=== PATIENT | female | born 1955 ===

== ENCOUNTER 2021-06-22 07:41 | Inpatient (IN) | payer SELFPAY ==
--- NOTE | 2021-06-22 08:00 | Consultation ---
Medications and Allergies Allergies Allergy/AdvReac Type Severity Reaction Status Date / Time No Known Allergies Allergy Unverified 06/22/21 07:44 Physical Examination - Vital Signs Vital Signs: Vital Signs Pulse Resp BP Pulse Ox 98 H 20 122/94 98 06/22/21 07:46 06/22/21 07:46 06/22/21 07:46 06/22/21 07:46 Assessment and Plan [facility] Consult Note # Demographics Consult Type: Acute Stroke Level 1 (0-4.5 hrs) Patient Location: Emergency Room First Name: Farnaz Last Name: Allie Age: 65 Gender: Male Facility: [facility] Time of Initial Page ( Time): 06/22/2021, 07:37 Time of Return Call ( Time): 06/22/2021, 07:38 # HPI History: 65F last well about 06:30, feeling sick and "weak" for about 4 days. Last night confused, able to get to bathroom, then appeared to have a seizure and not responsive after. No prior seizure history reported. Reportedly was hypoxic upon first check around 85%, now 99% on non-rebreather. Not speaking for EMS, looking to both sides, but seems to lean to left. No known blood thinner use. # Scores Time of exam and NIHSS (): 06/22/2021, 07:48 Level of Consciousness 1a: [1] = Not alert; but arousable by minor stim LOC Questions 1b: [2] = Answers neither correctly LOC Commands 1c: [2] = Performs neither correctly Best Gaze 2: [0] = Normal Visual 3: [0] = No visual loss Facial Palsy 4: [0] = Normal symmetrical movements Motor Arm Left 5a: [1] = Drift Motor Arm Right 5b: [1] = Drift Motor Leg Left 6a: [3] = No effort against gravity Motor Leg Right 6b: [3] = No effort against gravity Limb Ataxia 7: [0] = Absent Sensory 8: [0] = Normal Best Language 9: [3] = Mute Dysarthria 10: [2] = Severe dysarthria Extinction and Inattention 11: [0] = No abnormality NIHSS Total: 18 # Exam Additional Neurologic Exam: The patient is not following commands, no attempt to speak for me. NIHSS done as best possible, symmetric weakness and looking to both sides of bed. # Data Head CT: no bleed preliminarily reviewed by me, please refer to radiology read for official reading punctate hyperdensity left frontotemporal region appears to be calcification. # Assessment Impression: Altered Mental Status Seizure There is no clear focal deficit to make stroke likely, could be encephalopathy due to toxic/metabolic/infectious process(es) and seizure/post-ictal condition. Though she was better at 06:30, she was reportedly confused even last night, so time last completely well is unclear. Risk > benefit for IV tPA with available data. # Plan Thrombolytic/Intervention: NOT IV Thrombolysis or IA Intervention candidate Thrombolytic Exclusion (< 3 hour window): time of onset unclear Thrombolytic Exclusion: > 4.5 hours Intraarterial Exclusion: clinically not consistent with stroke Labs: B12 CBC comprehensive metabolic panel TSH ua Other: telemetry monitoring I have discussed my recommendations with the referring provider Additional Recommendations: Would prioritize medical stabilization. If recurrent seizure-like activity then would give keppra 2g IV once followed by 500mg IV BID pending further data. When possible, MRI brain wwo and EEG recommended. Disposition: admit # Logistics Telemedicine: Interactive 2 way audio and visual telecommunication technology was utilized during this visit
[2021-06-22 08:11] LABS: Basophils # (Auto) 0.1 K/mm3 (0.0-0.1); Basophils % (Auto) 0.7 % (0.0-1.8); Eosinophils % (Auto) 0.1 % (0.0-4.3); Hematocrit 41.2 % (30.3-42.9); Hemoglobin 14.3 gm/dl (10.1-14.3); Lymphocytes # (Auto) 0.8 K/mm3 (1.2-5.4); Lymphocytes % (Auto) 6.3 % (13.4-35.0); Mean Corpuscular HGB Conc 35 % (30-34); Mean Corpuscular Volume 85 fl (79-97); Monocytes % (Auto) 7.4 % (0.0-7.3); Platelet Count 260 K/mm3 (140-440); Red Blood Count 4.86 M/mm3 (3.65-5.03); Red Cell Distribution Width 13.2 % (13.2-15.2)
[2021-06-22] MEDS ORDERED: cefTRIAXone/NS 2 GM/100 ML 2 GM/100 ML BAG IV ONE (08:18)
[2021-06-22] MEDS ORDERED: AZITHROMYCIN/NS 500 MG/250 ML 500 MG/250 ML BAG IV ONE (08:18)
--- NOTE | 2021-06-22 08:19 | Cat Scan Report ---
NONENHANCED CT SCAN OF THE HEAD: INDICATION / CLINICAL INFORMATION: 65 years Female; CODE STROKE CALL ER MAIN AT 8199 neuro deficits <6hrs or sx present upon awakening. TECHNIQUE: Routine CT head without contrast. All CT scans at this location are performed using CT dos e reduction for ALARA by means of automated exposure control. COMPARISON: None. FINDINGS: BRAIN / INTRACRANIAL CONTENTS: No intracerebral hemorrhage or stroke mimics No acute hemorrhage, mass effect, midline shift, hydrocephalus, or acute, large territorial infarct. Both middle cerebral arteries have increased CT attenuation and hence nonspecific; one of the branch es of the right middle cerebral artery has increased attenuation; calcified embolus seen in the left sylvian fissure; No significant white matter abnormality. Temporal lobes and frontal lobes normal. On discussing these findings with the ER physician, I was informed Ms. Kelley presented with confus ion seizures and speech difficulty and no localizing weakness in the extremities. CRANIOCERVICAL JUNCTION: No significant abnormality. ORBITS: No significant abnormality of visualized orbits. SINUSES / MASTOIDS: No significant abnormality of the visualized paranasal sinuses or mastoid air carlos ls. ADDITIONAL FINDINGS: None. IMPRESSION: No intracerebral hemorrhage or stroke mimics focal calcification in the left the sylvian fissure probably calcified embolus; however, no focal are a of subacute ischemia in the left hemisphere Signer Name: Tolu Jimenez MD Signed: 06/22/2021 8:14 AM Workstation Name: [id number]
[2021-06-22 08:23] LABS: BUN/Creatinine Ratio 24; Blood Urea Nitrogen 12 mg/dL (7-17); Calcium 8.7 mg/dL (8.4-10.2); Hemolysis Index 9
--- NOTE | 2021-06-22 08:30 | Emergency Department Report ---
ED Altered Mental Status HPI - General Chief Complaint: Neuro Symptoms/Deficit Stated Complaint: AMS PUI?: Yes Time Seen by Provider: 06/22/21 07:57 Source: EMS Mode of arrival: Stretcher Limitations: Altered Mental Status - History of Present Illness Initial Comments: Chief complaint: "I feel bad." History limited due to altered mental status. History obtained from EMS. Significant other Cornel called EMS. EMS provided phone #[phone] which is not functioning at this time. HPI: This is a 65-year-old female with history of hypertension tobacco dependence and diabetes mellitus who presents with generalized malaise and altered mental status. For the last 4 days patient has been feeling unwell. Patient has required assistance walking around and bathing. She has been in bed due to illness. She appeared confused last night. This morning, male construction project coordinator witness seizure-like activity after he assisted her from the bathroom. MD Complaint: altered mental status, other (Seizure this morning) -: days(s) (4 days of generalized malaise) Severity: moderate Consistency of Symptoms: waxing and waning Context: other (4 days of generalized malaise) Associated Symptoms: malaise, seizure - Related Data Allergies Allergy/AdvReac Type Severity Reaction Status Date / Time No Known Allergies Allergy Unverified 06/22/21 07:44 ED Review of Systems ROS: Stated complaint: AMS Other details as noted in HPI Comment: Unobtainable due to pts medical conditions (Altered mental status) ED Past Medical Hx - Past Medical History Previous Medical History?: Yes Hx Hypertension: Yes Hx Diabetes: Yes - Surgical History Additional Surgical History: Unable to obtain - Social History Smoking Status: Current Every Day Smoker Substance Use Type: Other (Unable to obtain) ED Physical Exam - General Limitations: Altered Mental Status General appearance: lethargic, other (Will answer limited questions, harsh wet cough) - Head Head exam: Present: atraumatic, normocephalic - Eye Eye exam: Present: normal appearance, scleral icterus - ENT ENT exam: Present: mucous membranes dry - Neck Neck exam: Present: normal inspection, full ROM - Respiratory Respiratory exam: Present: wheezes, rales, rhonchi - Cardiovascular Cardiovascular Exam: Present: regular rate, normal rhythm, normal heart sounds. Absent: systolic murmur, diastolic murmur, rubs, gallop - GI/Abdominal GI/Abdominal exam: Present: soft, normal bowel sounds. Absent: distended, tenderness, guarding, rebound - Extremities Exam Extremities exam: Present: normal inspection - Neurological Exam Neurological exam: Present: altered, other (Oriented to name only) - Psychiatric Psychiatric exam: Present: flat affect - Skin Skin exam: Present: warm, dry, intact, pallor ED Course Vital Signs 06/22/21 06/22/21 06/22/21 07:46 08:23 08:32 Temperature 98.6 F Pulse Rate 98 H 113 H Respiratory 20 16 14 Rate Blood Pressure 163/96 Blood Pressure 122/94 [Right] O2 Sat by Pulse 98 80 L 92 Oximetry 06/22/21 08:35 Temperature Pulse Rate 114 H Respiratory Rate Blood Pressure Blood Pressure [Right] O2 Sat by Pulse Oximetry - Lab Data Result diagrams: 06/22/21 07:58 06/22/21 08:56 Lab Results 06/22/21 06/22/21 06/22/21 Range/Units 07:58 07:58 07:58 WBC 13.0 H (4.5-11.0) K/mm3 RBC 4.86 (3.65-5.03) M/mm3 Hgb 14.3 (10.1-14.3) gm/dl Hct 41.2 (30.3-42.9) % MCV 85 (79-97) fl MCH 29 (28-32) pg MCHC 35 H (30-34) % RDW 13.2 (13.2-15.2) % Plt Count 260 (140-440) K/mm3 Lymph % (Auto) 6.3 L (13.4-35.0) % [place] % (Auto) 7.4 H (0.0-7.3) % Eos % (Auto) 0.1 (0.0-4.3) % Baso % (Auto) 0.7 (0.0-1.8) % Lymph # (Auto) 0.8 L (1.2-5.4) K/mm3 [place] # (Auto) 1.0 H (0.0-0.8) K/mm3 Eos # (Auto) 0.0 (0.0-0.4) K/mm3 Baso # (Auto) 0.1 (0.0-0.1) K/mm3 Seg Neutrophils % 85.5 H (40.0-70.0) % Seg Neutrophils # 11.1 H (1.8-7.7) K/mm3 PT 11.8 L (12.2-14.9) Sec. INR 0.78 L (0.87-1.13) APTT 29.0 (24.2-36.6) Sec. Thrombin Time 15.9 (15.1-19.6) Sec. Sodium 107 L* (137-145) mmol/L Potassium 2.7 L* (3.6-5.0) mmol/L Chloride 60.0 L (98-107) mmol/L Carbon Dioxide 32 H (22-30) mmol/L Anion Gap 18 mmol/L BUN 12 (7-17) mg/dL Creatinine 0.5 L (0.6-1.2) mg/dL Estimated GFR > 60 ml/min BUN/Creatinine Ratio 24 % Glucose 177 H (65-100) mg/dL Lactic Acid (0.7-2.0) mmol/L Calcium 8.7 (8.4-10.2) mg/dL Ferritin (10.0-200.0) ng/mL Lactate Dehydrogenase (91-180) units/L Troponin T < 0.010 (0.00-0.029) ng/mL C-Reactive Protein (0.00-1.30) mg/dL 06/22/21 06/22/21 06/22/21 Range/Units 08:56 08:56 08:56 WBC (4.5-11.0) K/mm3 RBC (3.65-5.03) M/mm3 Hgb (10.1-14.3) gm/dl Hct (30.3-42.9) % MCV (79-97) fl MCH (28-32) pg MCHC (30-34) % RDW (13.2-15.2) % Plt Count (140-440) K/mm3 Lymph % (Auto) (13.4-35.0) % [place] % (Auto) (0.0-7.3) % Eos % (Auto) (0.0-4.3) % Baso % (Auto) (0.0-1.8) % Lymph # (Auto) (1.2-5.4) K/mm3 [place] # (Auto) (0.0-0.8) K/mm3 Eos # (Auto) (0.0-0.4) K/mm3 Baso # (Auto) (0.0-0.1) K/mm3 Seg Neutrophils % (40.0-70.0) % Seg Neutrophils # (1.8-7.7) K/mm3 PT (12.2-14.9) Sec. INR (0.87-1.13) APTT (24.2-36.6) Sec. Thrombin Time (15.1-19.6) Sec. Sodium (137-145) mmol/L Potassium (3.6-5.0) mmol/L Chloride (98-107) mmol/L Carbon Dioxide (22-30) mmol/L Anion Gap mmol/L BUN (7-17) mg/dL Creatinine (0.6-1.2) mg/dL Estimated GFR ml/min BUN/Creatinine Ratio % Glucose 179 H (65-100) mg/dL Lactic Acid 2.10 H* (0.7-2.0) mmol/L Calcium (8.4-10.2) mg/dL Ferritin 102.1 (10.0-200.0) ng/mL Lactate Dehydrogenase 220 H (91-180) units/L Troponin T (0.00-0.029) ng/mL C-Reactive Protein 5.40 H (0.00-1.30) mg/dL Laboratory Results - last 24 hr 06/22/21 06/22/21 06/22/21 07:58 07:58 07:58 WBC 13.0 H RBC 4.86 Hgb 14.3 Hct 41.2 MCV 85 MCH 29 MCHC 35 H RDW 13.2 Plt Count 260 Lymph % (Auto) 6.3 L [place] % (Auto) 7.4 H Eos % (Auto) 0.1 Baso % (Auto) 0.7 Lymph # (Auto) 0.8 L [place] # (Auto) 1.0 H Eos # (Auto) 0.0 Baso # (Auto) 0.1 Seg Neutrophils % 85.5 H Seg Neutrophils # 11.1 H PT 11.8 L INR 0.78 L APTT 29.0 Thrombin Time 15.9 Sodium 107 L* Potassium 2.7 L* Chloride 60.0 L Carbon Dioxide 32 H Anion Gap 18 BUN 12 Creatinine 0.5 L Estimated GFR > 60 BUN/Creatinine Ratio 24 Glucose 177 H Lactic Acid Calcium 8.7 Ferritin Lactate Dehydrogenase Troponin T < 0.010 C-Reactive Protein 06/22/21 06/22/21 06/22/21 08:56 08:56 08:56 WBC RBC Hgb Hct MCV MCH MCHC RDW Plt Count Lymph % (Auto) [place] % (Auto) Eos % (Auto) Baso % (Auto) Lymph # (Auto) [place] # (Auto) Eos # (Auto) Baso # (Auto) Seg Neutrophils % Seg Neutrophils # PT INR APTT Thrombin Time Sodium Potassium Chloride Carbon Dioxide Anion Gap BUN Creatinine Estimated GFR BUN/Creatinine Ratio Glucose 179 H Lactic Acid 2.10 H* Calcium Ferritin 102.1 Lactate Dehydrogenase 220 H Troponin T C-Reactive Protein 5.40 H Laboratory Results - last 24 hr 06/22/21 06/22/21 06/22/21 07:58 07:58 07:58 WBC 13.0 H RBC 4.86 Hgb 14.3 Hct 41.2 MCV 85 MCH 29 MCHC 35 H RDW 13.2 Plt Count 260 Lymph % (Auto) 6.3 L [place] % (Auto) 7.4 H Eos % (Auto) 0.1 Baso % (Auto) 0.7 Lymph # (Auto) 0.8 L [place] # (Auto) 1.0 H Eos # (Auto) 0.0 Baso # (Auto) 0.1 Seg Neutrophils % 85.5 H Seg Neutrophils # 11.1 H PT 11.8 L INR 0.78 L APTT 29.0 Thrombin Time 15.9 Sodium 107 L* Potassium 2.7 L* Chloride 60.0 L Carbon Dioxide 32 H Anion Gap 18 BUN 12 Creatinine 0.5 L Estimated GFR > 60 BUN/Creatinine Ratio 24 Glucose 177 H Lactic Acid Calcium 8.7 Ferritin Lactate Dehydrogenase Troponin T < 0.010 C-Reactive Protein 06/22/21 06/22/21 06/22/21 08:56 08:56 08:56 WBC RBC Hgb Hct MCV MCH MCHC RDW Plt Count Lymph % (Auto) [place] % (Auto) Eos % (Auto) Baso % (Auto) Lymph # (Auto) [place] # (Auto) Eos # (Auto) Baso # (Auto) Seg Neutrophils % Seg Neutrophils # PT INR APTT Thrombin Time Sodium Potassium Chloride Carbon Dioxide Anion Gap BUN Creatinine Estimated GFR BUN/Creatinine Ratio Glucose 179 H Lactic Acid 2.10 H* Calcium Ferritin 102.1 Lactate Dehydrogenase 220 H Troponin T C-Reactive Protein 5.40 H - Radiology Data Radiology results: report reviewed Patient Name: BRANNON KELLEY Gender: Female Date of : 1955 Referring Provider: KATIE CORREA Organization: [facility] Accession Number: [id number] Requested Date: June 22, 2021 07:47 Report Status: Final Requested Procedure: 1 Procedure Description: CT head/brain wo con Modality: CT Findings Reporting MD: Tolu Jimenez Dictation Time: June 22, 2021 07:14 Ornament Stitcher: Not available Transportation Security Officer Date: NONENHANCED CT SCAN OF THE HEAD: INDICATION / CLINICAL INFORMATION: 65 years Female; CODE STROKE CALL ER MAIN AT 8199 neuro deficits <6hrs or sx present upon awakening. TECHNIQUE: Routine CT head without contrast. All CT scans at this location are performed using CT dose reduction for ALARA by means of automated exposure control. COMPARISON: None. FINDINGS: BRAIN / INTRACRANIAL CONTENTS: No intracerebral hemorrhage or stroke mimics No acute hemorrhage, mass effect, midline shift, hydrocephalus, or acute, large territorial infarct. Both middle cerebral arteries have increased CT attenuation and hence nonspecific; one of the branches of the right middle cerebral artery has increased attenuation; calcified embolus seen in the left sylvian fissure; No significant white matter abnormality. Temporal lobes and frontal lobes normal. On discussing these findings with the ER physician, I was informed Ms. Kelley presented with confusion seizures and speech difficulty and no localizing weakness in the extremities. CRANIOCERVICAL JUNCTION: No significant abnormality. ORBITS: No significant abnormality of visualized orbits. SINUSES / MASTOIDS: No significant abnormality of the visualized paranasal sinuses or mastoid air cells. ADDITIONAL FINDINGS: None. IMPRESSION: No intracerebral hemorrhage or stroke mimics focal calcification in the left the sylvian fissure probably calcified embolus; however, no focal area of subacute ischemia in the left hemisphere Signer Name: Tolu Jimenez Patient Name: BRANNON KELLEY Gender: Female Date of : 1955 Referring Provider: KATIE CORREA Organization: [facility] Accession Number: [id number] Requested Date: June 22, 2021 08:18 Report Status: Final Requested Procedure: 1 Procedure Description: XR chest 1V ap Modality: XR Findings Reporting MD: Robert Hernandez Dictation Time: June 22, 2021 08:02 Ornament Stitcher: Not available Transportation Security Officer Date: XR chest 1V ap INDICATION / CLINICAL INFORMATION: Hypoxia cough. COMPARISON: None available. FINDINGS: SUPPORT DEVICES: None. HEART /PULMONARY VASCULATURE: No significant abnormality. LUNGS / PLEURA: There is asymmetric airspace opacity in the left lung base. Right lung is clear. No sizable pleural effusion. No pneumothorax. ADDITIONAL FINDINGS: No significant additional findings. IMPRESSION: Left basilar airspace opacity, may reflect atelectasis or pneumonia. Signer Name: Robert Hernandez MD Signed: 06/22/2021 8:02 AM Workstation Name: [id number] - Medical Decision Making 1. Acute metabolic encephalopathy and seizure due to severe hyponatremia unclear cause differential includes water intoxication, medication effect, malignancy. 100 mL 3% hypertonic saline bolus ordered. Chiropractic Care Dr. Beaver consulted. 2. Community acquired pneumonia acute respiratory failure hypoxia, room air oxygen 85% on room air: Bacterial infection suspected will rule out COVID-19. Admitted in critical condition to CCU. Field Broomer Dr. Chapman consulted Critical Care Time: Yes Critical care time in (mins) excluding proc time.: 40 Critical care attestation.: If time is entered above; I have spent that time in minutes in the direct care of this critically ill patient, excluding procedure time. 40 minutes of critical care time excluding procedures were used in the care of the patient. I came immediately to the bedside upon patient's arrival. I obtained history from EMS at the bedside. I discussed treatment plan with the nursing team members. I reviewed electronic record. I attempted to contact male construction project coordinator several times. I spoke with multiple consultants including hospitalist, java sdet, teleneurologist, radiologist. Patient required multiple interventions and reassessments. ED Disposition Clinical Impression: Acute metabolic encephalopathy, Acute hyponatremia, Community acquired pneumonia Disposition: ADMITTED INPATIENT Is pt being admited?: Yes Does the pt Need Aspirin: No Condition: Critical Instructions: Bacterial Pneumonia (ED)
[2021-06-22 08:34] LABS: INR 0.78 (0.87-1.13)
[2021-06-22 08:35] LABS: Thrombin Time 15.9 Sec. (15.1-19.6)
--- NOTE | 2021-06-22 09:07 | XRay Report ---
XR chest 1V ap INDICATION / CLINICAL INFORMATION: Hypoxia cough. COMPARISON: None available. FINDINGS: SUPPORT DEVICES: None. HEART /PULMONARY VASCULATURE: No significant abnormality. LUNGS / PLEURA: There is asymmetric airspace opacity in the left lung base. Right lung is clear. No s izable pleural effusion. No pneumothorax. ADDITIONAL FINDINGS: No significant additional findings. IMPRESSION: Left basilar airspace opacity, may reflect atelectasis or pneumonia. Signer Name: Robert Hernandez MD Signed: 06/22/2021 9:02 AM Workstation Name: [id number]
[2021-06-22 09:21] LABS: C-Reactive Protein 5.4 mg/dL (0.00-1.30)
[2021-06-22] MEDS ORDERED: SODIUM CHLORIDE 3% IV ONE ×2 (11:00→16:00)
--- NOTE | 2021-06-22 11:12 | Consultation ---
History of Present Illness - Reason for Consult Consult date: 06/22/21 hyponatremia Requesting physician: KATIE CORREA - History of Present Illness 65-year-old lady with a history of diabetes mellitus, hypertension tobacco abuse brought to the hospital because of confusion and seizure-like activity this morning. Patient has been unwell for the last 4 days. She usually requires assistance walking and bathing. She has been lying in bed for the last 4 days. She was noted to be confused last night and this morning had a witnessed seizure-like activity and so was brought to the hospital for further evaluation. Chest x-ray showed left basilar airspace opacity. Sodium was quite low at 107 mmol/L with potassium of 2.7 mmol/L BUN/creatinine normal at 12/0.5 mg/dL. I am consulted to assist with managing electrolyte abnormalities. Repeat sodium was requested and came back at 104 mmol/L. Patient is on a thiazide diuretic. She is not using nonsteroidal anti-inflammatory drugs. Past History Past Medical History: diabetes, hypertension Past Surgical History: No surgical history Social history: other Family history: other (Unable to obtain due to patient's mental status) Medications and Allergies Allergies Allergy/AdvReac Type Severity Reaction Status Date / Time No Known Allergies Allergy Unverified 06/22/21 07:44 Home Medications Medication Instructions Recorded Confirmed Last Taken Type Atenolol/Chlorthalidone [Tenoretic 1 tab PO DAILY 06/22/21 06/22/21 Unknown History 50-25] Clopidogrel [Plavix] 75 mg PO DAILY 06/22/21 06/22/21 Unknown History Glimepiride [Amaryl] 2 mg PO QAM 06/22/21 06/22/21 Unknown History Pioglitazone [Actos] 15 mg PO DAILY 06/22/21 06/22/21 Unknown History Pravastatin [Pravachol] 40 mg PO QHS 06/22/21 06/22/21 Unknown History lisinopriL [Zestril TAB] 5 mg PO DAILY 06/22/21 06/22/21 Unknown History Active Meds: Active Medications Miscellaneous Information 100 (ml/ Sodium Chloride) 100 mls @ 70 mls/hr IV ONCE ONE Stop: 06/22/21 12:25 Review of Systems ROS unobtainable: due to mental status Exam - Vital Signs Vital signs: Vital Signs Pulse Resp BP Pulse Ox 98 H 20 122/94 98 12/27/21 07:46 06/22/21 07:46 06/22/21 07:46 06/22/21 07:46 - Physical Exam Narrative exam: Patient was not examined at the bedside today due to personal protective equipment preservation during the COVID-19 pandemic Results - Lab Results 06/22/21 07:58 06/22/21 18:19 Most recent lab results Calcium 8.7 mg/dL (8.4-10.2) 06/22/21 07:58 Assessment and Plan - Patient Problems (1) Acute hyponatremia Current Visit: Yes Status: Acute Plan to address problem: Hyponatremia of multifactorial etiology secondary to thiazide diuretic and possible tea and toast diet. Also concerned about SIADH given her smoking history and abnormal chest x-ray. Will get urine sodium and osmolality and check serum osmolality. Check TSH and uric acid and random cortisol. Thiazide diuretic has been stopped I ordered 3% saline but before he could be given, sodium had improved to 112 mmol/L (8 mmol increase in less than 12 hours )and so I have held off on giving it for now. We will continue to monitor sodium closely. (2) Acute metabolic encephalopathy Current Visit: Yes Status: Acute Plan to address problem: Continue neuro monitoring. Neurology was also consulted (3) Hypokalemia Current Visit: Yes Status: Acute Plan to address problem: Due to moderate dose thiazide diuretic and also probably poor oral intake. Thiazide diuretic has been stopped. Supplement potassium aggressively and follow-up levels. Check magnesium level. (4) Community acquired pneumonia Current Visit: Yes Status: Acute Plan to address problem: Empiric antibiotics. Follow-up SARS coronavirus 2 PCR. Follow-up imaging of the chest (5) Essential (primary) hypertension Current Visit: Yes Status: Acute Plan to address problem: Follow-up blood pressure off of thiazide diuretic. We will start spironolactone if needed. (6) Type 2 diabetes mellitus without complications Current Visit: Yes Status: Acute Plan to address problem: Blood sugar management by primary attending
[2021-06-22 11:51] LABS: Blood Urea Nitrogen 12 mg/dL (7-17); Calcium 8.7 mg/dL (8.4-10.2); Hemolysis Index 14
[2021-06-22 11:52] LABS: BUN/Creatinine Ratio 30
--- NOTE | 2021-06-22 13:00 | Event Note ---
Date: 06/22/21 repeat sodium came back still 104. We will start 3% saline. Close neuro monitoring. Close monitoring of sodium. Discussed with RN. Follow-up urine sodium and other tests
[2021-06-22] MEDS ORDERED: SODIUM CHLORIDE 3% 120 ML IV ONE (13:23)
[2021-06-22] MEDS ORDERED: SODIUM CHLORIDE 0.9% 1000 ML 1,000 ML IV SCH (13:30)
[2021-06-22 13:39] LABS: Bacteria,Urine 1+ /HPF (Negative); Bilirubin,Urine NEG (Negative); Blood,Urine MOD (Negative); Color,Urine Yellow (Yellow); Hyaline Casts,Urine 5 /LPF; Mucus,Urine FEW /HPF; Urobilinogen,Urine < 2.0 mg/dL (<2.0)
[2021-06-22 13:45] LABS: Osmolality,Urine 571 Mosm/kg
[2021-06-22 13:58] LABS: Protein,Urine >500 mg/dL (Negative)
[2021-06-22 15:06] LABS: Blood Urea Nitrogen 11 mg/dL (7-17); Calcium 8.6 mg/dL (8.4-10.2); Hemolysis Index 15
[2021-06-22 15:07] LABS: BUN/Creatinine Ratio 28
[2021-06-22 18:50] LABS: Blood Urea Nitrogen 9 mg/dL (7-17); Calcium 8.5 mg/dL (8.4-10.2); Hemolysis Index 7
[2021-06-22 18:52] LABS: BUN/Creatinine Ratio 30
--- NOTE | 2021-06-22 19:50 | Progress Note ---
Subjective Date of service: 06/22/21 Interval history: Called by RN, repeat Sodium still 112. Patient had not received 3 % Saline. Continue to hold it and monitor sodium closely. Mental status has improved as Patient now knows she iis in the hospital. Objective - Vital Signs Vital signs: Vital Signs - 12hr 06/22/21 06/22/21 06/22/21 08:16 08:23 08:30 Temperature 98.6 F Pulse Rate 118 H 113 H 107 H Respiratory 20 16 22 Rate Blood Pressure 163/96 163/56 Blood Pressure [Right] O2 Sat by Pulse 80 L 92 Oximetry 06/22/21 06/22/21 06/22/21 08:32 08:35 08:45 Temperature Pulse Rate 114 H Respiratory 14 Rate Blood Pressure 143/68 Blood Pressure [Right] O2 Sat by Pulse 92 94 Oximetry 06/22/21 06/22/21 06/22/21 09:00 09:15 09:30 Temperature Pulse Rate 106 H 105 H 97 H Respiratory 24 22 15 Rate Blood Pressure 145/78 145/78 152/59 Blood Pressure [Right] O2 Sat by Pulse 87 83 L 85 Oximetry 06/22/21 06/22/21 06/22/21 09:45 10:00 10:15 Temperature Pulse Rate 77 75 86 Respiratory 15 18 17 Rate Blood Pressure 138/37 129/45 129/45 Blood Pressure [Right] O2 Sat by Pulse 84 92 98 Oximetry 06/22/21 06/22/21 06/22/21 10:30 10:45 11:00 Temperature Pulse Rate 98 H 97 H 110 H Respiratory 12 22 22 Rate Blood Pressure 120/66 120/66 143/78 Blood Pressure [Right] O2 Sat by Pulse 91 89 93 Oximetry 06/22/21 06/22/21 06/22/21 11:15 11:30 11:45 Temperature Pulse Rate 97 H 96 H 100 H Respiratory 14 14 21 Rate Blood Pressure 139/61 130/50 135/47 Blood Pressure [Right] O2 Sat by Pulse 88 84 90 Oximetry 06/22/21 06/22/21 06/22/21 12:00 12:15 12:31 Temperature Pulse Rate 98 H 94 H 80 Respiratory 20 19 14 Rate Blood Pressure 141/60 141/60 141/60 Blood Pressure [Right] O2 Sat by Pulse 91 89 89 Oximetry 06/22/21 06/22/21 06/22/21 12:42 12:45 13:01 Temperature Pulse Rate 99 H 88 Respiratory 22 13 Rate Blood Pressure 141/60 141/60 Blood Pressure [Right] O2 Sat by Pulse 92 91 93 Oximetry 06/22/21 06/22/21 06/22/21 13:15 13:31 13:45 Temperature Pulse Rate 74 75 73 Respiratory 14 12 18 Rate Blood Pressure 141/60 141/60 141/60 Blood Pressure [Right] O2 Sat by Pulse 93 97 97 Oximetry 06/22/21 06/22/21 06/22/21 14:01 14:15 14:31 Temperature Pulse Rate 78 88 75 Respiratory 18 18 15 Rate Blood Pressure 141/60 141/60 141/60 Blood Pressure [Right] O2 Sat by Pulse 94 92 94 Oximetry 06/22/21 06/22/21 06/22/21 14:45 14:55 15:01 Temperature Pulse Rate 85 110 H 95 H Respiratory 14 16 16 Rate Blood Pressure 141/60 141/60 Blood Pressure 151/89 [Right] O2 Sat by Pulse 94 93 94 Oximetry 06/22/21 06/22/21 06/22/21 15:15 15:31 15:45 Temperature Pulse Rate 77 73 74 Respiratory 12 15 22 Rate Blood Pressure 141/60 141/60 141/60 Blood Pressure [Right] O2 Sat by Pulse 94 94 96 Oximetry 06/22/21 06/22/21 06/22/21 16:01 16:15 16:31 Temperature Pulse Rate 68 74 94 H Respiratory 17 18 16 Rate Blood Pressure 141/60 141/60 141/60 Blood Pressure [Right] O2 Sat by Pulse 96 95 93 Oximetry 06/22/21 06/22/21 06/22/21 16:45 17:01 17:15 Temperature Pulse Rate 91 H 83 82 Respiratory 16 18 18 Rate Blood Pressure 141/60 141/60 141/60 Blood Pressure [Right] O2 Sat by Pulse 93 94 94 Oximetry 06/22/21 06/22/21 06/22/21 17:31 17:45 18:00 Temperature Pulse Rate 89 80 86 Respiratory 16 14 19 Rate Blood Pressure 119/51 119/51 129/46 Blood Pressure [Right] O2 Sat by Pulse 92 94 87 Oximetry 06/22/21 06/22/21 06/22/21 18:15 18:31 18:45 Temperature Pulse Rate 90 91 H 95 H Respiratory 24 9 L 24 Rate Blood Pressure 129/46 129/46 129/46 Blood Pressure [Right] O2 Sat by Pulse 83 L 83 L 89 Oximetry 06/22/21 06/22/21 06/22/21 19:01 19:15 19:31 Temperature Pulse Rate 90 91 H 94 H Respiratory 17 18 14 Rate Blood Pressure 129/46 129/46 129/46 Blood Pressure [Right] O2 Sat by Pulse 88 93 88 Oximetry - Lab 06/22/21 07:58 06/22/21 18:19 Most recent lab results Calcium 8.5 mg/dL (8.4-10.2) 06/22/21 18:19 Urine Sodium 25 mmol/L 06/22/21 11:47 Medications & Allergies - Medications Allergies/Adverse Reactions: Allergies No Known Allergies Allergy (Unverified 06/22/21 07:44) Home Medications: Home Medications Medication Instructions Recorded Confirmed Last Taken Type Atenolol/Chlorthalidone [Tenoretic 1 tab PO DAILY 06/22/21 06/22/21 Unknown History 50-25] Clopidogrel [Plavix] 75 mg PO DAILY 06/22/21 06/22/21 Unknown History Glimepiride [Amaryl] 2 mg PO QAM 06/22/21 06/22/21 Unknown History Pioglitazone [Actos] 15 mg PO DAILY 06/22/21 06/22/21 Unknown History Pravastatin [Pravachol] 40 mg PO QHS 06/22/21 06/22/21 Unknown History lisinopriL [Zestril TAB] 5 mg PO DAILY 06/22/21 06/22/21 Unknown History Active Medications: Generic Name Dose Route Start Last Admin Trade Name Peterq PRN Reason Stop Dose Admin Sodium Chloride 1,000 mls @ 75 mls/hr 06/22/21 13:30 06/22/21 16:10 Nacl 0.9% 1000 Ml IV 75 mls/hr DIRECT JUDY Administration
--- NOTE | 2021-06-22 22:10 | History and Physical Report ---
History of Present Illness Date of examination: 06/22/21 Date of admission: 06/22/21 10:44 Chief complaint: Altered sensorium since a.m. History of present illness: 55-year-old female with hypertension: HPI: This is a 65-year-old female with history of hypertension tobacco and diabetes mellitus sent in for severe weakness and altered mental status. Patient has not been feeling well for the last 4 days. Patient requires assistance walking around and with other ADLs. No fever. Her male band lining bander witnessed seizure-like activity with saline. Patient is on diu retics--chlorthalidone. - Past Medical History --Previous Medical History?: Yes --Hypertension: Yes --Diabetes: Yes - Surgical History Additional Surgical History: Unable to obtain - Social History --Smoking Status: Current Every Day Smoker --Substance Use Type: Other (Unable to obtain) Review of Systems ROS: Stated complaint: AMS Other details as noted in HPI Comment: Unobtainable due to pts medical conditions (Altered mental status) Medications and Allergies Allergies Allergy/AdvReac Type Severity Reaction Status Date / Time No Known Allergies Allergy Unverified 06/22/21 07:44 Home Medications Medication Instructions Recorded Confirmed Last Taken Type Atenolol/Chlorthalidone [Tenoretic 1 tab PO DAILY 06/22/21 06/22/21 Unknown History 50-25] Clopidogrel [Plavix] 75 mg PO DAILY 06/22/21 06/22/21 Unknown History Glimepiride [Amaryl] 2 mg PO QAM 06/22/21 06/22/21 Unknown History Pioglitazone [Actos] 15 mg PO DAILY 06/22/21 06/22/21 Unknown History Pravastatin [Pravachol] 40 mg PO QHS 06/22/21 06/22/21 Unknown History lisinopriL [Zestril TAB] 5 mg PO DAILY 06/22/21 06/22/21 Unknown History Active Meds: Active Medications Sodium Chloride (Nacl 0.9% 1000 Ml) 1,000 mls @ 75 mls/hr IV DIRECT JUDY Last Admin: 06/22/21 16:10 Dose: 75 mls/hr Documented by: Exam - Constitutional Vitals: Temp Pulse Resp BP Pulse Ox 98.6 F 94 H 14 129/46 88 06/22/21 08:23 06/22/21 19:31 06/22/21 19:31 06/22/21 19:31 06/22/21 19:31 General appearance: Present: mild distress, well-nourished - EENT Eyes: Present: PERRL ENT: hearing intact, clear oral mucosa - Neck Neck: Present: supple, normal ROM - Respiratory Respiratory effort: normal Respiratory: bilateral: CTA - Cardiovascular Heart rate: 98 Rhythm: regular Heart Sounds: Present: S1 & S2. Absent: rub, click - Extremities Extremities: pulses symmetrical, No edema Peripheral Pulses: within normal limits - Abdominal General gastrointestinal: Present: soft, non-tender, non-distended, normal bowel sounds Female genitourinary: Present: normal - Integumentary Integumentary: Present: clear, warm, dry - Musculoskeletal Musculoskeletal: strength equal bilaterally, generalized weakness - Psychiatric Psychiatric: appropriate mood/affect, intact judgment & insight, depressed - Neurologic Neurologic: CNII-XII intact, moves all extremities - Allied Health Allied health notes reviewed: nursing, case management HEART Score - HEART Score Troponin: Troponin T < 0.010 ng/mL (0.00-0.029) 06/22/21 07:58 Results - Labs CBC & Chem 7: 06/23/21 05:29 06/23/21 05:29 Labs: Laboratory Last Values WBC 13.0 K/mm3 (4.5-11.0) H 06/22/21 07:58 RBC 4.86 M/mm3 (3.65-5.03) 06/22/21 07:58 Hgb 14.3 gm/dl (10.1-14.3) 06/22/21 07:58 Hct 41.2 % (30.3-42.9) 06/22/21 07:58 MCV 85 fl (79-97) 06/22/21 07:58 MCH 29 pg (28-32) 06/22/21 07:58 MCHC 35 % (30-34) H 06/22/21 07:58 RDW 13.2 % (13.2-15.2) 06/22/21 07:58 Plt Count 260 K/mm3 (140-440) 06/22/21 07:58 Lymph % (Auto) 6.3 % (13.4-35.0) L 06/22/21 07:58 [place] % (Auto) 7.4 % (0.0-7.3) H 06/22/21 07:58 Eos % (Auto) 0.1 % (0.0-4.3) 06/22/21 07:58 Baso % (Auto) 0.7 % (0.0-1.8) 06/22/21 07:58 Lymph # (Auto) 0.8 K/mm3 (1.2-5.4) L 06/22/21 07:58 [place] # (Auto) 1.0 K/mm3 (0.0-0.8) H 06/22/21 07:58 Eos # (Auto) 0.0 K/mm3 (0.0-0.4) 06/22/21 07:58 Baso # (Auto) 0.1 K/mm3 (0.0-0.1) 06/22/21 07:58 Seg Neutrophils % 85.5 % (40.0-70.0) H 06/22/21 07:58 Seg Neutrophils # 11.1 K/mm3 (1.8-7.7) H 06/22/21 07:58 PT 11.8 Sec. (12.2-14.9) L 06/22/21 07:58 INR 0.78 (0.87-1.13) L 06/22/21 07:58 APTT 29.0 Sec. (24.2-36.6) 06/22/21 07:58 Thrombin Time 15.9 Sec. (15.1-19.6) 06/22/21 07:58 Sodium 112 mmol/L (137-145) L* 06/22/21 18:19 Potassium 2.7 mmol/L (3.6-5.0) L* 06/22/21 18:19 Chloride 65.8 mmol/L (98-107) L 06/22/21 18:19 Carbon Dioxide 31 mmol/L (22-30) H 06/22/21 18:19 Anion Gap 18 mmol/L 06/22/21 18:19 BUN 9 mg/dL (7-17) 06/22/21 18:19 Creatinine 0.3 mg/dL (0.6-1.2) L 06/22/21 18:19 Estimated GFR > 60 ml/min 06/22/21 18:19 BUN/Creatinine Ratio 30 % 06/22/21 18:19 Glucose 99 mg/dL (65-100) 06/22/21 18:19 Osmolality 223 Mosm/kg 06/22/21 07:58 Lactic Acid 1.20 mmol/L (0.7-2.0) 06/22/21 11:28 Calcium 8.5 mg/dL (8.4-10.2) 06/22/21 18:19 Ferritin 102.1 ng/mL (10.0-200.0) 06/22/21 08:56 Lactate Dehydrogenase 220 units/L (91-180) H 06/22/21 08:56 Troponin T < 0.010 ng/mL (0.00-0.029) 06/22/21 07:58 C-Reactive Protein 5.40 mg/dL (0.00-1.30) H 06/22/21 08:56 Procalcitonin < 0.05 ng/mL (<0.15) 06/22/21 08:56 TSH 1.070 mlU/mL (0.270-4.200) 06/22/21 07:58 Urine Color Yellow (Yellow) 06/22/21 11:47 Urine Turbidity Slightly-cloudy (Clear) 06/22/21 11:47 Urine pH 6.0 (5.0-7.0) 06/22/21 11:47 Ur Specific [place] 1.021 (1.003-1.030) 06/22/21 11:47 Urine Protein >500 mg/dL (Negative) 06/22/21 11:47 Urine Glucose (UA) >=500 mg/dL (Negative) 06/22/21 11:47 Urine Ketones 80 mg/dL (Negative) 06/22/21 11:47 Urine Blood Mod (Negative) 06/22/21 11:47 Urine Nitrite Neg (Negative) 06/22/21 11:47 Urine Bilirubin Neg (Negative) 06/22/21 11:47 Urine Urobilinogen < 2.0 mg/dL (<2.0) 06/22/21 11:47 Ur Leukocyte Esterase Neg (Negative) 06/22/21 11:47 Urine WBC (Auto) 11.0 /HPF (0.0-6.0) H 06/22/21 11:47 Urine RBC (Auto) 3.0 /HPF (0.0-6.0) 06/22/21 11:47 U Epithel Cells (Auto) 3.0 /HPF (0-13.0) 06/22/21 11:47 Urine Bacteria (Auto) 1+ /HPF (Negative) 06/22/21 11:47 Ur Transition Epith Cell 1 /HPF 06/22/21 11:47 Hyaline Casts 5 /LPF 06/22/21 11:47 Urine Mucus Few /HPF 06/22/21 11:47 Urine Yeast (Budding) Few /HPF 06/22/21 11:47 Urine Osmolality 571 Mosm/kg 06/22/21 11:47 Urine Sodium 25 mmol/L 06/22/21 11:47 Coronavirus (PCR) Negative (Negative) 06/22/21 Unknown Short CBC 06/22/21 06/23/21 Range/Units 07:58 05:29 WBC 13.0 H 12.4 H (4.5-11.0) K/mm3 Hgb 14.3 14.0 (10.1-14.3) gm/dl Hct 41.2 41.8 (30.3-42.9) % Plt Count 260 284 (140-440) K/mm3 [facility] 06/22/21 06/22/21 06/22/21 07:58 08:56 08:56 Sodium 107 L* 104 L* Potassium 2.7 L* 3.2 L Chloride 60.0 L 60.0 L Carbon Dioxide 32 H 26 BUN 12 12 Creatinine 0.5 L 0.4 L Glucose 177 H 179 H 181 H Calcium 8.7 8.7 06/22/21 06/22/21 06/23/21 14:20 18:19 05:29 Sodium 112 L* D 112 L* 112 L* Potassium 2.7 L* 2.7 L* 2.6 L* Chloride 65.2 L 65.8 L 67.5 L Carbon Dioxide 32 H 31 H 33 H BUN 11 9 10 Creatinine 0.4 L 0.3 L 0.4 L Glucose 119 H 99 90 Calcium 8.6 8.5 8.4 Cardiac Enzymes 06/22/21 Range/Units 07:58 Troponin T < 0.010 (0.00-0.029) ng/mL Urine 06/22/21 Range/Units 11:47 Urine Color Yellow (Yellow) Urine pH 6.0 (5.0-7.0) Ur Specific [place] 1.021 (1.003-1.030) Urine Protein >500 (Negative) mg/dL Urine Glucose (UA) >=500 (Negative) mg/dL Microbiology: Microbiology 06/22/21 08:56 Peripheral/Venous Blood Culture - Preliminary Culture in Progress 06/22/21 08:56 Peripheral/Venous Blood Culture - Preliminary Culture in Progress - Imaging and Cardiology EKG: report reviewed Chest x-ray: report reviewed Imaging and Cardiology: CT head No intracranial hemorrhage or stroke Chest x-ray left basilar airspace opacities may reflect atelectasis or pneumonia Assessment and Plan Assessment and plan: Critical care statement The high probability OF a clinically significant sudden or life-threatening deterioration of the cardiorespiratory system and endocrine system required my full and direct attention, intervention and postoperative management. The aggregate critical care time was 40 minutes. The time is in addition to time spent performing reported procedures but includes the followin: Data review and interpretation 2: Patient assessment and monitoring of vital signs 3: Documentation 4:: Medication orders and management Advance Directives: Yes (Full code) VTE prophylaxis?: Chemical Plan of care discussed with patient/family: Yes - Patient Problems (1) Acute metabolic encephalopathy Current Visit: Yes Status: Acute Plan to address problem: Secondary to severe hyponatremia Hyponatremia to be corrected Urine osmolarity and serum osmolarity Nephrology consult requested (2) Acute hyponatremia Current Visit: Yes Status: Acute Plan to address problem: 83% saline mL followed by normal saline (3) Hypokalemia Current Visit: Yes Status: Acute Plan to address problem: Supplemented aggressively (4) Community acquired pneumonia Current Visit: Yes Status: Acute Plan to address problem: IV Rocephin and Zithromax for now (5) Essential (primary) hypertension Current Visit: Yes Status: Acute Plan to address problem: Chlorthalidone held Continue antihypertensives without diuretics (6) Type 2 diabetes mellitus without complications Current Visit: Yes Status: Chronic Plan to address problem: Coverage for now Check hemoglobin A1c (7) Hypomagnesemia Current Visit: Yes Status: Acute Plan to address problem: Supplemented (8) UTI (urinary tract infection) Current Visit: Yes Status: Acute Qualifiers: Urinary tract infection type: acute cystitis Plan to address problem: Patient is on Rocephin for the pneumonia Urine cultures pending (9) DVT prophylaxis Current Visit: Yes Status: Acute Plan to address problem: On heparin GI prophylaxis
[2021-06-22] MEDS ORDERED: ONDANSETRON 4 MG/2 ML INJ IV PRN (22:21)
[2021-06-22] MEDS ORDERED: METOCLOPRAMIDE 10 MG/2 ML INJ IV PRN (22:21)
[2021-06-22] MEDS ORDERED: oxyCODONE /ACETAMINOPHEN 5-325MG TAB PO PRN (22:21)
[2021-06-23] MEDS: INSULIN LISPRO 100 UNIT/ML SUB-Q SCH ×6 (00:37→17:46)
[2021-06-23] MEDS: POTASSIUM CHLORIDE 10 MEQ 10 MEQ/100 ML BAG IV SCH ×10 (01:52→18:03)
[2021-06-23] MEDS: FAMOTIDINE 20 MG/2 ML INJ IV SCH ×2 (01:56→11:29)
[2021-06-23] MEDS: HEPARIN 5,000 UNIT/1 ML VIAL SUB-Q SCH ×2 (01:57→11:29)
[2021-06-23 05:59] LABS: Blood Urea Nitrogen 10 mg/dL (7-17); Calcium 8.4 mg/dL (8.4-10.2); Hemolysis Index 22; Uric Acid 3.2 mg/dL (3.5-7.6)
[2021-06-23 06:06] LABS: BUN/Creatinine Ratio 25; Basophils % (Auto) 0.1 % (0.0-1.8); Eosinophils % (Auto) 0.1 % (0.0-4.3); Hematocrit 41.8 % (30.3-42.9); Lymphocytes # (Auto) 0.7 K/mm3 (1.2-5.4); Lymphocytes % (Auto) 5.8 % (13.4-35.0); Mean Corpuscular HGB Conc 34 % (30-34); Mean Corpuscular Volume 88 fl (79-97); Monocytes # (Auto) 0.9 K/mm3 (0.0-0.8); Monocytes % (Auto) 6.9 % (0.0-7.3); Platelet Count 284 K/mm3 (140-440); Red Blood Count 4.75 M/mm3 (3.65-5.03); Red Cell Distribution Width 13.3 % (13.2-15.2)
[2021-06-23] MEDS ORDERED: POTASSIUM CHLORIDE 10 MEQ 10 MEQ/100 ML BAG IV ONE (07:13)
[2021-06-23] MEDS ORDERED: MAGNESIUM SULFATE 2 GM/50 ML BAG IV SCH (08:00)
--- NOTE | 2021-06-23 08:32 | Progress Note ---
Assessment and Plan - Patient Problems (1) Acute hyponatremia Current Visit: Yes Status: Acute Plan to address problem: Hyponatremia of multifactorial etiology secondary to thiazide diuretic and possible tea and toast diet. Also concerned about SIADH given her smoking history and abnormal chest x-ray. Urine osmolality is high and sodium to steroids unlikely. Sodium has stayed at 112 for more than 10 hours. Will give 3% saline and follow-up sodium closely. (2) Acute metabolic encephalopathy Current Visit: Yes Status: Acute Plan to address problem: Improving. Continue neuro monitoring. (3) Hypokalemia Current Visit: Yes Status: Acute Plan to address problem: Due to moderate dose thiazide diuretic and also probably poor oral intake. Thiazide diuretic has been stopped. Supplement potassium aggressively and follow-up levels. (4) Community acquired pneumonia Current Visit: Yes Status: Acute Plan to address problem: Empiric antibiotics. Follow-up SARS coronavirus 2 PCR. Follow-up imaging of the chest (5) Essential (primary) hypertension Current Visit: Yes Status: Acute Plan to address problem: Follow-up blood pressure off of thiazide diuretic. We will start spironolactone if needed. (6) Type 2 diabetes mellitus without complications Current Visit: Yes Status: Chronic Plan to address problem: Blood sugar management by primary attending Subjective Date of service: 06/23/21 Principal diagnosis: Hyponatremia Interval history: Patient seen lying in bed in the ER. ". She is awake but confused. Can I get a Covid shot" Objective - Exam Narrative Exam: Middle-aged female lying in bed in no acute distress HEENT: NCAT, pink conjunctiva Neck: Supple, no venous distention CVS: S1S2 RRR with no murmur, rub or gallop Chest: Clear to auscultation Abdomen: Protuberant, soft, nontender, no organomegaly, bowel sounds are present Extremities: No edema Neuro: Awake, oriented to person and to the hospital - Vital Signs Vital signs: Vital Signs - 12hr 06/22/21 06/22/21 06/22/21 20:45 21:01 21:15 Pulse Rate Respiratory 18 18 17 Rate Blood Pressure 132/81 132/81 132/81 O2 Sat by Pulse 94 66 L 95 Oximetry 06/22/21 06/22/21 06/22/21 21:31 21:45 22:01 Pulse Rate Respiratory 18 18 16 Rate Blood Pressure 132/81 132/81 111/36 O2 Sat by Pulse 94 95 93 Oximetry 06/22/21 06/22/21 06/22/21 22:15 22:31 22:45 Pulse Rate 89 Respiratory 17 15 15 Rate Blood Pressure 111/36 111/36 111/54 O2 Sat by Pulse 95 89 94 Oximetry 06/22/21 06/22/21 06/22/21 23:00 23:15 23:30 Pulse Rate 78 84 Respiratory 16 15 22 Rate Blood Pressure 118/60 118/60 118/41 O2 Sat by Pulse 94 95 95 Oximetry 06/22/21 06/23/21 06/23/21 23:45 00:00 00:15 Pulse Rate 98 H 74 88 Respiratory 19 16 20 Rate Blood Pressure 118/41 111/51 111/51 O2 Sat by Pulse 95 94 93 Oximetry 06/23/21 06/23/21 06/23/21 00:30 00:45 01:00 Pulse Rate 98 H Respiratory 18 13 15 Rate Blood Pressure 102/43 102/43 93/39 O2 Sat by Pulse 90 90 86 Oximetry 06/23/21 06/23/21 06/23/21 01:15 01:30 01:45 Pulse Rate 97 H 82 86 Respiratory 13 17 25 H Rate Blood Pressure 93/39 106/43 106/43 O2 Sat by Pulse 91 93 92 Oximetry 06/23/21 06/23/21 06/23/21 02:00 02:15 02:30 Pulse Rate 92 H 82 89 Respiratory 15 13 15 Rate Blood Pressure 120/52 120/52 111/51 O2 Sat by Pulse 92 93 70 L Oximetry 06/23/21 06/23/21 06/23/21 02:45 03:00 03:15 Pulse Rate 100 H 104 H 92 H Respiratory 20 21 17 Rate Blood Pressure 111/51 105/62 105/62 O2 Sat by Pulse 90 97 95 Oximetry 06/23/21 06/23/21 06/23/21 03:30 03:45 04:00 Pulse Rate 94 H 106 H 99 H Respiratory 14 19 16 Rate Blood Pressure 128/57 128/57 111/51 O2 Sat by Pulse 93 93 93 Oximetry 06/23/21 06/23/21 06/23/21 04:15 04:30 04:45 Pulse Rate 99 H 100 H 120 H Respiratory 16 19 18 Rate Blood Pressure 111/51 111/57 111/57 O2 Sat by Pulse 95 90 87 Oximetry 06/23/21 06/23/21 06/23/21 05:00 05:15 05:30 Pulse Rate 98 H 92 H 89 Respiratory 13 14 15 Rate Blood Pressure 122/53 122/53 128/43 O2 Sat by Pulse Oximetry 06/23/21 06/23/21 06/23/21 05:45 06:00 06:15 Pulse Rate 99 H 91 H 90 Respiratory 16 16 15 Rate Blood Pressure 128/43 114/46 114/46 O2 Sat by Pulse Oximetry 06/23/21 06/23/21 06/23/21 06:30 06:45 07:00 Pulse Rate 100 H 94 H 102 H Respiratory 18 15 18 Rate Blood Pressure 109/53 109/53 111/54 O2 Sat by Pulse Oximetry 06/23/21 06/23/21 07:15 07:31 Pulse Rate 104 H Respiratory 19 18 Rate Blood Pressure 111/54 99/54 O2 Sat by Pulse Oximetry - Lab 06/23/21 05:29 06/23/21 17:43 Most recent lab results Calcium 8.4 mg/dL (8.4-10.2) 06/23/21 05:29 Magnesium 1.50 mg/dL (1.7-2.3) L 06/23/21 05:29 Urine Sodium 25 mmol/L 06/22/21 11:47 Medications & Allergies - Medications Allergies/Adverse Reactions: Allergies No Known Allergies Allergy (Unverified 06/22/21 07:44) Home Medications: Home Medications Medication Instructions Recorded Confirmed Last Taken Type Atenolol/Chlorthalidone [Tenoretic 1 tab PO DAILY 06/22/21 06/22/21 Unknown History 50-25] Clopidogrel [Plavix] 75 mg PO DAILY 06/22/21 06/22/21 Unknown History Glimepiride [Amaryl] 2 mg PO QAM 06/22/21 06/22/21 Unknown History Pioglitazone [Actos] 15 mg PO DAILY 06/22/21 06/22/21 Unknown History Pravastatin [Pravachol] 40 mg PO QHS 06/22/21 06/22/21 Unknown History lisinopriL [Zestril TAB] 5 mg PO DAILY 06/22/21 06/22/21 Unknown History Active Medications: Generic Name Dose Route Start Last Admin Trade Name Freq PRN Reason Stop Dose Admin Acetaminophen 650 mg 06/22/21 22:21 Acetaminophen 325 Mg Tab PO Q4H PRN Pain MILD(1-3)/Fever >100.5/NAVA Clopidogrel Bisulfate 75 mg 06/23/21 10:00 Clopidogrel 75 Mg Tab PO DAILY [facility] Famotidine 20 mg 06/22/21 23:00 06/23/21 01:56 Famotidine 20 Mg/2 Ml Inj IV 20 mg BID JUDY Administration Heparin Sodium (Porcine) 5,000 unit 06/22/21 22:30 06/23/21 01:57 Heparin 5,000 Unit/1 Ml Vial SUB-Q 5,000 unit Q12HR JUDY Administration Sodium Chloride 1,000 mls @ 75 mls/hr 06/22/21 13:30 06/22/21 16:10 Nacl 0.9% 1000 Ml IV 75 mls/hr DIRECT JUDY Administration Potassium Chloride 10 meq in 100 mls @ 100 mls/hr 06/23/21 08:00 Kcl 10meq/100ml IV 06/23/21 11:59 Q1H JUDY Magnesium Sulfate 2 gm in 50 mls @ 25 mls/hr 06/23/21 08:00 Magnesium Sulfate 2gm/50ml IV 06/23/21 11:00 ONCE@0800 JUDY Azithromycin 500 mg in 250 mls @ 250 mls/hr 06/23/21 08:00 Zithromax/Ns IV Q24H JUDY Ceftriaxone Sodium 2 gm in 100 mls @ 200 mls/hr 06/23/21 10:00 Rocephin/Ns 2 Gm/100 Ml IV Q24HR [facility] Protocol Insulin Human Lispro 0 unit 06/22/21 23:00 06/23/21 07:22 Insulin Lispro 100 Unit/Ml SUB-Q Not Given Q4HR [facility] Protocol Lisinopril 5 mg 06/23/21 10:00 Lisinopril 5 Mg Tab PO DAILY [facility] Metoclopramide HCl 10 mg 06/22/21 22:21 Metoclopramide 10 Mg/2 Ml Inj IV Q6H PRN Nausea And Vomiting Ondansetron HCl 4 mg 06/22/21 22:21 Ondansetron 4 Mg/2 Ml Inj IV Q8H PRN Nausea And Vomiting Oxycodone/Acetaminophen 1 tab 06/22/21 22:21 Oxycodone /Acetaminophen 5-325mg Tab PO Q6H PRN Pain, Moderate (4-6) Potassium Chloride 40 meq 06/23/21 08:00 Potassium Chloride Er 20 Meq Tab PO 06/23/21 16:01 Q4H JUDY Pravastatin Sodium 40 mg 06/23/21 22:00 Pravastatin 40 Mg Tab PO QHS JUDY Sodium Chloride 10 ml 06/23/21 10:00 Sodium Chloride 0.9% 10 Ml Flush Syringe IV BID JUDY Sodium Chloride 10 ml 06/22/21 22:21 Sodium Chloride 0.9% 10 Ml Flush Syringe IV PRN PRN LINE FLUSH
[2021-06-23] MEDS ORDERED: POTASSIUM CHLORIDE 10 MEQ 10 MEQ/100 ML BAG IV SCH (09:00)
[2021-06-23] MEDS ORDERED: SODIUM CHLORIDE 3% 120 ML IV ONE (09:00)
--- NOTE | 2021-06-23 09:51 | Consultation ---
History of Present Illness - Reason for Consult Consult date: 06/23/21 Hyponatremia, symptomatic - History of Present Illness 65 y/o female admitted with AMS and seizure, found to be hyponatremic. Past History Past Medical History: diabetes, hypertension Past Surgical History: No surgical history Social history: other Family history: other (Unable to obtain due to patient's mental status) Medications and Allergies Allergies Allergy/AdvReac Type Severity Reaction Status Date / Time No Known Allergies Allergy Unverified 06/22/21 07:44 Home Medications Medication Instructions Recorded Confirmed Last Taken Type Atenolol/Chlorthalidone [Tenoretic 1 tab PO DAILY 06/22/21 06/22/21 Unknown History 50-25] Clopidogrel [Plavix] 75 mg PO DAILY 06/22/21 06/22/21 Unknown History Glimepiride [Amaryl] 2 mg PO QAM 06/22/21 06/22/21 Unknown History Pioglitazone [Actos] 15 mg PO DAILY 06/22/21 06/22/21 Unknown History Pravastatin [Pravachol] 40 mg PO QHS 06/22/21 06/22/21 Unknown History lisinopriL [Zestril TAB] 5 mg PO DAILY 06/22/21 06/22/21 Unknown History Active Meds: Active Medications Acetaminophen (Acetaminophen 325 Mg Tab) 650 mg PO Q4H PRN PRN Reason: Pain MILD(1-3)/Fever >100.5/NAVA Clopidogrel Bisulfate (Clopidogrel 75 Mg Tab) 75 mg PO DAILY [facility] Famotidine (Famotidine 20 Mg/2 Ml Inj) 20 mg IV BID [facility] Last Admin: 06/23/21 01:56 Dose: 20 mg Documented by: Heparin Sodium (Porcine) (Heparin 5,000 Unit/1 Ml Vial) 5,000 unit SUB-Q Q12HR [facility] Last Admin: 06/23/21 01:57 Dose: 5,000 unit Documented by: Potassium Chloride (Kcl 10meq/100ml) 10 meq in 100 mls @ 100 mls/hr IV Q1H [facility] Stop: 06/23/21 11:59 Magnesium Sulfate (Magnesium Sulfate 2gm/50ml) 2 gm in 50 mls @ 25 mls/hr IV ONCE@0800 [facility] Stop: 06/23/21 11:00 Last Admin: 06/23/21 09:10 Dose: 25 mls/hr Documented by: Azithromycin (Zithromax/Ns) 500 mg in 250 mls @ 250 mls/hr IV Q24H [facility] Ceftriaxone Sodium (Rocephin/Ns 2 Gm/100 Ml) 2 gm in 100 mls @ 200 mls/hr IV Q24HR [facility]; Protocol Miscellaneous Information 1 ml (/ Sodium Chloride) 121 mls @ 30.25 mls/hr IV DIRECT ONE Stop: 06/23/21 13:59 Insulin Human Lispro (Insulin Lispro 100 Unit/Ml) 0 unit SUB-Q Q4HR [facility]; Protocol Last Admin: 06/23/21 07:22 Dose: Not Given Documented by: Lisinopril (Lisinopril 5 Mg Tab) 5 mg PO DAILY [facility] Metoclopramide HCl (Metoclopramide 10 Mg/2 Ml Inj) 10 mg IV Q6H PRN PRN Reason: Nausea And Vomiting Ondansetron HCl (Ondansetron 4 Mg/2 Ml Inj) 4 mg IV Q8H PRN PRN Reason: Nausea And Vomiting Oxycodone/Acetaminophen (Oxycodone /Acetaminophen 5-325mg Tab) 1 tab PO Q6H PRN PRN Reason: Pain, Moderate (4-6) Potassium Chloride (Potassium Chloride Er 20 Meq Tab) 40 meq PO Q4H [facility] Stop: 06/23/21 16:01 Pravastatin Sodium (Pravastatin 40 Mg Tab) 40 mg PO QHS [facility] Sodium Chloride (Sodium Chloride 0.9% 10 Ml Flush Syringe) 10 ml IV BID [facility] Sodium Chloride (Sodium Chloride 0.9% 10 Ml Flush Syringe) 10 ml IV PRN PRN PRN Reason: LINE FLUSH Exam - Constitutional Vitals: Temp Pulse Resp BP Pulse Ox 98.6 F 104 H 18 99/54 87 06/22/21 08:23 06/23/21 07:15 06/23/21 07:31 06/23/21 07:31 06/23/21 04:45 General appearance: Present: no acute distress, well-nourished - EENT Eyes: Present: PERRL, EOM intact ENT: hearing intact - Neck Neck: Present: supple, normal ROM Results - Labs CBC & Chem 7: 06/24/21 05:33 06/24/21 05:33 Labs: Abnormal lab results 06/22/21 06/22/21 06/22/21 Range/Units 08:56 11:47 14:20 WBC (4.5-11.0) K/mm3 Lymph % (Auto) (13.4-35.0) % Lymph # (Auto) (1.2-5.4) K/mm3 [place] # (Auto) (0.0-0.8) K/mm3 Seg Neutrophils % (40.0-70.0) % Seg Neutrophils # (1.8-7.7) K/mm3 Sodium 104 L* 112 L* D (137-145) mmol/L Potassium 3.2 L 2.7 L* (3.6-5.0) mmol/L Chloride 60.0 L 65.2 L (98-107) mmol/L Carbon Dioxide 32 H (22-30) mmol/L Creatinine 0.4 L 0.4 L (0.6-1.2) mg/dL Glucose 181 H 119 H (65-100) mg/dL Hemoglobin A1c (4-6) % Uric Acid (3.5-7.6) mg/dL Magnesium (1.7-2.3) mg/dL Urine WBC (Auto) 11.0 H (0.0-6.0) /HPF 06/22/21 06/23/21 06/23/21 Range/Units 18:19 05:29 05:29 WBC 12.4 H (4.5-11.0) K/mm3 Lymph % (Auto) 5.8 L (13.4-35.0) % Lymph # (Auto) 0.7 L (1.2-5.4) K/mm3 [place] # (Auto) 0.9 H (0.0-0.8) K/mm3 Seg Neutrophils % 87.1 H (40.0-70.0) % Seg Neutrophils # 10.8 H (1.8-7.7) K/mm3 Sodium 112 L* 112 L* (137-145) mmol/L Potassium 2.7 L* 2.6 L* (3.6-5.0) mmol/L Chloride 65.8 L 67.5 L (98-107) mmol/L Carbon Dioxide 31 H 33 H (22-30) mmol/L Creatinine 0.3 L 0.4 L (0.6-1.2) mg/dL Glucose (65-100) mg/dL Hemoglobin A1c (4-6) % Uric Acid 3.2 L (3.5-7.6) mg/dL Magnesium (1.7-2.3) mg/dL Urine WBC (Auto) (0.0-6.0) /HPF 06/23/21 06/23/21 Range/Units 05:29 05:29 WBC (4.5-11.0) K/mm3 Lymph % (Auto) (13.4-35.0) % Lymph # (Auto) (1.2-5.4) K/mm3 [place] # (Auto) (0.0-0.8) K/mm3 Seg Neutrophils % (40.0-70.0) % Seg Neutrophils # (1.8-7.7) K/mm3 Sodium (137-145) mmol/L Potassium (3.6-5.0) mmol/L Chloride (98-107) mmol/L Carbon Dioxide (22-30) mmol/L Creatinine (0.6-1.2) mg/dL Glucose (65-100) mg/dL Hemoglobin A1c 6.6 H (4-6) % Uric Acid (3.5-7.6) mg/dL Magnesium 1.50 L (1.7-2.3) mg/dL Urine WBC (Auto) (0.0-6.0) /HPF - Imaging and Cardiology Chest x-ray: image reviewed Assessment and Plan 65 y/o female with symptomatic hyponatremia of unknown etiology 1. Follow up renal recs 2. Yesterday placed patient on normal saline but now that 3% is being given will discontinue 3. q6 hour Chemistries given low chloride as well 4. Frequent neuro checks given rising na 5. Guarded prognosis. CCT 31minutes.
[2021-06-23] MEDS ORDERED: SODIUM CHLORIDE 3% IV ONE (10:00)
[2021-06-23] MEDS: POTASSIUM CHLORIDE ER 20 MEQ TAB PO SCH ×2 (11:28→12:21)
[2021-06-23] MEDS: cefTRIAXone/NS 2 GM/100 ML 2 GM/100 ML BAG IV SCH (11:28)
[2021-06-23] MEDS: LISINOPRIL 5 MG TAB PO SCH (11:28)
[2021-06-23] MEDS: CLOPIDOGREL 75 MG TAB PO SCH (11:28)
[2021-06-23] MEDS: AZITHROMYCIN/NS 500 MG/250 ML 500 MG/250 ML BAG IV SCH (11:57)
[2021-06-23] MEDS: ACETAMINOPHEN 325 MG TAB PO PRN (12:13)
[2021-06-23 12:50] LABS: Blood Urea Nitrogen 10 mg/dL (7-17); Calcium 8.6 mg/dL (8.4-10.2); Hemolysis Index 4
[2021-06-23 12:51] LABS: BUN/Creatinine Ratio 25
[2021-06-23] MEDS: POTASSIUM CHLORIDE 20 MEQ PACKET PO SCH ×2 (14:30→17:39)
[2021-06-23 18:40] LABS: Blood Urea Nitrogen 10 mg/dL (7-17); Calcium 8.6 mg/dL (8.4-10.2); Hemolysis Index 160
[2021-06-23 18:47] LABS: BUN/Creatinine Ratio 33
--- NOTE | 2021-06-23 19:37 | Progress Note ---
Assessment and Plan Critical care statement The high probability OF a clinically significant sudden or life-threatening deterioration of the cardiorespiratory system and endocrine system required my full and direct attention, intervention and postoperative management. The aggregate critical care time was 40 minutes. The time is in addition to time spent performing reported procedures but includes the followin: Data review and interpretation 2: Patient assessment and monitoring of vital signs 3: Documentation 4:: Medication orders and management - Patient Problems (1) Acute metabolic encephalopathy Current Visit: Yes Status: Acute Plan to address problem: Secondary to severe hyponatremia Hyponatremia to be corrected Urine osmolarity and serum osmolarity Nephrology consult requested (2) Acute hyponatremia Current Visit: Yes Status: Acute Plan to address problem: Normal saline Recheck sodium level Chlorthalidone induced hyponatremia (3) Hypokalemia Current Visit: Yes Status: Acute Plan to address problem: Supplemented aggressively (4) Community acquired pneumonia Current Visit: Yes Status: Acute Plan to address problem: IV Rocephin and Zithromax for now (5) Essential (primary) hypertension Current Visit: Yes Status: Acute Plan to address problem: Chlorthalidone held Continue antihypertensives without diuretics (6) Type 2 diabetes mellitus without complications Current Visit: Yes Status: Chronic Plan to address problem: Coverage for now Check hemoglobin A1c (7) Hypomagnesemia Current Visit: Yes Status: Acute Plan to address problem: Supplemented (8) UTI (urinary tract infection) Current Visit: Yes Status: Acute Qualifiers: Urinary tract infection type: acute cystitis Plan to address problem: Patient is on Rocephin for the pneumonia Urine cultures pending (9) DVT prophylaxis Current Visit: Yes Status: Acute Plan to address problem: On heparin GI prophylaxis Subjective Date of service: 06/23/21 Principal diagnosis: Acute encephalopathy, hyponatremia Interval history: 55-year-old female with hypertension: HPI: This is a 65-year-old female with history of hypertension tobacco and diabetes mellitus sent in for severe weakness and altered mental status. Patient has not been feeling well for the last 4 days. Patient requires assistance walking around and with other ADLs. No fever. 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 Patient is on diuretics--chlorthalidone. 06/23/2021 Patient symptomatically better Sodium is 117 Objective - Constitutional Vitals: Vital Signs - 12hr 06/23/21 06/23/21 06/23/21 07:45 08:00 08:15 Pulse Rate 104 H 104 H 98 H Respiratory 15 17 16 Rate Blood Pressure 99/54 115/76 115/76 O2 Sat by Pulse Oximetry 06/23/21 06/23/21 06/23/21 08:30 08:45 09:00 Pulse Rate 102 H 94 H Respiratory 22 20 16 Rate Blood Pressure 115/71 115/71 117/49 O2 Sat by Pulse 85 86 Oximetry 06/23/21 06/23/21 06/23/21 09:15 09:30 09:45 Pulse Rate 99 H 104 H 115 H Respiratory 16 16 14 Rate Blood Pressure 117/49 125/49 125/49 O2 Sat by Pulse 91 86 Oximetry 06/23/21 06/23/21 06/23/21 10:00 10:15 10:31 Pulse Rate 91 H 102 H 120 H Respiratory 16 16 18 Rate Blood Pressure 132/47 132/47 140/56 O2 Sat by Pulse Oximetry 06/23/21 06/23/21 06/23/21 10:45 11:00 11:15 Pulse Rate 99 H 77 89 Respiratory 22 29 H 19 Rate Blood Pressure 140/56 141/59 141/59 O2 Sat by Pulse 91 92 93 Oximetry 06/23/21 06/23/21 06/23/21 11:28 11:31 11:45 Pulse Rate 92 H 98 H 102 H Respiratory 22 20 Rate Blood Pressure 141/59 153/67 153/67 O2 Sat by Pulse 93 93 Oximetry 06/23/21 06/23/21 06/23/21 12:00 12:15 12:30 Pulse Rate 96 H 97 H 102 H Respiratory 18 25 H 19 Rate Blood Pressure 139/57 139/57 163/71 O2 Sat by Pulse 95 95 94 Oximetry 06/23/21 06/23/21 06/23/21 12:45 13:01 13:15 Pulse Rate 90 93 H 94 H Respiratory 17 17 18 Rate Blood Pressure 163/71 145/63 145/63 O2 Sat by Pulse 94 91 94 Oximetry 06/23/21 06/23/21 06/23/21 13:30 13:45 14:00 Pulse Rate 99 H 98 H Respiratory 18 20 Rate Blood Pressure 157/66 157/66 142/68 O2 Sat by Pulse 95 91 96 Oximetry 06/23/21 06/23/21 06/23/21 14:15 14:30 14:45 Pulse Rate 93 H Respiratory 16 17 Rate Blood Pressure 142/68 136/54 136/54 O2 Sat by Pulse 98 96 94 Oximetry 06/23/21 06/23/21 06/23/21 15:00 15:15 15:30 Pulse Rate 94 H 110 H 96 H Respiratory 16 25 H 16 Rate Blood Pressure 125/90 125/90 132/49 O2 Sat by Pulse 95 96 Oximetry 06/23/21 06/23/21 06/23/21 15:45 16:00 16:15 Pulse Rate 104 H 103 H 107 H Respiratory 20 18 17 Rate Blood Pressure 132/49 142/46 142/46 O2 Sat by Pulse 96 98 97 Oximetry 06/23/21 06/23/21 06/23/21 16:30 16:45 17:00 Pulse Rate 109 H 101 H 85 Respiratory 23 23 14 Rate Blood Pressure 141/82 141/82 131/54 O2 Sat by Pulse 95 97 98 Oximetry General appearance: Present: no acute distress, well-nourished - EENT Eyes: PERRL, EOM intact ENT: hearing intact, clear oral mucosa Ears: bilateral: normal - Neck Neck: supple, normal ROM - Respiratory Respiratory effort: normal Respiratory: bilateral: CTA - Breasts Breasts: normal - Cardiovascular Heart rate: 88 Rhythm: regular Heart Sounds: Present: S1 & S2. Absent: gallop, rub Extremities: pulses intact, No edema, normal color, Full ROM - Gastrointestinal General gastrointestinal: Present: soft, non-tender, non-distended, normal bowel sounds - Genitourinary Female genitourinary: normal - Integumentary Integumentary: clear, warm, dry - Musculoskeletal Musculoskeletal: generalized weakness - Neurologic Neurologic: moves all extremities - Psychiatric Psychiatric: memory intact, appropriate mood/affect, intact judgment & insight - Allied health notes Allied health notes reviewed: nursing, case management - Labs CBC & Chem 7: 06/23/21 05:29 06/23/21 17:43 Labs: Abnormal lab results 06/23/21 06/23/21 06/23/21 Range/Units 05:29 05:29 05:29 WBC 12.4 H (4.5-11.0) K/mm3 Lymph % (Auto) 5.8 L (13.4-35.0) % Lymph # (Auto) 0.7 L (1.2-5.4) K/mm3 [place] # (Auto) 0.9 H (0.0-0.8) K/mm3 Seg Neutrophils % 87.1 H (40.0-70.0) % Seg Neutrophils # 10.8 H (1.8-7.7) K/mm3 Sodium 112 L* (137-145) mmol/L Potassium 2.6 L* (3.6-5.0) mmol/L Chloride 67.5 L (98-107) mmol/L Carbon Dioxide 33 H (22-30) mmol/L Creatinine 0.4 L (0.6-1.2) mg/dL Glucose (65-100) mg/dL Hemoglobin A1c 6.6 H (4-6) % Uric Acid 3.2 L (3.5-7.6) mg/dL Magnesium (1.7-2.3) mg/dL 06/23/21 06/23/21 06/23/21 Range/Units 05:29 12:11 17:43 WBC (4.5-11.0) K/mm3 Lymph % (Auto) (13.4-35.0) % Lymph # (Auto) (1.2-5.4) K/mm3 [place] # (Auto) (0.0-0.8) K/mm3 Seg Neutrophils % (40.0-70.0) % Seg Neutrophils # (1.8-7.7) K/mm3 Sodium 113 L* 117 L* (137-145) mmol/L Potassium 2.6 L* (3.6-5.0) mmol/L Chloride 69.7 L 74.9 L (98-107) mmol/L Carbon Dioxide (22-30) mmol/L Creatinine 0.4 L 0.3 L (0.6-1.2) mg/dL Glucose 106 H 125 H (65-100) mg/dL Hemoglobin A1c (4-6) % Uric Acid (3.5-7.6) mg/dL Magnesium 1.50 L (1.7-2.3) mg/dL HEART Score - HEART Score Troponin: Troponin T < 0.010 ng/mL (0.00-0.029) 06/22/21 07:58
[2021-06-24] MEDS ORDERED: SODIUM CHLORIDE 0.9% 1000 ML 1,000 ML ONE (01:00)
[2021-06-24] MEDS: HEPARIN 5,000 UNIT/1 ML VIAL SUB-Q SCH ×2 (01:09→10:15)
[2021-06-24] MEDS: INSULIN LISPRO 100 UNIT/ML SUB-Q SCH ×7 (01:10→23:50)
[2021-06-24] MEDS: PRAVASTATIN 40 MG TAB PO SCH ×2 (01:10→23:46)
[2021-06-24] MEDS: FAMOTIDINE 20 MG/2 ML INJ IV SCH ×3 (01:10→23:46)
[2021-06-24] MEDS: POTASSIUM CHLORIDE 20 MEQ PACKET PO SCH (01:10)
[2021-06-24 01:13] LABS: BUN/Creatinine Ratio 20; Blood Urea Nitrogen 8 mg/dL (7-17); Calcium 8.6 mg/dL (8.4-10.2); Hemolysis Index 3
[2021-06-24] MEDS ORDERED: LORazepam 2 MG/ML VIAL IV ONE (02:24)
[2021-06-24] MEDS ORDERED: LORazepam 2 MG/ML VIAL ONE (02:26)
[2021-06-24 05:58] LABS: Hematocrit 41.1 % (30.3-42.9); Hemoglobin 13.1 gm/dl (10.1-14.3); Mean Corpuscular HGB Conc 32 % (30-34); Mean Corpuscular Volume 91 fl (79-97); Platelet Count 327 K/mm3 (140-440); Red Blood Count 4.54 M/mm3 (3.65-5.03); Red Cell Distribution Width 13.6 % (13.2-15.2)
[2021-06-24 06:28] LABS: Blood Urea Nitrogen 7 mg/dL (7-17); Calcium 8.9 mg/dL (8.4-10.2); Hemolysis Index 9
[2021-06-24 06:29] LABS: BUN/Creatinine Ratio 23
[2021-06-24 07:11] LABS: Total Cells Counted 100
[2021-06-24 07:13] LABS: Platelet Estimate Consistent w Auto; Rouleaux Few
[2021-06-24 07:15] LABS: Poikilocytosis 1+
[2021-06-24 07:16] LABS: Anisocytosis 1+
[2021-06-24] MEDS: LISINOPRIL 5 MG TAB PO SCH (10:15)
[2021-06-24] MEDS: cefTRIAXone/NS 2 GM/100 ML 2 GM/100 ML BAG IV SCH (10:15)
[2021-06-24] MEDS: CLOPIDOGREL 75 MG TAB PO SCH (10:15)
[2021-06-24] MEDS: AZITHROMYCIN/NS 500 MG/250 ML 500 MG/250 ML BAG IV SCH (10:45)
--- NOTE | 2021-06-24 10:58 | Electrocardiograph Report ---
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
--- NOTE | 2021-06-24 12:21 | Progress Note ---
Assessment and Plan - Patient Problems (1) Acute hyponatremia Current Visit: Yes Status: Acute Plan to address problem: Hyponatremia of multifactorial etiology secondary to thiazide diuretic and possible tea and toast diet. Also concerned about SIADH given her smoking history and abnormal chest x-ray. Urine osmolality is high and so Tea and toast diet unlikely to be because. Sodium improved from 104-112 mmol/L and was stable there yesterday and so patient was given 3% saline. Sodium has improved to 122 mmol/L. Will recheck sodium this afternoon. If continues to improve, will observe. If however her not improving, will give a dose of [place]. Follow-up sodium closely. (2) Acute metabolic encephalopathy Current Visit: Yes Status: Acute Plan to address problem: Improving. Continue neuro monitoring. (3) Hypokalemia Current Visit: Yes Status: Acute Plan to address problem: Due to moderate dose thiazide diuretic and also probably poor oral intake. Thiazide diuretic has been stopped. Potassium has improved with aggressive supplementation. Follow-up level (4) Community acquired pneumonia Current Visit: Yes Status: Acute Plan to address problem: Empiric antibiotics. Follow-up SARS coronavirus 2 PCR. Follow-up imaging of the chest (5) Essential (primary) hypertension Current Visit: Yes Status: Acute Plan to address problem: Follow-up blood pressure off of thiazide diuretic. We will start spironolactone if needed. (6) Type 2 diabetes mellitus without complications Current Visit: Yes Status: Chronic Plan to address problem: Blood sugar management by primary attending Subjective Date of service: 06/24/21 Principal diagnosis: Hyponatremia Interval history: Patient seen lying in bed in the ER. She is more coherent today. She denies any complaints. No pain, nausea vomiting. No chest pain or shortness of breath. Objective - Exam Narrative Exam: Middle-aged female lying in bed in no acute distress HEENT: NCAT, pink conjunctiva Neck: Supple, no venous distention CVS: S1S2 RRR with no murmur, rub or gallop Chest: Clear to auscultation Abdomen: Protuberant, soft, nontender, no organomegaly, bowel sounds are present Extremities: No edema Neuro: Awake, oriented to person and to the hospital - Vital Signs Vital signs: Vital Signs - 12hr 06/24/21 06/24/21 06/24/21 01:00 02:00 06:15 Pulse Rate 114 H 115 H 110 H Respiratory 16 18 19 Rate Blood Pressure 149/63 151/99 Blood Pressure 101/43 [Right] O2 Sat by Pulse 96 96 96 Oximetry 06/24/21 06/24/21 06/24/21 06:55 07:00 07:05 Pulse Rate 107 H 104 H 106 H Respiratory 17 17 16 Rate Blood Pressure 101/43 101/43 68/31 Blood Pressure [Right] O2 Sat by Pulse Oximetry 06/24/21 06/24/21 06/24/21 07:10 07:15 07:20 Pulse Rate 110 H 108 H 107 H Respiratory 15 16 17 Rate Blood Pressure 68/31 68/31 68/31 Blood Pressure [Right] O2 Sat by Pulse Oximetry 06/24/21 06/24/21 06/24/21 07:25 07:30 07:36 Pulse Rate 103 H 103 H 105 H Respiratory 20 21 18 Rate Blood Pressure 68/31 68/31 80/34 Blood Pressure [Right] O2 Sat by Pulse Oximetry 06/24/21 06/24/21 06/24/21 07:40 07:46 07:50 Pulse Rate 101 H 104 H 107 H Respiratory 15 18 18 Rate Blood Pressure 80/34 59/31 59/31 Blood Pressure [Right] O2 Sat by Pulse Oximetry 06/24/21 06/24/21 06/24/21 07:56 08:00 08:06 Pulse Rate 101 H 101 H 109 H Respiratory 16 16 15 Rate Blood Pressure 59/31 59/31 75/39 Blood Pressure [Right] O2 Sat by Pulse Oximetry 06/24/21 06/24/21 06/24/21 08:10 08:16 08:20 Pulse Rate 108 H 101 H 101 H Respiratory 16 16 17 Rate Blood Pressure 75/39 75/39 75/39 Blood Pressure [Right] O2 Sat by Pulse Oximetry 06/24/21 06/24/21 06/24/21 08:26 08:30 08:36 Pulse Rate 107 H 106 H 100 H Respiratory 16 16 53 H Rate Blood Pressure 75/39 75/39 82/39 Blood Pressure [Right] O2 Sat by Pulse Oximetry 06/24/21 06/24/21 06/24/21 08:40 08:45 08:50 Pulse Rate 108 H 112 H 109 H Respiratory 29 H 31 H 19 Rate Blood Pressure 82/39 82/39 Blood Pressure [Right] O2 Sat by Pulse Oximetry 06/24/21 06/24/21 06/24/21 08:56 09:00 09:06 Pulse Rate 113 H 123 H 104 H Respiratory 29 H 19 16 Rate Blood Pressure 82/39 82/39 135/56 Blood Pressure [Right] O2 Sat by Pulse Oximetry 06/24/21 06/24/21 06/24/21 09:10 09:16 09:20 Pulse Rate 110 H 112 H 105 H Respiratory 27 H 37 H 16 Rate Blood Pressure 135/56 135/56 135/56 Blood Pressure [Right] O2 Sat by Pulse Oximetry 06/24/21 06/24/21 06/24/21 09:26 09:30 09:36 Pulse Rate 89 94 H Respiratory 19 46 H 33 H Rate Blood Pressure 135/56 135/56 100/44 Blood Pressure [Right] O2 Sat by Pulse Oximetry 06/24/21 06/24/21 06/24/21 09:40 09:46 09:50 Pulse Rate 117 H 115 H 107 H Respiratory 19 18 17 Rate Blood Pressure 100/44 100/44 100/44 Blood Pressure [Right] O2 Sat by Pulse Oximetry 06/24/21 06/24/21 06/24/21 09:56 10:00 10:06 Pulse Rate 128 H 126 H 128 H Respiratory 22 22 20 Rate Blood Pressure 100/44 100/44 135/57 Blood Pressure [Right] O2 Sat by Pulse Oximetry 06/24/21 06/24/21 06/24/21 10:10 10:16 10:20 Pulse Rate 126 H 122 H 112 H Respiratory 20 20 16 Rate Blood Pressure 135/57 135/57 135/57 Blood Pressure [Right] O2 Sat by Pulse Oximetry 06/24/21 06/24/21 06/24/21 10:26 10:30 10:36 Pulse Rate 129 H 124 H 112 H Respiratory 22 17 19 Rate Blood Pressure 135/57 135/57 107/44 Blood Pressure [Right] O2 Sat by Pulse Oximetry 06/24/21 06/24/21 06/24/21 10:40 10:46 10:50 Pulse Rate 122 H 132 H 122 H Respiratory 20 21 19 Rate Blood Pressure 107/44 107/44 107/44 Blood Pressure [Right] O2 Sat by Pulse Oximetry 06/24/21 06/24/21 10:56 11:00 Pulse Rate 119 H 107 H Respiratory 20 17 Rate Blood Pressure 107/44 107/44 Blood Pressure [Right] O2 Sat by Pulse Oximetry - Lab 06/24/21 05:33 06/24/21 05:33 Most recent lab results Calcium 8.9 mg/dL (8.4-10.2) 06/24/21 05:33 Magnesium 1.50 mg/dL (1.7-2.3) L 06/23/21 05:29 Urine Sodium 25 mmol/L 06/22/21 11:47 Medications & Allergies - Medications Allergies/Adverse Reactions: Allergies No Known Allergies Allergy (Unverified 06/22/21 07:44) Home Medications: Home Medications Medication Instructions Recorded Confirmed Last Taken Type Atenolol/Chlorthalidone [Tenoretic 1 tab PO DAILY 06/22/21 06/22/21 Unknown History 50-25] Clopidogrel [Plavix] 75 mg PO DAILY 06/22/21 06/22/21 Unknown History Glimepiride [Amaryl] 2 mg PO QAM 06/22/21 06/22/21 Unknown History Pioglitazone [Actos] 15 mg PO DAILY 06/22/21 06/22/21 Unknown History Pravastatin [Pravachol] 40 mg PO QHS 06/22/21 06/22/21 Unknown History lisinopriL [Zestril TAB] 5 mg PO DAILY 06/22/21 06/22/21 Unknown History Active Medications: Generic Name Dose Route Start Last Admin Trade Name Freq PRN Reason Stop Dose Admin Acetaminophen 650 mg 06/22/21 22:21 06/23/21 12:13 Acetaminophen 325 Mg Tab PO 650 mg Q4H PRN Administration Pain MILD(1-3)/Fever >100.5/NAVA Clopidogrel Bisulfate 75 mg 06/23/21 10:00 06/24/21 10:15 Clopidogrel 75 Mg Tab PO 75 mg DAILY JUDY Administration Famotidine 20 mg 06/22/21 23:00 06/24/21 10:15 Famotidine 20 Mg/2 Ml Inj IV 20 mg BID JUDY Administration Heparin Sodium (Porcine) 5,000 unit 06/22/21 22:30 06/24/21 10:15 Heparin 5,000 Unit/1 Ml Vial SUB-Q 5,000 unit Q12HR JUDY Administration Azithromycin 500 mg in 250 mls @ 250 mls/hr 06/23/21 10:00 06/24/21 10:45 Zithromax/Ns IV 250 mls/hr Q24H JUDY Administration Ceftriaxone Sodium 2 gm in 100 mls @ 200 mls/hr 06/23/21 10:00 06/24/21 10:15 Rocephin/Ns 2 Gm/100 Ml IV 200 mls/hr Q24HR JUDY Administration Protocol Insulin Human Lispro 0 unit 06/22/21 23:00 06/24/21 10:05 Insulin Lispro 100 Unit/Ml SUB-Q Not Given Q4HR [facility] Protocol Lisinopril 5 mg 06/23/21 10:00 06/24/21 10:15 Lisinopril 5 Mg Tab PO 5 mg DAILY JUDY Administration Metoclopramide HCl 10 mg 06/22/21 22:21 Metoclopramide 10 Mg/2 Ml Inj IV Q6H PRN Nausea And Vomiting Ondansetron HCl 4 mg 06/22/21 22:21 Ondansetron 4 Mg/2 Ml Inj IV Q8H PRN Nausea And Vomiting Oxycodone/Acetaminophen 1 tab 06/22/21 22:21 Oxycodone /Acetaminophen 5-325mg Tab PO Q6H PRN Pain, Moderate (4-6) Pravastatin Sodium 40 mg 06/23/21 22:00 06/24/21 01:10 Pravastatin 40 Mg Tab PO 40 mg QHS JUDY Administration Sodium Chloride 10 ml 06/23/21 10:00 06/24/21 10:15 Sodium Chloride 0.9% 10 Ml Flush Syringe IV 10 ml BID JUDY Administration Sodium Chloride 10 ml 06/22/21 22:21 Sodium Chloride 0.9% 10 Ml Flush Syringe IV PRN PRN LINE FLUSH
--- NOTE | 2021-06-24 12:25 | XRay Report ---
XR chest 1V ap INDICATION / CLINICAL INFORMATION: dyspnea. COMPARISON: 06/22/2021 FINDINGS: SUPPORT DEVICES: None. HEART /PULMONARY VASCULATURE: No significant abnormality. LUNGS / PLEURA: Worsening bibasilar airspace consolidation, greatest in the right lung base. Trace ri ght pleural effusion may be present. No pneumothorax. IMPRESSION: Worsening bibasilar airspace disease. Signer Name: Robert Hernandez MD Signed: 06/24/2021 12:21 PM Workstation Name: [facility]
--- NOTE | 2021-06-24 13:41 | Progress Note ---
Assessment and Plan 65 y/o female with symptomatic hyponatremia of unknown etiology 06/24/21: GIven Na greater than 120 and symptoms continue to improve, no objection to down grade to floor status. Suggest either tele floor or remote tele. Follow up renal recs. 1. Follow up renal recs 2. Yesterday placed patient on normal saline but now that 3% is being given will discontinue 3. q6 hour Chemistries given low chloride as well 4. Frequent neuro checks given rising na 5. Guarded prognosis. CCT 31minutes. Subjective Date of service: 06/24/21 Principal diagnosis: Hyponatremia Interval history: Na greater than 120 now. Mental state slightly improved. Does not appear to be as agitated as documented from the previous night. Objective - Constitutional Vitals: Vital Signs - 12hr 06/24/21 06/24/21 06/24/21 02:00 06:15 06:55 Pulse Rate 115 H 110 H 107 H Respiratory 18 19 17 Rate Blood Pressure 151/99 101/43 Blood Pressure 101/43 [Right] O2 Sat by Pulse 96 96 Oximetry 06/24/21 06/24/21 06/24/21 07:00 07:05 07:10 Pulse Rate 104 H 106 H 110 H Respiratory 17 16 15 Rate Blood Pressure 101/43 68/31 68/31 Blood Pressure [Right] O2 Sat by Pulse Oximetry 06/24/21 06/24/21 06/24/21 07:15 07:20 07:25 Pulse Rate 108 H 107 H 103 H Respiratory 16 17 20 Rate Blood Pressure 68/31 68/31 68/31 Blood Pressure [Right] O2 Sat by Pulse Oximetry 06/24/21 06/24/21 06/24/21 07:30 07:36 07:40 Pulse Rate 103 H 105 H 101 H Respiratory 21 18 15 Rate Blood Pressure 68/31 80/34 80/34 Blood Pressure [Right] O2 Sat by Pulse Oximetry 06/24/21 06/24/21 06/24/21 07:46 07:50 07:56 Pulse Rate 104 H 107 H 101 H Respiratory 18 18 16 Rate Blood Pressure 59/31 59/31 59/31 Blood Pressure [Right] O2 Sat by Pulse Oximetry 06/24/21 06/24/21 06/24/21 08:00 08:06 08:10 Pulse Rate 101 H 109 H 108 H Respiratory 16 15 16 Rate Blood Pressure 59/31 75/39 75/39 Blood Pressure [Right] O2 Sat by Pulse Oximetry 06/24/21 06/24/21 06/24/21 08:16 08:20 08:26 Pulse Rate 101 H 101 H 107 H Respiratory 16 17 16 Rate Blood Pressure 75/39 75/39 75/39 Blood Pressure [Right] O2 Sat by Pulse Oximetry 06/24/21 06/24/21 06/24/21 08:30 08:36 08:40 Pulse Rate 106 H 100 H 108 H Respiratory 16 53 H 29 H Rate Blood Pressure 75/39 82/39 82/39 Blood Pressure [Right] O2 Sat by Pulse Oximetry 06/24/21 06/24/21 06/24/21 08:45 08:50 08:56 Pulse Rate 112 H 109 H 113 H Respiratory 31 H 19 29 H Rate Blood Pressure 82/39 82/39 Blood Pressure [Right] O2 Sat by Pulse Oximetry 06/24/21 06/24/21 06/24/21 09:00 09:06 09:10 Pulse Rate 123 H 104 H 110 H Respiratory 19 16 27 H Rate Blood Pressure 82/39 135/56 135/56 Blood Pressure [Right] O2 Sat by Pulse Oximetry 06/24/21 06/24/21 06/24/21 09:16 09:20 09:26 Pulse Rate 112 H 105 H Respiratory 37 H 16 19 Rate Blood Pressure 135/56 135/56 135/56 Blood Pressure [Right] O2 Sat by Pulse Oximetry 06/24/21 06/24/21 06/24/21 09:30 09:36 09:40 Pulse Rate 89 94 H 117 H Respiratory 46 H 33 H 19 Rate Blood Pressure 135/56 100/44 100/44 Blood Pressure [Right] O2 Sat by Pulse Oximetry 06/24/21 06/24/21 06/24/21 09:46 09:50 09:56 Pulse Rate 115 H 107 H 128 H Respiratory 18 17 22 Rate Blood Pressure 100/44 100/44 100/44 Blood Pressure [Right] O2 Sat by Pulse Oximetry 06/24/21 06/24/21 06/24/21 10:00 10:06 10:10 Pulse Rate 126 H 128 H 126 H Respiratory 22 20 20 Rate Blood Pressure 100/44 135/57 135/57 Blood Pressure [Right] O2 Sat by Pulse Oximetry 06/24/21 06/24/21 06/24/21 10:16 10:20 10:26 Pulse Rate 122 H 112 H 129 H Respiratory 20 16 22 Rate Blood Pressure 135/57 135/57 135/57 Blood Pressure [Right] O2 Sat by Pulse Oximetry 06/24/21 06/24/21 06/24/21 10:30 10:36 10:40 Pulse Rate 124 H 112 H 122 H Respiratory 17 19 20 Rate Blood Pressure 135/57 107/44 107/44 Blood Pressure [Right] O2 Sat by Pulse Oximetry 06/24/21 06/24/21 06/24/21 10:46 10:50 10:56 Pulse Rate 132 H 122 H 119 H Respiratory 21 19 20 Rate Blood Pressure 107/44 107/44 107/44 Blood Pressure [Right] O2 Sat by Pulse Oximetry 06/24/21 11:00 Pulse Rate 107 H Respiratory 17 Rate Blood Pressure 107/44 Blood Pressure [Right] O2 Sat by Pulse Oximetry - Labs CBC & Chem 7: 06/24/21 05:33 06/24/21 05:33 Labs: Abnormal lab results 06/23/21 06/24/21 06/24/21 Range/Units 17:43 00:43 00:45 WBC (4.5-11.0) K/mm3 Seg Neuts % (Manual) (40.0-70.0) % Lymphocytes % (Manual) (13.4-35.0) % Seg Neutrophils # Man (1.8-7.7) K/mm3 Lymphocytes # (Manual) (1.2-5.4) K/mm3 Sodium 117 L* 119 L* (137-145) mmol/L Chloride 74.9 L 79.6 L (98-107) mmol/L Carbon Dioxide 32 H (22-30) mmol/L Creatinine 0.3 L 0.4 L (0.6-1.2) mg/dL Glucose 125 H 116 H (65-100) mg/dL POC Glucose 117 H (70-105) mg/dL 06/24/21 06/24/21 06/24/21 Range/Units 05:33 05:33 06:11 WBC 12.0 H (4.5-11.0) K/mm3 Seg Neuts % (Manual) 95.0 H (40.0-70.0) % Lymphocytes % (Manual) 2.0 L (13.4-35.0) % Seg Neutrophils # Man 11.4 H (1.8-7.7) K/mm3 Lymphocytes # (Manual) 0.2 L (1.2-5.4) K/mm3 Sodium 122 L (137-145) mmol/L Chloride 80.2 L (98-107) mmol/L Carbon Dioxide 31 H (22-30) mmol/L Creatinine 0.3 L (0.6-1.2) mg/dL Glucose 143 H (65-100) mg/dL POC Glucose 141 H (70-105) mg/dL Medications & Allergies - Medications Allergies/Adverse Reactions: Allergies No Known Allergies Allergy (Unverified 06/22/21 07:44) Home Medications: Home Medications Medication Instructions Recorded Confirmed Last Taken Type Atenolol/Chlorthalidone [Tenoretic 1 tab PO DAILY 06/22/21 06/22/21 Unknown History 50-25] Clopidogrel [Plavix] 75 mg PO DAILY 06/22/21 06/22/21 Unknown History Glimepiride [Amaryl] 2 mg PO QAM 06/22/21 06/22/21 Unknown History Pioglitazone [Actos] 15 mg PO DAILY 06/22/21 06/22/21 Unknown History Pravastatin [Pravachol] 40 mg PO QHS 06/22/21 06/22/21 Unknown History lisinopriL [Zestril TAB] 5 mg PO DAILY 06/22/21 06/22/21 Unknown History Active Medications: Generic Name Dose Route Start Last Admin Trade Name Freq PRN Reason Stop Dose Admin Acetaminophen 650 mg 06/22/21 22:21 06/23/21 12:13 Acetaminophen 325 Mg Tab PO 650 mg Q4H PRN Administration Pain MILD(1-3)/Fever >100.5/NAVA Clopidogrel Bisulfate 75 mg 06/23/21 10:00 06/24/21 10:15 Clopidogrel 75 Mg Tab PO 75 mg DAILY JUDY Administration Famotidine 20 mg 06/22/21 23:00 06/24/21 10:15 Famotidine 20 Mg/2 Ml Inj IV 20 mg BID JUDY Administration Heparin Sodium (Porcine) 5,000 unit 06/22/21 22:30 06/24/21 10:15 Heparin 5,000 Unit/1 Ml Vial SUB-Q 5,000 unit Q12HR JUDY Administration Azithromycin 500 mg in 250 mls @ 250 mls/hr 06/23/21 10:00 06/24/21 10:45 Zithromax/Ns IV 250 mls/hr Q24H JUDY Administration Ceftriaxone Sodium 2 gm in 100 mls @ 200 mls/hr 06/23/21 10:00 06/24/21 10:15 Rocephin/Ns 2 Gm/100 Ml IV 200 mls/hr Q24HR JUDY Administration Protocol Insulin Human Lispro 0 unit 06/22/21 23:00 06/24/21 10:05 Insulin Lispro 100 Unit/Ml SUB-Q Not Given Q4HR [facility] Protocol Lisinopril 5 mg 06/23/21 10:00 06/24/21 10:15 Lisinopril 5 Mg Tab PO 5 mg DAILY JUDY Administration Metoclopramide HCl 10 mg 06/22/21 22:21 Metoclopramide 10 Mg/2 Ml Inj IV Q6H PRN Nausea And Vomiting Ondansetron HCl 4 mg 06/22/21 22:21 Ondansetron 4 Mg/2 Ml Inj IV Q8H PRN Nausea And Vomiting Oxycodone/Acetaminophen 1 tab 06/22/21 22:21 Oxycodone /Acetaminophen 5-325mg Tab PO Q6H PRN Pain, Moderate (4-6) Pravastatin Sodium 40 mg 06/23/21 22:00 06/24/21 01:10 Pravastatin 40 Mg Tab PO 40 mg QHS JUDY Administration Sodium Chloride 10 ml 06/23/21 10:00 06/24/21 10:15 Sodium Chloride 0.9% 10 Ml Flush Syringe IV 10 ml BID JUDY Administration Sodium Chloride 10 ml 06/22/21 22:21 Sodium Chloride 0.9% 10 Ml Flush Syringe IV PRN PRN LINE FLUSH HEART Score - HEART Score Troponin: Troponin T < 0.010 ng/mL (0.00-0.029) 06/22/21 07:58
[2021-06-24 17:15] LABS: Blood Urea Nitrogen 10 mg/dL (7-17); Calcium 8.9 mg/dL (8.4-10.2); Hemolysis Index 7
[2021-06-24 17:16] LABS: BUN/Creatinine Ratio 20
[2021-06-24] MEDS ORDERED: FUROSEMIDE 20 MG/2 ML INJ IV ONE (17:35)
--- NOTE | 2021-06-24 17:41 | Progress Note ---
Assessment and Plan Assessment and plan: (1) Acute metabolic encephalopathy-improving -Secondary to severe hyponatremia Nephrology consulted (2) Acute hyponatremia Likely secondary from decreased oral intake combined with chlorthalidone consumption Sodium 122 Status post 3% saline. Nephrology consulted; appreciate recs Continue BMP every 6 hours, fluid restrict, and encourage oral intake. Continue to monitor. If sodium continues to improve, patient can be transferred to the floor with telemetry tomorrow. (3) Hypokalemiaresolved Potassium 3.9; repleted (4) Community acquired pneumonia -Continue IV Rocephin 2 g daily and azithromycin 500 mg daily (5) Essential (primary) hypertension Holding chlorthalidone Holding antihypertensives in the setting of soft blood pressures. We will add medications as needed. Continue to monitor (6) Type 2 diabetes mellitus without complications -Continue SSI Blood glucose goal [id number] while inpatient. Continue to monitor. (7) Hypomagnesemia-resolved -Repleted (8) UTI (urinary tract infection) -Concurrently being treated with Rocephin; discontinuing after 3 days The high probability of a clinically significant, sudden or life threatening deterioration of the [renal] system(s) required my full and direct attention, intervention and personal management. The aggregate critical care time was [60] minutes. This time is in addition to time spent performing reported procedures but includes the following: [x] Data Review and interpretation [x] Patient assessment and monitoring of vital signs [x] Documentation [x] Medication orders and management Disposition Plan: Continue medical management Total Time Spent with Patient (Minutes): 45 minutes History Interval history: No acute events overnight. Hospitalist Physical - Constitutional Vitals: Temp Pulse Resp BP Pulse Ox 98.6 F 127 H 22 103/46 94 06/22/21 08:23 06/24/21 15:30 06/24/21 15:20 06/24/21 15:30 06/24/21 15:30 General appearance: Present: no acute distress, well-nourished - EENT Eyes: Present: PERRL, EOM intact ENT: hearing intact, clear oral mucosa - Neck Neck: Present: supple, normal ROM - Respiratory Respiratory effort: normal Respiratory: bilateral: diminished (On 3 L nasal cannula) - Cardiovascular Heart rate: 120 Rhythm: regular Heart Sounds: Present: S1 & S2 - Extremities Extremities: no ischemia, pulses intact, pulses symmetrical, normal temperature, normal color Peripheral Pulses: within normal limits - Abdominal General gastrointestinal: soft, non-tender, non-distended, normal bowel sounds - Integumentary Integumentary: Present: clear, warm, dry - Psychiatric Psychiatric: appropriate mood/affect - Neurologic Neurologic: CNII-XII intact - Allied Health Allied health notes reviewed: nursing HEART Score - HEART Score Troponin: Troponin T < 0.010 ng/mL (0.00-0.029) 06/22/21 07:58 Results - Labs CBC & Chem 7: 06/24/21 05:33 06/24/21 16:25 Labs: Laboratory Last Values WBC 12.0 K/mm3 (4.5-11.0) H 06/24/21 05:33 RBC 4.54 M/mm3 (3.65-5.03) 06/24/21 05:33 Hgb 13.1 gm/dl (10.1-14.3) 06/24/21 05:33 Hct 41.1 % (30.3-42.9) 06/24/21 05:33 MCV 91 fl (79-97) 06/24/21 05:33 MCH 29 pg (28-32) 06/24/21 05:33 MCHC 32 % (30-34) 06/24/21 05:33 RDW 13.6 % (13.2-15.2) 06/24/21 05:33 Plt Count 327 K/mm3 (140-440) 06/24/21 05:33 Lymph % (Auto) 5.8 % (13.4-35.0) L 06/23/21 05:29 [place]lin % (Auto) 6.9 % (0.0-7.3) 06/23/21 05:29 Eos % (Auto) 0.1 % (0.0-4.3) 06/23/21 05:29 Baso % (Auto) 0.1 % (0.0-1.8) 06/23/21 05:29 Lymph # (Auto) 0.7 K/mm3 (1.2-5.4) L 06/23/21 05:29 [place]lin # (Auto) 0.9 K/mm3 (0.0-0.8) H 06/23/21 05:29 Eos # (Auto) 0.0 K/mm3 (0.0-0.4) 06/23/21 05:29 Baso # (Auto) 0.0 K/mm3 (0.0-0.1) 06/23/21 05:29 Add Manual Diff Complete 06/24/21 05:33 Total Counted 100 06/24/21 05:33 Seg Neutrophils % 87.1 % (40.0-70.0) H 06/23/21 05:29 Seg Neuts % (Manual) 95.0 % (40.0-70.0) H 06/24/21 05:33 Lymphocytes % (Manual) 2.0 % (13.4-35.0) L 06/24/21 05:33 Monocytes % (Manual) 2.0 % (0.0-7.3) 06/24/21 05:33 Metamyelocytes % 1.0 % 06/24/21 05:33 Nucleated RBC % Not Reportable 06/24/21 05:33 Seg Neutrophils # 10.8 K/mm3 (1.8-7.7) H 06/23/21 05:29 Seg Neutrophils # Man 11.4 K/mm3 (1.8-7.7) H 06/24/21 05:33 Band Neutrophils # 0.0 K/mm3 06/24/21 05:33 Lymphocytes # (Manual) 0.2 K/mm3 (1.2-5.4) L 06/24/21 05:33 Abs React Lymphs (Man) 0.0 K/mm3 06/24/21 05:33 Monocytes # (Manual) 0.2 K/mm3 (0.0-0.8) 06/24/21 05:33 Eosinophils # (Manual) 0.0 K/mm3 (0.0-0.4) 06/24/21 05:33 Basophils # (Manual) 0.0 K/mm3 (0.0-0.1) 06/24/21 05:33 Metamyelocytes # 0.1 K/mm3 06/24/21 05:33 Myelocytes # 0.0 K/mm3 06/24/21 05:33 Promyelocytes # 0.0 K/mm3 06/24/21 05:33 Blast Cells # 0.0 K/mm3 06/24/21 05:33 WBC Morphology Not Reportable 06/24/21 05:33 Hypersegmented Neuts Not Reportable 06/24/21 05:33 Hyposegmented Neuts Not Reportable 06/24/21 05:33 Hypogranular Neuts Not Reportable 06/24/21 05:33 Smudge Cells Not Reportable 06/24/21 05:33 Toxic Granulation Not Reportable 06/24/21 05:33 Toxic Vacuolation Not Reportable 06/24/21 05:33 Dohle Bodies Not Reportable 06/24/21 05:33 Pelger-Huet Anomaly Not Reportable 06/24/21 05:33 Otf Rods Not Reportable 06/24/21 05:33 Platelet Estimate Consistent w auto 06/24/21 05:33 Clumped Platelets Not Reportable 06/24/21 05:33 Plt Clumps, EDTA Not Reportable 06/24/21 05:33 Large Platelets Not Reportable 06/24/21 05:33 Giant Platelets Not Reportable 06/24/21 05:33 Platelet Satelliting Not Reportable 06/24/21 05:33 Plt Morphology Comment Not Reportable 06/24/21 05:33 RBC Morphology Not Reportable 06/24/21 05:33 Dimorphic RBCs Not Reportable 06/24/21 05:33 Polychromasia Few 06/24/21 05:33 Hypochromasia Not Reportable 06/24/21 05:33 Poikilocytosis 1+ 06/24/21 05:33 Anisocytosis 1+ 06/24/21 05:33 Microcytosis Not Reportable 06/24/21 05:33 Macrocytosis Not Reportable 06/24/21 05:33 Spherocytes Not Reportable 06/24/21 05:33 Pappenheimer Bodies Not Reportable 06/24/21 05:33 Sickle Cells Not Reportable 06/24/21 05:33 Target Cells Not Reportable 06/24/21 05:33 Tear Drop Cells Not Reportable 06/24/21 05:33 Ovalocytes Not Reportable 06/24/21 05:33 Helmet Cells Not Reportable 06/24/21 05:33 [place] Bodies Not Reportable 06/24/21 05:33 [place] Rings Not Reportable 06/24/21 05:33 [place] Cells Not Reportable 06/24/21 05:33 Bite Cells Not Reportable 06/24/21 05:33 Crenated Cell Not Reportable 06/24/21 05:33 Elliptocytes Few 06/24/21 05:33 Acanthocytes (Spur) Few 06/24/21 05:33 Rouleaux Few 06/24/21 05:33 Hemoglobin C Crystals Not Reportable 06/24/21 05:33 Schistocytes Not Reportable 06/24/21 05:33 Malaria parasites Not Reportable 06/24/21 05:33 Steve Bodies Not Reportable 06/24/21 05:33 Hem Pathologist Commnt No 06/24/21 05:33 PT 11.8 Sec. (12.2-14.9) L 06/22/21 07:58 INR 0.78 (0.87-1.13) L 06/22/21 07:58 APTT 29.0 Sec. (24.2-36.6) 06/22/21 07:58 Thrombin Time 15.9 Sec. (15.1-19.6) 06/22/21 07:58 Sodium 122 mmol/L (137-145) L 06/24/21 16:25 Potassium 3.9 mmol/L (3.6-5.0) 06/24/21 16:25 Chloride 78.9 mmol/L (98-107) L 06/24/21 16:25 Carbon Dioxide 32 mmol/L (22-30) H 06/24/21 16:25 Anion Gap 15 mmol/L 06/24/21 16:25 BUN 10 mg/dL (7-17) 06/24/21 16:25 Creatinine 0.5 mg/dL (0.6-1.2) L D 06/24/21 16:25 Estimated GFR > 60 ml/min 06/24/21 16:25 BUN/Creatinine Ratio 20 % 06/24/21 16:25 Glucose 141 mg/dL (65-100) H 06/24/21 16:25 POC Glucose 141 mg/dL (70-105) H 06/24/21 06:11 Hemoglobin A1c 6.6 % (4-6) H 06/23/21 05:29 Osmolality 240 Mosm/kg 06/22/21 23:24 Lactic Acid 1.20 mmol/L (0.7-2.0) 06/22/21 11:28 Uric Acid 3.2 mg/dL (3.5-7.6) L 06/23/21 05:29 Calcium 8.9 mg/dL (8.4-10.2) 06/24/21 16:25 Magnesium 1.50 mg/dL (1.7-2.3) L 06/23/21 05:29 Ferritin 102.1 ng/mL (10.0-200.0) 06/22/21 08:56 Lactate Dehydrogenase 220 units/L (91-180) H 06/22/21 08:56 Troponin T < 0.010 ng/mL (0.00-0.029) 06/22/21 07:58 C-Reactive Protein 5.40 mg/dL (0.00-1.30) H 06/22/21 08:56 Procalcitonin < 0.05 ng/mL (<0.15) 06/22/21 08:56 TSH 1.070 mlU/mL (0.270-4.200) 06/22/21 07:58 Urine Color Yellow (Yellow) 06/22/21 11:47 Urine Turbidity Slightly-cloudy (Clear) 06/22/21 11:47 Urine pH 6.0 (5.0-7.0) 06/22/21 11:47 Ur Specific [place] 1.021 (1.003-1.030) 06/22/21 11:47 Urine Protein >500 mg/dL (Negative) 06/22/21 11:47 Urine Glucose (UA) >=500 mg/dL (Negative) 06/22/21 11:47 Urine Ketones 80 mg/dL (Negative) 06/22/21 11:47 Urine Blood Mod (Negative) 06/22/21 11:47 Urine Nitrite Neg (Negative) 06/22/21 11:47 Urine Bilirubin Neg (Negative) 06/22/21 11:47 Urine Urobilinogen < 2.0 mg/dL (<2.0) 06/22/21 11:47 Ur Leukocyte Esterase Neg (Negative) 06/22/21 11:47 Urine WBC (Auto) 11.0 /HPF (0.0-6.0) H 06/22/21 11:47 Urine RBC (Auto) 3.0 /HPF (0.0-6.0) 06/22/21 11:47 U Epithel Cells (Auto) 3.0 /HPF (0-13.0) 06/22/21 11:47 Urine Bacteria (Auto) 1+ /HPF (Negative) 06/22/21 11:47 Ur Transition Epith Cell 1 /HPF 06/22/21 11:47 Hyaline Casts 5 /LPF 06/22/21 11:47 Urine Mucus Few /HPF 06/22/21 11:47 Urine Yeast (Budding) Few /HPF 06/22/21 11:47 Urine Osmolality 571 Mosm/kg 06/22/21 11:47 Urine Sodium 25 mmol/L 06/22/21 11:47 Coronavirus (PCR) Negative (Negative) 06/22/21 Unknown Microbiology: Microbiology 06/22/21 08:56 Peripheral/Venous Blood Culture - Preliminary NO GROWTH AFTER 48 HOURS 06/22/21 08:56 Peripheral/Venous Blood Culture - Preliminary NO GROWTH AFTER 48 HOURS 06/22/21 11:47 Urine,Clean Catch Urine Culture - Final Active Medications - Current Medications Current Medications: Generic Name Dose Route Start Last Admin Trade Name Freq PRN Reason Stop Dose Admin Acetaminophen 650 mg 06/22/21 22:21 06/23/21 12:13 Acetaminophen 325 Mg Tab PO 650 mg Q4H PRN Administration Pain MILD(1-3)/Fever >100.5/NAVA Clopidogrel Bisulfate 75 mg 06/23/21 10:00 06/24/21 10:15 Clopidogrel 75 Mg Tab PO 75 mg DAILY JUDY Administration Famotidine 20 mg 06/22/21 23:00 06/24/21 10:15 Famotidine 20 Mg/2 Ml Inj IV 20 mg BID JUDY Administration Heparin Sodium (Porcine) 5,000 unit 06/22/21 22:30 06/24/21 10:15 Heparin 5,000 Unit/1 Ml Vial SUB-Q 5,000 unit Q12HR JUDY Administration Insulin Human Lispro 0 unit 06/22/21 23:00 06/24/21 14:34 Insulin Lispro 100 Unit/Ml SUB-Q Not Given Q4HR [facility] Protocol Lisinopril 5 mg 06/23/21 10:00 06/24/21 10:15 Lisinopril 5 Mg Tab PO 5 mg DAILY JUDY Administration Metoclopramide HCl 10 mg 06/22/21 22:21 Metoclopramide 10 Mg/2 Ml Inj IV Q6H PRN Nausea And Vomiting Ondansetron HCl 4 mg 06/22/21 22:21 Ondansetron 4 Mg/2 Ml Inj IV Q8H PRN Nausea And Vomiting Oxycodone/Acetaminophen 1 tab 06/22/21 22:21 Oxycodone /Acetaminophen 5-325mg Tab PO Q6H PRN Pain, Moderate (4-6) Pravastatin Sodium 40 mg 06/23/21 22:00 06/24/21 01:10 Pravastatin 40 Mg Tab PO 40 mg QHS JUDY Administration Sodium Chloride 10 ml 06/23/21 10:00 06/24/21 10:15 Sodium Chloride 0.9% 10 Ml Flush Syringe IV 10 ml BID JUDY Administration Sodium Chloride 10 ml 06/22/21 22:21 Sodium Chloride 0.9% 10 Ml Flush Syringe IV PRN PRN LINE FLUSH
[2021-06-25] MEDS: INSULIN LISPRO 100 UNIT/ML SUB-Q SCH ×3 (03:08→10:23)
[2021-06-25 05:21] LABS: Calcium 9.6 mg/dL (8.4-10.2)
--- NOTE | 2021-06-25 09:38 | Electrocardiograph Report ---
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
[2021-06-25] MEDS: LISINOPRIL 5 MG TAB PO SCH ×2 (10:24→17:12)
[2021-06-25] MEDS: CLOPIDOGREL 75 MG TAB PO SCH ×2 (10:24→17:00)
[2021-06-25] MEDS: FAMOTIDINE 20 MG/2 ML INJ IV SCH ×2 (10:25→21:21)
--- NOTE | 2021-06-25 11:14 | Electrocardiograph Report ---
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
[2021-06-25] MEDS ORDERED: METOPROLOL TARTRATE 5 MG/5 ML INJ IV SCH (11:45)
[2021-06-25] MEDS ORDERED: TOLVAPTAN 15 MG TAB PO SCH (12:00)
[2021-06-25] MEDS ORDERED: HEPARIN 10,000 UNITS/10 ML VIAL IV PRN (12:30)
--- NOTE | 2021-06-25 12:49 | Consultation ---
History of Present Illness Consult date: 06/25/21 Requesting physician: LISA MALONE Consult reason: atrial fibrillation History of present illness: Patient is 65-year-old female with a past medical history of hypertension, diabetes, and tobacco use who is brought to the ED for complaint of weakness and altered mental status that lasted 4 days prior to admission. History is taken from documentation due to patient's altered mental status. 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 In hospital patient was found to be severely hyponatremic with a sodium of 107. Patient was also found to have pneumonia and a UTI and is currently being treated with antibiotic. Of note on an outpatient patient is on chlorthalidone diuretic. Today patient went into new onset A. fib with RVR with a rate as high as the 130s. Patient is previously unknown to our practice. Cardiology is consulted for new onset A. fib with RVR. Past History Past Medical History: diabetes, hypertension Past Surgical History: No surgical history Social history: other (Unable to obtain due to patient's AMS) Family history: other (Unable to obtain due to patient's mental status) Medications and Allergies Allergies Allergy/AdvReac Type Severity Reaction Status Date / Time No Known Allergies Allergy Unverified 06/22/21 07:44 Home Medications Medication Instructions Recorded Confirmed Last Taken Type Atenolol/Chlorthalidone [Tenoretic 1 tab PO DAILY 06/22/21 06/22/21 Unknown History 50-25] Clopidogrel [Plavix] 75 mg PO DAILY 06/22/21 06/22/21 Unknown History Glimepiride [Amaryl] 2 mg PO QAM 06/22/21 06/22/21 Unknown History Pioglitazone [Actos] 15 mg PO DAILY 06/22/21 06/22/21 Unknown History Pravastatin [Pravachol] 40 mg PO QHS 06/22/21 06/22/21 Unknown History lisinopriL [Zestril TAB] 5 mg PO DAILY 06/22/21 06/22/21 Unknown History Active Meds: Active Medications Acetaminophen (Acetaminophen 325 Mg Tab) 650 mg PO Q4H PRN PRN Reason: Pain MILD(1-3)/Fever >100.5/NAVA Last Admin: 06/23/21 12:13 Dose: 650 mg Documented by: Clopidogrel Bisulfate (Clopidogrel 75 Mg Tab) 75 mg PO DAILY [facility] Last Admin: 06/25/21 10:24 Dose: Not Given Documented by: Famotidine (Famotidine 20 Mg/2 Ml Inj) 20 mg IV BID [facility] Heparin Sodium (Porcine) (Heparin 10,000 Units/10 Ml Vial) 3,400 unit 40 unit/kg (3400 unit) IV ONCE@1300 [facility] Stop: 06/25/21 15:00 Heparin Sodium/Sodium Chloride (Heparin/ 0.45% Nacl-25,000 Unit/500 Ml) 25,000 unit in 500 mls @ 26 mls/hr IV TITR [facility]; Protocol Amiodarone HCl 150 mg/ (Dextrose) 100 mls @ 600 mls/hr IV ONCE@1300 [facility] Stop: 06/25/21 13:30 Amiodarone HCl 900 mg/ (Dextrose) 500 mls @ 33.333 mls/hr IV DIRECT [facility]; Protocol Insulin Human Lispro (Insulin Lispro 100 Unit/Ml) 0 unit SUB-Q Q4HR [facility]; Protocol Last Admin: 06/25/21 10:23 Dose: Not Given Documented by: Lisinopril (Lisinopril 5 Mg Tab) 5 mg PO DAILY [facility] Last Admin: 06/25/21 10:24 Dose: Not Given Documented by: Metoclopramide HCl (Metoclopramide 10 Mg/2 Ml Inj) 10 mg IV Q6H PRN PRN Reason: Nausea And Vomiting Ondansetron HCl (Ondansetron 4 Mg/2 Ml Inj) 4 mg IV Q8H PRN PRN Reason: Nausea And Vomiting Oxycodone/Acetaminophen (Oxycodone /Acetaminophen 5-325mg Tab) 1 tab PO Q6H PRN PRN Reason: Pain, Moderate (4-6) Pravastatin Sodium (Pravastatin 40 Mg Tab) 40 mg PO QHS [facility] Last Admin: 06/24/21 23:46 Dose: 40 mg Documented by: Sodium Chloride (Sodium Chloride 0.9% 10 Ml Flush Syringe) 10 ml IV BID [facility] Last Admin: 06/25/21 10:25 Dose: 10 ml Documented by: Sodium Chloride (Sodium Chloride 0.9% 10 Ml Flush Syringe) 10 ml IV PRN PRN PRN Reason: LINE FLUSH Tolvaptan (Tolvaptan 15 Mg Tab) 15 mg PO ONCE@1200 [facility] Stop: 06/25/21 16:00 Review of Systems ROS unobtainable: due to mental status Physical Examination Vital Signs Pulse Resp BP Pulse Ox 98 H 20 122/94 98 06/22/21 07:46 06/22/21 07:46 06/22/21 07:46 06/22/21 07:46 General appearance: no acute distress HEENT: Positive: Mucus Membranes Dry Neck: Positive: trachea midline Cardiac: Positive: irregularly irregular Lungs: Positive: Normal Breath Sounds Neuro: Positive: Other (Altered mental status) Abdomen: Positive: Soft Skin: Negative: Rash, Suspicious Lesions, Ulceration Extremities: Present: upper extr. pulses. Absent: edema Results 06/24/21 05:33 06/25/21 00:18 Comprehensive Metabolic Panel 06/24/21 06/24/21 06/25/21 Range/Units 16:25 18:16 00:18 Sodium 122 L 123 L 122 L (137-145) mmol/L Potassium 3.9 (3.6-5.0) mmol/L Chloride 78.9 L (98-107) mmol/L Carbon Dioxide 32 H (22-30) mmol/L BUN 10 (7-17) mg/dL Creatinine 0.5 L D (0.6-1.2) mg/dL Glucose 141 H (65-100) mg/dL Calcium 8.9 (8.4-10.2) mg/dL 06/25/21 Range/Units 03:45 Sodium (137-145) mmol/L Potassium (3.6-5.0) mmol/L Chloride (98-107) mmol/L Carbon Dioxide (22-30) mmol/L BUN (7-17) mg/dL Creatinine (0.6-1.2) mg/dL Glucose (65-100) mg/dL Calcium 9.6 (8.4-10.2) mg/dL - Imaging and Cardiology Echo: pending EKG: report reviewed, image reviewed EKG interpretations - Telemetry EKG Rhythm: Atrial Fibrillation - EKG Supraventricular dysrhythmia: atrial fibrillation Myocardial infarction: anterior IN (old age or i Assessment and Plan Patient is 65-year-old female with a past medical history of hypertension, diabetes, and tobacco use who is brought to the ED for complaint of weakness and altered mental status that lasted 4 days prior to admission AMS Symptomatic Hyponatremia-nephrology following Afib w/ RVR PNA-on ABXs Acute respiratory failure-on venti mask UTI-on ABXs DM Obesity Plan: EKG 06/25/2020 shows A. fib with rate of 104 and PVCs. Old anterior septal infarct. No acute ischemic changes EKG 06/24/2020 shows sinus tach with a irregular rate and old anterior septal infarct Echo pending Initiate amiodarone bolus and drip for rate control Initiate heparin drip for anticoagulation Patient seen in conjunction with Dr. Monterroso who agrees with this plan of care. We will continue to follow - Patient Problems (1) Atrial fibrillation with RVR Current Visit: Yes Status: Acute (2) Acute metabolic encephalopathy Current Visit: Yes Status: Acute (3) Acute hyponatremia Current Visit: Yes Status: Acute (4) Community acquired pneumonia Current Visit: Yes Status: Acute (5) Hypokalemia Current Visit: Yes Status: Acute (6) Essential (primary) hypertension Current Visit: Yes Status: Acute (7) Type 2 diabetes mellitus without complications Current Visit: Yes Status: Chronic (8) Hypomagnesemia Current Visit: Yes Status: Acute (9) UTI (urinary tract infection) Current Visit: Yes Status: Acute Qualifiers: Urinary tract infection type: acute cystitis
[2021-06-25] MEDS ORDERED: AMIODARONE 150 MG in DEXTROSE 5% IN WATER 97 ML IV SCH (13:00)
[2021-06-25] MEDS ORDERED: HEPARIN 10,000 UNITS/10 ML VIAL IV SCH (13:00)
[2021-06-25] MEDS ORDERED: AMIODARONE 900 MG in DEXTROSE 5% IN WATER 482 ML IV SCH (13:00)
--- NOTE | 2021-06-25 13:35 | Progress Note ---
Assessment and Plan - Patient Problems (1) Acute hyponatremia Current Visit: Yes Status: Acute Plan to address problem: we will give 1 dose of Samsca today to assess response as she continues to have persistent hyponatremia with slow improvement noted. We will monitor very closely. (2) Acute metabolic encephalopathy Current Visit: Yes Status: Acute Plan to address problem: in the setting of acute hyponatremia. We will continue to monitor response. S eems to be slowly improving since admission. (3) Atrial fibrillation with RVR Current Visit: Yes Status: Acute Plan to address problem: cardiology recommendations appreciated. (4) Community acquired pneumonia Current Visit: Yes Status: Acute Plan to address problem: antibiotic therapy per primary team. In setting of pneumonia the hyponatremia that we are seeing at this time could be SIADH induced. Urine osmolality is also indicate likely underlying SIADH. (5) Essential (primary) hypertension Current Visit: Yes Status: Acute Plan to address problem: monitor blood pressure on the current regimen. (6) Type 2 diabetes mellitus without complications Current Visit: Yes Status: Chronic Plan to address problem: diabetes management per primary attending. Subjective Date of service: 06/25/21 Principal diagnosis: Hyponatremia Interval history: labs reviewed with slow increase in serum sodium levels noted. We will give dose of Samsca this morning. Objective - Vital Signs Vital signs: Vital Signs - 12hr 06/25/21 06/25/21 06/25/21 01:36 01:40 01:46 Temperature Pulse Rate 126 H 120 H 127 H Respiratory 20 19 20 Rate Blood Pressure 133/46 133/46 133/46 O2 Sat by Pulse 100 100 100 Oximetry 06/25/21 06/25/21 06/25/21 01:50 01:56 02:00 Temperature Pulse Rate 121 H 123 H 119 H Respiratory 18 19 19 Rate Blood Pressure 133/46 133/46 92/32 O2 Sat by Pulse 100 100 100 Oximetry 06/25/21 06/25/21 06/25/21 02:06 02:10 02:16 Temperature Pulse Rate 121 H 116 H 123 H Respiratory 19 19 20 Rate Blood Pressure 92/32 92/32 92/32 O2 Sat by Pulse 100 100 100 Oximetry 06/25/21 06/25/21 06/25/21 02:20 02:26 02:30 Temperature Pulse Rate 118 H 124 H 124 H Respiratory 18 20 20 Rate Blood Pressure 92/32 92/32 92/32 O2 Sat by Pulse 100 100 100 Oximetry 06/25/21 06/25/21 06/25/21 02:32 02:36 02:40 Temperature 98.9 F Pulse Rate 125 H 119 H Respiratory 21 21 Rate Blood Pressure 92/32 92/32 O2 Sat by Pulse 99 97 Oximetry 06/25/21 06/25/21 06/25/21 02:46 02:50 02:56 Temperature Pulse Rate 118 H 118 H 116 H Respiratory 21 21 21 Rate Blood Pressure 92/32 92/32 92/32 O2 Sat by Pulse 95 94 93 Oximetry 06/25/21 06/25/21 06/25/21 03:00 03:06 03:10 Temperature Pulse Rate 116 H 118 H 118 H Respiratory 21 21 22 Rate Blood Pressure 101/39 101/39 101/39 O2 Sat by Pulse 93 92 92 Oximetry 06/25/21 06/25/21 06/25/21 03:16 03:20 03:26 Temperature Pulse Rate 121 H 119 H 114 H Respiratory 23 24 22 Rate Blood Pressure 101/39 101/39 101/39 O2 Sat by Pulse 91 93 90 Oximetry 06/25/21 06/25/21 06/25/21 03:30 03:36 03:40 Temperature Pulse Rate 118 H 115 H 114 H Respiratory 23 21 22 Rate Blood Pressure 101/39 101/39 101/39 O2 Sat by Pulse 90 90 89 Oximetry 06/25/21 06/25/21 06/25/21 03:46 03:50 03:56 Temperature Pulse Rate 117 H 119 H 116 H Respiratory 24 21 18 Rate Blood Pressure 101/39 101/39 101/39 O2 Sat by Pulse 91 91 91 Oximetry 06/25/21 06/25/21 06/25/21 04:00 04:06 04:10 Temperature Pulse Rate 118 H 120 H 118 H Respiratory 21 19 22 Rate Blood Pressure 98/48 98/48 98/48 O2 Sat by Pulse 91 91 92 Oximetry 06/25/21 06/25/21 06/25/21 04:16 04:20 04:26 Temperature Pulse Rate 115 H 112 H 108 H Respiratory 21 21 23 Rate Blood Pressure 98/48 98/48 98/48 O2 Sat by Pulse 93 93 93 Oximetry 06/25/21 06/25/21 06/25/21 04:30 04:36 04:40 Temperature Pulse Rate 113 H 113 H 114 H Respiratory 21 22 21 Rate Blood Pressure 98/48 98/48 98/48 O2 Sat by Pulse 93 93 94 Oximetry 06/25/21 06/25/21 06/25/21 04:46 04:50 04:56 Temperature Pulse Rate 115 H 117 H 116 H Respiratory 21 21 21 Rate Blood Pressure 98/48 98/48 98/48 O2 Sat by Pulse 94 94 94 Oximetry 06/25/21 06/25/21 06/25/21 05:00 05:06 05:10 Temperature Pulse Rate 115 H 115 H 115 H Respiratory 22 21 21 Rate Blood Pressure 95/48 95/48 95/48 O2 Sat by Pulse 94 94 94 Oximetry 06/25/21 06/25/21 06/25/21 05:16 05:20 05:26 Temperature Pulse Rate 118 H 117 H 120 H Respiratory 21 17 20 Rate Blood Pressure 95/48 95/48 95/48 O2 Sat by Pulse 94 94 95 Oximetry 06/25/21 06/25/21 06/25/21 05:30 05:36 05:40 Temperature Pulse Rate 117 H 116 H 124 H Respiratory 20 21 24 Rate Blood Pressure 95/48 95/48 95/48 O2 Sat by Pulse 95 95 95 Oximetry 06/25/21 06/25/21 06/25/21 05:46 05:50 05:56 Temperature Pulse Rate 123 H 123 H 121 H Respiratory 22 23 19 Rate Blood Pressure 95/48 95/48 95/48 O2 Sat by Pulse 95 95 95 Oximetry 06/25/21 06/25/21 06/25/21 06:00 06:06 06:10 Temperature Pulse Rate 123 H 125 H 125 H Respiratory 22 21 23 Rate Blood Pressure 110/51 110/51 110/51 O2 Sat by Pulse 94 94 95 Oximetry 06/25/21 06/25/21 06/25/21 06:16 06:20 06:26 Temperature Pulse Rate 127 H 125 H 122 H Respiratory 22 23 19 Rate Blood Pressure 110/51 110/51 110/51 O2 Sat by Pulse 95 95 94 Oximetry 06/25/21 06/25/21 06/25/21 06:30 06:36 10:00 Temperature Pulse Rate 124 H 125 H 112 H Respiratory 20 22 Rate Blood Pressure 110/51 110/51 O2 Sat by Pulse 94 94 Oximetry 06/25/21 12:18 Temperature Pulse Rate 130 H Respiratory Rate Blood Pressure 116/55 O2 Sat by Pulse Oximetry - General Appearance General appearance: frail EENT: ATNC Neck: no JVD Respiratory: Present: Clear to Ascultation Cardiology: regular Gastrointestinal: normal Integumentary: no rash Neurologic: no focal deficit Musculoskeletal: deferred - Lab 06/24/21 05:33 06/25/21 00:18 Most recent lab results Calcium 9.6 mg/dL (8.4-10.2) 06/25/21 03:45 Phosphorus 4.10 mg/dL (2.5-4.5) 06/25/21 03:45 Magnesium 2.00 mg/dL (1.7-2.3) 06/25/21 03:45 Urine Sodium 25 mmol/L 06/22/21 11:47 - Allied health notes Allied health notes reviewed: nursing Medications & Allergies - Medications Allergies/Adverse Reactions: Allergies No Known Allergies Allergy (Unverified 06/22/21 07:44) Home Medications: Home Medications Medication Instructions Recorded Confirmed Last Taken Type Atenolol/Chlorthalidone [Tenoretic 1 tab PO DAILY 06/22/21 06/22/21 Unknown Hist ory 50-25] Clopidogrel [Plavix] 75 mg PO DAILY 06/22/21 06/22/21 Unknown History Glimepiride [Amaryl] 2 mg PO QAM 06/22/21 06/22/21 Unknown History Pioglitazone [Actos] 15 mg PO DAILY 06/22/21 06/22/21 Unknown History Pravastatin [Pravachol] 40 mg PO QHS 06/22/21 06/22/21 Unknown History lisinopriL [Zestril TAB] 5 mg PO DAILY 06/22/21 06/22/21 Unknown History Active Medications: Generic Name Dose Route Start Last Admin Trade Name Freq PRN Reason Stop Dose Admin Acetaminophen 650 mg 06/22/21 22:21 06/23/21 12:13 Acetaminophen 325 Mg Tab PO 650 mg Q4H PRN Administration Pain MILD(1-3)/Fever >100.5/NAVA Clopidogrel Bisulfate 75 mg 06/23/21 10:00 06/25/21 10:24 Clopidogrel 75 Mg Tab PO Not Given DAILY [facility] Famotidine 20 mg 06/25/21 22:00 Famotidine 20 Mg/2 Ml Inj IV BID COUNTS INCLUDE 234 BEDS AT [facility] Heparin Sodium (Porcine) 3,400 unit 06/25/21 13:00 Heparin 10,000 Units/10 Ml Vial 40 unit/kg (3400 unit) 06/25/21 15:00 IV ONCE@1300 COUNTS INCLUDE 234 BEDS AT [facility] Heparin Sodium/Sodium Chloride 25,000 unit in 500 mls @ 26 mls/hr 06/25/21 13:00 Heparin/ 0.45% Nacl-25,000 Unit/500 Ml IV TITR COUNTS INCLUDE 234 BEDS AT [facility] Protocol 1,300 UNITS/HR Amiodarone HCl 900 mg/ 500 mls @ 33.333 mls/hr 06/25/21 13:00 Dextrose IV DIRECT COUNTS INCLUDE 234 BEDS AT [facility] Protocol 1 MG/MIN Insulin Human Lispro 0 unit 06/22/21 23:00 06/25/21 10:23 Insulin Lispro 100 Unit/Ml SUB-Q Not Given Q4HR COUNTS INCLUDE 234 BEDS AT [facility] Protocol Lisinopril 5 mg 06/23/21 10:00 06/25/21 10:24 Lisinopril 5 Mg Tab PO Not Given DAILY COUNTS INCLUDE 234 BEDS AT [facility] Metoclopramide HCl 10 mg 06/22/21 22:21 Metoclopramide 10 Mg/2 Ml Inj IV Q6H PRN Nausea And Vomiting Ondansetron HCl 4 mg 06/22/21 22:21 Ondansetron 4 Mg/2 Ml Inj IV Q8H PRN Nausea And Vomiting Oxycodone/Acetaminophen 1 tab 06/22/21 22:21 Oxycodone /Acetaminophen 5-325mg Tab PO Q6H PRN Pain, Moderate (4-6) Pravastatin Sodium 40 mg 06/23/21 22:00 06/24/21 23:46 Pravastatin 40 Mg Tab PO 40 mg QHS COUNTS INCLUDE 234 BEDS AT [facility] Administration Sodium Chloride 10 ml 06/23/21 10:00 06/25/21 10:25 Sodium Chloride 0.9% 10 Ml Flush Syringe IV 10 ml BID COUNTS INCLUDE 234 BEDS AT [facility] Administration Sodium Chloride 10 ml 06/22/21 22:21 Sodium Chloride 0.9% 10 Ml Flush Syringe IV PRN PRN LINE FLUSH Tolvaptan 15 mg 06/25/21 12:00 Tolvaptan 15 Mg Tab PO 06/25/21 16:00 ONCE@1200 COUNTS INCLUDE 234 BEDS AT [facility]
--- NOTE | 2021-06-25 14:17 | Progress Note ---
Assessment and Plan 65 y/o female with symptomatic hyponatremia of unknown etiology 06/25/21: Transferring to floor. Suggest remote tele. Wean FiO2 as tolerated. Will continue to follow. 06/24/21: Given Na greater than 120 and symptoms continue to improve, no objection to down grade to floor status. Suggest either tele floor or remote tele. Follow up renal recs. 1. Follow up renal recs 2. Yesterday placed patient on normal saline but now that 3% is being given will discontinue 3. q6 hour Chemistries given low chloride as well 4. Frequent neuro checks given rising na 5. Guarded prognosis. CCT 31minutes. Subjective Date of service: 06/25/21 Principal diagnosis: Hyponatremia Interval history: No acute events. Na is stable. Renal giving Samsca Objective - Constitutional Vitals: Vital Signs - 12hr 06/25/21 06/25/21 06/25/21 02:16 02:20 02:26 Temperature Pulse Rate 123 H 118 H 124 H Respiratory 20 18 20 Rate Blood Pressure 92/32 92/32 92/32 O2 Sat by Pulse 100 100 100 Oximetry 06/25/21 06/25/21 06/25/21 02:30 02:32 02:36 Temperature 98.9 F Pulse Rate 124 H 125 H Respiratory 20 21 Rate Blood Pressure 92/32 92/32 O2 Sat by Pulse 100 99 Oximetry 06/25/21 06/25/21 06/25/21 02:40 02:46 02:50 Temperature Pulse Rate 119 H 118 H 118 H Respiratory 21 21 21 Rate Blood Pressure 92/32 92/32 92/32 O2 Sat by Pulse 97 95 94 Oximetry 06/25/21 06/25/21 06/25/21 02:56 03:00 03:06 Temperature Pulse Rate 116 H 116 H 118 H Respiratory 21 21 21 Rate Blood Pressure 92/32 101/39 101/39 O2 Sat by Pulse 93 93 92 Oximetry 06/25/21 06/25/21 06/25/21 03:10 03:16 03:20 Temperature Pulse Rate 118 H 121 H 119 H Respiratory 22 23 24 Rate Blood Pressure 101/39 101/39 101/39 O2 Sat by Pulse 92 91 93 Oximetry 06/25/21 06/25/21 06/25/21 03:26 03:30 03:36 Temperature Pulse Rate 114 H 118 H 115 H Respiratory 22 23 21 Rate Blood Pressure 101/39 101/39 101/39 O2 Sat by Pulse 90 90 90 Oximetry 06/25/21 06/25/21 06/25/21 03:40 03:46 03:50 Temperature Pulse Rate 114 H 117 H 119 H Respiratory 22 24 21 Rate Blood Pressure 101/39 101/39 101/39 O2 Sat by Pulse 89 91 91 Oximetry 06/25/21 06/25/21 06/25/21 03:56 04:00 04:06 Temperature Pulse Rate 116 H 118 H 120 H Respiratory 18 21 19 Rate Blood Pressure 101/39 98/48 98/48 O2 Sat by Pulse 91 91 91 Oximetry 06/25/21 06/25/21 06/25/21 04:10 04:16 04:20 Temperature Pulse Rate 118 H 115 H 112 H Respiratory 22 21 21 Rate Blood Pressure 98/48 98/48 98/48 O2 Sat by Pulse 92 93 93 Oximetry 06/25/21 06/25/21 06/25/21 04:26 04:30 04:36 Temperature Pulse Rate 108 H 113 H 113 H Respiratory 23 21 22 Rate Blood Pressure 98/48 98/48 98/48 O2 Sat by Pulse 93 93 93 Oximetry 06/25/21 06/25/21 06/25/21 04:40 04:46 04:50 Temperature Pulse Rate 114 H 115 H 117 H Respiratory 21 21 21 Rate Blood Pressure 98/48 98/48 98/48 O2 Sat by Pulse 94 94 94 Oximetry 06/25/21 06/25/21 06/25/21 04:56 05:00 05:06 Temperature Pulse Rate 116 H 115 H 115 H Respiratory 21 22 21 Rate Blood Pressure 98/48 95/48 95/48 O2 Sat by Pulse 94 94 94 Oximetry 06/25/21 06/25/21 06/25/21 05:10 05:16 05:20 Temperature Pulse Rate 115 H 118 H 117 H Respiratory 21 21 17 Rate Blood Pressure 95/48 95/48 95/48 O2 Sat by Pulse 94 94 94 Oximetry 06/25/21 06/25/21 06/25/21 05:26 05:30 05:36 Temperature Pulse Rate 120 H 117 H 116 H Respiratory 20 20 21 Rate Blood Pressure 95/48 95/48 95/48 O2 Sat by Pulse 95 95 95 Oximetry 06/25/21 06/25/21 06/25/21 05:40 05:46 05:50 Temperature Pulse Rate 124 H 123 H 123 H Respiratory 24 22 23 Rate Blood Pressure 95/48 95/48 95/48 O2 Sat by Pulse 95 95 95 Oximetry 06/25/21 06/25/21 06/25/21 05:56 06:00 06:06 Temperature Pulse Rate 121 H 123 H 125 H Respiratory 19 22 21 Rate Blood Pressure 95/48 110/51 110/51 O2 Sat by Pulse 95 94 94 Oximetry 06/25/21 06/25/21 06/25/21 06:10 06:16 06:20 Temperature Pulse Rate 125 H 127 H 125 H Respiratory 23 22 23 Rate Blood Pressure 110/51 110/51 110/51 O2 Sat by Pulse 95 95 95 Oximetry 06/25/21 06/25/21 06/25/21 06:26 06:30 06:36 Temperature Pulse Rate 122 H 124 H 125 H Respiratory 19 20 22 Rate Blood Pressure 110/51 110/51 110/51 O2 Sat by Pulse 94 94 94 Oximetry 06/25/21 06/25/21 10:00 12:18 Temperature Pulse Rate 112 H 130 H Respiratory Rate Blood Pressure 116/55 O2 Sat by Pulse Oximetry - Labs CBC & Chem 7: 06/24/21 05:33 06/25/21 00:18 Labs: Abnormal lab results 06/24/21 06/24/21 06/24/21 Range/Units 16:25 18:16 23:49 Sodium 122 L 123 L (137-145) mmol/L Chloride 78.9 L (98-107) mmol/L Carbon Dioxide 32 H (22-30) mmol/L Creatinine 0.5 L D (0.6-1.2) mg/dL Glucose 141 H (65-100) mg/dL POC Glucose 162 H (70-105) mg/dL 06/25/21 06/25/21 06/25/21 Range/Units 00:18 03:06 06:15 Sodium 122 L (137-145) mmol/L Chloride (98-107) mmol/L Carbon Dioxide (22-30) mmol/L Creatinine (0.6-1.2) mg/dL Glucose (65-100) mg/dL POC Glucose 151 H 149 H (70-105) mg/dL 06/25/21 Range/Units 10:19 Sodium (137-145) mmol/L Chloride (98-107) mmol/L Carbon Dioxide (22-30) mmol/L Creatinine (0.6-1.2) mg/dL Glucose (65-100) mg/dL POC Glucose 152 H (70-105) mg/dL Medications & Allergies - Medications Allergies/Adverse Reactions: Allergies No Known Allergies Allergy (Unverified 06/22/21 07:44) Home Medications: Home Medications Medication Instructions Recorded Confirmed Last Taken Type Atenolol/Chlorthalidone [Tenoretic 1 tab PO DAILY 06/22/21 06/22/21 Unknown History 50-25] Clopidogrel [Plavix] 75 mg PO DAILY 06/22/21 06/22/21 Unknown History Glimepiride [Amaryl] 2 mg PO QAM 06/22/21 06/22/21 Unknown History Pioglitazone [Actos] 15 mg PO DAILY 06/22/21 06/22/21 Unknown History Pravastatin [Pravachol] 40 mg PO QHS 06/22/21 06/22/21 Unknown History lisinopriL [Zestril TAB] 5 mg PO DAILY 06/22/21 06/22/21 Unknown History Active Medications: Generic Name Dose Route Start Last Admin Trade Name Freq PRN Reason Stop Dose Admin Acetaminophen 650 mg 06/22/21 22:21 06/23/21 12:13 Acetaminophen 325 Mg Tab PO 650 mg Q4H PRN Administration Pain MILD(1-3)/Fever >100.5/NAVA Clopidogrel Bisulfate 75 mg 06/23/21 10:00 06/25/21 10:24 Clopidogrel 75 Mg Tab PO Not Given DAILY [facility] Famotidine 20 mg 06/25/21 22:00 Famotidine 20 Mg/2 Ml Inj IV BID [facility] Heparin Sodium (Porcine) 3,400 unit 06/25/21 13:00 Heparin 10,000 Units/10 Ml Vial 40 unit/kg (3400 unit) 06/25/21 15:00 IV ONCE@1300 [facility] Heparin Sodium/Sodium Chloride 25,000 unit in 500 mls @ 26 mls/hr 06/25/21 13:00 Heparin/ 0.45% Nacl-25,000 Unit/500 Ml IV TITR [facility] Protocol 1,300 UNITS/HR Amiodarone HCl 900 mg/ 500 mls @ 33.333 mls/hr 06/25/21 13:00 06/25/21 14:00 Dextrose IV 1 mg/min DIRECT [facility] 33.333 mls/hr Administration Protocol 1 MG/MIN Insulin Human Lispro 0 unit 06/22/21 23:00 06/25/21 10:23 Insulin Lispro 100 Unit/Ml SUB-Q Not Given Q4HR [facility] Protocol Lisinopril 5 mg 06/23/21 10:00 06/25/21 10:24 Lisinopril 5 Mg Tab PO Not Given DAILY [facility] Metoclopramide HCl 10 mg 06/22/21 22:21 Metoclopramide 10 Mg/2 Ml Inj IV Q6H PRN Nausea And Vomiting Ondansetron HCl 4 mg 06/22/21 22:21 Ondansetron 4 Mg/2 Ml Inj IV Q8H PRN Nausea And Vomiting Oxycodone/Acetaminophen 1 tab 06/22/21 22:21 Oxycodone /Acetaminophen 5-325mg Tab PO Q6H PRN Pain, Moderate (4-6) Pravastatin Sodium 40 mg 06/23/21 22:00 06/24/21 23:46 Pravastatin 40 Mg Tab PO 40 mg QHS [facility] Administration Sodium Chloride 10 ml 06/23/21 10:00 06/25/21 10:25 Sodium Chloride 0.9% 10 Ml Flush Syringe IV 10 ml BID [facility] Administration Sodium Chloride 10 ml 06/22/21 22:21 Sodium Chloride 0.9% 10 Ml Flush Syringe IV PRN PRN LINE FLUSH Tolvaptan 15 mg 06/25/21 12:00 Tolvaptan 15 Mg Tab PO 06/25/21 16:00 ONCE@1200 [facility] HEART Score - HEART Score Troponin: Troponin T < 0.010 ng/mL (0.00-0.029) 06/22/21 07:58
[2021-06-25 14:40] LABS: Hematocrit 41.6 % (30.3-42.9); Hemoglobin 13.2 gm/dl (10.1-14.3)
[2021-06-25 14:46] LABS: BUN/Creatinine Ratio 21; Blood Urea Nitrogen 19 mg/dL (7-17); Calcium 9.5 mg/dL (8.4-10.2); Hemolysis Index 13
[2021-06-25 14:49] LABS: INR 0.85 (0.87-1.13)
--- NOTE | 2021-06-25 15:46 | XRay Report ---
XR abdomen 1V ap INDICATION: ng tube placement. COMPARISON: None available. FINDINGS: The tip of the esophagogastric tube projects over the distal esophagus and is coiled. Repositioning i s recommended.. Signer Name: Moses Ken MD Signed: 06/25/2021 3:42 PM Workstation Name: [id number]
--- NOTE | 2021-06-25 16:54 | XRay Report ---
XR abdomen 1V ap INDICATION: NG tube placement COMPARISON: None. FINDINGS/IMPRESSION: Enteric tube terminates in the distal stomach. Side-port is beneath the GE junction. Signer Name: Andrea Parker MD Signed: 06/25/2021 4:49 PM Workstation Name: [id number]
[2021-06-25] MEDS: HEPARIN/ 0.45% NACL DRIP 25,000 UNIT/500 ML BAG IV SCH (16:57)
--- NOTE | 2021-06-25 19:22 | Progress Note ---
Assessment and Plan Assessment and plan: This is a 55-year-old female with HTN, tobacco abuse and diabetes mellitus admitted for severe hyponatremia, hypochloremia and hypokalemia, acute proximal respiratory failure, mini seizure-like activity and urinary tract infection. Neuro: Acute metabolic encephalopathy -Reported seizure-like activity and admitted by family however this could be related to her severe hyponatremia -No witnessed seizure activity after admit -Avoid delirium -S/p 3% saline -Reorientation ICU -Maintain sleep-wake cycle -As needed analgesia Cardio: Atrial fibrillation, h/o HTN -Cardiology consulted, appreciate recommendations -Amiodarone drip -Echocardiogram pending -Blood pressure monitoring protocol -Restarted home lisinopril, Plavix, heparin drip for anticoagulation and statin Respiratory: Acute hypoxic respiratory failure -Currently on nonrebreather -Pulmonary hygiene -Supplemental oxygen as needed -SPO2 monitoring GI: NAD -24 hours -150 -Cradiac diet -NGT placed d/t AMS -NTR consult for TF -BR: colace -PPI : Severe hyponatremia (improving), severe hypokalemia (Resolved), severe hypochloremia (resolved) -Nephrology consulted, patient recommendations -S/p 3% saline -Samsca -Strict intake and output -Trend BMP Heme: Leukocytosis -Trend CBC -Transfuse hemoglobin less than 7 -Heparin drip -SCDs to bilateral lower extremity while in bed ID: Urinary tract infection, Community-acquired pneumonia -Antibiotic therapy with rocephin and azithro -Monitor WBC and temp curve -UA with pyuria -CXR on admit with PNA -UC and BC NGTD Endo: h/o DM type II -SSI -Accu-Cheks AC at bedtime -Avoid hypoglycemia -Hemoglobin A1c 6.6 The high probability of a clinically significant, sudden or life threatening de terioration of the [renal] system(s) required my full and direct attention, intervention and personal management. The aggregate critical care time was [60] minutes. This time is in addition to time spent performing reported procedures but includes the following: [x] Data Review and interpretation [x] Patient assessment and monitoring of vital signs [x] Documentation [x] Medication orders and management Disposition Plan: transfer to tele Total Time Spent with Patient (Minutes): 60 History Interval history: This is a 55-year-old female with hypertension, atrial fibrillation, tobacco abuse and diabetes mellitus who presents the emergency department on 06/22 for severe weakness, altered mental status and witnessed seizure-like activity. CXR showed left basilar airspace opacity and work-up in the emergency department revealed severe hyponatremia, hypokalemia, severe hypochloremia, metabolic a lkalosis acute hypoxic respiratory failure, witnessed seizure activity and urinary tract infection. Patient was admitted to the hospital service with consults to nephrology and CCM. 06/23/2021 Patient symptomatically better Sodium is 117 06/24: Sodium slightly better however we will still admit to ICU, no acute vents overnight 06/25: Patient noted to be in atrial fibrillation upon transfer to ICU and stat ECG revealed atrial fibrillation. Cardiology was consulted. Patient restarted on home beta-jeimy and was eventually changed to amiodarone. She was started on heparin drip. Patient will be transferred to the telemetry floor. Hospitalist Physical - Constitutional Vitals: Temp Pulse Resp BP Pulse Ox 98.9 F 88 22 139/55 94 06/25/21 02:32 06/25/21 17:12 06/25/21 06:36 06/25/21 17:12 06/25/21 06:36 General appearance: Present: no acute distress - EENT Eyes: Present: PERRL, EOM intact ENT: hearing intact, clear oral mucosa, dentition normal - Neck Neck: Present: normal ROM - Respiratory Respiratory effort: normal Respiratory: bilateral: diminished - Cardiovascular Rhythm: regular Heart Sounds: Present: S1 & S2. Absent: systolic murmur, diastolic murmur - Extremities Extremities: no ischemia, pulses intact, pulses symmetrical, No edema, normal temperature, normal color Peripheral Pulses: within normal limits - Abdominal General gastrointestinal: soft, non-tender, non-distended, normal bowel sounds - Integumentary Integumentary: Present: warm, dry - Neurologic Neurologic: CNII-XII intact, no focal deficits, moves all extremities - Allied Health Allied health notes reviewed: nursing, RT, social work HEART Score - HEART Score Troponin: Troponin T < 0.010 ng/mL (0.00-0.029) 06/22/21 07:58 Results - Labs CBC & Chem 7: 06/25/21 13:42 06/25/21 13:42 Labs: Laboratory Last Values WBC 12.0 K/mm3 (4.5-11.0) H 06/24/21 05:33 RBC 4.54 M/mm3 (3.65-5.03) 06/24/21 05:33 Hgb 13.2 gm/dl (10.1-14.3) 06/25/21 13:42 Hct 41.6 % (30.3-42.9) 06/25/21 13:42 MCV 91 fl (79-97) 06/24/21 05:33 MCH 29 pg (28-32) 06/24/21 05:33 MCHC 32 % (30-34) 06/24/21 05:33 RDW 13.6 % (13.2-15.2) 06/24/21 05:33 Plt Count 380 K/mm3 (140-440) 06/25/21 13:42 Lymph % (Auto) 5.8 % (13.4-35.0) L 06/23/21 05:29 [place] % (Auto) 6.9 % (0.0-7.3) 06/23/21 05:29 Eos % (Auto) 0.1 % (0.0-4.3) 06/23/21 05:29 Baso % (Auto) 0.1 % (0.0-1.8) 06/23/21 05:29 Lymph # (Auto) 0.7 K/mm3 (1.2-5.4) L 06/23/21 05:29 [place] # (Auto) 0.9 K/mm3 (0.0-0.8) H 06/23/21 05:29 Eos # (Auto) 0.0 K/mm3 (0.0-0.4) 06/23/21 05:29 Baso # (Auto) 0.0 K/mm3 (0.0-0.1) 06/23/21 05:29 Add Manual Diff Complete 06/24/21 05:33 Total Counted 100 06/24/21 05:33 Seg Neutrophils % 87.1 % (40.0-70.0) H 06/23/21 05:29 Seg Neuts % (Manual) 95.0 % (40.0-70.0) H 06/24/21 05:33 Lymphocytes % (Manual) 2.0 % (13.4-35.0) L 06/24/21 05:33 Monocytes % (Manual) 2.0 % (0.0-7.3) 06/24/21 05:33 Metamyelocytes % 1.0 % 06/24/21 05:33 Nucleated RBC % Not Reportable 06/24/21 05:33 Seg Neutrophils # 10.8 K/mm3 (1.8-7.7) H 06/23/21 05:29 Seg Neutrophils # Man 11.4 K/mm3 (1.8-7.7) H 06/24/21 05:33 Band Neutrophils # 0.0 K/mm3 06/24/21 05:33 Lymphocytes # (Manual) 0.2 K/mm3 (1.2-5.4) L 06/24/21 05:33 Abs React Lymphs (Man) 0.0 K/mm3 06/24/21 05:33 Monocytes # (Manual) 0.2 K/mm3 (0.0-0.8) 06/24/21 05:33 Eosinophils # (Manual) 0.0 K/mm3 (0.0-0.4) 06/24/21 05:33 Basophils # (Manual) 0.0 K/mm3 (0.0-0.1) 06/24/21 05:33 Metamyelocytes # 0.1 K/mm3 06/24/21 05:33 Myelocytes # 0.0 K/mm3 06/24/21 05:33 Promyelocytes # 0.0 K/mm3 06/24/21 05:33 Blast Cells # 0.0 K/mm3 06/24/21 05:33 WBC Morphology Not Reportable 06/24/21 05:33 Hypersegmented Neuts Not Reportable 06/24/21 05:33 Hyposegmented Neuts Not Reportable 06/24/21 05:33 Hypogranular Neuts Not Reportable 06/24/21 05:33 Smudge Cells Not Reportable 06/24/21 05:33 Toxic Granulation Not Reportable 06/24/21 05:33 Toxic Vacuolation Not Reportable 06/24/21 05:33 Dohle Bodies Not Reportable 06/24/21 05:33 Pelger-Huet Anomaly Not Reportable 06/24/21 05:33 Otf Rods Not Reportable 06/24/21 05:33 Platelet Estimate Consistent w auto 06/24/21 05:33 Clumped Platelets Not Reportable 06/24/21 05:33 Plt Clumps, EDTA Not Reportable 06/24/21 05:33 Large Platelets Not Reportable 06/24/21 05:33 Giant Platelets Not Reportable 06/24/21 05:33 Platelet Satelliting Not Reportable 06/24/21 05:33 Plt Morphology Comment Not Reportable 06/24/21 05:33 RBC Morphology Not Reportable 06/24/21 05:33 Dimorphic RBCs Not Reportable 06/24/21 05:33 Polychromasia Few 06/24/21 05:33 Hypochromasia Not Reportable 06/24/21 05:33 Poikilocytosis 1+ 06/24/21 05:33 Anisocytosis 1+ 06/24/21 05:33 Microcytosis Not Reportable 06/24/21 05:33 Macrocytosis Not Reportable 06/24/21 05:33 Spherocytes Not Reportable 06/24/21 05:33 Pappenheimer Bodies Not Reportable 06/24/21 05:33 Sickle Cells Not Reportable 06/24/21 05:33 Target Cells Not Reportable 06/24/21 05:33 Tear Drop Cells Not Reportable 06/24/21 05:33 Ovalocytes Not Reportable 06/24/21 05:33 Helmet Cells Not Reportable 06/24/21 05:33 [place] Bodies Not Reportable 06/24/21 05:33 [place] Rings Not Reportable 06/24/21 05:33 William Cells Not Reportable 06/24/21 05:33 Bite Cells Not Reportable 06/24/21 05:33 Crenated Cell Not Reportable 06/24/21 05:33 Elliptocytes Few 06/24/21 05:33 Acanthocytes (Spur) Few 06/24/21 05:33 Rouleaux Few 06/24/21 05:33 Hemoglobin C Crystals Not Reportable 06/24/21 05:33 Schistocytes Not Reportable 06/24/21 05:33 Malaria parasites Not Reportable 06/24/21 05:33 Stvee Bodies Not Reportable 06/24/21 05:33 Hem Pathologist Commnt No 06/24/21 05:33 PT 12.6 Sec. (12.2-14.9) 06/25/21 13:42 INR 0.85 (0.87-1.13) L 12/30/21 13:42 APTT 31.0 Sec. (24.2-36.6) 06/25/21 13:42 Thrombin Time 15.9 Sec. (15.1-19.6) 06/22/21 07:58 Heparin Anti-Xa Level < 0.10 U.I./ml (0.3-0.7) L 06/25/21 15:13 Sodium 123 mmol/L (137-145) L 06/25/21 13:42 Potassium 4.3 mmol/L (3.6-5.0) 06/25/21 13:42 Chloride 78.5 mmol/L (98-107) L 06/25/21 13:42 Carbon Dioxide 32 mmol/L (22-30) H 06/25/21 13:42 Anion Gap 17 mmol/L 06/25/21 13:42 BUN 19 mg/dL (7-17) H 06/25/21 13:42 Creatinine 0.9 mg/dL (0.6-1.2) D 06/25/21 13:42 Estimated GFR > 60 ml/min 06/25/21 13:42 BUN/Creatinine Ratio 21 % 06/25/21 13:42 Glucose 193 mg/dL (65-100) H 06/25/21 13:42 POC Glucose 221 mg/dL (70-105) H 06/25/21 15:21 Hemoglobin A1c 6.6 % (4-6) H 06/23/21 05:29 Osmolality 240 Mosm/kg 06/22/21 23:24 Lactic Acid 1.20 mmol/L (0.7-2.0) 06/22/21 11:28 Uric Acid 3.2 mg/dL (3.5-7.6) L 06/23/21 05:29 Calcium 9.5 mg/dL (8.4-10.2) 06/25/21 13:42 Phosphorus 4.10 mg/dL (2.5-4.5) 06/25/21 03:45 Magnesium 2.00 mg/dL (1.7-2.3) 06/25/21 03:45 Ferritin 102.1 ng/mL (10.0-200.0) 06/22/21 08:56 Lactate Dehydrogenase 220 units/L (91-180) H 06/22/21 08:56 Troponin T < 0.010 ng/mL (0.00-0.029) 06/22/21 07:58 C-Reactive Protein 5.40 mg/dL (0.00-1.30) H 06/22/21 08:56 Procalcitonin < 0.05 ng/mL (<0.15) 06/22/21 08:56 TSH 1.070 mlU/mL (0.270-4.200) 06/22/21 07:58 Urine Color Yellow (Yellow) 06/22/21 11:47 Urine Turbidity Slightly-cloudy (Clear) 06/22/21 11:47 Urine pH 6.0 (5.0-7.0) 06/22/21 11:47 Ur Specific Eldred 1.021 (1.003-1.030) 06/22/21 11:47 Urine Protein >500 mg/dL (Negative) 06/22/21 11:47 Urine Glucose (UA) >=500 mg/dL (Negative) 06/22/21 11:47 Urine Ketones 80 mg/dL (Negative) 06/22/21 11:47 Urine Blood Mod (Negative) 06/22/21 11:47 Urine Nitrite Neg (Negative) 06/22/21 11:47 Urine Bilirubin Neg (Negative) 06/22/21 11:47 Urine Urobilinogen < 2.0 mg/dL (<2.0) 06/22/21 11:47 Ur Leukocyte Esterase Neg (Negative) 06/22/21 11:47 Urine WBC (Auto) 11.0 /HPF (0.0-6.0) H 06/22/21 11:47 Urine RBC (Auto) 3.0 /HPF (0.0-6.0) 06/22/21 11:47 U Epithel Cells (Auto) 3.0 /HPF (0-13.0) 06/22/21 11:47 Urine Bacteria (Auto) 1+ /HPF (Negative) 06/22/21 11:47 Ur Transition Epith Cell 1 /HPF 06/22/21 11:47 Hyaline Casts 5 /LPF 06/22/21 11:47 Urine Mucus Few /HPF 06/22/21 11:47 Urine Yeast (Budding) Few /HPF 06/22/21 11:47 Urine Osmolality 571 Mosm/kg 06/22/21 11:47 Urine Sodium 25 mmol/L 06/22/21 11:47 Coronavirus (PCR) Negative (Negative) 06/22/21 Unknown Microbiology: Microbiology 06/22/21 08:56 Peripheral/Venous Blood Culture - Preliminary NO GROWTH AFTER 72 HOURS 06/22/21 08:56 Peripheral/Venous Blood Culture - Preliminary NO GROWTH AFTER 72 HOURS Active Medications - Current Medications Current Medications: Generic Name Dose Route Start Last Admin Trade Name Freq PRN Reason Stop Dose Admin Acetaminophen 650 mg 06/22/21 22:21 06/23/21 12:13 Acetaminophen 325 Mg Tab PO 650 mg Q4H PRN Administration Pain MILD(1-3)/Fever >100.5/NAVA Clopidogrel Bisulfate 75 mg 06/23/21 10:00 06/25/21 17:00 Clopidogrel 75 Mg Tab PO 75 mg DAILY JUDY Administration Docusate Sodium 100 mg 06/25/21 22:00 Docusate Sodium 100 Mg/10 Ml Oral Liqd PO BID JUDY Famotidine 20 mg 06/25/21 22:00 Famotidine 20 Mg/2 Ml Inj IV BID [facility] Heparin Sodium/Sodium Chloride 25,000 unit in 500 mls @ 26 mls/hr 06/25/21 13 :00 06/25/21 16:57 Heparin/ 0.45% Nacl-25,000 Unit/500 Ml IV 1,300 units/hr TITR JUDY 26 mls/hr Administration Protocol 1,300 UNITS/HR Amiodarone HCl 900 mg/ 500 mls @ 33.333 mls/hr 06/25/21 13:00 06/25/21 14:00 Dextrose IV 1 mg/min DIRECT JUDY 33.333 mls/hr Administration Protocol 1 MG/MIN Insulin Human Lispro 0 unit 06/22/21 23:00 06/25/21 10:23 Insulin Lispro 100 Unit/Ml SUB-Q Not Given Q4HR [facility] Protocol Lisinopril 5 mg 06/23/21 10:00 06/25/21 17:12 Lisinopril 5 Mg Tab PO 5 mg DAILY JUDY Administration Metoclopramide HCl 10 mg 06/22/21 22:21 Metoclopramide 10 Mg/2 Ml Inj IV Q6H PRN Nausea And Vomiting Ondansetron HCl 4 mg 06/22/21 22:21 Ondansetron 4 Mg/2 Ml Inj IV Q8H PRN Nausea And Vomiting Oxycodone/Acetaminophen 1 tab 06/22/21 22:21 Oxycodone /Acetaminophen 5-325mg Tab PO Q6H PRN Pain, Moderate (4-6) Pravastatin Sodium 40 mg 06/23/21 22:00 06/24/21 23:46 Pravastatin 40 Mg Tab PO 40 mg QHS JUDY Administration Sodium Chloride 10 ml 06/23/21 10:00 06/25/21 10:25 Sodium Chloride 0.9% 10 Ml Flush Syringe IV 10 ml BID JUDY Administration Sodium Chloride 10 ml 06/22/21 22:21 Sodium Chloride 0.9% 10 Ml Flush Syringe IV PRN PRN LINE FLUSH
[2021-06-25] MEDS: PRAVASTATIN 40 MG TAB PO SCH (21:21)
[2021-06-25] MEDS: DOCUSATE SODIUM 100 MG/10 ML ORAL LIQD PO SCH (21:21)
--- NOTE | 2021-06-25 22:22 | Event Note ---
Date: 06/25/21 Patient developed acute respiratory failure, subsequently patient was intubated by the respiratory therapist. Patient is doing better. We repeat the ABG and chest x-ray Patient developed bradycardia. Patient is hypotensive. Systolic blood pressure is around 54. Patient was given 1 L of normal saline bolus. Also patient was put on Levophed. Patient heart rate is now 104 and BP 134/74. We will closely monitor the patient. We also order CBC BMP and lactic acid.
[2021-06-25] MEDS ORDERED: NORepinephrine/NS 8 MG-250 ML 8 MG/250 ML INFUS..BTL IV ONE (22:33)
[2021-06-25] MEDS ORDERED: SODIUM CHLORIDE 0.9% 1000 ML 1,000 ML IV ONE (22:44)
--- NOTE | 2021-06-25 22:46 | XRay Report ---
CHEST 1 VIEW 06/25/2021 10:25 PM INDICATION / CLINICAL INFORMATION: ETT placement. COMPARISON: 06/24/2021 FINDINGS: SUPPORT DEVICES: There is an endotracheal tube which terminates 6.1 cm the marciano. There is no enteri c tube which terminates distal to the field of view. HEART / MEDIASTINUM: Stable. LUNGS / PLEURA: Slight interval improvement in bibasilar airspace disease. No pneumothorax. ADDITIONAL FINDINGS: No significant additional findings. IMPRESSION: 1. Endotracheal tube in expected position. 2. Slight interval improvement of airspace disease Signer Name: Aaron Campbell DO Signed: 06/25/2021 10:41 PM Workstation Name: [id number]
[2021-06-25 23:26] LABS: Hematocrit 37.3 % (30.3-42.9); Hemoglobin 11.8 gm/dl (10.1-14.3); Mean Corpuscular HGB Conc 32 % (30-34); Mean Corpuscular Volume 93 fl (79-97); Platelet Count 374 K/mm3 (140-440); Red Cell Distribution Width 13.7 % (13.2-15.2)
[2021-06-25 23:28] LABS: Calcium 8.2 mg/dL (8.4-10.2)
[2021-06-25] MEDS: NORepinephrine/NS 8 MG-250 ML 8 MG/250 ML INFUS..BTL IV SCH (23:31)
[2021-06-26] MEDS ORDERED: SODIUM CHLORIDE 0.9% 1000 ML 1,000 ML IV SCH (00:30)
[2021-06-26] MEDS ORDERED: fentaNYL 100 MCG/2 ML INJ IV ONE (00:41)
--- NOTE | 2021-06-26 01:17 | XRay Report ---
CHEST 1 VIEW 06/26/2021 12:53 AM INDICATION / CLINICAL INFORMATION: Left IJ TLC. COMPARISON: 06/25/2021 FINDINGS: SUPPORT DEVICES: Interval placement of a left IJ central venous catheter with the tip in the mid SVC. Unchanged positioning of endotracheal tube. Redemonstrated enteric tube which terminates distal to t he field of view. HEART / MEDIASTINUM: No significant abnormality. LUNGS / PLEURA: No significant pulmonary or pleural abnormality. No pneumothorax. ADDITIONAL FINDINGS: No significant additional findings. IMPRESSION: 1. Central line in expected position. Signer Name: Aaron Campbell DO Signed: 06/26/2021 1:13 AM Workstation Name: [id number]
--- NOTE | 2021-06-26 01:23 | Progress Note ---
Assessment and Plan 65 y/o female with symptomatic hyponatremia of unknown etiology 06/26/21: Transfer on hold. Follow up repeat ABG. Wean vasopressors for maps >65. Call renal in regards to Na since no real improvement with samsaca. Place nicholson. If 3% is needed again, please give through central line. 06/25/21: Transferring to floor. Suggest remote tele. Wean FiO2 as tolerated. Will continue to follow. 06/24/21: Given Na greater than 120 and symptoms continue to improve, no objection to down grade to floor status. Suggest either tele floor or remote tele. Follow up renal recs. 1. Follow up renal recs 2. Yesterday placed patient on normal saline but now that 3% is being given will discontinue 3. q6 hour Chemistries given low chloride as well 4. Frequent neuro checks given rising na 5. Guarded prognosis. CCT 31minutes. Subjective Date of service: 06/26/21 Principal diagnosis: Hyponatremia Interval history: Called by RT earlier this evening for altered mental status change. ABG showed ph of 7.08 and CO2 >100. Not a candiate for bipap so gave the order to intubate. Patient became hypotensive and bradycardic post intubation. Labs stable so placed left IJ central line for vasopressors going through a peripheral line. Objective Vital Signs - 12hr 06/25/21 06/25/21 06/25/21 17:12 20:00 22:25 Temperature 98.2 F Pulse Rate 88 93 H Pulse Rate [ 96 H From Monitor] Respiratory 17 Rate Blood Pressure 139/55 47/26 O2 Sat by Pulse 90 100 Oximetry CBC and BMP: 06/25/21 22:55 06/25/21 22:55 ABG, PT/INR, D-dimer: PT/INR, D-dimer PT 12.6 Sec. (12.2-14.9) 06/25/21 13:42 INR 0.85 (0.87-1.13) L 06/25/21 13:42 Abnormal lab findings: Abnormal Labs 06/22/21 06/22/21 06/22/21 07:58 07:58 07:58 WBC 13.0 H MCHC 35 H Lymph % (Auto) 6.3 L [place] % (Auto) 7.4 H Lymph # (Auto) 0.8 L [place] # (Auto) 1.0 H Seg Neutrophils % 85.5 H Seg Neuts % (Manual) Lymphocytes % (Manual) Seg Neutrophils # 11.1 H Seg Neutrophils # Man Lymphocytes # (Manual) PT 11.8 L INR 0.78 L Heparin Anti-Xa Level Sodium 107 L* Potassium 2.7 L* Chloride 60.0 L Carbon Dioxide 32 H BUN Creatinine 0.5 L Glucose 177 H POC Glucose Hemoglobin A1c Lactic Acid Uric Acid Calcium Phosphorus Magnesium Lactate Dehydrogenase C-Reactive Protein Urine WBC (Auto) 06/22/21 06/22/21 06/22/21 08:56 08:56 08:56 WBC MCHC Lymph % (Auto) [place] % (Auto) Lymph # (Auto) [place] # (Auto) Seg Neutrophils % Seg Neuts % (Manual) Lymphocytes % (Manual) Seg Neutrophils # Seg Neutrophils # Man Lymphocytes # (Manual) PT INR Heparin Anti-Xa Level Sodium 104 L* Potassium 3.2 L Chloride 60.0 L Carbon Dioxide BUN Creatinine 0.4 L Glucose 179 H 181 H POC Glucose Hemoglobin A1c Lactic Acid 2.10 H* Uric Acid Calcium Phosphorus Magnesium Lactate Dehydrogenase 220 H C-Reactive Protein 5.40 H Urine WBC (Auto) 06/22/21 06/22/21 06/22/21 11:47 14:20 18:19 WBC MCHC Lymph % (Auto) [place] % (Auto) Lymph # (Auto) [place] # (Auto) Seg Neutrophils % Seg Neuts % (Manual) Lymphocytes % (Manual) Seg Neutrophils # Seg Neutrophils # Man Lymphocytes # (Manual) PT INR Heparin Anti-Xa Level Sodium 112 L* D 112 L* Potassium 2.7 L* 2.7 L* Chloride 65.2 L 65.8 L Carbon Dioxide 32 H 31 H BUN Creatinine 0.4 L 0.3 L Glucose 119 H POC Glucose Hemoglobin A1c Lactic Acid Uric Acid Calcium Phosphorus Magnesium Lactate Dehydrogenase C-Reactive Protein Urine WBC (Auto) 11.0 H 06/23/21 06/23/21 06/23/21 05:29 05:29 05:29 WBC 12.4 H MCHC Lymph % (Auto) 5.8 L [place] % (Auto) Lymph # (Auto) 0.7 L [place] # (Auto) 0.9 H Seg Neutrophils % 87.1 H Seg Neuts % (Manual) Lymphocytes % (Manual) Seg Neutrophils # 10.8 H Seg Neutrophils # Man Lymphocytes # (Manual) PT INR Heparin Anti-Xa Level Sodium 112 L* Potassium 2.6 L* Chloride 67.5 L Carbon Dioxide 33 H BUN Creatinine 0.4 L Glucose POC Glucose Hemoglobin A1c 6.6 H Lactic Acid Uric Acid 3.2 L Calcium Phosphorus Magnesium Lactate Dehydrogenase C-Reactive Protein Urine WBC (Auto) 06/23/21 06/23/21 06/23/21 05:29 12:11 17:43 WBC MCHC Lymph % (Auto) [place] % (Auto) Lymph # (Auto) [place] # (Auto) Seg Neutrophils % Seg Neuts % (Manual) Lymphocytes % (Manual) Seg Neutrophils # Seg Neutrophils # Man Lymphocytes # (Manual) PT INR Heparin Anti-Xa Level Sodium 113 L* 117 L* Potassium 2.6 L* Chloride 69.7 L 74.9 L Carbon Dioxide BUN Creatinine 0.4 L 0.3 L Glucose 106 H 125 H POC Glucose Hemoglobin A1c Lactic Acid Uric Acid Calcium Phosphorus Magnesium 1.50 L Lactate Dehydrogenase C-Reactive Protein Urine WBC (Auto) 06/24/21 06/24/21 06/24/21 00:43 00:45 05:33 WBC MCHC Lymph % (Auto) [place] % (Auto) Lymph # (Auto) [place] # (Auto) Seg Neutrophils % Seg Neuts % (Manual) Lymphocytes % (Manual) Seg Neutrophils # Seg Neutrophils # Man Lymphocytes # (Manual) PT INR Heparin Anti-Xa Level Sodium 119 L* 122 L Potassium Chloride 79.6 L 80.2 L Carbon Dioxide 32 H 31 H BUN Creatinine 0.4 L 0.3 L Glucose 116 H 143 H POC Glucose 117 H Hemoglobin A1c Lactic Acid Uric Acid Calcium Phosphorus Magnesium Lactate Dehydrogenase C-Reactive Protein Urine WBC (Auto) 06/24/21 06/24/21 06/24/21 05:33 06:11 16:25 WBC 12.0 H MCHC Lymph % (Auto) [place] % (Auto) Lymph # (Auto) [place] # (Auto) Seg Neutrophils % Seg Neuts % (Manual) 95.0 H Lymphocytes % (Manual) 2.0 L Seg Neutrophils # Seg Neutrophils # Man 11.4 H Lymphocytes # (Manual) 0.2 L PT INR Heparin Anti-Xa Level Sodium 122 L Potassium Chloride 78.9 L Carbon Dioxide 32 H BUN Creatinine 0.5 L D Glucose 141 H POC Glucose 141 H Hemoglobin A1c Lactic Acid Uric Acid Calcium Phosphorus Magnesium Lactate Dehydrogenase C-Reactive Protein Urine WBC (Auto) 06/24/21 06/24/21 06/25/21 18:16 23:49 00:18 WBC MCHC Lymph % (Auto) [place] % (Auto) Lymph # (Auto) [place] # (Auto) Seg Neutrophils % Seg Neuts % (Manual) Lymphocytes % (Manual) Seg Neutrophils # Seg Neutrophils # Man Lymphocytes # (Manual) PT INR Heparin Anti-Xa Level Sodium 123 L 122 L Potassium Chloride Carbon Dioxide BUN Creatinine Glucose POC Glucose 162 H Hemoglobin A1c Lactic Acid Uric Acid Calcium Phosphorus Magnesium Lactate Dehydrogenase C-Reactive Protein Urine WBC (Auto) 06/25/21 06/25/21 06/25/21 03:06 06:15 10:19 WBC MCHC Lymph % (Auto) [place] % (Auto) Lymph # (Auto) [place] # (Auto) Seg Neutrophils % Seg Neuts % (Manual) Lymphocytes % (Manual) Seg Neutrophils # Seg Neutrophils # Man Lymphocytes # (Manual) PT INR Heparin Anti-Xa Level Sodium Potassium Chloride Carbon Dioxide BUN Creatinine Glucose POC Glucose 151 H 149 H 152 H Hemoglobin A1c Lactic Acid Uric Acid Calcium Phosphorus Magnesium Lactate Dehydrogenase C-Reactive Protein Urine WBC (Auto) 06/25/21 06/25/21 06/25/21 13:42 13:42 15:13 WBC MCHC Lymph % (Auto) [place] % (Auto) Lymph # (Auto) [place] # (Auto) Seg Neutrophils % Seg Neuts % (Manual) Lymphocytes % (Manual) Seg Neutrophils # Seg Neutrophils # Man Lymphocytes # (Manual) PT INR 0.85 L Heparin Anti-Xa Level < 0.10 L Sodium 123 L Potassium Chloride 78.5 L Carbon Dioxide 32 H BUN 19 H Creatinine Glucose 193 H POC Glucose Hemoglobin A1c Lactic Acid Uric Acid Calcium Phosphorus Magnesium Lactate Dehydrogenase C-Reactive Protein Urine WBC (Auto) 06/25/21 06/25/21 06/25/21 15:21 19:49 22:55 WBC 14.8 H MCHC Lymph % (Auto) [place] % (Auto) Lymph # (Auto) [place] # (Auto) Seg Neutrophils % Seg Neuts % (Manual) Lymphocytes % (Manual) Seg Neutrophils # Seg Neutrophils # Man Lymphocytes # (Manual) PT INR Heparin Anti-Xa Level Sodium Potassium Chloride Carbon Dioxide BUN Creatinine Glucose POC Glucose 221 H 194 H Hemoglobin A1c Lactic Acid Uric Acid Calcium Phosphorus Magnesium Lactate Dehydrogenase C-Reactive Protein Urine WBC (Auto) 06/25/21 22:55 WBC MCHC Lymph % (Auto) [place] % (Auto) Lymph # (Auto) [place] # (Auto) Seg Neutrophils % Seg Neuts % (Manual) Lymphocytes % (Manual) Seg Neutrophils # Seg Neutrophils # Man Lymphocytes # (Manual) PT INR Heparin Anti-Xa Level Sodium 124 L Potassium Chloride 82.9 L Carbon Dioxide BUN 22 H Creatinine Glucose 226 H POC Glucose Hemoglobin A1c Lactic Acid Uric Acid Calcium 8.2 L Phosphorus 4.70 H Magnesium Lactate Dehydrogenase C-Reactive Protein Urine WBC (Auto) Allied health notes reviewed: nursing
[2021-06-26] MEDS: SODIUM CHLORIDE 0.9% 1000 ML 1,000 ML IV SCH ×3 (01:30→20:18)
[2021-06-26 01:54] LABS: ABG Base Excess 3.3 mmol/L (-2.0-3.0); ABG Methemoglobin 0.5 % (0.0-1.5); ABG Oxygen Saturation 99.6 % (95.0-99.0); ABG PCO2 54.1 mm Hg; ABG PH 7.361 pH Units (7.350-7.450)
[2021-06-26 01:55] LABS: ABG PO2 439.6 mm Hg (80.0-90.0)
[2021-06-26] MEDS ORDERED: MIDAZOLAM 2 MG/2 ML INJ IV PRN ×2 (02:53→04:27)
[2021-06-26 02:57] LABS: Total Cells Counted 100
[2021-06-26] MEDS ORDERED: fentaNYL 100 MCG/2 ML INJ IV PRN ×2 (02:57→04:27)
[2021-06-26 02:58] LABS: Platelet Estimate Consistent w Auto; RBC Morphology Normal
[2021-06-26] MEDS: NORepinephrine/NS 8 MG-250 ML 8 MG/250 ML INFUS..BTL IV SCH ×2 (03:43→09:15)
[2021-06-26] MEDS: INSULIN LISPRO 100 UNIT/ML SUB-Q SCH ×5 (03:44→23:59)
[2021-06-26] MEDS ORDERED: MIDAZOLAM 100 MG in SODIUM CHLORIDE 0.9% 80 ML IV SCH (05:00)
[2021-06-26 05:17] LABS: Alanine Aminotransferase 20 units/L (7-56); Albumin 2.8 g/dL (3.9-5); BUN/Creatinine Ratio 24; Blood Urea Nitrogen 26 mg/dL (7-17); Calcium 9.2 mg/dL (8.4-10.2); Hemolysis Index 7
[2021-06-26 05:21] LABS: Bilirubin,Direct < 0.2 mg/dL (0-0.2)
[2021-06-26] MEDS: CLOPIDOGREL 75 MG TAB PO SCH (09:14)
[2021-06-26] MEDS: FAMOTIDINE 20 MG/2 ML INJ IV SCH ×2 (09:14→22:24)
[2021-06-26] MEDS: DOCUSATE SODIUM 100 MG/10 ML ORAL LIQD PO SCH ×2 (09:14→22:24)
[2021-06-26] MEDS: LISINOPRIL 5 MG TAB PO SCH (09:22)
[2021-06-26] MEDS ORDERED: VANCOMYCIN 1,250 MG in SODIUM CHLORIDE 0.9% 500 ML 500 ML IV ONE (09:50)
[2021-06-26] MEDS ORDERED: VANCOMYCIN PHARMACY TO DOSE IV SCH (10:00)
[2021-06-26] MEDS: fentaNYL DRIP Premix 2,000 MCG/100 ML BAG IV SCH (10:08)
[2021-06-26 10:21] LABS: ABG Base Excess 1.9 mmol/L (-2.0-3.0); ABG HCO3 25.3 mmol/L (20.0-26.0); ABG Methemoglobin 0.4 % (0.0-1.5); ABG Oxygen Saturation 98.5 % (95.0-99.0); ABG PCO2 35.8 mm Hg; ABG PH 7.467 pH Units (7.350-7.450); ABG PO2 125.4 mm Hg (80.0-90.0)
[2021-06-26 10:44] LABS: Bacteria,Urine 4+ /HPF (Negative); Bilirubin,Urine NEG (Negative); Blood,Urine MOD (Negative); Color,Urine Yellow (Yellow); Mucus,Urine FEW /HPF; Urobilinogen,Urine < 2.0 mg/dL (<2.0)
--- NOTE | 2021-06-26 10:44 | Progress Note ---
Assessment and Plan - Patient Problems (1) Acute hyponatremia Current Visit: Yes Status: Acute Plan to address problem: Did not respond to dose of samsca. She is on pressor support, hypotensive, with cool/clammy extremities, all which indicate hypovolemic state at this time. I do no think we are dealing with inappropriate ADH secretion at this time, and in fact her ADH response is appropriate given her current hemodynamic instability. Discussed with primary team, and will start patient on gentle IVF hydration and also give one dose of albumin. Will need to follow up closely. (2) Acute metabolic encephalopathy Current Visit: Yes Status: Acute Plan to address problem: Intubated at this time secondary to worsening lethargy and respiratory distress. Being that she was still lethargic despite improved serum sodium levels, I do not believe that her hyponatremia is contributing to her altered mental status at the present time. Concerned of underlying sepsis, and agree with broad spectrum antibiotics and may want to consider blood/urine cultures. (3) Atrial fibrillation with RVR Current Visit: Yes Status: Acute Plan to address problem: cardiology recommendations appreciated. (4) Community acquired pneumonia Current Visit: Yes Status: Acute Plan to address problem: antibiotic therapy per primary team. (5) Essential (primary) hypertension Current Visit: Yes Status: Acute Plan to address problem: monitor blood pressure on the current regimen. Currently hypotensive and on pressor support. (6) Type 2 diabetes mellitus without complications Current Visit: Yes Status: Chronic Plan to address problem: diabetes management per primary attending. Subjective Date of service: 06/26/21 Principal diagnosis: Hyponatremia Interval history: Patient seen in the ICU. Had received samsca. Last night she became more lethargic, increased respiratory distress and she was intubated. She is now on pressor support, with very labile blood pressures noted. Discussed with RN that patient is clearly hypovolemic, and I doubt that we are dealing with a SIADH at this point. She likely is expressing appopriate increase in ADH secondary to her hemodynamic instablility. Will start her on gentle IV hydration and give one time dose of albumin. Objective - Vital Signs Vital signs: Vital Signs - 12hr 06/25/21 06/25/21 06/25/21 22:40 22:50 23:00 Temperature Pulse Rate 89 111 H 113 H Pulse Rate [ From Monitor] Respiratory 22 14 20 Rate Blood Pressure 45/20 131/64 131/64 O2 Sat by Pulse 100 99 Oximetry 06/25/21 06/25/21 06/25/21 23:10 23:20 23:30 Temperature Pulse Rate 117 H 116 H 112 H Pulse Rate [ From Monitor] Respiratory 13 11 L 11 L Rate Blood Pressure 131/111 129/108 129/108 O2 Sat by Pulse 100 99 99 Oximetry 06/25/21 06/25/21 06/26/21 23:40 23:50 00:00 Temperature Pulse Rate 113 H 111 H 112 H Pulse Rate [ 112 H From Monitor] Respiratory 10 L 11 L 11 L Rate Blood Pressure 132/73 207/90 207/90 O2 Sat by Pulse 100 100 89 Oximetry 06/26/21 06/26/21 06/26/21 00:10 00:20 00:30 Temperature Pulse Rate 110 H 110 H 110 H Pulse Rate [ From Monitor] Respiratory 15 14 11 L Rate Blood Pressure 146/82 151/77 165/69 O2 Sat by Pulse 100 100 100 Oximetry 06/26/21 06/26/21 06/26/21 00:40 00:50 01:00 Temperature Pulse Rate 110 H 104 H 106 H Pulse Rate [ From Monitor] Respiratory 16 15 26 H Rate Blood Pressure 165/69 107/58 104/68 O2 Sat by Pulse 100 100 100 Oximetry 06/26/21 06/26/21 06/26/21 01:10 01:20 01:30 Temperature Pulse Rate 103 H 108 H 107 H Pulse Rate [ From Monitor] Respiratory 26 H 26 H 15 Rate Blood Pressure 104/68 127/74 109/77 O2 Sat by Pulse 100 100 100 Oximetry 06/26/21 06/26/21 06/26/21 01:40 01:50 02:00 Temperature Pulse Rate 107 H 111 H 110 H Pulse Rate [ From Monitor] Respiratory 19 28 H 25 H Rate Blood Pressure 109/77 134/62 139/72 O2 Sat by Pulse Oximetry 06/26/21 06/26/21 06/26/21 02:10 02:20 02:23 Temperature Pulse Rate 108 H 112 H 111 H Pulse Rate [ From Monitor] Respiratory 26 H 21 Rate Blood Pressure 139/72 99/60 107/59 O2 Sat by Pulse 100 100 97 Oximetry 06/26/21 06/26/21 06/26/21 02:30 02:40 02:50 Temperature Pulse Rate 113 H 110 H 113 H Pulse Rate [ From Monitor] Respiratory 22 26 H 26 H Rate Blood Pressure 99/60 99/60 97/55 O2 Sat by Pulse 100 100 Oximetry 06/26/21 06/26/21 06/26/21 03:00 03:10 03:20 Temperature Pulse Rate 110 H 109 H 107 H Pulse Rate [ From Monitor] Respiratory 26 H 26 H 26 H Rate Blood Pressure 97/55 78/46 88/50 O2 Sat by Pulse 100 100 Oximetry 06/26/21 06/26/21 06/26/21 03:30 03:40 03:50 Temperature Pulse Rate 108 H 113 H 105 H Pulse Rate [ From Monitor] Respiratory 26 H 27 H 26 H Rate Blood Pressure 89/51 105/57 91/52 O2 Sat by Pulse 100 Oximetry 06/26/21 06/26/21 06/26/21 04:00 04:10 04:20 Temperature 98.4 F Pulse Rate 107 H 119 H 116 H Pulse Rate [ 119 H From Monitor] Respiratory 26 H 26 H 26 H Rate Blood Pressure 91/52 102/51 92/45 O2 Sat by Pulse 100 100 96 Oximetry 06/26/21 06/26/21 06/26/21 04:30 04:40 04:50 Temperature Pulse Rate 115 H 115 H 108 H Pulse Rate [ From Monitor] Respiratory 26 H 26 H 26 H Rate Blood Pressure 89/55 89/55 123/55 O2 Sat by Pulse 98 89 93 Oximetry 06/26/21 06/26/21 06/26/21 05:00 05:10 05:20 Temperature Pulse Rate 117 H 112 H 113 H Pulse Rate [ From Monitor] Respiratory 26 H 26 H 26 H Rate Blood Pressure 107/59 107/59 124/55 O2 Sat by Pulse 91 96 95 Oximetry 06/26/21 06/26/21 06/26/21 05:30 05:40 05:50 Temperature Pulse Rate 119 H 120 H 122 H Pulse Rate [ From Monitor] Respiratory 17 26 H 26 H Rate Blood Pressure 124/55 171/136 120/93 O2 Sat by Pulse 95 97 Oximetry 06/26/21 06/26/21 06/26/21 06:00 06:10 06:20 Temperature Pulse Rate 122 H 118 H 121 H Pulse Rate [ From Monitor] Respiratory 26 H 26 H 26 H Rate Blood Pressure 94/53 94/53 122/64 O2 Sat by Pulse 98 99 98 Oximetry 06/26/21 06/26/21 06/26/21 06:30 06:40 06:50 Temperature Pulse Rate 133 H 121 H 114 H Pulse Rate [ From Monitor] Respiratory 26 H 26 H 26 H Rate Blood Pressure 85/52 85/52 105/59 O2 Sat by Pulse 96 99 100 Oximetry 06/26/21 06/26/21 06/26/21 07:00 07:10 07:20 Temperature Pulse Rate 111 H 111 H 112 H Pulse Rate [ From Monitor] Respiratory 26 H 26 H 26 H Rate Blood Pressure 127/62 127/62 127/59 O2 Sat by Pulse 100 100 100 Oximetry 06/26/21 06/26/21 06/26/21 07:30 07:40 07:50 Temperature Pulse Rate 113 H 114 H 112 H Pulse Rate [ From Monitor] Respiratory 26 H 26 H 26 H Rate Blood Pressure 115/61 115/61 140/64 O2 Sat by Pulse 100 100 100 Oximetry 06/26/21 06/26/21 06/26/21 07:52 08:00 08:07 Temperature 98.1 F 98.1 F Pulse Rate 113 H Pulse Rate [ 114 H From Monitor] Respiratory 26 H 26 H Rate Blood Pressure 127/58 O2 Sat by Pulse 100 100 Oximetry 06/26/21 06/26/21 06/26/21 08:10 08:20 08:30 Temperature Pulse Rate 124 H 118 H 114 H Pulse Rate [ From Monitor] Respiratory 26 H 26 H 26 H Rate Blood Pressure 127/58 109/55 94/52 O2 Sat by Pulse 100 100 100 Oximetry 06/26/21 06/26/21 06/26/21 08:40 08:50 09:22 Temperature Pulse Rate 114 H 119 H 115 H Pulse Rate [ From Monitor] Respiratory 26 H 26 H Rate Blood Pressure 94/52 83/54 88/49 O2 Sat by Pulse 100 100 Oximetry - General Appearance General appearance: sedated on ventilator, intubated, frail EENT: ATNC Neck: no JVD Respiratory: Present: Clear to Ascultation, Normal Exam Cardiology: tachycardia Gastrointestinal: normal Integumentary: cool/clammy Musculoskeletal: deferred - Lab 06/25/21 22:55 06/26/21 04:32 Most recent lab results ABG pH 7.467 pH Units (7.350-7.450) H 06/26/21 10:00 ABG pCO2 35.8 mm Hg 06/26/21 10:00 ABG pO2 125.4 mm Hg (80.0-90.0) H 06/26/21 10:00 ABG HCO3 25.3 mmol/L (20.0-26.0) 06/26/21 10:00 ABG O2 Saturation 98.5 % (95.0-99.0) 06/26/21 10:00 Calcium 9.2 mg/dL (8.4-10.2) 06/26/21 04:32 Phosphorus 4.70 mg/dL (2.5-4.5) H 06/25/21 22:55 Magnesium 1.90 mg/dL (1.7-2.3) 06/25/21 22:55 Urine Sodium 25 mmol/L 06/22/21 11:47 - Allied health notes Allied health notes reviewed: nursing Medications & Allergies - Medications Allergies/Adverse Reactions: Allergies No Known Allergies Allergy (Unverified 06/22/21 07:44) Home Medications: Home Medications Medication Instructions Recorded Confirmed Last Taken Type Atenolol/Chlorthalidone [Tenoretic 1 tab PO DAILY 06/22/21 06/22/21 Unknown History 50-25] Clopidogrel [Plavix] 75 mg PO DAILY 06/22/21 06/22/21 Unknown History Glimepiride [Amaryl] 2 mg PO QAM 06/22/21 06/22/21 Unknown History Pioglitazone [Actos] 15 mg PO DAILY 06/22/21 06/22/21 Unknown History Pravastatin [Pravachol] 40 mg PO QHS 06/22/21 06/22/21 Unknown History lisinopriL [Zestril TAB] 5 mg PO DAILY 06/22/21 06/22/21 Unknown History Active Medications: Generic Name Dose Route Start Last Admin Trade Name Freq PRN Reason Stop Dose Admin Acetaminophen 650 mg 06/22/21 22:21 06/23/21 12:13 Acetaminophen 325 Mg Tab PO 650 mg Q4H PRN Administration Pain MILD(1-3)/Fever >100.5/NAVA Albumin Human 25 gm 06/26/21 10:38 Albumin Human 25% (25 Gm/100 Ml) Inj IV 06/26/21 10:39 ONCE ONE Clopidogrel Bisulfate 75 mg 06/23/21 10:00 06/26/21 09:14 Clopidogrel 75 Mg Tab PO 75 mg DAILY JUDY Administration Docusate Sodium 100 mg 06/25/21 22:00 06/26/21 09:14 Docusate Sodium 100 Mg/10 Ml Oral Liqd PO 100 mg BID JUDY Administration Famotidine 20 mg 06/25/21 22:00 06/26/21 09:14 Famotidine 20 Mg/2 Ml Inj IV 20 mg BID JUDY Administration Fentanyl 50 mcg 06/26/21 04:27 Fentanyl 100 Mcg/2 Ml Inj IV Q10MIN PRN ANALGESIA Heparin Sodium/Sodium Chloride 25,000 unit in 500 mls @ 26 mls/hr 06/25/21 13:00 06/25/21 16:57 Heparin/ 0.45% Nacl-25,000 Unit/500 Ml IV 1,300 units/hr TITR JUDY 26 mls/hr Administration Protocol 1,300 UNITS/HR Amiodarone HCl 900 mg/ 500 mls @ 33.333 mls/hr 06/25/21 13:00 06/25/21 14:00 Dextrose IV 1 mg/min DIRECT JUDY 33.333 mls/hr Administration Protocol 1 MG/MIN NORepinephrine/NS 8 MG-250 ML 8 mg in 250 mls @ 3.75 mls/hr 06/25/21 23:00 06/26/21 10:15 Norepinephrine/Ns 8 Mg-250 Ml (Double Conc) IV 14 mcg/min TITRATE JUDY 26.25 mls/hr Titration Protocol 2 MCG/MIN Fentanyl Citrate 2,000 mcg in 100 mls @ 4.309 mls/hr 06/26/21 05:00 06/26/21 10:08 Fentanyl Drip Premix IV 1 mcg/kg/hr TITR JUDY 4.309 mls/hr Administration Protocol 1 MCG/KG/HR Vasopressin 20 unit/ Sodium 101 mls @ 9.09 mls/hr 06/26/21 10:00 Chloride IV TITR JUDY Protocol 0.03 UNITS/MIN Cefepime HCl 2 gm in 100 mls @ 200 mls/hr 06/26/21 10:00 Cefepime/Ns 2 Gm/100 Ml IV Q12H JUDY Protocol Vancomycin HCl 1,750 mg/ 535 mls @ 333.333 mls/hr 06/26/21 12:00 Sodium Chloride IV 06/26/21 13:36 ONCE ONE Vancomycin HCl 1,250 mg/ 275 mls @ 166.667 mls/hr 06/27/21 00:00 Sodium Chloride IV Q12H JUDY Sodium Chloride 1,000 mls @ 100 mls/hr 06/26/21 10:45 Nacl 0.9% 1000 Ml IV DIRECT JUDY Insulin Human Lispro 0 unit 06/22/21 23:00 06/26/21 09:25 Insulin Lispro 100 Unit/Ml SUB-Q 3 unit Q4HR JUDY Administration Protocol Metoclopramide HCl 10 mg 06/22/21 22:21 Metoclopramide 10 Mg/2 Ml Inj IV Q6H PRN Nausea And Vomiting Ondansetron HCl 4 mg 06/22/21 22:21 Ondansetron 4 Mg/2 Ml Inj IV Q8H PRN Nausea And Vomiting Pravastatin Sodium 40 mg 06/23/21 22:00 06/25/21 21:21 Pravastatin 40 Mg Tab PO 40 mg QHS JUDY Administration Sodium Chloride 10 ml 06/23/21 10:00 06/26/21 09:20 Sodium Chloride 0.9% 10 Ml Flush Syringe IV 10 ml BID JUDY Administration Sodium Chloride 10 ml 06/22/21 22:21 Sodium Chloride 0.9% 10 Ml Flush Syringe IV PRN PRN LINE FLUSH
[2021-06-26] MEDS: VASOPRESSIN 20 UNIT in SODIUM CHLORIDE 0.9% 100 ML IV SCH ×2 (10:52→22:47)
[2021-06-26] MEDS ORDERED: ALBUMIN HUMAN 25% (25 GM/100 ML) INJ IV NR (11:00)
[2021-06-26] MEDS ORDERED: ALBUMIN HUMAN 25% (25 GM/100 ML) INJ IV SCH (11:00)
[2021-06-26] MEDS: CEFEPIME/NS 2 GM/100 ML 2 GM/100 ML BAG IV SCH ×2 (11:20→22:24)
[2021-06-26] MEDS: HEPARIN/ 0.45% NACL DRIP 25,000 UNIT/500 ML BAG IV SCH (11:24)
[2021-06-26] MEDS ORDERED: SODIUM BICARBONATE 325 MG TAB FEEDTUBE PRN (11:31)
[2021-06-26] MEDS ORDERED: SIMPLE SYRUP 15 ML FEEDTUBE PRN ×2 (11:31)
[2021-06-26] MEDS ORDERED: LIPASE 10,500/PROTEASE 25,000/AMYLASE 43,750 (UNITS) DR CAP FEEDTUBE PRN (11:31)
[2021-06-26] MEDS ORDERED: VANCOMYCIN 1,750 MG in SODIUM CHLORIDE 0.9% 500 ML 500 ML IV ONE (12:00)
--- NOTE | 2021-06-26 16:28 | Progress Note ---
Assessment and Plan Assessment and plan: This is a 55-year-old female with HTN, tobacco abuse and diabetes mellitus admitted for severe hyponatremia, hypochloremia and hypokalemia, acute proximal respiratory failure, mini seizure-like activity and urinary tract infection. Neuro: Acute metabolic encephalopathy -Reported seizure-like activity and admitted by family however this could be related to her severe hyponatremia -No witnessed seizure activity after admit -Avoid delirium -S/p 3% saline -Reorientation as needed -Maintain sleep-wake cycle -As needed analgesia -Sedated with Versed -Changed to fentanyl -RASS goal 0 to -1 -Daily SBT and SAT when appropriate -Bilateral restraints in place for safety Cardio: Atrial fibrillation, h/o HTN -Cardiology consulted, appreciate recommendations -Amiodarone drip -stopped d/t hypotension and SB -Echocardiogram shows Normal bivalve function, LVEF 60 to 65% -Blood pressure monitoring protocol -Vasopressor support with Levophed and vasopressin -Map goal greater than 65 -Restarted home Plavix -Heparin drip for anticoagulation and statin -hold home antihtn regimen d/t hypotension -Started on stress dose steroids due to labile blood pressure Respiratory: Acute hypercarbic respiratory failure -s/p NRB -Intubated on 06/25 with 7.50 ETT at 22 at the lips -A.m. vent settings: Tidal volume 450, rate 26, PEEP 8, FiO2 50% -See RT notes for titration -A.m. ABG and CXR noted -VAP bundle -SPO2 monitoring GI: NAD -24 hours -473 mL -Nutrition consult for tube feeding -BR: colace -PPI : Severe hyponatremia (improving), acute kidney injury, hypochloremia -Nephrology consulted, appreciate recommendations -S/p 3% saline -S/p Samsca -MIVF and albumin per nephrology -Strict intake and output -Trend BMP Heme: Leukocytosis -Trend CBC -Transfuse hemoglobin less than 7 -Heparin drip -SCDs to bilateral lower extremity while in bed ID: Urinary tract infection, Community-acquired pneumonia -Antibiotic therapy: Cefepime and vancomycin -Blood culture x2 -Sputum culture -Monitor WBC and temp curve -UA with pyuria -CXR on admit with PNA Endo: h/o DM type II -SSI -Accu-Cheks AC at bedtime -Avoid hypoglycemia -Hemoglobin A1c 6.6 The high probability of a clinically significant, sudden or life threatening deterioration of the [renal] system(s) required my full and direct attention, intervention and personal management. The aggregate critical care time was [60] minutes. This time is in addition to time spent performing reported procedures but includes the following: [x] Data Review and interpretation [x] Patient assessment and monitoring of vital signs [x] Documentation [x] Medication orders and management Disposition Plan: icu Total Time Spent with Patient (Minutes): 60 History Interval history: This is a 55-year-old female with hypertension, atrial fibrillation, tobacco abuse and diabetes mellitus who presents the emergency department on 06/22 for severe weakness, altered mental status and witnessed seizure-like activity. CXR showed left basilar airspace opacity and work-up in the emergency department revealed severe hyponatremia, hypokalemia, severe hypochloremia, metabolic alkalosis acute hypoxic respiratory failure, witnessed seizure activity and urinary tract infection. Patient was admitted to the hospital service with consults to nephrology and CCM. 06/23/2021 Patient symptomatically better Sodium is 117 06/24: Sodium slightly better however we will still admit to ICU, no acute vents overnight 06/25: Patient noted to be in atrial fibrillation upon transfer to ICU and stat ECG revealed atrial fibrillation. Cardiology was consulted. Patient restarted on home beta-jeimy and was eventually changed to amiodarone. She was started on heparin drip. Patient will be transferred to the telemetry floor. 06/26: Yesterday evening transfer was held and ABG read which showed hypercapnia and patient was intubated. Patient became bradycardic and hypotensive and was started on Levophed. This morning patient Levophed was in the high 20s therefore vasopressin was added. After addition of vasopressin and was able to wean Levophed. Stress dose steroids started due to labile pressures. Broad- spectrum antibiotics started. Patient started on albumin and normal saline per nephrology. Cotisol ordered Hospitalist Physical - Constitutional Vitals: Temp Pulse Resp BP Pulse Ox 100.0 F H 90 24 131/65 98 06/26/21 12:00 06/26/21 16:15 06/26/21 16:15 06/26/21 16:15 06/26/21 16:15 General appearance: Present: no acute distress - EENT Eyes: Present: PERRL, EOM intact ENT: hearing intact, clear oral mucosa, dentition normal - Neck Neck: Present: supple, normal ROM - Respiratory Respiratory effort: normal Respiratory: bilateral: diminished - Cardiovascular Rhythm: regular Heart Sounds: Present: S1 & S2. Absent: systolic murmur, diastolic murmur - Extremities Extremities: no ischemia, pulses intact, pulses symmetrical, No edema, normal temperature, normal color Peripheral Pulses: within normal limits - Abdominal General gastrointestinal: soft, non-tender, non-distended, normal bowel sounds - Integumentary Integumentary: Present: warm, dry - Psychiatric Psychiatric: other (sedated) - Neurologic Neurologic: other (sedated) - Allied Health Allied health notes reviewed: nursing, RT, social work HEART Score - HEART Score Troponin: Troponin T < 0.010 ng/mL (0.00-0.029) 06/22/21 07:58 Results - Labs CBC & Chem 7: 06/25/21 22:55 06/26/21 04:32 Labs: Laboratory Last Values WBC 14.8 K/mm3 (4.5-11.0) H 06/25/21 22:55 RBC 4.00 M/mm3 (3.65-5.03) 06/25/21 22:55 Hgb 11.8 gm/dl (10.1-14.3) 06/25/21 22:55 Hct 37.3 % (30.3-42.9) 06/25/21 22:55 MCV 93 fl (79-97) 06/25/21 22:55 MCH 29 pg (28-32) 06/25/21 22:55 MCHC 32 % (30-34) 06/25/21 22:55 RDW 13.7 % (13.2-15.2) 06/25/21 22:55 Plt Count 374 K/mm3 (140-440) 06/25/21 22:55 Lymph % (Auto) 5.8 % (13.4-35.0) L 06/23/21 05:29 [place] % (Auto) 6.9 % (0.0-7.3) 06/23/21 05:29 Eos % (Auto) 0.1 % (0.0-4.3) 06/23/21 05:29 Baso % (Auto) 0.1 % (0.0-1.8) 06/23/21 05:29 Lymph # (Auto) 0.7 K/mm3 (1.2-5.4) L 06/23/21 05:29 [place] # (Auto) 0.9 K/mm3 (0.0-0.8) H 06/23/21 05:29 Eos # (Auto) 0.0 K/mm3 (0.0-0.4) 06/23/21 05:29 Baso # (Auto) 0.0 K/mm3 (0.0-0.1) 06/23/21 05:29 Add Manual Diff Complete 06/25/21 22:55 Total Counted 100 06/25/21 22:55 Seg Neutrophils % 87.1 % (40.0-70.0) H 06/23/21 05:29 Seg Neuts % (Manual) 91.0 % (40.0-70.0) H 06/25/21 22:55 Lymphocytes % (Manual) 6.0 % (13.4-35.0) L 06/25/21 22:55 Monocytes % (Manual) 3.0 % (0.0-7.3) 06/25/21 22:55 Metamyelocytes % 1.0 % 06/24/21 05:33 Nucleated RBC % Not Reportable 06/25/21 22:55 Seg Neutrophils # 10.8 K/mm3 (1.8-7.7) H 06/23/21 05:29 Seg Neutrophils # Man 13.5 K/mm3 (1.8-7.7) H 06/25/21 22:55 Band Neutrophils # 0.0 K/mm3 06/25/21 22:55 Lymphocytes # (Manual) 0.9 K/mm3 (1.2-5.4) L 06/25/21 22:55 Abs React Lymphs (Man) 0.0 K/mm3 06/25/21 22:55 Monocytes # (Manual) 0.4 K/mm3 (0.0-0.8) 06/25/21 22:55 Eosinophils # (Manual) 0.0 K/mm3 (0.0-0.4) 06/25/21 22:55 Basophils # (Manual) 0.0 K/mm3 (0.0-0.1) 06/25/21 22:55 Metamyelocytes # 0.0 K/mm3 06/25/21 22:55 Myelocytes # 0.0 K/mm3 06/25/21 22:55 Promyelocytes # 0.0 K/mm3 06/25/21 22:55 Blast Cells # 0.0 K/mm3 06/25/21 22:55 WBC Morphology Not Reportable 06/25/21 22:55 Hypersegmented Neuts Not Reportable 06/25/21 22:55 Hyposegmented Neuts Not Reportable 06/25/21 22:55 Hypogranular Neuts Not Reportable 06/25/21 22:55 Smudge Cells Not Reportable 06/25/21 22:55 Toxic Granulation Not Reportable 06/25/21 22:55 Toxic Vacuolation Not Reportable 06/25/21 22:55 Dohle Bodies Not Reportable 06/25/21 22:55 Pelger-Huet Anomaly Not Reportable 06/25/21 22:55 Otf Rods Not Reportable 06/25/21 22:55 Platelet Estimate Consistent w auto 06/25/21 22:55 Clumped Platelets Not Reportable 06/25/21 22:55 Plt Clumps, EDTA Not Reportable 06/25/21 22:55 Large Platelets Not Reportable 06/25/21 22:55 Giant Platelets Not Reportable 06/25/21 22:55 Platelet Satelliting Not Reportable 06/25/21 22:55 Plt Morphology Comment Not Reportable 06/25/21 22:55 RBC Morphology Normal 06/25/21 22:55 Dimorphic RBCs Not Reportable 06/25/21 22:55 Polychromasia Not Reportable 06/25/21 22:55 Hypochromasia Not Reportable 06/25/21 22:55 Poikilocytosis Not Reportable 06/25/21 22:55 Anisocytosis Not Reportable 06/25/21 22:55 Microcytosis Not Reportable 06/25/21 22:55 Macrocytosis Not Reportable 06/25/21 22:55 Spherocytes Not Reportable 06/25/21 22:55 Pappenheimer Bodies Not Reportable 06/25/21 22:55 Sickle Cells Not Reportable 06/25/21 22:55 Target Cells Not Reportable 06/25/21 22:55 Tear Drop Cells Not Reportable 06/25/21 22:55 Ovalocytes Not Reportable 06/25/21 22:55 Helmet Cells Not Reportable 06/25/21 22:55 Bridges-Crossett Bodies Not Reportable 06/25/21 22:55 Hatch Rings Not Reportable 06/25/21 22:55 Hudson Cells Not Reportable 06/25/21 22:55 Bite Cells Not Reportable 06/25/21 22:55 Crenated Cell Not Reportable 06/25/21 22:55 Elliptocytes Not Reportable 06/25/21 22:55 Acanthocytes (Spur) Not Reportable 06/25/21 22:55 Rouleaux Not Reportable 06/25/21 22:55 Hemoglobin C Crystals Not Reportable 06/25/21 22:55 Schistocytes Not Reportable 06/25/21 22:55 Malaria parasites Not Reportable 06/25/21 22:55 Steve Bodies Not Reportable 06/25/21 22:55 Hem Pathologist Commnt No 06/25/21 22:55 PT 12.6 Sec. (12.2-14.9) 06/25/21 13:42 INR 0.85 (0.87-1.13) L 06/25/21 13:42 APTT 31.0 Sec. (24.2-36.6) 06/25/21 13:42 Thrombin Time 15.9 Sec. (15.1-19.6) 06/22/21 07:58 Heparin Anti-Xa Level 0.62 U.I./ml (0.3-0.7) 06/26/21 04:32 ABG pH 7.467 pH Units (7.350-7.450) H 06/26/21 10:00 POC ABG pCO2 104.9 mmHg (32.0-48.0) H 06/25/21 21:21 ABG pCO2 35.8 mm Hg 06/26/21 10:00 POC ABG pO2 85.2 mmHg (83-108) 06/25/21 21:21 ABG pO2 125.4 mm Hg (80.0-90.0) H 06/26/21 10:00 POC ABG HCO3 30.8 06/25/21 21:21 ABG HCO3 25.3 mmol/L (20.0-26.0) 06/26/21 10:00 ABG O2 Saturation 98.5 % (95.0-99.0) 06/26/21 10:00 ABG O2 Content 17.1 (0.0-44) 06/26/21 10:00 POC ABG Base Excess -2.2 06/25/21 21:21 ABG Base Excess 1.9 mmol/L (-2.0-3.0) 06/26/21 10:00 ABG Hemoglobin 12.4 gm/dl (12.0-16.0) 06/26/21 10:00 ABG Oxyhemoglobin 92.4 (94-98) L 06/25/21 21:21 ABG Carboxyhemoglobin 1.1 % (0.0-5.0) 06/26/21 10:00 ABG Methemoglobin 0.4 % (0.0-1.5) 06/26/21 10:00 ABG Sodium 123.4 mmol/L (136.0-145.0) L 06/25/21 21:21 ABG Potassium 4.4 mmol/L (3.40-4.50) 06/25/21 21:21 ABG Chloride 81.0 mmol/L (98-107) L 06/25/21 21:21 ABG Glucose 225 mg/dL (65-95) H 06/25/21 21:21 Oxyhemoglobin 97.0 % (95.0-99.0) 06/26/21 10:00 Carboxyhemoglobin 1.5 (0.5-1.5) 06/25/21 21:21 FiO2 50 % 06/26/21 10:00 FiO2 % 100.0 06/25/21 21: Sodium 123 mmol/L (137-145) L 06/26/21 04:32 Potassium 3.9 mmol/L (3.6-5.0) 06/26/21 04:32 Chloride 79.2 mmol/L (98-107) L 06/26/21 04:32 Carbon Dioxide 25 mmol/L (22-30) 06/26/21 04:32 Anion Gap 23 mmol/L 06/26/21 04:32 BUN 26 mg/dL (7-17) H 06/26/21 04:32 Creatinine 1.1 mg/dL (0.6-1.2) 06/26/21 04:32 Estimated GFR 50 ml/min 06/26/21 04:32 BUN/Creatinine Ratio 24 % 06/26/21 04:32 Glucose 202 mg/dL (65-100) H 06/26/21 04:32 POC Glucose 194 mg/dL (70-105) H 06/26/21 09:14 Hemoglobin A1c 6.6 % (4-6) H 06/23/21 05:29 Osmolality 240 Mosm/kg 06/22/21 23:24 Lactic Acid 1.60 mmol/L (0.7-2.0) 06/25/21 22:55 Uric Acid 3.2 mg/dL (3.5-7.6) L 06/23/21 05:29 Calcium 9.2 mg/dL (8.4-10.2) 06/26/21 04:32 Phosphorus 4.70 mg/dL (2.5-4.5) H 06/25/21 22:55 Magnesium 1.90 mg/dL (1.7-2.3) 06/25/21 22:55 Ferritin 102.1 ng/mL (10.0-200.0) 06/22/21 08:56 Total Bilirubin 0.30 mg/dL (0.1-1.2) 06/26/21 04:32 Direct Bilirubin < 0.2 mg/dL (0-0.2) 06/26/21 04:32 Indirect Bilirubin 0.1 mg/dL 06/26/21 04:32 AST 33 units/L (5-40) 06/26/21 04:32 ALT 20 units/L (7-56) 06/26/21 04:32 Alkaline Phosphatase 62 units/L (35-129) 06/26/21 04:32 Lactate Dehydrogenase 220 units/L (91-180) H 06/22/21 08:56 Troponin T < 0.010 ng/mL (0.00-0.029) 06/22/21 07:58 C-Reactive Protein 5.40 mg/dL (0.00-1.30) H 06/22/21 08:56 Total Protein 5.9 g/dL (6.3-8.2) L 06/26/21 04:32 Albumin 2.8 g/dL (3.9-5) L 06/26/21 04:32 Albumin/Globulin Ratio 0.9 % 06/26/21 04:32 Procalcitonin < 0.05 ng/mL (<0.15) 06/22/21 08:56 TSH 1.070 mlU/mL (0.270-4.200) 06/22/21 07:58 Total Cortisol 49.6 mcg/dL () 06/22/21 11:28 Arterial Blood Glucose 225 mg/dL (65-95) H 06/25/21 21:21 Arterial Blood Ionized Calcium 5.3 mg/dL (4.6-5.3) 06/25/21 21:21 Urine Color Yellow (Yellow) 06/26/21 09:48 Urine Turbidity Slightly-cloudy (Clear) 06/26/21 09:48 Urine pH 6.0 (5.0-7.0) 06/26/21 09:48 Ur Specific [place] 1.014 (1.003-1.030) 06/26/21 09:48 Urine Protein 30 mg/dl mg/dL (Negative) 06/26/21 09:48 Urine Glucose (UA) 50 mg/dL (Negative) 06/26/21 09:48 Urine Ketones 20 mg/dL (Negative) 06/26/21 09:48 Urine Blood Mod (Negative) 06/26/21 09:48 Urine Nitrite Neg (Negative) 06/26/21 09:48 Urine Bilirubin Neg (Negative) 06/26/21 09:48 Urine Urobilinogen < 2.0 mg/dL (<2.0) 06/26/21 09:48 Ur Leukocyte Esterase Mod (Negative) 06/26/21 09:48 Urine WBC (Auto) 69.0 /HPF (0.0-6.0) H 06/26/21 09:48 Urine RBC (Auto) 29.0 /HPF (0.0-6.0) 06/26/21 09:48 U Epithel Cells (Auto) 1.0 /HPF (0-13.0) 06/26/21 09:48 Urine Bacteria (Auto) 4+ /HPF (Negative) 06/26/21 09:48 Ur Transition Epith Cell 1 /HPF 06/22/21 11:47 Hyaline Casts 5 /LPF 06/22/21 11:47 Urine Mucus Few /HPF 06/26/21 09:48 Urine Yeast (Budding) 3+ /HPF 06/26/21 09:48 Urine Osmolality 571 Mosm/kg 06/22/21 11:47 Urine Sodium 25 mmol/L 06/22/21 11:47 Coronavirus (PCR) Negative (Negative) 06/22/21 Unknown Microbiology: Microbiology 06/22/21 08:56 Peripheral/Venous Blood Culture - Preliminary NO GROWTH AFTER 4 DAYS 06/22/21 08:56 Peripheral/Venous Blood Culture - Preliminary NO GROWTH AFTER 4 DAYS Active Medications - Current Medications Current Medications: Generic Name Dose Route Start Last Admin Trade Name Freq PRN Reason Stop Dose Admin Acetaminophen 650 mg 06/22/21 22:21 06/23/21 12:13 Acetaminophen 325 Mg Tab PO 650 mg Q4H PRN Administration Pain MILD(1-3)/Fever >100.5/NAVA Lipase/Protease/Amylase 1 each 06/26/21 11:31 Lipase 10,500/Protease 25,000/Amylase 43,750 (Units) Dr Castellanos FEEDTUBE PRN PRN For Clogged Feeding Tube Clopidogrel Bisulfate 75 mg 06/23/21 10:00 06/26/21 09:14 Clopidogrel 75 Mg Tab PO 75 mg DAILY JUDY Administration Docusate Sodium 100 mg 06/25/21 22:00 06/26/21 09:14 Docusate Sodium 100 Mg/10 Ml Oral Liqd PO 100 mg BID JUDY Administration Famotidine 20 mg 06/25/21 22:00 06/26/21 09:14 Famotidine 20 Mg/2 Ml Inj IV 20 mg BID JUDY Administration Fentanyl 50 mcg 06/26/21 04:27 Fentanyl 100 Mcg/2 Ml Inj IV Q10MIN PRN ANALGESIA Hydrocortisone Sodium Succinate 60 mg 06/26/21 22:00 Hydrocortisone Sod Succ 100 Mg/2 Ml Vial IV Q8HR JUDY Heparin Sodium/Sodium Chloride 25,000 unit in 500 mls @ 26 mls/hr 06/25/21 13:00 06/26/21 11:24 Heparin/ 0.45% Nacl-25,000 Unit/500 Ml IV 1,300 units/hr TITR JUDY 26 mls/hr Administration Protocol 1,300 UNITS/HR Amiodarone HCl 900 mg/ 500 mls @ 33.333 mls/hr 06/25/21 13:00 06/25/21 14:00 Dextrose IV 1 mg/min DIRECT JUDY 33.333 mls/hr Administration Protocol 1 MG/MIN NORepinephrine/NS 8 MG-250 ML 8 mg in 250 mls @ 3.75 mls/hr 06/25/21 23:00 1 15:17 Norepinephrine/Ns 8 Mg-250 Ml (Double Conc) IV 2 mcg/min TITRATE JUDY 3.75 mls/hr Titration Protocol 2 MCG/MIN Fentanyl Citrate 2,000 mcg in 100 mls @ 4.309 mls/hr 06/26/21 05:00 06/26/21 10:08 Fentanyl Drip Premix IV 1 mcg/kg/hr TITR JUDY 4.309 mls/hr Administration Protocol 1 MCG/KG/HR Vasopressin 20 unit/ Sodium 101 mls @ 9.09 mls/hr 06/26/21 10:00 06/26/21 14:34 Chloride IV 0.03 units/min TITR JUDY 9.09 mls/hr Titration Protocol 0.03 UNITS/MIN Cefepime HCl 2 gm in 100 mls @ 200 mls/hr 06/26/21 10:00 06/26/21 11:20 Cefepime/Ns 2 Gm/100 Ml IV 200 mls/hr Q12H [facility] Administration Protocol Vancomycin HCl 1,250 mg/ 275 mls @ 166.667 mls/hr 06/27/21 00:00 Sodium Chloride IV Q12H JUDY Sodium Chloride 1,000 mls @ 100 mls/hr 06/26/21 11:00 Nacl 0.9% 1000 Ml IV DIRECT [facility] Insulin Glargine 10 units 06/26/21 22:00 Insulin Glargine 100 Units/Ml SUB-Q QHS [facility] Insulin Human Lispro 0 unit 06/26/21 12:00 06/26/21 11:52 Insulin Lispro 100 Unit/Ml SUB-Q 3 unit Q6HR [facility] Administration Protocol Metoclopramide HCl 10 mg 06/22/21 22:21 Metoclopramide 10 Mg/2 Ml Inj IV Q6H PRN Nausea And Vomiting Ondansetron HCl 4 mg 06/22/21 22:21 Ondansetron 4 Mg/2 Ml Inj IV Q8H PRN Nausea And Vomiting Pravastatin Sodium 40 mg 06/23/21 22:00 06/25/21 21:21 Pravastatin 40 Mg Tab PO 40 mg QHS [facility] Administration Simple Syrup 15 ml 06/26/21 11:31 Simple Syrup 15 Ml FEEDTUBE PRN PRN Hypoglycemia Simple Syrup 30 ml 06/26/21 11:31 Simple Syrup 15 Ml FEEDTUBE PRN PRN Hypoglycemia Sodium Bicarbonate 325 mg 06/26/21 11:31 Sodium Bicarbonate 325 Mg Tab FEEDTUBE PRN PRN For Clogged Feeding Tube Sodium Chloride 10 ml 06/23/21 10:00 06/26/21 09:20 Sodium Chloride 0.9% 10 Ml Flush Syringe IV 10 ml BID JUDY Administration Sodium Chloride 10 ml 06/22/21 22:21 Sodium Chloride 0.9% 10 Ml Flush Syringe IV PRN PRN LINE FLUSH Nutrition/Malnutrition Assess - Dietary Evaluation Nutrition/Malnutrition Findings: Nutrition Notes Start: 06/26/21 11:01 Freq: Status: Active Protocol: Document 06/26/21 11:01 VINCENZO (Rec: 06/26/21 11:34 VINCENZO [id number]) Nutrition Notes Need for Assessment generated from: MD Order Initial or Follow up Assessment Current Diagnosis Diabetes,Hypertension Other Pertinent Diagnosis CA Pneumonia, Hyponatremia, Atr Fib w/RVR, Ac Met Encephalopathy. Current Diet NPO (since 06/25), TF-Osmolite 1.5 Volodymyr @ 43 ml/hr (since L 06/26). Labs/Tests 06/26: Na 123, Cl 79.2, BUN 26 , Glu 202, Tpro 5.9, Alb 2.8. Pertinent Medications 06/26: Nutritionally unremarkable. Height 5 ft 5 in Weight 86.183 kg [place] Body Weight (kg) 56.81 BMI 31.6 Weight change and time frame None reported at admission. Weight Status Obese Subjective/Other Information RD consult for evaluation of nutritional intake and write/ manage TF. Pt on mechanical ventilation. Pt sedated. Pt has missing teeth. Percent of energy/protein needs met: Pt currently on NPO. Burn Absent Trauma Absent GI Symptoms None Food Allergy No Skin Integrity/Comment Unspecified bruises. Current % PO Other Minimum of two criteria No #1 Nutrition Diagnosis Inadequate oral intake Etiology Pt 's worsening lethargy and respiratory distress. As Evidenced by Signs and Symptoms Pt on mechanical ventilation and sedated, MD request for write/manage TF. Is patient on ventilator? Yes Is Patient Ambulatory and/or Out of Bed No REE-([place]-confined to bed) 1700.352 Kcal/Kg value to use for calculation 18 Approximate Energy Requirements Using 1551 kcal/Kg Calculation Used for Recommendations Kcal/kg Additional Notes Protein: 1-1.2 g/Kg; 72-86 g/ day. Fluids: 1 ml/Kcal, or as per MD. Nutrition Intervention Nutrition Support: Start Osmolite 1.5 Volodymyr @ 43 ml /hr. Flush: 130 ml water Q 4 hr. Kcal 1,551 Protein (gm) 65 Carbohydrates (gm) 211 Fat (gm) 51 Fluid (mL) 788 Fiber (gm) 0 % RDI: 100% Kcal; 90% AA. Goal #1 Provide at least 75% of energy /protein needs through Enteral Feeding during LOS. Follow-Up By: 06/29/21 Additional Comments Continue monitoring TF tolerance and BM.
[2021-06-26 18:56] LABS: Calcium 9.2 mg/dL (8.4-10.2)
--- NOTE | 2021-06-26 19:31 | Progress Note ---
Assessment and Plan Acute Encephalopathy Symptomatic Hyponatremia Acute Respiratory Failure PNA UTI Hypotension AF with RVR (new onset) Hypokalemia (resolved) Hypomagnesemia (resolved) H/o HTN DM2 H/o Tobacco Abuse Plan: Echo reviewed - EF 60-65%, no significant valvular abnormalities. Wean vent and pressors as tolerated. May resume Amiodarone gtt for RVR sustaining > 130bpm. Continue anticoagulation with heparin gtt at this time. Ultimately plan to transition to OAC (Eliquis) pending clinical course. Pt seen in conjunction with Dr. Romano, who agrees with the assessment and plan of care. - Patient Problems (1) Atrial fibrillation with RVR Current Visit: Yes Status: Acute Subjective Date of service: 06/26/21 Principal diagnosis: AF w RVR Interval history: Respiratory distress reported overnight, requiring intubation. Pt subsequently became bradycardic and hypotensive, and thus Amio gtt was discontinued. She was in SR earlier today but has converted back to AF. Rate controlled in the 70- 80bpm range upon assessment. Objective Last Vital Signs Temp 99.7 F H 06/26/21 17:31 Pulse 83 06/26/21 18:15 Resp 16 06/26/21 18:15 BP 104/47 06/26/21 18:15 Pulse Ox 99 06/26/21 18:15 - Physical Examination General: Other (intubated) HEENT: Positive: Normocephaly, Mucus Membranes Dry Neck: Positive: neck supple, trachea midline Cardiac: Positive: irregularly irregular Lungs: Positive: Ventilated Respirations Neuro: Positive: Other (intubated) Abdomen: Positive: Soft Skin: Negative: Rash Extremities: Present: lower extr. pulses. Absent: edema - Labs and Meds Cardiac Enzymes 06/26/21 Range/Units 04:32 AST 33 (5-40) units/L CBC 06/25/21 Range/Units 22:55 WBC 14.8 H (4.5-11.0) K/mm3 RBC 4.00 (3.65-5.03) M/mm3 Hgb 11.8 (10.1-14.3) gm/dl Hct 37.3 (30.3-42.9) % Plt Count 374 (140-440) K/mm3 Comprehensive Metabolic Panel 06/25/21 06/26/21 06/26/21 Range/Units 22:55 04:32 16:06 Sodium 124 L 123 L 128 L (137-145) mmol/L Potassium 3.9 3.9 3.8 (3.6-5.0) mmol/L Chloride 82.9 L 79.2 L 88.6 L (98-107) mmol/L Carbon Dioxide 30 25 28 (22-30) mmol/L BUN 22 H 26 H 32 H (7-17) mg/dL Creatinine 1.0 1.1 1.0 (0.6-1.2) mg/dL Glucose 226 H 202 H 161 H (65-100) mg/dL Calcium 8.2 L 9.2 9.2 (8.4-10.2) mg/dL Direct Bilirubin < 0.2 (0-0.2) mg/dL Indirect Bilirubin 0.1 mg/dL AST 33 (5-40) units/L ALT 20 (7-56) units/L Alkaline Phosphatase 62 (35-129) units/L Total Protein 5.9 L (6.3-8.2) g/dL Albumin 2.8 L (3.9-5) g/dL - Imaging and Cardiology EKG: report reviewed, image reviewed Echo: report reviewed - Telemetry EKG Rhythm: Atrial Fibrillation - EKG Supraventricular dysrhythmia: atrial fibrillation Ventricular dysrhythmias: ventricular premature com Myocardial infarction: septal ND (old age or ind, anterior ND (old age or i - Allied health notes Allied health notes reviewed: nursing
[2021-06-26] MEDS ORDERED: INSULIN GLARGINE 100 UNITS/ML SUB-Q SCH (22:00)
[2021-06-26] MEDS: PRAVASTATIN 40 MG TAB PO SCH (22:24)
[2021-06-26] MEDS: HYDROCORTISONE SOD SUCC 100 MG/2 ML VIAL IV SCH (23:54)
[2021-06-27 00:10] LABS: BUN/Creatinine Ratio 43; Blood Urea Nitrogen 34 mg/dL (7-17); Calcium 8.8 mg/dL (8.4-10.2); Hemolysis Index 7
--- NOTE | 2021-06-27 03:03 | XRay Report ---
CHEST 1 VIEW INDICATION / CLINICAL INFORMATION: follow up respiratory failure. COMPARISON: 06/26/2021 FINDINGS: SUPPORT DEVICES: Stable, satisfactory device positioning. HEART / MEDIASTINUM: No significant abnormality. LUNGS / PLEURA: The lungs remain prominently hyperinflated consistent with COPD, but otherwise grossl y clear. No pneumothorax. ADDITIONAL FINDINGS: No significant additional findings. IMPRESSION: 1. No acute findings. No interval change. Signer Name: Ashley Pennington MD Signed: 06/27/2021 2:59 AM Workstation Name: [id number]
[2021-06-27] MEDS: VANCOMYCIN 1,250 MG in SODIUM CHLORIDE 0.9% 250ML 250 ML IV SCH ×2 (05:11→16:40)
[2021-06-27] MEDS: INSULIN LISPRO 100 UNIT/ML SUB-Q SCH ×3 (05:44→17:11)
[2021-06-27] MEDS: SODIUM CHLORIDE 0.9% 1000 ML 1,000 ML IV SCH ×2 (06:49→17:12)
[2021-06-27 07:15] LABS: BUN/Creatinine Ratio 45; Blood Urea Nitrogen 36 mg/dL (7-17); Calcium 8.6 mg/dL (8.4-10.2); Hemolysis Index 11
[2021-06-27 07:30] LABS: Hematocrit 33.3 % (30.3-42.9); Hemoglobin 10.5 gm/dl (10.1-14.3); Mean Corpuscular HGB Conc 32 % (30-34); Mean Corpuscular Volume 91 fl (79-97); Platelet Count 398 K/mm3 (140-440); Red Blood Count 3.67 M/mm3 (3.65-5.03); Red Cell Distribution Width 13.4 % (13.2-15.2)
[2021-06-27] MEDS: HYDROCORTISONE SOD SUCC 100 MG/2 ML VIAL IV SCH ×3 (08:15→21:40)
[2021-06-27] MEDS: CEFEPIME/NS 2 GM/100 ML 2 GM/100 ML BAG IV SCH (09:16)
[2021-06-27] MEDS: DOCUSATE SODIUM 100 MG/10 ML ORAL LIQD PO SCH ×2 (09:17→21:40)
[2021-06-27] MEDS: FAMOTIDINE 20 MG/2 ML INJ IV SCH (09:17)
[2021-06-27] MEDS: CLOPIDOGREL 75 MG TAB PO SCH (09:17)
[2021-06-27] MEDS: HEPARIN/ 0.45% NACL DRIP 25,000 UNIT/500 ML BAG IV SCH (10:22)
--- NOTE | 2021-06-27 12:51 | Progress Note ---
Assessment and Plan - Patient Problems (1) Acute hyponatremia Current Visit: Yes Status: Acute Plan to address problem: Did not respond to dose of samsca. She is on pressor support, hypotensive, with cool/clammy extremities, all which indicate hypovolemic state at this time. I do no think we are dealing with inappropriate ADH secretion at this time, and in fact her ADH response is appropriate given her current hemodynamic instability. Discussed with primary team, and we started patient on gentle IVF hydration and also gave one dose of albumin. Will need to follow up closely. From renal standpoint will continue current regimen of gentle IVF hydration. No indications for hypertonic saline at this time. (2) Acute metabolic encephalopathy Current Visit: Yes Status: Acute Plan to address problem: Intubated at this time secondary to worsening lethargy and respiratory distress. Being that she was still lethargic despite improved serum sodium levels, I do not believe that her hyponatremia is contributing to her altered mental status at the present time. Concerned of underlying sepsis, and agree with broad spectrum antibiotics and may want to consider blood/urine cultures. (3) Atrial fibrillation with RVR Current Visit: Yes Status: Acute Plan to address problem: cardiology recommendations appreciated. (4) Community acquired pneumonia Current Visit: Yes Status: Acute Plan to address problem: antibiotic therapy per primary team. (5) Essential (primary) hypertension Current Visit: Yes Status: Acute Plan to address problem: monitor blood pressure on the current regimen. Currently hypotensive and on pressor support. (6) Type 2 diabetes mellitus without complications Current Visit: Yes Status: Chronic Plan to address problem: diabetes management per primary attending. Subjective Date of service: 06/27/21 Principal diagnosis: AF w RVR Interval history: Remains on pressor support with levophed at 2 mcg/kg/min. Labs reviewed, renal function stable, serum sodium at 128 meq/L. Objective - Vital Signs Vital signs: Vital Signs - 12hr 06/27/21 06/27/21 06/27/21 01:00 01:15 01:30 Temperature Pulse Rate 79 79 70 Pulse Rate [ From Monitor] Respiratory 24 24 21 Rate Blood Pressure 164/74 157/72 157/72 O2 Sat by Pulse 98 98 Oximetry 06/27/21 06/27/21 06/27/21 01:45 02:00 02:15 Temperature Pulse Rate 66 76 57 L Pulse Rate [ From Monitor] Respiratory 24 24 24 Rate Blood Pressure 122/60 125/62 118/55 O2 Sat by Pulse 100 100 99 Oximetry 06/27/21 06/27/21 06/27/21 02:30 02:45 03:00 Temperature Pulse Rate 59 L 77 76 Pulse Rate [ From Monitor] Respiratory 24 24 Rate Blood Pressure 123/51 133/62 131/64 O2 Sat by Pulse 100 Oximetry 06/27/21 06/27/21 06/27/21 03:15 03:30 03:45 Temperature Pulse Rate 78 67 74 Pulse Rate [ From Monitor] Respiratory 24 24 Rate Blood Pressure 138/68 137/64 134/63 O2 Sat by Pulse 100 100 100 Oximetry 06/27/21 06/27/21 06/27/21 04:00 04:15 04:30 Temperature 99.2 F Pulse Rate 71 84 67 Pulse Rate [ 66 From Monitor] Respiratory 24 24 Rate Blood Pressure 143/66 135/65 141/59 O2 Sat by Pulse 100 100 100 Oximetry 06/27/21 06/27/21 06/27/21 04:39 04:45 05:00 Temperature Pulse Rate 67 73 79 Pulse Rate [ From Monitor] Respiratory 24 Rate Blood Pressure 143/66 134/68 123/65 O2 Sat by Pulse 100 100 99 Oximetry 06/27/21 06/27/21 06/27/21 05:16 05:30 05:45 Temperature Pulse Rate 92 H 71 80 Pulse Rate [ From Monitor] Respiratory 24 24 Rate Blood Pressure 130/70 101/56 147/60 O2 Sat by Pulse 99 100 100 Oximetry 06/27/21 06/27/21 06/27/21 06:00 06:15 06:31 Temperature Pulse Rate 83 111 H 77 Pulse Rate [ From Monitor] Respiratory 24 24 Rate Blood Pressure 147/60 117/72 142/63 O2 Sat by Pulse 100 100 100 Oximetry 06/27/21 06/27/21 06/27/21 06:45 07:01 07:15 Temperature Pulse Rate 77 90 92 H Pulse Rate [ From Monitor] Respiratory 24 24 Rate Blood Pressure 144/65 76/43 83/47 O2 Sat by Pulse 100 100 100 Oximetry 06/27/21 06/27/21 06/27/21 07:30 07:45 08:00 Temperature 99.1 F Pulse Rate 94 H 88 94 H Pulse Rate [ From Monitor] Respiratory 24 24 24 Rate Blood Pressure 89/48 111/55 98/51 O2 Sat by Pulse 100 98 Oximetry 06/27/21 06/27/21 06/27/21 08:15 08:30 08:45 Temperature Pulse Rate 99 H 99 H 95 H Pulse Rate [ From Monitor] Respiratory 25 H 25 H 24 Rate Blood Pressure 104/53 91/54 118/64 O2 Sat by Pulse 98 98 99 Oximetry 06/27/21 06/27/21 06/27/21 09:00 09:15 09:19 Temperature Pulse Rate 97 H 103 H 96 H Pulse Rate [ From Monitor] Respiratory 24 24 Rate Blood Pressure 109/55 107/59 107/59 O2 Sat by Pulse 99 99 100 Oximetry 06/27/21 06/27/21 06/27/21 09:30 09:45 10:00 Temperature Pulse Rate 96 H 95 H 98 H Pulse Rate [ From Monitor] Respiratory 25 H 25 H 24 Rate Blood Pressure 105/53 107/56 101/55 O2 Sat by Pulse 100 99 99 Oximetry 06/27/21 06/27/21 06/27/21 10:15 10:30 10:45 Temperature Pulse Rate 97 H 100 H 105 H Pulse Rate [ From Monitor] Respiratory 24 24 22 Rate Blood Pressure 106/55 99/56 92/53 O2 Sat by Pulse 98 98 98 Oximetry 06/27/21 06/27/21 06/27/21 11:00 11:15 11:30 Temperature Pulse Rate 95 H 101 H 100 H Pulse Rate [ From Monitor] Respiratory 24 24 24 Rate Blood Pressure 95/52 110/58 105/55 O2 Sat by Pulse 98 97 99 Oximetry 06/27/21 12:31 Temperature Pulse Rate 98 H Pulse Rate [ From Monitor] Respiratory Rate Blood Pressure 106/58 O2 Sat by Pulse 98 Oximetry - General Appearance General appearance: chronically ill, intubated, frail EENT: ATNC Neck: no JVD Respiratory: Present: Clear to Ascultation Cardiology: regular Gastrointestinal: normal Integumentary: no rash Musculoskeletal: deferred Psychiatric: cooperative - Lab 06/27/21 06:00 06/27/21 06:00 Most recent lab results ABG pH 7.480 (7.320-7.450) H 06/27/21 05:06 ABG pCO2 35.8 mm Hg 06/26/21 10:00 ABG pO2 125.4 mm Hg (80.0-90.0) H 06/26/21 10:00 ABG HCO3 25.3 mmol/L (20.0-26.0) 06/26/21 10:00 ABG O2 Saturation 98.0 (0-100) 06/27/21 05:06 Calcium 8.6 mg/dL (8.4-10.2) 06/27/21 06:00 Phosphorus 4.70 mg/dL (2.5-4.5) H 06/25/21 22:55 Magnesium 1.90 mg/dL (1.7-2.3) 06/25/21 22:55 Urine Sodium 25 mmol/L 06/22/21 11:47 - Allied health notes Allied health notes reviewed: nursing Medications & Allergies - Medications Allergies/Adverse Reactions: Allergies No Known Allergies Allergy (Verified 06/26/21 16:15) Home Medications: Home Medications Medication Instructions Recorded Confirmed Last Taken Type Atenolol/Chlorthalidone [Tenoretic 1 tab PO DAILY 06/22/21 06/22/21 Unknown History 50-25] Clopidogrel [Plavix] 75 mg PO DAILY 06/22/21 06/22/21 Unknown History Glimepiride [Amaryl] 2 mg PO QAM 06/22/21 06/22/21 Unknown History Pioglitazone [Actos] 15 mg PO DAILY 06/22/21 06/22/21 Unknown History Pravastatin [Pravachol] 40 mg PO QHS 06/22/21 06/22/21 Unknown History lisinopriL [Zestril TAB] 5 mg PO DAILY 06/22/21 06/22/21 Unknown History Active Medications: Generic Name Dose Route Start Last Admin Trade Name Freq PRN Reason Stop Dose Admin Acetaminophen 650 mg 06/22/21 22:21 06/23/21 12:13 Acetaminophen 325 Mg Tab PO 650 mg Q4H PRN Administration Pain MILD(1-3)/Fever >100.5/NAVA Lipase/Protease/Amylase 1 each 06/26/21 11:31 Lipase 10,500/Protease 25,000/Amylase 43,750 (Units) Dr Castellanos FEEDTUBE PRN PRN For Clogged Feeding Tube Clopidogrel Bisulfate 75 mg 06/23/21 10:00 06/27/21 09:17 Clopidogrel 75 Mg Tab PO 75 mg DAILY JUDY Administration Docusate Sodium 100 mg 06/25/21 22:00 06/27/21 09:17 Docusate Sodium 100 Mg/10 Ml Oral Liqd PO 100 mg BID JUDY Administration Famotidine 20 mg 06/28/21 10:00 Famotidine 20 Mg Tab PO QDAY JUDY Fentanyl 50 mcg 06/26/21 04:27 Fentanyl 100 Mcg/2 Ml Inj IV Q10MIN PRN ANALGESIA Hydrocortisone Sodium Succinate 60 mg 06/26/21 22:00 06/27/21 08:15 Hydrocortisone Sod Succ 100 Mg/2 Ml Vial IV 60 mg Q8HR JUDY Administration Heparin Sodium/Sodium Chloride 25,000 unit in 500 mls @ 26 mls/hr 06/25/21 13:00 06/27/21 10:22 Heparin/ 0.45% Nacl-25,000 Unit/500 Ml IV 1,200 units/hr TITR JUDY 24 mls/hr Administration Protocol 1,300 UNITS/HR NORepinephrine/NS 8 MG-250 ML 8 mg in 250 mls @ 3.75 mls/hr 06/25/21 23:00 06/27/21 07:51 Norepinephrine/Ns 8 Mg-250 Ml (Double Conc) IV 4 mcg/min TITRATE JUDY 7.5 mls/hr Titration Protocol 2 MCG/MIN Fentanyl Citrate 2,000 mcg in 100 mls @ 4.309 mls/hr 06/26/21 05:00 06/27/21 04:42 Fentanyl Drip Premix IV 0 mcg/kg/hr TITR JUDY 0 mls/hr Titration Protocol 1 MCG/KG/HR Vasopressin 20 unit/ Sodium 101 mls @ 9.09 mls/hr 06/26/21 10:00 06/26/21 22:47 Chloride IV 0.03 units/min TITR JUDY 9.09 mls/hr Administration Protocol 0.03 UNITS/MIN Cefepime HCl 2 gm in 100 mls @ 200 mls/hr 06/26/21 10:00 06/27/21 09:16 Cefepime/Ns 2 Gm/100 Ml IV 200 mls/hr Q12H JUDY Administration Protocol Vancomycin HCl 1,250 mg/ 275 mls @ 166.667 mls/hr 06/27/21 00:00 06/27/21 05:11 Sodium Chloride IV 166.667 mls/hr Q12H JUDY Administration Sodium Chloride 1,000 mls @ 100 mls/hr 06/26/21 11:00 06/27/21 06:49 Nacl 0.9% 1000 Ml IV 100 mls/hr DIRECT JUDY Administration Insulin Glargine 15 units 06/27/21 22:00 Insulin Glargine 100 Units/Ml SUB-Q QHS JUDY Insulin Human Lispro 0 unit 06/26/21 12:00 06/27/21 05:44 Insulin Lispro 100 Unit/Ml SUB-Q 8 unit Q6HR JUDY Administration Protocol Metoclopramide HCl 10 mg 06/22/21 22:21 Metoclopramide 10 Mg/2 Ml Inj IV Q6H PRN Nausea And Vomiting Ondansetron HCl 4 mg 06/22/21 22:21 Ondansetron 4 Mg/2 Ml Inj IV Q8H PRN Nausea And Vomiting Pravastatin Sodium 40 mg 06/23/21 22:00 06/26/21 22:24 Pravastatin 40 Mg Tab PO 40 mg QHS JUDY Administration Simple Syrup 15 ml 06/26/21 11:31 Simple Syrup 15 Ml FEEDTUBE PRN PRN Hypoglycemia Simple Syrup 30 ml 06/26/21 11:31 Simple Syrup 15 Ml FEEDTUBE PRN PRN Hypoglycemia Sodium Bicarbonate 325 mg 06/26/21 11:31 Sodium Bicarbonate 325 Mg Tab FEEDTUBE PRN PRN For Clogged Feeding Tube Sodium Chloride 10 ml 06/23/21 10:00 06/27/21 09:28 Sodium Chloride 0.9% 10 Ml Flush Syringe IV 10 ml BID JUDY Administration Sodium Chloride 10 ml 06/22/21 22:21 Sodium Chloride 0.9% 10 Ml Flush Syringe IV PRN PRN LINE FLUSH
--- NOTE | 2021-06-27 17:41 | Progress Note ---
Assessment and Plan Acute Encephalopathy Symptomatic Hyponatremia Acute Respiratory Failure PNA UTI Hypotension AF with RVR (new onset) Hypokalemia (resolved) Hypomagnesemia (resolved) H/o HTN DM2 H/o Tobacco Abuse Plan: Echo reviewed - EF 60-65%, no significant valvular abnormalities. Wean vent and pressors as tolerated. May resume Amiodarone gtt for AF with RVR sustaining > 130bpm if needed. Continue anticoagulation with heparin gtt at this time. Ultimately plan to transition to OAC (Eliquis) pending clinical course. Pt seen in conjunction with Dr. Romano, who agrees with the assessment and plan of care. - Patient Problems (1) Atrial fibrillation with RVR Current Visit: Yes Status: Acute Subjective Date of service: 06/27/21 Principal diagnosis: AF w RVR Interval history: Remains on mechanical ventilation. Responsive. Requiring minimal vasopressor support. In SR 90-100s on tele. Objective Last Vital Signs Temp 99.0 F 06/27/21 12:00 Pulse 102 H 06/27/21 17:15 Resp 24 06/27/21 17:15 BP 93/56 06/27/21 17:15 Pulse Ox 94 06/27/21 17:15 - Physical Examination General: Other (intubated) HEENT: Positive: Normocephaly, Mucus Membranes Dry Neck: Positive: neck supple, trachea midline Cardiac: Positive: Reg Rate and Rhythm Lungs: Positive: Ventilated Respirations Neuro: Positive: Other (intubated) Abdomen: Positive: Soft Skin: Negative: Rash Extremities: Present: lower extr. pulses. Absent: edema - Labs and Meds CBC 06/27/21 Range/Units 06:00 WBC 12.0 H (4.5-11.0) K/mm3 RBC 3.67 (3.65-5.03) M/mm3 Hgb 10.5 (10.1-14.3) gm/dl Hct 33.3 (30.3-42.9) % Plt Count 398 (140-440) K/mm3 Comprehensive Metabolic Panel 06/26/21 06/26/21 06/27/21 Range/Units 16:06 23:32 06:00 Sodium 128 L 126 L 128 L (137-145) mmol/L Potassium 3.8 3.6 3.8 (3.6-5.0) mmol/L Chloride 88.6 L 89.2 L 91.4 L (98-107) mmol/L Carbon Dioxide 28 24 24 (22-30) mmol/L BUN 32 H 34 H 36 H (7-17) mg/dL Creatinine 1.0 0.8 0.8 (0.6-1.2) mg/dL Glucose 161 H 257 H 346 H (65-100) mg/dL Calcium 9.2 8.8 8.6 (8.4-10.2) mg/dL - Imaging and Cardiology EKG: report reviewed, image reviewed Echo: report reviewed - Telemetry EKG Rhythm: Sinus Rhythm - EKG Supraventricular dysrhythmia: atrial fibrillation Ventricular dysrhythmias: ventricular premature com Myocardial infarction: septal AK (old age or ind, anterior AK (old age or i - Allied health notes Allied health notes reviewed: nursing
--- NOTE | 2021-06-27 18:25 | Progress Note ---
Assessment and Plan Assessment and plan: This is a 55-year-old female with HTN, tobacco abuse and diabetes mellitus admitted for severe hyponatremia, hypochloremia and hypokalemia, acute proximal respiratory failure, mini seizure-like activity and urinary tract infection. Neuro: Acute metabolic encephalopathy -Reported seizure-like activity and admitted by family however this could be related to her severe hyponatremia -No witnessed seizure activity after admit -Avoid delirium -S/p 3% saline -Reorientation as needed -Maintain sleep-wake cycle -As needed analgesia -Sedated with fentanyl -RASS goal 0 to -1 -Daily SBT and SAT when appropriate -Bilateral restraints in place for safety Cardio: Atrial fibrillation, h/o HTN -Cardiology consulted, appreciate recommendations -Amiodarone drip -stopped d/t hypotension and SB -Echocardiogram shows Normal bivalve function, LVEF 60 to 65% -Blood pressure monitoring protocol -Vasopressor support with Levophed and vasopressin -Map goal greater than 65 -Restarted home Plavix -Heparin drip for anticoagulation and statin -hold home antihtn regimen d/t hypotension -Started on stress dose steroids due to labile blood pressure Respiratory: Acute hypercarbic respiratory failure -s/p NRB -Intubated on 06/25 with 7.50 ETT at 22 at the lips -A.m. vent settings: Tidal volume 450, rate 24, PEEP 8, FiO2 40% -See RT notes for titration -A.m. ABG and CXR noted -VAP bundle -SPO2 monitoring GI: NAD -24 hours + 2439 mL -Nutrition consult for tube feeding -BR: colace -PPI : Severe hyponatremia (improving), acute kidney injury, hypochloremia -Nephrology consulted, appreciate recommendations -S/p 3% saline -S/p Samsca -MIVF and albumin per nephrology -Strict intake and output -Trend BMP Heme: Leukocytosis -Trend CBC -Transfuse hemoglobin less than 7 -Heparin drip -SCDs to bilateral lower extremity while in bed ID: Urinary tract infection, Community-acquired pneumonia -Antibiotic therapy: Cefepime and vancomycin -Blood culture x2 -Sputum culture -Monitor WBC and temp curve -UA with pyuria -CXR on admit with PNA Endo: h/o DM type II -SSI -Accu-Cheks AC at bedtime -Avoid hypoglycemia -Hemoglobin A1c 6.6 -Long acting insuling, titrate as needed The high probability of a clinically significant, sudden or life threatening deterioration of the [renal] system(s) required my full and direct attention, intervention and personal management. The aggregate critical care time was [60] minutes. This time is in addition to time spent performing reported procedures but includes the following: [x] Data Review and interpretation [x] Patient assessment and monitoring of vital signs [x] Documentation [x] Medication orders and management Disposition Plan: icu Total Time Spent with Patient (Minutes): 60 History Interval history: This is a 55-year-old female with hypertension, atrial fibrillation, tobacco abuse and diabetes mellitus who presents the emergency department on 06/22 for severe weakness, altered mental status and witnessed seizure-like activity. CXR showed left basilar airspace opacity and work-up in the emergency department revealed severe hyponatremia, hypokalemia, severe hypochloremia, metabolic alkalosis acute hypoxic respiratory failure, witnessed seizure activity and urinary tract infection. Patient was admitted to the hospital service with consults to nephrology and [facility]. 06/23/2021 Patient symptomatically better Sodium is 117 06/24: Sodium slightly better however we will still admit to ICU, no acute vents overnight 06/25: Patient noted to be in atrial fibrillation upon transfer to ICU and stat ECG revealed atrial fibrillation. Cardiology was consulted. Patient restarted on home beta-jeimy and was eventually changed to amiodarone. She was started on heparin drip. Patient will be transferred to the telemetry floor. 06/26: Yesterday evening transfer was held and ABG read which showed hypercapnia and patient was intubated. Patient became bradycardic and hypotensive and was started on Levophed. This morning patient Levophed was in the high 20s therefore vasopressin was added. After addition of vasopressin and was able to wean Levophed. Stress dose steroids started due to labile pressures. Broad- spectrum antibiotics started. Patient started on albumin and normal saline per nephrology. Cotisol ordered 06/27/2021: nephro started MIVF and does not see any indication fro hypertonic at this time. SR noted this morning. Remains on vasopression. Likely PSV in the AM. increase in insulin Hospitalist Physical - Constitutional Vitals: Temp Pulse Resp BP Pulse Ox 99.0 F 102 H 24 93/56 94 06/27/21 12:00 06/27/21 17:15 06/27/21 17:15 06/27/21 17:15 06/27/21 17:15 General appearance: Present: no acute distress - EENT Eyes: Present: PERRL, EOM intact ENT: hearing intact, clear oral mucosa, dentition normal - Neck Neck: Present: normal ROM - Respiratory Respiratory effort: normal Respiratory: bilateral: diminished - Cardiovascular Rhythm: regular Heart Sounds: Present: S1 & S2. Absent: systolic murmur, diastolic murmur - Extremities Extremities: no ischemia, pulses intact, pulses symmetrical, No edema, normal temperature, normal color Peripheral Pulses: within normal limits - Abdominal General gastrointestinal: soft, non-tender, non-distended, normal bowel sounds - Integumentary Integumentary: Present: warm, dry - Psychiatric Psychiatric: other - Neurologic Neurologic: other - Allied Health Allied health notes reviewed: nursing, RT HEART Score - HEART Score Troponin: Troponin T < 0.010 ng/mL (0.00-0.029) 06/22/21 07:58 Results - Labs CBC & Chem 7: 06/27/21 06:00 06/27/21 06:00 Labs: Laboratory Last Values WBC 12.0 K/mm3 (4.5-11.0) H 06/27/21 06:00 RBC 3.67 M/mm3 (3.65-5.03) 06/27/21 06:00 Hgb 10.5 gm/dl (10.1-14.3) 06/27/21 06:00 Hct 33.3 % (30.3-42.9) 06/27/21 06:00 MCV 91 fl (79-97) 06/27/21 06:00 MCH 29 pg (28-32) 06/27/21 06:00 MCHC 32 % (30-34) 06/27/21 06:00 RDW 13.4 % (13.2-15.2) 06/27/21 06:00 Plt Count 398 K/mm3 (140-440) 06/27/21 06:00 Lymph % (Auto) 5.8 % (13.4-35.0) L 06/23/21 05:29 [place] % (Auto) 6.9 % (0.0-7.3) 06/23/21 05:29 Eos % (Auto) 0.1 % (0.0-4.3) 06/23/21 05:29 Baso % (Auto) 0.1 % (0.0-1.8) 06/23/21 05:29 Lymph # (Auto) 0.7 K/mm3 (1.2-5.4) L 06/23/21 05:29 [place] # (Auto) 0.9 K/mm3 (0.0-0.8) H 06/23/21 05:29 Eos # (Auto) 0.0 K/mm3 (0.0-0.4) 06/23/21 05:29 Baso # (Auto) 0.0 K/mm3 (0.0-0.1) 06/23/21 05:29 Add Manual Diff Complete 06/25/21 22:55 Total Counted 100 06/25/21 22:55 Seg Neutrophils % 87.1 % (40.0-70.0) H 06/23/21 05:29 Seg Neuts % (Manual) 91.0 % (40.0-70.0) H 06/25/21 22:55 Lymphocytes % (Manual) 6.0 % (13.4-35.0) L 06/25/21 22:55 Monocytes % (Manual) 3.0 % (0.0-7.3) 06/25/21 22:55 Metamyelocytes % 1.0 % 06/24/21 05:33 Nucleated RBC % Not Reportable 06/25/21 22:55 Seg Neutrophils # 10.8 K/mm3 (1.8-7.7) H 06/23/21 05:29 Seg Neutrophils # Man 13.5 K/mm3 (1.8-7.7) H 06/25/21 22:55 Band Neutrophils # 0.0 K/mm3 06/25/21 22:55 Lymphocytes # (Manual) 0.9 K/mm3 (1.2-5.4) L 06/25/21 22:55 Abs React Lymphs (Man) 0.0 K/mm3 06/25/21 22:55 Monocytes # (Manual) 0.4 K/mm3 (0.0-0.8) 06/25/21 22:55 Eosinophils # (Manual) 0.0 K/mm3 (0.0-0.4) 06/25/21 22:55 Basophils # (Manual) 0.0 K/mm3 (0.0-0.1) 06/25/21 22:55 Metamyelocytes # 0.0 K/mm3 06/25/21 22:55 Myelocytes # 0.0 K/mm3 06/25/21 22:55 Promyelocytes # 0.0 K/mm3 06/25/21 22:55 Blast Cells # 0.0 K/mm3 06/25/21 22:55 WBC Morphology Not Reportable 06/25/21 22:55 Hypersegmented Neuts Not Reportable 06/25/21 22:55 Hyposegmented Neuts Not Reportable 06/25/21 22:55 Hypogranular Neuts Not Reportable 06/25/21 22:55 Smudge Cells Not Reportable 06/25/21 22:55 Toxic Granulation Not Reportable 06/25/21 22:55 Toxic Vacuolation Not Reportable 06/25/21 22:55 Dohle Bodies Not Reportable 06/25/21 22:55 Pelger-Huet Anomaly Not Reportable 06/25/21 22:55 Otf Rods Not Reportable 06/25/21 22:55 Platelet Estimate Consistent w auto 06/25/21 22:55 Clumped Platelets Not Reportable 06/25/21 22:55 Plt Clumps, EDTA Not Reportable 06/25/21 22:55 Large Platelets Not Reportable 06/25/21 22:55 Giant Platelets Not Reportable 06/25/21 22:55 Platelet Satelliting Not Reportable 06/25/21 22:55 Plt Morphology Comment Not Reportable 06/25/21 22:55 RBC Morphology Normal 06/25/21 22:55 Dimorphic RBCs Not Reportable 06/25/21 22:55 Polychromasia Not Reportable 06/25/21 22:55 Hypochromasia Not Reportable 06/25/21 22:55 Poikilocytosis Not Reportable 06/25/21 22:55 Anisocytosis Not Reportable 06/25/21 22:55 Microcytosis Not Reportable 06/25/21 22:55 Macrocytosis Not Reportable 06/25/21 22:55 Spherocytes Not Reportable 06/25/21 22:55 Pappenheimer Bodies Not Reportable 06/25/21 22:55 Sickle Cells Not Reportable 06/25/21 22:55 Target Cells Not Reportable 06/25/21 22:55 Tear Drop Cells Not Reportable 06/25/21 22:55 Ovalocytes Not Reportable 06/25/21 22:55 Helmet Cells Not Reportable 06/25/21 22:55 Bridges-Padroni Bodies Not Reportable 06/25/21 22:55 [place] Rings Not Reportable 06/25/21 22:55 [place] Cells Not Reportable 06/25/21 22:55 Bite Cells Not Reportable 06/25/21 22:55 Crenated Cell Not Reportable 06/25/21 22:55 Elliptocytes Not Reportable 06/25/21 22:55 Acanthocytes (Spur) Not Reportable 06/25/21 22:55 Rouleaux Not Reportable 06/25/21 22:55 Hemoglobin C Crystals Not Reportable 06/25/21 22:55 Schistocytes Not Reportable 06/25/21 22:55 Malaria parasites Not Reportable 06/25/21 22:55 Steve Bodies Not Reportable 06/25/21 22:55 Hem Pathologist Commnt No 06/25/21 22:55 PT 12.6 Sec. (12.2-14.9) 06/25/21 13:42 INR 0.85 (0.87-1.13) L 06/25/21 13:42 APTT 31.0 Sec. (24.2-36.6) 06/25/21 13:42 Thrombin Time 15.9 Sec. (15.1-19.6) 06/22/21 07:58 Heparin Anti-Xa Level 0.47 U.I./ml (0.3-0.7) 06/27/21 13:58 ABG pH 7.480 (7.320-7.450) H 06/27/21 05:06 POC ABG pCO2 38.0 mmHg (32.0-48.0) 06/27/21 05:06 ABG pCO2 35.8 mm Hg 06/26/21 10:00 POC ABG pO2 93.6 mmHg (83-108) 06/27/21 05:06 ABG pO2 125.4 mm Hg (80.0-90.0) H 06/26/21 10:00 POC ABG HCO3 27.7 06/27/21 05:06 ABG HCO3 25.3 mmol/L (20.0-26.0) 06/26/21 10:00 ABG O2 Saturation 98.0 (0-100) 06/27/21 05:06 ABG O2 Content 17.1 (0.0-44) 06/26/21 10:00 POC ABG Base Excess 4.0 06/27/21 05:06 ABG Base Excess 1.9 mmol/L (-2.0-3.0) 06/26/21 10:00 ABG Hemoglobin 11.9 (12.0-17.5) L 06/27/21 05:06 ABG Oxyhemoglobin 96.8 (94-98) 06/27/21 05:06 ABG Carboxyhemoglobin 1.1 % (0.0-5.0) 06/26/21 10:00 ABG Methemoglobin 0.3 (0.0-1.5) 06/27/21 05:06 ABG Sodium 123.5 mmol/L (136.0-145.0) L 06/27/21 05:06 ABG Potassium 3.7 mmol/L (3.40-4.50) 06/27/21 05:06 ABG Chloride 91.0 mmol/L (98-107) L 06/27/21 05:06 ABG Glucose 328 mg/dL (65-95) H 06/27/21 05:06 Oxyhemoglobin 97.0 % (95.0-99.0) 06/26/21 10:00 Carboxyhemoglobin 0.9 (0.5-1.5) 06/27/21 05:06 FiO2 50 % 06/26/21 10:00 FiO2 % 40.0 06/27/21 05:06 Sodium 128 mmol/L (137-145) L 06/27/21 06:00 Potassium 3.8 mmol/L (3.6-5.0) 06/27/21 06:00 Chloride 91.4 mmol/L (98-107) L 06/27/21 06:00 Carbon Dioxide 24 mmol/L (22-30) 06/27/21 06:00 Anion Gap 16 mmol/L 06/27/21 06:00 BUN 36 mg/dL (7-17) H 06/27/21 06:00 Creatinine 0.8 mg/dL (0.6-1.2) 06/27/21 06:00 Estimated GFR > 60 ml/min 06/27/21 06:00 BUN/Creatinine Ratio 45 % 06/27/21 06:00 Glucose 346 mg/dL (65-100) H 06/27/21 06:00 POC Glucose 301 mg/dL (70-105) H 06/27/21 17:06 Hemoglobin A1c 6.6 % (4-6) H 06/23/21 05:29 Osmolality 240 Mosm/kg 06/22/21 23:24 Lactic Acid 1.60 mmol/L (0.7-2.0) 06/25/21 22:55 Uric Acid 3.2 mg/dL (3.5-7.6) L 06/23/21 05:29 Calcium 8.6 mg/dL (8.4-10.2) 06/27/21 06:00 Phosphorus 4.70 mg/dL (2.5-4.5) H 06/25/21 22:55 Magnesium 1.90 mg/dL (1.7-2.3) 06/25/21 22:55 Ferritin 102.1 ng/mL (10.0-200.0) 06/22/21 08:56 Total Bilirubin 0.30 mg/dL (0.1-1.2) 06/26/21 04:32 Direct Bilirubin < 0.2 mg/dL (0-0.2) 06/26/21 04:32 Indirect Bilirubin 0.1 mg/dL 06/26/21 04:32 AST 33 units/L (5-40) 06/26/21 04:32 ALT 20 units/L (7-56) 06/26/21 04:32 Alkaline Phosphatase 62 units/L (35-129) 06/26/21 04:32 Lactate Dehydrogenase 220 units/L (91-180) H 06/22/21 08:56 Troponin T < 0.010 ng/mL (0.00-0.029) 06/22/21 07:58 C-Reactive Protein 5.40 mg/dL (0.00-1.30) H 06/22/21 08:56 Total Protein 5.9 g/dL (6.3-8.2) L 06/26/21 04:32 Albumin 2.8 g/dL (3.9-5) L 06/26/21 04:32 Albumin/Globulin Ratio 0.9 % 06/26/21 04:32 Procalcitonin < 0.05 ng/mL (<0.15) 06/22/21 08:56 TSH 1.070 mlU/mL (0.270-4.200) 06/22/21 07:58 Total Cortisol 49.6 mcg/dL () 06/22/21 11:28 Arterial Blood Glucose 328 mg/dL (65-95) H 06/27/21 05:06 Arterial Blood Ionized Calcium 4.9 mg/dL (4.6-5.3) 06/27/21 05:06 Urine Color Yellow (Yellow) 06/26/21 09:48 Urine Turbidity Slightly-cloudy (Clear) 06/26/21 09:48 Urine pH 6.0 (5.0-7.0) 06/26/21 09:48 Ur Specific [place] 1.014 (1.003-1.030) 06/26/21 09:48 Urine Protein 30 mg/dl mg/dL (Negative) 06/26/21 09:48 Urine Glucose (UA) 50 mg/dL (Negative) 06/26/21 09:48 Urine Ketones 20 mg/dL (Negative) 06/26/21 09:48 Urine Blood Mod (Negative) 06/26/21 09:48 Urine Nitrite Neg (Negative) 06/26/21 09:48 Urine Bilirubin Neg (Negative) 06/26/21 09:48 Urine Urobilinogen < 2.0 mg/dL (<2.0) 06/26/21 09:48 Ur Leukocyte Esterase Mod (Negative) 06/26/21 09:48 Urine WBC (Auto) 69.0 /HPF (0.0-6.0) H 06/26/21 09:48 Urine RBC (Auto) 29.0 /HPF (0.0-6.0) 06/26/21 09:48 U Epithel Cells (Auto) 1.0 /HPF (0-13.0) 06/26/21 09:48 Urine Bacteria (Auto) 4+ /HPF (Negative) 06/26/21 09:48 Ur Transition Epith Cell 1 /HPF 06/22/21 11:47 Hyaline Casts 5 /LPF 06/22/21 11:47 Urine Mucus Few /HPF 06/26/21 09:48 Urine Yeast (Budding) 3+ /HPF 06/26/21 09:48 Urine Osmolality 571 Mosm/kg 06/22/21 11:47 Urine Sodium 25 mmol/L 06/22/21 11:47 Coronavirus (PCR) Negative (Negative) 06/22/21 Unknown Microbiology: Microbiology 06/26/21 16:06 Peripheral/Venous Blood Culture - Preliminary NO GROWTH AFTER 24 HOURS 06/26/21 16:06 Peripheral/Venous Blood Culture - Preliminary NO GROWTH AFTER 24 HOURS 06/22/21 08:56 Peripheral/Venous Blood Culture - Final NO GROWTH AFTER 5 DAYS 06/22/21 08:56 Peripheral/Venous Blood Culture - Final NO GROWTH AFTER 5 DAYS 06/26/21 09:48 Urine,Clean Catch Urine Culture - Preliminary Active Medications - Current Medications Current Medications: Generic Name Dose Route Start Last Admin Trade Name Freq PRN Reason Stop Dose Admin Acetaminophen 650 mg 06/22/21 22:21 06/23/21 12:13 Acetaminophen 325 Mg Tab PO 650 mg Q4H PRN Administration Pain MILD(1-3)/Fever >100.5/NAVA Lipase/Protease/Amylase 1 each 06/26/21 11:31 Lipase 10,500/Protease 25,000/Amylase 43,750 (Units) Dr Castellanos FEEDTUBE PRN PRN For Clogged Feeding Tube Clopidogrel Bisulfate 75 mg 06/23/21 10:00 06/27/21 09:17 Clopidogrel 75 Mg Tab PO 75 mg DAILY JUDY Administration Docusate Sodium 100 mg 06/25/21 22:00 06/27/21 09:17 Docusate Sodium 100 Mg/10 Ml Oral Liqd PO 100 mg BID JUDY Administration Famotidine 20 mg 06/28/21 10:00 Famotidine 20 Mg Tab PO QDAY JUDY Fentanyl 50 mcg 06/26/21 04:27 Fentanyl 100 Mcg/2 Ml Inj IV Q10MIN PRN ANALGESIA Hydrocortisone Sodium Succinate 60 mg 06/26/21 22:00 06/27/21 14:35 Hydrocortisone Sod Succ 100 Mg/2 Ml Vial IV 60 mg Q8HR JUDY Administration Heparin Sodium/Sodium Chloride 25,000 unit in 500 mls @ 26 mls/hr 06/25/21 13:00 06/27/21 14:43 Heparin/ 0.45% Nacl-25,000 Unit/500 Ml IV 1,100 units/hr TITR JUDY 22 mls/hr Titration Protocol 1,300 UNITS/HR NORepinephrine/NS 8 MG-250 ML 8 mg in 250 mls @ 3.75 mls/hr 06/25/21 23:00 06/27/21 17:07 Norepinephrine/Ns 8 Mg-250 Ml (Double Conc) IV 0 mcg/min TITRATE JUDY 0 mls/hr Titration Protocol 2 MCG/MIN Fentanyl Citrate 2,000 mcg in 100 mls @ 4.309 mls/hr 06/26/21 05:00 06/27/21 04:42 Fentanyl Drip Premix IV 0 mcg/kg/hr TITR JUDY 0 mls/hr Titration Protocol 1 MCG/KG/HR Vasopressin 20 unit/ Sodium 101 mls @ 9.09 mls/hr 06/26/21 10:00 06/26/21 22:47 Chloride IV 0.03 units/min TITR JUDY 9.09 mls/hr Administration Protocol 0.03 UNITS/MIN Cefepime HCl 2 gm in 100 mls @ 200 mls/hr 06/26/21 10:00 06/27/21 09:16 Cefepime/Ns 2 Gm/100 Ml IV 200 mls/hr Q12H JUDY Administration Protocol Vancomycin HCl 1,250 mg/ 275 mls @ 166.667 mls/hr 06/27/21 00:00 06/27/21 16:40 Sodium Chloride IV 166.667 mls/hr Q12H JUDY Administration Sodium Chloride 1,000 mls @ 100 mls/hr 06/26/21 11:00 06/27/21 17:12 Nacl 0.9% 1000 Ml IV 100 mls/hr DIRECT JUDY Administration Insulin Glargine 15 units 06/27/21 22:00 Insulin Glargine 100 Units/Ml SUB-Q QHS [facility] Insulin Human Lispro 0 unit 06/26/21 12:00 06/27/21 17:11 Insulin Lispro 100 Unit/Ml SUB-Q 8 unit Q6HR [facility] Administration Protocol Metoclopramide HCl 10 mg 06/22/21 22:21 Metoclopramide 10 Mg/2 Ml Inj IV Q6H PRN Nausea And Vomiting Ondansetron HCl 4 mg 06/22/21 22:21 Ondansetron 4 Mg/2 Ml Inj IV Q8H PRN Nausea And Vomiting Pravastatin Sodium 40 mg 06/23/21 22:00 06/26/21 22:24 Pravastatin 40 Mg Tab PO 40 mg QHS JUDY Administration Simple Syrup 15 ml 06/26/21 11:31 Simple Syrup 15 Ml FEEDTUBE PRN PRN Hypoglycemia Simple Syrup 30 ml 06/26/21 11:31 Simple Syrup 15 Ml FEEDTUBE PRN PRN Hypoglycemia Sodium Bicarbonate 325 mg 06/26/21 11:31 Sodium Bicarbonate 325 Mg Tab FEEDTUBE PRN PRN For Clogged Feeding Tube Sodium Chloride 10 ml 06/23/21 10:00 06/27/21 09:28 Sodium Chloride 0.9% 10 Ml Flush Syringe IV 10 ml BID JUDY Administration Sodium Chloride 10 ml 06/22/21 22:21 Sodium Chloride 0.9% 10 Ml Flush Syringe IV PRN PRN LINE FLUSH Nutrition/Malnutrition Assess - Dietary Evaluation Nutrition/Malnutrition Findings: Nutrition Notes Start: 06/26/21 11:01 Freq: Status: Active Protocol: Document 06/26/21 11:01 VINCENZO (Rec: 06/26/21 11:34 VINCENZO [email or web address]) Nutrition Notes Need for Assessment generated from: MD Order Initial or Follow up Assessment Current Diagnosis Diabetes,Hypertension Other Pertinent Diagnosis CA Pneumonia, Hyponatremia, Atr Fib w/RVR, Ac Met Encephalopathy. Current Diet NPO (since 06/25), TF-Osmolite 1.5 Volodymyr @ 43 ml/hr (since L 06/26). Labs/Tests 06/26: Na 123, Cl 79.2, BUN 26 , Glu 202, Tpro 5.9, Alb 2.8. Pertinent Medications 06/26: Nutritionally unremarkable. Height 5 ft 5 in Weight 86.183 kg [place] Body Weight (kg) 56.81 BMI 31.6 Weight change and time frame None reported at admission. Weight Status Obese Subjective/Other Information RD consult for evaluation of nutritional intake and write/ manage TF. Pt on mechanical ventilation. Pt sedated. Pt has missing teeth. Percent of energy/protein needs met: Pt currently on NPO. Burn Absent Trauma Absent GI Symptoms None Food Allergy No Skin Integrity/Comment Unspecified bruises. Current % PO Other Minimum of two criteria No #1 Nutrition Diagnosis Inadequate oral intake Etiology Pt 's worsening lethargy and respiratory distress. As Evidenced by Signs and Symptoms Pt on mechanical ventilation and sedated, request for write/manage TF. Is patient on ventilator? Yes Is Patient Ambulatory and/or Out of Bed No REE-([place]anna-St. Jeor-confined to bed) 1700.352 Kcal/Kg value to use for calculation 18 Approximate Energy Requirements Using 1551 kcal/Kg Calculation Used for Recommendations Kcal/kg Additional Notes Protein: 1-1.2 g/Kg; 72-86 g/ day. Fluids: 1 ml/Kcal, or as per MD. Nutrition Intervention Nutrition Support: Start Osmolite 1.5 Volodymyr @ 43 ml /hr. Flush: 130 ml water Q 4 hr. Kcal 1,551 Protein (gm) 65 Carbohydrates (gm) 211 Fat (gm) 51 Fluid (mL) 788 Fiber (gm) 0 % RDI: 100% Kcal; 90% AA. Goal #1 Provide at least 75% of energy /protein needs through Enteral Feeding during LOS. Follow-Up By: 06/29/21 Additional Comments Continue monitoring TF tolerance and BM.
[2021-06-27] MEDS: PRAVASTATIN 40 MG TAB PO SCH (21:40)
[2021-06-27] MEDS ORDERED: INSULIN GLARGINE 100 UNITS/ML SUB-Q SCH (22:00)
--- NOTE | 2021-06-27 22:35 | Progress Note ---
Assessment and Plan Imp: 1. UTI/CAP 2. Acute respiratory failure, hypoxia 3. Hyponatremia 4. Afib w/ RVR 5. Acute metabolic encephalopathy Rec: 1. PSV trials; turn PEEP to +6; possible extubation soon 2. Cont. ABX and stress-dosed steroids for now 3. TFs, DVT/GI PPx 4. Sodium corrected 5. Further plans pending clinical course 6. CCt 31 minutes 7. No family present Subjective Date of service: 06/27/21 Principal diagnosis: Acute respiratory failure Interval history: No events. PSV not done due to being on PEEP of +8. She cannot give history. Active Medications Acetaminophen (Acetaminophen 325 Mg Tab) 650 mg PO Q4H PRN PRN Reason: Pain MILD(1-3)/Fever >100.5/NAVA Last Admin: 06/23/21 12:13 Dose: 650 mg Documented by: Lipase/Protease/Amylase (Lipase 10,500/Protease 25,000/Amylase 43,750 (Units) Dr Castellanos) 1 each FEEDTUBE PRN PRN PRN Reason: For Clogged Feeding Tube Clopidogrel Bisulfate (Clopidogrel 75 Mg Tab) 75 mg PO DAILY [facility] Last Admin: 06/28/21 09:09 Dose: 75 mg Documented by: Docusate Sodium (Docusate Sodium 100 Mg/10 Ml Oral Liqd) 100 mg PO BID [facility] Last Admin: 06/28/21 09:09 Dose: 100 mg Documented by: Famotidine (Famotidine 20 Mg Tab) 20 mg PO QDAY [facility] Last Admin: 06/28/21 09:09 Dose: 20 mg Documented by: Fentanyl (Fentanyl 100 Mcg/2 Ml Inj) 50 mcg IV Q10MIN PRN PRN Reason: ANALGESIA Last Admin: 06/28/21 02:27 Dose: 50 mcg Documented by: Hydrocortisone Sodium Succinate (Hydrocortisone Sod Succ 100 Mg/2 Ml Vial) 60 mg IV Q12HR [facility] Heparin Sodium/Sodium Chloride (Heparin/ 0.45% Nacl-25,000 Unit/500 Ml) 25,000 unit in 500 mls @ 26 mls/hr IV TITR [facility]; Protocol Last Admin: 06/28/21 11:14 Dose: 1,100 units/hr, 22 mls/hr Documented by: NORepinephrine/NS 8 MG-250 ML (Norepinephrine/Ns 8 Mg-250 Ml (Double Conc)) 8 mg in 250 mls @ 3.75 mls/hr IV TITRATE [facility]; Protocol Last Titration: 06/27/21 17:07 Dose: 0 mcg/min, 0 mls/hr Documented by: Fentanyl Citrate (Fentanyl Drip Premix) 2,000 mcg in 100 mls @ 4.309 mls/hr IV TITR [facility]; Protocol Last Titration: 06/28/21 07:30 Dose: 0 mcg/kg/hr, 0 mls/hr Documented by: Vasopressin 20 unit/ Sodium (Chloride) 101 mls @ 9.09 mls/hr IV TITR [facility]; Protocol Last Titration: 06/28/21 07:30 Dose: 0 units/min, 0 mls/hr Documented by: Cefepime HCl (Cefepime/Ns 2 Gm/100 Ml) 2 gm in 100 mls @ 200 mls/hr IV Q12H [facility]; Protocol Last Admin: 06/28/21 09:18 Dose: 200 mls/hr Documented by: Sodium Chloride (Nacl 0.9% 1000 Ml) 1,000 mls @ 100 mls/hr IV DIRECT [facility] Last Admin: 06/28/21 04:13 Dose: 100 mls/hr Documented by: Amiodarone HCl 360 mg/ (Dextrose) 200 mls @ 33.333 mls/hr IV DIRECT [facility]; Protocol Insulin Glargine (Insulin Glargine 100 Units/Ml) 20 units SUB-Q QHS [facility] Insulin Human Lispro (Insulin Lispro 100 Unit/Ml) 0 unit SUB-Q Q6HR [facility]; Protocol Last Admin: 06/28/21 17:15 Dose: 4 unit Documented by: Metoclopramide HCl (Metoclopramide 10 Mg/2 Ml Inj) 10 mg IV Q6H PRN PRN Reason: Nausea And Vomiting Ondansetron HCl (Ondansetron 4 Mg/2 Ml Inj) 4 mg IV Q8H PRN PRN Reason: Nausea And Vomiting Pravastatin Sodium (Pravastatin 40 Mg Tab) 40 mg PO QHS [facility] Last Admin: 06/27/21 21:40 Dose: 40 mg Documented by: Simple Syrup (Simple Syrup 15 Ml) 15 ml FEEDTUBE PRN PRN PRN Reason: Hypoglycemia Simple Syrup (Simple Syrup 15 Ml) 30 ml FEEDTUBE PRN PRN PRN Reason: Hypoglycemia Sodium Bicarbonate (Sodium Bicarbonate 325 Mg Tab) 325 mg FEEDTUBE PRN PRN PRN Reason: For Clogged Feeding Tube Sodium Chloride (Sodium Chloride 0.9% 10 Ml Flush Syringe) 10 ml IV BID [facility] Last Admin: 06/28/21 09:10 Dose: 10 ml Documented by: Sodium Chloride (Sodium Chloride 0.9% 10 Ml Flush Syringe) 10 ml IV PRN PRN PRN Reason: LINE FLUSH Objective Vital Signs - 12hr 06/27/21 06/27/21 06/27/21 10:45 11:00 11:15 Temperature Pulse Rate 105 H 95 H 101 H Pulse Rate [ From Monitor] Respiratory 22 24 24 Rate Blood Pressure 92/53 95/52 110/58 O2 Sat by Pulse 98 98 97 Oximetry 06/27/21 06/27/21 06/27/21 11:30 11:45 12:00 Temperature 99.0 F Pulse Rate 100 H 99 H 90 Pulse Rate [ 92 H From Monitor] Respiratory 24 24 24 Rate Blood Pressure 105/55 108/58 106/52 O2 Sat by Pulse 99 99 98 Oximetry 06/27/21 06/27/21 06/27/21 12:15 12:30 12:31 Temperature Pulse Rate 102 H 99 H 98 H Pulse Rate [ From Monitor] Respiratory 25 H 23 Rate Blood Pressure 100/57 106/58 106/58 O2 Sat by Pulse 98 99 98 Oximetry 06/27/21 06/27/21 06/27/21 12:45 13:00 13:15 Temperature Pulse Rate 97 H 101 H 99 H Pulse Rate [ From Monitor] Respiratory 25 H 24 24 Rate Blood Pressure 98/54 101/54 91/52 O2 Sat by Pulse 97 95 94 Oximetry 06/27/21 06/27/21 06/27/21 13:31 13:45 14:01 Temperature Pulse Rate 104 H 99 H 113 H Pulse Rate [ From Monitor] Respiratory 24 24 24 Rate Blood Pressure 112/58 98/54 98/54 O2 Sat by Pulse 95 95 97 Oximetry 06/27/21 06/27/21 06/27/21 14:15 14:30 14:45 Temperature Pulse Rate 101 H 97 H 95 H Pulse Rate [ From Monitor] Respiratory 24 24 24 Rate Blood Pressure 118/50 109/52 111/53 O2 Sat by Pulse 96 96 96 Oximetry 06/27/21 06/27/21 06/27/21 15:00 15:15 15:30 Temperature Pulse Rate 95 H 98 H 93 H Pulse Rate [ From Monitor] Respiratory 24 24 24 Rate Blood Pressure 101/53 113/56 97/54 O2 Sat by Pulse 96 97 96 Oximetry 06/27/21 06/27/21 06/27/21 15:45 16:00 16:15 Temperature 99.0 F Pulse Rate 98 H 97 H 104 H Pulse Rate [ 102 H From Monitor] Respiratory 23 24 15 Rate Blood Pressure 113/58 101/54 119/56 O2 Sat by Pulse 97 97 96 Oximetry 06/27/21 06/27/21 06/27/21 16:31 16:45 16:57 Temperature Pulse Rate 120 H 100 H 108 H Pulse Rate [ From Monitor] Respiratory 11 L 25 H Rate Blood Pressure 93/70 116/57 116/57 O2 Sat by Pulse 70 L 93 94 Oximetry 06/27/21 06/27/21 06/27/21 17:01 17:15 17:30 Temperature Pulse Rate 111 H 102 H 97 H Pulse Rate [ From Monitor] Respiratory 24 24 24 Rate Blood Pressure 123/67 93/56 95/53 O2 Sat by Pulse 94 94 95 Oximetry 06/27/21 06/27/21 06/27/21 17:45 18:00 18:15 Temperature Pulse Rate 96 H 109 H 96 H Pulse Rate [ From Monitor] Respiratory 24 19 24 Rate Blood Pressure 104/57 89/62 102/55 O2 Sat by Pulse 97 96 96 Oximetry 06/27/21 06/27/21 06/27/21 18:30 18:45 19:00 Temperature Pulse Rate 96 H 92 H 95 H Pulse Rate [ From Monitor] Respiratory 24 24 24 Rate Blood Pressure 101/56 100/55 101/55 O2 Sat by Pulse 97 96 97 Oximetry 06/27/21 06/27/21 06/27/21 19:15 19:30 19:45 Temperature Pulse Rate 93 H 91 H 93 H Pulse Rate [ From Monitor] Respiratory 23 24 24 Rate Blood Pressure 104/56 106/58 109/55 O2 Sat by Pulse 96 95 95 Oximetry 06/27/21 06/27/21 06/27/21 19:49 19:50 20:00 Temperature 99.6 F Pulse Rate 108 H 91 H Pulse Rate [ 96 H From Monitor] Respiratory 24 Rate Blood Pressure 116/57 102/53 O2 Sat by Pulse 94 95 Oximetry 06/27/21 06/27/21 06/27/21 20:15 20:30 20:45 Temperature Pulse Rate 97 H 104 H 96 H Pulse Rate [ From Monitor] Respiratory 24 24 24 Rate Blood Pressure 112/58 120/63 104/56 O2 Sat by Pulse 95 95 96 Oximetry 06/27/21 06/27/21 06/27/21 21:00 21:15 21:30 Temperature Pulse Rate 101 H 96 H 96 H Pulse Rate [ From Monitor] Respiratory 24 17 24 Rate Blood Pressure 107/61 103/59 109/56 O2 Sat by Pulse 95 96 97 Oximetry Constitutional: other (critically ill on ventilator) Eyes: non-icteric Neck: supple Effort: normal Ascultation: Bilateral: other (coarse BS bilaterally) Cardiovascular: regular rate and rhythm (ir/ir, no mrg) Gastrointestinal: normoactive bowel sounds, soft, non-distended Integumentary: normal Extremities: no cyanosis, no edema, pink and warm Neurologic: normal mental status, non-focal exam, pupils equal and round, CN II- XII normal Psychiatric: mood appropriate, affect normal CBC and BMP: 06/28/21 03:00 06/28/21 03:00 ABG, PT/INR, D-dimer: ABG ABG pH 7.480 (7.320-7.450) H 06/27/21 05:06 POC ABG pCO2 38.0 mmHg (32.0-48.0) 06/27/21 05:06 ABG pCO2 35.8 mm Hg 06/26/21 10:00 POC ABG pO2 93.6 mmHg (83-108) 06/27/21 05:06 ABG pO2 125.4 mm Hg (80.0-90.0) H 06/26/21 10:00 POC ABG HCO3 27.7 06/27/21 05:06 ABG O2 Saturation 98.0 (0-100) 06/27/21 05:06 PT/INR, D-dimer PT 12.6 Sec. (12.2-14.9) 06/25/21 13:42 INR 0.85 (0.87-1.13) L 06/25/21 13:42 Abnormal lab findings: Abnormal Labs 06/22/21 06/22/21 06/22/21 07:58 07:58 07:58 WBC 13.0 H MCHC 35 H Lymph % (Auto) 6.3 L Pender % (Auto) 7.4 H Lymph # (Auto) 0.8 L Pender # (Auto) 1.0 H Seg Neutrophils % 85.5 H Seg Neuts % (Manual) Lymphocytes % (Manual) Seg Neutrophils # 11.1 H Seg Neutrophils # Man Lymphocytes # (Manual) PT 11.8 L INR 0.78 L Heparin Anti-Xa Level ABG pH POC ABG pCO2 ABG pO2 ABG HCO3 ABG O2 Saturation ABG Base Excess ABG Hemoglobin ABG Oxyhemoglobin ABG Sodium ABG Chloride ABG Glucose Sodium 107 L* Potassium 2.7 L* Chloride 60.0 L Carbon Dioxide 32 H BUN Creatinine 0.5 L Glucose 177 H POC Glucose Hemoglobin A1c Lactic Acid Uric Acid Calcium Phosphorus Magnesium Lactate Dehydrogenase C-Reactive Protein Total Protein Albumin Arterial Blood Glucose Urine WBC (Auto) 06/22/21 06/22/21 06/22/21 08:56 08:56 08:56 WBC MCHC Lymph % (Auto) Pender % (Auto) Lymph # (Auto) Pender # (Auto) Seg Neutrophils % Seg Neuts % (Manual) Lymphocytes % (Manual) Seg Neutrophils # Seg Neutrophils # Man Lymphocytes # (Manual) PT INR Heparin Anti-Xa Level ABG pH POC ABG pCO2 ABG pO2 ABG HCO3 ABG O2 Saturation ABG Base Excess ABG Hemoglobin ABG Oxyhemoglobin ABG Sodium ABG Chloride ABG Glucose Sodium 104 L* Potassium 3.2 L Chloride 60.0 L Carbon Dioxide BUN Creatinine 0.4 L Glucose 179 H 181 H POC Glucose Hemoglobin A1c Lactic Acid 2.10 H* Uric Acid Calcium Phosphorus Magnesium Lactate Dehydrogenase 220 H C-Reactive Protein 5.40 H Total Protein Albumin Arterial Blood Glucose Urine WBC (Auto) 06/22/21 06/22/21 06/22/21 11:47 14:20 18:19 WBC MCHC Lymph % (Auto) Pender % (Auto) Lymph # (Auto) Pender # (Auto) Seg Neutrophils % Seg Neuts % (Manual) Lymphocytes % (Manual) Seg Neutrophils # Seg Neutrophils # Man Lymphocytes # (Manual) PT INR Heparin Anti-Xa Level ABG pH POC ABG pCO2 ABG pO2 ABG HCO3 ABG O2 Saturation ABG Base Excess ABG Hemoglobin ABG Oxyhemoglobin ABG Sodium ABG Chloride ABG Glucose Sodium 112 L* D 112 L* Potassium 2.7 L* 2.7 L* Chloride 65.2 L 65.8 L Carbon Dioxide 32 H 31 H BUN Creatinine 0.4 L 0.3 L Glucose 119 H POC Glucose Hemoglobin A1c Lactic Acid Uric Acid Calcium Phosphorus Magnesium Lactate Dehydrogenase C-Reactive Protein Total Protein Albumin Arterial Blood Glucose Urine WBC (Auto) 11.0 H 06/23/21 06/23/21 06/23/21 05:29 05:29 05:29 WBC 12.4 H MCHC Lymph % (Auto) 5.8 L Pender % (Auto) Lymph # (Auto) 0.7 L Pender # (Auto) 0.9 H Seg Neutrophils % 87.1 H Seg Neuts % (Manual) Lymphocytes % (Manual) Seg Neutrophils # 10.8 H Seg Neutrophils # Man Lymphocytes # (Manual) PT INR Heparin Anti-Xa Level ABG pH POC ABG pCO2 ABG pO2 ABG HCO3 ABG O2 Saturation ABG Base Excess ABG Hemoglobin ABG Oxyhemoglobin ABG Sodium ABG Chloride ABG Glucose Sodium 112 L* Potassium 2.6 L* Chloride 67.5 L Carbon Dioxide 33 H BUN Creatinine 0.4 L Glucose POC Glucose Hemoglobin A1c 6.6 H Lactic Acid Uric Acid 3.2 L Calcium Phosphorus Magnesium Lactate Dehydrogenase C-Reactive Protein Total Protein Albumin Arterial Blood Glucose Urine WBC (Auto) 06/23/21 06/23/21 06/23/21 05:29 12:11 17:43 WBC MCHC Lymph % (Auto) Pender % (Auto) Lymph # (Auto) Pender # (Auto) Seg Neutrophils % Seg Neuts % (Manual) Lymphocytes % (Manual) Seg Neutrophils # Seg Neutrophils # Man Lymphocytes # (Manual) PT INR Heparin Anti-Xa Level ABG pH POC ABG pCO2 ABG pO2 ABG HCO3 ABG O2 Saturation ABG Base Excess ABG Hemoglobin ABG Oxyhemoglobin ABG Sodium ABG Chloride ABG Glucose Sodium 113 L* 117 L* Potassium 2.6 L* Chloride 69.7 L 74.9 L Carbon Dioxide BUN Creatinine 0.4 L 0.3 L Glucose 106 H 125 H POC Glucose Hemoglobin A1c Lactic Acid Uric Acid Calcium Phosphorus Magnesium 1.50 L Lactate Dehydrogenase C-Reactive Protein Total Protein Albumin Arterial Blood Glucose Urine WBC (Auto) 06/24/21 06/24/21 06/24/21 00:43 00:45 05:33 WBC MCHC Lymph % (Auto) Pender % (Auto) Lymph # (Auto) Pender # (Auto) Seg Neutrophils % Seg Neuts % (Manual) Lymphocytes % (Manual) Seg Neutrophils # Seg Neutrophils # Man Lymphocytes # (Manual) PT INR Heparin Anti-Xa Level ABG pH POC ABG pCO2 ABG pO2 ABG HCO3 ABG O2 Saturation ABG Base Excess ABG Hemoglobin ABG Oxyhemoglobin ABG Sodium ABG Chloride ABG Glucose Sodium 119 L* 122 L Potassium Chloride 79.6 L 80.2 L Carbon Dioxide 32 H 31 H BUN Creatinine 0.4 L 0.3 L Glucose 116 H 143 H POC Glucose 117 H Hemoglobin A1c Lactic Acid Uric Acid Calcium Phosphorus Magnesium Lactate Dehydrogenase C-Reactive Protein Total Protein Albumin Arterial Blood Glucose Urine WBC (Auto) 06/24/21 06/24/21 06/24/21 05:33 06:11 16:25 WBC 12.0 H MCHC Lymph % (Auto) Pender % (Auto) Lymph # (Auto) Pender # (Auto) Seg Neutrophils % Seg Neuts % (Manual) 95.0 H Lymphocytes % (Manual) 2.0 L Seg Neutrophils # Seg Neutrophils # Man 11.4 H Lymphocytes # (Manual) 0.2 L PT INR Heparin Anti-Xa Level ABG pH POC ABG pCO2 ABG pO2 ABG HCO3 ABG O2 Saturation ABG Base Excess ABG Hemoglobin ABG Oxyhemoglobin ABG Sodium ABG Chloride ABG Glucose Sodium 122 L Potassium Chloride 78.9 L Carbon Dioxide 32 H BUN Creatinine 0.5 L D Glucose 141 H POC Glucose 141 H Hemoglobin A1c Lactic Acid Uric Acid Calcium Phosphorus Magnesium Lactate Dehydrogenase C-Reactive Protein Total Protein Albumin Arterial Blood Glucose Urine WBC (Auto) 06/24/21 06/24/21 06/25/21 18:16 23:49 00:18 WBC MCHC Lymph % (Auto) Pender % (Auto) Lymph # (Auto) Pender # (Auto) Seg Neutrophils % Seg Neuts % (Manual) Lymphocytes % (Manual) Seg Neutrophils # Seg Neutrophils # Man Lymphocytes # (Manual) PT INR Heparin Anti-Xa Level ABG pH POC ABG pCO2 ABG pO2 ABG HCO3 ABG O2 Saturation ABG Base Excess ABG Hemoglobin ABG Oxyhemoglobin ABG Sodium ABG Chloride ABG Glucose Sodium 123 L 122 L Potassium Chloride Carbon Dioxide BUN Creatinine Glucose POC Glucose 162 H Hemoglobin A1c Lactic Acid Uric Acid Calcium Phosphorus Magnesium Lactate Dehydrogenase C-Reactive Protein Total Protein Albumin Arterial Blood Glucose Urine WBC (Auto) 06/25/21 06/25/21 06/25/21 03:06 06:15 10:19 WBC MCHC Lymph % (Auto) Pender % (Auto) Lymph # (Auto) Pender # (Auto) Seg Neutrophils % Seg Neuts % (Manual) Lymphocytes % (Manual) Seg Neutrophils # Seg Neutrophils # Man Lymphocytes # (Manual) PT INR Heparin Anti-Xa Level ABG pH POC ABG pCO2 ABG pO2 ABG HCO3 ABG O2 Saturation ABG Base Excess ABG Hemoglobin ABG Oxyhemoglobin ABG Sodium ABG Chloride ABG Glucose Sodium Potassium Chloride Carbon Dioxide BUN Creatinine Glucose POC Glucose 151 H 149 H 152 H Hemoglobin A1c Lactic Acid Uric Acid Calcium Phosphorus Magnesium Lactate Dehydrogenase C-Reactive Protein Total Protein Albumin Arterial Blood Glucose Urine WBC (Auto) 06/25/21 06/25/21 06/25/21 13:42 13:42 15:13 WBC MCHC Lymph % (Auto) Pender % (Auto) Lymph # (Auto) Pender # (Auto) Seg Neutrophils % Seg Neuts % (Manual) Lymphocytes % (Manual) Seg Neutrophils # Seg Neutrophils # Man Lymphocytes # (Manual) PT INR 0.85 L Heparin Anti-Xa Level < 0.10 L ABG pH POC ABG pCO2 ABG pO2 ABG HCO3 ABG O2 Saturation ABG Base Excess ABG Hemoglobin ABG Oxyhemoglobin ABG Sodium ABG Chloride ABG Glucose Sodium 123 L Potassium Chloride 78.5 L Carbon Dioxide 32 H BUN 19 H Creatinine Glucose 193 H POC Glucose Hemoglobin A1c Lactic Acid Uric Acid Calcium Phosphorus Magnesium Lactate Dehydrogenase C-Reactive Protein Total Protein Albumin Arterial Blood Glucose Urine WBC (Auto) 06/25/21 06/25/21 06/25/21 15:21 19:49 21:21 WBC MCHC Lymph % (Auto) Pender % (Auto) Lymph # (Auto) Pender # (Auto) Seg Neutrophils % Seg Neuts % (Manual) Lymphocytes % (Manual) Seg Neutrophils # Seg Neutrophils # Man Lymphocytes # (Manual) PT INR Heparin Anti-Xa Level ABG pH 7.086 L POC ABG pCO2 104.9 H ABG pO2 ABG HCO3 ABG O2 Saturation ABG Base Excess ABG Hemoglobin ABG Oxyhemoglobin 92.4 L ABG Sodium 123.4 L ABG Chloride 81.0 L ABG Glucose 225 H Sodium Potassium Chloride Carbon Dioxide BUN Creatinine Glucose POC Glucose 221 H 194 H Hemoglobin A1c Lactic Acid Uric Acid Calcium Phosphorus Magnesium Lactate Dehydrogenase C-Reactive Protein Total Protein Albumin Arterial Blood Glucose 225 H Urine WBC (Auto) 06/25/21 06/25/21 06/26/21 22:55 22:55 00:35 WBC 14.8 H MCHC Lymph % (Auto) Pender % (Auto) Lymph # (Auto) Pender # (Auto) Seg Neutrophils % Seg Neuts % (Manual) 91.0 H Lymphocytes % (Manual) 6.0 L Seg Neutrophils # Seg Neutrophils # Man 13.5 H Lymphocytes # (Manual) 0.9 L PT INR Heparin Anti-Xa Level ABG pH POC ABG pCO2 ABG pO2 439.6 H ABG HCO3 30.0 H ABG O2 Saturation 99.6 H ABG Base Excess 3.3 H ABG Hemoglobin ABG Oxyhemoglobin ABG Sodium ABG Chloride ABG Glucose Sodium 124 L Potassium Chloride 82.9 L Carbon Dioxide BUN 22 H Creatinine Glucose 226 H POC Glucose Hemoglobin A1c Lactic Acid Uric Acid Calcium 8.2 L Phosphorus 4.70 H Magnesium Lactate Dehydrogenase C-Reactive Protein Total Protein Albumin Arterial Blood Glucose Urine WBC (Auto) 06/26/21 06/26/21 06/26/21 02:58 04:32 05:53 WBC MCHC Lymph % (Auto) Pender % (Auto) Lymph # (Auto) Pender # (Auto) Seg Neutrophils % Seg Neuts % (Manual) Lymphocytes % (Manual) Seg Neutrophils # Seg Neutrophils # Man Lymphocytes # (Manual) PT INR Heparin Anti-Xa Level ABG pH POC ABG pCO2 ABG pO2 ABG HCO3 ABG O2 Saturation ABG Base Excess ABG Hemoglobin ABG Oxyhemoglobin ABG Sodium ABG Chloride ABG Glucose Sodium 123 L Potassium Chloride 79.2 L Carbon Dioxide BUN 26 H Creatinine Glucose 202 H POC Glucose 227 H 187 H Hemoglobin A1c Lactic Acid Uric Acid Calcium Phosphorus Magnesium Lactate Dehydrogenase C-Reactive Protein Total Protein 5.9 L Albumin 2.8 L Arterial Blood Glucose Urine WBC (Auto) 06/26/21 06/26/21 06/26/21 09:14 09:48 10:00 WBC MCHC Lymph % (Auto) Pender % (Auto) Lymph # (Auto) Pender # (Auto) Seg Neutrophils % Seg Neuts % (Manual) Lymphocytes % (Manual) Seg Neutrophils # Seg Neutrophils # Man Lymphocytes # (Manual) PT INR Heparin Anti-Xa Level ABG pH 7.467 H POC ABG pCO2 ABG pO2 125.4 H ABG HCO3 ABG O2 Saturation ABG Base Excess ABG Hemoglobin ABG Oxyhemoglobin ABG Sodium ABG Chloride ABG Glucose Sodium Potassium Chloride Carbon Dioxide BUN Creatinine Glucose POC Glucose 194 H Hemoglobin A1c Lactic Acid Uric Acid Calcium Phosphorus Magnesium Lactate Dehydrogenase C-Reactive Protein Total Protein Albumin Arterial Blood Glucose Urine WBC (Auto) 69.0 H 06/26/21 06/26/21 06/26/21 16:06 22:34 23:32 WBC MCHC Lymph % (Auto) Pender % (Auto) Lymph # (Auto) Pender # (Auto) Seg Neutrophils % Seg Neuts % (Manual) Lymphocytes % (Manual) Seg Neutrophils # Seg Neutrophils # Man Lymphocytes # (Manual) PT INR Heparin Anti-Xa Level ABG pH POC ABG pCO2 ABG pO2 ABG HCO3 ABG O2 Saturation ABG Base Excess ABG Hemoglobin ABG Oxyhemoglobin ABG Sodium ABG Chloride ABG Glucose Sodium 128 L 126 L Potassium Chloride 88.6 L 89.2 L Carbon Dioxide BUN 32 H 34 H Creatinine Glucose 161 H 257 H POC Glucose 231 H Hemoglobin A1c Lactic Acid Uric Acid Calcium Phosphorus Magnesium Lactate Dehydrogenase C-Reactive Protein Total Protein Albumin Arterial Blood Glucose Urine WBC (Auto) 06/27/21 06/27/21 06/27/21 05:06 06:00 06:00 WBC 12.0 H MCHC Lymph % (Auto) Pender % (Auto) Lymph # (Auto) Pender # (Auto) Seg Neutrophils % Seg Neuts % (Manual) Lymphocytes % (Manual) Seg Neutrophils # Seg Neutrophils # Man Lymphocytes # (Manual) PT INR Heparin Anti-Xa Level ABG pH 7.480 H POC ABG pCO2 ABG pO2 ABG HCO3 ABG O2 Saturation ABG Base Excess ABG Hemoglobin 11.9 L ABG Oxyhemoglobin ABG Sodium 123.5 L ABG Chloride 91.0 L ABG Glucose 328 H Sodium 128 L Potassium Chloride 91.4 L Carbon Dioxide BUN 36 H Creatinine Glucose 346 H POC Glucose Hemoglobin A1c Lactic Acid Uric Acid Calcium Phosphorus Magnesium Lactate Dehydrogenase C-Reactive Protein Total Protein Albumin Arterial Blood Glucose 328 H Urine WBC (Auto) 06/27/21 06/27/21 11:41 17:06 WBC MCHC Lymph % (Auto) Pender % (Auto) Lymph # (Auto) Pender # (Auto) Seg Neutrophils % Seg Neuts % (Manual) Lymphocytes % (Manual) Seg Neutrophils # Seg Neutrophils # Man Lymphocytes # (Manual) PT INR Heparin Anti-Xa Level ABG pH POC ABG pCO2 ABG pO2 ABG HCO3 ABG O2 Saturation ABG Base Excess ABG Hemoglobin ABG Oxyhemoglobin ABG Sodium ABG Chloride ABG Glucose Sodium Potassium Chloride Carbon Dioxide BUN Creatinine Glucose POC Glucose 259 H 301 H Hemoglobin A1c Lactic Acid Uric Acid Calcium Phosphorus Magnesium Lactate Dehydrogenase C-Reactive Protein Total Protein Albumin Arterial Blood Glucose Urine WBC (Auto) Chest x-ray: report reviewed, image reviewed Allied health notes reviewed: nursing
[2021-06-28] MEDS: INSULIN LISPRO 100 UNIT/ML SUB-Q SCH ×4 (00:02→17:15)
[2021-06-28] MEDS: fentaNYL DRIP Premix 2,000 MCG/100 ML BAG IV SCH (02:19)
[2021-06-28 03:25] LABS: Basophils % (Auto) 0.1 % (0.0-1.8); Hematocrit 31.9 % (30.3-42.9); Hemoglobin 10.3 gm/dl (10.1-14.3); Lymphocytes # (Auto) 0.4 K/mm3 (1.2-5.4); Lymphocytes % (Auto) 2.8 % (13.4-35.0); Mean Corpuscular HGB Conc 32 % (30-34); Mean Corpuscular Volume 92 fl (79-97); Monocytes # (Auto) 1.1 K/mm3 (0.0-0.8); Monocytes % (Auto) 7.5 % (0.0-7.3); Platelet Count 391 K/mm3 (140-440); Red Blood Count 3.46 M/mm3 (3.65-5.03); Red Cell Distribution Width 13.6 % (13.2-15.2)
[2021-06-28 03:45] LABS: Blood Urea Nitrogen 35 mg/dL (7-17); Calcium 8.5 mg/dL (8.4-10.2); Hemolysis Index 22
[2021-06-28] MEDS: SODIUM CHLORIDE 0.9% 1000 ML 1,000 ML IV SCH ×2 (04:13→19:26)
[2021-06-28 04:24] LABS: BUN/Creatinine Ratio 58
--- NOTE | 2021-06-28 04:46 | XRay Report ---
CHEST 1 VIEW INDICATION / CLINICAL INFORMATION: follow up respiratory failure. COMPARISON: 06/27/2021 FINDINGS: SUPPORT DEVICES: Stable, satisfactory device positioning. HEART / MEDIASTINUM: No significant abnormality. LUNGS / PLEURA: Possible developing parenchymal disease in the left lower lobe. Patient is rotated ma kwame interpretation difficult. The remainder of the lungs are clear. No pneumothorax. ADDITIONAL FINDINGS: No significant additional findings. IMPRESSION: 1. Questionable developing left lower lobe parenchymal disease . Signer Name: Ashley Pennington MD Signed: 06/28/2021 4:42 AM Workstation Name: [id number]
[2021-06-28] MEDS: VANCOMYCIN 1,250 MG in SODIUM CHLORIDE 0.9% 250ML 250 ML IV SCH (05:16)
[2021-06-28] MEDS: VASOPRESSIN 20 UNIT in SODIUM CHLORIDE 0.9% 100 ML IV SCH (05:16)
[2021-06-28] MEDS: HYDROCORTISONE SOD SUCC 100 MG/2 ML VIAL IV SCH ×3 (05:17→22:00)
[2021-06-28] MEDS: FAMOTIDINE 20 MG TAB PO SCH (09:09)
[2021-06-28] MEDS: DOCUSATE SODIUM 100 MG/10 ML ORAL LIQD PO SCH ×2 (09:09→21:17)
[2021-06-28] MEDS: CLOPIDOGREL 75 MG TAB PO SCH (09:09)
[2021-06-28] MEDS: CEFEPIME/NS 2 GM/100 ML 2 GM/100 ML BAG IV SCH ×3 (09:18→21:17)
[2021-06-28] MEDS ORDERED: SODIUM PHOSPHATE 15 MMOL in SODIUM CHLORIDE 0.9% 250ML 250 ML IV ONE (09:29)
[2021-06-28] MEDS: HEPARIN/ 0.45% NACL DRIP 25,000 UNIT/500 ML BAG IV SCH (11:14)
--- NOTE | 2021-06-28 11:46 | Progress Note ---
Assessment and Plan - Patient Problems (1) Acute hyponatremia Current Visit: Yes Status: Acute Plan to address problem: Serum sodium levels are showing now an appropriate response with IVF hydration. Will continue current regimen. (2) Acute metabolic encephalopathy Current Visit: Yes Status: Acute Plan to address problem: Intubated at this time secondary to worsening lethargy and respiratory distress. Being that she was still lethargic despite improved serum sodium levels, I do not believe that her hyponatremia is contributing to her altered mental status at the present time. Concerned of underlying sepsis, and agree with broad spectrum antibiotics and may want to consider blood/urine cultures. (3) Atrial fibrillation with RVR Current Visit: Yes Status: Acute Plan to address problem: cardiology recommendations appreciated. (4) Community acquired pneumonia Current Visit: Yes Status: Acute Plan to address problem: antibiotic therapy per primary team. (5) Essential (primary) hypertension Current Visit: Yes Status: Acute Plan to address problem: monitor blood pressure on the current regimen. Currently hypotensive and on pressor support. (6) Type 2 diabetes mellitus without complications Current Visit: Yes Status: Chronic Plan to address problem: diabetes management per primary attending. Subjective Date of service: 06/28/21 Principal diagnosis: Acute respiratory failure Interval history: Hyponatremia is showing improvement with fluid hydration. Objective - Vital Signs Vital signs: Vital Signs - 12hr 06/27/21 06/28/21 06/28/21 23:55 00:00 00:15 Temperature 99.3 F Pulse Rate 98 H 95 H 91 H Pulse Rate [ 96 H From Monitor] Respiratory 24 24 24 Rate Blood Pressure 160/75 95/59 104/58 O2 Sat by Pulse 96 95 95 Oximetry 06/28/21 06/28/21 06/28/21 00:30 00:45 01:00 Temperature Pulse Rate 88 87 79 Pulse Rate [ From Monitor] Respiratory 24 24 24 Rate Blood Pressure 104/56 110/58 97/52 O2 Sat by Pulse 95 96 97 Oximetry 06/28/21 06/28/21 06/28/21 01:15 01:30 01:45 Temperature Pulse Rate 88 85 102 H Pulse Rate [ From Monitor] Respiratory 24 24 13 Rate Blood Pressure 110/62 111/59 129/63 O2 Sat by Pulse 96 96 98 Oximetry 06/28/21 06/28/21 06/28/21 02:01 02:15 02:30 Temperature Pulse Rate 87 121 H 104 H Pulse Rate [ From Monitor] Respiratory 21 18 14 Rate Blood Pressure 159/73 139/67 136/80 O2 Sat by Pulse 97 94 96 Oximetry 06/28/21 06/28/21 06/28/21 02:45 03:00 03:15 Temperature Pulse Rate 86 87 86 Pulse Rate [ From Monitor] Respiratory 18 15 18 Rate Blood Pressure 72/46 83/51 91/50 O2 Sat by Pulse 97 97 98 Oximetry 06/28/21 06/28/21 06/28/21 03:30 03:45 04:00 Temperature 99.2 F Pulse Rate 86 86 80 Pulse Rate [ 88 From Monitor] Respiratory 24 24 24 Rate Blood Pressure 84/49 86/49 88/45 O2 Sat by Pulse 98 98 99 Oximetry 06/28/21 06/28/21 06/28/21 04:15 04:30 04:45 Temperature Pulse Rate 79 79 76 Pulse Rate [ From Monitor] Respiratory 24 18 24 Rate Blood Pressure 81/50 85/46 79/44 O2 Sat by Pulse 98 98 98 Oximetry 06/28/21 06/28/21 06/28/21 05:00 05:15 05:30 Temperature Pulse Rate 74 88 78 Pulse Rate [ From Monitor] Respiratory 24 24 11 L Rate Blood Pressure 74/41 106/52 137/62 O2 Sat by Pulse 99 99 98 Oximetry 06/28/21 06/28/21 06/28/21 05:45 06:00 06:15 Temperature Pulse Rate 70 68 62 Pulse Rate [ From Monitor] Respiratory 20 22 18 Rate Blood Pressure 127/55 131/63 122/59 O2 Sat by Pulse 98 99 99 Oximetry 06/28/21 06/28/21 06/28/21 06:30 06:45 07:00 Temperature Pulse Rate 63 63 65 Pulse Rate [ From Monitor] Respiratory 25 H 13 21 Rate Blood Pressure 128/57 130/59 133/58 O2 Sat by Pulse 99 100 100 Oximetry 06/28/21 06/28/21 06/28/21 07:15 07:31 07:45 Temperature Pulse Rate 67 89 76 Pulse Rate [ From Monitor] Respiratory 22 21 22 Rate Blood Pressure 88/45 116/60 96/45 O2 Sat by Pulse 99 99 98 Oximetry 06/28/21 06/28/21 06/28/21 08:00 08:15 08:30 Temperature Pulse Rate 98 H 83 79 Pulse Rate [ 76 From Monitor] Respiratory 19 22 22 Rate Blood Pressure 119/58 96/45 102/52 O2 Sat by Pulse 98 96 96 Oximetry 06/28/21 06/28/21 06/28/21 08:45 09:01 09:15 Temperature Pulse Rate 79 85 117 H Pulse Rate [ From Monitor] Respiratory 16 21 19 Rate Blood Pressure 104/52 124/52 129/102 O2 Sat by Pulse 96 97 96 Oximetry 06/28/21 06/28/21 06/28/21 09:30 09:40 09:45 Temperature Pulse Rate 95 H 103 H 76 Pulse Rate [ From Monitor] Respiratory 28 H 24 Rate Blood Pressure 122/52 128/66 110/50 O2 Sat by Pulse 97 98 96 Oximetry 06/28/21 06/28/21 06/28/21 10:00 10:16 11:09 Temperature Pulse Rate 82 103 H 131 H Pulse Rate [ From Monitor] Respiratory 24 19 24 Rate Blood Pressure 109/51 128/66 141/63 O2 Sat by Pulse 97 97 97 Oximetry - General Appearance General appearance: intubated EENT: ATNC Neck: no JVD Respiratory: Present: Decreased Breath Sounds Cardiology: regular Gastrointestinal: normal Integumentary: no rash Musculoskeletal: deferred - Lab 06/28/21 03:00 06/28/21 03:00 Most recent lab results ABG pH 7.480 (7.320-7.450) H 06/27/21 05:06 ABG pCO2 35.8 mm Hg 06/26/21 10:00 ABG pO2 125.4 mm Hg (80.0-90.0) H 06/26/21 10:00 ABG HCO3 25.3 mmol/L (20.0-26.0) 06/26/21 10:00 ABG O2 Saturation 98.0 (0-100) 06/27/21 05:06 Calcium 8.5 mg/dL (8.4-10.2) 06/28/21 03:00 Phosphorus 1.10 mg/dL (2.5-4.5) L 06/28/21 03:00 Magnesium 2.10 mg/dL (1.7-2.3) 06/28/21 03:00 Urine Sodium 25 mmol/L 06/22/21 11:47 - Imaging Chest x-ray: report reviewed - Allied health notes Allied health notes reviewed: nursing Medications & Allergies - Medications Allergies/Adverse Reactions: Allergies No Known Allergies Allergy (Verified 06/26/21 16:15) Home Medications: Home Medications Medication Instructions Recorded Confirmed Last Taken Type Atenolol/Chlorthalidone [Tenoretic 1 tab PO DAILY 06/22/21 06/22/21 Unknown History 50-25] Clopidogrel [Plavix] 75 mg PO DAILY 06/22/21 06/22/21 Unknown History Glimepiride [Amaryl] 2 mg PO QAM 06/22/21 06/22/21 Unknown History Pioglitazone [Actos] 15 mg PO DAILY 06/22/21 06/22/21 Unknown History Pravastatin [Pravachol] 40 mg PO QHS 06/22/21 06/22/21 Unknown History lisinopriL [Zestril TAB] 5 mg PO DAILY 06/22/21 06/22/21 Unknown History Active Medications: Generic Name Dose Route Start Last Admin Trade Name Freq PRN Reason Stop Dose Admin Acetaminophen 650 mg 06/22/21 22:21 06/23/21 12:13 Acetaminophen 325 Mg Tab PO 650 mg Q4H PRN Administration Pain MILD(1-3)/Fever >100.5/NAVA Lipase/Protease/Amylase 1 each 06/26/21 11:31 Lipase 10,500/Protease 25,000/Amylase 43,750 (Units) Dr Castellanos FEEDTUBE PRN PRN For Clogged Feeding Tube Clopidogrel Bisulfate 75 mg 06/23/21 10:00 06/28/21 09:09 Clopidogrel 75 Mg Tab PO 75 mg DAILY JUDY Administration Docusate Sodium 100 mg 06/25/21 22:00 06/28/21 09:09 Docusate Sodium 100 Mg/10 Ml Oral Liqd PO 100 mg BID JUDY Administration Famotidine 20 mg 06/28/21 10:00 06/28/21 09:09 Famotidine 20 Mg Tab PO 20 mg QDAY JUDY Administration Fentanyl 50 mcg 06/26/21 04:27 06/28/21 02:27 Fentanyl 100 Mcg/2 Ml Inj IV 50 mcg Q10MIN PRN Administration ANALGESIA Hydrocortisone Sodium Succinate 60 mg 06/26/21 22:00 06/28/21 05:17 Hydrocortisone Sod Succ 100 Mg/2 Ml Vial IV 60 mg Q8HR JUDY Administration Heparin Sodium/Sodium Chloride 25,000 unit in 500 mls @ 26 mls/hr 12/30/21 13:00 06/28/21 11:14 Heparin/ 0.45% Nacl-25,000 Unit/500 Ml IV 1,100 units/hr TITR JUDY 22 mls/hr Administration Protocol 1,300 UNITS/HR NORepinephrine/NS 8 MG-250 ML 8 mg in 250 mls @ 3.75 mls/hr 06/25/21 23:00 06/27/21 17:07 Norepinephrine/Ns 8 Mg-250 Ml (Double Conc) IV 0 mcg/min TITRATE JUDY 0 mls/hr Titration Protocol 2 MCG/MIN Fentanyl Citrate 2,000 mcg in 100 mls @ 4.309 mls/hr 06/26/21 05:00 06/28/21 07:30 Fentanyl Drip Premix IV 1 mcg/kg/hr TITR JUDY 4.309 mls/hr Titration Protocol 1 MCG/KG/HR Vasopressin 20 unit/ Sodium 101 mls @ 9.09 mls/hr 06/26/21 10:00 06/28/21 07:30 Chloride IV 0 units/min TITR JUDY 0 mls/hr Titration Protocol 0.03 UNITS/MIN Cefepime HCl 2 gm in 100 mls @ 200 mls/hr 06/26/21 10:00 06/28/21 09:18 Cefepime/Ns 2 Gm/100 Ml IV 200 mls/hr Q12H JUDY Administration Protocol Sodium Chloride 1,000 mls @ 100 mls/hr 06/26/21 11:00 06/28/21 04:13 Nacl 0.9% 1000 Ml IV 100 mls/hr DIRECT JUDY Administration Insulin Glargine 20 units 06/28/21 22:00 Insulin Glargine 100 Units/Ml SUB-Q QHS [facility] Insulin Human Lispro 0 unit 06/26/21 12:00 06/28/21 05:17 Insulin Lispro 100 Unit/Ml SUB-Q 4 unit Q6HR [facility] Administration Protocol Metoclopramide HCl 10 mg 06/22/21 22:21 Metoclopramide 10 Mg/2 Ml Inj IV Q6H PRN Nausea And Vomiting Ondansetron HCl 4 mg 06/22/21 22:21 Ondansetron 4 Mg/2 Ml Inj IV Q8H PRN Nausea And Vomiting Pravastatin Sodium 40 mg 06/23/21 22:00 06/27/21 21:40 Pravastatin 40 Mg Tab PO 40 mg QHS JUDY Administration Simple Syrup 15 ml 06/26/21 11:31 Simple Syrup 15 Ml FEEDTUBE PRN PRN Hypoglycemia Simple Syrup 30 ml 06/26/21 11:31 Simple Syrup 15 Ml FEEDTUBE PRN PRN Hypoglycemia Sodium Bicarbonate 325 mg 06/26/21 11:31 Sodium Bicarbonate 325 Mg Tab FEEDTUBE PRN PRN For Clogged Feeding Tube Sodium Chloride 10 ml 06/23/21 10:00 06/28/21 09:10 Sodium Chloride 0.9% 10 Ml Flush Syringe IV 10 ml BID JUDY Administration Sodium Chloride 10 ml 06/22/21 22:21 Sodium Chloride 0.9% 10 Ml Flush Syringe IV PRN PRN LINE FLUSH
--- NOTE | 2021-06-28 16:08 | Progress Note ---
Assessment and Plan Assessment and plan: This is a 55-year-old female with HTN, tobacco abuse and diabetes mellitus admitted for severe hyponatremia, hypochloremia and hypokalemia, acute proximal respiratory failure, mini seizure-like activity and urinary tract infection. Neuro: Acute metabolic encephalopathy -Reported seizure-like activity and admitted by family however this could be related to her severe hyponatremia -No witnessed seizure activity after admit -Avoid delirium -S/p 3% saline -Reorientation as needed -Maintain sleep-wake cycle -As needed analgesia -Sedated with fentanyl -RASS goal 0 to -1 -Daily SBT and SAT when appropriate -Bilateral restraints in place for safety Cardio: Atrial fibrillation, h/o HTN -Cardiology consulted, appreciate recommendations -Amiodarone drip -stopped d/t hypotension and SB 06/27 but reordered today d/t pt being in afib with rvr with PSV -converted to SR after switched to AC -Echocardiogram shows Normal bivalve function, LVEF 60 to 65% -Blood pressure monitoring protocol -s/p vasopressor support with Levophed and vasopressin -Map goal greater than 65 -Restarted home Plavix -Heparin drip for anticoagulation and statin -hold home antihtn regimen d/t hypotension -Wean stress steroids Respiratory: Acute hypercarbic respiratory failure -s/p NRB -Intubated on 06/25 with 7.50 ETT at 22 at the lips -A.m. vent settings: Tidal volume 450, rate 24, PEEP 8, FiO2 40% -See RT notes for titration -A.m. ABG and CXR noted -VAP bundle -SPO2 monitoring GI: NAD -24 hours +2810 mL -Nutrition consult for tube feeding -BR: colace -PPI : Severe hyponatremia (improving), acute kidney injury, hypochloremia -Nephrology consulted, appreciate recommendations -S/p 3% saline -S/p Samsca -MIVF and albumin per nephrology -Strict intake and output -Trend BMP Heme: Leukocytosis -Trend CBC -Transfuse hemoglobin less than 7 -Heparin drip -SCDs to bilateral lower extremity while in bed ID: Urinary tract infection, Community-acquired pneumonia -Antibiotic therapy: Cefepime and vancomycin -vanco stopped today -Blood culture x2 NGTD -Sputum culture -Monitor WBC and temp curve -UA with pyuria -CXR on admit with PNA Endo: h/o DM type II -SSI -Accu-Cheks AC at bedtime -Avoid hypoglycemia -Hemoglobin A1c 6.6 -Long acting insulin, titrate as needed The high probability of a clinically significant, sudden or life threatening deterioration of the [renal] system(s) required my full and direct attention, intervention and personal management. The aggregate critical care time was [60] minutes. This time is in addition to time spent performing reported procedures but includes the following: [x] Data Review and interpretation [x] Patient assessment and monitoring of vital signs [x] Documentation [x] Medication orders and management Disposition Plan: icu Total Time Spent with Patient (Minutes): 60 History Interval history: This is a 55-year-old female with hypertension, atrial fibrillation, tobacco abuse and diabetes mellitus who presents the emergency department on 06/22 for severe weakness, altered mental status and witnessed seizure-like activity. CXR showed left basilar airspace opacity and work-up in the emergency department revealed severe hyponatremia, hypokalemia, severe hypochloremia, metabolic alkalosis acute hypoxic respiratory failure, witnessed seizure activity and uri nary tract infection. Patient was admitted to the hospital service with consults to nephrology and CCM. 06/23/2021 Patient symptomatically better Sodium is 117 06/24: Sodium slightly better however we will still admit to ICU, no acute vents overnight 06/25: Patient noted to be in atrial fibrillation upon transfer to ICU and stat ECG revealed atrial fibrillation. Cardiology was consulted. Patient restarted on home beta-jeimy and was eventually changed to amiodarone. She was started on heparin drip. Patient will be transferred to the telemetry floor. 06/26: Yesterday evening transfer was held and ABG read which showed hypercapnia and patient was intubated. Patient became bradycardic and hypotensive and was started on Levophed. This morning patient Levophed was in the high 20s th erefore vasopressin was added. After addition of vasopressin and was able to wean Levophed. Stress dose steroids started due to labile pressures. Broad- spectrum antibiotics started. Patient started on albumin and normal saline per nephrology. Cotisol ordered 06/27/2021: nephro started MIVF and does not see any indication fro hypertonic at this time. SR noted this morning. Remains on vasopression. Likely PSV in the AM. increase in insulin 1/2: PSV for couple hours then noted to be in afib with rvr. amio gtt restarted but patient converted back to SR after switched back to AC mode. stopped vanco today. off vasopressors. Hospitalist Physical - Constitutional Vitals: Temp Pulse Resp BP Pulse Ox 98.4 F 85 20 137/60 100 06/28/21 11:46 06/28/21 15:31 06/28/21 15:31 06/28/21 15:31 06/28/21 15:31 General appearance: Present: no acute distress - EENT Eyes: Present: PERRL, EOM intact ENT: hearing intact, clear oral mucosa, dentition normal - Neck Neck: Present: normal ROM - Respiratory Respiratory effort: normal Respiratory: bilateral: diminished - Cardiovascular Rhythm: regular Heart Sounds: Present: S1 & S2. Absent: systolic murmur, diastolic murmur - Extremities Extremities: no ischemia, pulses intact, pulses symmetrical, No edema, normal temperature, normal color, Full ROM Peripheral Pulses: within normal limits - Abdominal General gastrointestinal: soft, non-tender, non-distended, normal bowel sounds - Integumentary Integumentary: Present: warm, dry - Psychiatric Psychiatric: cooperative - Neurologic Neurologic: CNII-XII intact, no focal deficits, moves all extremities - Allied Health Allied health notes reviewed: nursing, RT HEART Score - HEART Score Troponin: Troponin T < 0.010 ng/mL (0.00-0.029) 06/22/21 07:58 Results - Labs CBC & Chem 7: 06/28/21 03:00 06/28/21 03:00 Labs: Laboratory Last Values WBC 14.9 K/mm3 (4.5-11.0) H 06/28/21 03:00 RBC 3.46 M/mm3 (3.65-5.03) L 06/28/21 03:00 Hgb 10.3 gm/dl (10.1-14.3) 06/28/21 03:00 Hct 31.9 % (30.3-42.9) 06/28/21 03:00 MCV 92 fl (79-97) 06/28/21 03:00 MCH 30 pg (28-32) 06/28/21 03:00 MCHC 32 % (30-34) 06/28/21 03:00 RDW 13.6 % (13.2-15.2) 06/28/21 03:00 Plt Count 391 K/mm3 (140-440) 06/28/21 03:00 Lymph % (Auto) 2.8 % (13.4-35.0) L 06/28/21 03:00 [place] % (Auto) 7.5 % (0.0-7.3) H 06/28/21 03:00 Eos % (Auto) 0.0 % (0.0-4.3) 06/28/21 03:00 Baso % (Auto) 0.1 % (0.0-1.8) 06/28/21 03:00 Lymph # (Auto) 0.4 K/mm3 (1.2-5.4) L 06/28/21 03:00 [place] # (Auto) 1.1 K/mm3 (0.0-0.8) H 06/28/21 03:00 Eos # (Auto) 0.0 K/mm3 (0.0-0.4) 06/28/21 03:00 Baso # (Auto) 0.0 K/mm3 (0.0-0.1) 06/28/21 03:00 Add Manual Diff Complete 06/25/21 22:55 Total Counted 100 06/25/21 22:55 Seg Neutrophils % 89.6 % (40.0-70.0) H 06/28/21 03:00 Seg Neuts % (Manual) 91.0 % (40.0-70.0) H 06/25/21 22:55 Lymphocytes % (Manual) 6.0 % (13.4-35.0) L 06/25/21 22:55 Monocytes % (Manual) 3.0 % (0.0-7.3) 06/25/21 22:55 Metamyelocytes % 1.0 % 06/24/21 05:33 Nucleated RBC % Not Reportable 06/25/21 22:55 Seg Neutrophils # 13.4 K/mm3 (1.8-7.7) H 06/28/21 03:00 Seg Neutrophils # Man 13.5 K/mm3 (1.8-7.7) H 06/25/21 22:55 Band Neutrophils # 0.0 K/mm3 06/25/21 22:55 Lymphocytes # (Manual) 0.9 K/mm3 (1.2-5.4) L 06/25/21 22:55 Abs React Lymphs (Man) 0.0 K/mm3 06/25/21 22:55 Monocytes # (Manual) 0.4 K/mm3 (0.0-0.8) 06/25/21 22:55 Eosinophils # (Manual) 0.0 K/mm3 (0.0-0.4) 06/25/21 22:55 Basophils # (Manual) 0.0 K/mm3 (0.0-0.1) 06/25/21 22:55 Metamyelocytes # 0.0 K/mm3 06/25/21 22:55 Myelocytes # 0.0 K/mm3 06/25/21 22:55 Promyelocytes # 0.0 K/mm3 06/25/21 22:55 Blast Cells # 0.0 K/mm3 06/25/21 22:55 WBC Morphology Not Reportable 06/25/21 22:55 Hypersegmented Neuts Not Reportable 06/25/21 22:55 Hyposegmented Neuts Not Reportable 06/25/21 22:55 Hypogranular Neuts Not Reportable 06/25/21 22:55 Smudge Cells Not Reportable 06/25/21 22:55 Toxic Granulation Not Reportable 06/25/21 22:55 Toxic Vacuolation Not Reportable 06/25/21 22:55 Dohle Bodies Not Reportable 06/25/21 22:55 Pelger-Huet Anomaly Not Reportable 06/25/21 22:55 Otf Rods Not Reportable 06/25/21 22:55 Platelet Estimate Consistent w auto 06/25/21 22:55 Clumped Platelets Not Reportable 06/25/21 22:55 Plt Clumps, EDTA Not Reportable 06/25/21 22:55 Large Platelets Not Reportable 06/25/21 22:55 Giant Platelets Not Reportable 06/25/21 22:55 Platelet Satelliting Not Reportable 06/25/21 22:55 Plt Morphology Comment Not Reportable 06/25/21 22:55 RBC Morphology Normal 06/25/21 22:55 Dimorphic RBCs Not Reportable 06/25/21 22:55 Polychromasia Not Reportable 06/25/21 22:55 Hypochromasia Not Reportable 06/25/21 22:55 Poikilocytosis Not Reportable 06/25/21 22:55 Anisocytosis Not Reportable 06/25/21 22:55 Microcytosis Not Reportable 06/25/21 22:55 Macrocytosis Not Reportable 06/25/21 22:55 Spherocytes Not Reportable 06/25/21 22:55 Pappenheimer Bodies Not Reportable 06/25/21 22:55 Sickle Cells Not Reportable 06/25/21 22:55 Target Cells Not Reportable 06/25/21 22:55 Tear Drop Cells Not Reportable 06/25/21 22:55 Ovalocytes Not Reportable 06/25/21 22:55 Helmet Cells Not Reportable 06/25/21 22:55 [place] Bodies Not Reportable 06/25/21 22:55 [place] Rings Not Reportable 06/25/21 22:55 [place] Cells Not Reportable 06/25/21 22:55 Bite Cells Not Reportable 06/25/21 22:55 Crenated Cell Not Reportable 06/25/21 22:55 Elliptocytes Not Reportable 06/25/21 22:55 Acanthocytes (Spur) Not Reportable 06/25/21 22:55 Rouleaux Not Reportable 06/25/21 22:55 Hemoglobin C Crystals Not Reportable 06/25/21 22:55 Schistocytes Not Reportable 06/25/21 22:55 Malaria parasites Not Reportable 06/25/21 22:55 Steve Bodies Not Reportable 06/25/21 22:55 Hem Pathologist Commnt No 06/25/21 22:55 PT 12.6 Sec. (12.2-14.9) 06/25/21 13:42 INR 0.85 (0.87-1.13) L 06/25/21 13:42 APTT 31.0 Sec. (24.2-36.6) 06/25/21 13:42 Thrombin Time 15.9 Sec. (15.1-19.6) 06/22/21 07:58 Heparin Anti-Xa Level 0.27 U.I./ml (0.3-0.7) L 06/28/21 03:00 ABG pH 7.480 (7.320-7.450) H 06/27/21 05:06 POC ABG pCO2 38.0 mmHg (32.0-48.0) 06/27/21 05:06 ABG pCO2 35.8 mm Hg 06/26/21 10:00 POC ABG pO2 93.6 mmHg (83-108) 06/27/21 05:06 ABG pO2 125.4 mm Hg (80.0-90.0) H 06/26/21 10:00 POC ABG HCO3 27.7 06/27/21 05:06 ABG HCO3 25.3 mmol/L (20.0-26.0) 06/26/21 10:00 ABG O2 Saturation 98.0 (0-100) 06/27/21 05:06 ABG O2 Content 17.1 (0.0-44) 06/26/21 10:00 POC ABG Base Excess 4.0 06/27/21 05:06 ABG Base Excess 1.9 mmol/L (-2.0-3.0) 06/26/21 10:00 ABG Hemoglobin 11.9 (12.0-17.5) L 06/27/21 05:06 ABG Oxyhemoglobin 96.8 (94-98) 06/27/21 05:06 ABG Carboxyhemoglobin 1.1 % (0.0-5.0) 06/26/21 10:00 ABG Methemoglobin 0.3 (0.0-1.5) 06/27/21 05:06 ABG Sodium 123.5 mmol/L (136.0-145.0) L 06/27/21 05:06 ABG Potassium 3.7 mmol/L (3.40-4.50) 06/27/21 05:06 ABG Chloride 91.0 mmol/L (98-107) L 06/27/21 05:06 ABG Glucose 328 mg/dL (65-95) H 06/27/21 05:06 Oxyhemoglobin 97.0 % (95.0-99.0) 06/26/21 10:00 Carboxyhemoglobin 0.9 (0.5-1.5) 06/27/21 05:06 FiO2 50 % 06/26/21 10:00 FiO2 % 40.0 06/27/21 05:06 Sodium 134 mmol/L (137-145) L 06/28/21 03:00 Potassium 3.8 mmol/L (3.6-5.0) 06/28/21 03:00 Chloride 91.1 mmol/L (98-107) L 06/28/21 03:00 Carbon Dioxide 23 mmol/L (22-30) 06/28/21 03:00 Anion Gap 24 mmol/L 06/28/21 03:00 BUN 35 mg/dL (7-17) H 06/28/21 03:00 Creatinine 0.6 mg/dL (0.6-1.2) 06/28/21 03:00 Estimated GFR > 60 ml/min 06/28/21 03:00 BUN/Creatinine Ratio 58 % 06/28/21 03:00 Glucose 235 mg/dL (65-100) H 06/28/21 03:00 POC Glucose 241 mg/dL (70-105) H 06/28/21 05:13 Hemoglobin A1c 6.6 % (4-6) H 06/23/21 05:29 Osmolality 240 Mosm/kg 06/22/21 23:24 Lactic Acid 1.60 mmol/L (0.7-2.0) 06/25/21 22:55 Uric Acid 3.2 mg/dL (3.5-7.6) L 06/23/21 05:29 Calcium 8.5 mg/dL (8.4-10.2) 06/28/21 03:00 Phosphorus 1.10 mg/dL (2.5-4.5) L 06/28/21 03:00 Magnesium 2.10 mg/dL (1.7-2.3) 06/28/21 03:00 Ferritin 102.1 ng/mL (10.0-200.0) 06/22/21 08:56 Total Bilirubin 0.30 mg/dL (0.1-1.2) 06/26/21 04:32 Direct Bilirubin < 0.2 mg/dL (0-0.2) 06/26/21 04:32 Indirect Bilirubin 0.1 mg/dL 06/26/21 04:32 AST 33 units/L (5-40) 06/26/21 04:32 ALT 20 units/L (7-56) 06/26/21 04:32 Alkaline Phosphatase 62 units/L (35-129) 06/26/21 04:32 Lactate Dehydrogenase 220 units/L (91-180) H 06/22/21 08:56 Troponin T < 0.010 ng/mL (0.00-0.029) 06/22/21 07:58 C-Reactive Protein 5.40 mg/dL (0.00-1.30) H 06/22/21 08:56 Total Protein 5.9 g/dL (6.3-8.2) L 06/26/21 04:32 Albumin 2.8 g/dL (3.9-5) L 06/26/21 04:32 Albumin/Globulin Ratio 0.9 % 06/26/21 04:32 Procalcitonin < 0.05 ng/mL (<0.15) 06/22/21 08:56 TSH 1.070 mlU/mL (0.270-4.200) 06/22/21 07:58 Total Cortisol 49.6 mcg/dL () 06/22/21 11:28 Arterial Blood Glucose 328 mg/dL (65-95) H 06/27/21 05:06 Arterial Blood Ionized Calcium 4.9 mg/dL (4.6-5.3) 06/27/21 05:06 Urine Color Yellow (Yellow) 06/26/21 09:48 Urine Turbidity Slightly-cloudy (Clear) 06/26/21 09:48 Urine pH 6.0 (5.0-7.0) 06/26/21 09:48 Ur Specific [place] 1.014 (1.003-1.030) 06/26/21 09:48 Urine Protein 30 mg/dl mg/dL (Negative) 06/26/21 09:48 Urine Glucose (UA) 50 mg/dL (Negative) 06/26/21 09:48 Urine Ketones 20 mg/dL (Negative) 06/26/21 09:48 Urine Blood Mod (Negative) 06/26/21 09:48 Urine Nitrite Neg (Negative) 06/26/21 09:48 Urine Bilirubin Neg (Negative) 06/26/21 09:48 Urine Urobilinogen < 2.0 mg/dL (<2.0) 06/26/21 09:48 Ur Leukocyte Esterase Mod (Negative) 06/26/21 09:48 Urine WBC (Auto) 69.0 /HPF (0.0-6.0) H 06/26/21 09:48 Urine RBC (Auto) 29.0 /HPF (0.0-6.0) 06/26/21 09:48 U Epithel Cells (Auto) 1.0 /HPF (0-13.0) 06/26/21 09:48 Urine Bacteria (Auto) 4+ /HPF (Negative) 06/26/21 09:48 Ur Transition Epith Cell 1 /HPF 06/22/21 11:47 Hyaline Casts 5 /LPF 06/22/21 11:47 Urine Mucus Few /HPF 06/26/21 09:48 Urine Yeast (Budding) 3+ /HPF 06/26/21 09:48 Urine Osmolality 571 Mosm/kg 06/22/21 11:47 Urine Sodium 25 mmol/L 06/22/21 11:47 Coronavirus (PCR) Negative (Negative) 06/22/21 Unknown Microbiology: Microbiology 06/26/21 09:48 Urine,Clean Catch Urine Culture - Preliminary 06/26/21 16:06 Peripheral/Venous Blood Culture - Preliminary NO GROWTH AFTER 24 HOURS 06/26/21 16:06 Peripheral/Venous Blood Culture - Preliminary NO GROWTH AFTER 24 HOURS Active Medications - Current Medications Current Medications: Generic Name Dose Route Start Last Admin Trade Name Freq PRN Reason Stop Dose Admin Acetaminophen 650 mg 06/22/21 22:21 06/23/21 12:13 Acetaminophen 325 Mg Tab PO 650 mg Q4H PRN Administration Pain MILD(1-3)/Fever >100.5/NAVA Lipase/Protease/Amylase 1 each 06/26/21 11:31 Lipase 10,500/Protease 25,000/Amylase 43,750 (Units) Dr Castellanos FEEDTUBE PRN PRN For Clogged Feeding Tube Clopidogrel Bisulfate 75 mg 06/23/21 10:00 06/28/21 09:09 Clopidogrel 75 Mg Tab PO 75 mg DAILY JUDY Administration Docusate Sodium 100 mg 06/25/21 22:00 06/28/21 09:09 Docusate Sodium 100 Mg/10 Ml Oral Liqd PO 100 mg BID JUDY Administration Famotidine 20 mg 06/28/21 10:00 06/28/21 09:09 Famotidine 20 Mg Tab PO 20 mg QDAY JUDY Administration Fentanyl 50 mcg 06/26/21 04:27 06/28/21 02:27 Fentanyl 100 Mcg/2 Ml Inj IV 50 mcg Q10MIN PRN Administration ANALGESIA Hydrocortisone Sodium Succinate 60 mg 06/26/21 22:00 06/28/21 13:46 Hydrocortisone Sod Succ 100 Mg/2 Ml Vial IV 60 mg Q8HR JUDY Administration Heparin Sodium/Sodium Chloride 25,000 unit in 500 mls @ 26 mls/hr 06/25/21 13: 00 06/28/21 11:14 Heparin/ 0.45% Nacl-25,000 Unit/500 Ml IV 1,100 units/hr TITR JUDY 22 mls/hr Administration Protocol 1,300 UNITS/HR NORepinephrine/NS 8 MG-250 ML 8 mg in 250 mls @ 3.75 mls/hr 06/25/21 23:00 06/27/21 17:07 Norepinephrine/Ns 8 Mg-250 Ml (Double Conc) IV 0 mcg/min TITRATE JUDY 0 mls/hr Titration Protocol 2 MCG/MIN Fentanyl Citrate 2,000 mcg in 100 mls @ 4.309 mls/hr 06/26/21 05:00 06/28/21 07:30 Fentanyl Drip Premix IV 0 mcg/kg/hr TITR JUDY 0 mls/hr Titration Protocol 1 MCG/KG/HR Vasopressin 20 unit/ Sodium 101 mls @ 9.09 mls/hr 06/26/21 10:00 06/28/21 07:30 Chloride IV 0 units/min TITR JUDY 0 mls/hr Titration Protocol 0.03 UNITS/MIN Cefepime HCl 2 gm in 100 mls @ 200 mls/hr 06/26/21 10:00 06/28/21 09:18 Cefepime/Ns 2 Gm/100 Ml IV 200 mls/hr Q12H JUDY Administration Protocol Sodium Chloride 1,000 mls @ 100 mls/hr 06/26/21 11:00 06/28/21 04:13 Nacl 0.9% 1000 Ml IV 100 mls/hr DIRECT JUDY Administration Amiodarone HCl 360 mg/ 200 mls @ 33.333 mls/hr 06/28/21 15:00 Dextrose IV DIRECT JUDY Protocol 1 MG/MIN Insulin Glargine 20 units 06/28/21 22:00 Insulin Glargine 100 Units/Ml SUB-Q QHS JUDY Insulin Human Lispro 0 unit 06/26/21 12:00 06/28/21 11:58 Insulin Lispro 100 Unit/Ml SUB-Q 6 unit Q6HR JUDY Administration Protocol Metoclopramide HCl 10 mg 06/22/21 22:21 Metoclopramide 10 Mg/2 Ml Inj IV Q6H PRN Nausea And Vomiting Ondansetron HCl 4 mg 06/22/21 22:21 Ondansetron 4 Mg/2 Ml Inj IV Q8H PRN Nausea And Vomiting Pravastatin Sodium 40 mg 06/23/21 22:00 06/27/21 21:40 Pravastatin 40 Mg Tab PO 40 mg QHS JUDY Administration Simple Syrup 15 ml 06/26/21 11:31 Simple Syrup 15 Ml FEEDTUBE PRN PRN Hypoglycemia Simple Syrup 30 ml 06/26/21 11:31 Simple Syrup 15 Ml FEEDTUBE PRN PRN Hypoglycemia Sodium Bicarbonate 325 mg 06/26/21 11:31 Sodium Bicarbonate 325 Mg Tab FEEDTUBE PRN PRN For Clogged Feeding Tube Sodium Chloride 10 ml 06/23/21 10:00 06/28/21 09:10 Sodium Chloride 0.9% 10 Ml Flush Syringe IV 10 ml BID JUDY Administration Sodium Chloride 10 ml 06/22/21 22:21 Sodium Chloride 0.9% 10 Ml Flush Syringe IV PRN PRN LINE FLUSH Nutrition/Malnutrition Assess - Dietary Evaluation Nutrition/Malnutrition Findings: Nutrition Notes Start: 06/26/21 11:01 Freq: Status: Active Protocol: Document 06/26/21 11:01 VINCENZO (Rec: 06/26/21 11:34 VINCENZO [id number]) Nutrition Notes Need for Assessment generated from: MD Order Initial or Follow up Assessment Current Diagnosis Diabetes,Hypertension Other Pertinent Diagnosis CA Pneumonia, Hyponatremia, Atr Fib w/RVR, Ac Met Encephalopathy. Current Diet NPO (since 06/25), TF-Osmolite 1.5 Volodymyr @ 43 ml/hr (since L 06/26). Labs/Tests 06/26: Na 123, Cl 79.2, BUN 26 , Glu 202, Tpro 5.9, Alb 2.8. Pertinent Medications 06/26: Nutritionally unremarkable. Height 5 ft 5 in Weight 86.183 kg [place] Body Weight (kg) 56.81 BMI 31.6 Weight change and time frame None reported at admission. Weight Status Obese Subjective/Other Information RD consult for evaluation of nutritional intake and write/ manage TF. Pt on mechanical ventilation. Pt sedated. Pt has missing teeth. Percent of energy/protein needs met: Pt currently on NPO. Burn Absent Trauma Absent GI Symptoms None Food Allergy No Skin Integrity/Comment Unspecified bruises. Current % PO Other Minimum of two criteria No #1 Nutrition Diagnosis Inadequate oral intake Etiology Pt 's worsening lethargy and respiratory distress. As Evidenced by Signs and Symptoms Pt on mechanical ventilation and sedated, MD request for write/manage TF. Is patient on ventilator? Yes Is Patient Ambulatory and/or Out of Bed No REE-([place] Jeor-confined to bed) 1700.352 Kcal/Kg value to use for calculation 18 Approximate Energy Requirements Using 1551 kcal/Kg Calculation Used for Recommendations Kcal/kg Additional Notes Protein: 1-1.2 g/Kg; 72-86 g/ day. Fluids: 1 ml/Kcal, or as per MD. Nutrition Intervention Nutrition Support: Start Osmolite 1.5 Volodymyr @ 43 ml /hr. Flush: 130 ml water Q 4 hr. Kcal 1,551 Protein (gm) 65 Carbohydrates (gm) 211 Fat (gm) 51 Fluid (mL) 788 Fiber (gm) 0 % RDI: 100% Kcal; 90% AA. Goal #1 Provide at least 75% of energy /protein needs through Enteral Feeding during LOS. Follow-Up By: 06/29/21 Additional Comments Continue monitoring TF tolerance and BM.
--- NOTE | 2021-06-28 19:14 | Progress Note ---
Assessment and Plan Acute Encephalopathy Symptomatic Hyponatremia Acute Respiratory Failure PNA UTI Hypotension AF with RVR (new onset) Hypokalemia (resolved) Hypomagnesemia (resolved) H/o HTN DM2 H/o Tobacco Abuse Plan: Echo reviewed - EF 60-65%, no significant valvular abnormalities. May continue IV Amiodarone gtt @ 0.5mg/min to facilitate rhythm control if needed while weaning vent. Will also add low-dose beta jeimy and titrate up as hemodynamically permissible. Transition from heparin gtt to Eliquis 5mg BID for CVA prophylaxis. Pt seen in conjunction with Dr. Romano, who agrees with the assessment and plan of care. - Patient Problems (1) Atrial fibrillation with RVR Current Visit: Yes Status: Acute Subjective Date of service: 06/28/21 Principal diagnosis: AF w RVR Interval history: Remains on mechanical ventilation. Responsive. Off vasopressors. In SR 70-80s on tele (intermittently up to 100-110s). Had a brief run of AF w RVR when changed to pressure support ventilation. Converted back to SR promptly with IV amiodarone. Objective Last Vital Signs Temp 98.0 F 06/28/21 16:00 Pulse 108 H 06/28/21 18:01 Resp 20 06/28/21 18:01 BP 162/74 06/28/21 18:01 Pulse Ox 97 06/28/21 18:01 - Physical Examination General: Other (intubated) HEENT: Positive: Normocephaly, Mucus Membranes Dry Neck: Positive: neck supple, trachea midline Cardiac: Positive: Reg Rate and Rhythm, S1/S2 Lungs: Positive: Ventilated Respirations Neuro: Positive: Other (intubated) Abdomen: Positive: Soft Skin: Negative: Rash Musculoskeletal: No Fluid Collection Extremities: Present: lower extr. pulses, warm. Absent: edema - Labs and Meds CBC 06/28/21 Range/Units 03:00 WBC 14.9 H (4.5-11.0) K/mm3 RBC 3.46 L (3.65-5.03) M/mm3 Hgb 10.3 (10.1-14.3) gm/dl Hct 31.9 (30.3-42.9) % Plt Count 391 (140-440) K/mm3 Lymph # (Auto) 0.4 L (1.2-5.4) K/mm3 [place] # (Auto) 1.1 H (0.0-0.8) K/mm3 Eos # (Auto) 0.0 (0.0-0.4) K/mm3 Baso # (Auto) 0.0 (0.0-0.1) K/mm3 Comprehensive Metabolic Panel 06/28/21 Range/Units 03:00 Sodium 134 L (137-145) mmol/L Potassium 3.8 (3.6-5.0) mmol/L Chloride 91.1 L (98-107) mmol/L Carbon Dioxide 23 (22-30) mmol/L BUN 35 H (7-17) mg/dL Creatinine 0.6 (0.6-1.2) mg/dL Glucose 235 H (65-100) mg/dL Calcium 8.5 (8.4-10.2) mg/dL - Imaging and Cardiology EKG: report reviewed, image reviewed Echo: report reviewed - Telemetry EKG Rhythm: Sinus Rhythm - EKG Supraventricular dysrhythmia: atrial fibrillation Ventricular dysrhythmias: ventricular premature com Myocardial infarction: septal DE (old age or ind, anterior DE (old age or i - Allied health notes Allied health notes reviewed: nursing
--- NOTE | 2021-06-28 20:59 | Progress Note ---
Assessment and Plan Imp: 1. UTI/CAP 2. Acute respiratory failure, hypoxia 3. Hyponatremia 4. Afib w/ RVR 5. Acute metabolic encephalopathy Rec: 1. PSV trials; turn PEEP to +6; possible extubation soon 2. Cont. ABX and stress-dosed steroids for now 3. TFs, DVT/GI PPx 4. Sodium corrected 5. Further plans pending clinical course 6. CCt 31 minutes 7. No family present Subjective Date of service: 06/28/21 Principal diagnosis: AF w RVR Interval history: No events. PSV not done due to being on PEEP of +8. She cannot give history. Active Medications Acetaminophen (Acetaminophen 325 Mg Tab) 650 mg PO Q4H PRN PRN Reason: Pain MILD(1-3)/Fever >100.5/NAVA Last Admin: 06/23/21 12:13 Dose: 650 mg Documented by: Lipase/Protease/Amylase (Lipase 10,500/Protease 25,000/Amylase 43,750 (Units) Dr Castellanos) 1 each FEEDTUBE PRN PRN PRN Reason: For Clogged Feeding Tube Clopidogrel Bisulfate (Clopidogrel 75 Mg Tab) 75 mg PO DAILY [facility] Last Admin: 06/28/21 09:09 Dose: 75 mg Documented by: Docusate Sodium (Docusate Sodium 100 Mg/10 Ml Oral Liqd) 100 mg PO BID [facility] Last Admin: 06/28/21 09:09 Dose: 100 mg Documented by: Famotidine (Famotidine 20 Mg Tab) 20 mg PO QDAY [facility] Last Admin: 06/28/21 09:09 Dose: 20 mg Documented by: Fentanyl (Fentanyl 100 Mcg/2 Ml Inj) 50 mcg IV Q10MIN PRN PRN Reason: ANALGESIA Last Admin: 06/28/21 02:27 Dose: 50 mcg Documented by: Hydrocortisone Sodium Succinate (Hydrocortisone Sod Succ 100 Mg/2 Ml Vial) 60 mg IV Q12HR [facility] Heparin Sodium/Sodium Chloride (Heparin/ 0.45% Nacl-25,000 Unit/500 Ml) 25,000 unit in 500 mls @ 26 mls/hr IV TITR [facility]; Protocol Last Admin: 06/28/21 11:14 Dose: 1,100 units/hr, 22 mls/hr Documented by: NORepinephrine/NS 8 MG-250 ML (Norepinephrine/Ns 8 Mg-250 Ml (Double Conc)) 8 mg in 250 mls @ 3.75 mls/hr IV TITRATE [facility]; Protocol Last Titration: 06/27/21 17:07 Dose: 0 mcg/min, 0 mls/hr Documented by: Fentanyl Citrate (Fentanyl Drip Premix) 2,000 mcg in 100 mls @ 4.309 mls/hr IV TITR [facility]; Protocol Last Titration: 06/28/21 07:30 Dose: 0 mcg/kg/hr, 0 mls/hr Documented by: Vasopressin 20 unit/ Sodium (Chloride) 101 mls @ 9.09 mls/hr IV TITR [facility]; Protocol Last Titration: 06/28/21 07:30 Dose: 0 units/min, 0 mls/hr Documented by: Cefepime HCl (Cefepime/Ns 2 Gm/100 Ml) 2 gm in 100 mls @ 200 mls/hr IV Q12H [facility]; Protocol Last Admin: 06/28/21 09:18 Dose: 200 mls/hr Documented by: Sodium Chloride (Nacl 0.9% 1000 Ml) 1,000 mls @ 100 mls/hr IV DIRECT [facility] Last Admin: 06/28/21 19:26 Dose: 100 mls/hr Documented by: Amiodarone HCl 360 mg/ (Dextrose) 200 mls @ 33.333 mls/hr IV DIRECT [facility]; Protocol Insulin Glargine (Insulin Glargine 100 Units/Ml) 20 units SUB-Q QHS [facility] Insulin Human Lispro (Insulin Lispro 100 Unit/Ml) 0 unit SUB-Q Q6HR [facility]; Protocol Last Admin: 06/28/21 17:15 Dose: 4 unit Documented by: Metoclopramide HCl (Metoclopramide 10 Mg/2 Ml Inj) 10 mg IV Q6H PRN PRN Reason: Nausea And Vomiting Metoprolol Tartrate (Metoprolol Tartrate 25 Mg Tab) 25 mg PO BID [facility] Ondansetron HCl (Ondansetron 4 Mg/2 Ml Inj) 4 mg IV Q8H PRN PRN Reason: Nausea And Vomiting Pravastatin Sodium (Pravastatin 40 Mg Tab) 40 mg PO QHS [facility] Last Admin: 06/27/21 21:40 Dose: 40 mg Documented by: Simple Syrup (Simple Syrup 15 Ml) 15 ml FEEDTUBE PRN PRN PRN Reason: Hypoglycemia Simple Syrup (Simple Syrup 15 Ml) 30 ml FEEDTUBE PRN PRN PRN Reason: Hypoglycemia Sodium Bicarbonate (Sodium Bicarbonate 325 Mg Tab) 325 mg FEEDTUBE PRN PRN PRN Reason: For Clogged Feeding Tube Sodium Chloride (Sodium Chloride 0.9% 10 Ml Flush Syringe) 10 ml IV BID [facility] Last Admin: 06/28/21 09:10 Dose: 10 ml Documented by: Sodium Chloride (Sodium Chloride 0.9% 10 Ml Flush Syringe) 10 ml IV PRN PRN PRN Reason: LINE FLUSH Objective Vital Signs - 12hr 06/28/21 06/28/21 06/28/21 09:01 09:15 09:30 Temperature Pulse Rate 85 117 H 95 H Pulse Rate [ From Monitor] Respiratory 21 19 28 H Rate Blood Pressure 124/52 129/102 122/52 O2 Sat by Pulse 97 96 97 Oximetry 06/28/21 06/28/21 06/28/21 09:40 09:45 10:00 Temperature Pulse Rate 103 H 76 82 Pulse Rate [ From Monitor] Respiratory 24 24 Rate Blood Pressure 128/66 110/50 109/51 O2 Sat by Pulse 98 96 97 Oximetry 06/28/21 06/28/21 06/28/21 10:16 10:31 10:45 Temperature Pulse Rate 103 H 96 H 121 H Pulse Rate [ From Monitor] Respiratory 19 29 H 23 Rate Blood Pressure 128/66 134/63 150/60 O2 Sat by Pulse 97 96 95 Oximetry 06/28/21 06/28/21 06/28/21 11:00 11:09 11:15 Temperature Pulse Rate 114 H 131 H 125 H Pulse Rate [ From Monitor] Respiratory 32 H 24 39 H Rate Blood Pressure 141/63 141/63 129/66 O2 Sat by Pulse 95 97 93 Oximetry 06/28/21 06/28/21 06/28/21 11:30 11:45 11:46 Temperature 98.4 F Pulse Rate 101 H 110 H Pulse Rate [ From Monitor] Respiratory 19 37 H Rate Blood Pressure 118/55 118/55 O2 Sat by Pulse 94 96 Oximetry 06/28/21 06/28/21 06/28/21 12:00 12:01 12:15 Temperature Pulse Rate 120 H 105 H 100 H Pulse Rate [ 76 From Monitor] Respiratory 24 25 H 21 Rate Blood Pressure 135/69 117/61 O2 Sat by Pulse 99 96 96 Oximetry 06/28/21 06/28/2122 12:30 12:45 13:00 Temperature Pulse Rate 90 122 H 119 H Pulse Rate [ From Monitor] Respiratory 20 42 H 23 Rate Blood Pressure 122/62 120/69 146/71 O2 Sat by Pulse 97 95 96 Oximetry 06/28/21 06/28/21 06/28/21 13:15 13:30 13:45 Temperature Pulse Rate 111 H 112 H 104 H Pulse Rate [ From Monitor] Respiratory 33 H 21 24 Rate Blood Pressure 139/66 146/65 126/59 O2 Sat by Pulse 97 96 97 Oximetry 06/28/21 06/28/21 06/28/21 14:00 14:15 14:31 Temperature Pulse Rate 100 H 102 H 124 H Pulse Rate [ From Monitor] Respiratory 22 35 H 46 H Rate Blood Pressure 136/60 133/58 174/77 O2 Sat by Pulse 98 98 97 Oximetry 06/28/21 06/28/21 06/28/21 14:45 14:50 15:00 Temperature Pulse Rate 135 H 126 H 92 H Pulse Rate [ From Monitor] Respiratory 23 20 Rate Blood Pressure 175/78 189/77 116/59 O2 Sat by Pulse 96 100 99 Oximetry 06/28/21 06/28/21 06/28/21 15:15 15:31 15:45 Temperature Pulse Rate 80 85 107 H Pulse Rate [ From Monitor] Respiratory 20 20 21 Rate Blood Pressure 104/56 137/60 116/64 O2 Sat by Pulse 100 100 99 Oximetry 06/28/21 06/28/21 06/28/21 16:00 16:01 16:15 Temperature 98.0 F Pulse Rate 100 H 85 100 H Pulse Rate [ 81 From Monitor] Respiratory 22 17 Rate Blood Pressure 118/68 137/60 117/68 O2 Sat by Pulse 99 100 100 Oximetry 06/28/21 06/28/21 06/28/21 16:30 16:45 17:00 Temperature Pulse Rate 78 86 87 Pulse Rate [ From Monitor] Respiratory 20 19 20 Rate Blood Pressure 126/55 135/63 134/64 O2 Sat by Pulse 100 100 100 Oximetry 06/28/21 06/28/21 06/28/21 17:15 17:30 17:45 Temperature Pulse Rate 104 H 92 H 90 Pulse Rate [ From Monitor] Respiratory 23 12 18 Rate Blood Pressure 137/69 141/63 140/63 O2 Sat by Pulse 99 100 100 Oximetry 06/28/21 06/28/21 06/28/21 18:01 18:15 18:30 Temperature Pulse Rate 108 H 97 H 103 H Pulse Rate [ From Monitor] Respiratory 20 15 20 Rate Blood Pressure 162/74 147/68 155/72 O2 Sat by Pulse 97 98 97 Oximetry 06/28/21 06/28/21 06/28/21 18:45 19:01 19:15 Temperature Pulse Rate 96 H 102 H 87 Pulse Rate [ From Monitor] Respiratory 18 10 L 15 Rate Blood Pressure 162/69 140/67 131/59 O2 Sat by Pulse 99 98 97 Oximetry 06/28/21 06/28/21 06/28/21 19:30 19:45 20:00 Temperature Pulse Rate 93 H 101 H 91 H Pulse Rate [ 99 H From Monitor] Respiratory 20 14 20 Rate Blood Pressure 132/63 156/80 142/59 O2 Sat by Pulse 97 96 95 Oximetry 06/28/21 20:15 Temperature Pulse Rate 126 H Pulse Rate [ From Monitor] Respiratory 24 Rate Blood Pressure 189/77 O2 Sat by Pulse 96 Oximetry Constitutional: other (critically ill on ventilator) Eyes: non-icteric Neck: supple Effort: normal Ascultation: Bilateral: other (coarse BS bilaterally) Cardiovascular: regular rate and rhythm (ir/ir, no mrg) Gastrointestinal: normoactive bowel sounds, soft, non-distended Integumentary: normal Extremities: no cyanosis, no edema, pink and warm Neurologic: normal mental status, non-focal exam, pupils equal and round, CN II- XII normal Psychiatric: mood appropriate, affect normal CBC and BMP: 06/28/21 03:00 06/28/21 03:00 ABG, PT/INR, D-dimer: ABG ABG pH 7.480 (7.320-7.450) H 06/27/21 05:06 POC ABG pCO2 38.0 mmHg (32.0-48.0) 06/27/21 05:06 ABG pCO2 35.8 mm Hg 06/26/21 10:00 POC ABG pO2 93.6 mmHg (83-108) 06/27/21 05:06 ABG pO2 125.4 mm Hg (80.0-90.0) H 06/26/21 10:00 POC ABG HCO3 27.7 06/27/21 05:06 ABG O2 Saturation 98.0 (0-100) 06/27/21 05:06 PT/INR, D-dimer PT 12.6 Sec. (12.2-14.9) 06/25/21 13:42 INR 0.85 (0.87-1.13) L 06/25/21 13:42 Abnormal lab findings: Abnormal Labs 06/22/21 06/22/21 06/22/21 07:58 07:58 07:58 WBC 13.0 H RBC MCHC 35 H Lymph % (Auto) 6.3 L [place] % (Auto) 7.4 H Lymph # (Auto) 0.8 L [place] # (Auto) 1.0 H Seg Neutrophils % 85.5 H Seg Neuts % (Manual) Lymphocytes % (Manual) Seg Neutrophils # 11.1 H Seg Neutrophils # Man Lymphocytes # (Manual) PT 11.8 L INR 0.78 L Heparin Anti-Xa Level ABG pH POC ABG pCO2 ABG pO2 ABG HCO3 ABG O2 Saturation ABG Base Excess ABG Hemoglobin ABG Oxyhemoglobin ABG Sodium ABG Chloride ABG Glucose Sodium 107 L* Potassium 2.7 L* Chloride 60.0 L Carbon Dioxide 32 H BUN Creatinine 0.5 L Glucose 177 H POC Glucose Hemoglobin A1c Lactic Acid Uric Acid Calcium Phosphorus Magnesium Lactate Dehydrogenase C-Reactive Protein Total Protein Albumin Arterial Blood Glucose Urine WBC (Auto) 06/22/21 06/22/21 06/22/21 08:56 08:56 08:56 WBC RBC MCHC Lymph % (Auto) [place] % (Auto) Lymph # (Auto) [place] # (Auto) Seg Neutrophils % Seg Neuts % (Manual) Lymphocytes % (Manual) Seg Neutrophils # Seg Neutrophils # Man Lymphocytes # (Manual) PT INR Heparin Anti-Xa Level ABG pH POC ABG pCO2 ABG pO2 ABG HCO3 ABG O2 Saturation ABG Base Excess ABG Hemoglobin ABG Oxyhemoglobin ABG Sodium ABG Chloride ABG Glucose Sodium 104 L* Potassium 3.2 L Chloride 60.0 L Carbon Dioxide BUN Creatinine 0.4 L Glucose 179 H 181 H POC Glucose Hemoglobin A1c Lactic Acid 2.10 H* Uric Acid Calcium Phosphorus Magnesium Lactate Dehydrogenase 220 H C-Reactive Protein 5.40 H Total Protein Albumin Arterial Blood Glucose Urine WBC (Auto) 06/22/21 06/22/21 06/22/21 11:47 14:20 18:19 WBC RBC MCHC Lymph % (Auto) [place] % (Auto) Lymph # (Auto) [place] # (Auto) Seg Neutrophils % Seg Neuts % (Manual) Lymphocytes % (Manual) Seg Neutrophils # Seg Neutrophils # Man Lymphocytes # (Manual) PT INR Heparin Anti-Xa Level ABG pH POC ABG pCO2 ABG pO2 ABG HCO3 ABG O2 Saturation ABG Base Excess ABG Hemoglobin ABG Oxyhemoglobin ABG Sodium ABG Chloride ABG Glucose Sodium 112 L* D 112 L* Potassium 2.7 L* 2.7 L* Chloride 65.2 L 65.8 L Carbon Dioxide 32 H 31 H BUN Creatinine 0.4 L 0.3 L Glucose 119 H POC Glucose Hemoglobin A1c Lactic Acid Uric Acid Calcium Phosphorus Magnesium Lactate Dehydrogenase C-Reactive Protein Total Protein Albumin Arterial Blood Glucose Urine WBC (Auto) 11.0 H 06/23/21 06/23/21 06/23/21 05:29 05:29 05:29 WBC 12.4 H RBC MCHC Lymph % (Auto) 5.8 L [place] % (Auto) Lymph # (Auto) 0.7 L [place] # (Auto) 0.9 H Seg Neutrophils % 87.1 H Seg Neuts % (Manual) Lymphocytes % (Manual) Seg Neutrophils # 10.8 H Seg Neutrophils # Man Lymphocytes # (Manual) PT INR Heparin Anti-Xa Level ABG pH POC ABG pCO2 ABG pO2 ABG HCO3 ABG O2 Saturation ABG Base Excess ABG Hemoglobin ABG Oxyhemoglobin ABG Sodium ABG Chloride ABG Glucose Sodium 112 L* Potassium 2.6 L* Chloride 67.5 L Carbon Dioxide 33 H BUN Creatinine 0.4 L Glucose POC Glucose Hemoglobin A1c 6.6 H Lactic Acid Uric Acid 3.2 L Calcium Phosphorus Magnesium Lactate Dehydrogenase C-Reactive Protein Total Protein Albumin Arterial Blood Glucose Urine WBC (Auto) 06/23/21 06/23/21 06/23/21 05:29 12:11 17:43 WBC RBC MCHC Lymph % (Auto) [place] % (Auto) Lymph # (Auto) [place] # (Auto) Seg Neutrophils % Seg Neuts % (Manual) Lymphocytes % (Manual) Seg Neutrophils # Seg Neutrophils # Man Lymphocytes # (Manual) PT INR Heparin Anti-Xa Level ABG pH POC ABG pCO2 ABG pO2 ABG HCO3 ABG O2 Saturation ABG Base Excess ABG Hemoglobin ABG Oxyhemoglobin ABG Sodium ABG Chloride ABG Glucose Sodium 113 L* 117 L* Potassium 2.6 L* Chloride 69.7 L 74.9 L Carbon Dioxide BUN Creatinine 0.4 L 0.3 L Glucose 106 H 125 H POC Glucose Hemoglobin A1c Lactic Acid Uric Acid Calcium Phosphorus Magnesium 1.50 L Lactate Dehydrogenase C-Reactive Protein Total Protein Albumin Arterial Blood Glucose Urine WBC (Auto) 06/24/21 06/24/21 06/24/21 00:43 00:45 05:33 WBC RBC MCHC Lymph % (Auto) [place] % (Auto) Lymph # (Auto) [place] # (Auto) Seg Neutrophils % Seg Neuts % (Manual) Lymphocytes % (Manual) Seg Neutrophils # Seg Neutrophils # Man Lymphocytes # (Manual) PT INR Heparin Anti-Xa Level ABG pH POC ABG pCO2 ABG pO2 ABG HCO3 ABG O2 Saturation ABG Base Excess ABG Hemoglobin ABG Oxyhemoglobin ABG Sodium ABG Chloride ABG Glucose Sodium 119 L* 122 L Potassium Chloride 79.6 L 80.2 L Carbon Dioxide 32 H 31 H BUN Creatinine 0.4 L 0.3 L Glucose 116 H 143 H POC Glucose 117 H Hemoglobin A1c Lactic Acid Uric Acid Calcium Phosphorus Magnesium Lactate Dehydrogenase C-Reactive Protein Total Protein Albumin Arterial Blood Glucose Urine WBC (Auto) 06/24/21 06/24/21 06/24/21 05:33 06:11 16:25 WBC 12.0 H RBC MCHC Lymph % (Auto) [place] % (Auto) Lymph # (Auto) [place] # (Auto) Seg Neutrophils % Seg Neuts % (Manual) 95.0 H Lymphocytes % (Manual) 2.0 L Seg Neutrophils # Seg Neutrophils # Man 11.4 H Lymphocytes # (Manual) 0.2 L PT INR Heparin Anti-Xa Level ABG pH POC ABG pCO2 ABG pO2 ABG HCO3 ABG O2 Saturation ABG Base Excess ABG Hemoglobin ABG Oxyhemoglobin ABG Sodium ABG Chloride ABG Glucose Sodium 122 L Potassium Chloride 78.9 L Carbon Dioxide 32 H BUN Creatinine 0.5 L D Glucose 141 H POC Glucose 141 H Hemoglobin A1c Lactic Acid Uric Acid Calcium Phosphorus Magnesium Lactate Dehydrogenase C-Reactive Protein Total Protein Albumin Arterial Blood Glucose Urine WBC (Auto) 06/24/21 06/24/21 06/25/21 18:16 23:49 00:18 WBC RBC MCHC Lymph % (Auto) [place] % (Auto) Lymph # (Auto) [place] # (Auto) Seg Neutrophils % Seg Neuts % (Manual) Lymphocytes % (Manual) Seg Neutrophils # Seg Neutrophils # Man Lymphocytes # (Manual) PT INR Heparin Anti-Xa Level ABG pH POC ABG pCO2 ABG pO2 ABG HCO3 ABG O2 Saturation ABG Base Excess ABG Hemoglobin ABG Oxyhemoglobin ABG Sodium ABG Chloride ABG Glucose Sodium 123 L 122 L Potassium Chloride Carbon Dioxide BUN Creatinine Glucose POC Glucose 162 H Hemoglobin A1c Lactic Acid Uric Acid Calcium Phosphorus Magnesium Lactate Dehydrogenase C-Reactive Protein Total Protein Albumin Arterial Blood Glucose Urine WBC (Auto) 06/25/21 06/25/21 06/25/21 03:06 06:15 10:19 WBC RBC MCHC Lymph % (Auto) [place] % (Auto) Lymph # (Auto) [place] # (Auto) Seg Neutrophils % Seg Neuts % (Manual) Lymphocytes % (Manual) Seg Neutrophils # Seg Neutrophils # Man Lymphocytes # (Manual) PT INR Heparin Anti-Xa Level ABG pH POC ABG pCO2 ABG pO2 ABG HCO3 ABG O2 Saturation ABG Base Excess ABG Hemoglobin ABG Oxyhemoglobin ABG Sodium ABG Chloride ABG Glucose Sodium Potassium Chloride Carbon Dioxide BUN Creatinine Glucose POC Glucose 151 H 149 H 152 H Hemoglobin A1c Lactic Acid Uric Acid Calcium Phosphorus Magnesium Lactate Dehydrogenase C-Reactive Protein Total Protein Albumin Arterial Blood Glucose Urine WBC (Auto) 06/25/21 06/25/21 06/25/21 13:42 13:42 15:13 WBC RBC MCHC Lymph % (Auto) [place] % (Auto) Lymph # (Auto) [place] # (Auto) Seg Neutrophils % Seg Neuts % (Manual) Lymphocytes % (Manual) Seg Neutrophils # Seg Neutrophils # Man Lymphocytes # (Manual) PT INR 0.85 L Heparin Anti-Xa Level < 0.10 L ABG pH POC ABG pCO2 ABG pO2 ABG HCO3 ABG O2 Saturation ABG Base Excess ABG Hemoglobin ABG Oxyhemoglobin ABG Sodium ABG Chloride ABG Glucose Sodium 123 L Potassium Chloride 78.5 L Carbon Dioxide 32 H BUN 19 H Creatinine Glucose 193 H POC Glucose Hemoglobin A1c Lactic Acid Uric Acid Calcium Phosphorus Magnesium Lactate Dehydrogenase C-Reactive Protein Total Protein Albumin Arterial Blood Glucose Urine WBC (Auto) 06/25/21 06/25/21 06/25/21 15:21 19:49 21:21 WBC RBC MCHC Lymph % (Auto) [place] % (Auto) Lymph # (Auto) [place] # (Auto) Seg Neutrophils % Seg Neuts % (Manual) Lymphocytes % (Manual) Seg Neutrophils # Seg Neutrophils # Man Lymphocytes # (Manual) PT INR Heparin Anti-Xa Level ABG pH 7.086 L POC ABG pCO2 104.9 H ABG pO2 ABG HCO3 ABG O2 Saturation ABG Base Excess ABG Hemoglobin ABG Oxyhemoglobin 92.4 L ABG Sodium 123.4 L ABG Chloride 81.0 L ABG Glucose 225 H Sodium Potassium Chloride Carbon Dioxide BUN Creatinine Glucose POC Glucose 221 H 194 H Hemoglobin A1c Lactic Acid Uric Acid Calcium Phosphorus Magnesium Lactate Dehydrogenase C-Reactive Protein Total Protein Albumin Arterial Blood Glucose 225 H Urine WBC (Auto) 06/25/21 06/25/21 06/26/21 22:55 22:55 00:35 WBC 14.8 H RBC MCHC Lymph % (Auto) [place] % (Auto) Lymph # (Auto) [place] # (Auto) Seg Neutrophils % Seg Neuts % (Manual) 91.0 H Lymphocytes % (Manual) 6.0 L Seg Neutrophils # Seg Neutrophils # Man 13.5 H Lymphocytes # (Manual) 0.9 L PT INR Heparin Anti-Xa Level ABG pH POC ABG pCO2 ABG pO2 439.6 H ABG HCO3 30.0 H ABG O2 Saturation 99.6 H ABG Base Excess 3.3 H ABG Hemoglobin ABG Oxyhemoglobin ABG Sodium ABG Chloride ABG Glucose Sodium 124 L Potassium Chloride 82.9 L Carbon Dioxide BUN 22 H Creatinine Glucose 226 H POC Glucose Hemoglobin A1c Lactic Acid Uric Acid Calcium 8.2 L Phosphorus 4.70 H Magnesium Lactate Dehydrogenase C-Reactive Protein Total Protein Albumin Arterial Blood Glucose Urine WBC (Auto) 06/26/21 06/26/21 06/26/21 02:58 04:32 05:53 WBC RBC MCHC Lymph % (Auto) [place] % (Auto) Lymph # (Auto) [place] # (Auto) Seg Neutrophils % Seg Neuts % (Manual) Lymphocytes % (Manual) Seg Neutrophils # Seg Neutrophils # Man Lymphocytes # (Manual) PT INR Heparin Anti-Xa Level ABG pH POC ABG pCO2 ABG pO2 ABG HCO3 ABG O2 Saturation ABG Base Excess ABG Hemoglobin ABG Oxyhemoglobin ABG Sodium ABG Chloride ABG Glucose Sodium 123 L Potassium Chloride 79.2 L Carbon Dioxide BUN 26 H Creatinine Glucose 202 H POC Glucose 227 H 187 H Hemoglobin A1c Lactic Acid Uric Acid Calcium Phosphorus Magnesium Lactate Dehydrogenase C-Reactive Protein Total Protein 5.9 L Albumin 2.8 L Arterial Blood Glucose Urine WBC (Auto) 06/26/21 06/26/21 06/26/21 09:14 09:48 10:00 WBC RBC MCHC Lymph % (Auto) [place] % (Auto) Lymph # (Auto) [place] # (Auto) Seg Neutrophils % Seg Neuts % (Manual) Lymphocytes % (Manual) Seg Neutrophils # Seg Neutrophils # Man Lymphocytes # (Manual) PT INR Heparin Anti-Xa Level ABG pH 7.467 H POC ABG pCO2 ABG pO2 125.4 H ABG HCO3 ABG O2 Saturation ABG Base Excess ABG Hemoglobin ABG Oxyhemoglobin ABG Sodium ABG Chloride ABG Glucose Sodium Potassium Chloride Carbon Dioxide BUN Creatinine Glucose POC Glucose 194 H Hemoglobin A1c Lactic Acid Uric Acid Calcium Phosphorus Magnesium Lactate Dehydrogenase C-Reactive Protein Total Protein Albumin Arterial Blood Glucose Urine WBC (Auto) 69.0 H 06/26/21 06/26/21 06/26/21 16:06 22:34 23:32 WBC RBC MCHC Lymph % (Auto) [place] % (Auto) Lymph # (Auto) [place] # (Auto) Seg Neutrophils % Seg Neuts % (Manual) Lymphocytes % (Manual) Seg Neutrophils # Seg Neutrophils # Man Lymphocytes # (Manual) PT INR Heparin Anti-Xa Level ABG pH POC ABG pCO2 ABG pO2 ABG HCO3 ABG O2 Saturation ABG Base Excess ABG Hemoglobin ABG Oxyhemoglobin ABG Sodium ABG Chloride ABG Glucose Sodium 128 L 126 L Potassium Chloride 88.6 L 89.2 L Carbon Dioxide BUN 32 H 34 H Creatinine Glucose 161 H 257 H POC Glucose 231 H Hemoglobin A1c Lactic Acid Uric Acid Calcium Phosphorus Magnesium Lactate Dehydrogenase C-Reactive Protein Total Protein Albumin Arterial Blood Glucose Urine WBC (Auto) 06/27/21 06/27/21 06/27/21 05:06 06:00 06:00 WBC 12.0 H RBC MCHC Lymph % (Auto) [place] % (Auto) Lymph # (Auto) [place] # (Auto) Seg Neutrophils % Seg Neuts % (Manual) Lymphocytes % (Manual) Seg Neutrophils # Seg Neutrophils # Man Lymphocytes # (Manual) PT INR Heparin Anti-Xa Level ABG pH 7.480 H POC ABG pCO2 ABG pO2 ABG HCO3 ABG O2 Saturation ABG Base Excess ABG Hemoglobin 11.9 L ABG Oxyhemoglobin ABG Sodium 123.5 L ABG Chloride 91.0 L ABG Glucose 328 H Sodium 128 L Potassium Chloride 91.4 L Carbon Dioxide BUN 36 H Creatinine Glucose 346 H POC Glucose Hemoglobin A1c Lactic Acid Uric Acid Calcium Phosphorus Magnesium Lactate Dehydrogenase C-Reactive Protein Total Protein Albumin Arterial Blood Glucose 328 H Urine WBC (Auto) 06/27/21 06/27/21 06/27/21 11:41 17:06 23:36 WBC RBC MCHC Lymph % (Auto) [place] % (Auto) Lymph # (Auto) [place] # (Auto) Seg Neutrophils % Seg Neuts % (Manual) Lymphocytes % (Manual) Seg Neutrophils # Seg Neutrophils # Man Lymphocytes # (Manual) PT INR Heparin Anti-Xa Level ABG pH POC ABG pCO2 ABG pO2 ABG HCO3 ABG O2 Saturation ABG Base Excess ABG Hemoglobin ABG Oxyhemoglobin ABG Sodium ABG Chloride ABG Glucose Sodium Potassium Chloride Carbon Dioxide BUN Creatinine Glucose POC Glucose 259 H 301 H 215 H Hemoglobin A1c Lactic Acid Uric Acid Calcium Phosphorus Magnesium Lactate Dehydrogenase C-Reactive Protein Total Protein Albumin Arterial Blood Glucose Urine WBC (Auto) 06/28/21 06/28/21 06/28/21 03:00 03:00 03:00 WBC 14.9 H RBC 3.46 L MCHC Lymph % (Auto) 2.8 L [place] % (Auto) 7.5 H Lymph # (Auto) 0.4 L [place] # (Auto) 1.1 H Seg Neutrophils % 89.6 H Seg Neuts % (Manual) Lymphocytes % (Manual) Seg Neutrophils # 13.4 H Seg Neutrophils # Man Lymphocytes # (Manual) PT INR Heparin Anti-Xa Level 0.27 L ABG pH POC ABG pCO2 ABG pO2 ABG HCO3 ABG O2 Saturation ABG Base Excess ABG Hemoglobin ABG Oxyhemoglobin ABG Sodium ABG Chloride ABG Glucose Sodium 134 L Potassium Chloride 91.1 L Carbon Dioxide BUN 35 H Creatinine Glucose 235 H POC Glucose Hemoglobin A1c Lactic Acid Uric Acid Calcium Phosphorus 1.10 L Magnesium Lactate Dehydrogenase C-Reactive Protein Total Protein Albumin Arterial Blood Glucose Urine WBC (Auto) 06/28/21 06/28/21 05:13 16:53 WBC RBC MCHC Lymph % (Auto) [place] % (Auto) Lymph # (Auto) [place] # (Auto) Seg Neutrophils % Seg Neuts % (Manual) Lymphocytes % (Manual) Seg Neutrophils # Seg Neutrophils # Man Lymphocytes # (Manual) PT INR Heparin Anti-Xa Level ABG pH POC ABG pCO2 ABG pO2 ABG HCO3 ABG O2 Saturation ABG Base Excess ABG Hemoglobin ABG Oxyhemoglobin ABG Sodium ABG Chloride ABG Glucose Sodium Potassium Chloride Carbon Dioxide BUN Creatinine Glucose POC Glucose 241 H 213 H Hemoglobin A1c Lactic Acid Uric Acid Calcium Phosphorus Magnesium Lactate Dehydrogenase C-Reactive Protein Total Protein Albumin Arterial Blood Glucose Urine WBC (Auto) Chest x-ray: report reviewed, image reviewed Allied health notes reviewed: nursing
[2021-06-28] MEDS: PRAVASTATIN 40 MG TAB PO SCH (21:17)
[2021-06-28] MEDS: INSULIN GLARGINE 100 UNITS/ML SUB-Q SCH (21:32)
[2021-06-29] MEDS: METOPROLOL TARTRATE 25 MG TAB PO SCH ×2 (00:51→09:05)
[2021-06-29] MEDS: INSULIN LISPRO 100 UNIT/ML SUB-Q SCH ×4 (00:56→18:14)
--- NOTE | 2021-06-29 02:40 | XRay Report ---
CHEST 1 VIEW INDICATION / CLINICAL INFORMATION: follow up respiratory failure. COMPARISON: 06/28/2021 FINDINGS: SUPPORT DEVICES: Stable and satisfactory positioning of ET tube, CVL, and NG tube. HEART / MEDIASTINUM: No significant abnormality. LUNGS / PLEURA: The lungs remain hyperinflated consistent with COPD. Mild pulmonary vascular congesti on has developed. No pneumothorax. ADDITIONAL FINDINGS: No significant additional findings. IMPRESSION: 1. Mild pulmonary vascular congestion. COPD. Signer Name: Ashley Pennington MD Signed: 06/29/2021 2:36 AM Workstation Name: [id number]
[2021-06-29] MEDS: SODIUM CHLORIDE 0.9% 1000 ML 1,000 ML IV SCH ×2 (05:10→16:22)
[2021-06-29 05:44] LABS: Alanine Aminotransferase 9 units/L (7-56); Albumin 1.9 g/dL (3.9-5); BUN/Creatinine Ratio 68; Blood Urea Nitrogen 34 mg/dL (7-17); Calcium 8.8 mg/dL (8.4-10.2); Hemolysis Index 50
[2021-06-29 05:54] LABS: Basophils # (Auto) TNR K/mm3 (0.0-0.1); Basophils % (Auto) TNR % (0.0-1.8); Eosinophils # (Auto) TNR K/mm3 (0.0-0.4); Eosinophils % (Auto) TNR % (0.0-4.3); Hematocrit TNR % (30.3-42.9); Hemoglobin TNR gm/dl (10.1-14.3); Lymphocytes # (Auto) TNR K/mm3 (1.2-5.4); Lymphocytes % (Auto) TNR % (13.4-35.0); Monocytes # (Auto) TNR K/mm3 (0.0-0.8); Monocytes % (Auto) TNR % (0.0-7.3); Red Blood Count TNR M/mm3 (3.65-5.03)
[2021-06-29 05:55] LABS: Mean Corpuscular HGB Conc TNR % (30-34); Mean Corpuscular Volume TNR fl (79-97); Platelet Count TNR K/mm3 (140-440); Red Cell Distribution Width TNR % (13.2-15.2)
[2021-06-29 07:01] LABS: Basophils # (Auto) 0.1 K/mm3 (0.0-0.1); Basophils % (Auto) 1.2 % (0.0-1.8); Eosinophils % (Auto) 0.3 % (0.0-4.3); Hematocrit 30.5 % (30.3-42.9); Lymphocytes # (Auto) 1.2 K/mm3 (1.2-5.4); Lymphocytes % (Auto) 9.5 % (13.4-35.0); Mean Corpuscular HGB Conc 33 % (30-34); Mean Corpuscular Volume 91 fl (79-97); Monocytes # (Auto) 1.1 K/mm3 (0.0-0.8); Monocytes % (Auto) 8.6 % (0.0-7.3); Platelet Count 401 K/mm3 (140-440); Red Blood Count 3.36 M/mm3 (3.65-5.03); Red Cell Distribution Width 14.1 % (13.2-15.2)
[2021-06-29 07:28] LABS: Blood Urea Nitrogen 33 mg/dL (7-17); Calcium 9.7 mg/dL (8.4-10.2); Hemolysis Index 1
[2021-06-29 07:29] LABS: BUN/Creatinine Ratio 55
[2021-06-29] MEDS: DOCUSATE SODIUM 100 MG/10 ML ORAL LIQD PO SCH ×2 (09:05→22:54)
[2021-06-29] MEDS: CLOPIDOGREL 75 MG TAB PO SCH (09:06)
[2021-06-29] MEDS: HYDROCORTISONE SOD SUCC 100 MG/2 ML VIAL IV SCH (09:06)
[2021-06-29] MEDS: FAMOTIDINE 20 MG TAB PO SCH (09:07)
[2021-06-29] MEDS ORDERED: AMIODARONE 150 MG in DEXTROSE 5% IN WATER 97 ML IV SCH (09:30)
[2021-06-29] MEDS: AMIODARONE 360 MG in DEXTROSE 5% IN WATER 192.8 ML IV SCH ×2 (10:07→16:20)
[2021-06-29] MEDS: CEFEPIME/NS 2 GM/100 ML 2 GM/100 ML BAG IV SCH ×2 (10:08→22:55)
--- NOTE | 2021-06-29 10:34 | Progress Note ---
Assessment and Plan - Patient Problems (1) Acute hyponatremia Current Visit: Yes Status: Acute Plan to address problem: Serum sodium levels are showing now an appropriate response with IVF hydration. Will continue current regimen. (2) Acute metabolic encephalopathy Current Visit: Yes Status: Acute Plan to address problem: Intubated at this time secondary to worsening lethargy and respiratory distress. Being that she was still lethargic despite improved serum sodium levels, I do not believe that her hyponatremia is contributing to her altered mental status at the present time. improvement in mental status and patient has been extubated at this time. (3) Atrial fibrillation with RVR Current Visit: Yes Status: Acute Plan to address problem: cardiology recommendations appreciated. (4) Community acquired pneumonia Current Visit: Yes Status: Acute Plan to address problem: antibiotic therapy per primary team. (5) Essential (primary) hypertension Current Visit: Yes Status: Acute Plan to address problem: monitor blood pressure on the current regimen. Currently hypotensive and on pressor support. (6) Type 2 diabetes mellitus without complications Current Visit: Yes Status: Chronic Plan to address problem: diabetes management per primary attending. Subjective Date of service: 06/29/21 Principal diagnosis: AF w RVR Interval history: renal function remained stable. Patient was extubated. She was being suctioned at bedside by respiratory therapy this morning. Objective - Vital Signs Vital signs: Vital Signs - 12hr 06/28/21 06/28/21 06/28/21 22:45 23:00 23:10 Temperature Pulse Rate 88 94 H 101 H Pulse Rate [ From Monitor] Respiratory 20 16 0 L Rate Blood Pressure 140/61 157/71 157/71 O2 Sat by Pulse 98 98 98 Oximetry 06/28/21 06/28/21 06/28/21 23:15 23:30 23:45 Temperature Pulse Rate 94 H 107 H 104 H Pulse Rate [ From Monitor] Respiratory 20 15 15 Rate Blood Pressure 164/71 168/79 163/71 O2 Sat by Pulse 98 97 97 Oximetry 06/29/21 06/29/21 06/29/21 00:00 00:15 00:30 Temperature 98.2 F Pulse Rate 100 H 92 H 100 H Pulse Rate [ 101 H From Monitor] Respiratory 21 15 12 Rate Blood Pressure 172/71 150/61 156/71 O2 Sat by Pulse 97 97 98 Oximetry 06/29/21 06/29/21 06/29/21 00:45 00:51 01:00 Temperature Pulse Rate 87 106 H 92 H Pulse Rate [ From Monitor] Respiratory 20 14 Rate Blood Pressure 144/60 161/68 O2 Sat by Pulse 98 99 Oximetry 06/29/21 06/29/21 06/29/21 01:15 01:30 01:45 Temperature Pulse Rate 84 80 101 H Pulse Rate [ From Monitor] Respiratory 21 20 17 Rate Blood Pressure 150/63 141/61 141/61 O2 Sat by Pulse 99 99 100 Oximetry 06/29/21 06/29/21 06/29/21 02:00 02:15 02:30 Temperature Pulse Rate 99 H 94 H 102 H Pulse Rate [ From Monitor] Respiratory 21 23 16 Rate Blood Pressure 156/67 141/67 168/82 O2 Sat by Pulse 99 99 99 Oximetry 06/29/21 06/29/21 06/29/21 02:45 03:01 03:05 Temperature Pulse Rate 96 H 82 85 Pulse Rate [ From Monitor] Respiratory 20 20 0 L Rate Blood Pressure 158/69 126/56 126/56 O2 Sat by Pulse 99 96 99 Oximetry 06/29/21 06/29/21 06/29/21 03:15 03:30 03:38 Temperature 97.8 F Pulse Rate 86 80 Pulse Rate [ From Monitor] Respiratory 20 8 L Rate Blood Pressure 126/56 127/61 O2 Sat by Pulse 98 98 Oximetry 06/29/21 06/29/21 06/29/21 03:45 04:00 04:15 Temperature Pulse Rate 73 86 73 Pulse Rate [ 75 From Monitor] Respiratory 20 13 9 L Rate Blood Pressure 115/55 136/64 110/52 O2 Sat by Pulse 99 99 99 Oximetry 06/29/21 06/29/21 06/29/21 04:30 04:45 05:00 Temperature Pulse Rate 72 71 71 Pulse Rate [ From Monitor] Respiratory 8 L 0 L 20 Rate Blood Pressure 115/53 105/50 120/54 O2 Sat by Pulse 100 100 99 Oximetry 06/29/21 06/29/21 06/29/21 05:15 05:30 05:45 Temperature Pulse Rate 78 73 73 Pulse Rate [ From Monitor] Respiratory 20 20 0 L Rate Blood Pressure 130/58 101/48 118/55 O2 Sat by Pulse 98 98 95 Oximetry 06/29/21 06/29/21 06/29/21 06:01 06:15 06:30 Temperature Pulse Rate 84 78 83 Pulse Rate [ From Monitor] Respiratory 19 15 13 Rate Blood Pressure 136/63 117/57 115/61 O2 Sat by Pulse 99 97 92 Oximetry 06/29/21 06/29/21 06/29/21 06:45 07:00 07:15 Temperature Pulse Rate 82 80 87 Pulse Rate [ From Monitor] Respiratory 21 20 17 Rate Blood Pressure 119/58 124/52 128/60 O2 Sat by Pulse 92 92 94 Oximetry 06/29/21 06/29/21 06/29/21 07:30 07:45 08:00 Temperature Pulse Rate 85 88 121 H Pulse Rate [ From Monitor] Respiratory 19 16 Rate Blood Pressure 123/56 127/65 O2 Sat by Pulse 94 93 95 Oximetry 06/29/21 06/29/21 06/29/21 08:01 08:15 08:30 Temperature Pulse Rate 121 H 92 H Pulse Rate [ From Monitor] Respiratory 13 14 Rate Blood Pressure 147/89 147/89 O2 Sat by Pulse 95 95 93 Oximetry 06/29/21 06/29/21 06/29/21 08:31 08:36 08:45 Temperature 97.6 F Pulse Rate 130 H 123 H Pulse Rate [ From Monitor] Respiratory 24 23 Rate Blood Pressure 105/69 105/69 O2 Sat by Pulse 97 82 L Oximetry 06/29/21 06/29/21 06/29/21 09:01 09:05 09:15 Temperature Pulse Rate 166 H 171 H 163 H Pulse Rate [ From Monitor] Respiratory 23 35 H Rate Blood Pressure 152/81 152/81 152/81 O2 Sat by Pulse 97 95 Oximetry 06/29/21 06/29/21 06/29/21 09:31 09:38 09:45 Temperature Pulse Rate 150 H 157 H Pulse Rate [ From Monitor] Respiratory 25 H 27 H Rate Blood Pressure 144/76 153/79 O2 Sat by Pulse 96 93 94 Oximetry 06/29/21 10:01 Temperature Pulse Rate 124 H Pulse Rate [ From Monitor] Respiratory 27 H Rate Blood Pressure 134/52 O2 Sat by Pulse 93 Oximetry - General Appearance General appearance: appears stated age, chronically ill EENT: ATNC Neck: no JVD Respiratory: Present: Wheezes Cardiology: regular Gastrointestinal: normal Integumentary: warm and dry Musculoskeletal: deferred - Lab 06/29/21 06:00 06/29/21 06:00 Most recent lab results ABG pH 7.480 (7.320-7.450) H 06/27/21 05:06 ABG pCO2 35.8 mm Hg 06/26/21 10:00 ABG pO2 125.4 mm Hg (80.0-90.0) H 06/26/21 10:00 ABG HCO3 25.3 mmol/L (20.0-26.0) 06/26/21 10:00 ABG O2 Saturation 98.0 (0-100) 06/27/21 05:06 Calcium 9.7 mg/dL (8.4-10.2) 06/29/21 06:00 Phosphorus 2.20 mg/dL (2.5-4.5) L D 06/29/21 05:13 Magnesium 2.00 mg/dL (1.7-2.3) 06/29/21 05:13 Urine Sodium 25 mmol/L 06/22/21 11:47 - Allied health notes Allied health notes reviewed: nursing Medications & Allergies - Medications Allergies/Adverse Reactions: Allergies No Known Allergies Allergy (Verified 06/26/21 16:15) Home Medications: Home Medications Medication Instructions Recorded Confirmed Last Taken Type Atenolol/Chlorthalidone [Tenoretic 1 tab PO DAILY 06/22/21 06/22/21 Unknown History 50-25] Clopidogrel [Plavix] 75 mg PO DAILY 06/22/21 06/22/21 Unknown History Glimepiride [Amaryl] 2 mg PO QAM 06/22/21 06/22/21 Unknown History Pioglitazone [Actos] 15 mg PO DAILY 06/22/21 06/22/21 Unknown History Pravastatin [Pravachol] 40 mg PO QHS 06/22/21 06/22/21 Unknown History lisinopriL [Zestril TAB] 5 mg PO DAILY 06/22/21 06/22/21 Unknown History Active Medications: Generic Name Dose Route Start Last Admin Trade Name Freq PRN Reason Stop Dose Admin Acetaminophen 650 mg 06/22/21 22:21 06/23/21 12:13 Acetaminophen 325 Mg Tab PO 650 mg Q4H PRN Administration Pain MILD(1-3)/Fever >100.5/NAVA Lipase/Protease/Amylase 1 each 06/26/21 11:31 Lipase 10,500/Protease 25,000/Amylase 43,750 (Units) Dr Castellanos FEEDTUBE PRN PRN For Clogged Feeding Tube Clopidogrel Bisulfate 75 mg 06/23/21 10:00 06/29/21 09:06 Clopidogrel 75 Mg Tab PO 75 mg DAILY JUDY Administration Docusate Sodium 100 mg 06/25/21 22:00 06/29/21 09:05 Docusate Sodium 100 Mg/10 Ml Oral Liqd PO 100 mg BID JUDY Administration Famotidine 20 mg 06/29/21 22:00 Famotidine 20 Mg Tab FEEDTUBE BID JUDY Hydrocortisone Sodium Succinate 60 mg 06/28/21 22:00 06/29/21 09:06 Hydrocortisone Sod Succ 100 Mg/2 Ml Vial IV 60 mg Q12HR JUDY Administration Heparin Sodium/Sodium Chloride 25,000 unit in 500 mls @ 26 mls/hr 06/25/21 13:00 06/29/21 07:44 Heparin/ 0.45% Nacl-25,000 Unit/500 Ml IV 1,100 units/hr TITR JUDY 22 mls/hr Titration Protocol 1,300 UNITS/HR NORepinephrine/NS 8 MG-250 ML 8 mg in 250 mls @ 3.75 mls/hr 06/25/21 23:00 06/27/21 17:07 Norepinephrine/Ns 8 Mg-250 Ml (Double Conc) IV 0 mcg/min TITRATE JUDY 0 mls/hr Titration Protocol 2 MCG/MIN Vasopressin 20 unit/ Sodium 101 mls @ 9.09 mls/hr 06/26/21 10:00 06/28/21 07:30 Chloride IV 0 units/min TITR JUDY 0 mls/hr Titration Protocol 0.03 UNITS/MIN Cefepime HCl 2 gm in 100 mls @ 200 mls/hr 06/26/21 10:00 06/29/21 10:08 Cefepime/Ns 2 Gm/100 Ml IV 06/30/21 22:29 200 mls/hr Q12H JUDY Administration Protocol Sodium Chloride 1,000 mls @ 100 mls/hr 06/26/21 11:00 06/29/21 05:10 Nacl 0.9% 1000 Ml IV 100 mls/hr DIRECT JUDY Administration Amiodarone HCl 360 mg/ 200 mls @ 33.333 mls/hr 06/28/21 15:00 06/29/21 10:07 Dextrose IV 1 mg/min DIRECT JUDY 33.333 mls/hr Administration Protocol 1 MG/MIN Amiodarone HCl 150 mg/ 100 mls @ 600 mls/hr 06/29/21 09:30 06/29/21 09:55 Dextrose IV 06/29/21 11:30 600 mls/hr ONCE@0930 JUDY Administration Insulin Glargine 20 units 06/28/21 22:00 06/28/21 21:32 Insulin Glargine 100 Units/Ml SUB-Q 20 units QHS [facility] Administration Insulin Human Lispro 0 unit 06/26/21 12:00 06/29/21 06:14 Insulin Lispro 100 Unit/Ml SUB-Q 3 unit Q6HR JUDY Administration Protocol Metoclopramide HCl 10 mg 06/22/21 22:21 Metoclopramide 10 Mg/2 Ml Inj IV Q6H PRN Nausea And Vomiting Metoprolol Tartrate 25 mg 06/28/21 22:00 06/29/21 09:05 Metoprolol Tartrate 25 Mg Tab PO 25 mg BID JUDY Administration Ondansetron HCl 4 mg 06/22/21 22:21 Ondansetron 4 Mg/2 Ml Inj IV Q8H PRN Nausea And Vomiting Pravastatin Sodium 40 mg 06/23/21 22:00 06/28/21 21:17 Pravastatin 40 Mg Tab PO 40 mg QHS JUDY Administration Simple Syrup 15 ml 06/26/21 11:31 Simple Syrup 15 Ml FEEDTUBE PRN PRN Hypoglycemia Simple Syrup 30 ml 06/26/21 11:31 Simple Syrup 15 Ml FEEDTUBE PRN PRN Hypoglycemia Sodium Bicarbonate 325 mg 06/26/21 11:31 Sodium Bicarbonate 325 Mg Tab FEEDTUBE PRN PRN For Clogged Feeding Tube Sodium Chloride 10 ml 06/23/21 10:00 06/29/21 09:06 Sodium Chloride 0.9% 10 Ml Flush Syringe IV 10 ml BID JUDY Administration Sodium Chloride 10 ml 06/22/21 22:21 Sodium Chloride 0.9% 10 Ml Flush Syringe IV PRN PRN LINE FLUSH
[2021-06-29] MEDS: HEPARIN/ 0.45% NACL DRIP 25,000 UNIT/500 ML BAG IV SCH (10:59)
--- NOTE | 2021-06-29 11:04 | Progress Note ---
Assessment and Plan Acute Encephalopathy Symptomatic Hyponatremia Acute Respiratory Failure PNA UTI Hypotension AF with RVR (new onset) Hypokalemia (resolved) Hypomagnesemia (resolved) H/o HTN DM2 H/o Tobacco Abuse rec: has normal lv function, finish off iv amio and increase lopressor 50mg tid for better rate control Subjective Date of service: 06/29/21 Principal diagnosis: AF w RVR Interval history: pt extubated and lethargic Objective Vital Signs Temp Pulse Pulse Resp BP Pulse Ox 06/29/21 10:26 126 H 28 H 100 06/29/21 10:01 124 H 27 H 134/52 93 06/29/21 09:45 157 H 27 H 153/79 94 06/29/21 09:38 93 06/29/21 09:31 150 H 25 H 144/76 96 06/29/21 09:15 163 H 35 H 152/81 95 06/29/21 09:05 171 H 152/81 06/29/21 09:01 166 H 23 152/81 97 06/29/21 08:45 123 H 23 105/69 82 L 06/29/21 08:36 97.6 F 06/29/21 08:31 130 H 24 105/69 97 06/29/21 08:30 93 06/29/21 08:15 92 H 14 147/89 95 06/29/21 08:01 121 H 13 147/89 95 06/29/21 08:00 121 H 95 06/29/21 07:45 88 16 127/65 93 06/29/21 07:30 85 19 123/56 94 06/29/21 07:15 87 17 128/60 94 06/29/21 07:00 80 20 124/52 92 06/29/21 06:45 82 21 119/58 92 06/29/21 06:30 83 13 115/61 92 06/29/21 06:15 78 15 117/57 97 06/29/21 06:01 84 19 136/63 99 06/29/21 05:45 73 0 L 118/55 95 06/29/21 05:30 73 20 101/48 98 06/29/21 05:15 78 20 130/58 98 06/29/21 05:00 71 20 120/54 99 06/29/21 04:45 71 0 L 105/50 100 06/29/21 04:30 72 8 L 115/53 100 06/29/21 04:15 73 9 L 110/52 99 06/29/21 04:00 86 75 13 136/64 99 06/29/21 03:45 73 20 115/55 99 06/29/21 03:38 97.8 F 06/29/21 03:30 80 8 L 127/61 98 06/29/21 03:15 86 20 126/56 98 06/29/21 03:05 85 0 L 126/56 99 06/29/21 03:01 82 20 126/56 96 06/29/21 02:45 96 H 20 158/69 99 06/29/21 02:30 102 H 16 168/82 99 06/29/21 02:15 94 H 23 141/67 99 06/29/21 02:00 99 H 21 156/67 99 06/29/21 01:45 101 H 17 141/61 100 06/29/21 01:30 80 20 141/61 99 06/29/21 01:15 84 21 150/63 99 06/29/21 01:00 92 H 14 161/68 99 06/29/21 00:51 106 H 06/29/21 00:45 87 20 144/60 98 06/29/21 00:30 100 H 12 156/71 98 06/29/21 00:15 92 H 15 150/61 97 06/29/21 00:00 98.2 F 100 H 101 H 21 172/71 97 06/28/21 23:45 104 H 15 163/71 97 06/28/21 23:30 107 H 15 168/79 97 06/28/21 23:15 94 H 20 164/71 98 06/28/21 23:10 101 H 0 L 157/71 98 06/28/21 23:00 94 H 16 157/71 98 06/28/21 22:45 88 20 140/61 98 06/28/21 22:30 99 H 21 169/70 98 06/28/21 22:16 106 H 15 144/68 98 06/28/21 22:15 102 H 15 169/70 98 06/28/21 22:00 88 20 148/67 97 06/28/21 21:46 92 H 17 124/55 98 06/28/21 21:45 91 H 17 148/67 98 06/28/21 21:30 101 H 12 125/62 97 06/28/21 21:16 87 22 135/67 98 06/28/21 21:15 82 21 125/62 98 06/28/21 21:00 108 H 20 142/66 98 06/28/21 20:46 113 H 21 162/71 06/28/21 20:45 107 H 21 142/66 06/28/21 20:30 109 H 20 189/77 06/28/21 20:16 126 H 24 142/59 96 06/28/21 20:15 126 H 24 189/77 96 06/28/21 20:00 98.7 F 105 H 99 H 20 156/80 96 06/28/21 19:46 101 H 11 L 132/63 96 06/28/21 19:45 101 H 14 156/80 96 06/28/21 19:30 101 H 17 131/59 97 06/28/21 19:16 99 H 15 140/67 98 06/28/21 19:15 87 15 131/59 97 06/28/21 19:01 102 H 10 L 140/67 98 06/28/21 19:00 103 H 13 162/69 99 06/28/21 18:59 91 H 16 162/69 100 06/28/21 18:45 96 H 18 162/69 99 06/28/21 18:30 103 H 20 155/72 97 06/28/21 18:15 97 H 15 147/68 98 06/28/21 18:01 108 H 20 162/74 97 06/28/21 17:45 90 18 140/63 100 06/28/21 17:30 92 H 12 141/63 100 06/28/21 17:15 104 H 23 137/69 99 06/28/21 17:00 87 20 134/64 100 06/28/21 16:45 86 19 135/63 100 06/28/21 16:30 78 20 126/55 100 06/28/21 16:15 100 H 17 117/68 100 06/28/21 16:01 85 137/60 100 06/28/21 16:00 98.0 F 100 H 81 22 118/68 99 06/28/21 15:45 107 H 21 116/64 99 06/28/21 15:31 85 20 137/60 100 06/28/21 15:15 80 20 104/56 100 06/28/21 15:00 92 H 20 116/59 99 06/28/21 14:50 126 H 189/77 100 06/28/21 14:45 135 H 23 175/78 96 06/28/21 14:31 124 H 46 H 174/77 97 06/28/21 14:15 102 H 35 H 133/58 98 06/28/21 14:00 100 H 22 136/60 98 06/28/21 13:45 104 H 24 126/59 97 06/28/21 13:30 112 H 21 146/65 96 06/28/21 13:15 111 H 33 H 139/66 97 06/28/21 13:00 119 H 23 146/71 96 06/28/21 12:45 122 H 42 H 120/69 95 06/28/21 12:30 90 20 122/62 97 06/28/21 12:15 100 H 21 117/61 96 06/28/21 12:01 105 H 25 H 135/69 96 06/28/21 12:00 120 H 76 24 99 06/28/21 11:46 98.4 F 06/28/21 11:45 110 H 37 H 118/55 96 06/28/21 11:30 101 H 19 118/55 94 06/28/21 11:15 125 H 39 H 129/66 93 06/28/21 11:09 131 H 24 141/63 97 - Physical Examination General: Other (lethargic ) HEENT: Positive: Normocephaly, Mucus Membranes Dry Neck: Positive: neck supple, trachea midline Cardiac: Positive: Tachycardia Lungs: Positive: Decreased Breath Sounds Neuro: Positive: Other (intubated) Abdomen: Positive: Soft Skin: Negative: Rash Musculoskeletal: No Fluid Collection Extremities: Present: lower extr. pulses, warm. Absent: edema - Labs and Meds Cardiac Enzymes 06/29/21 Range/Units 05:13 AST 12 (5-40) units/L CBC 06/29/21 06/29/21 Range/Units 05:13 06:00 WBC TNR 12.7 H RBC TNR 3.36 L Hgb TNR 10.0 L Hct TNR 30.5 Plt Count TNR 401 Lymph # (Auto) TNR 1.2 Bryan # (Auto) TNR 1.1 H Eos # (Auto) TNR 0.0 Baso # (Auto) TNR 0.1 Comprehensive Metabolic Panel 06/29/21 06/29/21 Range/Units 05:13 06:00 Sodium 133 L 134 L (137-145) mmol/L Potassium 4.2 3.8 (3.6-5.0) mmol/L Chloride 100.9 97.8 L (98-107) mmol/L Carbon Dioxide 26 29 (22-30) mmol/L BUN 34 H 33 H (7-17) mg/dL Creatinine 0.5 L 0.6 (0.6-1.2) mg/dL Glucose 186 H 189 H (65-100) mg/dL Calcium 8.8 9.7 (8.4-10.2) mg/dL AST 12 (5-40) units/L ALT 9 (7-56) units/L Alkaline Phosphatase 31 L (35-129) units/L Total Protein 3.3 L D (6.3-8.2) g/dL Albumin 1.9 L (3.9-5) g/dL - Imaging and Cardiology EKG: report reviewed, image reviewed Echo: report reviewed - Telemetry EKG Rhythm: Atrial Fibrillation - EKG Ventricular dysrhythmias: ventricular premature com Myocardial infarction: septal [place] (old age or ind, anterior [place] (old age or i - Allied health notes Allied health notes reviewed: nursing
[2021-06-29] MEDS ORDERED: METOPROLOL TARTRATE 25 MG TAB PO SCH (12:00)
--- NOTE | 2021-06-29 12:04 | Progress Note ---
Assessment and Plan 65 y/o female with symptomatic hyponatremia of unknown etiology 06/29/21: Will keep patient on continuous bipap at least until tomorrow morning. Try off Bipap again. If she fails will reach out to surgery as patient would likely need trach. Biggest question is why now (for CO2 retention.) Per cards echo is normal and when asked no prior history of RADHA. Will keep NPO so will nee to Continue Amio drip. Will place on scheduled lopressor since we cannot give oral meds at this time. 06/26/21: Transfer on hold. Follow up repeat ABG. Wean vasopressors for maps >65. Call renal in regards to Na since no real improvement with samsaca. Place [place]. If 3% is needed again, please give through central line. 06/25/21: Transferring to floor. Suggest remote tele. Wean FiO2 as tolerated. Will continue to follow. 06/24/21: Given Na greater than 120 and symptoms continue to improve, no objection to down grade to floor status. Suggest either tele floor or remote tele. Follow up renal recs. 1. Follow up renal recs 2. Yesterday placed patient on normal saline but now that 3% is being given will discontinue 3. q6 hour Chemistries given low chloride as well 4. Frequent neuro checks given rising na 5. Guarded prognosis. CCT 31minutes. Subjective Date of service: 06/29/21 Principal diagnosis: AF w RVR Interval history: Extubated this am, however within less than 2 hours, mentation worsened, was still awake but not following commands. Placed back on bipap and now she has improved. Objective Vital Signs - 12hr 06/29/21 06/29/21 06/29/21 00:00 00:15 00:30 Temperature 98.2 F Pulse Rate 100 H 92 H 100 H Pulse Rate [ 101 H From Monitor] Respiratory 21 15 12 Rate Blood Pressure 172/71 150/61 156/71 O2 Sat by Pulse 97 97 98 Oximetry 06/29/21 06/29/21 06/29/21 00:45 00:51 01:00 Temperature Pulse Rate 87 106 H 92 H Pulse Rate [ From Monitor] Respiratory 20 14 Rate Blood Pressure 144/60 161/68 O2 Sat by Pulse 98 99 Oximetry 06/29/21 06/29/21 06/29/21 01:15 01:30 01:45 Temperature Pulse Rate 84 80 101 H Pulse Rate [ From Monitor] Respiratory 21 20 17 Rate Blood Pressure 150/63 141/61 141/61 O2 Sat by Pulse 99 99 100 Oximetry 06/29/21 06/29/21 06/29/21 02:00 02:15 02:30 Temperature Pulse Rate 99 H 94 H 102 H Pulse Rate [ From Monitor] Respiratory 21 23 16 Rate Blood Pressure 156/67 141/67 168/82 O2 Sat by Pulse 99 99 99 Oximetry 06/29/21 06/29/21 06/29/21 02:45 03:01 03:05 Temperature Pulse Rate 96 H 82 85 Pulse Rate [ From Monitor] Respiratory 20 20 0 L Rate Blood Pressure 158/69 126/56 126/56 O2 Sat by Pulse 99 96 99 Oximetry 06/29/21 06/29/21 06/29/21 03:15 03:30 03:38 Temperature 97.8 F Pulse Rate 86 80 Pulse Rate [ From Monitor] Respiratory 20 8 L Rate Blood Pressure 126/56 127/61 O2 Sat by Pulse 98 98 Oximetry 06/29/21 06/29/21 06/29/21 03:45 04:00 04:15 Temperature Pulse Rate 73 86 73 Pulse Rate [ 75 From Monitor] Respiratory 20 13 9 L Rate Blood Pressure 115/55 136/64 110/52 O2 Sat by Pulse 99 99 99 Oximetry 06/29/21 06/29/21 06/29/21 04:30 04:45 05:00 Temperature Pulse Rate 72 71 71 Pulse Rate [ From Monitor] Respiratory 8 L 0 L 20 Rate Blood Pressure 115/53 105/50 120/54 O2 Sat by Pulse 100 100 99 Oximetry 06/29/21 06/29/21 06/29/21 05:15 05:30 05:45 Temperature Pulse Rate 78 73 73 Pulse Rate [ From Monitor] Respiratory 20 20 0 L Rate Blood Pressure 130/58 101/48 118/55 O2 Sat by Pulse 98 98 95 Oximetry 06/29/21 06/29/21 06/29/21 06:01 06:15 06:30 Temperature Pulse Rate 84 78 83 Pulse Rate [ From Monitor] Respiratory 19 15 13 Rate Blood Pressure 136/63 117/57 115/61 O2 Sat by Pulse 99 97 92 Oximetry 06/29/21 06/29/21 06/29/21 06:45 07:00 07:15 Temperature Pulse Rate 82 80 87 Pulse Rate [ From Monitor] Respiratory 21 20 17 Rate Blood Pressure 119/58 124/52 128/60 O2 Sat by Pulse 92 92 94 Oximetry 06/29/21 06/29/21 06/29/21 07:30 07:45 08:00 Temperature Pulse Rate 85 88 121 H Pulse Rate [ From Monitor] Respiratory 19 16 Rate Blood Pressure 123/56 127/65 O2 Sat by Pulse 94 93 95 Oximetry 06/29/21 06/29/21 06/29/21 08:01 08:15 08:30 Temperature Pulse Rate 121 H 92 H Pulse Rate [ From Monitor] Respiratory 13 14 Rate Blood Pressure 147/89 147/89 O2 Sat by Pulse 95 95 93 Oximetry 06/29/21 06/29/21 06/29/21 08:31 08:36 08:45 Temperature 97.6 F Pulse Rate 130 H 123 H Pulse Rate [ From Monitor] Respiratory 24 23 Rate Blood Pressure 105/69 105/69 O2 Sat by Pulse 97 82 L Oximetry 06/29/21 06/29/21 06/29/21 09:01 09:05 09:15 Temperature Pulse Rate 166 H 171 H 163 H Pulse Rate [ From Monitor] Respiratory 23 35 H Rate Blood Pressure 152/81 152/81 152/81 O2 Sat by Pulse 97 95 Oximetry 06/29/21 06/29/21 06/29/21 09:31 09:38 09:45 Temperature Pulse Rate 150 H 157 H Pulse Rate [ From Monitor] Respiratory 25 H 27 H Rate Blood Pressure 144/76 153/79 O2 Sat by Pulse 96 93 94 Oximetry 06/29/21 06/29/21 06/29/21 10:01 10:15 10:26 Temperature Pulse Rate 124 H 127 H 126 H Pulse Rate [ From Monitor] Respiratory 27 H 28 H 28 H Rate Blood Pressure 134/52 134/52 O2 Sat by Pulse 93 95 100 Oximetry 06/29/21 06/29/21 06/29/21 10:30 10:45 11:01 Temperature Pulse Rate 134 H 127 H 118 H Pulse Rate [ From Monitor] Respiratory 28 H 30 H 25 H Rate Blood Pressure 127/65 127/65 139/51 O2 Sat by Pulse 99 96 95 Oximetry Constitutional: other (critically ill on ventilator) Eyes: non-icteric Neck: supple Effort: normal Ascultation: Bilateral: other (coarse BS bilaterally) Cardiovascular: regular rate and rhythm (ir/ir, no mrg) Gastrointestinal: normoactive bowel sounds, soft, non-distended Integumentary: normal Extremities: no cyanosis, no edema, pink and warm Neurologic: normal mental status, non-focal exam, pupils equal and round, CN II- XII normal Psychiatric: mood appropriate, affect normal CBC and BMP: 06/29/21 06:00 06/29/21 06:00 ABG, PT/INR, D-dimer: ABG ABG pH 7.480 (7.320-7.450) H 06/27/21 05:06 POC ABG pCO2 38.0 mmHg (32.0-48.0) 06/27/21 05:06 ABG pCO2 35.8 mm Hg 06/26/21 10:00 POC ABG pO2 93.6 mmHg (83-108) 06/27/21 05:06 ABG pO2 125.4 mm Hg (80.0-90.0) H 06/26/21 10:00 POC ABG HCO3 27.7 06/27/21 05:06 ABG O2 Saturation 98.0 (0-100) 06/27/21 05:06 PT/INR, D-dimer PT 12.6 Sec. (12.2-14.9) 06/25/21 13:42 INR 0.85 (0.87-1.13) L 06/25/21 13:42 Abnormal lab findings: Abnormal Labs 06/22/21 06/22/21 06/22/21 07:58 07:58 07:58 WBC 13.0 H RBC Hgb MCHC 35 H Lymph % (Auto) 6.3 L Avery % (Auto) 7.4 H Lymph # (Auto) 0.8 L Avery # (Auto) 1.0 H Seg Neutrophils % 85.5 H Seg Neuts % (Manual) Lymphocytes % (Manual) Seg Neutrophils # 11.1 H Seg Neutrophils # Man Lymphocytes # (Manual) PT 11.8 L INR 0.78 L Heparin Anti-Xa Level ABG pH POC ABG pCO2 ABG pO2 ABG HCO3 ABG O2 Saturation ABG Base Excess ABG Hemoglobin ABG Oxyhemoglobin ABG Sodium ABG Chloride ABG Glucose Sodium 107 L* Potassium 2.7 L* Chloride 60.0 L Carbon Dioxide 32 H BUN Creatinine 0.5 L Glucose 177 H POC Glucose Hemoglobin A1c Lactic Acid Uric Acid Calcium Phosphorus Magnesium Alkaline Phosphatase Lactate Dehydrogenase C-Reactive Protein Total Protein Albumin Arterial Blood Glucose Urine WBC (Auto) 06/22/21 06/22/21 06/22/21 08:56 08:56 08:56 WBC RBC Hgb MCHC Lymph % (Auto) Avery % (Auto) Lymph # (Auto) Avery # (Auto) Seg Neutrophils % Seg Neuts % (Manual) Lymphocytes % (Manual) Seg Neutrophils # Seg Neutrophils # Man Lymphocytes # (Manual) PT INR Heparin Anti-Xa Level ABG pH POC ABG pCO2 ABG pO2 ABG HCO3 ABG O2 Saturation ABG Base Excess ABG Hemoglobin ABG Oxyhemoglobin ABG Sodium ABG Chloride ABG Glucose Sodium 104 L* Potassium 3.2 L Chloride 60.0 L Carbon Dioxide BUN Creatinine 0.4 L Glucose 179 H 181 H POC Glucose Hemoglobin A1c Lactic Acid 2.10 H* Uric Acid Calcium Phosphorus Magnesium Alkaline Phosphatase Lactate Dehydrogenase 220 H C-Reactive Protein 5.40 H Total Protein Albumin Arterial Blood Glucose Urine WBC (Auto) 06/22/21 06/22/21 06/22/21 11:47 14:20 18:19 WBC RBC Hgb MCHC Lymph % (Auto) Avery % (Auto) Lymph # (Auto) Avery # (Auto) Seg Neutrophils % Seg Neuts % (Manual) Lymphocytes % (Manual) Seg Neutrophils # Seg Neutrophils # Man Lymphocytes # (Manual) PT INR Heparin Anti-Xa Level ABG pH POC ABG pCO2 ABG pO2 ABG HCO3 ABG O2 Saturation ABG Base Excess ABG Hemoglobin ABG Oxyhemoglobin ABG Sodium ABG Chloride ABG Glucose Sodium 112 L* D 112 L* Potassium 2.7 L* 2.7 L* Chloride 65.2 L 65.8 L Carbon Dioxide 32 H 31 H BUN Creatinine 0.4 L 0.3 L Glucose 119 H POC Glucose Hemoglobin A1c Lactic Acid Uric Acid Calcium Phosphorus Magnesium Alkaline Phosphatase Lactate Dehydrogenase C-Reactive Protein Total Protein Albumin Arterial Blood Glucose Urine WBC (Auto) 11.0 H 06/23/21 06/23/21 06/23/21 05:29 05:29 05:29 WBC 12.4 H RBC Hgb MCHC Lymph % (Auto) 5.8 L Avery % (Auto) Lymph # (Auto) 0.7 L Avery # (Auto) 0.9 H Seg Neutrophils % 87.1 H Seg Neuts % (Manual) Lymphocytes % (Manual) Seg Neutrophils # 10.8 H Seg Neutrophils # Man Lymphocytes # (Manual) PT INR Heparin Anti-Xa Level ABG pH POC ABG pCO2 ABG pO2 ABG HCO3 ABG O2 Saturation ABG Base Excess ABG Hemoglobin ABG Oxyhemoglobin ABG Sodium ABG Chloride ABG Glucose Sodium 112 L* Potassium 2.6 L* Chloride 67.5 L Carbon Dioxide 33 H BUN Creatinine 0.4 L Glucose POC Glucose Hemoglobin A1c 6.6 H Lactic Acid Uric Acid 3.2 L Calcium Phosphorus Magnesium Alkaline Phosphatase Lactate Dehydrogenase C-Reactive Protein Total Protein Albumin Arterial Blood Glucose Urine WBC (Auto) 06/23/21 06/23/21 06/23/21 05:29 12:11 17:43 WBC RBC Hgb MCHC Lymph % (Auto) Avery % (Auto) Lymph # (Auto) Avery # (Auto) Seg Neutrophils % Seg Neuts % (Manual) Lymphocytes % (Manual) Seg Neutrophils # Seg Neutrophils # Man Lymphocytes # (Manual) PT INR Heparin Anti-Xa Level ABG pH POC ABG pCO2 ABG pO2 ABG HCO3 ABG O2 Saturation ABG Base Excess ABG Hemoglobin ABG Oxyhemoglobin ABG Sodium ABG Chloride ABG Glucose Sodium 113 L* 117 L* Potassium 2.6 L* Chloride 69.7 L 74.9 L Carbon Dioxide BUN Creatinine 0.4 L 0.3 L Glucose 106 H 125 H POC Glucose Hemoglobin A1c Lactic Acid Uric Acid Calcium Phosphorus Magnesium 1.50 L Alkaline Phosphatase Lactate Dehydrogenase C-Reactive Protein Total Protein Albumin Arterial Blood Glucose Urine WBC (Auto) 06/24/21 06/24/21 06/24/21 00:43 00:45 05:33 WBC RBC Hgb MCHC Lymph % (Auto) Avery % (Auto) Lymph # (Auto) Avery # (Auto) Seg Neutrophils % Seg Neuts % (Manual) Lymphocytes % (Manual) Seg Neutrophils # Seg Neutrophils # Man Lymphocytes # (Manual) PT INR Heparin Anti-Xa Level ABG pH POC ABG pCO2 ABG pO2 ABG HCO3 ABG O2 Saturation ABG Base Excess ABG Hemoglobin ABG Oxyhemoglobin ABG Sodium ABG Chloride ABG Glucose Sodium 119 L* 122 L Potassium Chloride 79.6 L 80.2 L Carbon Dioxide 32 H 31 H BUN Creatinine 0.4 L 0.3 L Glucose 116 H 143 H POC Glucose 117 H Hemoglobin A1c Lactic Acid Uric Acid Calcium Phosphorus Magnesium Alkaline Phosphatase Lactate Dehydrogenase C-Reactive Protein Total Protein Albumin Arterial Blood Glucose Urine WBC (Auto) 06/24/21 06/24/21 06/24/21 05:33 06:11 16:25 WBC 12.0 H RBC Hgb MCHC Lymph % (Auto) Avery % (Auto) Lymph # (Auto) Avery # (Auto) Seg Neutrophils % Seg Neuts % (Manual) 95.0 H Lymphocytes % (Manual) 2.0 L Seg Neutrophils # Seg Neutrophils # Man 11.4 H Lymphocytes # (Manual) 0.2 L PT INR Heparin Anti-Xa Level ABG pH POC ABG pCO2 ABG pO2 ABG HCO3 ABG O2 Saturation ABG Base Excess ABG Hemoglobin ABG Oxyhemoglobin ABG Sodium ABG Chloride ABG Glucose Sodium 122 L Potassium Chloride 78.9 L Carbon Dioxide 32 H BUN Creatinine 0.5 L D Glucose 141 H POC Glucose 141 H Hemoglobin A1c Lactic Acid Uric Acid Calcium Phosphorus Magnesium Alkaline Phosphatase Lactate Dehydrogenase C-Reactive Protein Total Protein Albumin Arterial Blood Glucose Urine WBC (Auto) 06/24/21 06/24/21 06/25/21 18:16 23:49 00:18 WBC RBC Hgb MCHC Lymph % (Auto) Avery % (Auto) Lymph # (Auto) Avery # (Auto) Seg Neutrophils % Seg Neuts % (Manual) Lymphocytes % (Manual) Seg Neutrophils # Seg Neutrophils # Man Lymphocytes # (Manual) PT INR Heparin Anti-Xa Level ABG pH POC ABG pCO2 ABG pO2 ABG HCO3 ABG O2 Saturation ABG Base Excess ABG Hemoglobin ABG Oxyhemoglobin ABG Sodium ABG Chloride ABG Glucose Sodium 123 L 122 L Potassium Chloride Carbon Dioxide BUN Creatinine Glucose POC Glucose 162 H Hemoglobin A1c Lactic Acid Uric Acid Calcium Phosphorus Magnesium Alkaline Phosphatase Lactate Dehydrogenase C-Reactive Protein Total Protein Albumin Arterial Blood Glucose Urine WBC (Auto) 06/25/21 06/25/21 06/25/21 03:06 06:15 10:19 WBC RBC Hgb MCHC Lymph % (Auto) Avery % (Auto) Lymph # (Auto) Avery # (Auto) Seg Neutrophils % Seg Neuts % (Manual) Lymphocytes % (Manual) Seg Neutrophils # Seg Neutrophils # Man Lymphocytes # (Manual) PT INR Heparin Anti-Xa Level ABG pH POC ABG pCO2 ABG pO2 ABG HCO3 ABG O2 Saturation ABG Base Excess ABG Hemoglobin ABG Oxyhemoglobin ABG Sodium ABG Chloride ABG Glucose Sodium Potassium Chloride Carbon Dioxide BUN Creatinine Glucose POC Glucose 151 H 149 H 152 H Hemoglobin A1c Lactic Acid Uric Acid Calcium Phosphorus Magnesium Alkaline Phosphatase Lactate Dehydrogenase C-Reactive Protein Total Protein Albumin Arterial Blood Glucose Urine WBC (Auto) 06/25/21 06/25/21 06/25/21 13:42 13:42 15:13 WBC RBC Hgb MCHC Lymph % (Auto) Avery % (Auto) Lymph # (Auto) Avery # (Auto) Seg Neutrophils % Seg Neuts % (Manual) Lymphocytes % (Manual) Seg Neutrophils # Seg Neutrophils # Man Lymphocytes # (Manual) PT INR 0.85 L Heparin Anti-Xa Level < 0.10 L ABG pH POC ABG pCO2 ABG pO2 ABG HCO3 ABG O2 Saturation ABG Base Excess ABG Hemoglobin ABG Oxyhemoglobin ABG Sodium ABG Chloride ABG Glucose Sodium 123 L Potassium Chloride 78.5 L Carbon Dioxide 32 H BUN 19 H Creatinine Glucose 193 H POC Glucose Hemoglobin A1c Lactic Acid Uric Acid Calcium Phosphorus Magnesium Alkaline Phosphatase Lactate Dehydrogenase C-Reactive Protein Total Protein Albumin Arterial Blood Glucose Urine WBC (Auto) 06/25/21 06/25/21 06/25/21 15:21 19:49 21:21 WBC RBC Hgb MCHC Lymph % (Auto) Avery % (Auto) Lymph # (Auto) Avery # (Auto) Seg Neutrophils % Seg Neuts % (Manual) Lymphocytes % (Manual) Seg Neutrophils # Seg Neutrophils # Man Lymphocytes # (Manual) PT INR Heparin Anti-Xa Level ABG pH 7.086 L POC ABG pCO2 104.9 H ABG pO2 ABG HCO3 ABG O2 Saturation ABG Base Excess ABG Hemoglobin ABG Oxyhemoglobin 92.4 L ABG Sodium 123.4 L ABG Chloride 81.0 L ABG Glucose 225 H Sodium Potassium Chloride Carbon Dioxide BUN Creatinine Glucose POC Glucose 221 H 194 H Hemoglobin A1c Lactic Acid Uric Acid Calcium Phosphorus Magnesium Alkaline Phosphatase Lactate Dehydrogenase C-Reactive Protein Total Protein Albumin Arterial Blood Glucose 225 H Urine WBC (Auto) 06/25/21 06/25/21 06/26/21 22:55 22:55 00:35 WBC 14.8 H RBC Hgb MCHC Lymph % (Auto) Avery % (Auto) Lymph # (Auto) Avery # (Auto) Seg Neutrophils % Seg Neuts % (Manual) 91.0 H Lymphocytes % (Manual) 6.0 L Seg Neutrophils # Seg Neutrophils # Man 13.5 H Lymphocytes # (Manual) 0.9 L PT INR Heparin Anti-Xa Level ABG pH POC ABG pCO2 ABG pO2 439.6 H ABG HCO3 30.0 H ABG O2 Saturation 99.6 H ABG Base Excess 3.3 H ABG Hemoglobin ABG Oxyhemoglobin ABG Sodium ABG Chloride ABG Glucose Sodium 124 L Potassium Chloride 82.9 L Carbon Dioxide BUN 22 H Creatinine Glucose 226 H POC Glucose Hemoglobin A1c Lactic Acid Uric Acid Calcium 8.2 L Phosphorus 4.70 H Magnesium Alkaline Phosphatase Lactate Dehydrogenase C-Reactive Protein Total Protein Albumin Arterial Blood Glucose Urine WBC (Auto) 06/26/21 06/26/21 06/26/21 02:58 04:32 05:53 WBC RBC Hgb MCHC Lymph % (Auto) Avery % (Auto) Lymph # (Auto) Avery # (Auto) Seg Neutrophils % Seg Neuts % (Manual) Lymphocytes % (Manual) Seg Neutrophils # Seg Neutrophils # Man Lymphocytes # (Manual) PT INR Heparin Anti-Xa Level ABG pH POC ABG pCO2 ABG pO2 ABG HCO3 ABG O2 Saturation ABG Base Excess ABG Hemoglobin ABG Oxyhemoglobin ABG Sodium ABG Chloride ABG Glucose Sodium 123 L Potassium Chloride 79.2 L Carbon Dioxide BUN 26 H Creatinine Glucose 202 H POC Glucose 227 H 187 H Hemoglobin A1c Lactic Acid Uric Acid Calcium Phosphorus Magnesium Alkaline Phosphatase Lactate Dehydrogenase C-Reactive Protein Total Protein 5.9 L Albumin 2.8 L Arterial Blood Glucose Urine WBC (Auto) 06/26/21 06/26/21 06/26/21 09:14 09:48 10:00 WBC RBC Hgb MCHC Lymph % (Auto) Avery % (Auto) Lymph # (Auto) Avery # (Auto) Seg Neutrophils % Seg Neuts % (Manual) Lymphocytes % (Manual) Seg Neutrophils # Seg Neutrophils # Man Lymphocytes # (Manual) PT INR Heparin Anti-Xa Level ABG pH 7.467 H POC ABG pCO2 ABG pO2 125.4 H ABG HCO3 ABG O2 Saturation ABG Base Excess ABG Hemoglobin ABG Oxyhemoglobin ABG Sodium ABG Chloride ABG Glucose Sodium Potassium Chloride Carbon Dioxide BUN Creatinine Glucose POC Glucose 194 H Hemoglobin A1c Lactic Acid Uric Acid Calcium Phosphorus Magnesium Alkaline Phosphatase Lactate Dehydrogenase C-Reactive Protein Total Protein Albumin Arterial Blood Glucose Urine WBC (Auto) 69.0 H 06/26/21 06/26/21 06/26/21 16:06 22:34 23:32 WBC RBC Hgb MCHC Lymph % (Auto) Avery % (Auto) Lymph # (Auto) Avery # (Auto) Seg Neutrophils % Seg Neuts % (Manual) Lymphocytes % (Manual) Seg Neutrophils # Seg Neutrophils # Man Lymphocytes # (Manual) PT INR Heparin Anti-Xa Level ABG pH POC ABG pCO2 ABG pO2 ABG HCO3 ABG O2 Saturation ABG Base Excess ABG Hemoglobin ABG Oxyhemoglobin ABG Sodium ABG Chloride ABG Glucose Sodium 128 L 126 L Potassium Chloride 88.6 L 89.2 L Carbon Dioxide BUN 32 H 34 H Creatinine Glucose 161 H 257 H POC Glucose 231 H Hemoglobin A1c Lactic Acid Uric Acid Calcium Phosphorus Magnesium Alkaline Phosphatase Lactate Dehydrogenase C-Reactive Protein Total Protein Albumin Arterial Blood Glucose Urine WBC (Auto) 06/27/21 06/27/21 06/27/21 05:06 06:00 06:00 WBC 12.0 H RBC Hgb MCHC Lymph % (Auto) Avery % (Auto) Lymph # (Auto) Avery # (Auto) Seg Neutrophils % Seg Neuts % (Manual) Lymphocytes % (Manual) Seg Neutrophils # Seg Neutrophils # Man Lymphocytes # (Manual) PT INR Heparin Anti-Xa Level ABG pH 7.480 H POC ABG pCO2 ABG pO2 ABG HCO3 ABG O2 Saturation ABG Base Excess ABG Hemoglobin 11.9 L ABG Oxyhemoglobin ABG Sodium 123.5 L ABG Chloride 91.0 L ABG Glucose 328 H Sodium 128 L Potassium Chloride 91.4 L Carbon Dioxide BUN 36 H Creatinine Glucose 346 H POC Glucose Hemoglobin A1c Lactic Acid Uric Acid Calcium Phosphorus Magnesium Alkaline Phosphatase Lactate Dehydrogenase C-Reactive Protein Total Protein Albumin Arterial Blood Glucose 328 H Urine WBC (Auto) 06/27/21 06/27/21 06/27/21 11:41 17:06 23:36 WBC RBC Hgb MCHC Lymph % (Auto) Avery % (Auto) Lymph # (Auto) Avery # (Auto) Seg Neutrophils % Seg Neuts % (Manual) Lymphocytes % (Manual) Seg Neutrophils # Seg Neutrophils # Man Lymphocytes # (Manual) PT INR Heparin Anti-Xa Level ABG pH POC ABG pCO2 ABG pO2 ABG HCO3 ABG O2 Saturation ABG Base Excess ABG Hemoglobin ABG Oxyhemoglobin ABG Sodium ABG Chloride ABG Glucose Sodium Potassium Chloride Carbon Dioxide BUN Creatinine Glucose POC Glucose 259 H 301 H 215 H Hemoglobin A1c Lactic Acid Uric Acid Calcium Phosphorus Magnesium Alkaline Phosphatase Lactate Dehydrogenase C-Reactive Protein Total Protein Albumin Arterial Blood Glucose Urine WBC (Auto) 06/28/21 06/28/21 06/28/21 03:00 03:00 03:00 WBC 14.9 H RBC 3.46 L Hgb MCHC Lymph % (Auto) 2.8 L Avery % (Auto) 7.5 H Lymph # (Auto) 0.4 L Avery # (Auto) 1.1 H Seg Neutrophils % 89.6 H Seg Neuts % (Manual) Lymphocytes % (Manual) Seg Neutrophils # 13.4 H Seg Neutrophils # Man Lymphocytes # (Manual) PT INR Heparin Anti-Xa Level 0.27 L ABG pH POC ABG pCO2 ABG pO2 ABG HCO3 ABG O2 Saturation ABG Base Excess ABG Hemoglobin ABG Oxyhemoglobin ABG Sodium ABG Chloride ABG Glucose Sodium 134 L Potassium Chloride 91.1 L Carbon Dioxide BUN 35 H Creatinine Glucose 235 H POC Glucose Hemoglobin A1c Lactic Acid Uric Acid Calcium Phosphorus 1.10 L Magnesium Alkaline Phosphatase Lactate Dehydrogenase C-Reactive Protein Total Protein Albumin Arterial Blood Glucose Urine WBC (Auto) 06/28/21 06/28/21 06/28/21 05:13 16:53 23:32 WBC RBC Hgb MCHC Lymph % (Auto) Avery % (Auto) Lymph # (Auto) Avery # (Auto) Seg Neutrophils % Seg Neuts % (Manual) Lymphocytes % (Manual) Seg Neutrophils # Seg Neutrophils # Man Lymphocytes # (Manual) PT INR Heparin Anti-Xa Level ABG pH POC ABG pCO2 ABG pO2 ABG HCO3 ABG O2 Saturation ABG Base Excess ABG Hemoglobin ABG Oxyhemoglobin ABG Sodium ABG Chloride ABG Glucose Sodium Potassium Chloride Carbon Dioxide BUN Creatinine Glucose POC Glucose 241 H 213 H 236 H Hemoglobin A1c Lactic Acid Uric Acid Calcium Phosphorus Magnesium Alkaline Phosphatase Lactate Dehydrogenase C-Reactive Protein Total Protein Albumin Arterial Blood Glucose Urine WBC (Auto) 06/29/21 06/29/21 06/29/21 05:13 05:13 06:00 WBC 12.7 H RBC 3.36 L Hgb 10.0 L MCHC Lymph % (Auto) 9.5 L Avery % (Auto) 8.6 H Lymph # (Auto) Avery # (Auto) 1.1 H Seg Neutrophils % 80.4 H Seg Neuts % (Manual) Lymphocytes % (Manual) Seg Neutrophils # 10.2 H Seg Neutrophils # Man Lymphocytes # (Manual) PT INR Heparin Anti-Xa Level 0.13 L ABG pH POC ABG pCO2 ABG pO2 ABG HCO3 ABG O2 Saturation ABG Base Excess ABG Hemoglobin ABG Oxyhemoglobin ABG Sodium ABG Chloride ABG Glucose Sodium 133 L Potassium Chloride Carbon Dioxide BUN 34 H Creatinine 0.5 L Glucose 186 H POC Glucose Hemoglobin A1c Lactic Acid Uric Acid Calcium Phosphorus 2.20 L D Magnesium Alkaline Phosphatase 31 L Lactate Dehydrogenase C-Reactive Protein Total Protein 3.3 L D Albumin 1.9 L Arterial Blood Glucose Urine WBC (Auto) 06/29/21 06/29/21 06:00 06:00 WBC RBC Hgb MCHC Lymph % (Auto) Avery % (Auto) Lymph # (Auto) Avery # (Auto) Seg Neutrophils % Seg Neuts % (Manual) Lymphocytes % (Manual) Seg Neutrophils # Seg Neutrophils # Man Lymphocytes # (Manual) PT INR Heparin Anti-Xa Level 0.22 L ABG pH POC ABG pCO2 ABG pO2 ABG HCO3 ABG O2 Saturation ABG Base Excess ABG Hemoglobin ABG Oxyhemoglobin ABG Sodium ABG Chloride ABG Glucose Sodium 134 L Potassium Chloride 97.8 L Carbon Dioxide BUN 33 H Creatinine Glucose 189 H POC Glucose Hemoglobin A1c Lactic Acid Uric Acid Calcium Phosphorus Magnesium Alkaline Phosphatase Lactate Dehydrogenase C-Reactive Protein Total Protein Albumin Arterial Blood Glucose Urine WBC (Auto) Allied health notes reviewed: nursing
[2021-06-29] MEDS: METOPROLOL TARTRATE 5 MG/5 ML INJ IV SCH ×2 (12:46→18:20)
--- NOTE | 2021-06-29 14:23 | Progress Note ---
Assessment and Plan Assessment and plan: This is a 55-year-old female with HTN, tobacco abuse and diabetes mellitus admitted for severe hyponatremia, hypochloremia and hypokalemia, acute proximal respiratory failure, mini seizure-like activity and urinary tract infection. Hospital Course to Date This is a 55-year-old female with hypertension, atrial fibrillation, tobacco abuse and diabetes mellitus who presents the emergency department on 06/22 for severe weakness, altered mental status and witnessed seizure-like activity. CXR showed left basilar airspace opacity and work-up in the emergency department revealed severe hyponatremia, hypokalemia, severe hypochloremia, metabolic alkalosis acute hypoxic respiratory failure, witnessed seizure activity and urinary tract infection. Patient was admitted to the hospital service with consults to nephrology and [facility]. 06/23/2021- Patient symptomatically better, Sodium is 117 06/24: Sodium slightly better however we will still admit to ICU, no acute vents overnight 06/25: Patient noted to be in atrial fibrillation upon transfer to ICU and stat ECG revealed atrial fibrillation. Cardiology was consulted. Patient restarted on home beta-jeimy and was eventually changed to amiodarone. She was started on heparin drip. Patient will be transferred to the telemetry floor. 06/26: Yesterday evening transfer was held and ABG read which showed hypercapnia and patient was intubated. Patient became bradycardic and hypotensive and was started on Levophed. This morning patient Levophed was in the high 20s therefore vasopressin was added. After addition of vasopressin and was able to wean Levophed. Stress dose steroids started due to labile pressures. Broad- spectrum antibiotics started. Patient started on albumin and normal saline per nephrology. Cotisol ordered 06/27/2021: nephro started MIVF and does not see any indication fro hypertonic at this time. SR noted this morning. Remains on vasopression. Likely PSV in the AM. increase in insulin /2: PSV for couple hours then noted to be in afib with rvr. amio gtt restarted but patient converted back to SR after switched back to AC mode. stopped vanco today. off vasopressors. 06/29: Patient s/p extubation this am on 5L NC SPO2 at 100%. However, patient found alerted and unrousable post extubation, probably related to hypercapnia. Orders placed for stat ABG, and place patient on Bipap, d/w CCM. Assessment and Plan #Neuro: Acute metabolic encephalopathy -Reported seizure-like activity and admitted by family however this could be related to her severe hyponatremia -No witnessed seizure activity after admit -S/p 3% saline -S/p extubation this am, was AAO preintubation -2Hrs post extubation, patient was noted Altered and unrousable, most likely related to hypercapnia -Avoid delirium -Reorientation as needed -Maintain sleep-wake cycle -As needed analgesia #Cardio:Atrial fibrillation #H/o HTN -Patient remains in Afib on the monitor, rate control this am -Cardiology consulted, appreciate recommendations -On Amiodarone drip -06/25 Echocardiogram shows Normal bivalve function, LVEF 60 to 65% -No longer on pressors, stress dose steroids D/Eleazar -Continue blood pressure monitor per protocol -Maintain MAP above 65 -hold home antihtn regimen on hold -Continue Plavix and AC-Heparin gtt #Respiratory: Acute hypercarbic respiratory failure -Intubated on 06/25 -S/p extubation this am 06/29 -Patient found altered and unrousable 2hrs post extubation -On 5L NC SPO2 at 100%, most likely related to hypercapnia -Stat ABG ordered -Plan to place patient on Bipap -CCM consulted, appreciate recommendations -Aspiration precaution HOB above 30 -PRN ABG and CXR per CCM -Continue O2 supplementation and SPO2 monitoring for SPO2 goal above 95% #GI: NPO -Keep patient NPO while on continuous Bipap -Continue IVF for now -Continue BR -Continue PPI-Pepcid #Severe hyponatremia-improving -Patient presented with critically low Na, as low as 104 -Probably related to dehydration vs infectious process -Patient was also on diuretic at home -S/p 3% saline and Samsca -Now on Continue IV NS -Scr improving 134 this am -Nephrology consulted, appreciate recommendations -Strict intake and output -Avoid nephrotoxic medications; Renally dose medications - Martines in place - Monitor and replace electrolytes as needed -Trend BMP #ID:Urinary tract infection #Community-acquired pneumonia #Leukocytosis -Initial CXR with left basilar airspace opacity, possible atelectasis vs pneumonia -UA consistent with UTI, urine culture negative -Blood cultures NGTD -Leukocytosis as high as 14.9, WBcs downtrending -Patient remains afebrile -Continue currentl IV [id number] -Continue to F/U on B.cult -Daily CBC monitor -Consider ID consult if febrile or/and if leukocytosis worsen #Endo:Type 2 Diabetes -Hemoglobin A1c 6.6 -Continue SSI Q6hrs while NPO -Continue lantus QHs -Avoid hypoglycemia #DVT Prophylaxis -Continue AC- Heparin gtt -SCDs to bilateral lower extremities while in bed The high probability of a clinically significant, sudden or life threatening deterioration of the [Respiratory,Renal,GI] system(s) required my full and direct attention, intervention and personal management. The aggregate critical care time was [60] minutes. This time is in addition to time spent performing reported procedures but includes the following: [x] Data Review and interpretation [x] Patient assessment and monitoring of vital signs [x] Documentation [x] Medication orders and management Disposition Plan: ICU Total Time Spent with Patient (Minutes): 60 History Interval history: Patient seen and examined at the bedside. Patient is s/p extubation, appears altered and unarousable, per RN patient was AAO and following commands prior to extubation. Patient is on 5L NC SPO2 at 100% Hospitalist Physical - Constitutional Vitals: Temp Pulse Resp BP Pulse Ox 97.6 F 122 H 25 H 167/77 94 06/29/21 08:36 06/29/21 12:46 06/29/21 12:01 06/29/21 12:46 06/29/21 12:01 General appearance: Present: no acute distress, other (Altered and unarousable) - EENT Eyes: Present: PERRL - Respiratory Respiratory effort: normal Respiratory: bilateral: diminished - Cardiovascular Rhythm: regular Heart Sounds: Present: S1 & S2 - Extremities Extremities: no ischemia, pulses intact, pulses symmetrical Extremity abnormal: edema - Peripheral Assessment Generalized Edema Type: Non-pitting Edema Degree: 1+ Capillary Refill: < 3 seconds Skin Temperature: Warm Peripheral Pulses: within normal limits - Abdominal General gastrointestinal: soft, non-tender, normal bowel sounds - Integumentary Integumentary: Present: warm, dry - Psychiatric Psychiatric: other (Altered and unarousable) - Neurologic Neurologic: other (Altered and unarousable) - Allied Health Allied health notes reviewed: nursing HEART Score - HEART Score Troponin: Troponin T < 0.010 ng/mL (0.00-0.029) 06/22/21 07:58 Results - Labs CBC & Chem 7: 06/29/21 06:00 06/29/21 06:00 Labs: Laboratory Last Values WBC 12.7 K/mm3 (4.5-11.0) H 06/29/21 06:00 RBC 3.36 M/mm3 (3.65-5.03) L 06/29/21 06:00 Hgb 10.0 gm/dl (10.1-14.3) L 06/29/21 06:00 Hct 30.5 % (30.3-42.9) 06/29/21 06:00 MCV 91 fl (79-97) 06/29/21 06:00 MCH 30 pg (28-32) 06/29/21 06:00 MCHC 33 % (30-34) 06/29/21 06:00 RDW 14.1 % (13.2-15.2) 06/29/21 06:00 Plt Count 401 K/mm3 (140-440) 06/29/21 06:00 Lymph % (Auto) 9.5 % (13.4-35.0) L 06/29/21 06:00 [place] % (Auto) 8.6 % (0.0-7.3) H 06/29/21 06:00 Eos % (Auto) 0.3 % (0.0-4.3) 06/29/21 06:00 Baso % (Auto) 1.2 % (0.0-1.8) 06/29/21 06:00 Lymph # (Auto) 1.2 K/mm3 (1.2-5.4) 06/29/21 06:00 [place] # (Auto) 1.1 K/mm3 (0.0-0.8) H 06/29/21 06:00 Eos # (Auto) 0.0 K/mm3 (0.0-0.4) 06/29/21 06:00 Baso # (Auto) 0.1 K/mm3 (0.0-0.1) 06/29/21 06:00 Add Manual Diff Complete 06/25/21 22:55 Total Counted 100 06/25/21 22:55 Seg Neutrophils % 80.4 % (40.0-70.0) H 06/29/21 06:00 Seg Neuts % (Manual) 91.0 % (40.0-70.0) H 06/25/21 22:55 Lymphocytes % (Manual) 6.0 % (13.4-35.0) L 06/25/21 22:55 Monocytes % (Manual) 3.0 % (0.0-7.3) 06/25/21 22:55 Metamyelocytes % 1.0 % 06/24/21 05:33 Nucleated RBC % Not Reportable 06/25/21 22:55 Seg Neutrophils # 10.2 K/mm3 (1.8-7.7) H 06/29/21 06:00 Seg Neutrophils # Man 13.5 K/mm3 (1.8-7.7) H 06/25/21 22:55 Band Neutrophils # 0.0 K/mm3 06/25/21 22:55 Lymphocytes # (Manual) 0.9 K/mm3 (1.2-5.4) L 06/25/21 22:55 Abs React Lymphs (Man) 0.0 K/mm3 06/25/21 22:55 Monocytes # (Manual) 0.4 K/mm3 (0.0-0.8) 06/25/21 22:55 Eosinophils # (Manual) 0.0 K/mm3 (0.0-0.4) 06/25/21 22:55 Basophils # (Manual) 0.0 K/mm3 (0.0-0.1) 06/25/21 22:55 Metamyelocytes # 0.0 K/mm3 06/25/21 22:55 Myelocytes # 0.0 K/mm3 06/25/21 22:55 Promyelocytes # 0.0 K/mm3 06/25/21 22:55 Blast Cells # 0.0 K/mm3 06/25/21 22:55 WBC Morphology Not Reportable 06/25/21 22:55 Hypersegmented Neuts Not Reportable 06/25/21 22:55 Hyposegmented Neuts Not Reportable 06/25/21 22:55 Hypogranular Neuts Not Reportable 06/25/21 22:55 Smudge Cells Not Reportable 06/25/21 22:55 Toxic Granulation Not Reportable 06/25/21 22:55 Toxic Vacuolation Not Reportable 06/25/21 22:55 Dohle Bodies Not Reportable 06/25/21 22:55 Pelger-Huet Anomaly Not Reportable 06/25/21 22:55 Otf Rods Not Reportable 06/25/21 22:55 Platelet Estimate Consistent w auto 06/25/21 22:55 Clumped Platelets Not Reportable 06/25/21 22:55 Plt Clumps, EDTA Not Reportable 06/25/21 22:55 Large Platelets Not Reportable 06/25/21 22:55 Giant Platelets Not Reportable 06/25/21 22:55 Platelet Satelliting Not Reportable 06/25/21 22:55 Plt Morphology Comment Not Reportable 06/25/21 22:55 RBC Morphology Normal 06/25/21 22:55 Dimorphic RBCs Not Reportable 06/25/21 22:55 Polychromasia Not Reportable 06/25/21 22:55 Hypochromasia Not Reportable 06/25/21 22:55 Poikilocytosis Not Reportable 06/25/21 22:55 Anisocytosis Not Reportable 06/25/21 22:55 Microcytosis Not Reportable 06/25/21 22:55 Macrocytosis Not Reportable 06/25/21 22:55 Spherocytes Not Reportable 06/25/21 22:55 Pappenheimer Bodies Not Reportable 06/25/21 22:55 Sickle Cells Not Reportable 06/25/21 22:55 Target Cells Not Reportable 06/25/21 22:55 Tear Drop Cells Not Reportable 06/25/21 22:55 Ovalocytes Not Reportable 06/25/21 22:55 Helmet Cells Not Reportable 06/25/21 22:55 [place] Bodies Not Reportable 06/25/21 22:55 [place] Rings Not Reportable 06/25/21 22:55 [place] Cells Not Reportable 06/25/21 22:55 Bite Cells Not Reportable 06/25/21 22:55 Crenated Cell Not Reportable 06/25/21 22:55 Elliptocytes Not Reportable 06/25/21 22:55 Acanthocytes (Spur) Not Reportable 06/25/21 22:55 Rouleaux Not Reportable 06/25/21 22:55 Hemoglobin C Crystals Not Reportable 06/25/21 22:55 Schistocytes Not Reportable 06/25/21 22:55 Malaria parasites Not Reportable 06/25/21 22:55 Steve Bodies Not Reportable 06/25/21 22:55 Hem Pathologist Commnt No 06/25/21 22:55 PT 12.6 Sec. (12.2-14.9) 06/25/21 13:42 INR 0.85 (0.87-1.13) L 06/25/21 13:42 APTT 31.0 Sec. (24.2-36.6) 06/25/21 13:42 Thrombin Time 15.9 Sec. (15.1-19.6) 06/22/21 07:58 Heparin Anti-Xa Level 0.22 U.I./ml (0.3-0.7) L 06/29/21 06:00 ABG pH 7.480 (7.320-7.450) H 06/27/21 05:06 POC ABG pCO2 38.0 mmHg (32.0-48.0) 06/27/21 05:06 ABG pCO2 35.8 mm Hg 06/26/21 10:00 POC ABG pO2 93.6 mmHg (83-108) 06/27/21 05:06 ABG pO2 125.4 mm Hg (80.0-90.0) H 06/26/21 10:00 POC ABG HCO3 27.7 06/27/21 05:06 ABG HCO3 25.3 mmol/L (20.0-26.0) 06/26/21 10:00 ABG O2 Saturation 98.0 (0-100) 06/27/21 05:06 ABG O2 Content 17.1 (0.0-44) 06/26/21 10:00 POC ABG Base Excess 4.0 06/27/21 05:06 ABG Base Excess 1.9 mmol/L (-2.0-3.0) 06/26/21 10:00 ABG Hemoglobin 11.9 (12.0-17.5) L 06/27/21 05:06 ABG Oxyhemoglobin 96.8 (94-98) 06/27/21 05:06 ABG Carboxyhemoglobin 1.1 % (0.0-5.0) 06/26/21 10:00 ABG Methemoglobin 0.3 (0.0-1.5) 06/27/21 05:06 ABG Sodium 123.5 mmol/L (136.0-145.0) L 06/27/21 05:06 ABG Potassium 3.7 mmol/L (3.40-4.50) 06/27/21 05:06 ABG Chloride 91.0 mmol/L (98-107) L 06/27/21 05:06 ABG Glucose 328 mg/dL (65-95) H 06/27/21 05:06 Oxyhemoglobin 97.0 % (95.0-99.0) 06/26/21 10:00 Carboxyhemoglobin 0.9 (0.5-1.5) 06/27/21 05:06 FiO2 50 % 06/26/21 10:00 FiO2 % 40.0 06/27/21 05:06 Sodium 134 mmol/L (137-145) L 06/29/21 06:00 Potassium 3.8 mmol/L (3.6-5.0) 06/29/21 06:00 Chloride 97.8 mmol/L (98-107) L 06/29/21 06:00 Carbon Dioxide 29 mmol/L (22-30) 06/29/21 06:00 Anion Gap 11 mmol/L 06/29/21 06:00 BUN 33 mg/dL (7-17) H 06/29/21 06:00 Creatinine 0.6 mg/dL (0.6-1.2) 06/29/21 06:00 Estimated GFR > 60 ml/min 06/29/21 06:00 BUN/Creatinine Ratio 55 % 06/29/21 06:00 Glucose 189 mg/dL (65-100) H 06/29/21 06:00 POC Glucose 249 mg/dL (70-105) H 06/29/21 12:02 Hemoglobin A1c 6.6 % (4-6) H 06/23/21 05:29 Osmolality 240 Mosm/kg 06/22/21 23:24 Lactic Acid 1.60 mmol/L (0.7-2.0) 06/25/21 22:55 Uric Acid 3.2 mg/dL (3.5-7.6) L 06/23/21 05:29 Calcium 9.7 mg/dL (8.4-10.2) 06/29/21 06:00 Phosphorus 2.20 mg/dL (2.5-4.5) L D 06/29/21 05:13 Magnesium 2.00 mg/dL (1.7-2.3) 06/29/21 05:13 Ferritin 102.1 ng/mL (10.0-200.0) 06/22/21 08:56 Total Bilirubin 0.30 mg/dL (0.1-1.2) 06/29/21 05:13 Direct Bilirubin < 0.2 mg/dL (0-0.2) 06/26/21 04:32 Indirect Bilirubin 0.1 mg/dL 06/26/21 04:32 AST 12 units/L (5-40) 06/29/21 05:13 ALT 9 units/L (7-56) 06/29/21 05:13 Alkaline Phosphatase 31 units/L (35-129) L 06/29/21 05:13 Lactate Dehydrogenase 220 units/L (91-180) H 06/22/21 08:56 Troponin T < 0.010 ng/mL (0.00-0.029) 06/22/21 07:58 C-Reactive Protein 5.40 mg/dL (0.00-1.30) H 06/22/21 08:56 Total Protein 3.3 g/dL (6.3-8.2) L D 06/29/21 05:13 Albumin 1.9 g/dL (3.9-5) L 06/29/21 05:13 Albumin/Globulin Ratio 1.4 % 06/29/21 05:13 Procalcitonin < 0.05 ng/mL (<0.15) 06/22/21 08:56 TSH 1.070 mlU/mL (0.270-4.200) 06/22/21 07:58 Total Cortisol 49.6 mcg/dL () 06/22/21 11:28 Arterial Blood Glucose 328 mg/dL (65-95) H 06/27/21 05:06 Arterial Blood Ionized Calcium 4.9 mg/dL (4.6-5.3) 06/27/21 05:06 Urine Color Yellow (Yellow) 06/26/21 09:48 Urine Turbidity Slightly-cloudy (Clear) 06/26/21 09:48 Urine pH 6.0 (5.0-7.0) 06/26/21 09:48 Ur Specific [place] 1.014 (1.003-1.030) 06/26/21 09:48 Urine Protein 30 mg/dl mg/dL (Negative) 06/26/21 09:48 Urine Glucose (UA) 50 mg/dL (Negative) 06/26/21 09:48 Urine Ketones 20 mg/dL (Negative) 06/26/21 09:48 Urine Blood Mod (Negative) 06/26/21 09:48 Urine Nitrite Neg (Negative) 06/26/21 09:48 Urine Bilirubin Neg (Negative) 06/26/21 09:48 Urine Urobilinogen < 2.0 mg/dL (<2.0) 06/26/21 09:48 Ur Leukocyte Esterase Mod (Negative) 06/26/21 09:48 Urine WBC (Auto) 69.0 /HPF (0.0-6.0) H 06/26/21 09:48 Urine RBC (Auto) 29.0 /HPF (0.0-6.0) 06/26/21 09:48 U Epithel Cells (Auto) 1.0 /HPF (0-13.0) 06/26/21 09:48 Urine Bacteria (Auto) 4+ /HPF (Negative) 06/26/21 09:48 Ur Transition Epith Cell 1 /HPF 06/22/21 11:47 Hyaline Casts 5 /LPF 06/22/21 11:47 Urine Mucus Few /HPF 06/26/21 09:48 Urine Yeast (Budding) 3+ /HPF 06/26/21 09:48 Urine Osmolality 571 Mosm/kg 06/22/21 11:47 Urine Sodium 25 mmol/L 06/22/21 11:47 Coronavirus (PCR) Negative (Negative) 06/22/21 Unknown Microbiology: Microbiology 06/26/21 16:06 Peripheral/Venous Blood Culture - Preliminary NO GROWTH AFTER 48 HOURS 06/26/21 16:06 Peripheral/Venous Blood Culture - Preliminary NO GROWTH AFTER 48 HOURS 06/26/21 09:48 Urine,Clean Catch Urine Culture - Preliminary Active Medications - Current Medications Current Medications: Generic Name Dose Route Start Last Admin Trade Name Freq PRN Reason Stop Dose Admin Acetaminophen 650 mg 06/22/21 22:21 06/23/21 12:13 Acetaminophen 325 Mg Tab PO 650 mg Q4H PRN Administration Pain MILD(1-3)/Fever >100.5/NAVA Lipase/Protease/Amylase 1 each 06/26/21 11:31 Lipase 10,500/Protease 25,000/Amylase 43,750 (Units) Dr Castellanos FEEDTUBE PRN PRN For Clogged Feeding Tube Clopidogrel Bisulfate 75 mg 06/23/21 10:00 06/29/21 09:06 Clopidogrel 75 Mg Tab PO 75 mg DAILY JUDY Administration Docusate Sodium 100 mg 06/25/21 22:00 06/29/21 09:05 Docusate Sodium 100 Mg/10 Ml Oral Liqd PO 100 mg BID JUDY Administration Famotidine 20 mg 06/29/21 22:00 Famotidine 20 Mg Tab FEEDTUBE BID JUDY Heparin Sodium/Sodium Chloride 25,000 unit in 500 mls @ 26 mls/hr 06/25/21 13:00 06/29/21 10:59 Heparin/ 0.45% Nacl-25,000 Unit/500 Ml IV 1,100 units/hr TITR JUDY 22 mls/hr Administration Protocol 1,300 UNITS/HR NORepinephrine/NS 8 MG-250 ML 8 mg in 250 mls @ 3.75 mls/hr 06/25/21 23:00 06/27/21 17:07 Norepinephrine/Ns 8 Mg-250 Ml (Double Conc) IV 0 mcg/min TITRATE JUDY 0 mls/hr Titration Protocol 2 MCG/MIN Vasopressin 20 unit/ Sodium 101 mls @ 9.09 mls/hr 06/26/21 10:00 06/28/21 07:30 Chloride IV 0 units/min TITR JUDY 0 mls/hr Titration Protocol 0.03 UNITS/MIN Cefepime HCl 2 gm in 100 mls @ 200 mls/hr 06/26/21 10:00 06/29/21 10:08 Cefepime/Ns 2 Gm/100 Ml IV 06/30/21 22:29 200 mls/hr Q12H JUDY Administration Protocol Sodium Chloride 1,000 mls @ 100 mls/hr 06/26/21 11:00 06/29/21 05:10 Nacl 0.9% 1000 Ml IV 100 mls/hr DIRECT JUDY Administration Amiodarone HCl 360 mg/ 200 mls @ 33.333 mls/hr 06/28/21 15:00 06/29/21 10:07 Dextrose IV 1 mg/min DIRECT JUDY 33.333 mls/hr Administration Protocol 1 MG/MIN Insulin Glargine 20 units 06/28/21 22:00 06/28/21 21:32 Insulin Glargine 100 Units/Ml SUB-Q 20 units QHS JUDY Administration Insulin Human Lispro 0 unit 06/26/21 12:00 06/29/21 12:46 Insulin Lispro 100 Unit/Ml SUB-Q 4 unit Q6HR JUDY Administration Protocol Metoclopramide HCl 10 mg 06/22/21 22:21 Metoclopramide 10 Mg/2 Ml Inj IV Q6H PRN Nausea And Vomiting Metoprolol Tartrate 5 mg 06/29/21 13:00 06/29/21 12:46 Metoprolol Tartrate 5 Mg/5 Ml Inj IV 5 mg Q6HR JUDY Administration Ondansetron HCl 4 mg 06/22/21 22:21 Ondansetron 4 Mg/2 Ml Inj IV Q8H PRN Nausea And Vomiting Pravastatin Sodium 40 mg 06/23/21 22:00 06/28/21 21:17 Pravastatin 40 Mg Tab PO 40 mg QHS JUDY Administration Simple Syrup 15 ml 06/26/21 11:31 Simple Syrup 15 Ml FEEDTUBE PRN PRN Hypoglycemia Simple Syrup 30 ml 06/26/21 11:31 Simple Syrup 15 Ml FEEDTUBE PRN PRN Hypoglycemia Sodium Bicarbonate 325 mg 06/26/21 11:31 Sodium Bicarbonate 325 Mg Tab FEEDTUBE PRN PRN For Clogged Feeding Tube Sodium Chloride 10 ml 06/23/21 10:00 06/29/21 09:06 Sodium Chloride 0.9% 10 Ml Flush Syringe IV 10 ml BID JUDY Administration Sodium Chloride 10 ml 06/22/21 22:21 Sodium Chloride 0.9% 10 Ml Flush Syringe IV PRN PRN LINE FLUSH Nutrition/Malnutrition Assess - Dietary Evaluation Nutrition/Malnutrition Findings: Nutrition Notes Start: 06/26/21 11:01 Freq: Status: Active Protocol: Document 06/26/21 11:01 VINCENZO (Rec: 06/26/21 11:34 VINCENZO [id number]) Nutrition Notes Need for Assessment generated from: MD Order Initial or Follow up Assessment Current Diagnosis Diabetes,Hypertension Other Pertinent Diagnosis CA Pneumonia, Hyponatremia, Atr Fib w/RVR, Ac Met Encephalopathy. Current Diet NPO (since 06/25), TF-Osmolite 1.5 Volodymyr @ 43 ml/hr (since L 06/26). Labs/Tests 06/26: Na 123, Cl 79.2, BUN 26 , Glu 202, Tpro 5.9, Alb 2.8. Pertinent Medications 06/26: Nutritionally unremarkable. Height 5 ft 5 in Weight 86.183 kg [place] Body Weight (kg) 56.81 BMI 31.6 Weight change and time frame None reported at admission. Weight Status Obese Subjective/Other Information RD consult for evaluation of nutritional intake and write/ manage TF. Pt on mechanical ventilation. Pt sedated. Pt has missing teeth. Percent of energy/protein needs met: Pt currently on NPO. Burn Absent Trauma Absent GI Symptoms None Food Allergy No Skin Integrity/Comment Unspecified bruises. Current % PO Other Minimum of two criteria No #1 Nutrition Diagnosis Inadequate oral intake Etiology Pt 's worsening lethargy and respiratory distress. As Evidenced by Signs and Symptoms Pt on mechanical ventilation and sedated, MD request for write/manage TF. Is patient on ventilator? Yes Is Patient Ambulatory and/or Out of Bed No REE-([facility]-confined to bed) 1700.352 Kcal/Kg value to use for calculation 18 Approximate Energy Requirements Using 1551 kcal/Kg Calculation Used for Recommendations Kcal/kg Additional Notes Protein: 1-1.2 g/Kg; 72-86 g/ day. Fluids: 1 ml/Kcal, or as per MD. Nutrition Intervention Nutrition Support: Start Osmolite 1.5 Volodymyr @ 43 ml /hr. Flush: 130 ml water Q 4 hr. Kcal 1,551 Protein (gm) 65 Carbohydrates (gm) 211 Fat (gm) 51 Fluid (mL) 788 Fiber (gm) 0 % RDI: 100% Kcal; 90% AA. Goal #1 Provide at least 75% of energy /protein needs through Enteral Feeding during LOS. Follow-Up By: 06/29/21 Additional Comments Continue monitoring TF tolerance and BM.
[2021-06-29] MEDS ORDERED: SODIUM BICARBONATE 325 MG TAB FEEDTUBE PRN (16:20)
[2021-06-29] MEDS ORDERED: SIMPLE SYRUP 15 ML FEEDTUBE PRN ×2 (16:20)
[2021-06-29] MEDS ORDERED: LIPASE 10,500/PROTEASE 25,000/AMYLASE 43,750 (UNITS) DR CAP FEEDTUBE PRN (16:20)
[2021-06-29] MEDS: INSULIN GLARGINE 100 UNITS/ML SUB-Q SCH (22:36)
[2021-06-29] MEDS: FAMOTIDINE 20 MG TAB FEEDTUBE SCH (22:55)
[2021-06-29] MEDS: PRAVASTATIN 40 MG TAB PO SCH (22:57)
[2021-06-30] MEDS: METOPROLOL TARTRATE 5 MG/5 ML INJ IV SCH ×2 (00:59→05:55)
[2021-06-30] MEDS: SODIUM CHLORIDE 0.9% 1000 ML 1,000 ML IV SCH ×2 (01:00→14:15)
[2021-06-30] MEDS: INSULIN LISPRO 100 UNIT/ML SUB-Q SCH ×4 (01:00→18:55)
[2021-06-30 05:07] LABS: Eosinophils # (Auto) 0.1 K/mm3 (0.0-0.4); Eosinophils % (Auto) 0.5 % (0.0-4.3); Hematocrit 31.2 % (30.3-42.9); Hemoglobin 10.2 gm/dl (10.1-14.3); Lymphocytes % (Auto) 8.6 % (13.4-35.0); Mean Corpuscular HGB Conc 33 % (30-34); Mean Corpuscular Volume 93 fl (79-97); Monocytes % (Auto) 8.3 % (0.0-7.3); Platelet Count 391 K/mm3 (140-440); Red Blood Count 3.37 M/mm3 (3.65-5.03); Red Cell Distribution Width 13.8 % (13.2-15.2)
[2021-06-30 05:25] LABS: Blood Urea Nitrogen 30 mg/dL (7-17); Calcium 9.4 mg/dL (8.4-10.2); Hemolysis Index 0
[2021-06-30 05:42] LABS: BUN/Creatinine Ratio 60
[2021-06-30] MEDS: AMIODARONE 360 MG in DEXTROSE 5% IN WATER 192.8 ML IV SCH (06:27)
[2021-06-30] MEDS: CEFEPIME/NS 2 GM/100 ML 2 GM/100 ML BAG IV SCH ×2 (11:02→23:58)
[2021-06-30] MEDS: HEPARIN/ 0.45% NACL DRIP 25,000 UNIT/500 ML BAG IV SCH (11:03)
[2021-06-30] MEDS: FAMOTIDINE 20 MG TAB FEEDTUBE SCH ×2 (11:04→23:00)
[2021-06-30] MEDS: CLOPIDOGREL 75 MG TAB PO SCH (11:04)
[2021-06-30] MEDS: DOCUSATE SODIUM 100 MG/10 ML ORAL LIQD PO SCH ×2 (11:04→22:59)
--- NOTE | 2021-06-30 11:04 | Progress Note ---
Assessment and Plan - Patient Problems (1) Acute hyponatremia Current Visit: Yes Status: Acute Plan to address problem: Serum sodium levels have normalized at this time. Can decrease IV fluids to 50 cc an hour. From nephrology standpoint we will sign off at this time but please feel free to contact us as needed. (2) Acute metabolic encephalopathy Current Visit: Yes Status: Acute Plan to address problem: overall mental status seems to be showing slow improvement since admission.. (3) Atrial fibrillation with RVR Current Visit: Yes Status: Acute Plan to address problem: cardiology recommendations appreciated. (4) Community acquired pneumonia Current Visit: Yes Status: Acute Plan to address problem: antibiotic therapy per primary team. (5) Essential (primary) hypertension Current Visit: Yes Status: Acute Plan to address problem: monitor blood pressure on the current regimen. Currently hypotensive and on pressor support. (6) Type 2 diabetes mellitus without complications Current Visit: Yes Status: Chronic Plan to address problem: diabetes management per primary attending. Subjective Date of service: 06/30/21 Principal diagnosis: AF w RVR Interval history: no acute changes from renal standpoint. Overall renal function remained stable and serum sodium has normalized at this time. Objective - Vital Signs Vital signs: Vital Signs - 12hr 06/29/21 06/29/21 06/29/21 23:08 23:15 23:17 Temperature Pulse Rate 94 H 94 H Pulse Rate [ From Monitor] Respiratory 19 17 Rate Blood Pressure 152/72 152/74 O2 Sat by Pulse 99 100 99 Oximetry 06/29/21 06/29/21 06/29/21 23:30 23:33 23:45 Temperature Pulse Rate 94 H 92 H 94 H Pulse Rate [ From Monitor] Respiratory 18 21 21 Rate Blood Pressure 161/77 161/77 161/77 O2 Sat by Pulse 99 98 99 Oximetry 06/30/21 06/30/21 06/30/21 00:00 00:15 00:30 Temperature 98.5 F Pulse Rate 94 H 89 94 H Pulse Rate [ 90 From Monitor] Respiratory 16 22 18 Rate Blood Pressure 166/71 166/71 173/73 O2 Sat by Pulse 98 98 99 Oximetry 06/30/21 06/30/21 06/30/21 00:45 00:59 01:00 Temperature Pulse Rate 92 H 91 H 92 H Pulse Rate [ From Monitor] Respiratory 29 H 19 Rate Blood Pressure 173/73 173/73 155/70 O2 Sat by Pulse 99 99 Oximetry 06/30/21 06/30/21 06/30/21 01:15 01:31 01:45 Temperature Pulse Rate 69 73 72 Pulse Rate [ From Monitor] Respiratory 17 20 26 H Rate Blood Pressure 155/70 152/65 152/65 O2 Sat by Pulse 97 98 93 Oximetry 06/30/21 06/30/21 06/30/21 01:56 02:00 02:15 Temperature Pulse Rate 80 82 76 Pulse Rate [ From Monitor] Respiratory 17 34 H 15 Rate Blood Pressure 152/65 148/63 148/63 O2 Sat by Pulse 99 99 100 Oximetry 06/30/21 06/30/21 06/30/21 02:30 02:45 03:00 Temperature Pulse Rate 90 85 87 Pulse Rate [ From Monitor] Respiratory 24 22 22 Rate Blood Pressure 145/70 145/70 155/63 O2 Sat by Pulse 100 100 100 Oximetry 06/30/21 06/30/21 06/30/21 03:15 03:30 03:45 Temperature Pulse Rate 93 H 95 H 93 H Pulse Rate [ From Monitor] Respiratory 23 17 27 H Rate Blood Pressure 155/63 159/64 159/64 O2 Sat by Pulse 100 99 96 Oximetry 06/30/21 06/30/21 06/30/21 04:00 04:15 04:30 Temperature 98.2 F Pulse Rate 99 H 96 H 88 Pulse Rate [ 95 H From Monitor] Respiratory 25 H 26 H 16 Rate Blood Pressure 157/72 157/72 156/70 O2 Sat by Pulse 97 99 99 Oximetry 06/30/21 06/30/21 06/30/21 04:45 05:00 05:15 Temperature Pulse Rate 91 H 176 H Pulse Rate [ From Monitor] Respiratory 23 36 H 30 H Rate Blood Pressure 156/70 156/66 156/66 O2 Sat by Pulse 97 99 98 Oximetry 06/30/21 06/30/21 06/30/21 05:31 05:44 05:45 Temperature Pulse Rate 87 94 H 78 Pulse Rate [ From Monitor] Respiratory 19 17 22 Rate Blood Pressure 130/55 130/55 130/55 O2 Sat by Pulse 95 98 99 Oximetry 06/30/21 06/30/21 06/30/21 05:55 06:00 06:15 Temperature Pulse Rate 87 96 H 64 Pulse Rate [ From Monitor] Respiratory 35 H 19 Rate Blood Pressure 130/55 146/61 146/61 O2 Sat by Pulse 100 95 Oximetry 06/30/21 06/30/21 06/30/21 06:31 06:45 07:00 Temperature Pulse Rate 67 69 72 Pulse Rate [ From Monitor] Respiratory 15 15 21 Rate Blood Pressure 131/45 131/45 131/58 O2 Sat by Pulse 100 96 99 Oximetry 06/30/21 06/30/21 06/30/21 07:15 07:31 07:45 Temperature Pulse Rate 78 67 83 Pulse Rate [ From Monitor] Respiratory 13 13 19 Rate Blood Pressure 131/58 111/43 111/43 O2 Sat by Pulse 100 100 100 Oximetry 06/30/21 06/30/21 06/30/21 08:00 08:01 08:15 Temperature 98.4 F Pulse Rate 85 97 H 85 Pulse Rate [ From Monitor] Respiratory 22 21 Rate Blood Pressure 104/47 104/47 O2 Sat by Pulse 97 98 100 Oximetry 06/30/21 06/30/21 06/30/21 08:31 08:45 09:00 Temperature Pulse Rate 74 81 87 Pulse Rate [ From Monitor] Respiratory 18 21 15 Rate Blood Pressure 145/60 145/60 143/62 O2 Sat by Pulse 100 100 100 Oximetry - General Appearance General appearance: obese, chronically ill, frail EENT: ATNC Neck: no JVD Respiratory: Present: Wheezes Cardiology: regular Gastrointestinal: normal Neurologic: no focal deficit Musculoskeletal: deferred - Lab 06/30/21 04:20 06/30/21 04:20 Most recent lab results ABG pH 7.480 (7.320-7.450) H 06/27/21 05:06 ABG pCO2 35.8 mm Hg 06/26/21 10:00 ABG pO2 125.4 mm Hg (80.0-90.0) H 06/26/21 10:00 ABG HCO3 25.3 mmol/L (20.0-26.0) 06/26/21 10:00 ABG O2 Saturation 98.0 (0-100) 06/27/21 05:06 Calcium 9.4 mg/dL (8.4-10.2) 06/30/21 04:20 Phosphorus 3.00 mg/dL (2.5-4.5) D 06/30/21 04:20 Magnesium 2.00 mg/dL (1.7-2.3) 06/29/21 05:13 Urine Sodium 25 mmol/L 06/22/21 11:47 - Allied health notes Allied health notes reviewed: nursing Medications & Allergies - Medications Allergies/Adverse Reactions: Allergies No Known Allergies Allergy (Verified 06/26/21 16:15) Home Medications: Home Medications Medication Instructions Recorded Confirmed Last Taken Type Atenolol/Chlorthalidone [Tenoretic 1 tab PO DAILY 06/22/21 06/22/21 Unknown History 50-25] Clopidogrel [Plavix] 75 mg PO DAILY 06/22/21 06/22/21 Unknown History Glimepiride [Amaryl] 2 mg PO QAM 06/22/21 06/22/21 Unknown History Pioglitazone [Actos] 15 mg PO DAILY 06/22/21 06/22/21 Unknown History Pravastatin [Pravachol] 40 mg PO QHS 06/22/21 06/22/21 Unknown History lisinopriL [Zestril TAB] 5 mg PO DAILY 06/22/21 06/22/21 Unknown History Active Medications: Generic Name Dose Route Start Last Admin Trade Name Freq PRN Reason Stop Dose Admin Acetaminophen 650 mg 06/22/21 22:21 06/23/21 12:13 Acetaminophen 325 Mg Tab PO 650 mg Q4H PRN Administration Pain MILD(1-3)/Fever >100.5/NAVA Lipase/Protease/Amylase 1 each 06/29/21 16:20 Lipase 10,500/Protease 25,000/Amylase 43,750 (Units) Dr Castellanos FEEDTAUDRA PRN PRN For Clogged Feeding Tube Clopidogrel Bisulfate 75 mg 06/23/21 10:00 06/29/21 09:06 Clopidogrel 75 Mg Tab PO 75 mg DAILY JUDY Administration Docusate Sodium 100 mg 06/25/21 22:00 06/29/21 22:54 Docusate Sodium 100 Mg/10 Ml Oral Liqd PO 100 mg BID JUDY Administration Famotidine 20 mg 06/29/21 22:00 06/29/21 22:55 Famotidine 20 Mg Tab FEEDTUBE 20 mg BID JUDY Administration Heparin Sodium/Sodium Chloride 25,000 unit in 500 mls @ 26 mls/hr 06/25/21 13:00 06/30/21 05:30 Heparin/ 0.45% Nacl-25,000 Unit/500 Ml IV 1,100 units/hr TITR JUDY 22 mls/hr Titration Protocol 1,300 UNITS/HR Vasopressin 20 unit/ Sodium 101 mls @ 9.09 mls/hr 06/26/21 10:00 06/28/21 07:30 Chloride IV 0 units/min TITR JUDY 0 mls/hr Titration Protocol 0.03 UNITS/MIN Cefepime HCl 2 gm in 100 mls @ 200 mls/hr 06/26/21 10:00 06/29/21 22:55 Cefepime/Ns 2 Gm/100 Ml IV 06/30/21 22:29 200 mls/hr Q12H JUDY Administration Protocol Sodium Chloride 1,000 mls @ 100 mls/hr 06/26/21 11:00 06/30/21 01:00 Nacl 0.9% 1000 Ml IV 100 mls/hr DIRECT JUDY Administration Insulin Human Lispro 0 unit 06/26/21 12:00 06/30/21 05:56 Insulin Lispro 100 Unit/Ml SUB-Q Not Given Q6HR [facility] Protocol Metoclopramide HCl 10 mg 06/22/21 22:21 Metoclopramide 10 Mg/2 Ml Inj IV Q6H PRN Nausea And Vomiting Metoprolol Tartrate 5 mg 06/30/21 12:00 Metoprolol Tartrate 5 Mg/5 Ml Inj IV Q6HR [facility] Ondansetron HCl 4 mg 06/22/21 22:21 Ondansetron 4 Mg/2 Ml Inj IV Q8H PRN Nausea And Vomiting Pravastatin Sodium 40 mg 06/23/21 22:00 06/29/21 22:57 Pravastatin 40 Mg Tab PO 40 mg QHS [facility] Administration Simple Syrup 15 ml 06/29/21 16:20 Simple Syrup 15 Ml FEEDTUBE PRN PRN Hypoglycemia Simple Syrup 30 ml 06/29/21 16:20 Simple Syrup 15 Ml FEEDTUBE PRN PRN Hypoglycemia Sodium Bicarbonate 325 mg 06/29/21 16:20 Sodium Bicarbonate 325 Mg Tab FEEDTUBE PRN PRN For Clogged Feeding Tube Sodium Chloride 10 ml 06/23/21 10:00 06/29/21 22:57 Sodium Chloride 0.9% 10 Ml Flush Syringe IV 10 ml BID JUDY Administration Sodium Chloride 10 ml 06/22/21 22:21 Sodium Chloride 0.9% 10 Ml Flush Syringe IV PRN PRN LINE FLUSH
--- NOTE | 2021-06-30 11:58 | Progress Note ---
Assessment and Plan Patient is 65-year-old female with a past medical history of hypertension, diabetes, and tobacco use who is brought to the ED for complaint of weakness and altered mental status that lasted 4 days prior to admission Acute Encephalopathy Symptomatic Hyponatremia-nephrology following Acute Respiratory Failure-on Bipap PNA UTI Hypotension AF with RVR (new onset) Hypokalemia (resolved) Hypomagnesemia (resolved) H/o HTN DM2 H/o Tobacco Abuse Echo reviewed - EF 60-65%, no significant valvular abnormalities. Plan: Continue heparin gtt for anticoagulation Patient no longer on amiodarone drip Initiate metoprolol 25 mg p.o. every 6 hours for rate control Patient seen in conjunction with Dr. Morrow who agrees with this plan of care. We will continue to follow - Patient Problems (1) Atrial fibrillation with RVR Current Visit: Yes Status: Acute (2) Acute metabolic encephalopathy Current Visit: Yes Status: Acute (3) Acute hyponatremia Current Visit: Yes Status: Acute (4) Community acquired pneumonia Current Visit: Yes Status: Acute (5) Hypokalemia Current Visit: Yes Status: Acute (6) Essential (primary) hypertension Current Visit: Yes Status: Acute (7) Type 2 diabetes mellitus without complications Current Visit: Yes Status: Chronic (8) Hypomagnesemia Current Visit: Yes Status: Acute (9) UTI (urinary tract infection) Current Visit: Yes Status: Acute Qualifiers: Urinary tract infection type: acute cystitis Subjective Date of service: 06/30/21 Principal diagnosis: AF w RVR Interval history: Patient resting in bed currently on BiPAP A. fib 70s on monitor Objective Vital Signs Temp Pulse Pulse Resp BP Pulse Ox 06/30/21 11:01 85 13 121/70 100 06/30/21 10:45 85 12 121/70 97 06/30/21 10:30 78 17 121/70 96 06/30/21 10:15 89 22 164/71 100 06/30/21 10:01 93 H 17 164/71 100 06/30/21 09:45 69 19 135/48 98 06/30/21 09:31 61 17 135/48 99 06/30/21 09:15 63 16 143/62 98 06/30/21 09:00 87 15 143/62 100 06/30/21 08:45 81 21 145/60 100 06/30/21 08:31 74 18 145/60 100 06/30/21 08:15 85 21 104/47 100 06/30/21 08:01 97 H 22 104/47 98 06/30/21 08:00 98.4 F 85 97 06/30/21 07:45 83 19 111/43 100 06/30/21 07:31 67 13 111/43 100 06/30/21 07:15 78 13 131/58 100 06/30/21 07:00 72 21 131/58 99 06/30/21 06:45 69 15 131/45 96 06/30/21 06:31 67 15 131/45 100 06/30/21 06:15 64 19 146/61 95 06/30/21 06:00 96 H 35 H 146/61 100 06/30/21 05:55 87 130/55 06/30/21 05:45 78 22 130/55 99 06/30/21 05:44 94 H 17 130/55 98 06/30/21 05:31 87 19 130/55 95 06/30/21 05:15 30 H 156/66 98 06/30/21 05:00 176 H 36 H 156/66 99 06/30/21 04:45 91 H 23 156/70 97 06/30/21 04:30 88 16 156/70 99 06/30/21 04:15 96 H 26 H 157/72 99 06/30/21 04:00 98.2 F 99 H 95 H 25 H 157/72 97 06/30/21 03:45 93 H 27 H 159/64 96 06/30/21 03:30 95 H 17 159/64 99 06/30/21 03:15 93 H 23 155/63 100 06/30/21 03:00 87 22 155/63 100 06/30/21 02:45 85 22 145/70 100 06/30/21 02:30 90 24 145/70 100 06/30/21 02:15 76 15 148/63 100 06/30/21 02:00 82 34 H 148/63 99 06/30/21 01:56 80 17 152/65 99 06/30/21 01:45 72 26 H 152/65 93 06/30/21 01:31 73 20 152/65 98 06/30/21 01:15 69 17 155/70 97 06/30/21 01:00 92 H 19 155/70 99 06/30/21 00:59 91 H 173/73 06/30/21 00:45 92 H 29 H 173/73 99 06/30/21 00:30 94 H 18 173/73 99 06/30/21 00:15 89 22 166/71 98 06/30/21 00:00 98.5 F 94 H 90 16 166/71 98 06/29/21 23:45 94 H 21 161/77 99 06/29/21 23:33 92 H 21 161/77 98 06/29/21 23:30 94 H 18 161/77 99 06/29/21 23:17 99 06/29/21 23:15 94 H 17 152/74 100 06/29/21 23:08 94 H 19 152/72 99 06/29/21 23:01 99 H 17 152/74 99 06/29/21 22:45 103 H 10 L 166/69 06/29/21 22:30 96 H 22 166/69 06/29/21 22:15 94 H 20 169/66 06/29/21 22:00 87 18 169/66 100 06/29/21 21:45 91 H 19 138/72 100 06/29/21 21:30 91 H 12 138/72 99 06/29/21 21:15 93 H 22 148/74 98 06/29/21 21:00 86 12 159/72 98 06/29/21 20:45 90 12 164/69 99 06/29/21 20:31 84 19 164/69 98 06/29/21 20:15 92 H 38 H 137/118 93 06/29/21 20:00 83 96 H 17 166/67 99 06/29/21 19:45 85 25 H 166/71 99 06/29/21 19:30 81 19 163/63 99 06/29/21 19:15 79 11 L 164/72 99 06/29/21 19:00 90 17 164/72 100 06/29/21 18:45 91 H 12 167/75 100 06/29/21 18:31 89 23 166/71 98 06/29/21 18:20 110 H 06/29/21 18:15 93 H 20 164/60 98 06/29/21 18:12 101 H 27 H 153/64 97 06/29/21 18:00 92 H 14 164/60 98 06/29/21 17:45 100 H 27 H 165/55 98 06/29/21 17:30 91 H 24 165/55 98 06/29/21 17:15 93 H 19 162/57 97 06/29/21 17:00 93 H 18 162/57 97 06/29/21 16:45 88 16 162/62 98 06/29/21 16:30 92 H 14 164/68 96 06/29/21 16:15 94 H 21 153/69 97 06/29/21 16:01 99 H 20 154/64 97 06/29/21 16:00 97.0 F L 100 H 97 06/29/21 15:45 109 H 13 180/78 96 06/29/21 15:31 114 H 20 180/78 06/29/21 15:15 102 H 22 161/59 97 06/29/21 15:00 97 H 23 165/69 97 06/29/21 14:45 103 H 25 H 159/73 96 06/29/21 14:30 103 H 30 H 173/66 94 06/29/21 14:15 106 H 23 168/77 93 06/29/21 14:00 104 H 26 H 158/73 93 06/29/21 13:45 106 H 27 H 168/73 91 06/29/21 13:30 105 H 15 158/80 90 06/29/21 13:15 105 H 23 164/76 89 06/29/21 13:00 105 H 26 H 164/80 90 06/29/21 12:46 122 H 167/77 06/29/21 12:45 122 H 17 167/77 90 06/29/21 12:30 126 H 16 170/83 91 06/29/21 12:15 126 H 23 163/75 06/29/21 12:01 125 H 25 H 158/71 94 06/29/21 12:00 97.1 F L 125 H 06/29/21 11:59 95 - Physical Examination General: No Apparent Distress HEENT: Positive: Normocephaly, Mucus Membranes Dry Neck: Positive: neck supple, trachea midline Cardiac: Positive: irregularly irregular Lungs: Positive: Decreased Breath Sounds Neuro: Positive: Grossly Intact Abdomen: Positive: Soft Skin: Negative: Rash Musculoskeletal: No Fluid Collection Extremities: Present: lower extr. pulses, warm. Absent: edema - Labs and Meds CBC 06/30/21 Range/Units 04:20 WBC 11.9 H (4.5-11.0) K/mm3 RBC 3.37 L (3.65-5.03) M/mm3 Hgb 10.2 (10.1-14.3) gm/dl Hct 31.2 (30.3-42.9) % Plt Count 391 (140-440) K/mm3 Lymph # (Auto) 1.0 L (1.2-5.4) K/mm3 [place] # (Auto) 1.0 H (0.0-0.8) K/mm3 Eos # (Auto) 0.1 (0.0-0.4) K/mm3 Baso # (Auto) 0.0 (0.0-0.1) K/mm3 Comprehensive Metabolic Panel 06/30/21 Range/Units 04:20 Sodium 138 (137-145) mmol/L Potassium 3.9 (3.6-5.0) mmol/L Chloride 101.2 (98-107) mmol/L Carbon Dioxide 29 (22-30) mmol/L BUN 30 H (7-17) mg/dL Creatinine 0.5 L (0.6-1.2) mg/dL Glucose 92 (65-100) mg/dL Calcium 9.4 (8.4-10.2) mg/dL - Imaging and Cardiology EKG: report reviewed, image reviewed Echo: report reviewed - Telemetry EKG Rhythm: Atrial Fibrillation - EKG Supraventricular dysrhythmia: atrial fibrillation Ventricular dysrhythmias: ventricular premature com Myocardial infarction: septal FL (old age or ind, anterior FL (old age or i - Allied health notes Allied health notes reviewed: nursing
[2021-06-30] MEDS ORDERED: METOPROLOL TARTRATE 25 MG TAB PO SCH (12:00)
[2021-06-30] MEDS ORDERED: METOPROLOL TARTRATE 5 MG/5 ML INJ IV SCH (12:00)
--- NOTE | 2021-06-30 12:29 | Progress Note ---
Assessment and Plan Assessment and plan: This is a 55-year-old female with HTN, tobacco abuse and diabetes mellitus admitted for severe hyponatremia, hypochloremia and hypokalemia, acute proximal respiratory failure, mini seizure-like activity and urinary tract infection. Hospital Course to Date This is a 55-year-old female with hypertension, atrial fibrillation, tobacco abuse and diabetes mellitus who presents the emergency department on 06/22 for severe weakness, altered mental status and witnessed seizure-like activity. CXR showed left basilar airspace opacity and work-up in the emergency department revealed severe hyponatremia, hypokalemia, severe hypochloremia, metabolic alkalosis acute hypoxic respiratory failure, witnessed seizure activity and urinary tract infection. Patient was admitted to the hospital service with consults to nephrology and [facility]. 06/23/2021- Patient symptomatically better, Sodium is 117 06/24: Sodium slightly better however we will still admit to ICU, no acute vents overnight 06/25: Patient noted to be in atrial fibrillation upon transfer to ICU and stat ECG revealed atrial fibrillation. Cardiology was consulted. Patient restarted on home beta-jeimy and was eventually changed to amiodarone. She was started on heparin drip. Patient will be transferred to the telemetry floor. 06/26: Yesterday evening transfer was held and ABG read which showed hypercapnia and patient was intubated. Patient became bradycardic and hypotensive and was started on Levophed. This morning patient Levophed was in the high 20s therefore vasopressin was added. After addition of vasopressin and was able to wean Levophed. Stress dose steroids started due to labile pressures. Broad- spectrum antibiotics started. Patient started on albumin and normal saline per nephrology. Cotisol ordered 06/27/2021: nephro started MIVF and does not see any indication fro hypertonic at this time. SR noted this morning. Remains on vasopression. Likely PSV in the AM. increase in insulin /2: PSV for couple hours then noted to be in afib with rvr. amio gtt restarted but patient converted back to SR after switched back to AC mode. stopped vanco today. off vasopressors. 06/29: Patient s/p extubation this am on 5L NC SPO2 at 100%. However, patient found alerted and unrousable post extubation, probably related to hypercapnia. Orders placed for stat ABG, and place patient on Bipap, d/w CCM. 06/30: Patient remains on Bipap. Plan to switch Bipap to NC this am,will assess for tolerance. Remains on amio and heparin gtt. Will keep patient strict NPO for now just in case she needs to go back on continuous Bipap Assessment and Plan #Neuro: Acute metabolic encephalopathy -Reported seizure-like activity and admitted by family however this could be related to her severe hyponatremia -No witnessed seizure activity after admit -S/p 3% saline -S/p extubation on 06/29, was AAO preintubation -2Hrs post extubation, patient was noted Altered and unrousable, most likely related to hypercapnia -Fully AAO this am, following commands -Avoid delirium -Reorientation as needed -Maintain sleep-wake cycle -As needed analgesia #Cardio:Atrial fibrillation #H/o HTN -Patient remains in Afib on the monitor, rate control this am -Cardiology consulted, appreciate recommendations -On Amiodarone drip -06/25 Echocardiogram shows Normal bivalve function, LVEF 60 to 65% -No longer on pressors, stress dose steroids D/Eleazar -Continue blood pressure monitor per protocol -Maintain MAP above 65 -hold home antihtn regimen on hold -Continue Plavix and AC-Heparin gtt #Respiratory: Acute hypercarbic respiratory failure -Intubated on 06/25 -S/p extubation this am 06/29 -Patient found altered and unrousable 2hrs post extubation -On 5L NC SPO2 at 100%, most likely related to hypercapnia -Stat ABG ordered -Plan to place patient on Bipap -Plan to swicth back to NC to see how she does -CCM consulted, appreciate recommendations -Aspiration precaution HOB above 30 -PRN ABG and CXR per CCM -Continue O2 supplementation and SPO2 monitoring for SPO2 goal above 95% #GI: NPO -Keep patient NPO for now in case she needs to go back on continuous Bipap -Continue IVF for now -Continue BR -Continue PPI-Pepcid #Severe hyponatremia-improving -Patient presented with critically low Na, as low as 104 -Probably related to dehydration vs infectious process -Patient was also on diuretic at home -S/p 3% saline and Samsca -Now on Continue IV NS -Scr improving 134 this am -Nephrology consulted, appreciate recommendations -Strict intake and output -Avoid nephrotoxic medications; Renally dose medications -Martines in place -Monitor and replace electrolytes as needed -Trend BMP #ID:Urinary tract infection #Community-acquired pneumonia #Leukocytosis -Initial CXR with left basilar airspace opacity, possible atelectasis vs pneumonia -UA consistent with UTI, urine culture negative -Blood cultures NGTD -Leukocytosis as high as 14.9, WBcs downtrending -Patient remains afebrile -Continue currentl IV [id number] -Continue to F/U on B.cult -Daily CBC monitor -Consider ID consult if febrile or/and if leukocytosis worsen #Endo:Type 2 Diabetes -Hemoglobin A1c 6.6 -Continue SSI Q6hrs while NPO -Continue lantus QHs -Avoid hypoglycemia #DVT Prophylaxis -Continue AC- Heparin gtt -SCDs to bilateral lower extremities while in bed The high probability of a clinically significant, sudden or life threatening deterioration of the [Respiratory,Renal,GI] system(s) required my full and direct attention, intervention and personal management. The aggregate critical care time was [60] minutes. This time is in addition to time spent performing r eported procedures but includes the following: [x] Data Review and interpretation [x] Patient assessment and monitoring of vital signs [x] Documentation [x] Medication orders and management Disposition Plan: ICU Total Time Spent with Patient (Minutes): 60 History Interval history: Patient seen and examined at the bedside. Patient is AAO on bipap, following commands. GOLDEN overnight Hospitalist Physical - Constitutional Vitals: Temp Pulse Resp BP Pulse Ox 98.4 F 86 18 174/68 98 06/30/21 08:00 06/30/21 12:15 06/30/21 12:15 06/30/21 12:15 06/30/21 12:15 General appearance: Present: no acute distress - EENT Eyes: Present: PERRL ENT: hearing intact - Neck Neck: Present: normal ROM - Respiratory Respiratory effort: normal Respiratory: bilateral: diminished - Cardiovascular Rhythm: regular Heart Sounds: Present: S1 & S2 - Extremities Extremities: no ischemia, pulses intact, pulses symmetrical Extremity abnormal: edema - Peripheral Assessment Generalized Edema Type: Non-pitting Edema Degree: 2+ Capillary Refill: < 3 seconds Skin Temperature: Warm Peripheral Pulses: within normal limits - Abdominal General gastrointestinal: soft, non-tender, normal bowel sounds - Integumentary Integumentary: Present: warm, dry - Psychiatric Psychiatric: appropriate mood/affect, cooperative - Neurologic Neurologic: moves all extremities - Allied Health Allied health notes reviewed: nursing HEART Score - HEART Score Troponin: Troponin T < 0.010 ng/mL (0.00-0.029) 06/22/21 07:58 Results - Labs CBC & Chem 7: 06/30/21 04:20 06/30/21 04:20 Labs: Laboratory Last Values WBC 11.9 K/mm3 (4.5-11.0) H 06/30/21 04:20 RBC 3.37 M/mm3 (3.65-5.03) L 06/30/21 04:20 Hgb 10.2 gm/dl (10.1-14.3) 06/30/21 04:20 Hct 31.2 % (30.3-42.9) 06/30/21 04:20 MCV 93 fl (79-97) 06/30/21 04:20 MCH 30 pg (28-32) 06/30/21 04:20 MCHC 33 % (30-34) 06/30/21 04:20 RDW 13.8 % (13.2-15.2) 06/30/21 04:20 Plt Count 391 K/mm3 (140-440) 06/30/21 04:20 Lymph % (Auto) 8.6 % (13.4-35.0) L 06/30/21 04:20 [place] % (Auto) 8.3 % (0.0-7.3) H 06/30/21 04:20 Eos % (Auto) 0.5 % (0.0-4.3) 06/30/21 04:20 Baso % (Auto) 0.0 % (0.0-1.8) 06/30/21 04:20 Lymph # (Auto) 1.0 K/mm3 (1.2-5.4) L 06/30/21 04:20 [place] # (Auto) 1.0 K/mm3 (0.0-0.8) H 06/30/21 04:20 Eos # (Auto) 0.1 K/mm3 (0.0-0.4) 06/30/21 04:20 Baso # (Auto) 0.0 K/mm3 (0.0-0.1) 06/30/21 04:20 Add Manual Diff Complete 06/25/21 22:55 Total Counted 100 06/25/21 22:55 Seg Neutrophils % 82.6 % (40.0-70.0) H 06/30/21 04:20 Seg Neuts % (Manual) 91.0 % (40.0-70.0) H 06/25/21 22:55 Lymphocytes % (Manual) 6.0 % (13.4-35.0) L 06/25/21 22:55 Monocytes % (Manual) 3.0 % (0.0-7.3) 06/25/21 22:55 Metamyelocytes % 1.0 % 06/24/21 05:33 Nucleated RBC % Not Reportable 06/25/21 22:55 Seg Neutrophils # 9.8 K/mm3 (1.8-7.7) H 06/30/21 04:20 Seg Neutrophils # Man 13.5 K/mm3 (1.8-7.7) H 06/25/21 22:55 Band Neutrophils # 0.0 K/mm3 06/25/21 22:55 Lymphocytes # (Manual) 0.9 K/mm3 (1.2-5.4) L 06/25/21 22:55 Abs React Lymphs (Man) 0.0 K/mm3 06/25/21 22:55 Monocytes # (Manual) 0.4 K/mm3 (0.0-0.8) 06/25/21 22:55 Eosinophils # (Manual) 0.0 K/mm3 (0.0-0.4) 06/25/21 22:55 Basophils # (Manual) 0.0 K/mm3 (0.0-0.1) 06/25/21 22:55 Metamyelocytes # 0.0 K/mm3 06/25/21 22:55 Myelocytes # 0.0 K/mm3 06/25/21 22:55 Promyelocytes # 0.0 K/mm3 06/25/21 22:55 Blast Cells # 0.0 K/mm3 06/25/21 22:55 WBC Morphology Not Reportable 06/25/21 22:55 Hypersegmented Neuts Not Reportable 06/25/21 22:55 Hyposegmented Neuts Not Reportable 06/25/21 22:55 Hypogranular Neuts Not Reportable 06/25/21 22:55 Smudge Cells Not Reportable 06/25/21 22:55 Toxic Granulation Not Reportable 06/25/21 22:55 Toxic Vacuolation Not Reportable 06/25/21 22:55 Dohle Bodies Not Reportable 06/25/21 22:55 Pelger-Huet Anomaly Not Reportable 06/25/21 22:55 Otf Rods Not Reportable 06/25/21 22:55 Platelet Estimate Consistent w auto 06/25/21 22:55 Clumped Platelets Not Reportable 06/25/21 22:55 Plt Clumps, EDTA Not Reportable 06/25/21 22:55 Large Platelets Not Reportable 06/25/21 22:55 Giant Platelets Not Reportable 06/25/21 22:55 Platelet Satelliting Not Reportable 06/25/21 22:55 Plt Morphology Comment Not Reportable 06/25/21 22:55 RBC Morphology Normal 06/25/21 22:55 Dimorphic RBCs Not Reportable 06/25/21 22:55 Polychromasia Not Reportable 06/25/21 22:55 Hypochromasia Not Reportable 06/25/21 22:55 Poikilocytosis Not Reportable 06/25/21 22:55 Anisocytosis Not Reportable 06/25/21 22:55 Microcytosis Not Reportable 06/25/21 22:55 Macrocytosis Not Reportable 06/25/21 22:55 Spherocytes Not Reportable 06/25/21 22:55 Pappenheimer Bodies Not Reportable 06/25/21 22:55 Sickle Cells Not Reportable 06/25/21 22:55 Target Cells Not Reportable 06/25/21 22:55 Tear Drop Cells Not Reportable 06/25/21 22:55 Ovalocytes Not Reportable 06/25/21 22:55 Helmet Cells Not Reportable 06/25/21 22:55 [place] Bodies Not Reportable 06/25/21 22:55 [place] Rings Not Reportable 06/25/21 22:55 [place] Cells Not Reportable 06/25/21 22:55 Bite Cells Not Reportable 06/25/21 22:55 Crenated Cell Not Reportable 06/25/21 22:55 Elliptocytes Not Reportable 06/25/21 22:55 Acanthocytes (Spur) Not Reportable 06/25/21 22:55 Rouleaux Not Reportable 06/25/21 22:55 Hemoglobin C Crystals Not Reportable 06/25/21 22:55 Schistocytes Not Reportable 06/25/21 22:55 Malaria parasites Not Reportable 06/25/21 22:55 Steve Bodies Not Reportable 06/25/21 22:55 Hem Pathologist Commnt No 06/25/21 22:55 PT 12.6 Sec. (12.2-14.9) 06/25/21 13:42 INR 0.85 (0.87-1.13) L 06/25/21 13:42 APTT 31.0 Sec. (24.2-36.6) 06/25/21 13:42 Thrombin Time 15.9 Sec. (15.1-19.6) 06/22/21 07:58 Heparin Anti-Xa Level 0.29 U.I./ml (0.3-0.7) L 06/30/21 04:20 ABG pH 7.480 (7.320-7.450) H 06/27/21 05:06 POC ABG pCO2 38.0 mmHg (32.0-48.0) 06/27/21 05:06 ABG pCO2 35.8 mm Hg 06/26/21 10:00 POC ABG pO2 93.6 mmHg (83-108) 06/27/21 05:06 ABG pO2 125.4 mm Hg (80.0-90.0) H 06/26/21 10:00 POC ABG HCO3 27.7 06/27/21 05:06 ABG HCO3 25.3 mmol/L (20.0-26.0) 06/26/21 10:00 ABG O2 Saturation 98.0 (0-100) 06/27/21 05:06 ABG O2 Content 17.1 (0.0-44) 06/26/21 10:00 POC ABG Base Excess 4.0 06/27/21 05:06 ABG Base Excess 1.9 mmol/L (-2.0-3.0) 06/26/21 10:00 ABG Hemoglobin 11.9 (12.0-17.5) L 06/27/21 05:06 ABG Oxyhemoglobin 96.8 (94-98) 06/27/21 05:06 ABG Carboxyhemoglobin 1.1 % (0.0-5.0) 06/26/21 10:00 ABG Methemoglobin 0.3 (0.0-1.5) 06/27/21 05:06 ABG Sodium 123.5 mmol/L (136.0-145.0) L 06/27/21 05:06 ABG Potassium 3.7 mmol/L (3.40-4.50) 06/27/21 05:06 ABG Chloride 91.0 mmol/L (98-107) L 06/27/21 05:06 ABG Glucose 328 mg/dL (65-95) H 06/27/21 05:06 Oxyhemoglobin 97.0 % (95.0-99.0) 06/26/21 10:00 Carboxyhemoglobin 0.9 (0.5-1.5) 06/27/21 05:06 FiO2 50 % 06/26/21 10:00 FiO2 % 40.0 06/27/21 05:06 Sodium 138 mmol/L (137-145) 06/30/21 04:20 Potassium 3.9 mmol/L (3.6-5.0) 06/30/21 04:20 Chloride 101.2 mmol/L (98-107) 06/30/21 04:20 Carbon Dioxide 29 mmol/L (22-30) 06/30/21 04:20 Anion Gap 12 mmol/L 06/30/21 04:20 BUN 30 mg/dL (7-17) H 06/30/21 04:20 Creatinine 0.5 mg/dL (0.6-1.2) L 06/30/21 04:20 Estimated GFR > 60 ml/min 06/30/21 04:20 BUN/Creatinine Ratio 60 % 06/30/21 04:20 Glucose 92 mg/dL (65-100) 06/30/21 04:20 POC Glucose 84 mg/dL (70-105) 06/30/21 11:24 Hemoglobin A1c 6.6 % (4-6) H 06/23/21 05:29 Osmolality 240 Mosm/kg 06/22/21 23:24 Lactic Acid 1.60 mmol/L (0.7-2.0) 06/25/21 22:55 Uric Acid 3.2 mg/dL (3.5-7.6) L 06/23/21 05:29 Calcium 9.4 mg/dL (8.4-10.2) 06/30/21 04:20 Phosphorus 3.00 mg/dL (2.5-4.5) D 06/30/21 04:20 Magnesium 2.00 mg/dL (1.7-2.3) 06/29/21 05:13 Ferritin 102.1 ng/mL (10.0-200.0) 06/22/21 08:56 Total Bilirubin 0.30 mg/dL (0.1-1.2) 06/29/21 05:13 Direct Bilirubin < 0.2 mg/dL (0-0.2) 06/26/21 04:32 Indirect Bilirubin 0.1 mg/dL 06/26/21 04:32 AST 12 units/L (5-40) 06/29/21 05:13 ALT 9 units/L (7-56) 06/29/21 05:13 Alkaline Phosphatase 31 units/L (35-129) L 06/29/21 05:13 Lactate Dehydrogenase 220 units/L (91-180) H 06/22/21 08:56 Troponin T < 0.010 ng/mL (0.00-0.029) 06/22/21 07:58 C-Reactive Protein 5.40 mg/dL (0.00-1.30) H 06/22/21 08:56 Total Protein 3.3 g/dL (6.3-8.2) L D 06/29/21 05:13 Albumin 1.9 g/dL (3.9-5) L 06/29/21 05:13 Albumin/Globulin Ratio 1.4 % 06/29/21 05:13 Procalcitonin < 0.05 ng/mL (<0.15) 06/22/21 08:56 TSH 1.070 mlU/mL (0.270-4.200) 06/22/21 07:58 Total Cortisol 49.6 mcg/dL () 06/22/21 11:28 Arterial Blood Glucose 328 mg/dL (65-95) H 06/27/21 05:06 Arterial Blood Ionized Calcium 4.9 mg/dL (4.6-5.3) 06/27/21 05:06 Urine Color Yellow (Yellow) 06/26/21 09:48 Urine Turbidity Slightly-cloudy (Clear) 06/26/21 09:48 Urine pH 6.0 (5.0-7.0) 06/26/21 09:48 Ur Specific [place] 1.014 (1.003-1.030) 06/26/21 09:48 Urine Protein 30 mg/dl mg/dL (Negative) 06/26/21 09:48 Urine Glucose (UA) 50 mg/dL (Negative) 06/26/21 09:48 Urine Ketones 20 mg/dL (Negative) 06/26/21 09:48 Urine Blood Mod (Negative) 06/26/21 09:48 Urine Nitrite Neg (Negative) 06/26/21 09:48 Urine Bilirubin Neg (Negative) 06/26/21 09:48 Urine Urobilinogen < 2.0 mg/dL (<2.0) 06/26/21 09:48 Ur Leukocyte Esterase Mod (Negative) 06/26/21 09:48 Urine WBC (Auto) 69.0 /HPF (0.0-6.0) H 06/26/21 09:48 Urine RBC (Auto) 29.0 /HPF (0.0-6.0) 06/26/21 09:48 U Epithel Cells (Auto) 1.0 /HPF (0-13.0) 06/26/21 09:48 Urine Bacteria (Auto) 4+ /HPF (Negative) 06/26/21 09:48 Ur Transition Epith Cell 1 /HPF 06/22/21 11:47 Hyaline Casts 5 /LPF 06/22/21 11:47 Urine Mucus Few /HPF 06/26/21 09:48 Urine Yeast (Budding) 3+ /HPF 06/26/21 09:48 Urine Osmolality 571 Mosm/kg 06/22/21 11:47 Urine Sodium 25 mmol/L 06/22/21 11:47 Coronavirus (PCR) Negative (Negative) 06/22/21 Unknown Microbiology: Microbiology 06/26/21 16:06 Peripheral/Venous Blood Culture - Preliminary NO GROWTH AFTER 72 HOURS 06/26/21 16:06 Peripheral/Venous Blood Culture - Preliminary NO GROWTH AFTER 72 HOURS Martines/IV: Voiding Method Indwelling Catheter Active Medications - Current Medications Current Medications: Generic Name Dose Route Start Last Admin Trade Name Freq PRN Reason Stop Dose Admin Acetaminophen 650 mg 06/22/21 22:06/23/21 12:13 Acetaminophen 325 Mg Tab PO 650 mg Q4H PRN Administration Pain MILD(1-3)/Fever >100.5/NAVA Lipase/Protease/Amylase 1 each 06/29/21 16:20 Lipase 10,500/Protease 25,000/Amylase 43,750 (Units) Dr Castellanos FEEDTUBE PRN PRN For Clogged Feeding Tube Clopidogrel Bisulfate 75 mg 06/23/21 10:00 06/30/21 11:04 Clopidogrel 75 Mg Tab PO 75 mg DAILY JUDY Administration Docusate Sodium 100 mg 06/25/21 22:00 06/30/21 11:04 Docusate Sodium 100 Mg/10 Ml Oral Liqd PO 100 mg BID JUDY Administration Famotidine 20 mg 06/29/21 22:00 06/30/21 11:04 Famotidine 20 Mg Tab FEEDTUBE 20 mg BID JUDY Administration Heparin Sodium/Sodium Chloride 25,000 unit in 500 mls @ 26 mls/hr 06/25/21 13:00 06/30/21 11:03 Heparin/ 0.45% Nacl-25,000 Unit/500 Ml IV 1,100 units/hr TITR JUDY 22 mls/hr Administration Protocol 1,300 UNITS/HR Vasopressin 20 unit/ Sodium 101 mls @ 9.09 mls/hr 06/26/21 10:00 06/28/21 07:30 Chloride IV 0 units/min TITR JUDY 0 mls/hr Titration Protocol 0.03 UNITS/MIN Cefepime HCl 2 gm in 100 mls @ 200 mls/hr 06/26/21 10:00 06/30/21 11:02 Cefepime/Ns 2 Gm/100 Ml IV 06/30/21 22:29 200 mls/hr Q12H JUDY Administration Protocol Sodium Chloride 1,000 mls @ 50 mls/hr 06/26/21 11:00 06/30/21 01:00 Nacl 0.9% 1000 Ml IV 100 mls/hr DIRECT JUDY Administration Insulin Human Lispro 0 unit 06/26/21 12:00 06/30/21 05:56 Insulin Lispro 100 Unit/Ml SUB-Q Not Given Q6HR JUDY Protocol Metoclopramide HCl 10 mg 06/22/21 22:21 Metoclopramide 10 Mg/2 Ml Inj IV Q6H PRN Nausea And Vomiting Metoprolol Tartrate 25 mg 06/30/21 12:00 Metoprolol Tartrate 25 Mg Tab PO Q6HR JUDY Ondansetron HCl 4 mg 06/22/21 22:21 Ondansetron 4 Mg/2 Ml Inj IV Q8H PRN Nausea And Vomiting Pravastatin Sodium 40 mg 06/23/21 22:00 06/29/21 22:57 Pravastatin 40 Mg Tab PO 40 mg QHS JUDY Administration Simple Syrup 15 ml 06/29/21 16:20 Simple Syrup 15 Ml FEEDTUBE PRN PRN Hypoglycemia Simple Syrup 30 ml 06/29/21 16:20 Simple Syrup 15 Ml FEEDTUBE PRN PRN Hypoglycemia Sodium Bicarbonate 325 mg 06/29/21 16:20 Sodium Bicarbonate 325 Mg Tab FEEDTUBE PRN PRN For Clogged Feeding Tube Sodium Chloride 10 ml 06/23/21 10:00 06/30/21 11:04 Sodium Chloride 0.9% 10 Ml Flush Syringe IV 10 ml BID JUDY Administration Sodium Chloride 10 ml 06/22/21 22:21 Sodium Chloride 0.9% 10 Ml Flush Syringe IV PRN PRN LINE FLUSH Nutrition/Malnutrition Assess - Dietary Evaluation Nutrition/Malnutrition Findings: Nutrition Notes Start: 06/26/21 11:01 Freq: Status: Active Protocol: Document 06/29/21 16:12 KARYNA (Rec: 06/29/21 16:21 [id number] Nutrition Notes Initial or Follow up Reassessment Current Diagnosis Diabetes,Hypertension, Respiratory Failure Other Pertinent Diagnosis Acute encephalopathy, pneu, UTI, Hypotension, afib with RVR Current Diet TF - Osmolite 1.5 at 43ml/hr Labs/Tests BG 189 POC Glu range since last assessment: 187-301 A1C 6.6 Pertinent Medications Amiodarone gtt, Lantus, Heparin gtt, NS at 100ml/hr Height 5 ft 5 in Weight 86.183 kg [place] Body Weight (kg) 56.81 BMI 31.6 Weight Status Obese Subjective/Other Information Pt extubated this am; TF on hold per RN. Pt on BiPap support at this time. Burn Absent Trauma Absent #1 Nutrition Diagnosis Inadequate oral intake Diagnosis Progress(for reassessment Continues documentation) Is patient on ventilator? No Is Patient Ambulatory and/or Out of Bed No REE-([facility]-confined to bed) 1700.352 Kcal/Kg value to use for calculation 14 Approximate Energy Requirements Using 1207 kcal/Kg Calculation Used for Recommendations Kcal/kg Additional Notes Pro needs 2g/kg IBW: 114g/day Fluid needs 1ml/kcal Nutrition Intervention Change Diet Order: Advance diet when medically feasible Nutrition Support: Change TF formula to Vital HP at 50ml/hr if unable to advance diet. Provide 50ml water flush q4h. Kcal 1,200 Protein (gm) 105 Carbohydrates (gm) 134 Fat (gm) 28 Fluid (mL) 1,003 Fiber (gm) 0 Goal #1 Either advance diet or resume EN support to meet nutrient needs Follow-Up By: 07/01/21 Additional Comments F/U: diet advancement vs resume TF
--- NOTE | 2021-06-30 12:35 | Progress Note ---
Assessment and Plan 65 y/o female with symptomatic hyponatremia of unknown etiology 06/30/21: Will give break off bipap for at least an hour and monitor mental state hourly. In the event she requires continuous bipap again, then will discuss with patient and family () the Idea of trach, trach care and what that could mean for her in the future. Cardiology has ordered PO meds. We will attempt to give those but we had changed them back to IV given the likelihood she is going to require bipap again. Continue ICU care. 06/29/21: Will keep patient on continuous bipap at least until tomorrow morning. Try off Bipap again. If she fails will reach out to surgery as patient would likely need trach. Biggest question is why now (for CO2 retention.) Per cards echo is normal and when asked no prior history of RADHA. Will keep NPO so will nee to Continue Amio drip. Will place on scheduled lopressor since we cannot give oral meds at this time. 06/26/21: Transfer on hold. Follow up repeat ABG. Wean vasopressors for maps >65. Call renal in regards to Na since no real improvement with samsaca. Place n[place]olson. If 3% is needed again, please give through central line. 06/25/21: Transferring to floor. Suggest remote tele. Wean FiO2 as tolerated. Will continue to follow. 06/24/21: Given Na greater than 120 and symptoms continue to improve, no objection to down grade to floor status. Suggest either tele floor or remote tele. Follow up renal recs. 1. Follow up renal recs 2. Yesterday placed patient on normal saline but now that 3% is being given will discontinue 3. q6 hour Chemistries given low chloride as well 4. Frequent neuro checks given rising na 5. Guarded prognosis. CCT 31minutes. Subjective Date of service: 06/30/21 Principal diagnosis: AF w RVR Interval history: Awake and alert, while on Bipap. Remains NPO as she is on continuous bipap. Objective Vital Signs - 12hr 06/30/21 06/30/21 06/30/21 00:45 00:59 01:00 Temperature Pulse Rate 92 H 91 H 92 H Pulse Rate [ From Monitor] Respiratory 29 H 19 Rate Blood Pressure 173/73 173/73 155/70 O2 Sat by Pulse 99 99 Oximetry 06/30/21 06/30/21 06/30/21 01:15 01:31 01:45 Temperature Pulse Rate 69 73 72 Pulse Rate [ From Monitor] Respiratory 17 20 26 H Rate Blood Pressure 155/70 152/65 152/65 O2 Sat by Pulse 97 98 93 Oximetry 06/30/21 06/30/21 06/30/21 01:56 02:00 02:15 Temperature Pulse Rate 80 82 76 Pulse Rate [ From Monitor] Respiratory 17 34 H 15 Rate Blood Pressure 152/65 148/63 148/63 O2 Sat by Pulse 99 99 100 Oximetry 06/30/21 06/30/21 06/30/21 02:30 02:45 03:00 Temperature Pulse Rate 90 85 87 Pulse Rate [ From Monitor] Respiratory 24 22 22 Rate Blood Pressure 145/70 145/70 155/63 O2 Sat by Pulse 100 100 100 Oximetry 06/30/21 06/30/21 06/30/21 03:15 03:30 03:45 Temperature Pulse Rate 93 H 95 H 93 H Pulse Rate [ From Monitor] Respiratory 23 17 27 H Rate Blood Pressure 155/63 159/64 159/64 O2 Sat by Pulse 100 99 96 Oximetry 06/30/21 06/30/21 06/30/21 04:00 04:15 04:30 Temperature 98.2 F Pulse Rate 99 H 96 H 88 Pulse Rate [ 95 H From Monitor] Respiratory 25 H 26 H 16 Rate Blood Pressure 157/72 157/72 156/70 O2 Sat by Pulse 97 99 99 Oximetry 06/30/21 06/30/21 06/30/21 04:45 05:00 05:15 Temperature Pulse Rate 91 H 176 H Pulse Rate [ From Monitor] Respiratory 23 36 H 30 H Rate Blood Pressure 156/70 156/66 156/66 O2 Sat by Pulse 97 99 98 Oximetry 06/30/21 06/30/21 06/30/21 05:31 05:44 05:45 Temperature Pulse Rate 87 94 H 78 Pulse Rate [ From Monitor] Respiratory 19 17 22 Rate Blood Pressure 130/55 130/55 130/55 O2 Sat by Pulse 95 98 99 Oximetry 06/30/21 06/30/21 06/30/21 05:55 06:00 06:15 Temperature Pulse Rate 87 96 H 64 Pulse Rate [ From Monitor] Respiratory 35 H 19 Rate Blood Pressure 130/55 146/61 146/61 O2 Sat by Pulse 100 95 Oximetry 06/30/21 06/30/21 06/30/21 06:31 06:45 07:00 Temperature Pulse Rate 67 69 72 Pulse Rate [ From Monitor] Respiratory 15 15 21 Rate Blood Pressure 131/45 131/45 131/58 O2 Sat by Pulse 100 96 99 Oximetry 06/30/21 06/30/21 06/30/21 07:15 07:31 07:45 Temperature Pulse Rate 78 67 83 Pulse Rate [ From Monitor] Respiratory 13 13 19 Rate Blood Pressure 131/58 111/43 111/43 O2 Sat by Pulse 100 100 100 Oximetry 06/30/21 06/30/21 06/30/21 08:00 08:01 08:15 Temperature 98.4 F Pulse Rate 85 97 H 85 Pulse Rate [ From Monitor] Respiratory 22 21 Rate Blood Pressure 104/47 104/47 O2 Sat by Pulse 97 98 100 Oximetry 06/30/21 06/30/21 06/30/21 08:31 08:45 09:00 Temperature Pulse Rate 74 81 87 Pulse Rate [ From Monitor] Respiratory 18 21 15 Rate Blood Pressure 145/60 145/60 143/62 O2 Sat by Pulse 100 100 100 Oximetry 06/30/21 06/30/21 06/30/21 09:15 09:31 09:45 Temperature Pulse Rate 63 61 69 Pulse Rate [ From Monitor] Respiratory 16 17 19 Rate Blood Pressure 143/62 135/48 135/48 O2 Sat by Pulse 98 99 98 Oximetry 06/30/21 06/30/21 06/30/21 09:50 10:01 10:15 Temperature Pulse Rate 96 H 93 H 89 Pulse Rate [ From Monitor] Respiratory 13 17 22 Rate Blood Pressure 121/70 164/71 164/71 O2 Sat by Pulse 100 100 100 Oximetry 06/30/21 06/30/21 06/30/21 10:30 10:45 11:01 Temperature Pulse Rate 78 85 85 Pulse Rate [ From Monitor] Respiratory 17 12 13 Rate Blood Pressure 121/70 121/70 121/70 O2 Sat by Pulse 96 97 100 Oximetry 06/30/21 06/30/21 06/30/21 11:15 11:30 11:45 Temperature Pulse Rate 66 75 83 Pulse Rate [ From Monitor] Respiratory 12 15 13 Rate Blood Pressure 139/92 158/67 158/67 O2 Sat by Pulse 100 100 100 Oximetry 06/30/21 06/30/21 12:00 12:15 Temperature Pulse Rate 73 86 Pulse Rate [ From Monitor] Respiratory 14 18 Rate Blood Pressure 174/68 174/68 O2 Sat by Pulse 100 98 Oximetry Constitutional: other (critically ill on ventilator) Eyes: non-icteric Neck: supple Effort: normal Ascultation: Bilateral: other (coarse BS bilaterally) Cardiovascular: regular rate and rhythm (ir/ir, no mrg) Gastrointestinal: normoactive bowel sounds, soft, non-distended Integumentary: normal Extremities: no cyanosis, no edema, pink and warm Neurologic: normal mental status, non-focal exam, pupils equal and round, CN II- XII normal Psychiatric: mood appropriate, affect normal CBC and BMP: 06/30/21 04:20 06/30/21 04:20 ABG, PT/INR, D-dimer: ABG ABG pH 7.480 (7.320-7.450) H 06/27/21 05:06 POC ABG pCO2 38.0 mmHg (32.0-48.0) 06/27/21 05:06 ABG pCO2 35.8 mm Hg 06/26/21 10:00 POC ABG pO2 93.6 mmHg (83-108) 06/27/21 05:06 ABG pO2 125.4 mm Hg (80.0-90.0) H 06/26/21 10:00 POC ABG HCO3 27.7 06/27/21 05:06 ABG O2 Saturation 98.0 (0-100) 06/27/21 05:06 PT/INR, D-dimer PT 12.6 Sec. (12.2-14.9) 06/25/21 13:42 INR 0.85 (0.87-1.13) L 06/25/21 13:42 Abnormal lab findings: Abnormal Labs 06/22/21 06/22/21 06/22/21 07:58 07:58 07:58 WBC 13.0 H RBC Hgb MCHC 35 H Lymph % (Auto) 6.3 L Perry % (Auto) 7.4 H Lymph # (Auto) 0.8 L Perry # (Auto) 1.0 H Seg Neutrophils % 85.5 H Seg Neuts % (Manual) Lymphocytes % (Manual) Seg Neutrophils # 11.1 H Seg Neutrophils # Man Lymphocytes # (Manual) PT 11.8 L INR 0.78 L Heparin Anti-Xa Level ABG pH POC ABG pCO2 ABG pO2 ABG HCO3 ABG O2 Saturation ABG Base Excess ABG Hemoglobin ABG Oxyhemoglobin ABG Sodium ABG Chloride ABG Glucose Sodium 107 L* Potassium 2.7 L* Chloride 60.0 L Carbon Dioxide 32 H BUN Creatinine 0.5 L Glucose 177 H POC Glucose Hemoglobin A1c Lactic Acid Uric Acid Calcium Phosphorus Magnesium Alkaline Phosphatase Lactate Dehydrogenase C-Reactive Protein Total Protein Albumin Arterial Blood Glucose Urine WBC (Auto) 06/22/21 06/22/21 06/22/21 08:56 08:56 08:56 WBC RBC Hgb MCHC Lymph % (Auto) Perry % (Auto) Lymph # (Auto) Perry # (Auto) Seg Neutrophils % Seg Neuts % (Manual) Lymphocytes % (Manual) Seg Neutrophils # Seg Neutrophils # Man Lymphocytes # (Manual) PT INR Heparin Anti-Xa Level ABG pH POC ABG pCO2 ABG pO2 ABG HCO3 ABG O2 Saturation ABG Base Excess ABG Hemoglobin ABG Oxyhemoglobin ABG Sodium ABG Chloride ABG Glucose Sodium 104 L* Potassium 3.2 L Chloride 60.0 L Carbon Dioxide BUN Creatinine 0.4 L Glucose 179 H 181 H POC Glucose Hemoglobin A1c Lactic Acid 2.10 H* Uric Acid Calcium Phosphorus Magnesium Alkaline Phosphatase Lactate Dehydrogenase 220 H C-Reactive Protein 5.40 H Total Protein Albumin Arterial Blood Glucose Urine WBC (Auto) 06/22/21 06/22/21 06/22/21 11:47 14:20 18:19 WBC RBC Hgb MCHC Lymph % (Auto) Perry % (Auto) Lymph # (Auto) Perry # (Auto) Seg Neutrophils % Seg Neuts % (Manual) Lymphocytes % (Manual) Seg Neutrophils # Seg Neutrophils # Man Lymphocytes # (Manual) PT INR Heparin Anti-Xa Level ABG pH POC ABG pCO2 ABG pO2 ABG HCO3 ABG O2 Saturation ABG Base Excess ABG Hemoglobin ABG Oxyhemoglobin ABG Sodium ABG Chloride ABG Glucose Sodium 112 L* D 112 L* Potassium 2.7 L* 2.7 L* Chloride 65.2 L 65.8 L Carbon Dioxide 32 H 31 H BUN Creatinine 0.4 L 0.3 L Glucose 119 H POC Glucose Hemoglobin A1c Lactic Acid Uric Acid Calcium Phosphorus Magnesium Alkaline Phosphatase Lactate Dehydrogenase C-Reactive Protein Total Protein Albumin Arterial Blood Glucose Urine WBC (Auto) 11.0 H 06/23/21 06/23/21 06/23/21 05:29 05:29 05:29 WBC 12.4 H RBC Hgb MCHC Lymph % (Auto) 5.8 L Perry % (Auto) Lymph # (Auto) 0.7 L Perry # (Auto) 0.9 H Seg Neutrophils % 87.1 H Seg Neuts % (Manual) Lymphocytes % (Manual) Seg Neutrophils # 10.8 H Seg Neutrophils # Man Lymphocytes # (Manual) PT INR Heparin Anti-Xa Level ABG pH POC ABG pCO2 ABG pO2 ABG HCO3 ABG O2 Saturation ABG Base Excess ABG Hemoglobin ABG Oxyhemoglobin ABG Sodium ABG Chloride ABG Glucose Sodium 112 L* Potassium 2.6 L* Chloride 67.5 L Carbon Dioxide 33 H BUN Creatinine 0.4 L Glucose POC Glucose Hemoglobin A1c 6.6 H Lactic Acid Uric Acid 3.2 L Calcium Phosphorus Magnesium Alkaline Phosphatase Lactate Dehydrogenase C-Reactive Protein Total Protein Albumin Arterial Blood Glucose Urine WBC (Auto) 06/23/21 06/23/21 06/23/21 05:29 12:11 17:43 WBC RBC Hgb MCHC Lymph % (Auto) Perry % (Auto) Lymph # (Auto) Perry # (Auto) Seg Neutrophils % Seg Neuts % (Manual) Lymphocytes % (Manual) Seg Neutrophils # Seg Neutrophils # Man Lymphocytes # (Manual) PT INR Heparin Anti-Xa Level ABG pH POC ABG pCO2 ABG pO2 ABG HCO3 ABG O2 Saturation ABG Base Excess ABG Hemoglobin ABG Oxyhemoglobin ABG Sodium ABG Chloride ABG Glucose Sodium 113 L* 117 L* Potassium 2.6 L* Chloride 69.7 L 74.9 L Carbon Dioxide BUN Creatinine 0.4 L 0.3 L Glucose 106 H 125 H POC Glucose Hemoglobin A1c Lactic Acid Uric Acid Calcium Phosphorus Magnesium 1.50 L Alkaline Phosphatase Lactate Dehydrogenase C-Reactive Protein Total Protein Albumin Arterial Blood Glucose Urine WBC (Auto) 06/24/21 06/24/21 06/24/21 00:43 00:45 05:33 WBC RBC Hgb MCHC Lymph % (Auto) Perry % (Auto) Lymph # (Auto) Perry # (Auto) Seg Neutrophils % Seg Neuts % (Manual) Lymphocytes % (Manual) Seg Neutrophils # Seg Neutrophils # Man Lymphocytes # (Manual) PT INR Heparin Anti-Xa Level ABG pH POC ABG pCO2 ABG pO2 ABG HCO3 ABG O2 Saturation ABG Base Excess ABG Hemoglobin ABG Oxyhemoglobin ABG Sodium ABG Chloride ABG Glucose Sodium 119 L* 122 L Potassium Chloride 79.6 L 80.2 L Carbon Dioxide 32 H 31 H BUN Creatinine 0.4 L 0.3 L Glucose 116 H 143 H POC Glucose 117 H Hemoglobin A1c Lactic Acid Uric Acid Calcium Phosphorus Magnesium Alkaline Phosphatase Lactate Dehydrogenase C-Reactive Protein Total Protein Albumin Arterial Blood Glucose Urine WBC (Auto) 06/24/21 06/24/21 06/24/21 05:33 06:11 16:25 WBC 12.0 H RBC Hgb MCHC Lymph % (Auto) Perry % (Auto) Lymph # (Auto) Perry # (Auto) Seg Neutrophils % Seg Neuts % (Manual) 95.0 H Lymphocytes % (Manual) 2.0 L Seg Neutrophils # Seg Neutrophils # Man 11.4 H Lymphocytes # (Manual) 0.2 L PT INR Heparin Anti-Xa Level ABG pH POC ABG pCO2 ABG pO2 ABG HCO3 ABG O2 Saturation ABG Base Excess ABG Hemoglobin ABG Oxyhemoglobin ABG Sodium ABG Chloride ABG Glucose Sodium 122 L Potassium Chloride 78.9 L Carbon Dioxide 32 H BUN Creatinine 0.5 L D Glucose 141 H POC Glucose 141 H Hemoglobin A1c Lactic Acid Uric Acid Calcium Phosphorus Magnesium Alkaline Phosphatase Lactate Dehydrogenase C-Reactive Protein Total Protein Albumin Arterial Blood Glucose Urine WBC (Auto) 06/24/21 06/24/21 06/25/21 18:16 23:49 00:18 WBC RBC Hgb MCHC Lymph % (Auto) Perry % (Auto) Lymph # (Auto) Perry # (Auto) Seg Neutrophils % Seg Neuts % (Manual) Lymphocytes % (Manual) Seg Neutrophils # Seg Neutrophils # Man Lymphocytes # (Manual) PT INR Heparin Anti-Xa Level ABG pH POC ABG pCO2 ABG pO2 ABG HCO3 ABG O2 Saturation ABG Base Excess ABG Hemoglobin ABG Oxyhemoglobin ABG Sodium ABG Chloride ABG Glucose Sodium 123 L 122 L Potassium Chloride Carbon Dioxide BUN Creatinine Glucose POC Glucose 162 H Hemoglobin A1c Lactic Acid Uric Acid Calcium Phosphorus Magnesium Alkaline Phosphatase Lactate Dehydrogenase C-Reactive Protein Total Protein Albumin Arterial Blood Glucose Urine WBC (Auto) 06/25/21 06/25/21 06/25/21 03:06 06:15 10:19 WBC RBC Hgb MCHC Lymph % (Auto) Perry % (Auto) Lymph # (Auto) Perry # (Auto) Seg Neutrophils % Seg Neuts % (Manual) Lymphocytes % (Manual) Seg Neutrophils # Seg Neutrophils # Man Lymphocytes # (Manual) PT INR Heparin Anti-Xa Level ABG pH POC ABG pCO2 ABG pO2 ABG HCO3 ABG O2 Saturation ABG Base Excess ABG Hemoglobin ABG Oxyhemoglobin ABG Sodium ABG Chloride ABG Glucose Sodium Potassium Chloride Carbon Dioxide BUN Creatinine Glucose POC Glucose 151 H 149 H 152 H Hemoglobin A1c Lactic Acid Uric Acid Calcium Phosphorus Magnesium Alkaline Phosphatase Lactate Dehydrogenase C-Reactive Protein Total Protein Albumin Arterial Blood Glucose Urine WBC (Auto) 06/25/21 06/25/21 06/25/21 13:42 13:42 15:13 WBC RBC Hgb MCHC Lymph % (Auto) Perry % (Auto) Lymph # (Auto) Perry # (Auto) Seg Neutrophils % Seg Neuts % (Manual) Lymphocytes % (Manual) Seg Neutrophils # Seg Neutrophils # Man Lymphocytes # (Manual) PT INR 0.85 L Heparin Anti-Xa Level < 0.10 L ABG pH POC ABG pCO2 ABG pO2 ABG HCO3 ABG O2 Saturation ABG Base Excess ABG Hemoglobin ABG Oxyhemoglobin ABG Sodium ABG Chloride ABG Glucose Sodium 123 L Potassium Chloride 78.5 L Carbon Dioxide 32 H BUN 19 H Creatinine Glucose 193 H POC Glucose Hemoglobin A1c Lactic Acid Uric Acid Calcium Phosphorus Magnesium Alkaline Phosphatase Lactate Dehydrogenase C-Reactive Protein Total Protein Albumin Arterial Blood Glucose Urine WBC (Auto) 06/25/21 06/25/21 06/25/21 15:21 19:49 21:21 WBC RBC Hgb MCHC Lymph % (Auto) Perry % (Auto) Lymph # (Auto) Perry # (Auto) Seg Neutrophils % Seg Neuts % (Manual) Lymphocytes % (Manual) Seg Neutrophils # Seg Neutrophils # Man Lymphocytes # (Manual) PT INR Heparin Anti-Xa Level ABG pH 7.086 L POC ABG pCO2 104.9 H ABG pO2 ABG HCO3 ABG O2 Saturation ABG Base Excess ABG Hemoglobin ABG Oxyhemoglobin 92.4 L ABG Sodium 123.4 L ABG Chloride 81.0 L ABG Glucose 225 H Sodium Potassium Chloride Carbon Dioxide BUN Creatinine Glucose POC Glucose 221 H 194 H Hemoglobin A1c Lactic Acid Uric Acid Calcium Phosphorus Magnesium Alkaline Phosphatase Lactate Dehydrogenase C-Reactive Protein Total Protein Albumin Arterial Blood Glucose 225 H Urine WBC (Auto) 06/25/21 06/25/21 06/26/21 22:55 22:55 00:35 WBC 14.8 H RBC Hgb MCHC Lymph % (Auto) Perry % (Auto) Lymph # (Auto) Perry # (Auto) Seg Neutrophils % Seg Neuts % (Manual) 91.0 H Lymphocytes % (Manual) 6.0 L Seg Neutrophils # Seg Neutrophils # Man 13.5 H Lymphocytes # (Manual) 0.9 L PT INR Heparin Anti-Xa Level ABG pH POC ABG pCO2 ABG pO2 439.6 H ABG HCO3 30.0 H ABG O2 Saturation 99.6 H ABG Base Excess 3.3 H ABG Hemoglobin ABG Oxyhemoglobin ABG Sodium ABG Chloride ABG Glucose Sodium 124 L Potassium Chloride 82.9 L Carbon Dioxide BUN 22 H Creatinine Glucose 226 H POC Glucose Hemoglobin A1c Lactic Acid Uric Acid Calcium 8.2 L Phosphorus 4.70 H Magnesium Alkaline Phosphatase Lactate Dehydrogenase C-Reactive Protein Total Protein Albumin Arterial Blood Glucose Urine WBC (Auto) 06/26/21 06/26/21 06/26/21 02:58 04:32 05:53 WBC RBC Hgb MCHC Lymph % (Auto) Perry % (Auto) Lymph # (Auto) Perry # (Auto) Seg Neutrophils % Seg Neuts % (Manual) Lymphocytes % (Manual) Seg Neutrophils # Seg Neutrophils # Man Lymphocytes # (Manual) PT INR Heparin Anti-Xa Level ABG pH POC ABG pCO2 ABG pO2 ABG HCO3 ABG O2 Saturation ABG Base Excess ABG Hemoglobin ABG Oxyhemoglobin ABG Sodium ABG Chloride ABG Glucose Sodium 123 L Potassium Chloride 79.2 L Carbon Dioxide BUN 26 H Creatinine Glucose 202 H POC Glucose 227 H 187 H Hemoglobin A1c Lactic Acid Uric Acid Calcium Phosphorus Magnesium Alkaline Phosphatase Lactate Dehydrogenase C-Reactive Protein Total Protein 5.9 L Albumin 2.8 L Arterial Blood Glucose Urine WBC (Auto) 06/26/21 06/26/21 06/26/21 09:14 09:48 10:00 WBC RBC Hgb MCHC Lymph % (Auto) Perry % (Auto) Lymph # (Auto) Perry # (Auto) Seg Neutrophils % Seg Neuts % (Manual) Lymphocytes % (Manual) Seg Neutrophils # Seg Neutrophils # Man Lymphocytes # (Manual) PT INR Heparin Anti-Xa Level ABG pH 7.467 H POC ABG pCO2 ABG pO2 125.4 H ABG HCO3 ABG O2 Saturation ABG Base Excess ABG Hemoglobin ABG Oxyhemoglobin ABG Sodium ABG Chloride ABG Glucose Sodium Potassium Chloride Carbon Dioxide BUN Creatinine Glucose POC Glucose 194 H Hemoglobin A1c Lactic Acid Uric Acid Calcium Phosphorus Magnesium Alkaline Phosphatase Lactate Dehydrogenase C-Reactive Protein Total Protein Albumin Arterial Blood Glucose Urine WBC (Auto) 69.0 H 06/26/21 06/26/21 06/26/21 16:06 22:34 23:32 WBC RBC Hgb MCHC Lymph % (Auto) Perry % (Auto) Lymph # (Auto) Perry # (Auto) Seg Neutrophils % Seg Neuts % (Manual) Lymphocytes % (Manual) Seg Neutrophils # Seg Neutrophils # Man Lymphocytes # (Manual) PT INR Heparin Anti-Xa Level ABG pH POC ABG pCO2 ABG pO2 ABG HCO3 ABG O2 Saturation ABG Base Excess ABG Hemoglobin ABG Oxyhemoglobin ABG Sodium ABG Chloride ABG Glucose Sodium 128 L 126 L Potassium Chloride 88.6 L 89.2 L Carbon Dioxide BUN 32 H 34 H Creatinine Glucose 161 H 257 H POC Glucose 231 H Hemoglobin A1c Lactic Acid Uric Acid Calcium Phosphorus Magnesium Alkaline Phosphatase Lactate Dehydrogenase C-Reactive Protein Total Protein Albumin Arterial Blood Glucose Urine WBC (Auto) 06/27/21 06/27/21 06/27/21 05:06 06:00 06:00 WBC 12.0 H RBC Hgb MCHC Lymph % (Auto) Perry % (Auto) Lymph # (Auto) Perry # (Auto) Seg Neutrophils % Seg Neuts % (Manual) Lymphocytes % (Manual) Seg Neutrophils # Seg Neutrophils # Man Lymphocytes # (Manual) PT INR Heparin Anti-Xa Level ABG pH 7.480 H POC ABG pCO2 ABG pO2 ABG HCO3 ABG O2 Saturation ABG Base Excess ABG Hemoglobin 11.9 L ABG Oxyhemoglobin ABG Sodium 123.5 L ABG Chloride 91.0 L ABG Glucose 328 H Sodium 128 L Potassium Chloride 91.4 L Carbon Dioxide BUN 36 H Creatinine Glucose 346 H POC Glucose Hemoglobin A1c Lactic Acid Uric Acid Calcium Phosphorus Magnesium Alkaline Phosphatase Lactate Dehydrogenase C-Reactive Protein Total Protein Albumin Arterial Blood Glucose 328 H Urine WBC (Auto) 06/27/21 06/27/21 06/27/21 11:41 17:06 23:36 WBC RBC Hgb MCHC Lymph % (Auto) Perry % (Auto) Lymph # (Auto) Perry # (Auto) Seg Neutrophils % Seg Neuts % (Manual) Lymphocytes % (Manual) Seg Neutrophils # Seg Neutrophils # Man Lymphocytes # (Manual) PT INR Heparin Anti-Xa Level ABG pH POC ABG pCO2 ABG pO2 ABG HCO3 ABG O2 Saturation ABG Base Excess ABG Hemoglobin ABG Oxyhemoglobin ABG Sodium ABG Chloride ABG Glucose Sodium Potassium Chloride Carbon Dioxide BUN Creatinine Glucose POC Glucose 259 H 301 H 215 H Hemoglobin A1c Lactic Acid Uric Acid Calcium Phosphorus Magnesium Alkaline Phosphatase Lactate Dehydrogenase C-Reactive Protein Total Protein Albumin Arterial Blood Glucose Urine WBC (Auto) 06/28/21 06/28/21 06/28/21 03:00 03:00 03:00 WBC 14.9 H RBC 3.46 L Hgb MCHC Lymph % (Auto) 2.8 L Perry % (Auto) 7.5 H Lymph # (Auto) 0.4 L Perry # (Auto) 1.1 H Seg Neutrophils % 89.6 H Seg Neuts % (Manual) Lymphocytes % (Manual) Seg Neutrophils # 13.4 H Seg Neutrophils # Man Lymphocytes # (Manual) PT INR Heparin Anti-Xa Level 0.27 L ABG pH POC ABG pCO2 ABG pO2 ABG HCO3 ABG O2 Saturation ABG Base Excess ABG Hemoglobin ABG Oxyhemoglobin ABG Sodium ABG Chloride ABG Glucose Sodium 134 L Potassium Chloride 91.1 L Carbon Dioxide BUN 35 H Creatinine Glucose 235 H POC Glucose Hemoglobin A1c Lactic Acid Uric Acid Calcium Phosphorus 1.10 L Magnesium Alkaline Phosphatase Lactate Dehydrogenase C-Reactive Protein Total Protein Albumin Arterial Blood Glucose Urine WBC (Auto) 06/28/21 06/28/21 06/28/21 05:13 16:53 23:32 WBC RBC Hgb MCHC Lymph % (Auto) Perry % (Auto) Lymph # (Auto) Perry # (Auto) Seg Neutrophils % Seg Neuts % (Manual) Lymphocytes % (Manual) Seg Neutrophils # Seg Neutrophils # Man Lymphocytes # (Manual) PT INR Heparin Anti-Xa Level ABG pH POC ABG pCO2 ABG pO2 ABG HCO3 ABG O2 Saturation ABG Base Excess ABG Hemoglobin ABG Oxyhemoglobin ABG Sodium ABG Chloride ABG Glucose Sodium Potassium Chloride Carbon Dioxide BUN Creatinine Glucose POC Glucose 241 H 213 H 236 H Hemoglobin A1c Lactic Acid Uric Acid Calcium Phosphorus Magnesium Alkaline Phosphatase Lactate Dehydrogenase C-Reactive Protein Total Protein Albumin Arterial Blood Glucose Urine WBC (Auto) 06/29/21 06/29/21 06/29/21 05:13 05:13 06:00 WBC 12.7 H RBC 3.36 L Hgb 10.0 L MCHC Lymph % (Auto) 9.5 L Perry % (Auto) 8.6 H Lymph # (Auto) Perry # (Auto) 1.1 H Seg Neutrophils % 80.4 H Seg Neuts % (Manual) Lymphocytes % (Manual) Seg Neutrophils # 10.2 H Seg Neutrophils # Man Lymphocytes # (Manual) PT INR Heparin Anti-Xa Level 0.13 L ABG pH POC ABG pCO2 ABG pO2 ABG HCO3 ABG O2 Saturation ABG Base Excess ABG Hemoglobin ABG Oxyhemoglobin ABG Sodium ABG Chloride ABG Glucose Sodium 133 L Potassium Chloride Carbon Dioxide BUN 34 H Creatinine 0.5 L Glucose 186 H POC Glucose Hemoglobin A1c Lactic Acid Uric Acid Calcium Phosphorus 2.20 L D Magnesium Alkaline Phosphatase 31 L Lactate Dehydrogenase C-Reactive Protein Total Protein 3.3 L D Albumin 1.9 L Arterial Blood Glucose Urine WBC (Auto) 06/29/21 06/29/21 06/29/21 06:00 06:00 12:02 WBC RBC Hgb MCHC Lymph % (Auto) Perry % (Auto) Lymph # (Auto) Perry # (Auto) Seg Neutrophils % Seg Neuts % (Manual) Lymphocytes % (Manual) Seg Neutrophils # Seg Neutrophils # Man Lymphocytes # (Manual) PT INR Heparin Anti-Xa Level 0.22 L ABG pH POC ABG pCO2 ABG pO2 ABG HCO3 ABG O2 Saturation ABG Base Excess ABG Hemoglobin ABG Oxyhemoglobin ABG Sodium ABG Chloride ABG Glucose Sodium 134 L Potassium Chloride 97.8 L Carbon Dioxide BUN 33 H Creatinine Glucose 189 H POC Glucose 249 H Hemoglobin A1c Lactic Acid Uric Acid Calcium Phosphorus Magnesium Alkaline Phosphatase Lactate Dehydrogenase C-Reactive Protein Total Protein Albumin Arterial Blood Glucose Urine WBC (Auto) 06/29/21 06/30/21 06/30/21 17:20 04:20 04:20 WBC 11.9 H RBC 3.37 L Hgb MCHC Lymph % (Auto) 8.6 L Perry % (Auto) 8.3 H Lymph # (Auto) 1.0 L Perry # (Auto) 1.0 H Seg Neutrophils % 82.6 H Seg Neuts % (Manual) Lymphocytes % (Manual) Seg Neutrophils # 9.8 H Seg Neutrophils # Man Lymphocytes # (Manual) PT INR Heparin Anti-Xa Level ABG pH POC ABG pCO2 ABG pO2 ABG HCO3 ABG O2 Saturation ABG Base Excess ABG Hemoglobin ABG Oxyhemoglobin ABG Sodium ABG Chloride ABG Glucose Sodium Potassium Chloride Carbon Dioxide BUN 30 H Creatinine 0.5 L Glucose POC Glucose 172 H Hemoglobin A1c Lactic Acid Uric Acid Calcium Phosphorus Magnesium Alkaline Phosphatase Lactate Dehydrogenase C-Reactive Protein Total Protein Albumin Arterial Blood Glucose Urine WBC (Auto) 06/30/21 04:20 WBC RBC Hgb MCHC Lymph % (Auto) Perry % (Auto) Lymph # (Auto) Perry # (Auto) Seg Neutrophils % Seg Neuts % (Manual) Lymphocytes % (Manual) Seg Neutrophils # Seg Neutrophils # Man Lymphocytes # (Manual) PT INR Heparin Anti-Xa Level 0.29 L ABG pH POC ABG pCO2 ABG pO2 ABG HCO3 ABG O2 Saturation ABG Base Excess ABG Hemoglobin ABG Oxyhemoglobin ABG Sodium ABG Chloride ABG Glucose Sodium Potassium Chloride Carbon Dioxide BUN Creatinine Glucose POC Glucose Hemoglobin A1c Lactic Acid Uric Acid Calcium Phosphorus Magnesium Alkaline Phosphatase Lactate Dehydrogenase C-Reactive Protein Total Protein Albumin Arterial Blood Glucose Urine WBC (Auto) Allied health notes reviewed: nursing
[2021-06-30] MEDS: METOPROLOL TARTRATE 25 MG TAB PO SCH ×3 (14:14→23:00)
[2021-06-30] MEDS: PRAVASTATIN 40 MG TAB PO SCH (23:00)
[2021-07-01] MEDS: INSULIN LISPRO 100 UNIT/ML SUB-Q SCH ×4 (03:01→17:08)
[2021-07-01 05:54] LABS: Hemoglobin 10.3 gm/dl (10.1-14.3); Mean Corpuscular HGB Conc 31 % (30-34); Mean Corpuscular Volume 92 fl (79-97); Platelet Count 389 K/mm3 (140-440); Red Blood Count 3.57 M/mm3 (3.65-5.03)
[2021-07-01 06:06] LABS: Blood Urea Nitrogen 25 mg/dL (7-17); Hemolysis Index 4
[2021-07-01] MEDS: METOPROLOL TARTRATE 25 MG TAB PO SCH ×3 (06:18→21:59)
[2021-07-01 06:26] LABS: BUN/Creatinine Ratio 63
[2021-07-01] MEDS ORDERED: DEXTROSE 50% IN WATER (25GM) 50 ML VIAL IV STA (07:36)
[2021-07-01] MEDS: DOCUSATE SODIUM 100 MG/10 ML ORAL LIQD PO SCH ×2 (09:41→21:57)
[2021-07-01] MEDS: HEPARIN/ 0.45% NACL DRIP 25,000 UNIT/500 ML BAG IV SCH (09:42)
[2021-07-01] MEDS: CLOPIDOGREL 75 MG TAB PO SCH (09:42)
[2021-07-01] MEDS: SODIUM CHLORIDE 0.9% 1000 ML 1,000 ML IV SCH (09:42)
[2021-07-01] MEDS: FAMOTIDINE 20 MG TAB FEEDTUBE SCH ×2 (09:42→21:59)
[2021-07-01] MEDS ORDERED: METOPROLOL TARTRATE 25 MG TAB PO SCH (12:00)
[2021-07-01] MEDS: LISINOPRIL 20 MG TAB PO SCH (13:09)
[2021-07-01] MEDS: ACETAMINOPHEN 325 MG TAB PO PRN (13:10)
--- NOTE | 2021-07-01 14:42 | Progress Note ---
Assessment and Plan 65 y/o female with symptomatic hyponatremia of unknown etiology 07/01/21: Will need NIV for night time and PRN use at home. Will continue bipap QHS and PRN here. Ok with transfer to step down for at least 24 hours and then to floor. Rate control per cards. Ok to restart feeds as well. Will continue to follow. CM to further investigate funding 06/30/21: Will give break off bipap for at least an hour and monitor mental state hourly. In the event she requires continuous bipap again, then will discuss with patient and family () the Idea of trach, trach care and what that could mean for her in the future. Cardiology has ordered PO meds. We will attempt to give those but we had changed them back to IV given the likelihood she is going to require bipap again. Continue ICU care. 06/29/21: Will keep patient on continuous bipap at least until tomorrow morning. Try off Bipap again. If she fails will reach out to surgery as patient would likely need trach. Biggest question is why now (for CO2 retention.) Per cards echo is normal and when asked no prior history of RADHA. Will keep NPO so will nee to Continue Amio drip. Will place on scheduled lopressor since we cannot give oral meds at this time. 06/26/21: Transfer on hold. Follow up repeat ABG. Wean vasopressors for maps >65. Call renal in regards to Na since no real improvement with samsaca. Place [place]. If 3% is needed again, please give through central line. 06/25/21: Transferring to floor. Suggest remote tele. Wean FiO2 as tolerated. Will continue to follow. 06/24/21: Given Na greater than 120 and symptoms continue to improve, no obj ection to down grade to floor status. Suggest either tele floor or remote tele. Follow up renal recs. 1. Follow up renal recs 2. Yesterday placed patient on normal saline but now that 3% is being given will discontinue 3. q6 hour Chemistries given low chloride as well 4. Frequent neuro checks given rising na 5. Guarded prognosis. CCT 31minutes. Subjective Date of service: 07/01/21 Principal diagnosis: AF w RVR Interval history: Awake and alert. Was off bipap all day yesterday but wore machine all night. Looks and feels better this am. Objective Vital Signs - 12hr 07/01/21 07/01/21 07/01/21 02:46 03:00 03:16 Temperature Pulse Rate 83 91 H 83 Pulse Rate [ From Monitor] Respiratory 18 16 18 Rate Blood Pressure 167/74 167/84 167/84 O2 Sat by Pulse 98 100 97 Oximetry 07/01/21 07/01/21 07/01/21 03:30 03:46 04:00 Temperature 98.8 F Pulse Rate 81 98 H 82 Pulse Rate [ 82 From Monitor] Respiratory 19 17 17 Rate Blood Pressure 167/84 135/61 170/82 O2 Sat by Pulse 99 99 99 Oximetry 07/01/21 07/01/21 07/01/21 04:16 04:30 04:46 Temperature Pulse Rate 80 102 H 95 H Pulse Rate [ From Monitor] Respiratory 19 21 21 Rate Blood Pressure 170/82 183/82 183/82 O2 Sat by Pulse 99 100 99 Oximetry 07/01/21 07/01/21 07/01/21 04:50 05:00 05:16 Temperature Pulse Rate 87 97 H Pulse Rate [ From Monitor] Respiratory 20 19 22 Rate Blood Pressure 183/82 157/25 O2 Sat by Pulse 100 98 98 Oximetry 07/01/21 07/01/21 07/01/21 05:30 05:46 06:00 Temperature Pulse Rate 94 H 93 H 96 H Pulse Rate [ From Monitor] Respiratory 24 17 22 Rate Blood Pressure 180/80 180/80 180/80 O2 Sat by Pulse 98 99 100 Oximetry 07/01/21 07/01/21 07/01/21 06:16 06:18 06:30 Temperature Pulse Rate 90 91 H 95 H Pulse Rate [ From Monitor] Respiratory 13 16 Rate Blood Pressure 188/68 188/68 163/81 O2 Sat by Pulse 99 98 Oximetry 07/01/21 07/01/21 07/01/21 06:46 07:00 07:16 Temperature Pulse Rate 93 H 79 92 H Pulse Rate [ From Monitor] Respiratory 21 12 18 Rate Blood Pressure 163/81 163/81 141/74 O2 Sat by Pulse 99 98 98 Oximetry 07/01/21 07/01/21 07/01/21 07:30 07:46 07:54 Temperature Pulse Rate 88 85 82 Pulse Rate [ From Monitor] Respiratory 21 23 Rate Blood Pressure 141/74 166/81 O2 Sat by Pulse 99 99 Oximetry 07/01/21 07/01/21 07/01/21 07:55 08:00 08:16 Temperature 98.2 F Pulse Rate 84 78 Pulse Rate [ 82 From Monitor] Respiratory 18 15 13 Rate Blood Pressure 175/83 175/83 O2 Sat by Pulse 99 99 99 Oximetry 07/01/21 07/01/21 07/01/21 08:28 08:30 08:46 Temperature Pulse Rate 100 H 88 Pulse Rate [ From Monitor] Respiratory 17 19 Rate Blood Pressure 164/107 164/107 O2 Sat by Pulse 98 94 94 Oximetry 07/01/21 07/01/21 07/01/21 09:00 09:16 09:30 Temperature Pulse Rate 103 H 101 H 83 Pulse Rate [ From Monitor] Respiratory 16 21 22 Rate Blood Pressure 170/84 170/84 170/84 O2 Sat by Pulse 93 96 94 Oximetry 07/01/21 07/01/21 07/01/21 09:46 10:00 10:16 Temperature Pulse Rate 100 H 96 H 94 H Pulse Rate [ From Monitor] Respiratory 19 16 21 Rate Blood Pressure 149/68 161/77 161/77 O2 Sat by Pulse 96 96 96 Oximetry 07/01/21 07/01/21 07/01/21 10:30 10:46 11:00 Temperature Pulse Rate 99 H 86 99 H Pulse Rate [ From Monitor] Respiratory 18 21 17 Rate Blood Pressure 168/78 168/78 165/73 O2 Sat by Pulse 94 96 93 Oximetry 07/01/21 07/01/21 07/01/21 11:15 11:16 11:30 Temperature Pulse Rate 102 H 92 H 86 Pulse Rate [ 102 H From Monitor] Respiratory 23 20 22 Rate Blood Pressure 165/73 165/73 O2 Sat by Pulse 99 96 97 Oximetry 07/01/21 07/01/21 07/01/21 11:46 11:55 12:00 Temperature 98.3 F Pulse Rate 80 93 H Pulse Rate [ From Monitor] Respiratory 22 18 Rate Blood Pressure 139/64 161/82 O2 Sat by Pulse 95 95 Oximetry 07/01/21 07/01/21 07/01/21 12:16 12:30 12:46 Temperature Pulse Rate 89 90 96 H Pulse Rate [ From Monitor] Respiratory 18 21 20 Rate Blood Pressure 161/82 166/72 166/72 O2 Sat by Pulse 97 94 95 Oximetry 07/01/21 07/01/21 07/01/21 13:00 13:09 13:16 Temperature Pulse Rate 103 H 97 H 95 H Pulse Rate [ From Monitor] Respiratory 15 21 Rate Blood Pressure 174/82 174/82 174/82 O2 Sat by Pulse 96 95 Oximetry 07/01/21 07/01/21 07/01/21 13:30 13:46 14:00 Temperature Pulse Rate 93 H 88 95 H Pulse Rate [ From Monitor] Respiratory 19 17 24 Rate Blood Pressure 172/75 172/75 172/69 O2 Sat by Pulse 95 97 96 Oximetry 07/01/21 14:16 Temperature Pulse Rate 91 H Pulse Rate [ From Monitor] Respiratory 23 Rate Blood Pressure 155/74 O2 Sat by Pulse 97 Oximetry Constitutional: other (critically ill on ventilator) Eyes: non-icteric Neck: supple Effort: normal Ascultation: Bilateral: other (coarse BS bilaterally) Cardiovascular: regular rate and rhythm (ir/ir, no mrg) Gastrointestinal: normoactive bowel sounds, soft, non-distended Integumentary: normal Extremities: no cyanosis, no edema, pink and warm Neurologic: normal mental status, non-focal exam, pupils equal and round, CN II-XII normal Psychiatric: mood appropriate, affect normal CBC and BMP: 07/01/21 Unknown 07/01/21 04:00 ABG, PT/INR, D-dimer: ABG ABG pH 7.480 (7.320-7.450) H 06/27/21 05:06 POC ABG pCO2 38.0 mmHg (32.0-48.0) 06/27/21 05:06 ABG pCO2 35.8 mm Hg 06/26/21 10:00 POC ABG pO2 93.6 mmHg (83-108) 06/27/21 05:06 ABG pO2 125.4 mm Hg (80.0-90.0) H 06/26/21 10:00 POC ABG HCO3 27.7 06/27/21 05:06 ABG O2 Saturation 98.0 (0-100) 06/27/21 05:06 PT/INR, D-dimer PT 12.6 Sec. (12.2-14.9) 06/25/21 13:42 INR 0.85 (0.87-1.13) L 06/25/21 13:42 Abnormal lab findings: Abnormal Labs 06/22/21 06/22/21 06/22/21 07:58 07:58 07:58 WBC 13.0 H RBC Hgb MCHC 35 H Lymph % (Auto) 6.3 L [place] % (Auto) 7.4 H Lymph # (Auto) 0.8 L [place] # (Auto) 1.0 H Seg Neutrophils % 85.5 H Seg Neuts % (Manual) Lymphocytes % (Manual) Seg Neutrophils # 11.1 H Seg Neutrophils # Man Lymphocytes # (Manual) PT 11.8 L INR 0.78 L Heparin Anti-Xa Level ABG pH POC ABG pCO2 ABG pO2 ABG HCO3 ABG O2 Saturation ABG Base Excess ABG Hemoglobin ABG Oxyhemoglobin ABG Sodium ABG Chloride ABG Glucose Sodium 107 L* Potassium 2.7 L* Chloride 60.0 L Carbon Dioxide 32 H BUN Creatinine 0.5 L Glucose 177 H POC Glucose Hemoglobin A1c Lactic Acid Uric Acid Calcium Phosphorus Magnesium Alkaline Phosphatase Lactate Dehydrogenase C-Reactive Protein Total Protein Albumin Arterial Blood Glucose Urine WBC (Auto) 06/22/21 06/22/21 06/22/21 08:56 08:56 08:56 WBC RBC Hgb MCHC Lymph % (Auto) [place] % (Auto) Lymph # (Auto) [place] # (Auto) Seg Neutrophils % Seg Neuts % (Manual) Lymphocytes % (Manual) Seg Neutrophils # Seg Neutrophils # Man Lymphocytes # (Manual) PT INR Heparin Anti-Xa Level ABG pH POC ABG pCO2 ABG pO2 ABG HCO3 ABG O2 Saturation ABG Base Excess ABG Hemoglobin ABG Oxyhemoglobin ABG Sodium ABG Chloride ABG Glucose Sodium 104 L* Potassium 3.2 L Chloride 60.0 L Carbon Dioxide BUN Creatinine 0.4 L Glucose 179 H 181 H POC Glucose Hemoglobin A1c Lactic Acid 2.10 H* Uric Acid Calcium Phosphorus Magnesium Alkaline Phosphatase Lactate Dehydrogenase 220 H C-Reactive Protein 5.40 H Total Protein Albumin Arterial Blood Glucose Urine WBC (Auto) 06/22/21 06/22/21 06/22/21 11:47 14:20 18:19 WBC RBC Hgb MCHC Lymph % (Auto) [place] % (Auto) Lymph # (Auto) [place] # (Auto) Seg Neutrophils % Seg Neuts % (Manual) Lymphocytes % (Manual) Seg Neutrophils # Seg Neutrophils # Man Lymphocytes # (Manual) PT INR Heparin Anti-Xa Level ABG pH POC ABG pCO2 ABG pO2 ABG HCO3 ABG O2 Saturation ABG Base Excess ABG Hemoglobin ABG Oxyhemoglobin ABG Sodium ABG Chloride ABG Glucose Sodium 112 L* D 112 L* Potassium 2.7 L* 2.7 L* Chloride 65.2 L 65.8 L Carbon Dioxide 32 H 31 H BUN Creatinine 0.4 L 0.3 L Glucose 119 H POC Glucose Hemoglobin A1c Lactic Acid Uric Acid Calcium Phosphorus Magnesium Alkaline Phosphatase Lactate Dehydrogenase C-Reactive Protein Total Protein Albumin Arterial Blood Glucose Urine WBC (Auto) 11.0 H 06/23/21 06/23/21 06/23/21 05:29 05:29 05:29 WBC 12.4 H RBC Hgb MCHC Lymph % (Auto) 5.8 L [place] % (Auto) Lymph # (Auto) 0.7 L [place] # (Auto) 0.9 H Seg Neutrophils % 87.1 H Seg Neuts % (Manual) Lymphocytes % (Manual) Seg Neutrophils # 10.8 H Seg Neutrophils # Man Lymphocytes # (Manual) PT INR Heparin Anti-Xa Level ABG pH POC ABG pCO2 ABG pO2 ABG HCO3 ABG O2 Saturation ABG Base Excess ABG Hemoglobin ABG Oxyhemoglobin ABG Sodium ABG Chloride ABG Glucose Sodium 112 L* Potassium 2.6 L* Chloride 67.5 L Carbon Dioxide 33 H BUN Creatinine 0.4 L Glucose POC Glucose Hemoglobin A1c 6.6 H Lactic Acid Uric Acid 3.2 L Calcium Phosphorus Magnesium Alkaline Phosphatase Lactate Dehydrogenase C-Reactive Protein Total Protein Albumin Arterial Blood Glucose Urine WBC (Auto) 06/23/21 06/23/21 06/23/21 05:29 12:11 17:43 WBC RBC Hgb MCHC Lymph % (Auto) [place] % (Auto) Lymph # (Auto) [place] # (Auto) Seg Neutrophils % Seg Neuts % (Manual) Lymphocytes % (Manual) Seg Neutrophils # Seg Neutrophils # Man Lymphocytes # (Manual) PT INR Heparin Anti-Xa Level ABG pH POC ABG pCO2 ABG pO2 ABG HCO3 ABG O2 Saturation ABG Base Excess ABG Hemoglobin ABG Oxyhemoglobin ABG Sodium ABG Chloride ABG Glucose Sodium 113 L* 117 L* Potassium 2.6 L* Chloride 69.7 L 74.9 L Carbon Dioxide BUN Creatinine 0.4 L 0.3 L Glucose 106 H 125 H POC Glucose Hemoglobin A1c Lactic Acid Uric Acid Calcium Phosphorus Magnesium 1.50 L Alkaline Phosphatase Lactate Dehydrogenase C-Reactive Protein Total Protein Albumin Arterial Blood Glucose Urine WBC (Auto) 06/24/21 06/24/21 06/24/21 00:43 00:45 05:33 WBC RBC Hgb MCHC Lymph % (Auto) [place] % (Auto) Lymph # (Auto) [place] # (Auto) Seg Neutrophils % Seg Neuts % (Manual) Lymphocytes % (Manual) Seg Neutrophils # Seg Neutrophils # Man Lymphocytes # (Manual) PT INR Heparin Anti-Xa Level ABG pH POC ABG pCO2 ABG pO2 ABG HCO3 ABG O2 Saturation ABG Base Excess ABG Hemoglobin ABG Oxyhemoglobin ABG Sodium ABG Chloride ABG Glucose Sodium 119 L* 122 L Potassium Chloride 79.6 L 80.2 L Carbon Dioxide 32 H 31 H BUN Creatinine 0.4 L 0.3 L Glucose 116 H 143 H POC Glucose 117 H Hemoglobin A1c Lactic Acid Uric Acid Calcium Phosphorus Magnesium Alkaline Phosphatase Lactate Dehydrogenase C-Reactive Protein Total Protein Albumin Arterial Blood Glucose Urine WBC (Auto) 06/24/21 06/24/21 06/24/21 05:33 06:11 16:25 WBC 12.0 H RBC Hgb MCHC Lymph % (Auto) [place] % (Auto) Lymph # (Auto) [place] # (Auto) Seg Neutrophils % Seg Neuts % (Manual) 95.0 H Lymphocytes % (Manual) 2.0 L Seg Neutrophils # Seg Neutrophils # Man 11.4 H Lymphocytes # (Manual) 0.2 L PT INR Heparin Anti-Xa Level ABG pH POC ABG pCO2 ABG pO2 ABG HCO3 ABG O2 Saturation ABG Base Excess ABG Hemoglobin ABG Oxyhemoglobin ABG Sodium ABG Chloride ABG Glucose Sodium 122 L Potassium Chloride 78.9 L Carbon Dioxide 32 H BUN Creatinine 0.5 L D Glucose 141 H POC Glucose 141 H Hemoglobin A1c Lactic Acid Uric Acid Calcium Phosphorus Magnesium Alkaline Phosphatase Lactate Dehydrogenase C-Reactive Protein Total Protein Albumin Arterial Blood Glucose Urine WBC (Auto) 06/24/21 06/24/21 06/25/21 18:16 23:49 00:18 WBC RBC Hgb MCHC Lymph % (Auto) [place] % (Auto) Lymph # (Auto) [place] # (Auto) Seg Neutrophils % Seg Neuts % (Manual) Lymphocytes % (Manual) Seg Neutrophils # Seg Neutrophils # Man Lymphocytes # (Manual) PT INR Heparin Anti-Xa Level ABG pH POC ABG pCO2 ABG pO2 ABG HCO3 ABG O2 Saturation ABG Base Excess ABG Hemoglobin ABG Oxyhemoglobin ABG Sodium ABG Chloride ABG Glucose Sodium 123 L 122 L Potassium Chloride Carbon Dioxide BUN Creatinine Glucose POC Glucose 162 H Hemoglobin A1c Lactic Acid Uric Acid Calcium Phosphorus Magnesium Alkaline Phosphatase Lactate Dehydrogenase C-Reactive Protein Total Protein Albumin Arterial Blood Glucose Urine WBC (Auto) 06/25/21 06/25/21 06/25/21 03:06 06:15 10:19 WBC RBC Hgb MCHC Lymph % (Auto) [place] % (Auto) Lymph # (Auto) [place] # (Auto) Seg Neutrophils % Seg Neuts % (Manual) Lymphocytes % (Manual) Seg Neutrophils # Seg Neutrophils # Man Lymphocytes # (Manual) PT INR Heparin Anti-Xa Level ABG pH POC ABG pCO2 ABG pO2 ABG HCO3 ABG O2 Saturation ABG Base Excess ABG Hemoglobin ABG Oxyhemoglobin ABG Sodium ABG Chloride ABG Glucose Sodium Potassium Chloride Carbon Dioxide BUN Creatinine Glucose POC Glucose 151 H 149 H 152 H Hemoglobin A1c Lactic Acid Uric Acid Calcium Phosphorus Magnesium Alkaline Phosphatase Lactate Dehydrogenase C-Reactive Protein Total Protein Albumin Arterial Blood Glucose Urine WBC (Auto) 06/25/21 06/25/21 06/25/21 13:42 13:42 15:13 WBC RBC Hgb MCHC Lymph % (Auto) [place] % (Auto) Lymph # (Auto) [place] # (Auto) Seg Neutrophils % Seg Neuts % (Manual) Lymphocytes % (Manual) Seg Neutrophils # Seg Neutrophils # Man Lymphocytes # (Manual) PT INR 0.85 L Heparin Anti-Xa Level < 0.10 L ABG pH POC ABG pCO2 ABG pO2 ABG HCO3 ABG O2 Saturation ABG Base Excess ABG Hemoglobin ABG Oxyhemoglobin ABG Sodium ABG Chloride ABG Glucose Sodium 123 L Potassium Chloride 78.5 L Carbon Dioxide 32 H BUN 19 H Creatinine Glucose 193 H POC Glucose Hemoglobin A1c Lactic Acid Uric Acid Calcium Phosphorus Magnesium Alkaline Phosphatase Lactate Dehydrogenase C-Reactive Protein Total Protein Albumin Arterial Blood Glucose Urine WBC (Auto) 06/25/21 06/25/21 06/25/21 15:21 19:49 21:21 WBC RBC Hgb MCHC Lymph % (Auto) [place] % (Auto) Lymph # (Auto) [place] # (Auto) Seg Neutrophils % Seg Neuts % (Manual) Lymphocytes % (Manual) Seg Neutrophils # Seg Neutrophils # Man Lymphocytes # (Manual) PT INR Heparin Anti-Xa Level ABG pH 7.086 L POC ABG pCO2 104.9 H ABG pO2 ABG HCO3 ABG O2 Saturation ABG Base Excess ABG Hemoglobin ABG Oxyhemoglobin 92.4 L ABG Sodium 123.4 L ABG Chloride 81.0 L ABG Glucose 225 H Sodium Potassium Chloride Carbon Dioxide BUN Creatinine Glucose POC Glucose 221 H 194 H Hemoglobin A1c Lactic Acid Uric Acid Calcium Phosphorus Magnesium Alkaline Phosphatase Lactate Dehydrogenase C-Reactive Protein Total Protein Albumin Arterial Blood Glucose 225 H Urine WBC (Auto) 06/25/21 06/25/21 06/26/21 22:55 22:55 00:35 WBC 14.8 H RBC Hgb MCHC Lymph % (Auto) [place] % (Auto) Lymph # (Auto) [place] # (Auto) Seg Neutrophils % Seg Neuts % (Manual) 91.0 H Lymphocytes % (Manual) 6.0 L Seg Neutrophils # Seg Neutrophils # Man 13.5 H Lymphocytes # (Manual) 0.9 L PT INR Heparin Anti-Xa Level ABG pH POC ABG pCO2 ABG pO2 439.6 H ABG HCO3 30.0 H ABG O2 Saturation 99.6 H ABG Base Excess 3.3 H ABG Hemoglobin ABG Oxyhemoglobin ABG Sodium ABG Chloride ABG Glucose Sodium 124 L Potassium Chloride 82.9 L Carbon Dioxide BUN 22 H Creatinine Glucose 226 H POC Glucose Hemoglobin A1c Lactic Acid Uric Acid Calcium 8.2 L Phosphorus 4.70 H Magnesium Alkaline Phosphatase Lactate Dehydrogenase C-Reactive Protein Total Protein Albumin Arterial Blood Glucose Urine WBC (Auto) 06/26/21 06/26/21 06/26/21 02:58 04:32 05:53 WBC RBC Hgb MCHC Lymph % (Auto) [place] % (Auto) Lymph # (Auto) [place] # (Auto) Seg Neutrophils % Seg Neuts % (Manual) Lymphocytes % (Manual) Seg Neutrophils # Seg Neutrophils # Man Lymphocytes # (Manual) PT INR Heparin Anti-Xa Level ABG pH POC ABG pCO2 ABG pO2 ABG HCO3 ABG O2 Saturation ABG Base Excess ABG Hemoglobin ABG Oxyhemoglobin ABG Sodium ABG Chloride ABG Glucose Sodium 123 L Potassium Chloride 79.2 L Carbon Dioxide BUN 26 H Creatinine Glucose 202 H POC Glucose 227 H 187 H Hemoglobin A1c Lactic Acid Uric Acid Calcium Phosphorus Magnesium Alkaline Phosphatase Lactate Dehydrogenase C-Reactive Protein Total Protein 5.9 L Albumin 2.8 L Arterial Blood Glucose Urine WBC (Auto) 06/26/21 06/26/21 06/26/21 09:14 09:48 10:00 WBC RBC Hgb MCHC Lymph % (Auto) [place] % (Auto) Lymph # (Auto) [place] # (Auto) Seg Neutrophils % Seg Neuts % (Manual) Lymphocytes % (Manual) Seg Neutrophils # Seg Neutrophils # Man Lymphocytes # (Manual) PT INR Heparin Anti-Xa Level ABG pH 7.467 H POC ABG pCO2 ABG pO2 125.4 H ABG HCO3 ABG O2 Saturation ABG Base Excess ABG Hemoglobin ABG Oxyhemoglobin ABG Sodium ABG Chloride ABG Glucose Sodium Potassium Chloride Carbon Dioxide BUN Creatinine Glucose POC Glucose 194 H Hemoglobin A1c Lactic Acid Uric Acid Calcium Phosphorus Magnesium Alkaline Phosphatase Lactate Dehydrogenase C-Reactive Protein Total Protein Albumin Arterial Blood Glucose Urine WBC (Auto) 69.0 H 06/26/21 06/26/21 06/26/21 16:06 22:34 23:32 WBC RBC Hgb MCHC Lymph % (Auto) [place] % (Auto) Lymph # (Auto) [place] # (Auto) Seg Neutrophils % Seg Neuts % (Manual) Lymphocytes % (Manual) Seg Neutrophils # Seg Neutrophils # Man Lymphocytes # (Manual) PT INR Heparin Anti-Xa Level ABG pH POC ABG pCO2 ABG pO2 ABG HCO3 ABG O2 Saturation ABG Base Excess ABG Hemoglobin ABG Oxyhemoglobin ABG Sodium ABG Chloride ABG Glucose Sodium 128 L 126 L Potassium Chloride 88.6 L 89.2 L Carbon Dioxide BUN 32 H 34 H Creatinine Glucose 161 H 257 H POC Glucose 231 H Hemoglobin A1c Lactic Acid Uric Acid Calcium Phosphorus Magnesium Alkaline Phosphatase Lactate Dehydrogenase C-Reactive Protein Total Protein Albumin Arterial Blood Glucose Urine WBC (Auto) 06/27/21 06/27/21 06/27/21 05:06 06:00 06:00 WBC 12.0 H RBC Hgb MCHC Lymph % (Auto) [place] % (Auto) Lymph # (Auto) [place] # (Auto) Seg Neutrophils % Seg Neuts % (Manual) Lymphocytes % (Manual) Seg Neutrophils # Seg Neutrophils # Man Lymphocytes # (Manual) PT INR Heparin Anti-Xa Level ABG pH 7.480 H POC ABG pCO2 ABG pO2 ABG HCO3 ABG O2 Saturation ABG Base Excess ABG Hemoglobin 11.9 L ABG Oxyhemoglobin ABG Sodium 123.5 L ABG Chloride 91.0 L ABG Glucose 328 H Sodium 128 L Potassium Chloride 91.4 L Carbon Dioxide BUN 36 H Creatinine Glucose 346 H POC Glucose Hemoglobin A1c Lactic Acid Uric Acid Calcium Phosphorus Magnesium Alkaline Phosphatase Lactate Dehydrogenase C-Reactive Protein Total Protein Albumin Arterial Blood Glucose 328 H Urine WBC (Auto) 06/27/21 06/27/21 06/27/21 11:41 17:06 23:36 WBC RBC Hgb MCHC Lymph % (Auto) [place] % (Auto) Lymph # (Auto) [place] # (Auto) Seg Neutrophils % Seg Neuts % (Manual) Lymphocytes % (Manual) Seg Neutrophils # Seg Neutrophils # Man Lymphocytes # (Manual) PT INR Heparin Anti-Xa Level ABG pH POC ABG pCO2 ABG pO2 ABG HCO3 ABG O2 Saturation ABG Base Excess ABG Hemoglobin ABG Oxyhemoglobin ABG Sodium ABG Chloride ABG Glucose Sodium Potassium Chloride Carbon Dioxide BUN Creatinine Glucose POC Glucose 259 H 301 H 215 H Hemoglobin A1c Lactic Acid Uric Acid Calcium Phosphorus Magnesium Alkaline Phosphatase Lactate Dehydrogenase C-Reactive Protein Total Protein Albumin Arterial Blood Glucose Urine WBC (Auto) 06/28/21 06/28/21 06/28/21 03:00 03:00 03:00 WBC 14.9 H RBC 3.46 L Hgb MCHC Lymph % (Auto) 2.8 L [place] % (Auto) 7.5 H Lymph # (Auto) 0.4 L [place] # (Auto) 1.1 H Seg Neutrophils % 89.6 H Seg Neuts % (Manual) Lymphocytes % (Manual) Seg Neutrophils # 13.4 H Seg Neutrophils # Man Lymphocytes # (Manual) PT INR Heparin Anti-Xa Level 0.27 L ABG pH POC ABG pCO2 ABG pO2 ABG HCO3 ABG O2 Saturation ABG Base Excess ABG Hemoglobin ABG Oxyhemoglobin ABG Sodium ABG Chloride ABG Glucose Sodium 134 L Potassium Chloride 91.1 L Carbon Dioxide BUN 35 H Creatinine Glucose 235 H POC Glucose Hemoglobin A1c Lactic Acid Uric Acid Calcium Phosphorus 1.10 L Magnesium Alkaline Phosphatase Lactate Dehydrogenase C-Reactive Protein Total Protein Albumin Arterial Blood Glucose Urine WBC (Auto) 06/28/21 06/28/21 06/28/21 05:13 16:53 23:32 WBC RBC Hgb MCHC Lymph % (Auto) [place] % (Auto) Lymph # (Auto) [place] # (Auto) Seg Neutrophils % Seg Neuts % (Manual) Lymphocytes % (Manual) Seg Neutrophils # Seg Neutrophils # Man Lymphocytes # (Manual) PT INR Heparin Anti-Xa Level ABG pH POC ABG pCO2 ABG pO2 ABG HCO3 ABG O2 Saturation ABG Base Excess ABG Hemoglobin ABG Oxyhemoglobin ABG Sodium ABG Chloride ABG Glucose Sodium Potassium Chloride Carbon Dioxide BUN Creatinine Glucose POC Glucose 241 H 213 H 236 H Hemoglobin A1c Lactic Acid Uric Acid Calcium Phosphorus Magnesium Alkaline Phosphatase Lactate Dehydrogenase C-Reactive Protein Total Protein Albumin Arterial Blood Glucose Urine WBC (Auto) 06/29/21 06/29/21 06/29/21 05:13 05:13 06:00 WBC 12.7 H RBC 3.36 L Hgb 10.0 L MCHC Lymph % (Auto) 9.5 L [place] % (Auto) 8.6 H Lymph # (Auto) [place] # (Auto) 1.1 H Seg Neutrophils % 80.4 H Seg Neuts % (Manual) Lymphocytes % (Manual) Seg Neutrophils # 10.2 H Seg Neutrophils # Man Lymphocytes # (Manual) PT INR Heparin Anti-Xa Level 0.13 L ABG pH POC ABG pCO2 ABG pO2 ABG HCO3 ABG O2 Saturation ABG Base Excess ABG Hemoglobin ABG Oxyhemoglobin ABG Sodium ABG Chloride ABG Glucose Sodium 133 L Potassium Chloride Carbon Dioxide BUN 34 H Creatinine 0.5 L Glucose 186 H POC Glucose Hemoglobin A1c Lactic Acid Uric Acid Calcium Phosphorus 2.20 L D Magnesium Alkaline Phosphatase 31 L Lactate Dehydrogenase C-Reactive Protein Total Protein 3.3 L D Albumin 1.9 L Arterial Blood Glucose Urine WBC (Auto) 06/29/21 06/29/21 06/29/21 06:00 06:00 12:02 WBC RBC Hgb MCHC Lymph % (Auto) [place] % (Auto) Lymph # (Auto) [place] # (Auto) Seg Neutrophils % Seg Neuts % (Manual) Lymphocytes % (Manual) Seg Neutrophils # Seg Neutrophils # Man Lymphocytes # (Manual) PT INR Heparin Anti-Xa Level 0.22 L ABG pH POC ABG pCO2 ABG pO2 ABG HCO3 ABG O2 Saturation ABG Base Excess ABG Hemoglobin ABG Oxyhemoglobin ABG Sodium ABG Chloride ABG Glucose Sodium 134 L Potassium Chloride 97.8 L Carbon Dioxide BUN 33 H Creatinine Glucose 189 H POC Glucose 249 H Hemoglobin A1c Lactic Acid Uric Acid Calcium Phosphorus Magnesium Alkaline Phosphatase Lactate Dehydrogenase C-Reactive Protein Total Protein Albumin Arterial Blood Glucose Urine WBC (Auto) 06/29/21 06/30/21 06/30/21 17:20 04:20 04:20 WBC 11.9 H RBC 3.37 L Hgb MCHC Lymph % (Auto) 8.6 L [place] % (Auto) 8.3 H Lymph # (Auto) 1.0 L [place] # (Auto) 1.0 H Seg Neutrophils % 82.6 H Seg Neuts % (Manual) Lymphocytes % (Manual) Seg Neutrophils # 9.8 H Seg Neutrophils # Man Lymphocytes # (Manual) PT INR Heparin Anti-Xa Level ABG pH POC ABG pCO2 ABG pO2 ABG HCO3 ABG O2 Saturation ABG Base Excess ABG Hemoglobin ABG Oxyhemoglobin ABG Sodium ABG Chloride ABG Glucose Sodium Potassium Chloride Carbon Dioxide BUN 30 H Creatinine 0.5 L Glucose POC Glucose 172 H Hemoglobin A1c Lactic Acid Uric Acid Calcium Phosphorus Magnesium Alkaline Phosphatase Lactate Dehydrogenase C-Reactive Protein Total Protein Albumin Arterial Blood Glucose Urine WBC (Auto) 06/30/21 07/01/21 07/01/21 04:20 04:00 04:00 WBC RBC Hgb MCHC Lymph % (Auto) [place] % (Auto) Lymph # (Auto) [place] # (Auto) Seg Neutrophils % Seg Neuts % (Manual) Lymphocytes % (Manual) Seg Neutrophils # Seg Neutrophils # Man Lymphocytes # (Manual) PT INR Heparin Anti-Xa Level 0.29 L 0.26 L ABG pH POC ABG pCO2 ABG pO2 ABG HCO3 ABG O2 Saturation ABG Base Excess ABG Hemoglobin ABG Oxyhemoglobin ABG Sodium ABG Chloride ABG Glucose Sodium Potassium Chloride Carbon Dioxide BUN 25 H Creatinine 0.4 L Glucose POC Glucose Hemoglobin A1c Lactic Acid Uric Acid Calcium Phosphorus Magnesium Alkaline Phosphatase Lactate Dehydrogenase C-Reactive Protein Total Protein Albumin Arterial Blood Glucose Urine WBC (Auto) 07/01/21 07/01/21 07/01/21 06:00 08:33 Unknown WBC 12.2 H RBC 3.57 L Hgb MCHC Lymph % (Auto) [place] % (Auto) Lymph # (Auto) [place] # (Auto) Seg Neutrophils % Seg Neuts % (Manual) Lymphocytes % (Manual) Seg Neutrophils # Seg Neutrophils # Man Lymphocytes # (Manual) PT INR Heparin Anti-Xa Level ABG pH POC ABG pCO2 ABG pO2 ABG HCO3 ABG O2 Saturation ABG Base Excess ABG Hemoglobin ABG Oxyhemoglobin ABG Sodium ABG Chloride ABG Glucose Sodium Potassium Chloride Carbon Dioxide BUN Creatinine Glucose POC Glucose 69 L 131 H Hemoglobin A1c Lactic Acid Uric Acid Calcium Phosphorus Magnesium Alkaline Phosphatase Lactate Dehydrogenase C-Reactive Protein Total Protein Albumin Arterial Blood Glucose Urine WBC (Auto) Allied health notes reviewed: nursing
--- NOTE | 2021-07-01 14:44 | Progress Note ---
Assessment and Plan Patient is 65-year-old female with a past medical history of hypertension, diabetes, and tobacco use who is brought to the ED for complaint of weakness and altered mental status that lasted 4 days prior to admission Acute Encephalopathy Symptomatic Hyponatremia-nephrology following Acute Respiratory Failure-on Bipap PNA UTI Hypotension AF with RVR (new onset) Hypokalemia (resolved) Hypomagnesemia (resolved) H/o HTN DM2 H/o Tobacco Abuse Echo reviewed - EF 60-65%, no significant valvular abnormalities. Plan: Patient converted from A. fib to sinus rhythm today Continue heparin gtt for anticoagulation Patient is also hypertensive will increase to metoprolol 50 mg p.o. TID and initiate lisinopril 20 mg p.o. daily Patient seen in conjunction with Dr. Morrow who agrees with this plan of care. We will continue to follow - Patient Problems (1) Atrial fibrillation with RVR Current Visit: Yes Status: Acute (2) Acute metabolic encephalopathy Current Visit: Yes Status: Acute (3) Acute hyponatremia Current Visit: Yes Status: Acute (4) Community acquired pneumonia Current Visit: Yes Status: Acute (5) Hypokalemia Current Visit: Yes Status: Acute (6) Essential (primary) hypertension Current Visit: Yes Status: Acute (7) Type 2 diabetes mellitus without complications Current Visit: Yes Status: Chronic (8) Hypomagnesemia Current Visit: Yes Status: Acute (9) UTI (urinary tract infection) Current Visit: Yes Status: Acute Subjective Date of service: 07/01/21 Principal diagnosis: AF w RVR Interval history: Patient resting in bed off bipap Patient converted to normal sinus rhythm 98 on monitor Objective Vital Signs Temp Pulse Pulse Resp BP Pulse Ox 07/01/21 14:16 91 H 23 155/74 97 07/01/21 14:00 95 H 24 172/69 96 07/01/21 13:46 88 17 172/75 97 07/01/21 13:30 93 H 19 172/75 95 07/01/21 13:16 95 H 21 174/82 95 07/01/21 13:09 97 H 174/82 07/01/21 13:00 103 H 15 174/82 96 07/01/21 12:46 96 H 20 166/72 95 07/01/21 12:30 90 21 166/72 94 07/01/21 12:16 89 18 161/82 97 07/01/21 12:00 93 H 18 161/82 95 07/01/21 11:55 98.3 F 07/01/21 11:46 80 22 139/64 95 07/01/21 11:30 86 22 165/73 97 07/01/21 11:16 92 H 20 165/73 96 07/01/21 11:15 102 H 102 H 23 99 07/01/21 11:00 99 H 17 165/73 93 07/01/21 10:46 86 21 168/78 96 07/01/21 10:30 99 H 18 168/78 94 07/01/21 10:16 94 H 21 161/77 96 07/01/21 10:00 96 H 16 161/77 96 07/01/21 09:46 100 H 19 149/68 96 07/01/21 09:30 83 22 170/84 94 07/01/21 09:16 101 H 21 170/84 96 07/01/21 09:00 103 H 16 170/84 93 07/01/21 08:46 88 19 164/107 94 07/01/21 08:30 100 H 17 164/107 94 07/01/21 08:28 98 07/01/21 08:16 78 13 175/83 99 07/01/21 08:00 98.2 F 84 15 175/83 99 07/01/21 07:55 82 18 99 07/01/21 07:54 82 07/01/21 07:46 85 23 166/81 99 07/01/21 07:30 88 21 141/74 99 07/01/21 07:16 92 H 18 141/74 98 07/01/21 07:00 79 12 163/81 98 07/01/21 06:46 93 H 21 163/81 99 07/01/21 06:30 95 H 16 163/81 98 07/01/21 06:18 91 H 188/68 07/01/21 06:16 90 13 188/68 99 07/01/21 06:00 96 H 22 180/80 100 07/01/21 05:46 93 H 17 180/80 99 07/01/21 05:30 94 H 24 180/80 98 07/01/21 05:16 97 H 22 157/25 98 07/01/21 05:00 87 19 183/82 98 07/01/21 04:50 20 100 07/01/21 04:46 95 H 21 183/82 99 07/01/21 04:30 102 H 21 183/82 100 07/01/21 04:16 80 19 170/82 99 07/01/21 04:00 98.8 F 82 82 17 170/82 99 07/01/21 03:46 98 H 17 135/61 99 07/01/21 03:30 81 19 167/84 99 07/01/21 03:16 83 18 167/84 97 07/01/21 03:00 91 H 16 167/84 100 07/01/21 02:46 83 18 167/74 98 07/01/21 02:30 88 18 167/74 99 07/01/21 02:16 71 25 H 150/64 100 07/01/21 02:00 82 25 H 150/64 99 07/01/21 01:46 87 13 167/77 99 07/01/21 01:30 82 18 167/77 99 07/01/21 01:16 75 17 183/97 99 07/01/21 01:00 100 H 18 183/97 100 07/01/21 00:46 94 H 21 167/77 99 07/01/21 00:30 80 19 167/77 99 07/01/21 00:18 98 H 22 164/83 100 07/01/21 00:16 98 H 21 164/83 99 07/01/21 00:00 97.3 F L 110 H 118 H 21 164/83 95 06/30/21 23:46 97 H 26 H 144/73 98 06/30/21 23:30 96 H 22 144/73 88 06/30/21 23:15 95 H 23 149/63 99 06/30/21 23:00 89 26 H 149/63 99 06/30/21 22:45 111 H 28 H 162/84 98 06/30/21 22:31 104 H 22 162/84 99 06/30/21 22:15 105 H 16 137/80 98 06/30/21 22:00 104 H 15 137/80 99 06/30/21 21:45 106 H 20 151/74 99 06/30/21 21:31 90 18 151/74 100 06/30/21 21:15 95 H 23 149/129 99 06/30/21 21:00 107 H 33 H 149/129 100 01/04/22 20:45 76 17 136/74 100 06/30/21 20:30 87 15 136/74 99 06/30/21 20:15 92 H 21 136/64 100 06/30/21 20:00 98.5 F 84 83 24 136/64 99 06/30/21 19:45 79 16 146/66 99 06/30/21 19:30 81 16 146/66 100 06/30/21 19:15 81 24 155/66 99 06/30/21 19:03 86 155/66 06/30/21 19:01 86 14 155/66 97 06/30/21 19:00 87 14 155/66 97 06/30/21 18:45 103 H 12 174/75 96 06/30/21 18:30 109 H 17 174/75 97 06/30/21 18:15 105 H 17 170/85 95 06/30/21 18:00 109 H 12 170/85 97 06/30/21 17:45 99 H 18 165/75 98 06/30/21 17:30 100 H 15 165/75 97 06/30/21 17:15 109 H 16 151/71 97 06/30/21 17:00 104 H 15 151/71 100 06/30/21 16:45 105 H 14 154/62 99 06/30/21 16:31 96 H 22 150/60 100 06/30/21 16:15 99 H 21 150/60 100 06/30/21 16:00 97.6 F 76 20 150/60 100 06/30/21 15:45 96 H 17 150/68 99 06/30/21 15:30 92 H 23 150/68 98 06/30/21 15:15 92 H 25 H 149/60 100 06/30/21 15:00 13 149/60 99 06/30/21 14:45 96 H 16 158/71 100 - Physical Examination General: No Apparent Distress HEENT: Positive: Normocephaly, Mucus Membranes Dry Neck: Positive: neck supple, trachea midline Cardiac: Positive: Reg Rate and Rhythm Lungs: Positive: Decreased Breath Sounds, Rales Neuro: Positive: Grossly Intact Abdomen: Positive: Soft Skin: Negative: Rash Musculoskeletal: No Fluid Collection Extremities: Present: lower extr. pulses, warm. Absent: edema - Labs and Meds CBC 07/01/21 Range/Units Unknown WBC 12.2 H (4.5-11.0) K/mm3 RBC 3.57 L (3.65-5.03) M/mm3 Hgb 10.3 (10.1-14.3) gm/dl Hct 33.0 (30.3-42.9) % Plt Count 389 (140-440) K/mm3 Comprehensive Metabolic Panel 07/01/21 Range/Units 04:00 Sodium 141 (137-145) mmol/L Potassium 4.0 (3.6-5.0) mmol/L Chloride 102.9 (98-107) mmol/L Carbon Dioxide 28 (22-30) mmol/L BUN 25 H (7-17) mg/dL Creatinine 0.4 L (0.6-1.2) mg/dL Glucose 76 (65-100) mg/dL Calcium 10.0 (8.4-10.2) mg/dL - Imaging and Cardiology EKG: report reviewed, image reviewed Echo: report reviewed - EKG Ventricular dysrhythmias: ventricular premature com Myocardial infarction: septal SD (old age or ind, anterior SD (old age or i - Allied health notes Allied health notes reviewed: nursing
--- NOTE | 2021-07-01 17:25 | Progress Note ---
Assessment and Plan Assessment and plan: This is a 55-year-old female with HTN, tobacco abuse and diabetes mellitus admitted for severe hyponatremia, hypochloremia and hypokalemia, acute proximal respiratory failure, mini seizure-like activity and urinary tract infection. Hospital Course to Date This is a 55-year-old female with hypertension, atrial fibrillation, tobacco abuse and diabetes mellitus who presents the emergency department on 06/22 for severe weakness, altered mental status and witnessed seizure-like activity. CXR showed left basilar airspace opacity and work-up in the emergency department revealed severe hyponatremia, hypokalemia, severe hypochloremia, metabolic alkalosis acute hypoxic respiratory failure, witnessed seizure activity and urinary tract infection. Patient was admitted to the hospital service with consults to nephrology and [facility]. 06/23/2021- Patient symptomatically better, Sodium is 117 06/24: Sodium slightly better however we will still admit to ICU, no acute vents overnight 06/25: Patient noted to be in atrial fibrillation upon transfer to ICU and stat ECG revealed atrial fibrillation. Cardiology was consulted. Patient restarted on home beta-jeimy and was eventually changed to amiodarone. She was started on heparin drip. Patient will be transferred to the telemetry floor. 06/26: Yesterday evening transfer was held and ABG read which showed hypercapnia and patient was intubated. Patient became bradycardic and hypotensive and was started on Levophed. This morning patient Levophed was in the high 20s therefore vasopressin was added. After addition of vasopressin and was able to wean Levophed. Stress dose steroids started due to labile pressures. Broad- spectrum antibiotics started. Patient started on albumin and normal saline per nephrology. Cotisol ordered 06/27/2021: nephro started MIVF and does not see any indication fro hypertonic at this time. SR noted this morning. Remains on vasopression. Likely PSV in the AM. increase in insulin /2: PSV for couple hours then noted to be in afib with rvr. amio gtt restarted but patient converted back to SR after switched back to AC mode. stopped vanco today. off vasopressors. 06/29: Patient s/p extubation this am on 5L NC SPO2 at 100%. However, patient found alerted and unrousable post extubation, probably related to hypercapnia. Orders placed for stat ABG, and place patient on Bipap, d/w CCM. 06/30: Patient remains on Bipap. Plan to switch Bipap to NC this am,will assess for tolerance. Remains on amio and heparin gtt. Will keep patient strict NPO for now just in case she needs to go back on continuous Bipap 07/01: Patient has been off Bipap since this morning, on 4L NC SPO2 above 92%, tolerating it well. Keep patient on NC throughout the day, Bipap at night. Hypoglycemic this am, TF has been on hold, okay to resume enteral nutrition. Lungs more coarse this am Rt.>Lt., will D/C IVF since Na is wnr. RUE pain and swelling reported, RUE doppler ordered. Assessment and Plan #Neuro: Acute metabolic encephalopathy -Reported seizure-like activity and admitted by family however this could be related to her severe hyponatremia -No witnessed seizure activity after admit -S/p 3% saline -S/p extubation on 06/29, was AAO preintubation -2Hrs post extubation, patient was noted Altered and unrousable, most likely related to hypercapnia -Fully AAO this am, following commands -Avoid delirium -Reorientation as needed -Maintain sleep-wake cycle -As needed analgesia #Cardio:Atrial fibrillation #H/o HTN -Cardiology consulted, appreciate recommendations -Patient in SR this am, Amio gtt D/c -Continue BB per Cardio -06/25 Echocardiogram shows Normal bivalve function, LVEF 60 to 65% -Continue blood pressure monitor per protocol -Maintain MAP above 65 -hold home antihtn regimen -Continue Plavix and AC-Heparin gtt #Respiratory: Acute hypercarbic respiratory failure -Intubated on 06/25 -S/p extubation this am 06/29 -Patient found altered and unrousable 2hrs post extubation -On 5L NC SPO2 at 100%, most likely related to hypercapnia -Patient is tolerated 4L NC this am, SPO2 above 92% and mentation is stable -Continue Bipap qHs -CCM consulted, appreciate recommendations -Aspiration precaution HOB above 30 -PRN ABG and CXR per CCM -Continue O2 supplementation and SPO2 monitoring for SPO2 goal above 92% #GI:TF -Patient is off Bipap -[place] to resume TF -Continue BR -Continue PPI-Pepcid #Severe hyponatremia-resolved -Patient presented with critically low Na, as low as 104 -Probably related to dehydration vs infectious process -Patient was also on diuretic at home -S/p 3% saline and [place] -IVF D/C, Na 141 this am -Nephrology signed off -Strict intake and output -Avoid nephrotoxic medications; Renally dose medications -Martines in place -Monitor and replace electrolytes as needed -Trend BMP #ID:Urinary tract infection #Community-acquired pneumonia #Leukocytosis -Initial CXR with left basilar airspace opacity, possible atelectasis vs pneumonia -UA consistent with UTI, urine culture negative -Blood cultures NGTD -Leukocytosis as high as 14.9, downtrending -Patient remains afebrile -Continue currentl IV [id number] -Continue to F/U on B.cult -Daily CBC monitor -Consider ID consult if febrile or/and if leukocytosis worsen #Endo:Type 2 Diabetes -Hemoglobin A1c 6.6 -Hypoglycemic this am, TF has been on hold -Continue SSI Q6hrs -Continue lantus QHs -Avoid hypoglycemia -Continue hypoglycemic protocol #DVT Prophylaxis -Continue AC- Heparin gtt -SCDs to bilateral lower extremities while in bed The high probability of a clinically significant, sudden or life threatening deterioration of the [Respiratory,Renal,Endo] system(s) required my full and direct attention, intervention and personal management. The aggregate critical care time was [60] minutes. This time is in addition to time spent performing reported procedures but includes the following: [x] Data Review and interpretation [x] Patient assessment and monitoring of vital signs [x] Documentation [x] Medication orders and management Disposition Plan: ICU Total Time Spent with Patient (Minutes): 60 History Interval history: Patient seen and examined at the bedside. AAO this am only on 4L NC SPO2 above 92%. Per nursing staffs, patient used Bipap overnight but has been off since shift changed this am. Patient is tolerated well. Hospitalist Physical - Constitutional Vitals: Temp Pulse Resp BP Pulse Ox 98.3 F 73 20 131/94 99 07/01/21 11:55 07/01/21 16:00 07/01/21 16:00 07/01/21 16:00 07/01/21 16:00 General appearance: Present: no acute distress, obese - EENT Eyes: Present: PERRL, EOM intact ENT: hearing intact - Neck Neck: Present: normal ROM - Respiratory Respiratory: right: rales, left: diminished - Cardiovascular Rhythm: regular Heart Sounds: Present: S1 & S2 - Extremities Extremities: no ischemia, pulses intact, pulses symmetrical Extremity abnormal: edema - Peripheral Assessment Right Upper Extremity Edema Type: Pitting Edema Degree: 3+ Capillary Refill: < 3 seconds Skin Temperature: Hot Peripheral Pulses: within normal limits - Abdominal General gastrointestinal: soft, non-tender, normal bowel sounds - Integumentary Integumentary: Present: warm, dry - Psychiatric Psychiatric: appropriate mood/affect, cooperative - Neurologic Neurologic: CNII-XII intact, moves all extremities - Allied Health Allied health notes reviewed: nursing HEART Score - HEART Score Troponin: Troponin T < 0.010 ng/mL (0.00-0.029) 06/22/21 07:58 Results - Labs CBC & Chem 7: 07/01/21 Unknown 07/01/21 04:00 Labs: Laboratory Last Values WBC 12.2 K/mm3 (4.5-11.0) H 07/01/21 Unknown RBC 3.57 M/mm3 (3.65-5.03) L 07/01/21 Unknown Hgb 10.3 gm/dl (10.1-14.3) 07/01/21 Unknown Hct 33.0 % (30.3-42.9) 07/01/21 Unknown MCV 92 fl (79-97) 07/01/21 Unknown MCH 29 pg (28-32) 07/01/21 Unknown MCHC 31 % (30-34) 07/01/21 Unknown RDW 14.0 % (13.2-15.2) 07/01/21 Unknown Plt Count 389 K/mm3 (140-440) 07/01/21 Unknown Lymph % (Auto) 8.6 % (13.4-35.0) L 06/30/21 04:20 [place] % (Auto) 8.3 % (0.0-7.3) H 06/30/21 04:20 Eos % (Auto) 0.5 % (0.0-4.3) 06/30/21 04:20 Baso % (Auto) 0.0 % (0.0-1.8) 06/30/21 04:20 Lymph # (Auto) 1.0 K/mm3 (1.2-5.4) L 06/30/21 04:20 [place] # (Auto) 1.0 K/mm3 (0.0-0.8) H 06/30/21 04:20 Eos # (Auto) 0.1 K/mm3 (0.0-0.4) 06/30/21 04:20 Baso # (Auto) 0.0 K/mm3 (0.0-0.1) 06/30/21 04:20 Add Manual Diff Complete 06/25/21 22:55 Total Counted 100 06/25/21 22:55 Seg Neutrophils % 82.6 % (40.0-70.0) H 06/30/21 04:20 Seg Neuts % (Manual) 91.0 % (40.0-70.0) H 06/25/21 22:55 Lymphocytes % (Manual) 6.0 % (13.4-35.0) L 06/25/21 22:55 Monocytes % (Manual) 3.0 % (0.0-7.3) 06/25/21 22:55 Metamyelocytes % 1.0 % 06/24/21 05:33 Nucleated RBC % Not Reportable 06/25/21 22:55 Seg Neutrophils # 9.8 K/mm3 (1.8-7.7) H 06/30/21 04:20 Seg Neutrophils # Man 13.5 K/mm3 (1.8-7.7) H 06/25/21 22:55 Band Neutrophils # 0.0 K/mm3 06/25/21 22:55 Lymphocytes # (Manual) 0.9 K/mm3 (1.2-5.4) L 06/25/21 22:55 Abs React Lymphs (Man) 0.0 K/mm3 06/25/21 22:55 Monocytes # (Manual) 0.4 K/mm3 (0.0-0.8) 06/25/21 22:55 Eosinophils # (Manual) 0.0 K/mm3 (0.0-0.4) 06/25/21 22:55 Basophils # (Manual) 0.0 K/mm3 (0.0-0.1) 06/25/21 22:55 Metamyelocytes # 0.0 K/mm3 06/25/21 22:55 Myelocytes # 0.0 K/mm3 06/25/21 22:55 Promyelocytes # 0.0 K/mm3 06/25/21 22:55 Blast Cells # 0.0 K/mm3 06/25/21 22:55 WBC Morphology Not Reportable 06/25/21 22:55 Hypersegmented Neuts Not Reportable 06/25/21 22:55 Hyposegmented Neuts Not Reportable 06/25/21 22:55 Hypogranular Neuts Not Reportable 06/25/21 22:55 Smudge Cells Not Reportable 06/25/21 22:55 Toxic Granulation Not Reportable 06/25/21 22:55 Toxic Vacuolation Not Reportable 06/25/21 22:55 Dohle Bodies Not Reportable 06/25/21 22:55 Pelger-Huet Anomaly Not Reportable 06/25/21 22:55 Otf Rods Not Reportable 06/25/21 22:55 Platelet Estimate Consistent w auto 06/25/21 22:55 Clumped Platelets Not Reportable 06/25/21 22:55 Plt Clumps, EDTA Not Reportable 06/25/21 22:55 Large Platelets Not Reportable 06/25/21 22:55 Giant Platelets Not Reportable 06/25/21 22:55 Platelet Satelliting Not Reportable 06/25/21 22:55 Plt Morphology Comment Not Reportable 06/25/21 22:55 RBC Morphology Normal 06/25/21 22:55 Dimorphic RBCs Not Reportable 06/25/21 22:55 Polychromasia Not Reportable 06/25/21 22:55 Hypochromasia Not Reportable 06/25/21 22:55 Poikilocytosis Not Reportable 06/25/21 22:55 Anisocytosis Not Reportable 06/25/21 22:55 Microcytosis Not Reportable 06/25/21 22:55 Macrocytosis Not Reportable 06/25/21 22:55 Spherocytes Not Reportable 06/25/21 22:55 Pappenheimer Bodies Not Reportable 06/25/21 22:55 Sickle Cells Not Reportable 06/25/21 22:55 Target Cells Not Reportable 06/25/21 22:55 Tear Drop Cells Not Reportable 06/25/21 22:55 Ovalocytes Not Reportable 06/25/21 22:55 Helmet Cells Not Reportable 06/25/21 22:55 [place] Bodies Not Reportable 06/25/21 22:55 [place] Rings Not Reportable 06/25/21 22:55 William Cells Not Reportable 06/25/21 22:55 Bite Cells Not Reportable 06/25/21 22:55 Crenated Cell Not Reportable 06/25/21 22:55 Elliptocytes Not Reportable 06/25/21 22:55 Acanthocytes (Spur) Not Reportable 06/25/21 22:55 Rouleaux Not Reportable 06/25/21 22:55 Hemoglobin C Crystals Not Reportable 06/25/21 22:55 Schistocytes Not Reportable 06/25/21 22:55 Malaria parasites Not Reportable 06/25/21 22:55 Steve Bodies Not Reportable 06/25/21 22:55 Hem Pathologist Commnt No 06/25/21 22:55 PT 12.6 Sec. (12.2-14.9) 06/25/21 13:42 INR 0.85 (0.87-1.13) L 06/25/21 13:42 APTT 31.0 Sec. (24.2-36.6) 06/25/21 13:42 Thrombin Time 15.9 Sec. (15.1-19.6) 06/22/21 07:58 Heparin Anti-Xa Level 0.26 U.I./ml (0.3-0.7) L 07/01/21 04:00 ABG pH 7.480 (7.320-7.450) H 06/27/21 05:06 POC ABG pCO2 38.0 mmHg (32.0-48.0) 06/27/21 05:06 ABG pCO2 35.8 mm Hg 06/26/21 10:00 POC ABG pO2 93.6 mmHg (83-108) 06/27/21 05:06 ABG pO2 125.4 mm Hg (80.0-90.0) H 06/26/21 10:00 POC ABG HCO3 27.7 06/27/21 05:06 ABG HCO3 25.3 mmol/L (20.0-26.0) 06/26/21 10:00 ABG O2 Saturation 98.0 (0-100) 06/27/21 05:06 ABG O2 Content 17.1 (0.0-44) 06/26/21 10:00 POC ABG Base Excess 4.0 06/27/21 05:06 ABG Base Excess 1.9 mmol/L (-2.0-3.0) 06/26/21 10:00 ABG Hemoglobin 11.9 (12.0-17.5) L 06/27/21 05:06 ABG Oxyhemoglobin 96.8 (94-98) 06/27/21 05:06 ABG Carboxyhemoglobin 1.1 % (0.0-5.0) 06/26/21 10:00 ABG Methemoglobin 0.3 (0.0-1.5) 06/27/21 05:06 ABG Sodium 123.5 mmol/L (136.0-145.0) L 06/27/21 05:06 ABG Potassium 3.7 mmol/L (3.40-4.50) 06/27/21 05:06 ABG Chloride 91.0 mmol/L (98-107) L 06/27/21 05:06 ABG Glucose 328 mg/dL (65-95) H 06/27/21 05:06 Oxyhemoglobin 97.0 % (95.0-99.0) 06/26/21 10:00 Carboxyhemoglobin 0.9 (0.5-1.5) 06/27/21 05:06 FiO2 50 % 06/26/21 10:00 FiO2 % 40.0 06/27/21 05:06 Sodium 141 mmol/L (137-145) 07/01/21 04:00 Potassium 4.0 mmol/L (3.6-5.0) 07/01/21 04:00 Chloride 102.9 mmol/L (98-107) 07/01/21 04:00 Carbon Dioxide 28 mmol/L (22-30) 07/01/21 04:00 Anion Gap 14 mmol/L 07/01/21 04:00 BUN 25 mg/dL (7-17) H 07/01/21 04:00 Creatinine 0.4 mg/dL (0.6-1.2) L 07/01/21 04:00 Estimated GFR > 60 ml/min 07/01/21 04:00 BUN/Creatinine Ratio 63 % 07/01/21 04:00 Glucose 76 mg/dL (65-100) 07/01/21 04:00 POC Glucose 109 mg/dL (70-105) H 07/01/21 16:59 Hemoglobin A1c 6.6 % (4-6) H 06/23/21 05:29 Osmolality 240 Mosm/kg 06/22/21 23:24 Lactic Acid 1.60 mmol/L (0.7-2.0) 06/25/21 22:55 Uric Acid 3.2 mg/dL (3.5-7.6) L 06/23/21 05:29 Calcium 10.0 mg/dL (8.4-10.2) 07/01/21 04:00 Phosphorus 3.30 mg/dL (2.5-4.5) 07/01/21 04:00 Magnesium 1.90 mg/dL (1.7-2.3) 07/01/21 04:00 Ferritin 102.1 ng/mL (10.0-200.0) 06/22/21 08:56 Total Bilirubin 0.30 mg/dL (0.1-1.2) 06/29/21 05:13 Direct Bilirubin < 0.2 mg/dL (0-0.2) 06/26/21 04:32 Indirect Bilirubin 0.1 mg/dL 06/26/21 04:32 AST 12 units/L (5-40) 06/29/21 05:13 ALT 9 units/L (7-56) 06/29/21 05:13 Alkaline Phosphatase 31 units/L (35-129) L 06/29/21 05:13 Lactate Dehydrogenase 220 units/L (91-180) H 06/22/21 08:56 Troponin T < 0.010 ng/mL (0.00-0.029) 06/22/21 07:58 C-Reactive Protein 5.40 mg/dL (0.00-1.30) H 06/22/21 08:56 Total Protein 3.3 g/dL (6.3-8.2) L D 06/29/21 05:13 Albumin 1.9 g/dL (3.9-5) L 06/29/21 05:13 Albumin/Globulin Ratio 1.4 % 06/29/21 05:13 Procalcitonin < 0.05 ng/mL (<0.15) 06/22/21 08:56 TSH 1.070 mlU/mL (0.270-4.200) 06/22/21 07:58 Total Cortisol 36.4 mcg/dL () 06/26/21 16:06 Arterial Blood Glucose 328 mg/dL (65-95) H 06/27/21 05:06 Arterial Blood Ionized Calcium 4.9 mg/dL (4.6-5.3) 06/27/21 05:06 Urine Color Yellow (Yellow) 06/26/21 09:48 Urine Turbidity Slightly-cloudy (Clear) 06/26/21 09:48 Urine pH 6.0 (5.0-7.0) 06/26/21 09:48 Ur Specific [place] 1.014 (1.003-1.030) 06/26/21 09:48 Urine Protein 30 mg/dl mg/dL (Negative) 06/26/21 09:48 Urine Glucose (UA) 50 mg/dL (Negative) 06/26/21 09:48 Urine Ketones 20 mg/dL (Negative) 06/26/21 09:48 Urine Blood Mod (Negative) 06/26/21 09:48 Urine Nitrite Neg (Negative) 06/26/21 09:48 Urine Bilirubin Neg (Negative) 06/26/21 09:48 Urine Urobilinogen < 2.0 mg/dL (<2.0) 06/26/21 09:48 Ur Leukocyte Esterase Mod (Negative) 06/26/21 09:48 Urine WBC (Auto) 69.0 /HPF (0.0-6.0) H 06/26/21 09:48 Urine RBC (Auto) 29.0 /HPF (0.0-6.0) 06/26/21 09:48 U Epithel Cells (Auto) 1.0 /HPF (0-13.0) 06/26/21 09:48 Urine Bacteria (Auto) 4+ /HPF (Negative) 06/26/21 09:48 Ur Transition Epith Cell 1 /HPF 06/22/21 11:47 Hyaline Casts 5 /LPF 06/22/21 11:47 Urine Mucus Few /HPF 06/26/21 09:48 Urine Yeast (Budding) 3+ /HPF 06/26/21 09:48 Urine Osmolality 571 Mosm/kg 06/22/21 11:47 Urine Sodium 25 mmol/L 06/22/21 11:47 Coronavirus (PCR) Negative (Negative) 06/22/21 Unknown Microbiology: Microbiology 06/26/21 16:06 Peripheral/Venous Blood Culture - Final NO GROWTH AFTER 5 DAYS 06/26/21 16:06 Peripheral/Venous Blood Culture - Final NO GROWTH AFTER 5 DAYS Martines/IV: Voiding Method External Female Catheter Active Medications - Current Medications Current Medications: Generic Name Dose Route Start Last Admin Trade Name Freq PRN Reason Stop Dose Admin Acetaminophen 650 mg 06/22/21 22:21 07/01/21 13:10 Acetaminophen 325 Mg Tab PO 650 mg Q4H PRN Administration Pain MILD(1-3)/Fever >100.5/NAVA Lipase/Protease/Amylase 1 each 06/29/21 16:20 Lipase 10,500/Protease 25,000/Amylase 43,750 (Units) Dr Castellanos FEEDTUBE PRN PRN For Clogged Feeding Tube Clopidogrel Bisulfate 75 mg 06/23/21 10:00 07/01/21 09:42 Clopidogrel 75 Mg Tab PO 75 mg DAILY JUDY Administration Docusate Sodium 100 mg 06/25/21 22:00 07/01/21 09:41 Docusate Sodium 100 Mg/10 Ml Oral Liqd PO 100 mg BID JUDY Administration Famotidine 20 mg 06/29/21 22:00 07/01/21 09:42 Famotidine 20 Mg Tab FEEDTUBE 20 mg BID JUDY Administration Heparin Sodium/Sodium Chloride 25,000 unit in 500 mls @ 26 mls/hr 06/25/21 13:00 07/01/21 09:42 Heparin/ 0.45% Nacl-25,000 Unit/500 Ml IV 1,100 units/hr TITR JUDY 22 mls/hr Administration Protocol 1,300 UNITS/HR Insulin Human Lispro 0 unit 06/26/21 12:00 07/01/21 17:08 Insulin Lispro 100 Unit/Ml SUB-Q Not Given Q6HR [facility] Protocol Lisinopril 20 mg 07/01/21 12:00 07/01/21 13:09 Lisinopril 20 Mg Tab PO 20 mg QDAY JUDY Administration Metoclopramide HCl 10 mg 06/22/21 22:21 Metoclopramide 10 Mg/2 Ml Inj IV Q6H PRN Nausea And Vomiting Metoprolol Tartrate 50 mg 07/01/21 14:00 07/01/21 13:21 Metoprolol Tartrate 25 Mg Tab PO Not Given TID [facility] Ondansetron HCl 4 mg 06/22/21 22:21 Ondansetron 4 Mg/2 Ml Inj IV Q8H PRN Nausea And Vomiting Pravastatin Sodium 40 mg 06/23/21 22:00 06/30/21 23:00 Pravastatin 40 Mg Tab PO 40 mg QHS JUDY Administration Simple Syrup 15 ml 06/29/21 16:20 Simple Syrup 15 Ml FEEDTUBE PRN PRN Hypoglycemia Simple Syrup 30 ml 06/29/21 16:20 Simple Syrup 15 Ml FEEDTUBE PRN PRN Hypoglycemia Sodium Bicarbonate 325 mg 06/29/21 16:20 Sodium Bicarbonate 325 Mg Tab FEEDTUBE PRN PRN For Clogged Feeding Tube Sodium Chloride 10 ml 06/23/21 10:00 07/01/21 09:42 Sodium Chloride 0.9% 10 Ml Flush Syringe IV 10 ml BID JUDY Administration Sodium Chloride 10 ml 06/22/21 22:21 Sodium Chloride 0.9% 10 Ml Flush Syringe IV PRN PRN LINE FLUSH Nutrition/Malnutrition Assess - Dietary Evaluation Nutrition/Malnutrition Findings: Nutrition Notes Start: 06/26/21 11:01 Freq: Status: Active Protocol: Document 06/29/21 16:12 [facility] (Rec: 06/29/21 16:21 [facility] [id number]) Nutrition Notes Initial or Follow up Reassessment Current Diagnosis Diabetes,Hypertension, Respiratory Failure Other Pertinent Diagnosis Acute encephalopathy, pneu, UTI, Hypotension, afib with RVR Current Diet TF - Osmolite 1.5 at 43ml/hr Labs/Tests BG 189 POC Glu range since last assessment: 187-301 A1C 6.6 Pertinent Medications Amiodarone gtt, Lantus, Heparin gtt, NS at 100ml/hr Height 5 ft 5 in Weight 86.183 kg [place] Body Weight (kg) 56.81 BMI 31.6 Weight Status Obese Subjective/Other Information Pt extubated this am; TF on hold per RN. Pt on BiPap support at this time. Burn Absent Trauma Absent #1 Nutrition Diagnosis Inadequate oral intake Diagnosis Progress(for reassessment Continues documentation) Is patient on ventilator? No Is Patient Ambulatory and/or Out of Bed No REE-([facility]-confined to bed) [phone] Kcal/Kg value to use for calculation 14 Approximate Energy Requirements Using 1207 kcal/Kg Calculation Used for Recommendations Kcal/kg Additional Notes Pro needs 2g/kg IBW: 114g/day Fluid needs 1ml/kcal Nutrition Intervention Change Diet Order: Advance diet when medically feasible Nutrition Support: Change TF formula to Vital HP at 50ml/hr if unable to advance diet. Provide 50ml water flush q4h. Kcal 1,200 Protein (gm) 105 Carbohydrates (gm) 134 Fat (gm) 28 Fluid (mL) 1,003 Fiber (gm) 0 Goal #1 Either advance diet or resume EN support to meet nutrient needs Follow-Up By: 07/01/21 Additional Comments F/U: diet advancement vs resume TF
[2021-07-01] MEDS: PRAVASTATIN 40 MG TAB PO SCH (21:57)
[2021-07-02] MEDS: INSULIN LISPRO 100 UNIT/ML SUB-Q SCH ×4 (00:25→18:11)
[2021-07-02 05:38] LABS: Hemoglobin 10.1 gm/dl (10.1-14.3); Mean Corpuscular HGB Conc 33 % (30-34); Mean Corpuscular Volume 93 fl (79-97); Platelet Count 337 K/mm3 (140-440); Red Blood Count 3.35 M/mm3 (3.65-5.03); Red Cell Distribution Width 13.9 % (13.2-15.2)
[2021-07-02 05:59] LABS: Blood Urea Nitrogen 21 mg/dL (7-17); Calcium 9.5 mg/dL (8.4-10.2); Hemolysis Index 2
[2021-07-02 06:00] LABS: BUN/Creatinine Ratio 42
[2021-07-02] MEDS: HEPARIN/ 0.45% NACL DRIP 25,000 UNIT/500 ML BAG IV SCH (08:39)
[2021-07-02] MEDS: METOPROLOL TARTRATE 25 MG TAB PO SCH ×3 (08:42→21:21)
[2021-07-02] MEDS: DOCUSATE SODIUM 100 MG/10 ML ORAL LIQD PO SCH ×2 (09:35→21:20)
[2021-07-02] MEDS: LISINOPRIL 20 MG TAB PO SCH (09:35)
[2021-07-02] MEDS: CLOPIDOGREL 75 MG TAB PO SCH (09:35)
[2021-07-02] MEDS: FAMOTIDINE 20 MG TAB FEEDTUBE SCH ×2 (09:36→21:20)
[2021-07-02 11:22] LABS: INR 0.88 (0.87-1.13)
[2021-07-02 11:33] LABS: Partial Thromboplastin Time TNR Sec. (24.2-36.6)
--- NOTE | 2021-07-02 12:06 | Progress Note ---
Assessment and Plan 65 y/o female with symptomatic hyponatremia of unknown etiology 07/02/21: stable pulm [facility] now for transfer to floor, should have tele. COntinue bipap at night and pRN. CM investigating funding as she will need NIV at discharge. 07/01/21: Will need NIV for night time and PRN use at home. Will continue bipap QHS and PRN here. Ok with transfer to step down for at least 24 hours and then to floor. Rate control per cards. Ok to restart feeds as well. Will continue to follow. CM to further investigate funding 06/30/21: Will give break off bipap for at least an hour and monitor mental state hourly. In the event she requires continuous bipap again, then will discuss with patient and family () the Idea of trach, trach care and what that could mean for her in the future. Cardiology has ordered PO meds. We will attempt to give those but we had changed them back to IV given the likelihood she is going to require bipap again. Continue ICU care. 06/29/21: Will keep patient on continuous bipap at least until tomorrow morning. Try off Bipap again. If she fails will reach out to surgery as patient would likely need trach. Biggest question is why now (for CO2 retention.) Per cards echo is normal and when asked no prior history of RADHA. Will keep NPO so will nee to Continue Amio drip. Will place on scheduled lopressor since we cannot give oral meds at this time. 06/26/21: Transfer on hold. Follow up repeat ABG. Wean vasopressors for maps >65. Call renal in regards to Na since no real improvement with samsaca. Place [place]. If 3% is needed again, please give through central line. 06/25/21: Transferring to floor. Suggest remote tele. Wean FiO2 as tolerated. Will continue to follow. 06/24/21: Given Na greater than 120 and symptoms continue to improve, no objection to down grade to floor status. Suggest either tele floor or remote tele. Follow up renal recs. 1. Follow up renal recs 2. Yesterday placed patient on normal saline but now that 3% is being given will discontinue 3. q6 hour Chemistries given low chloride as well 4. Frequent neuro checks given rising na 5. Guarded prognosis. CCT 31minutes. Subjective Date of service: 07/02/21 Principal diagnosis: AF w RVR Interval history: Continues to do well. Wore NIV last night and mentation is appropriate this am. sTill on supplemental oxygen but good sats. Per patient she does not feel well. Objective Vital Signs - 12hr 07/02/21 07/02/21 07/02/21 00:11 01:00 02:00 Temperature Pulse Rate 71 96 H 89 Respiratory 17 22 16 Rate Blood Pressure 147/60 127/50 O2 Sat by Pulse 99 99 99 Oximetry 07/02/21 07/02/21 07/02/21 03:00 04:00 05:00 Temperature 99.0 F Pulse Rate 80 90 99 H Respiratory 17 13 22 Rate Blood Pressure 119/53 135/52 148/60 O2 Sat by Pulse 100 98 98 Oximetry 07/02/21 07/02/21 07/02/21 06:00 07:59 08:42 Temperature 98.2 F Pulse Rate 96 H 87 Respiratory 19 Rate Blood Pressure 141/58 121/22 O2 Sat by Pulse 99 93 Oximetry 07/02/21 09:35 Temperature Pulse Rate 91 H Respiratory Rate Blood Pressure 121/49 O2 Sat by Pulse Oximetry Constitutional: other (critically ill on ventilator) Eyes: non-icteric Neck: supple Effort: normal Ascultation: Bilateral: other (coarse BS bilaterally) Cardiovascular: regular rate and rhythm (ir/ir, no mrg) Gastrointestinal: normoactive bowel sounds, soft, non-distended Integumentary: normal Extremities: no cyanosis, no edema, pink and warm Neurologic: normal mental status, non-focal exam, pupils equal and round, CN II- XII normal Psychiatric: mood appropriate, affect normal CBC and BMP: 07/02/21 05:23 07/02/21 05:23 ABG, PT/INR, D-dimer: ABG ABG pH 7.480 (7.320-7.450) H 06/27/21 05:06 POC ABG pCO2 38.0 mmHg (32.0-48.0) 06/27/21 05:06 ABG pCO2 35.8 mm Hg 06/26/21 10:00 POC ABG pO2 93.6 mmHg (83-108) 06/27/21 05:06 ABG pO2 125.4 mm Hg (80.0-90.0) H 06/26/21 10:00 POC ABG HCO3 27.7 06/27/21 05:06 ABG O2 Saturation 98.0 (0-100) 06/27/21 05:06 PT/INR, D-dimer PT 13.0 Sec. (12.2-14.9) 07/02/21 05:30 INR 0.88 (0.87-1.13) 07/02/21 05:30 D-Dimer 390 ng/mlDDU (0-234) H 06/22/21 08:56 Abnormal lab findings: Abnormal Labs 06/22/21 06/22/21 06/22/21 07:58 07:58 07:58 WBC 13.0 H RBC Hgb MCHC 35 H Lymph % (Auto) 6.3 L [place] % (Auto) 7.4 H Lymph # (Auto) 0.8 L [place] # (Auto) 1.0 H Seg Neutrophils % 85.5 H Seg Neuts % (Manual) Lymphocytes % (Manual) Seg Neutrophils # 11.1 H Seg Neutrophils # Man Lymphocytes # (Manual) PT 11.8 L INR 0.78 L D-Dimer Heparin Anti-Xa Level ABG pH POC ABG pCO2 ABG pO2 ABG HCO3 ABG O2 Saturation ABG Base Excess ABG Hemoglobin ABG Oxyhemoglobin ABG Sodium ABG Chloride ABG Glucose Sodium 107 L* Potassium 2.7 L* Chloride 60.0 L Carbon Dioxide 32 H BUN Creatinine 0.5 L Glucose 177 H POC Glucose Hemoglobin A1c Lactic Acid Uric Acid Calcium Phosphorus Magnesium Alkaline Phosphatase Lactate Dehydrogenase C-Reactive Protein Total Protein Albumin Arterial Blood Glucose Urine WBC (Auto) 06/22/21 06/22/21 06/22/21 08:56 08:56 08:56 WBC RBC Hgb MCHC Lymph % (Auto) [place] % (Auto) Lymph # (Auto) [place] # (Auto) Seg Neutrophils % Seg Neuts % (Manual) Lymphocytes % (Manual) Seg Neutrophils # Seg Neutrophils # Man Lymphocytes # (Manual) PT INR D-Dimer 390 H Heparin Anti-Xa Level ABG pH POC ABG pCO2 ABG pO2 ABG HCO3 ABG O2 Saturation ABG Base Excess ABG Hemoglobin ABG Oxyhemoglobin ABG Sodium ABG Chloride ABG Glucose Sodium Potassium Chloride Carbon Dioxide BUN Creatinine Glucose 179 H POC Glucose Hemoglobin A1c Lactic Acid 2.10 H* Uric Acid Calcium Phosphorus Magnesium Alkaline Phosphatase Lactate Dehydrogenase 220 H C-Reactive Protein 5.40 H Total Protein Albumin Arterial Blood Glucose Urine WBC (Auto) 06/22/21 06/22/21 06/22/21 08:56 11:47 14:20 WBC RBC Hgb MCHC Lymph % (Auto) [place] % (Auto) Lymph # (Auto) [place] # (Auto) Seg Neutrophils % Seg Neuts % (Manual) Lymphocytes % (Manual) Seg Neutrophils # Seg Neutrophils # Man Lymphocytes # (Manual) PT INR D-Dimer Heparin Anti-Xa Level ABG pH POC ABG pCO2 ABG pO2 ABG HCO3 ABG O2 Saturation ABG Base Excess ABG Hemoglobin ABG Oxyhemoglobin ABG Sodium ABG Chloride ABG Glucose Sodium 104 L* 112 L* D Potassium 3.2 L 2.7 L* Chloride 60.0 L 65.2 L Carbon Dioxide 32 H BUN Creatinine 0.4 L 0.4 L Glucose 181 H 119 H POC Glucose Hemoglobin A1c Lactic Acid Uric Acid Calcium Phosphorus Magnesium Alkaline Phosphatase Lactate Dehydrogenase C-Reactive Protein Total Protein Albumin Arterial Blood Glucose Urine WBC (Auto) 11.0 H 06/22/21 06/23/21 06/23/21 18:19 05:29 05:29 WBC 12.4 H RBC Hgb MCHC Lymph % (Auto) 5.8 L [place] % (Auto) Lymph # (Auto) 0.7 L [place] # (Auto) 0.9 H Seg Neutrophils % 87.1 H Seg Neuts % (Manual) Lymphocytes % (Manual) Seg Neutrophils # 10.8 H Seg Neutrophils # Man Lymphocytes # (Manual) PT INR D-Dimer Heparin Anti-Xa Level ABG pH POC ABG pCO2 ABG pO2 ABG HCO3 ABG O2 Saturation ABG Base Excess ABG Hemoglobin ABG Oxyhemoglobin ABG Sodium ABG Chloride ABG Glucose Sodium 112 L* 112 L* Potassium 2.7 L* 2.6 L* Chloride 65.8 L 67.5 L Carbon Dioxide 31 H 33 H BUN Creatinine 0.3 L 0.4 L Glucose POC Glucose Hemoglobin A1c Lactic Acid Uric Acid 3.2 L Calcium Phosphorus Magnesium Alkaline Phosphatase Lactate Dehydrogenase C-Reactive Protein Total Protein Albumin Arterial Blood Glucose Urine WBC (Auto) 06/23/21 06/23/21 06/23/21 05:29 05:29 12:11 WBC RBC Hgb MCHC Lymph % (Auto) [place] % (Auto) Lymph # (Auto) [place] # (Auto) Seg Neutrophils % Seg Neuts % (Manual) Lymphocytes % (Manual) Seg Neutrophils # Seg Neutrophils # Man Lymphocytes # (Manual) PT INR D-Dimer Heparin Anti-Xa Level ABG pH POC ABG pCO2 ABG pO2 ABG HCO3 ABG O2 Saturation ABG Base Excess ABG Hemoglobin ABG Oxyhemoglobin ABG Sodium ABG Chloride ABG Glucose Sodium 113 L* Potassium 2.6 L* Chloride 69.7 L Carbon Dioxide BUN Creatinine 0.4 L Glucose 106 H POC Glucose Hemoglobin A1c 6.6 H Lactic Acid Uric Acid Calcium Phosphorus Magnesium 1.50 L Alkaline Phosphatase Lactate Dehydrogenase C-Reactive Protein Total Protein Albumin Arterial Blood Glucose Urine WBC (Auto) 06/23/21 06/24/21 06/24/21 17:43 00:43 00:45 WBC RBC Hgb MCHC Lymph % (Auto) [place] % (Auto) Lymph # (Auto) [place] # (Auto) Seg Neutrophils % Seg Neuts % (Manual) Lymphocytes % (Manual) Seg Neutrophils # Seg Neutrophils # Man Lymphocytes # (Manual) PT INR D-Dimer Heparin Anti-Xa Level ABG pH POC ABG pCO2 ABG pO2 ABG HCO3 ABG O2 Saturation ABG Base Excess ABG Hemoglobin ABG Oxyhemoglobin ABG Sodium ABG Chloride ABG Glucose Sodium 117 L* 119 L* Potassium Chloride 74.9 L 79.6 L Carbon Dioxide 32 H BUN Creatinine 0.3 L 0.4 L Glucose 125 H 116 H POC Glucose 117 H Hemoglobin A1c Lactic Acid Uric Acid Calcium Phosphorus Magnesium Alkaline Phosphatase Lactate Dehydrogenase C-Reactive Protein Total Protein Albumin Arterial Blood Glucose Urine WBC (Auto) 06/24/21 06/24/21 06/24/21 05:33 05:33 06:11 WBC 12.0 H RBC Hgb MCHC Lymph % (Auto) [place] % (Auto) Lymph # (Auto) [place] # (Auto) Seg Neutrophils % Seg Neuts % (Manual) 95.0 H Lymphocytes % (Manual) 2.0 L Seg Neutrophils # Seg Neutrophils # Man 11.4 H Lymphocytes # (Manual) 0.2 L PT INR D-Dimer Heparin Anti-Xa Level ABG pH POC ABG pCO2 ABG pO2 ABG HCO3 ABG O2 Saturation ABG Base Excess ABG Hemoglobin ABG Oxyhemoglobin ABG Sodium ABG Chloride ABG Glucose Sodium 122 L Potassium Chloride 80.2 L Carbon Dioxide 31 H BUN Creatinine 0.3 L Glucose 143 H POC Glucose 141 H Hemoglobin A1c Lactic Acid Uric Acid Calcium Phosphorus Magnesium Alkaline Phosphatase Lactate Dehydrogenase C-Reactive Protein Total Protein Albumin Arterial Blood Glucose Urine WBC (Auto) 06/24/21 06/24/21 06/24/21 16:25 18:16 23:49 WBC RBC Hgb MCHC Lymph % (Auto) [place] % (Auto) Lymph # (Auto) [place] # (Auto) Seg Neutrophils % Seg Neuts % (Manual) Lymphocytes % (Manual) Seg Neutrophils # Seg Neutrophils # Man Lymphocytes # (Manual) PT INR D-Dimer Heparin Anti-Xa Level ABG pH POC ABG pCO2 ABG pO2 ABG HCO3 ABG O2 Saturation ABG Base Excess ABG Hemoglobin ABG Oxyhemoglobin ABG Sodium ABG Chloride ABG Glucose Sodium 122 L 123 L Potassium Chloride 78.9 L Carbon Dioxide 32 H BUN Creatinine 0.5 L D Glucose 141 H POC Glucose 162 H Hemoglobin A1c Lactic Acid Uric Acid Calcium Phosphorus Magnesium Alkaline Phosphatase Lactate Dehydrogenase C-Reactive Protein Total Protein Albumin Arterial Blood Glucose Urine WBC (Auto) 06/25/21 06/25/21 06/25/21 00:18 03:06 06:15 WBC RBC Hgb MCHC Lymph % (Auto) [place] % (Auto) Lymph # (Auto) [place] # (Auto) Seg Neutrophils % Seg Neuts % (Manual) Lymphocytes % (Manual) Seg Neutrophils # Seg Neutrophils # Man Lymphocytes # (Manual) PT INR D-Dimer Heparin Anti-Xa Level ABG pH POC ABG pCO2 ABG pO2 ABG HCO3 ABG O2 Saturation ABG Base Excess ABG Hemoglobin ABG Oxyhemoglobin ABG Sodium ABG Chloride ABG Glucose Sodium 122 L Potassium Chloride Carbon Dioxide BUN Creatinine Glucose POC Glucose 151 H 149 H Hemoglobin A1c Lactic Acid Uric Acid Calcium Phosphorus Magnesium Alkaline Phosphatase Lactate Dehydrogenase C-Reactive Protein Total Protein Albumin Arterial Blood Glucose Urine WBC (Auto) 06/25/21 06/25/21 06/25/21 10:19 13:42 13:42 WBC RBC Hgb MCHC Lymph % (Auto) [place] % (Auto) Lymph # (Auto) [place] # (Auto) Seg Neutrophils % Seg Neuts % (Manual) Lymphocytes % (Manual) Seg Neutrophils # Seg Neutrophils # Man Lymphocytes # (Manual) PT INR 0.85 L D-Dimer Heparin Anti-Xa Level ABG pH POC ABG pCO2 ABG pO2 ABG HCO3 ABG O2 Saturation ABG Base Excess ABG Hemoglobin ABG Oxyhemoglobin ABG Sodium ABG Chloride ABG Glucose Sodium 123 L Potassium Chloride 78.5 L Carbon Dioxide 32 H BUN 19 H Creatinine Glucose 193 H POC Glucose 152 H Hemoglobin A1c Lactic Acid Uric Acid Calcium Phosphorus Magnesium Alkaline Phosphatase Lactate Dehydrogenase C-Reactive Protein Total Protein Albumin Arterial Blood Glucose Urine WBC (Auto) 06/25/21 06/25/21 06/25/21 15:13 15:21 19:49 WBC RBC Hgb MCHC Lymph % (Auto) [place] % (Auto) Lymph # (Auto) [place] # (Auto) Seg Neutrophils % Seg Neuts % (Manual) Lymphocytes % (Manual) Seg Neutrophils # Seg Neutrophils # Man Lymphocytes # (Manual) PT INR D-Dimer Heparin Anti-Xa Level < 0.10 L ABG pH POC ABG pCO2 ABG pO2 ABG HCO3 ABG O2 Saturation ABG Base Excess ABG Hemoglobin ABG Oxyhemoglobin ABG Sodium ABG Chloride ABG Glucose Sodium Potassium Chloride Carbon Dioxide BUN Creatinine Glucose POC Glucose 221 H 194 H Hemoglobin A1c Lactic Acid Uric Acid Calcium Phosphorus Magnesium Alkaline Phosphatase Lactate Dehydrogenase C-Reactive Protein Total Protein Albumin Arterial Blood Glucose Urine WBC (Auto) 06/25/21 06/25/21 06/25/21 21:21 22:55 22:55 WBC 14.8 H RBC Hgb MCHC Lymph % (Auto) [place] % (Auto) Lymph # (Auto) [place] # (Auto) Seg Neutrophils % Seg Neuts % (Manual) 91.0 H Lymphocytes % (Manual) 6.0 L Seg Neutrophils # Seg Neutrophils # Man 13.5 H Lymphocytes # (Manual) 0.9 L PT INR D-Dimer Heparin Anti-Xa Level ABG pH 7.086 L POC ABG pCO2 104.9 H ABG pO2 ABG HCO3 ABG O2 Saturation ABG Base Excess ABG Hemoglobin ABG Oxyhemoglobin 92.4 L ABG Sodium 123.4 L ABG Chloride 81.0 L ABG Glucose 225 H Sodium 124 L Potassium Chloride 82.9 L Carbon Dioxide BUN 22 H Creatinine Glucose 226 H POC Glucose Hemoglobin A1c Lactic Acid Uric Acid Calcium 8.2 L Phosphorus 4.70 H Magnesium Alkaline Phosphatase Lactate Dehydrogenase C-Reactive Protein Total Protein Albumin Arterial Blood Glucose 225 H Urine WBC (Auto) 06/26/21 06/26/21 06/26/21 00:35 02:58 04:32 WBC RBC Hgb MCHC Lymph % (Auto) [place] % (Auto) Lymph # (Auto) [place] # (Auto) Seg Neutrophils % Seg Neuts % (Manual) Lymphocytes % (Manual) Seg Neutrophils # Seg Neutrophils # Man Lymphocytes # (Manual) PT INR D-Dimer Heparin Anti-Xa Level ABG pH POC ABG pCO2 ABG pO2 439.6 H ABG HCO3 30.0 H ABG O2 Saturation 99.6 H ABG Base Excess 3.3 H ABG Hemoglobin ABG Oxyhemoglobin ABG Sodium ABG Chloride ABG Glucose Sodium 123 L Potassium Chloride 79.2 L Carbon Dioxide BUN 26 H Creatinine Glucose 202 H POC Glucose 227 H Hemoglobin A1c Lactic Acid Uric Acid Calcium Phosphorus Magnesium Alkaline Phosphatase Lactate Dehydrogenase C-Reactive Protein Total Protein 5.9 L Albumin 2.8 L Arterial Blood Glucose Urine WBC (Auto) 06/26/21 06/26/21 06/26/21 05:53 09:14 09:48 WBC RBC Hgb MCHC Lymph % (Auto) [place] % (Auto) Lymph # (Auto) [place] # (Auto) Seg Neutrophils % Seg Neuts % (Manual) Lymphocytes % (Manual) Seg Neutrophils # Seg Neutrophils # Man Lymphocytes # (Manual) PT INR D-Dimer Heparin Anti-Xa Level ABG pH POC ABG pCO2 ABG pO2 ABG HCO3 ABG O2 Saturation ABG Base Excess ABG Hemoglobin ABG Oxyhemoglobin ABG Sodium ABG Chloride ABG Glucose Sodium Potassium Chloride Carbon Dioxide BUN Creatinine Glucose POC Glucose 187 H 194 H Hemoglobin A1c Lactic Acid Uric Acid Calcium Phosphorus Magnesium Alkaline Phosphatase Lactate Dehydrogenase C-Reactive Protein Total Protein Albumin Arterial Blood Glucose Urine WBC (Auto) 69.0 H 06/26/21 06/26/21 06/26/21 10:00 16:06 22:34 WBC RBC Hgb MCHC Lymph % (Auto) [place] % (Auto) Lymph # (Auto) [place] # (Auto) Seg Neutrophils % Seg Neuts % (Manual) Lymphocytes % (Manual) Seg Neutrophils # Seg Neutrophils # Man Lymphocytes # (Manual) PT INR D-Dimer Heparin Anti-Xa Level ABG pH 7.467 H POC ABG pCO2 ABG pO2 125.4 H ABG HCO3 ABG O2 Saturation ABG Base Excess ABG Hemoglobin ABG Oxyhemoglobin ABG Sodium ABG Chloride ABG Glucose Sodium 128 L Potassium Chloride 88.6 L Carbon Dioxide BUN 32 H Creatinine Glucose 161 H POC Glucose 231 H Hemoglobin A1c Lactic Acid Uric Acid Calcium Phosphorus Magnesium Alkaline Phosphatase Lactate Dehydrogenase C-Reactive Protein Total Protein Albumin Arterial Blood Glucose Urine WBC (Auto) 06/26/21 06/27/21 06/27/21 23:32 05:06 06:00 WBC 12.0 H RBC Hgb MCHC Lymph % (Auto) [place] % (Auto) Lymph # (Auto) [place] # (Auto) Seg Neutrophils % Seg Neuts % (Manual) Lymphocytes % (Manual) Seg Neutrophils # Seg Neutrophils # Man Lymphocytes # (Manual) PT INR D-Dimer Heparin Anti-Xa Level ABG pH 7.480 H POC ABG pCO2 ABG pO2 ABG HCO3 ABG O2 Saturation ABG Base Excess ABG Hemoglobin 11.9 L ABG Oxyhemoglobin ABG Sodium 123.5 L ABG Chloride 91.0 L ABG Glucose 328 H Sodium 126 L Potassium Chloride 89.2 L Carbon Dioxide BUN 34 H Creatinine Glucose 257 H POC Glucose Hemoglobin A1c Lactic Acid Uric Acid Calcium Phosphorus Magnesium Alkaline Phosphatase Lactate Dehydrogenase C-Reactive Protein Total Protein Albumin Arterial Blood Glucose 328 H Urine WBC (Auto) 06/27/21 06/27/21 06/27/21 06:00 11:41 17:06 WBC RBC Hgb MCHC Lymph % (Auto) [place] % (Auto) Lymph # (Auto) [place] # (Auto) Seg Neutrophils % Seg Neuts % (Manual) Lymphocytes % (Manual) Seg Neutrophils # Seg Neutrophils # Man Lymphocytes # (Manual) PT INR D-Dimer Heparin Anti-Xa Level ABG pH POC ABG pCO2 ABG pO2 ABG HCO3 ABG O2 Saturation ABG Base Excess ABG Hemoglobin ABG Oxyhemoglobin ABG Sodium ABG Chloride ABG Glucose Sodium 128 L Potassium Chloride 91.4 L Carbon Dioxide BUN 36 H Creatinine Glucose 346 H POC Glucose 259 H 301 H Hemoglobin A1c Lactic Acid Uric Acid Calcium Phosphorus Magnesium Alkaline Phosphatase Lactate Dehydrogenase C-Reactive Protein Total Protein Albumin Arterial Blood Glucose Urine WBC (Auto) 06/27/21 06/28/21 06/28/21 23:36 03:00 03:00 WBC 14.9 H RBC 3.46 L Hgb MCHC Lymph % (Auto) 2.8 L [place] % (Auto) 7.5 H Lymph # (Auto) 0.4 L [place] # (Auto) 1.1 H Seg Neutrophils % 89.6 H Seg Neuts % (Manual) Lymphocytes % (Manual) Seg Neutrophils # 13.4 H Seg Neutrophils # Man Lymphocytes # (Manual) PT INR D-Dimer Heparin Anti-Xa Level ABG pH POC ABG pCO2 ABG pO2 ABG HCO3 ABG O2 Saturation ABG Base Excess ABG Hemoglobin ABG Oxyhemoglobin ABG Sodium ABG Chloride ABG Glucose Sodium 134 L Potassium Chloride 91.1 L Carbon Dioxide BUN 35 H Creatinine Glucose 235 H POC Glucose 215 H Hemoglobin A1c Lactic Acid Uric Acid Calcium Phosphorus 1.10 L Magnesium Alkaline Phosphatase Lactate Dehydrogenase C-Reactive Protein Total Protein Albumin Arterial Blood Glucose Urine WBC (Auto) 06/28/21 06/28/21 06/28/21 03:00 05:13 16:53 WBC RBC Hgb MCHC Lymph % (Auto) [place] % (Auto) Lymph # (Auto) [place] # (Auto) Seg Neutrophils % Seg Neuts % (Manual) Lymphocytes % (Manual) Seg Neutrophils # Seg Neutrophils # Man Lymphocytes # (Manual) PT INR D-Dimer Heparin Anti-Xa Level 0.27 L ABG pH POC ABG pCO2 ABG pO2 ABG HCO3 ABG O2 Saturation ABG Base Excess ABG Hemoglobin ABG Oxyhemoglobin ABG Sodium ABG Chloride ABG Glucose Sodium Potassium Chloride Carbon Dioxide BUN Creatinine Glucose POC Glucose 241 H 213 H Hemoglobin A1c Lactic Acid Uric Acid Calcium Phosphorus Magnesium Alkaline Phosphatase Lactate Dehydrogenase C-Reactive Protein Total Protein Albumin Arterial Blood Glucose Urine WBC (Auto) 06/28/21 06/29/21 06/29/21 23:32 05:13 05:13 WBC RBC Hgb MCHC Lymph % (Auto) [place] % (Auto) Lymph # (Auto) [place] # (Auto) Seg Neutrophils % Seg Neuts % (Manual) Lymphocytes % (Manual) Seg Neutrophils # Seg Neutrophils # Man Lymphocytes # (Manual) PT INR D-Dimer Heparin Anti-Xa Level 0.13 L ABG pH POC ABG pCO2 ABG pO2 ABG HCO3 ABG O2 Saturation ABG Base Excess ABG Hemoglobin ABG Oxyhemoglobin ABG Sodium ABG Chloride ABG Glucose Sodium 133 L Potassium Chloride Carbon Dioxide BUN 34 H Creatinine 0.5 L Glucose 186 H POC Glucose 236 H Hemoglobin A1c Lactic Acid Uric Acid Calcium Phosphorus 2.20 L D Magnesium Alkaline Phosphatase 31 L Lactate Dehydrogenase C-Reactive Protein Total Protein 3.3 L D Albumin 1.9 L Arterial Blood Glucose Urine WBC (Auto) 06/29/21 06/29/21 06/29/21 06:00 06:00 06:00 WBC 12.7 H RBC 3.36 L Hgb 10.0 L MCHC Lymph % (Auto) 9.5 L [place] % (Auto) 8.6 H Lymph # (Auto) [place] # (Auto) 1.1 H Seg Neutrophils % 80.4 H Seg Neuts % (Manual) Lymphocytes % (Manual) Seg Neutrophils # 10.2 H Seg Neutrophils # Man Lymphocytes # (Manual) PT INR D-Dimer Heparin Anti-Xa Level 0.22 L ABG pH POC ABG pCO2 ABG pO2 ABG HCO3 ABG O2 Saturation ABG Base Excess ABG Hemoglobin ABG Oxyhemoglobin ABG Sodium ABG Chloride ABG Glucose Sodium 134 L Potassium Chloride 97.8 L Carbon Dioxide BUN 33 H Creatinine Glucose 189 H POC Glucose Hemoglobin A1c Lactic Acid Uric Acid Calcium Phosphorus Magnesium Alkaline Phosphatase Lactate Dehydrogenase C-Reactive Protein Total Protein Albumin Arterial Blood Glucose Urine WBC (Auto) 06/29/21 06/29/21 06/30/21 12:02 17:20 04:20 WBC 11.9 H RBC 3.37 L Hgb MCHC Lymph % (Auto) 8.6 L [place] % (Auto) 8.3 H Lymph # (Auto) 1.0 L [place] # (Auto) 1.0 H Seg Neutrophils % 82.6 H Seg Neuts % (Manual) Lymphocytes % (Manual) Seg Neutrophils # 9.8 H Seg Neutrophils # Man Lymphocytes # (Manual) PT INR D-Dimer Heparin Anti-Xa Level ABG pH POC ABG pCO2 ABG pO2 ABG HCO3 ABG O2 Saturation ABG Base Excess ABG Hemoglobin ABG Oxyhemoglobin ABG Sodium ABG Chloride ABG Glucose Sodium Potassium Chloride Carbon Dioxide BUN Creatinine Glucose POC Glucose 249 H 172 H Hemoglobin A1c Lactic Acid Uric Acid Calcium Phosphorus Magnesium Alkaline Phosphatase Lactate Dehydrogenase C-Reactive Protein Total Protein Albumin Arterial Blood Glucose Urine WBC (Auto) 06/30/21 06/30/21 07/01/21 04:20 04:20 04:00 WBC RBC Hgb MCHC Lymph % (Auto) [place] % (Auto) Lymph # (Auto) [place] # (Auto) Seg Neutrophils % Seg Neuts % (Manual) Lymphocytes % (Manual) Seg Neutrophils # Seg Neutrophils # Man Lymphocytes # (Manual) PT INR D-Dimer Heparin Anti-Xa Level 0.29 L 0.26 L ABG pH POC ABG pCO2 ABG pO2 ABG HCO3 ABG O2 Saturation ABG Base Excess ABG Hemoglobin ABG Oxyhemoglobin ABG Sodium ABG Chloride ABG Glucose Sodium Potassium Chloride Carbon Dioxide BUN 30 H Creatinine 0.5 L Glucose POC Glucose Hemoglobin A1c Lactic Acid Uric Acid Calcium Phosphorus Magnesium Alkaline Phosphatase Lactate Dehydrogenase C-Reactive Protein Total Protein Albumin Arterial Blood Glucose Urine WBC (Auto) 07/01/21 07/01/21 07/01/21 04:00 06:00 08:33 WBC RBC Hgb MCHC Lymph % (Auto) [place] % (Auto) Lymph # (Auto) [place] # (Auto) Seg Neutrophils % Seg Neuts % (Manual) Lymphocytes % (Manual) Seg Neutrophils # Seg Neutrophils # Man Lymphocytes # (Manual) PT INR D-Dimer Heparin Anti-Xa Level ABG pH POC ABG pCO2 ABG pO2 ABG HCO3 ABG O2 Saturation ABG Base Excess ABG Hemoglobin ABG Oxyhemoglobin ABG Sodium ABG Chloride ABG Glucose Sodium Potassium Chloride Carbon Dioxide BUN 25 H Creatinine 0.4 L Glucose POC Glucose 69 L 131 H Hemoglobin A1c Lactic Acid Uric Acid Calcium Phosphorus Magnesium Alkaline Phosphatase Lactate Dehydrogenase C-Reactive Protein Total Protein Albumin Arterial Blood Glucose Urine WBC (Auto) 07/01/21 07/01/21 07/02/21 16:59 Unknown 05:23 WBC 12.2 H RBC 3.57 L Hgb MCHC Lymph % (Auto) [place] % (Auto) Lymph # (Auto) [place] # (Auto) Seg Neutrophils % Seg Neuts % (Manual) Lymphocytes % (Manual) Seg Neutrophils # Seg Neutrophils # Man Lymphocytes # (Manual) PT INR D-Dimer Heparin Anti-Xa Level 0.29 L ABG pH POC ABG pCO2 ABG pO2 ABG HCO3 ABG O2 Saturation ABG Base Excess ABG Hemoglobin ABG Oxyhemoglobin ABG Sodium ABG Chloride ABG Glucose Sodium Potassium Chloride Carbon Dioxide BUN Creatinine Glucose POC Glucose 109 H Hemoglobin A1c Lactic Acid Uric Acid Calcium Phosphorus Magnesium Alkaline Phosphatase Lactate Dehydrogenase C-Reactive Protein Total Protein Albumin Arterial Blood Glucose Urine WBC (Auto) 07/02/21 07/02/21 07/02/21 05:23 05:23 05:29 WBC RBC 3.35 L Hgb MCHC Lymph % (Auto) [place] % (Auto) Lymph # (Auto) [place] # (Auto) Seg Neutrophils % Seg Neuts % (Manual) Lymphocytes % (Manual) Seg Neutrophils # Seg Neutrophils # Man Lymphocytes # (Manual) PT INR D-Dimer Heparin Anti-Xa Level ABG pH POC ABG pCO2 ABG pO2 ABG HCO3 ABG O2 Saturation ABG Base Excess ABG Hemoglobin ABG Oxyhemoglobin ABG Sodium ABG Chloride ABG Glucose Sodium Potassium Chloride Carbon Dioxide 33 H BUN 21 H Creatinine 0.5 L Glucose 122 H POC Glucose 118 H Hemoglobin A1c Lactic Acid Uric Acid Calcium Phosphorus Magnesium Alkaline Phosphatase Lactate Dehydrogenase C-Reactive Protein Total Protein Albumin Arterial Blood Glucose Urine WBC (Auto) 07/02/21 11:38 WBC RBC Hgb MCHC Lymph % (Auto) [place] % (Auto) Lymph # (Auto) [place] # (Auto) Seg Neutrophils % Seg Neuts % (Manual) Lymphocytes % (Manual) Seg Neutrophils # Seg Neutrophils # Man Lymphocytes # (Manual) PT INR D-Dimer Heparin Anti-Xa Level ABG pH POC ABG pCO2 ABG pO2 ABG HCO3 ABG O2 Saturation ABG Base Excess ABG Hemoglobin ABG Oxyhemoglobin ABG Sodium ABG Chloride ABG Glucose Sodium Potassium Chloride Carbon Dioxide BUN Creatinine Glucose POC Glucose 177 H Hemoglobin A1c Lactic Acid Uric Acid Calcium Phosphorus Magnesium Alkaline Phosphatase Lactate Dehydrogenase C-Reactive Protein Total Protein Albumin Arterial Blood Glucose Urine WBC (Auto) Allied health notes reviewed: nursing
[2021-07-02] MEDS: APIXABAN 5 MG TAB PO SCH ×2 (13:00→21:20)
--- NOTE | 2021-07-02 14:21 | Progress Note ---
Assessment and Plan Patient is 65-year-old female with a past medical history of hypertension, diabetes, and tobacco use who is brought to the ED for complaint of weakness and altered mental status that lasted 4 days prior to admission Acute Encephalopathy Symptomatic Hyponatremia-nephrology following Acute Respiratory Failure-on Bipap PNA UTI Hypotension AF with RVR (new onset) Hypokalemia (resolved) Hypomagnesemia (resolved) H/o HTN DM2 H/o Tobacco Abuse Echo reviewed - EF 60-65%, no significant valvular abnormalities. Plan: Patient converted back to A. fib rate trending 70s to 80s on monitor Stop heparin gtt and converted to Eliquis for anticoagulation Continue metoprolol 50 mg p.o. TID and lisinopril 20 mg p.o. daily Patient seen in conjunction with Dr. Morrow who agrees with this plan of care. We will continue to follow - Patient Problems (1) Atrial fibrillation with RVR Current Visit: Yes Status: Acute (2) Acute metabolic encephalopathy Current Visit: Yes Status: Acute (3) Acute hyponatremia Current Visit: Yes Status: Acute (4) Community acquired pneumonia Current Visit: Yes Status: Acute (5) Hypokalemia Current Visit: Yes Status: Acute (6) Essential (primary) hypertension Current Visit: Yes Status: Acute (7) Type 2 diabetes mellitus without complications Current Visit: Yes Status: Chronic (8) Hypomagnesemia Current Visit: Yes Status: Acute (9) UTI (urinary tract infection) Current Visit: Yes Status: Acute Qualifiers: Urinary tract infection type: acute cystitis Subjective Date of service: 07/02/21 Principal diagnosis: AF w RVR Interval history: Patient resting in bed Patient converted back to A. fib trending 70s to 80s on monitor Objective Vital Signs Temp Pulse Pulse Resp BP Pulse Ox 07/02/21 13:17 79 143/62 07/02/21 13:00 105 H 26 H 143/62 94 07/02/21 12:00 97.9 F 104 H 27 H 139/64 93 07/02/21 11:00 81 28 H 123/54 91 07/02/21 10:00 89 28 H 130/45 88 07/02/21 09:35 91 H 121/49 07/02/21 09:00 81 28 H 121/49 88 07/02/21 08:42 87 121/22 93 07/02/21 08:00 82 14 121/22 95 07/02/21 07:59 98.2 F 07/02/21 07:00 95 H 21 140/53 99 07/02/21 06:00 96 H 19 141/58 99 07/02/21 05:00 99 H 22 148/60 98 07/02/21 04:00 99.0 F 90 13 135/52 98 07/02/21 03:00 80 17 119/53 100 07/02/21 02:00 89 16 127/50 99 07/02/21 01:00 96 H 22 147/60 99 07/02/21 00:11 71 17 99 07/02/21 00:00 97.9 F 79 21 99 07/01/21 23:25 94 H 419 H 146/64 97 07/01/21 23:08 111 H 24 93 07/01/21 23:00 90 27 H 146/64 92 07/01/21 22:46 90 20 148/65 92 07/01/21 22:30 90 21 148/65 93 07/01/21 22:16 105 H 22 145/64 92 07/01/21 22:00 102 H 14 145/64 93 07/01/21 21:59 104 H 139/67 07/01/21 21:46 102 H 24 139/67 94 07/01/21 21:30 104 H 27 H 139/67 93 07/01/21 21:16 83 23 141/61 93 07/01/21 21:00 100 H 25 H 141/61 91 07/01/21 20:46 115 H 23 145/68 90 07/01/21 20:30 108 H 21 145/68 88 07/01/21 20:16 111 H 25 H 147/69 91 07/01/21 20:05 93 07/01/21 20:00 98.2 F 105 H 73 21 147/69 92 07/01/21 19:46 111 H 18 146/64 94 07/01/21 19:30 106 H 28 H 118/55 94 07/01/21 19:16 92 H 21 118/55 95 07/01/21 19:00 82 12 141/64 96 07/01/21 18:46 105 H 20 141/64 95 07/01/21 18:30 104 H 20 120/52 95 07/01/21 18:16 95 H 25 H 120/52 96 07/01/21 18:00 73 16 146/66 95 07/01/21 17:46 98 H 25 H 146/66 95 07/01/21 17:30 101 H 14 146/66 92 07/01/21 17:16 102 H 17 124/61 94 07/01/21 17:00 98 H 20 124/61 95 07/01/21 16:46 96 H 17 140/59 96 07/01/21 16:30 98 H 13 140/59 94 07/01/21 16:16 98 H 22 121/53 96 07/01/21 16:00 98.1 F 70 73 12 131/94 97 07/01/21 15:46 73 19 131/94 96 07/01/21 15:30 88 24 131/94 94 07/01/21 15:16 77 17 140/71 94 07/01/21 15:00 94 H 22 163/70 97 07/01/21 14:46 78 23 163/70 96 07/01/21 14:30 94 H 22 155/74 97 - Physical Examination General: No Apparent Distress HEENT: Positive: Normocephaly, Mucus Membranes Dry Neck: Positive: neck supple, trachea midline Cardiac: Positive: irregularly irregular Lungs: Positive: Decreased Breath Sounds Neuro: Positive: Grossly Intact Abdomen: Positive: Soft Skin: Negative: Rash Musculoskeletal: No Fluid Collection Extremities: Present: lower extr. pulses, warm. Absent: edema - Labs and Meds Coagulation 07/02/21 Range/Units 05:30 PT 13.0 (12.2-14.9) Sec. INR 0.88 (0.87-1.13) APTT TNR CBC 07/02/21 Range/Units 05:23 WBC 10.3 (4.5-11.0) K/mm3 RBC 3.35 L (3.65-5.03) M/mm3 Hgb 10.1 (10.1-14.3) gm/dl Hct 31.0 (30.3-42.9) % Plt Count 337 (140-440) K/mm3 Comprehensive Metabolic Panel 07/02/21 Range/Units 05:23 Sodium 140 (137-145) mmol/L Potassium 3.8 (3.6-5.0) mmol/L Chloride 100.4 (98-107) mmol/L Carbon Dioxide 33 H (22-30) mmol/L BUN 21 H (7-17) mg/dL Creatinine 0.5 L (0.6-1.2) mg/dL Glucose 122 H (65-100) mg/dL Calcium 9.5 (8.4-10.2) mg/dL - Imaging and Cardiology EKG: report reviewed, image reviewed Echo: report reviewed - Telemetry EKG Rhythm: Atrial Fibrillation - EKG Supraventricular dysrhythmia: atrial fibrillation Ventricular dysrhythmias: ventricular premature com Myocardial infarction: septal OR (old age or ind, anterior OR (old age or i - Allied health notes Allied health notes reviewed: nursing
--- NOTE | 2021-07-02 15:22 | Progress Note ---
Assessment and Plan Assessment and plan: #Acute hypercapnic respiratory failure -continue supplemental O2, will wean as tolerated -if unable to wean, will need home O2 walk test prior to d/c -keep SpO2 >92% -continue BiPAP at night -likely 2/2 to CAP #Atrial fibrillation -rate controlled -s/p heparin gtt, eliquis started -continue metoprolol -Cardiology following, assistance appreciated #Hypertension -controlled -continue lisinopril #Type 2 diabetes -controlled, glucose 100-177 -continue SSI Resolved problems #Severe hyponatremia- resolved #Acute metabolic encephalopathy- likely 2/2 hyponatremia #Urinary tract infection #Community-acquired pneumonia-s/p abx Disposition Plan: Transferred to [facility] History Interval history: No acute events overnight. Patient reports not feeling well today. Denies worsening shortness of breath, chest pain or palpitations. Hospitalist Physical - Physical exam Narrative exam: GENERAL: Well-developed well-nourished. In no acute distress. HEENT: Nasal cannula, NG tube in place CHEST/LUNGS: Coarse breath sounds bilaterally. HEART/CARDIOVASCULAR: RRR. No murmur, rubs or gallops appreciated. ABDOMEN: +BS. NT/ND. NEURO: No focal motor deficit. Follows all commands. MUSCULOSKELETAL: No joint effusion EXTREMITIES: No cyanosis, clubbing or edema. PSYCH: Cooperative. - Constitutional Vitals: Temp Pulse Resp BP Pulse Ox 97.9 F 79 26 H 143/62 94 07/02/21 12:00 07/02/21 13:17 07/02/21 13:00 07/02/21 13:17 07/02/21 13:00 General appearance: Present: no acute distress, obese HEART Score - HEART Score Troponin: Troponin T < 0.010 ng/mL (0.00-0.029) 06/22/21 07:58 Results - Labs CBC & Chem 7: 07/02/21 05:23 07/02/21 05:23 Labs: Laboratory Last Values WBC 10.3 K/mm3 (4.5-11.0) 07/02/21 05:23 RBC 3.35 M/mm3 (3.65-5.03) L 07/02/21 05:23 Hgb 10.1 gm/dl (10.1-14.3) 07/02/21 05:23 Hct 31.0 % (30.3-42.9) 07/02/21 05:23 MCV 93 fl (79-97) 07/02/21 05:23 MCH 30 pg (28-32) 07/02/21 05:23 MCHC 33 % (30-34) 07/02/21 05:23 RDW 13.9 % (13.2-15.2) 07/02/21 05:23 Plt Count 337 K/mm3 (140-440) 07/02/21 05:23 Lymph % (Auto) 8.6 % (13.4-35.0) L 06/30/21 04:20 [place] % (Auto) 8.3 % (0.0-7.3) H 06/30/21 04:20 Eos % (Auto) 0.5 % (0.0-4.3) 06/30/21 04:20 Baso % (Auto) 0.0 % (0.0-1.8) 06/30/21 04:20 Lymph # (Auto) 1.0 K/mm3 (1.2-5.4) L 06/30/21 04:20 [place] # (Auto) 1.0 K/mm3 (0.0-0.8) H 06/30/21 04:20 Eos # (Auto) 0.1 K/mm3 (0.0-0.4) 06/30/21 04:20 Baso # (Auto) 0.0 K/mm3 (0.0-0.1) 06/30/21 04:20 Add Manual Diff Complete 06/25/21 22:55 Total Counted 100 06/25/21 22:55 Seg Neutrophils % 82.6 % (40.0-70.0) H 06/30/21 04:20 Seg Neuts % (Manual) 91.0 % (40.0-70.0) H 06/25/21 22:55 Lymphocytes % (Manual) 6.0 % (13.4-35.0) L 06/25/21 22:55 Monocytes % (Manual) 3.0 % (0.0-7.3) 06/25/21 22:55 Metamyelocytes % 1.0 % 06/24/21 05:33 Nucleated RBC % Not Reportable 06/25/21 22:55 Seg Neutrophils # 9.8 K/mm3 (1.8-7.7) H 06/30/21 04:20 Seg Neutrophils # Man 13.5 K/mm3 (1.8-7.7) H 06/25/21 22:55 Band Neutrophils # 0.0 K/mm3 06/25/21 22:55 Lymphocytes # (Manual) 0.9 K/mm3 (1.2-5.4) L 06/25/21 22:55 Abs React Lymphs (Man) 0.0 K/mm3 06/25/21 22:55 Monocytes # (Manual) 0.4 K/mm3 (0.0-0.8) 06/25/21 22:55 Eosinophils # (Manual) 0.0 K/mm3 (0.0-0.4) 06/25/21 22:55 Basophils # (Manual) 0.0 K/mm3 (0.0-0.1) 06/25/21 22:55 Metamyelocytes # 0.0 K/mm3 06/25/21 22:55 Myelocytes # 0.0 K/mm3 06/25/21 22:55 Promyelocytes # 0.0 K/mm3 06/25/21 22:55 Blast Cells # 0.0 K/mm3 06/25/21 22:55 WBC Morphology Not Reportable 06/25/21 22:55 Hypersegmented Neuts Not Reportable 06/25/21 22:55 Hyposegmented Neuts Not Reportable 06/25/21 22:55 Hypogranular Neuts Not Reportable 06/25/21 22:55 Smudge Cells Not Reportable 06/25/21 22:55 Toxic Granulation Not Reportable 06/25/21 22:55 Toxic Vacuolation Not Reportable 06/25/21 22:55 Dohle Bodies Not Reportable 06/25/21 22:55 Pelger-Huet Anomaly Not Reportable 06/25/21 22:55 Otf Rods Not Reportable 06/25/21 22:55 Platelet Estimate Consistent w auto 06/25/21 22:55 Clumped Platelets Not Reportable 06/25/21 22:55 Plt Clumps, EDTA Not Reportable 06/25/21 22:55 Large Platelets Not Reportable 06/25/21 22:55 Giant Platelets Not Reportable 06/25/21 22:55 Platelet Satelliting Not Reportable 06/25/21 22:55 Plt Morphology Comment Not Reportable 06/25/21 22:55 RBC Morphology Normal 06/25/21 22:55 Dimorphic RBCs Not Reportable 06/25/21 22:55 Polychromasia Not Reportable 06/25/21 22:55 Hypochromasia Not Reportable 06/25/21 22:55 Poikilocytosis Not Reportable 06/25/21 22:55 Anisocytosis Not Reportable 06/25/21 22:55 Microcytosis Not Reportable 06/25/21 22:55 Macrocytosis Not Reportable 06/25/21 22:55 Spherocytes Not Reportable 06/25/21 22:55 Pappenheimer Bodies Not Reportable 06/25/21 22:55 Sickle Cells Not Reportable 06/25/21 22:55 Target Cells Not Reportable 06/25/21 22:55 Tear Drop Cells Not Reportable 06/25/21 22:55 Ovalocytes Not Reportable 06/25/21 22:55 Helmet Cells Not Reportable 06/25/21 22:55 [place] Bodies Not Reportable 06/25/21 22:55 [place] Rings Not Reportable 06/25/21 22:55 [place] Cells Not Reportable 06/25/21 22:55 Bite Cells Not Reportable 06/25/21 22:55 Crenated Cell Not Reportable 06/25/21 22:55 Elliptocytes Not Reportable 06/25/21 22:55 Acanthocytes (Spur) Not Reportable 06/25/21 22:55 Rouleaux Not Reportable 06/25/21 22:55 Hemoglobin C Crystals Not Reportable 06/25/21 22:55 Schistocytes Not Reportable 06/25/21 22:55 Malaria parasites Not Reportable 06/25/21 22:55 Steve Bodies Not Reportable 06/25/21 22:55 Hem Pathologist Commnt No 06/25/21 22:55 PT 13.0 Sec. (12.2-14.9) 07/02/21 05:30 INR 0.88 (0.87-1.13) 07/02/21 05:30 APTT TNR 07/02/21 05:30 Thrombin Time 15.9 Sec. (15.1-19.6) 06/22/21 07:58 D-Dimer 390 ng/mlDDU (0-234) H 06/22/21 08:56 Heparin Anti-Xa Level 0.29 U.I./ml (0.3-0.7) L 07/02/21 05:23 ABG pH 7.480 (7.320-7.450) H 06/27/21 05:06 POC ABG pCO2 38.0 mmHg (32.0-48.0) 06/27/21 05:06 ABG pCO2 35.8 mm Hg 06/26/21 10:00 POC ABG pO2 93.6 mmHg (83-108) 06/27/21 05:06 ABG pO2 125.4 mm Hg (80.0-90.0) H 06/26/21 10:00 POC ABG HCO3 27.7 06/27/21 05:06 ABG HCO3 25.3 mmol/L (20.0-26.0) 06/26/21 10:00 ABG O2 Saturation 98.0 (0-100) 06/27/21 05:06 ABG O2 Content 17.1 (0.0-44) 06/26/21 10:00 POC ABG Base Excess 4.0 06/27/21 05:06 ABG Base Excess 1.9 mmol/L (-2.0-3.0) 06/26/21 10:00 ABG Hemoglobin 11.9 (12.0-17.5) L 06/27/21 05:06 ABG Oxyhemoglobin 96.8 (94-98) 06/27/21 05:06 ABG Carboxyhemoglobin 1.1 % (0.0-5.0) 06/26/21 10:00 ABG Methemoglobin 0.3 (0.0-1.5) 06/27/21 05:06 ABG Sodium 123.5 mmol/L (136.0-145.0) L 06/27/21 05:06 ABG Potassium 3.7 mmol/L (3.40-4.50) 06/27/21 05:06 ABG Chloride 91.0 mmol/L (98-107) L 06/27/21 05:06 ABG Glucose 328 mg/dL (65-95) H 06/27/21 05:06 Oxyhemoglobin 97.0 % (95.0-99.0) 06/26/21 10:00 Carboxyhemoglobin 0.9 (0.5-1.5) 06/27/21 05:06 FiO2 50 % 06/26/21 10:00 FiO2 % 40.0 06/27/21 05:06 Sodium 140 mmol/L (137-145) 07/02/21 05:23 Potassium 3.8 mmol/L (3.6-5.0) 07/02/21 05:23 Chloride 100.4 mmol/L (98-107) 07/02/21 05:23 Carbon Dioxide 33 mmol/L (22-30) H 07/02/21 05:23 Anion Gap 10 mmol/L 07/02/21 05:23 BUN 21 mg/dL (7-17) H 07/02/21 05:23 Creatinine 0.5 mg/dL (0.6-1.2) L 07/02/21 05:23 Estimated GFR > 60 ml/min 07/02/21 05:23 BUN/Creatinine Ratio 42 % 07/02/21 05:23 Glucose 122 mg/dL (65-100) H 07/02/21 05:23 POC Glucose 177 mg/dL (70-105) H 07/02/21 11:38 Hemoglobin A1c 6.6 % (4-6) H 06/23/21 05:29 Osmolality 240 Mosm/kg 06/22/21 23:24 Lactic Acid 1.60 mmol/L (0.7-2.0) 06/25/21 22:55 Uric Acid 3.2 mg/dL (3.5-7.6) L 06/23/21 05:29 Calcium 9.5 mg/dL (8.4-10.2) 07/02/21 05:23 Phosphorus 3.10 mg/dL (2.5-4.5) 07/02/21 05:23 Magnesium 1.80 mg/dL (1.7-2.3) 07/02/21 05:23 Ferritin 102.1 ng/mL (10.0-200.0) 06/22/21 08:56 Total Bilirubin 0.30 mg/dL (0.1-1.2) 06/29/21 05:13 Direct Bilirubin < 0.2 mg/dL (0-0.2) 06/26/21 04:32 Indirect Bilirubin 0.1 mg/dL 06/26/21 04:32 AST 12 units/L (5-40) 06/29/21 05:13 ALT 9 units/L (7-56) 06/29/21 05:13 Alkaline Phosphatase 31 units/L (35-129) L 06/29/21 05:13 Lactate Dehydrogenase 220 units/L (91-180) H 06/22/21 08:56 Troponin T < 0.010 ng/mL (0.00-0.029) 06/22/21 07:58 C-Reactive Protein 5.40 mg/dL (0.00-1.30) H 06/22/21 08:56 Total Protein 3.3 g/dL (6.3-8.2) L D 06/29/21 05:13 Albumin 1.9 g/dL (3.9-5) L 06/29/21 05:13 Albumin/Globulin Ratio 1.4 % 06/29/21 05:13 Procalcitonin < 0.05 ng/mL (<0.15) 06/22/21 08:56 TSH 1.070 mlU/mL (0.270-4.200) 06/22/21 07:58 Total Cortisol 36.4 mcg/dL () 06/26/21 16:06 Arterial Blood Glucose 328 mg/dL (65-95) H 06/27/21 05:06 Arterial Blood Ionized Calcium 4.9 mg/dL (4.6-5.3) 06/27/21 05:06 Urine Color Yellow (Yellow) 06/26/21 09:48 Urine Turbidity Slightly-cloudy (Clear) 06/26/21 09:48 Urine pH 6.0 (5.0-7.0) 06/26/21 09:48 Ur Specific [place] 1.014 (1.003-1.030) 06/26/21 09:48 Urine Protein 30 mg/dl mg/dL (Negative) 06/26/21 09:48 Urine Glucose (UA) 50 mg/dL (Negative) 06/26/21 09:48 Urine Ketones 20 mg/dL (Negative) 06/26/21 09:48 Urine Blood Mod (Negative) 06/26/21 09:48 Urine Nitrite Neg (Negative) 06/26/21 09:48 Urine Bilirubin Neg (Negative) 06/26/21 09:48 Urine Urobilinogen < 2.0 mg/dL (<2.0) 06/26/21 09:48 Ur Leukocyte Esterase Mod (Negative) 06/26/21 09:48 Urine WBC (Auto) 69.0 /HPF (0.0-6.0) H 06/26/21 09:48 Urine RBC (Auto) 29.0 /HPF (0.0-6.0) 06/26/21 09:48 U Epithel Cells (Auto) 1.0 /HPF (0-13.0) 06/26/21 09:48 Urine Bacteria (Auto) 4+ /HPF (Negative) 06/26/21 09:48 Ur Transition Epith Cell 1 /HPF 06/22/21 11:47 Hyaline Casts 5 /LPF 06/22/21 11:47 Urine Mucus Few /HPF 06/26/21 09:48 Urine Yeast (Budding) 3+ /HPF 06/26/21 09:48 Urine Osmolality 571 Mosm/kg 06/22/21 11:47 Urine Sodium 25 mmol/L 06/22/21 11:47 Coronavirus (PCR) Negative (Negative) 06/22/21 Unknown Microbiology: Microbiology 06/26/21 16:06 Peripheral/Venous Blood Culture - Final NO GROWTH AFTER 5 DAYS 06/26/21 16:06 Peripheral/Venous Blood Culture - Final NO GROWTH AFTER 5 DAYS Martines/IV: Voiding Method External Female Catheter Active Medications - Current Medications Current Medications: Generic Name Dose Route Start Last Admin Trade Name Freq PRN Reason Stop Dose Admin Acetaminophen 650 mg 06/22/21 22:21 07/01/21 13:10 Acetaminophen 325 Mg Tab PO 650 mg Q4H PRN Administration Pain MILD(1-3)/Fever >100.5/NAVA Lipase/Protease/Amylase 1 each 06/29/21 16:20 Lipase 10,500/Protease 25,000/Amylase 43,750 (Units) Dr Castellanos FEEDTUBE PRN PRN For Clogged Feeding Tube Apixaban 5 mg 07/02/21 12:00 07/02/21 13:00 Apixaban 5 Mg Tab PO 5 mg Q12HR JUDY Administration Protocol Clopidogrel Bisulfate 75 mg 06/23/21 10:00 07/02/21 09:35 Clopidogrel 75 Mg Tab PO 75 mg DAILY JUDY Administration Docusate Sodium 100 mg 06/25/21 22:00 07/02/21 09:35 Docusate Sodium 100 Mg/10 Ml Oral Liqd PO 100 mg BID JUDY Administration Famotidine 20 mg 06/29/21 22:00 07/02/21 09:36 Famotidine 20 Mg Tab FEEDTUBE 20 mg BID JUDY Administration Insulin Human Lispro 0 unit 06/26/21 12:00 07/02/21 12:55 Insulin Lispro 100 Unit/Ml SUB-Q 3 unit Q6HR JUDY Administration Protocol Lisinopril 20 mg 07/01/21 12:00 07/02/21 09:35 Lisinopril 20 Mg Tab PO 20 mg QDAY JUDY Administration Metoclopramide HCl 10 mg 06/22/21 22:21 Metoclopramide 10 Mg/2 Ml Inj IV Q6H PRN Nausea And Vomiting Metoprolol Tartrate 50 mg 07/01/21 14:00 07/02/21 13:17 Metoprolol Tartrate 25 Mg Tab PO 50 mg TID JUDY Administration Ondansetron HCl 4 mg 06/22/21 22:21 Ondansetron 4 Mg/2 Ml Inj IV Q8H PRN Nausea And Vomiting Pravastatin Sodium 40 mg 06/23/21 22:00 07/01/21 21:57 Pravastatin 40 Mg Tab PO 40 mg QHS JUDY Administration Simple Syrup 15 ml 06/29/21 16:20 Simple Syrup 15 Ml FEEDTUBE PRN PRN Hypoglycemia Simple Syrup 30 ml 06/29/21 16:20 Simple Syrup 15 Ml FEEDTUBE PRN PRN Hypoglycemia Sodium Bicarbonate 325 mg 06/29/21 16:20 Sodium Bicarbonate 325 Mg Tab FEEDTUBE PRN PRN For Clogged Feeding Tube Sodium Chloride 10 ml 06/23/21 10:00 07/02/21 09:36 Sodium Chloride 0.9% 10 Ml Flush Syringe IV 10 ml BID JUDY Administration Sodium Chloride 10 ml 06/22/21 22:21 Sodium Chloride 0.9% 10 Ml Flush Syringe IV PRN PRN LINE FLUSH Nutrition/Malnutrition Assess - Dietary Evaluation Nutrition/Malnutrition Findings: Nutrition Notes Start: 06/26/21 11:01 Freq: Status: Active Protocol: Document 07/01/21 18:17 VINCENZO (Rec: 07/01/21 18:27 VINCENZO [id number]) Nutrition Notes Initial or Follow up Brief Note Current Diet TF-Vital High Protein @ 50 ml/ hr (since D 06/29). Height 5 ft 5 in Weight 86.183 kg [place] Body Weight (kg) 56.81 BMI 31.6 Weight change and time frame No body weight change reported . Weight Status Obese Subjective/Other Information RD consult for routine F/U on Dietary advancement or TF resume. TF continuation, new formula without changes, thus, well tolerated. Percent of energy/protein needs met: Prescribed Vital High Protein @ 50 ml/hr provides for energy /protein needs (1,200 Kcal/105 g) during LOS. #1 Nutrition Diagnosis Inadequate oral intake Diagnosis Progress(for reassessment Continues documentation) Nutrition Intervention Nutrition Support: Continue Vital High Protein @ 50 ml/hr. Flush: 50 ml water Q 4 hr. Goal #1 Provide at least 75% of energy /protein needs through Enteral Feeding during LOS. Follow-Up By: 07/08/21 Additional Comments Continue monitoring TF tolerance and BM.
[2021-07-02] MEDS: PRAVASTATIN 40 MG TAB PO SCH (21:20)
[2021-07-03] MEDS: INSULIN LISPRO 100 UNIT/ML SUB-Q SCH ×4 (00:30→18:00)
[2021-07-03 04:55] LABS: Hematocrit 31.2 % (30.3-42.9); Hemoglobin 10.1 gm/dl (10.1-14.3)
--- NOTE | 2021-07-03 07:50 | Progress Note ---
Assessment and Plan Assessment and plan: #Acute hypercapnic respiratory failure -Currently on BiPAP, will wean as tolerated -if unable to wean, will need home O2 walk test prior to d/c -keep SpO2 >92% -continue BiPAP at night -likely 2/2 to CAP #Atrial fibrillation -rate controlled -s/p heparin gtt, eliquis started -continue metoprolol -Cardiology following, assistance appreciated #Hypertension -controlled -Lisinopril dose to be decreased due to borderline low pressures #Type 2 diabetes -controlled, glucose 143-177 -continue SSI Resolved problems #Severe hyponatremia- resolved #Acute metabolic encephalopathy- likely 2/2 hyponatremia #Urinary tract infection #Community-acquired pneumonia-s/p abx Disposition Plan: Continue medical management History Interval history: No acute events overnight. Patient on BiPAP. Comfortable. Has no complaints at this time. Hospitalist Physical - Physical exam Narrative exam: GENERAL: Well-developed well-nourished. In no acute distress. HEENT: BiPAP facemask in place. CHEST/LUNGS: Coarse breath sounds bilaterally. HEART/CARDIOVASCULAR: RRR. No murmur, rubs or gallops appreciated. ABDOMEN: +BS. NT/ND. NEURO: No focal motor deficit. Follows all commands. PSYCH: Cooperative. - Constitutional Vitals: Temp Pulse Resp BP Pulse Ox 97.5 F L 75 17 113/53 98 07/03/21 04:03 07/03/21 04:03 07/03/21 04:03 07/03/21 04:03 07/03/21 04:49 General appearance: Present: no acute distress, obese HEART Score - HEART Score Troponin: Troponin T < 0.010 ng/mL (0.00-0.029) 06/22/21 07:58 Results - Labs CBC & Chem 7: 07/03/21 04:09 07/02/21 05:23 Labs: Laboratory Last Values WBC 10.3 K/mm3 (4.5-11.0) 07/02/21 05:23 RBC 3.35 M/mm3 (3.65-5.03) L 07/02/21 05:23 Hgb 10.1 gm/dl (10.1-14.3) 07/03/21 04:09 Hct 31.2 % (30.3-42.9) 07/03/21 04:09 MCV 93 fl (79-97) 07/02/21 05:23 MCH 30 pg (28-32) 07/02/21 05:23 MCHC 33 % (30-34) 07/02/21 05:23 RDW 13.9 % (13.2-15.2) 07/02/21 05:23 Plt Count 300 K/mm3 (140-440) 07/03/21 04:09 Lymph % (Auto) 8.6 % (13.4-35.0) L 06/30/21 04:20 [place] % (Auto) 8.3 % (0.0-7.3) H 06/30/21 04:20 Eos % (Auto) 0.5 % (0.0-4.3) 06/30/21 04:20 Baso % (Auto) 0.0 % (0.0-1.8) 06/30/21 04:20 Lymph # (Auto) 1.0 K/mm3 (1.2-5.4) L 06/30/21 04:20 [place] # (Auto) 1.0 K/mm3 (0.0-0.8) H 06/30/21 04:20 Eos # (Auto) 0.1 K/mm3 (0.0-0.4) 06/30/21 04:20 Baso # (Auto) 0.0 K/mm3 (0.0-0.1) 06/30/21 04:20 Add Manual Diff Complete 06/25/21 22:55 Total Counted 100 06/25/21 22:55 Seg Neutrophils % 82.6 % (40.0-70.0) H 06/30/21 04:20 Seg Neuts % (Manual) 91.0 % (40.0-70.0) H 06/25/21 22:55 Lymphocytes % (Manual) 6.0 % (13.4-35.0) L 06/25/21 22:55 Monocytes % (Manual) 3.0 % (0.0-7.3) 06/25/21 22:55 Metamyelocytes % 1.0 % 06/24/21 05:33 Nucleated RBC % Not Reportable 06/25/21 22:55 Seg Neutrophils # 9.8 K/mm3 (1.8-7.7) H 06/30/21 04:20 Seg Neutrophils # Man 13.5 K/mm3 (1.8-7.7) H 06/25/21 22:55 Band Neutrophils # 0.0 K/mm3 06/25/21 22:55 Lymphocytes # (Manual) 0.9 K/mm3 (1.2-5.4) L 06/25/21 22:55 Abs React Lymphs (Man) 0.0 K/mm3 06/25/21 22:55 Monocytes # (Manual) 0.4 K/mm3 (0.0-0.8) 06/25/21 22:55 Eosinophils # (Manual) 0.0 K/mm3 (0.0-0.4) 06/25/21 22:55 Basophils # (Manual) 0.0 K/mm3 (0.0-0.1) 06/25/21 22:55 Metamyelocytes # 0.0 K/mm3 06/25/21 22:55 Myelocytes # 0.0 K/mm3 06/25/21 22:55 Promyelocytes # 0.0 K/mm3 06/25/21 22:55 Blast Cells # 0.0 K/mm3 06/25/21 22:55 WBC Morphology Not Reportable 06/25/21 22:55 Hypersegmented Neuts Not Reportable 06/25/21 22:55 Hyposegmented Neuts Not Reportable 06/25/21 22:55 Hypogranular Neuts Not Reportable 06/25/21 22:55 Smudge Cells Not Reportable 06/25/21 22:55 Toxic Granulation Not Reportable 06/25/21 22:55 Toxic Vacuolation Not Reportable 06/25/21 22:55 Dohle Bodies Not Reportable 06/25/21 22:55 Pelger-Huet Anomaly Not Reportable 06/25/21 22:55 Otf Rods Not Reportable 06/25/21 22:55 Platelet Estimate Consistent w auto 06/25/21 22:55 Clumped Platelets Not Reportable 06/25/21 22:55 Plt Clumps, EDTA Not Reportable 06/25/21 22:55 Large Platelets Not Reportable 06/25/21 22:55 Giant Platelets Not Reportable 06/25/21 22:55 Platelet Satelliting Not Reportable 06/25/21 22:55 Plt Morphology Comment Not Reportable 06/25/21 22:55 RBC Morphology Normal 06/25/21 22:55 Dimorphic RBCs Not Reportable 06/25/21 22:55 Polychromasia Not Reportable 06/25/21 22:55 Hypochromasia Not Reportable 06/25/21 22:55 Poikilocytosis Not Reportable 06/25/21 22:55 Anisocytosis Not Reportable 06/25/21 22:55 Microcytosis Not Reportable 06/25/21 22:55 Macrocytosis Not Reportable 06/25/21 22:55 Spherocytes Not Reportable 06/25/21 22:55 Pappenheimer Bodies Not Reportable 06/25/21 22:55 Sickle Cells Not Reportable 06/25/21 22:55 Target Cells Not Reportable 06/25/21 22:55 Tear Drop Cells Not Reportable 06/25/21 22:55 Ovalocytes Not Reportable 06/25/21 22:55 Helmet Cells Not Reportable 06/25/21 22:55 [place] Bodies Not Reportable 06/25/21 22:55 Stem Rings Not Reportable 06/25/21 22:55 [place] Cells Not Reportable 06/25/21 22:55 Bite Cells Not Reportable 06/25/21 22:55 Crenated Cell Not Reportable 06/25/21 22:55 Elliptocytes Not Reportable 06/25/21 22:55 Acanthocytes (Spur) Not Reportable 06/25/21 22:55 Rouleaux Not Reportable 06/25/21 22:55 Hemoglobin C Crystals Not Reportable 06/25/21 22:55 Schistocytes Not Reportable 06/25/21 22:55 Malaria parasites Not Reportable 06/25/21 22:55 Steve Bodies Not Reportable 06/25/21 22:55 Hem Pathologist Commnt No 06/25/21 22:55 PT 13.0 Sec. (12.2-14.9) 07/02/21 05:30 INR 0.88 (0.87-1.13) 07/02/21 05:30 APTT TNR 07/02/21 05:30 Thrombin Time 15.9 Sec. (15.1-19.6) 06/22/21 07:58 D-Dimer 390 ng/mlDDU (0-234) H 06/22/21 08:56 Heparin Anti-Xa Level 1.90 U.I./ml (0.3-0.7) H 07/03/21 04:09 ABG pH 7.480 (7.320-7.450) H 06/27/21 05:06 POC ABG pCO2 38.0 mmHg (32.0-48.0) 06/27/21 05:06 ABG pCO2 35.8 mm Hg 06/26/21 10:00 POC ABG pO2 93.6 mmHg (83-108) 06/27/21 05:06 ABG pO2 125.4 mm Hg (80.0-90.0) H 06/26/21 10:00 POC ABG HCO3 27.7 06/27/21 05:06 ABG HCO3 25.3 mmol/L (20.0-26.0) 06/26/21 10:00 ABG O2 Saturation 98.0 (0-100) 06/27/21 05:06 ABG O2 Content 17.1 (0.0-44) 06/26/21 10:00 POC ABG Base Excess 4.0 06/27/21 05:06 ABG Base Excess 1.9 mmol/L (-2.0-3.0) 06/26/21 10:00 ABG Hemoglobin 11.9 (12.0-17.5) L 06/27/21 05:06 ABG Oxyhemoglobin 96.8 (94-98) 06/27/21 05:06 ABG Carboxyhemoglobin 1.1 % (0.0-5.0) 06/26/21 10:00 ABG Methemoglobin 0.3 (0.0-1.5) 06/27/21 05:06 ABG Sodium 123.5 mmol/L (136.0-145.0) L 06/27/21 05:06 ABG Potassium 3.7 mmol/L (3.40-4.50) 06/27/21 05:06 ABG Chloride 91.0 mmol/L (98-107) L 06/27/21 05:06 ABG Glucose 328 mg/dL (65-95) H 06/27/21 05:06 Oxyhemoglobin 97.0 % (95.0-99.0) 06/26/21 10:00 Carboxyhemoglobin 0.9 (0.5-1.5) 06/27/21 05:06 FiO2 50 % 06/26/21 10:00 FiO2 % 40.0 06/27/21 05:06 Sodium 140 mmol/L (137-145) 07/02/21 05:23 Potassium 3.8 mmol/L (3.6-5.0) 07/02/21 05:23 Chloride 100.4 mmol/L (98-107) 07/02/21 05:23 Carbon Dioxide 33 mmol/L (22-30) H 07/02/21 05:23 Anion Gap 10 mmol/L 07/02/21 05:23 BUN 21 mg/dL (7-17) H 07/02/21 05:23 Creatinine 0.5 mg/dL (0.6-1.2) L 07/02/21 05:23 Estimated GFR > 60 ml/min 07/02/21 05:23 BUN/Creatinine Ratio 42 % 07/02/21 05:23 Glucose 122 mg/dL (65-100) H 07/02/21 05:23 POC Glucose 143 mg/dL (70-105) H 07/02/21 23:27 Hemoglobin A1c 6.6 % (4-6) H 06/23/21 05:29 Osmolality 240 Mosm/kg 06/22/21 23:24 Lactic Acid 1.60 mmol/L (0.7-2.0) 06/25/21 22:55 Uric Acid 3.2 mg/dL (3.5-7.6) L 06/23/21 05:29 Calcium 9.5 mg/dL (8.4-10.2) 07/02/21 05:23 Phosphorus 3.10 mg/dL (2.5-4.5) 07/02/21 05:23 Magnesium 1.80 mg/dL (1.7-2.3) 07/02/21 05:23 Ferritin 102.1 ng/mL (10.0-200.0) 06/22/21 08:56 Total Bilirubin 0.30 mg/dL (0.1-1.2) 06/29/21 05:13 Direct Bilirubin < 0.2 mg/dL (0-0.2) 06/26/21 04:32 Indirect Bilirubin 0.1 mg/dL 06/26/21 04:32 AST 12 units/L (5-40) 06/29/21 05:13 ALT 9 units/L (7-56) 06/29/21 05:13 Alkaline Phosphatase 31 units/L (35-129) L 06/29/21 05:13 Lactate Dehydrogenase 220 units/L (91-180) H 06/22/21 08:56 Troponin T < 0.010 ng/mL (0.00-0.029) 06/22/21 07:58 C-Reactive Protein 5.40 mg/dL (0.00-1.30) H 06/22/21 08:56 Total Protein 3.3 g/dL (6.3-8.2) L D 06/29/21 05:13 Albumin 1.9 g/dL (3.9-5) L 06/29/21 05:13 Albumin/Globulin Ratio 1.4 % 06/29/21 05:13 Procalcitonin < 0.05 ng/mL (<0.15) 06/22/21 08:56 TSH 1.070 mlU/mL (0.270-4.200) 06/22/21 07:58 Total Cortisol 36.4 mcg/dL () 06/26/21 16:06 Arterial Blood Glucose 328 mg/dL (65-95) H 06/27/21 05:06 Arterial Blood Ionized Calcium 4.9 mg/dL (4.6-5.3) 06/27/21 05:06 Urine Color Yellow (Yellow) 06/26/21 09:48 Urine Turbidity Slightly-cloudy (Clear) 06/26/21 09:48 Urine pH 6.0 (5.0-7.0) 06/26/21 09:48 Ur Specific [place] 1.014 (1.003-1.030) 06/26/21 09:48 Urine Protein 30 mg/dl mg/dL (Negative) 06/26/21 09:48 Urine Glucose (UA) 50 mg/dL (Negative) 06/26/21 09:48 Urine Ketones 20 mg/dL (Negative) 06/26/21 09:48 Urine Blood Mod (Negative) 06/26/21 09:48 Urine Nitrite Neg (Negative) 06/26/21 09:48 Urine Bilirubin Neg (Negative) 06/26/21 09:48 Urine Urobilinogen < 2.0 mg/dL (<2.0) 06/26/21 09:48 Ur Leukocyte Esterase Mod (Negative) 06/26/21 09:48 Urine WBC (Auto) 69.0 /HPF (0.0-6.0) H 06/26/21 09:48 Urine RBC (Auto) 29.0 /HPF (0.0-6.0) 06/26/21 09:48 U Epithel Cells (Auto) 1.0 /HPF (0-13.0) 06/26/21 09:48 Urine Bacteria (Auto) 4+ /HPF (Negative) 06/26/21 09:48 Ur Transition Epith Cell 1 /HPF 06/22/21 11:47 Hyaline Casts 5 /LPF 06/22/21 11:47 Urine Mucus Few /HPF 06/26/21 09:48 Urine Yeast (Budding) 3+ /HPF 06/26/21 09:48 Urine Osmolality 571 Mosm/kg 06/22/21 11:47 Urine Sodium 25 mmol/L 06/22/21 11:47 Coronavirus (PCR) Negative (Negative) 06/22/21 Unknown Martines/IV: Voiding Method External Female Catheter Active Medications - Current Medications Current Medications: Generic Name Dose Route Start Last Admin Trade Name Freq PRN Reason Stop Dose Admin Acetaminophen 650 mg 06/22/21 22:21 07/01/21 13:10 Acetaminophen 325 Mg Tab PO 650 mg Q4H PRN Administration Pain MILD(1-3)/Fever >100.5/NAVA Lipase/Protease/Amylase 1 each 06/29/21 16:20 Lipase 10,500/Protease 25,000/Amylase 43,750 (Units) Dr Castellanos FEEDTUBE PRN PRN For Clogged Feeding Tube Apixaban 5 mg 07/02/21 12:00 07/02/21 21:20 Apixaban 5 Mg Tab PO 5 mg Q12HR JUDY Administration Protocol Clopidogrel Bisulfate 75 mg 06/23/21 10:00 07/02/21 09:35 Clopidogrel 75 Mg Tab PO 75 mg DAILY JUDY Administration Docusate Sodium 100 mg 06/25/21 22:00 07/02/21 21:20 Docusate Sodium 100 Mg/10 Ml Oral Liqd PO 100 mg BID JUDY Administration Famotidine 20 mg 06/29/21 22:00 07/02/21 21:20 Famotidine 20 Mg Tab FEEDTUBE 20 mg BID JUDY Administration Insulin Human Lispro 0 unit 06/26/21 12:00 07/03/21 00:30 Insulin Lispro 100 Unit/Ml SUB-Q Not Given Q6HR [facility] Protocol Lisinopril 20 mg 07/01/21 12:00 07/02/21 09:35 Lisinopril 20 Mg Tab PO 20 mg QDAY JUDY Administration Metoclopramide HCl 10 mg 06/22/21 22:21 Metoclopramide 10 Mg/2 Ml Inj IV Q6H PRN Nausea And Vomiting Metoprolol Tartrate 50 mg 07/01/21 14:00 07/02/21 21:21 Metoprolol Tartrate 25 Mg Tab PO Not Given TID JUDY Ondansetron HCl 4 mg 06/22/21 22:21 Ondansetron 4 Mg/2 Ml Inj IV Q8H PRN Nausea And Vomiting Pravastatin Sodium 40 mg 06/23/21 22:00 07/02/21 21:20 Pravastatin 40 Mg Tab PO 40 mg QHS JUDY Administration Simple Syrup 15 ml 06/29/21 16:20 Simple Syrup 15 Ml FEEDTUBE PRN PRN Hypoglycemia Simple Syrup 30 ml 06/29/21 16:20 Simple Syrup 15 Ml FEEDTUBE PRN PRN Hypoglycemia Sodium Bicarbonate 325 mg 06/29/21 16:20 Sodium Bicarbonate 325 Mg Tab FEEDTUBE PRN PRN For Clogged Feeding Tube Sodium Chloride 10 ml 06/23/21 10:00 07/02/21 21:20 Sodium Chloride 0.9% 10 Ml Flush Syringe IV 10 ml BID JUDY Administration Sodium Chloride 10 ml 06/22/21 22:21 Sodium Chloride 0.9% 10 Ml Flush Syringe IV PRN PRN LINE FLUSH Nutrition/Malnutrition Assess - Dietary Evaluation Nutrition/Malnutrition Findings: Nutrition Notes Start: 06/26/21 11:01 Freq: Status: Active Protocol: Document 07/01/21 18:17 VINCENZO (Rec: 07/01/21 18:27 VINCENZO [id number]) Nutrition Notes Initial or Follow up Brief Note Current Diet TF-Vital High Protein @ 50 ml/ hr (since D 06/29). Height 5 ft 5 in Weight 86.183 kg Tower Body Weight (kg) 56.81 BMI 31.6 Weight change and time frame No body weight change reported . Weight Status Obese Subjective/Other Information RD consult for routine F/U on Dietary advancement or TF resume. TF continuation, new formula without changes, thus, well tolerated. Percent of energy/protein needs met: Prescribed Vital High Protein @ 50 ml/hr provides for energy /protein needs (1,200 Kcal/105 g) during LOS. #1 Nutrition Diagnosis Inadequate oral intake Diagnosis Progress(for reassessment Continues documentation) Nutrition Intervention Nutrition Support: Continue Vital High Protein @ 50 ml/hr. Flush: 50 ml water Q 4 hr. Goal #1 Provide at least 75% of energy /protein needs through Enteral Feeding during LOS. Follow-Up By: 07/08/21 Additional Comments Continue monitoring TF tolerance and BM.
[2021-07-03] MEDS ORDERED: LISINOPRIL 20 MG TAB PO SCH (08:47)
[2021-07-03] MEDS ORDERED: METOPROLOL TARTRATE 25 MG TAB PO SCH ×2 (09:00→12:00)
[2021-07-03] MEDS: DOCUSATE SODIUM 100 MG/10 ML ORAL LIQD PO SCH ×2 (09:56→21:42)
[2021-07-03] MEDS: APIXABAN 5 MG TAB PO SCH ×2 (09:57→21:42)
[2021-07-03] MEDS: CLOPIDOGREL 75 MG TAB PO SCH (09:57)
[2021-07-03] MEDS: FAMOTIDINE 20 MG TAB FEEDTUBE SCH ×2 (09:57→21:42)
[2021-07-03] MEDS: LISINOPRIL 10 MG TAB PO SCH (10:03)
--- NOTE | 2021-07-03 10:07 | Progress Note ---
Assessment and Plan 65 y/o female with symptomatic hyponatremia of unknown etiology 07/03/21: Continue NIV at night. Unfortunately, based on CM note, it appears she has no funding but really needs NIV therapy. Wean supplemental O2 as tolerated and will need walk test prior to discharge. Suggest PT/OT consult as well. 07/02/21: stable pulm [place] now for transfer to floor, should have tele. COntinue bipap at night and pRN. CM investigating funding as she will need NIV at discharge. 07/01/21: Will need NIV for night time and PRN use at home. Will continue bipap QHS and PRN here. Ok with transfer to step down for at least 24 hours and then to floor. Rate control per cards. Ok to restart feeds as well. Will continue to follow. CM to further investigate funding 06/30/21: Will give break off bipap for at least an hour and monitor mental state hourly. In the event she requires continuous bipap again, then will discuss with patient and family () the Idea of trach, trach care and what that could mean for her in the future. Cardiology has ordered PO meds. We will attempt to give those but we had changed them back to IV given the likelihood she is going to require bipap again. Continue ICU care. 06/29/21: Will keep patient on continuous bipap at least until tomorrow morning. Try off Bipap again. If she fails will reach out to surgery as patient would likely need trach. Biggest question is why now (for CO2 retention.) Per cards echo is normal and when asked no prior history of RADHA. Will keep NPO so will nee to Continue Amio drip. Will place on scheduled lopressor since we cannot give oral meds at this time. 06/26/21: Transfer on hold. Follow up repeat ABG. Wean vasopressors for maps >65. Call renal in regards to Na since no real improvement with samsaca. Place [place]. If 3% is needed again, please give through central line. 06/25/21: Transferring to floor. Suggest remote tele. Wean FiO2 as tolerated. Will continue to follow. 06/24/21: Given Na greater than 120 and symptoms continue to improve, no objection to down grade to floor status. Suggest either tele floor or remote tele. Follow up renal recs. 1. Follow up renal recs 2. Yesterday placed patient on normal saline but now that 3% is being given will discontinue 3. q6 hour Chemistries given low chloride as well 4. Frequent neuro checks given rising na 5. Guarded prognosis. CCT 31minutes. Subjective Date of service: 07/03/21 Principal diagnosis: AF w RVR Interval history: No acute events. Transferred up to Tele floor. Wore bipap last night. Objective Vital Signs - 12hr 07/02/21 07/03/21 07/03/21 23:29 04:03 04:49 Temperature 97.7 F 97.5 F L Pulse Rate 107 H 75 Respiratory 23 17 Rate Blood Pressure 139/66 113/53 O2 Sat by Pulse 90 98 98 Oximetry Constitutional: other (critically ill on ventilator) Eyes: non-icteric Neck: supple Effort: normal Ascultation: Bilateral: other (coarse BS bilaterally) Cardiovascular: regular rate and rhythm (ir/ir, no mrg) Gastrointestinal: normoactive bowel sounds, soft, non-distended Integumentary: normal Extremities: no cyanosis, no edema, pink and warm Neurologic: normal mental status, non-focal exam, pupils equal and round, CN II- XII normal Psychiatric: mood appropriate, affect normal CBC and BMP: 07/03/21 04:09 07/02/21 05:23 ABG, PT/INR, D-dimer: ABG ABG pH 7.480 (7.320-7.450) H 06/27/21 05:06 POC ABG pCO2 38.0 mmHg (32.0-48.0) 06/27/21 05:06 ABG pCO2 35.8 mm Hg 06/26/21 10:00 POC ABG pO2 93.6 mmHg (83-108) 06/27/21 05:06 ABG pO2 125.4 mm Hg (80.0-90.0) H 06/26/21 10:00 POC ABG HCO3 27.7 06/27/21 05:06 ABG O2 Saturation 98.0 (0-100) 06/27/21 05:06 PT/INR, D-dimer PT 13.0 Sec. (12.2-14.9) 07/02/21 05:30 INR 0.88 (0.87-1.13) 07/02/21 05:30 D-Dimer 390 ng/mlDDU (0-234) H 06/22/21 08:56 Abnormal lab findings: Abnormal Labs 06/22/21 06/22/21 06/22/21 07:58 07:58 07:58 WBC 13.0 H RBC Hgb MCHC 35 H Lymph % (Auto) 6.3 L [place] % (Auto) 7.4 H Lymph # (Auto) 0.8 L [place] # (Auto) 1.0 H Seg Neutrophils % 85.5 H Seg Neuts % (Manual) Lymphocytes % (Manual) Seg Neutrophils # 11.1 H Seg Neutrophils # Man Lymphocytes # (Manual) PT 11.8 L INR 0.78 L D-Dimer Heparin Anti-Xa Level ABG pH POC ABG pCO2 ABG pO2 ABG HCO3 ABG O2 Saturation ABG Base Excess ABG Hemoglobin ABG Oxyhemoglobin ABG Sodium ABG Chloride ABG Glucose Sodium 107 L* Potassium 2.7 L* Chloride 60.0 L Carbon Dioxide 32 H BUN Creatinine 0.5 L Glucose 177 H POC Glucose Hemoglobin A1c Lactic Acid Uric Acid Calcium Phosphorus Magnesium Alkaline Phosphatase Lactate Dehydrogenase C-Reactive Protein Total Protein Albumin Arterial Blood Glucose Urine WBC (Auto) 06/22/21 06/22/21 06/22/21 08:56 08:56 08:56 WBC RBC Hgb MCHC Lymph % (Auto) [place] % (Auto) Lymph # (Auto) [place] # (Auto) Seg Neutrophils % Seg Neuts % (Manual) Lymphocytes % (Manual) Seg Neutrophils # Seg Neutrophils # Man Lymphocytes # (Manual) PT INR D-Dimer 390 H Heparin Anti-Xa Level ABG pH POC ABG pCO2 ABG pO2 ABG HCO3 ABG O2 Saturation ABG Base Excess ABG Hemoglobin ABG Oxyhemoglobin ABG Sodium ABG Chloride ABG Glucose Sodium Potassium Chloride Carbon Dioxide BUN Creatinine Glucose 179 H POC Glucose Hemoglobin A1c Lactic Acid 2.10 H* Uric Acid Calcium Phosphorus Magnesium Alkaline Phosphatase Lactate Dehydrogenase 220 H C-Reactive Protein 5.40 H Total Protein Albumin Arterial Blood Glucose Urine WBC (Auto) 06/22/21 06/22/21 06/22/21 08:56 11:47 14:20 WBC RBC Hgb MCHC Lymph % (Auto) [place] % (Auto) Lymph # (Auto) [place] # (Auto) Seg Neutrophils % Seg Neuts % (Manual) Lymphocytes % (Manual) Seg Neutrophils # Seg Neutrophils # Man Lymphocytes # (Manual) PT INR D-Dimer Heparin Anti-Xa Level ABG pH POC ABG pCO2 ABG pO2 ABG HCO3 ABG O2 Saturation ABG Base Excess ABG Hemoglobin ABG Oxyhemoglobin ABG Sodium ABG Chloride ABG Glucose Sodium 104 L* 112 L* D Potassium 3.2 L 2.7 L* Chloride 60.0 L 65.2 L Carbon Dioxide 32 H BUN Creatinine 0.4 L 0.4 L Glucose 181 H 119 H POC Glucose Hemoglobin A1c Lactic Acid Uric Acid Calcium Phosphorus Magnesium Alkaline Phosphatase Lactate Dehydrogenase C-Reactive Protein Total Protein Albumin Arterial Blood Glucose Urine WBC (Auto) 11.0 H 06/22/21 06/23/21 06/23/21 18:19 05:29 05:29 WBC 12.4 H RBC Hgb MCHC Lymph % (Auto) 5.8 L [place] % (Auto) Lymph # (Auto) 0.7 L [place] # (Auto) 0.9 H Seg Neutrophils % 87.1 H Seg Neuts % (Manual) Lymphocytes % (Manual) Seg Neutrophils # 10.8 H Seg Neutrophils # Man Lymphocytes # (Manual) PT INR D-Dimer Heparin Anti-Xa Level ABG pH POC ABG pCO2 ABG pO2 ABG HCO3 ABG O2 Saturation ABG Base Excess ABG Hemoglobin ABG Oxyhemoglobin ABG Sodium ABG Chloride ABG Glucose Sodium 112 L* 112 L* Potassium 2.7 L* 2.6 L* Chloride 65.8 L 67.5 L Carbon Dioxide 31 H 33 H BUN Creatinine 0.3 L 0.4 L Glucose POC Glucose Hemoglobin A1c Lactic Acid Uric Acid 3.2 L Calcium Phosphorus Magnesium Alkaline Phosphatase Lactate Dehydrogenase C-Reactive Protein Total Protein Albumin Arterial Blood Glucose Urine WBC (Auto) 06/23/21 06/23/21 06/23/21 05:29 05:29 12:11 WBC RBC Hgb MCHC Lymph % (Auto) [place] % (Auto) Lymph # (Auto) [place] # (Auto) Seg Neutrophils % Seg Neuts % (Manual) Lymphocytes % (Manual) Seg Neutrophils # Seg Neutrophils # Man Lymphocytes # (Manual) PT INR D-Dimer Heparin Anti-Xa Level ABG pH POC ABG pCO2 ABG pO2 ABG HCO3 ABG O2 Saturation ABG Base Excess ABG Hemoglobin ABG Oxyhemoglobin ABG Sodium ABG Chloride ABG Glucose Sodium 113 L* Potassium 2.6 L* Chloride 69.7 L Carbon Dioxide BUN Creatinine 0.4 L Glucose 106 H POC Glucose Hemoglobin A1c 6.6 H Lactic Acid Uric Acid Calcium Phosphorus Magnesium 1.50 L Alkaline Phosphatase Lactate Dehydrogenase C-Reactive Protein Total Protein Albumin Arterial Blood Glucose Urine WBC (Auto) 06/23/21 06/24/21 06/24/21 17:43 00:43 00:45 WBC RBC Hgb MCHC Lymph % (Auto) [place] % (Auto) Lymph # (Auto) [place] # (Auto) Seg Neutrophils % Seg Neuts % (Manual) Lymphocytes % (Manual) Seg Neutrophils # Seg Neutrophils # Man Lymphocytes # (Manual) PT INR D-Dimer Heparin Anti-Xa Level ABG pH POC ABG pCO2 ABG pO2 ABG HCO3 ABG O2 Saturation ABG Base Excess ABG Hemoglobin ABG Oxyhemoglobin ABG Sodium ABG Chloride ABG Glucose Sodium 117 L* 119 L* Potassium Chloride 74.9 L 79.6 L Carbon Dioxide 32 H BUN Creatinine 0.3 L 0.4 L Glucose 125 H 116 H POC Glucose 117 H Hemoglobin A1c Lactic Acid Uric Acid Calcium Phosphorus Magnesium Alkaline Phosphatase Lactate Dehydrogenase C-Reactive Protein Total Protein Albumin Arterial Blood Glucose Urine WBC (Auto) 06/24/21 06/24/21 06/24/21 05:33 05:33 06:11 WBC 12.0 H RBC Hgb MCHC Lymph % (Auto) [place] % (Auto) Lymph # (Auto) [place] # (Auto) Seg Neutrophils % Seg Neuts % (Manual) 95.0 H Lymphocytes % (Manual) 2.0 L Seg Neutrophils # Seg Neutrophils # Man 11.4 H Lymphocytes # (Manual) 0.2 L PT INR D-Dimer Heparin Anti-Xa Level ABG pH POC ABG pCO2 ABG pO2 ABG HCO3 ABG O2 Saturation ABG Base Excess ABG Hemoglobin ABG Oxyhemoglobin ABG Sodium ABG Chloride ABG Glucose Sodium 122 L Potassium Chloride 80.2 L Carbon Dioxide 31 H BUN Creatinine 0.3 L Glucose 143 H POC Glucose 141 H Hemoglobin A1c Lactic Acid Uric Acid Calcium Phosphorus Magnesium Alkaline Phosphatase Lactate Dehydrogenase C-Reactive Protein Total Protein Albumin Arterial Blood Glucose Urine WBC (Auto) 06/24/21 06/24/21 06/24/21 16:25 18:16 23:49 WBC RBC Hgb MCHC Lymph % (Auto) [place] % (Auto) Lymph # (Auto) [place] # (Auto) Seg Neutrophils % Seg Neuts % (Manual) Lymphocytes % (Manual) Seg Neutrophils # Seg Neutrophils # Man Lymphocytes # (Manual) PT INR D-Dimer Heparin Anti-Xa Level ABG pH POC ABG pCO2 ABG pO2 ABG HCO3 ABG O2 Saturation ABG Base Excess ABG Hemoglobin ABG Oxyhemoglobin ABG Sodium ABG Chloride ABG Glucose Sodium 122 L 123 L Potassium Chloride 78.9 L Carbon Dioxide 32 H BUN Creatinine 0.5 L D Glucose 141 H POC Glucose 162 H Hemoglobin A1c Lactic Acid Uric Acid Calcium Phosphorus Magnesium Alkaline Phosphatase Lactate Dehydrogenase C-Reactive Protein Total Protein Albumin Arterial Blood Glucose Urine WBC (Auto) 06/25/21 06/25/21 06/25/21 00:18 03:06 06:15 WBC RBC Hgb MCHC Lymph % (Auto) [place] % (Auto) Lymph # (Auto) [place] # (Auto) Seg Neutrophils % Seg Neuts % (Manual) Lymphocytes % (Manual) Seg Neutrophils # Seg Neutrophils # Man Lymphocytes # (Manual) PT INR D-Dimer Heparin Anti-Xa Level ABG pH POC ABG pCO2 ABG pO2 ABG HCO3 ABG O2 Saturation ABG Base Excess ABG Hemoglobin ABG Oxyhemoglobin ABG Sodium ABG Chloride ABG Glucose Sodium 122 L Potassium Chloride Carbon Dioxide BUN Creatinine Glucose POC Glucose 151 H 149 H Hemoglobin A1c Lactic Acid Uric Acid Calcium Phosphorus Magnesium Alkaline Phosphatase Lactate Dehydrogenase C-Reactive Protein Total Protein Albumin Arterial Blood Glucose Urine WBC (Auto) 06/25/21 06/25/21 06/25/21 10:19 13:42 13:42 WBC RBC Hgb MCHC Lymph % (Auto) [place] % (Auto) Lymph # (Auto) [place] # (Auto) Seg Neutrophils % Seg Neuts % (Manual) Lymphocytes % (Manual) Seg Neutrophils # Seg Neutrophils # Man Lymphocytes # (Manual) PT INR 0.85 L D-Dimer Heparin Anti-Xa Level ABG pH POC ABG pCO2 ABG pO2 ABG HCO3 ABG O2 Saturation ABG Base Excess ABG Hemoglobin ABG Oxyhemoglobin ABG Sodium ABG Chloride ABG Glucose Sodium 123 L Potassium Chloride 78.5 L Carbon Dioxide 32 H BUN 19 H Creatinine Glucose 193 H POC Glucose 152 H Hemoglobin A1c Lactic Acid Uric Acid Calcium Phosphorus Magnesium Alkaline Phosphatase Lactate Dehydrogenase C-Reactive Protein Total Protein Albumin Arterial Blood Glucose Urine WBC (Auto) 06/25/21 06/25/21 06/25/21 15:13 15:21 19:49 WBC RBC Hgb MCHC Lymph % (Auto) [place] % (Auto) Lymph # (Auto) [place] # (Auto) Seg Neutrophils % Seg Neuts % (Manual) Lymphocytes % (Manual) Seg Neutrophils # Seg Neutrophils # Man Lymphocytes # (Manual) PT INR D-Dimer Heparin Anti-Xa Level < 0.10 L ABG pH POC ABG pCO2 ABG pO2 ABG HCO3 ABG O2 Saturation ABG Base Excess ABG Hemoglobin ABG Oxyhemoglobin ABG Sodium ABG Chloride ABG Glucose Sodium Potassium Chloride Carbon Dioxide BUN Creatinine Glucose POC Glucose 221 H 194 H Hemoglobin A1c Lactic Acid Uric Acid Calcium Phosphorus Magnesium Alkaline Phosphatase Lactate Dehydrogenase C-Reactive Protein Total Protein Albumin Arterial Blood Glucose Urine WBC (Auto) 06/25/21 06/25/21 06/25/21 21:21 22:55 22:55 WBC 14.8 H RBC Hgb MCHC Lymph % (Auto) [place] % (Auto) Lymph # (Auto) [place] # (Auto) Seg Neutrophils % Seg Neuts % (Manual) 91.0 H Lymphocytes % (Manual) 6.0 L Seg Neutrophils # Seg Neutrophils # Man 13.5 H Lymphocytes # (Manual) 0.9 L PT INR D-Dimer Heparin Anti-Xa Level ABG pH 7.086 L POC ABG pCO2 104.9 H ABG pO2 ABG HCO3 ABG O2 Saturation ABG Base Excess ABG Hemoglobin ABG Oxyhemoglobin 92.4 L ABG Sodium 123.4 L ABG Chloride 81.0 L ABG Glucose 225 H Sodium 124 L Potassium Chloride 82.9 L Carbon Dioxide BUN 22 H Creatinine Glucose 226 H POC Glucose Hemoglobin A1c Lactic Acid Uric Acid Calcium 8.2 L Phosphorus 4.70 H Magnesium Alkaline Phosphatase Lactate Dehydrogenase C-Reactive Protein Total Protein Albumin Arterial Blood Glucose 225 H Urine WBC (Auto) 06/26/21 06/26/21 06/26/21 00:35 02:58 04:32 WBC RBC Hgb MCHC Lymph % (Auto) [place] % (Auto) Lymph # (Auto) [place] # (Auto) Seg Neutrophils % Seg Neuts % (Manual) Lymphocytes % (Manual) Seg Neutrophils # Seg Neutrophils # Man Lymphocytes # (Manual) PT INR D-Dimer Heparin Anti-Xa Level ABG pH POC ABG pCO2 ABG pO2 439.6 H ABG HCO3 30.0 H ABG O2 Saturation 99.6 H ABG Base Excess 3.3 H ABG Hemoglobin ABG Oxyhemoglobin ABG Sodium ABG Chloride ABG Glucose Sodium 123 L Potassium Chloride 79.2 L Carbon Dioxide BUN 26 H Creatinine Glucose 202 H POC Glucose 227 H Hemoglobin A1c Lactic Acid Uric Acid Calcium Phosphorus Magnesium Alkaline Phosphatase Lactate Dehydrogenase C-Reactive Protein Total Protein 5.9 L Albumin 2.8 L Arterial Blood Glucose Urine WBC (Auto) 06/26/21 06/26/21 06/26/21 05:53 09:14 09:48 WBC RBC Hgb MCHC Lymph % (Auto) [place] % (Auto) Lymph # (Auto) [place] # (Auto) Seg Neutrophils % Seg Neuts % (Manual) Lymphocytes % (Manual) Seg Neutrophils # Seg Neutrophils # Man Lymphocytes # (Manual) PT INR D-Dimer Heparin Anti-Xa Level ABG pH POC ABG pCO2 ABG pO2 ABG HCO3 ABG O2 Saturation ABG Base Excess ABG Hemoglobin ABG Oxyhemoglobin ABG Sodium ABG Chloride ABG Glucose Sodium Potassium Chloride Carbon Dioxide BUN Creatinine Glucose POC Glucose 187 H 194 H Hemoglobin A1c Lactic Acid Uric Acid Calcium Phosphorus Magnesium Alkaline Phosphatase Lactate Dehydrogenase C-Reactive Protein Total Protein Albumin Arterial Blood Glucose Urine WBC (Auto) 69.0 H 06/26/21 06/26/21 06/26/21 10:00 16:06 22:34 WBC RBC Hgb MCHC Lymph % (Auto) [place] % (Auto) Lymph # (Auto) [place] # (Auto) Seg Neutrophils % Seg Neuts % (Manual) Lymphocytes % (Manual) Seg Neutrophils # Seg Neutrophils # Man Lymphocytes # (Manual) PT INR D-Dimer Heparin Anti-Xa Level ABG pH 7.467 H POC ABG pCO2 ABG pO2 125.4 H ABG HCO3 ABG O2 Saturation ABG Base Excess ABG Hemoglobin ABG Oxyhemoglobin ABG Sodium ABG Chloride ABG Glucose Sodium 128 L Potassium Chloride 88.6 L Carbon Dioxide BUN 32 H Creatinine Glucose 161 H POC Glucose 231 H Hemoglobin A1c Lactic Acid Uric Acid Calcium Phosphorus Magnesium Alkaline Phosphatase Lactate Dehydrogenase C-Reactive Protein Total Protein Albumin Arterial Blood Glucose Urine WBC (Auto) 06/26/21 06/27/21 06/27/21 23:32 05:06 06:00 WBC 12.0 H RBC Hgb MCHC Lymph % (Auto) [place] % (Auto) Lymph # (Auto) [place] # (Auto) Seg Neutrophils % Seg Neuts % (Manual) Lymphocytes % (Manual) Seg Neutrophils # Seg Neutrophils # Man Lymphocytes # (Manual) PT INR D-Dimer Heparin Anti-Xa Level ABG pH 7.480 H POC ABG pCO2 ABG pO2 ABG HCO3 ABG O2 Saturation ABG Base Excess ABG Hemoglobin 11.9 L ABG Oxyhemoglobin ABG Sodium 123.5 L ABG Chloride 91.0 L ABG Glucose 328 H Sodium 126 L Potassium Chloride 89.2 L Carbon Dioxide BUN 34 H Creatinine Glucose 257 H POC Glucose Hemoglobin A1c Lactic Acid Uric Acid Calcium Phosphorus Magnesium Alkaline Phosphatase Lactate Dehydrogenase C-Reactive Protein Total Protein Albumin Arterial Blood Glucose 328 H Urine WBC (Auto) 06/27/21 06/27/21 06/27/21 06:00 11:41 17:06 WBC RBC Hgb MCHC Lymph % (Auto) [place] % (Auto) Lymph # (Auto) [place] # (Auto) Seg Neutrophils % Seg Neuts % (Manual) Lymphocytes % (Manual) Seg Neutrophils # Seg Neutrophils # Man Lymphocytes # (Manual) PT INR D-Dimer Heparin Anti-Xa Level ABG pH POC ABG pCO2 ABG pO2 ABG HCO3 ABG O2 Saturation ABG Base Excess ABG Hemoglobin ABG Oxyhemoglobin ABG Sodium ABG Chloride ABG Glucose Sodium 128 L Potassium Chloride 91.4 L Carbon Dioxide BUN 36 H Creatinine Glucose 346 H POC Glucose 259 H 301 H Hemoglobin A1c Lactic Acid Uric Acid Calcium Phosphorus Magnesium Alkaline Phosphatase Lactate Dehydrogenase C-Reactive Protein Total Protein Albumin Arterial Blood Glucose Urine WBC (Auto) 06/27/21 06/28/21 06/28/21 23:36 03:00 03:00 WBC 14.9 H RBC 3.46 L Hgb MCHC Lymph % (Auto) 2.8 L [place] % (Auto) 7.5 H Lymph # (Auto) 0.4 L [place] # (Auto) 1.1 H Seg Neutrophils % 89.6 H Seg Neuts % (Manual) Lymphocytes % (Manual) Seg Neutrophils # 13.4 H Seg Neutrophils # Man Lymphocytes # (Manual) PT INR D-Dimer Heparin Anti-Xa Level ABG pH POC ABG pCO2 ABG pO2 ABG HCO3 ABG O2 Saturation ABG Base Excess ABG Hemoglobin ABG Oxyhemoglobin ABG Sodium ABG Chloride ABG Glucose Sodium 134 L Potassium Chloride 91.1 L Carbon Dioxide BUN 35 H Creatinine Glucose 235 H POC Glucose 215 H Hemoglobin A1c Lactic Acid Uric Acid Calcium Phosphorus 1.10 L Magnesium Alkaline Phosphatase Lactate Dehydrogenase C-Reactive Protein Total Protein Albumin Arterial Blood Glucose Urine WBC (Auto) 06/28/21 06/28/21 06/28/21 03:00 05:13 16:53 WBC RBC Hgb MCHC Lymph % (Auto) [place] % (Auto) Lymph # (Auto) [place] # (Auto) Seg Neutrophils % Seg Neuts % (Manual) Lymphocytes % (Manual) Seg Neutrophils # Seg Neutrophils # Man Lymphocytes # (Manual) PT INR D-Dimer Heparin Anti-Xa Level 0.27 L ABG pH POC ABG pCO2 ABG pO2 ABG HCO3 ABG O2 Saturation ABG Base Excess ABG Hemoglobin ABG Oxyhemoglobin ABG Sodium ABG Chloride ABG Glucose Sodium Potassium Chloride Carbon Dioxide BUN Creatinine Glucose POC Glucose 241 H 213 H Hemoglobin A1c Lactic Acid Uric Acid Calcium Phosphorus Magnesium Alkaline Phosphatase Lactate Dehydrogenase C-Reactive Protein Total Protein Albumin Arterial Blood Glucose Urine WBC (Auto) 06/28/21 06/29/21 06/29/21 23:32 05:13 05:13 WBC RBC Hgb MCHC Lymph % (Auto) [place] % (Auto) Lymph # (Auto) [place] # (Auto) Seg Neutrophils % Seg Neuts % (Manual) Lymphocytes % (Manual) Seg Neutrophils # Seg Neutrophils # Man Lymphocytes # (Manual) PT INR D-Dimer Heparin Anti-Xa Level 0.13 L ABG pH POC ABG pCO2 ABG pO2 ABG HCO3 ABG O2 Saturation ABG Base Excess ABG Hemoglobin ABG Oxyhemoglobin ABG Sodium ABG Chloride ABG Glucose Sodium 133 L Potassium Chloride Carbon Dioxide BUN 34 H Creatinine 0.5 L Glucose 186 H POC Glucose 236 H Hemoglobin A1c Lactic Acid Uric Acid Calcium Phosphorus 2.20 L D Magnesium Alkaline Phosphatase 31 L Lactate Dehydrogenase C-Reactive Protein Total Protein 3.3 L D Albumin 1.9 L Arterial Blood Glucose Urine WBC (Auto) 06/29/21 06/29/21 06/29/21 06:00 06:00 06:00 WBC 12.7 H RBC 3.36 L Hgb 10.0 L MCHC Lymph % (Auto) 9.5 L [place] % (Auto) 8.6 H Lymph # (Auto) [place] # (Auto) 1.1 H Seg Neutrophils % 80.4 H Seg Neuts % (Manual) Lymphocytes % (Manual) Seg Neutrophils # 10.2 H Seg Neutrophils # Man Lymphocytes # (Manual) PT INR D-Dimer Heparin Anti-Xa Level 0.22 L ABG pH POC ABG pCO2 ABG pO2 ABG HCO3 ABG O2 Saturation ABG Base Excess ABG Hemoglobin ABG Oxyhemoglobin ABG Sodium ABG Chloride ABG Glucose Sodium 134 L Potassium Chloride 97.8 L Carbon Dioxide BUN 33 H Creatinine Glucose 189 H POC Glucose Hemoglobin A1c Lactic Acid Uric Acid Calcium Phosphorus Magnesium Alkaline Phosphatase Lactate Dehydrogenase C-Reactive Protein Total Protein Albumin Arterial Blood Glucose Urine WBC (Auto) 06/29/21 06/29/21 06/30/21 12:02 17:20 04:20 WBC 11.9 H RBC 3.37 L Hgb MCHC Lymph % (Auto) 8.6 L [place] % (Auto) 8.3 H Lymph # (Auto) 1.0 L [place] # (Auto) 1.0 H Seg Neutrophils % 82.6 H Seg Neuts % (Manual) Lymphocytes % (Manual) Seg Neutrophils # 9.8 H Seg Neutrophils # Man Lymphocytes # (Manual) PT INR D-Dimer Heparin Anti-Xa Level ABG pH POC ABG pCO2 ABG pO2 ABG HCO3 ABG O2 Saturation ABG Base Excess ABG Hemoglobin ABG Oxyhemoglobin ABG Sodium ABG Chloride ABG Glucose Sodium Potassium Chloride Carbon Dioxide BUN Creatinine Glucose POC Glucose 249 H 172 H Hemoglobin A1c Lactic Acid Uric Acid Calcium Phosphorus Magnesium Alkaline Phosphatase Lactate Dehydrogenase C-Reactive Protein Total Protein Albumin Arterial Blood Glucose Urine WBC (Auto) 06/30/21 06/30/21 07/01/21 04:20 04:20 04:00 WBC RBC Hgb MCHC Lymph % (Auto) [place] % (Auto) Lymph # (Auto) [place] # (Auto) Seg Neutrophils % Seg Neuts % (Manual) Lymphocytes % (Manual) Seg Neutrophils # Seg Neutrophils # Man Lymphocytes # (Manual) PT INR D-Dimer Heparin Anti-Xa Level 0.29 L 0.26 L ABG pH POC ABG pCO2 ABG pO2 ABG HCO3 ABG O2 Saturation ABG Base Excess ABG Hemoglobin ABG Oxyhemoglobin ABG Sodium ABG Chloride ABG Glucose Sodium Potassium Chloride Carbon Dioxide BUN 30 H Creatinine 0.5 L Glucose POC Glucose Hemoglobin A1c Lactic Acid Uric Acid Calcium Phosphorus Magnesium Alkaline Phosphatase Lactate Dehydrogenase C-Reactive Protein Total Protein Albumin Arterial Blood Glucose Urine WBC (Auto) 07/01/21 07/01/21 07/01/21 04:00 06:00 08:33 WBC RBC Hgb MCHC Lymph % (Auto) [place] % (Auto) Lymph # (Auto) [place] # (Auto) Seg Neutrophils % Seg Neuts % (Manual) Lymphocytes % (Manual) Seg Neutrophils # Seg Neutrophils # Man Lymphocytes # (Manual) PT INR D-Dimer Heparin Anti-Xa Level ABG pH POC ABG pCO2 ABG pO2 ABG HCO3 ABG O2 Saturation ABG Base Excess ABG Hemoglobin ABG Oxyhemoglobin ABG Sodium ABG Chloride ABG Glucose Sodium Potassium Chloride Carbon Dioxide BUN 25 H Creatinine 0.4 L Glucose POC Glucose 69 L 131 H Hemoglobin A1c Lactic Acid Uric Acid Calcium Phosphorus Magnesium Alkaline Phosphatase Lactate Dehydrogenase C-Reactive Protein Total Protein Albumin Arterial Blood Glucose Urine WBC (Auto) 07/01/21 07/01/21 07/02/21 16:59 Unknown 05:23 WBC 12.2 H RBC 3.57 L Hgb MCHC Lymph % (Auto) [place] % (Auto) Lymph # (Auto) [place] # (Auto) Seg Neutrophils % Seg Neuts % (Manual) Lymphocytes % (Manual) Seg Neutrophils # Seg Neutrophils # Man Lymphocytes # (Manual) PT INR D-Dimer Heparin Anti-Xa Level 0.29 L ABG pH POC ABG pCO2 ABG pO2 ABG HCO3 ABG O2 Saturation ABG Base Excess ABG Hemoglobin ABG Oxyhemoglobin ABG Sodium ABG Chloride ABG Glucose Sodium Potassium Chloride Carbon Dioxide BUN Creatinine Glucose POC Glucose 109 H Hemoglobin A1c Lactic Acid Uric Acid Calcium Phosphorus Magnesium Alkaline Phosphatase Lactate Dehydrogenase C-Reactive Protein Total Protein Albumin Arterial Blood Glucose Urine WBC (Auto) 07/02/21 07/02/21 07/02/21 05:23 05:23 05:29 WBC RBC 3.35 L Hgb MCHC Lymph % (Auto) [place] % (Auto) Lymph # (Auto) [place] # (Auto) Seg Neutrophils % Seg Neuts % (Manual) Lymphocytes % (Manual) Seg Neutrophils # Seg Neutrophils # Man Lymphocytes # (Manual) PT INR D-Dimer Heparin Anti-Xa Level ABG pH POC ABG pCO2 ABG pO2 ABG HCO3 ABG O2 Saturation ABG Base Excess ABG Hemoglobin ABG Oxyhemoglobin ABG Sodium ABG Chloride ABG Glucose Sodium Potassium Chloride Carbon Dioxide 33 H BUN 21 H Creatinine 0.5 L Glucose 122 H POC Glucose 118 H Hemoglobin A1c Lactic Acid Uric Acid Calcium Phosphorus Magnesium Alkaline Phosphatase Lactate Dehydrogenase C-Reactive Protein Total Protein Albumin Arterial Blood Glucose Urine WBC (Auto) 07/02/21 07/02/21 07/02/21 11:38 18:08 23:27 WBC RBC Hgb MCHC Lymph % (Auto) [place] % (Auto) Lymph # (Auto) [place] # (Auto) Seg Neutrophils % Seg Neuts % (Manual) Lymphocytes % (Manual) Seg Neutrophils # Seg Neutrophils # Man Lymphocytes # (Manual) PT INR D-Dimer Heparin Anti-Xa Level ABG pH POC ABG pCO2 ABG pO2 ABG HCO3 ABG O2 Saturation ABG Base Excess ABG Hemoglobin ABG Oxyhemoglobin ABG Sodium ABG Chloride ABG Glucose Sodium Potassium Chloride Carbon Dioxide BUN Creatinine Glucose POC Glucose 177 H 153 H 143 H Hemoglobin A1c Lactic Acid Uric Acid Calcium Phosphorus Magnesium Alkaline Phosphatase Lactate Dehydrogenase C-Reactive Protein Total Protein Albumin Arterial Blood Glucose Urine WBC (Auto) 07/03/21 07/03/21 04:09 07:57 WBC RBC Hgb MCHC Lymph % (Auto) [place] % (Auto) Lymph # (Auto) [place] # (Auto) Seg Neutrophils % Seg Neuts % (Manual) Lymphocytes % (Manual) Seg Neutrophils # Seg Neutrophils # Man Lymphocytes # (Manual) PT INR D-Dimer Heparin Anti-Xa Level 1.90 H ABG pH POC ABG pCO2 ABG pO2 ABG HCO3 ABG O2 Saturation ABG Base Excess ABG Hemoglobin ABG Oxyhemoglobin ABG Sodium ABG Chloride ABG Glucose Sodium Potassium Chloride Carbon Dioxide BUN Creatinine Glucose POC Glucose 158 H Hemoglobin A1c Lactic Acid Uric Acid Calcium Phosphorus Magnesium Alkaline Phosphatase Lactate Dehydrogenase C-Reactive Protein Total Protein Albumin Arterial Blood Glucose Urine WBC (Auto) Allied health notes reviewed: nursing
[2021-07-03] MEDS: METOPROLOL TARTRATE 100 MG TAB PO SCH ×2 (11:28→21:47)
[2021-07-03] MEDS: METOPROLOL TARTRATE 25 MG TAB PO SCH (11:29)
--- NOTE | 2021-07-03 12:22 | Progress Note ---
Assessment and Plan Patient is 65-year-old female with a past medical history of hypertension, diabetes, and tobacco use who is brought to the ED for complaint of weakness and altered mental status that lasted 4 days prior to admission Acute Encephalopathy Symptomatic Hyponatremia-nephrology following Acute Respiratory Failure-on Bipap PNA UTI Hypotension AF with RVR (new onset) Hypokalemia (resolved) Hypomagnesemia (resolved) H/o HTN DM2 H/o Tobacco Abuse Echo reviewed - EF 60-65%, no significant valvular abnormalities. Plan: Patient is converting between A. fib and sinus rhythm Continue Eliquis for anticoagulation Increased to metoprolol 100 mg p.o. BID Decreased lisinopril 10 mg p.o. daily Patient seen in conjunction with Dr. Morrow who agrees with this plan of care. We will continue to follow - Patient Problems (1) Atrial fibrillation with RVR Current Visit: Yes Status: Acute (2) Acute metabolic encephalopathy Current Visit: Yes Status: Acute (3) Acute hyponatremia Current Visit: Yes Status: Acute (4) Community acquired pneumonia Current Visit: Yes Status: Acute (5) Hypokalemia Current Visit: Yes Status: Acute (6) Essential (primary) hypertension Current Visit: Yes Status: Acute (7) Type 2 diabetes mellitus without complications Current Visit: Yes Status: Chronic (8) Hypomagnesemia Current Visit: Yes Status: Acute (9) UTI (urinary tract infection) Current Visit: Yes Status: Acute Qualifiers: Urinary tract infection type: acute cystitis Subjective Date of service: 07/03/21 Principal diagnosis: AF w RVR Interval history: Patient has been transferred to telemetry floor. Patient in no acute Patient patient is going in and out of A. fib and sinus rhythm. Rate trending 80s to 90s Objective Vital Signs Temp Pulse Pulse Resp BP Pulse Ox 07/03/21 10:54 91 H 150/71 89 07/03/21 07:57 109 H 20 148/59 95 07/03/21 04:49 98 07/03/21 04:03 97.5 F L 75 17 113/53 98 07/02/21 23:29 97.7 F 107 H 23 139/66 90 07/02/21 21:43 107 H 26 H 95 07/02/21 21:21 93 H 140/54 07/02/21 20:55 96 07/02/21 20:00 98.1 F 22 104/54 96 07/02/21 19:47 98.1 F 93 H 22 140/54 96 07/02/21 18:01 119/59 07/02/21 16:10 102 H 27 H 138/56 07/02/21 16:00 98.5 F 102 H 102 H 27 H 94 07/02/21 15:00 87 26 H 138/56 96 07/02/21 14:00 74 23 143/62 96 07/02/21 13:17 79 143/62 07/02/21 13:00 105 H 26 H 143/62 94 - Physical Examination General: No Apparent Distress HEENT: Positive: Normocephaly, Mucus Membranes Dry Neck: Positive: neck supple, trachea midline Cardiac: Positive: Reg Rate and Rhythm, irregularly irregular Lungs: Positive: Wheezes Neuro: Positive: Grossly Intact Abdomen: Positive: Soft Skin: Negative: Rash Musculoskeletal: No Fluid Collection Extremities: Present: lower extr. pulses, warm. Absent: edema - Labs and Meds CBC 07/03/21 Range/Units 04:09 Hgb 10.1 (10.1-14.3) gm/dl Hct 31.2 (30.3-42.9) % Plt Count 300 (140-440) K/mm3 - Imaging and Cardiology EKG: report reviewed, image reviewed Echo: report reviewed - Telemetry EKG Rhythm: Sinus Rhythm - EKG Sinus rhythms and dysrhythmias: sinus rhythm Supraventricular dysrhythmia: atrial fibrillation Ventricular dysrhythmias: ventricular premature com Myocardial infarction: septal [place] (old age or ind, anterior [place] (old age or i - Allied health notes Allied health notes reviewed: nursing
[2021-07-03] MEDS: PRAVASTATIN 40 MG TAB PO SCH (21:42)
[2021-07-04] MEDS: INSULIN LISPRO 100 UNIT/ML SUB-Q SCH ×4 (00:22→17:31)
[2021-07-04] MEDS: ACETAMINOPHEN 325 MG TAB PO PRN ×2 (01:38→10:22)
[2021-07-04 06:38] LABS: Hematocrit 30.8 % (30.3-42.9); Hemoglobin 9.9 gm/dl (10.1-14.3); Mean Corpuscular HGB Conc 32 % (30-34); Mean Corpuscular Volume 93 fl (79-97); Platelet Count 304 K/mm3 (140-440); Red Blood Count 3.32 M/mm3 (3.65-5.03); Red Cell Distribution Width 13.6 % (13.2-15.2)
[2021-07-04 06:56] LABS: Blood Urea Nitrogen 35 mg/dL (7-17); Hemolysis Index 32
[2021-07-04 06:57] LABS: BUN/Creatinine Ratio 70
--- NOTE | 2021-07-04 08:39 | Progress Note ---
Assessment and Plan Assessment and plan: #Acute hypercapnic respiratory failure -Currently on BiPAP 09/02, will wean as tolerated -if unable to wean, will need home O2 walk test prior to d/c -keep SpO2 >92% -will give 20 of lasix IV to assess for improvement -likely 2/2 to CAP #Atrial fibrillation -conversion from NSR to A fib -continue metoprolol and eliquis -Cardiology following, assistance appreciated #Hypertension -controlled -continue lisinopril 10mg qday #Type 2 diabetes -controlled, glucose 155-200 -continue SSI Resolved problems #Severe hyponatremia- resolved #Acute metabolic encephalopathy- likely 2/2 hyponatremia #Urinary tract infection #Community-acquired pneumonia-s/p abx Disposition Plan: continue medical management History Interval history: No acute events overnight. Patient on BiPAP. Comfortable. She has no complaints. Hospitalist Physical - Physical exam Narrative exam: GENERAL: Well-developed well-nourished. In no acute distress. HEENT: BiPAP facemask in place. CHEST/LUNGS: Coarse breath sounds bilaterally. HEART/CARDIOVASCULAR: RRR. No murmur, rubs or gallops appreciated. ABDOMEN: +BS. NT/ND. NEURO: No focal motor deficit. Follows all commands. PSYCH: Cooperative. - Constitutional Vitals: Temp Pulse Resp BP Pulse Ox 97.4 F L 83 22 117/49 100 07/04/21 07:38 07/04/21 07:38 07/04/21 07:38 07/04/21 07:38 07/04/21 07:38 General appearance: Present: no acute distress, obese HEART Score - HEART Score Troponin: Troponin T < 0.010 ng/mL (0.00-0.029) 06/22/21 07:58 Results - Labs CBC & Chem 7: 07/04/21 05:26 07/04/21 05:26 Labs: Laboratory Last Values WBC 10.6 K/mm3 (4.5-11.0) 07/04/21 05:26 RBC 3.32 M/mm3 (3.65-5.03) L 07/04/21 05:26 Hgb 9.9 gm/dl (10.1-14.3) L 07/04/21 05:26 Hct 30.8 % (30.3-42.9) 07/04/21 05:26 MCV 93 fl (79-97) 07/04/21 05:26 MCH 30 pg (28-32) 07/04/21 05:26 MCHC 32 % (30-34) 07/04/21 05:26 RDW 13.6 % (13.2-15.2) 07/04/21 05:26 Plt Count 304 K/mm3 (140-440) 07/04/21 05:26 Lymph % (Auto) 8.6 % (13.4-35.0) L 06/30/21 04:20 [place] % (Auto) 8.3 % (0.0-7.3) H 06/30/21 04:20 Eos % (Auto) 0.5 % (0.0-4.3) 06/30/21 04:20 Baso % (Auto) 0.0 % (0.0-1.8) 06/30/21 04:20 Lymph # (Auto) 1.0 K/mm3 (1.2-5.4) L 06/30/21 04:20 [place] # (Auto) 1.0 K/mm3 (0.0-0.8) H 06/30/21 04:20 Eos # (Auto) 0.1 K/mm3 (0.0-0.4) 06/30/21 04:20 Baso # (Auto) 0.0 K/mm3 (0.0-0.1) 06/30/21 04:20 Add Manual Diff Complete 06/25/21 22:55 Total Counted 100 06/25/21 22:55 Seg Neutrophils % 82.6 % (40.0-70.0) H 06/30/21 04:20 Seg Neuts % (Manual) 91.0 % (40.0-70.0) H 06/25/21 22:55 Lymphocytes % (Manual) 6.0 % (13.4-35.0) L 06/25/21 22:55 Monocytes % (Manual) 3.0 % (0.0-7.3) 06/25/21 22:55 Metamyelocytes % 1.0 % 06/24/21 05:33 Nucleated RBC % Not Reportable 06/25/21 22:55 Seg Neutrophils # 9.8 K/mm3 (1.8-7.7) H 06/30/21 04:20 Seg Neutrophils # Man 13.5 K/mm3 (1.8-7.7) H 06/25/21 22:55 Band Neutrophils # 0.0 K/mm3 06/25/21 22:55 Lymphocytes # (Manual) 0.9 K/mm3 (1.2-5.4) L 06/25/21 22:55 Abs React Lymphs (Man) 0.0 K/mm3 06/25/21 22:55 Monocytes # (Manual) 0.4 K/mm3 (0.0-0.8) 06/25/21 22:55 Eosinophils # (Manual) 0.0 K/mm3 (0.0-0.4) 06/25/21 22:55 Basophils # (Manual) 0.0 K/mm3 (0.0-0.1) 06/25/21 22:55 Metamyelocytes # 0.0 K/mm3 06/25/21 22:55 Myelocytes # 0.0 K/mm3 06/25/21 22:55 Promyelocytes # 0.0 K/mm3 06/25/21 22:55 Blast Cells # 0.0 K/mm3 06/25/21 22:55 WBC Morphology Not Reportable 06/25/21 22:55 Hypersegmented Neuts Not Reportable 06/25/21 22:55 Hyposegmented Neuts Not Reportable 06/25/21 22:55 Hypogranular Neuts Not Reportable 06/25/21 22:55 Smudge Cells Not Reportable 06/25/21 22:55 Toxic Granulation Not Reportable 06/25/21 22:55 Toxic Vacuolation Not Reportable 06/25/21 22:55 Dohle Bodies Not Reportable 06/25/21 22:55 [place]uet Anomaly Not Reportable 06/25/21 22:55 Otf Rods Not Reportable 06/25/21 22:55 Platelet Estimate Consistent w auto 06/25/21 22:55 Clumped Platelets Not Reportable 06/25/21 22:55 Plt Clumps, EDTA Not Reportable 06/25/21 22:55 Large Platelets Not Reportable 06/25/21 22:55 Giant Platelets Not Reportable 06/25/21 22:55 Platelet Satelliting Not Reportable 06/25/21 22:55 Plt Morphology Comment Not Reportable 06/25/21 22:55 RBC Morphology Normal 06/25/21 22:55 Dimorphic RBCs Not Reportable 06/25/21 22:55 Polychromasia Not Reportable 06/25/21 22:55 Hypochromasia Not Reportable 06/25/21 22:55 Poikilocytosis Not Reportable 06/25/21 22:55 Anisocytosis Not Reportable 06/25/21 22:55 Microcytosis Not Reportable 06/25/21 22:55 Macrocytosis Not Reportable 06/25/21 22:55 Spherocytes Not Reportable 06/25/21 22:55 Pappenheimer Bodies Not Reportable 06/25/21 22:55 Sickle Cells Not Reportable 06/25/21 22:55 Target Cells Not Reportable 06/25/21 22:55 Tear Drop Cells Not Reportable 06/25/21 22:55 Ovalocytes Not Reportable 06/25/21 22:55 Helmet Cells Not Reportable 06/25/21 22:55 [place] Bodies Not Reportable 06/25/21 22:55 [place] Rings Not Reportable 06/25/21 22:55 [place] Cells Not Reportable 06/25/21 22:55 Bite Cells Not Reportable 06/25/21 22:55 Crenated Cell Not Reportable 06/25/21 22:55 Elliptocytes Not Reportable 06/25/21 22:55 Acanthocytes (Spur) Not Reportable 06/25/21 22:55 Rouleaux Not Reportable 06/25/21 22:55 Hemoglobin C Crystals Not Reportable 06/25/21 22:55 Schistocytes Not Reportable 06/25/21 22:55 Malaria parasites Not Reportable 06/25/21 22:55 Steve Bodies Not Reportable 06/25/21 22:55 Hem Pathologist Commnt No 06/25/21 22:55 PT 13.0 Sec. (12.2-14.9) 07/02/21 05:30 INR 0.88 (0.87-1.13) 07/02/21 05:30 APTT TNR 07/02/21 05:30 Thrombin Time 15.9 Sec. (15.1-19.6) 06/22/21 07:58 D-Dimer 390 ng/mlDDU (0-234) H 06/22/21 08:56 Heparin Anti-Xa Level 1.90 U.I./ml (0.3-0.7) H 07/03/21 04:09 ABG pH 7.480 (7.320-7.450) H 06/27/21 05:06 POC ABG pCO2 38.0 mmHg (32.0-48.0) 06/27/21 05:06 ABG pCO2 35.8 mm Hg 06/26/21 10:00 POC ABG pO2 93.6 mmHg (83-108) 06/27/21 05:06 ABG pO2 125.4 mm Hg (80.0-90.0) H 06/26/21 10:00 POC ABG HCO3 27.7 06/27/21 05:06 ABG HCO3 25.3 mmol/L (20.0-26.0) 06/26/21 10:00 ABG O2 Saturation 98.0 (0-100) 06/27/21 05:06 ABG O2 Content 17.1 (0.0-44) 06/26/21 10:00 POC ABG Base Excess 4.0 06/27/21 05:06 ABG Base Excess 1.9 mmol/L (-2.0-3.0) 06/26/21 10:00 ABG Hemoglobin 11.9 (12.0-17.5) L 06/27/21 05:06 ABG Oxyhemoglobin 96.8 (94-98) 06/27/21 05:06 ABG Carboxyhemoglobin 1.1 % (0.0-5.0) 06/26/21 10:00 ABG Methemoglobin 0.3 (0.0-1.5) 06/27/21 05:06 ABG Sodium 123.5 mmol/L (136.0-145.0) L 06/27/21 05:06 ABG Potassium 3.7 mmol/L (3.40-4.50) 06/27/21 05:06 ABG Chloride 91.0 mmol/L (98-107) L 06/27/21 05:06 ABG Glucose 328 mg/dL (65-95) H 06/27/21 05:06 Oxyhemoglobin 97.0 % (95.0-99.0) 06/26/21 10:00 Carboxyhemoglobin 0.9 (0.5-1.5) 06/27/21 05:06 FiO2 50 % 06/26/21 10:00 FiO2 % 40.0 06/27/21 05:06 Sodium 140 mmol/L (137-145) 07/04/21 05:26 Potassium 3.8 mmol/L (3.6-5.0) 07/04/21 05:26 Chloride 98.8 mmol/L (98-107) 07/04/21 05:26 Carbon Dioxide 36 mmol/L (22-30) H 07/04/21 05:26 Anion Gap 9 mmol/L 07/04/21 05:26 BUN 35 mg/dL (7-17) H 07/04/21 05:26 Creatinine 0.5 mg/dL (0.6-1.2) L 07/04/21 05:26 Estimated GFR > 60 ml/min 07/04/21 05:26 BUN/Creatinine Ratio 70 % 07/04/21 05:26 Glucose 149 mg/dL (65-100) H 07/04/21 05:26 POC Glucose 155 mg/dL (70-105) H 07/04/21 04:52 Hemoglobin A1c 6.6 % (4-6) H 06/23/21 05:29 Osmolality 240 Mosm/kg 06/22/21 23:24 Lactic Acid 1.60 mmol/L (0.7-2.0) 06/25/21 22:55 Uric Acid 3.2 mg/dL (3.5-7.6) L 06/23/21 05:29 Calcium 10.0 mg/dL (8.4-10.2) 07/04/21 05:26 Phosphorus 3.10 mg/dL (2.5-4.5) 07/02/21 05:23 Magnesium 1.80 mg/dL (1.7-2.3) 07/02/21 05:23 Ferritin 102.1 ng/mL (10.0-200.0) 06/22/21 08:56 Total Bilirubin 0.30 mg/dL (0.1-1.2) 06/29/21 05:13 Direct Bilirubin < 0.2 mg/dL (0-0.2) 06/26/21 04:32 Indirect Bilirubin 0.1 mg/dL 06/26/21 04:32 AST 12 units/L (5-40) 06/29/21 05:13 ALT 9 units/L (7-56) 06/29/21 05:13 Alkaline Phosphatase 31 units/L (35-129) L 06/29/21 05:13 Lactate Dehydrogenase 220 units/L (91-180) H 06/22/21 08:56 Troponin T < 0.010 ng/mL (0.00-0.029) 06/22/21 07:58 C-Reactive Protein 5.40 mg/dL (0.00-1.30) H 06/22/21 08:56 Total Protein 3.3 g/dL (6.3-8.2) L D 06/29/21 05:13 Albumin 1.9 g/dL (3.9-5) L 06/29/21 05:13 Albumin/Globulin Ratio 1.4 % 06/29/21 05:13 Procalcitonin < 0.05 ng/mL (<0.15) 06/22/21 08:56 TSH 1.070 mlU/mL (0.270-4.200) 06/22/21 07:58 Total Cortisol 36.4 mcg/dL () 06/26/21 16:06 Arterial Blood Glucose 328 mg/dL (65-95) H 06/27/21 05:06 Arterial Blood Ionized Calcium 4.9 mg/dL (4.6-5.3) 06/27/21 05:06 Urine Color Yellow (Yellow) 06/26/21 09:48 Urine Turbidity Slightly-cloudy (Clear) 06/26/21 09:48 Urine pH 6.0 (5.0-7.0) 06/26/21 09:48 Ur Specific [place] 1.014 (1.003-1.030) 06/26/21 09:48 Urine Protein 30 mg/dl mg/dL (Negative) 06/26/21 09:48 Urine Glucose (UA) 50 mg/dL (Negative) 06/26/21 09:48 Urine Ketones 20 mg/dL (Negative) 06/26/21 09:48 Urine Blood Mod (Negative) 06/26/21 09:48 Urine Nitrite Neg (Negative) 06/26/21 09:48 Urine Bilirubin Neg (Negative) 06/26/21 09:48 Urine Urobilinogen < 2.0 mg/dL (<2.0) 06/26/21 09:48 Ur Leukocyte Esterase Mod (Negative) 06/26/21 09:48 Urine WBC (Auto) 69.0 /HPF (0.0-6.0) H 06/26/21 09:48 Urine RBC (Auto) 29.0 /HPF (0.0-6.0) 06/26/21 09:48 U Epithel Cells (Auto) 1.0 /HPF (0-13.0) 06/26/21 09:48 Urine Bacteria (Auto) 4+ /HPF (Negative) 06/26/21 09:48 Ur Transition Epith Cell 1 /HPF 06/22/21 11:47 Hyaline Casts 5 /LPF 06/22/21 11:47 Urine Mucus Few /HPF 06/26/21 09:48 Urine Yeast (Budding) 3+ /HPF 06/26/21 09:48 Urine Osmolality 571 Mosm/kg 06/22/21 11:47 Urine Sodium 25 mmol/L 06/22/21 11:47 Coronavirus (PCR) Negative (Negative) 06/22/21 Unknown [place]/IV: Voiding Method External Female Catheter Active Medications - Current Medications Current Medications: Generic Name Dose Route Start Last Admin Trade Name Freq PRN Reason Stop Dose Admin Acetaminophen 650 mg 06/22/21 22:21 07/04/21 01:38 Acetaminophen 325 Mg Tab PO 650 mg Q4H PRN Administration Pain MILD(1-3)/Fever >100.5/NAVA Lipase/Protease/Amylase 1 each 06/29/21 16:20 Lipase 10,500/Protease 25,000/Amylase 43,750 (Units) Dr Castellanos FEEDTUBE PRN PRN For Clogged Feeding Tube Apixaban 5 mg 07/02/21 12:00 07/03/21 21:42 Apixaban 5 Mg Tab PO 5 mg Q12HR JUDY Administration Protocol Clopidogrel Bisulfate 75 mg 06/23/21 10:00 07/03/21 09:57 Clopidogrel 75 Mg Tab PO 75 mg DAILY JUDY Administration Docusate Sodium 100 mg 06/25/21 22:00 07/03/21 21:42 Docusate Sodium 100 Mg/10 Ml Oral Liqd PO 100 mg BID JUDY Administration Famotidine 20 mg 06/29/21 22:00 07/03/21 21:42 Famotidine 20 Mg Tab FEEDTUBE 20 mg BID JUDY Administration Insulin Human Lispro 0 unit 06/26/21 12:00 07/04/21 06:08 Insulin Lispro 100 Unit/Ml SUB-Q 3 unit Q6HR JUDY Administration Protocol Lisinopril 10 mg 07/03/21 10:00 07/03/21 10:03 Lisinopril 10 Mg Tab PO 10 mg QDAY JUDY Administration Metoclopramide HCl 10 mg 06/22/21 22:21 Metoclopramide 10 Mg/2 Ml Inj IV Q6H PRN Nausea And Vomiting Metoprolol Tartrate 100 mg 07/03/21 10:00 07/03/21 21:47 Metoprolol Tartrate 100 Mg Tab PO 100 mg BID JUDY Administration Ondansetron HCl 4 mg 06/22/21 22:21 Ondansetron 4 Mg/2 Ml Inj IV Q8H PRN Nausea And Vomiting Pravastatin Sodium 40 mg 06/23/21 22:00 07/03/21 21:42 Pravastatin 40 Mg Tab PO 40 mg QHS JUDY Administration Simple Syrup 15 ml 06/29/21 16:20 Simple Syrup 15 Ml FEEDTUBE PRN PRN Hypoglycemia Simple Syrup 30 ml 06/29/21 16:20 Simple Syrup 15 Ml FEEDTUBE PRN PRN Hypoglycemia Sodium Bicarbonate 325 mg 06/29/21 16:20 Sodium Bicarbonate 325 Mg Tab FEEDTUBE PRN PRN For Clogged Feeding Tube Sodium Chloride 10 ml 06/23/21 10:00 07/03/21 21:43 Sodium Chloride 0.9% 10 Ml Flush Syringe IV 10 ml BID JUDY Administration Sodium Chloride 10 ml 06/22/21 22:21 Sodium Chloride 0.9% 10 Ml Flush Syringe IV PRN PRN LINE FLUSH Nutrition/Malnutrition Assess - Dietary Evaluation Nutrition/Malnutrition Findings: Nutrition Notes Start: 06/26/21 11:01 Freq: Status: Active Protocol: Document 07/01/21 18:17 VINCENZO (Rec: 07/01/21 18:27 VINCENZO [id number]) Nutrition Notes Initial or Follow up Brief Note Current Diet TF-Vital High Protein @ 50 ml/ hr (since D 06/29). Height 5 ft 5 in Weight 86.183 kg [place] Body Weight (kg) 56.81 BMI 31.6 Weight change and time frame No body weight change reported . Weight Status Obese Subjective/Other Information RD consult for routine F/U on Dietary advancement or TF resume. TF continuation, new formula without changes, thus, well tolerated. Percent of energy/protein needs met: Prescribed Vital High Protein @ 50 ml/hr provides for energy /protein needs (1,200 Kcal/105 g) during LOS. #1 Nutrition Diagnosis Inadequate oral intake Diagnosis Progress(for reassessment Continues documentation) Nutrition Intervention Nutrition Support: Continue Vital High Protein @ 50 ml/hr. Flush: 50 ml water Q 4 hr. Goal #1 Provide at least 75% of energy /protein needs through Enteral Feeding during LOS. Follow-Up By: 07/08/21 Additional Comments Continue monitoring TF tolerance and BM.
--- NOTE | 2021-07-04 09:24 | Progress Note ---
Assessment and Plan - Patient Problems (1) Acute hyponatremia Current Visit: Yes Status: Acute (2) Acute metabolic encephalopathy Current Visit: Yes Status: Acute (3) Atrial fibrillation with RVR Current Visit: Yes Status: Acute (4) Community acquired pneumonia Current Visit: Yes Status: Acute (5) Essential (primary) hypertension Current Visit: Yes Status: Acute (6) Hypokalemia Current Visit: Yes Status: Acute (7) Hypomagnesemia Current Visit: Yes Status: Acute (8) UTI (urinary tract infection) Current Visit: Yes Status: Acute Qualifiers: Urinary tract infection type: acute cystitis (9) Type 2 diabetes mellitus without complications Current Visit: Yes Status: Chronic Subjective Principal diagnosis: AF w RVR Interval history: on bipap Objective Vital Signs - 12hr 07/03/21 07/03/21 07/03/21 21:47 22:04 22:05 Temperature Pulse Rate 106 H 96 H Respiratory 28 H Rate Blood Pressure 150/57 O2 Sat by Pulse 97 97 Oximetry 07/03/21 07/04/21 07/04/21 22:27 00:00 01:38 Temperature 99.8 F H Pulse Rate 98 H Respiratory 28 H 19 Rate Blood Pressure O2 Sat by Pulse Oximetry 07/04/21 07/04/21 07/04/21 02:38 03:59 04:00 Temperature 98.1 F Pulse Rate 94 H 94 H Respiratory 18 26 H Rate Blood Pressure 126/55 O2 Sat by Pulse 97 96 Oximetry 07/04/21 07:38 Temperature 97.4 F L Pulse Rate 83 Respiratory 22 Rate Blood Pressure 117/49 O2 Sat by Pulse 100 Oximetry Constitutional: no acute distress, alert, other Eyes: non-icteric ENT: oropharynx moist Neck: supple Effort: normal Ascultation: Bilateral: diminished breath sounds Cardiovascular: regular rate and rhythm (ir/ir, no mrg) Gastrointestinal: normoactive bowel sounds, soft, non-distended Integumentary: normal Extremities: no cyanosis, no edema, pink and warm Neurologic: normal mental status, non-focal exam, pupils equal and round, CN II- XII normal Psychiatric: mood appropriate, affect normal CBC and BMP: 07/04/21 05:26 07/04/21 05:26 ABG, PT/INR, D-dimer: ABG ABG pH 7.480 (7.320-7.450) H 06/27/21 05:06 POC ABG pCO2 38.0 mmHg (32.0-48.0) 06/27/21 05:06 ABG pCO2 35.8 mm Hg 06/26/21 10:00 POC ABG pO2 93.6 mmHg (83-108) 06/27/21 05:06 ABG pO2 125.4 mm Hg (80.0-90.0) H 06/26/21 10:00 POC ABG HCO3 27.7 06/27/21 05:06 ABG O2 Saturation 98.0 (0-100) 06/27/21 05:06 PT/INR, D-dimer PT 13.0 Sec. (12.2-14.9) 07/02/21 05:30 INR 0.88 (0.87-1.13) 07/02/21 05:30 D-Dimer 390 ng/mlDDU (0-234) H 06/22/21 08:56 Abnormal lab findings: Abnormal Labs 06/22/21 06/22/21 06/22/21 07:58 07:58 07:58 WBC 13.0 H RBC Hgb MCHC 35 H Lymph % (Auto) 6.3 L Leslie % (Auto) 7.4 H Lymph # (Auto) 0.8 L Leslie # (Auto) 1.0 H Seg Neutrophils % 85.5 H Seg Neuts % (Manual) Lymphocytes % (Manual) Seg Neutrophils # 11.1 H Seg Neutrophils # Man Lymphocytes # (Manual) PT 11.8 L INR 0.78 L D-Dimer Heparin Anti-Xa Level ABG pH POC ABG pCO2 ABG pO2 ABG HCO3 ABG O2 Saturation ABG Base Excess ABG Hemoglobin ABG Oxyhemoglobin ABG Sodium ABG Chloride ABG Glucose Sodium 107 L* Potassium 2.7 L* Chloride 60.0 L Carbon Dioxide 32 H BUN Creatinine 0.5 L Glucose 177 H POC Glucose Hemoglobin A1c Lactic Acid Uric Acid Calcium Phosphorus Magnesium Alkaline Phosphatase Lactate Dehydrogenase C-Reactive Protein Total Protein Albumin Arterial Blood Glucose Urine WBC (Auto) 06/22/21 06/22/21 06/22/21 08:56 08:56 08:56 WBC RBC Hgb MCHC Lymph % (Auto) Leslie % (Auto) Lymph # (Auto) Leslie # (Auto) Seg Neutrophils % Seg Neuts % (Manual) Lymphocytes % (Manual) Seg Neutrophils # Seg Neutrophils # Man Lymphocytes # (Manual) PT INR D-Dimer 390 H Heparin Anti-Xa Level ABG pH POC ABG pCO2 ABG pO2 ABG HCO3 ABG O2 Saturation ABG Base Excess ABG Hemoglobin ABG Oxyhemoglobin ABG Sodium ABG Chloride ABG Glucose Sodium Potassium Chloride Carbon Dioxide BUN Creatinine Glucose 179 H POC Glucose Hemoglobin A1c Lactic Acid 2.10 H* Uric Acid Calcium Phosphorus Magnesium Alkaline Phosphatase Lactate Dehydrogenase 220 H C-Reactive Protein 5.40 H Total Protein Albumin Arterial Blood Glucose Urine WBC (Auto) 06/22/21 06/22/21 06/22/21 08:56 11:47 14:20 WBC RBC Hgb MCHC Lymph % (Auto) Leslie % (Auto) Lymph # (Auto) Leslie # (Auto) Seg Neutrophils % Seg Neuts % (Manual) Lymphocytes % (Manual) Seg Neutrophils # Seg Neutrophils # Man Lymphocytes # (Manual) PT INR D-Dimer Heparin Anti-Xa Level ABG pH POC ABG pCO2 ABG pO2 ABG HCO3 ABG O2 Saturation ABG Base Excess ABG Hemoglobin ABG Oxyhemoglobin ABG Sodium ABG Chloride ABG Glucose Sodium 104 L* 112 L* D Potassium 3.2 L 2.7 L* Chloride 60.0 L 65.2 L Carbon Dioxide 32 H BUN Creatinine 0.4 L 0.4 L Glucose 181 H 119 H POC Glucose Hemoglobin A1c Lactic Acid Uric Acid Calcium Phosphorus Magnesium Alkaline Phosphatase Lactate Dehydrogenase C-Reactive Protein Total Protein Albumin Arterial Blood Glucose Urine WBC (Auto) 11.0 H 06/22/21 06/23/21 06/23/21 18:19 05:29 05:29 WBC 12.4 H RBC Hgb MCHC Lymph % (Auto) 5.8 L Leslie % (Auto) Lymph # (Auto) 0.7 L Leslie # (Auto) 0.9 H Seg Neutrophils % 87.1 H Seg Neuts % (Manual) Lymphocytes % (Manual) Seg Neutrophils # 10.8 H Seg Neutrophils # Man Lymphocytes # (Manual) PT INR D-Dimer Heparin Anti-Xa Level ABG pH POC ABG pCO2 ABG pO2 ABG HCO3 ABG O2 Saturation ABG Base Excess ABG Hemoglobin ABG Oxyhemoglobin ABG Sodium ABG Chloride ABG Glucose Sodium 112 L* 112 L* Potassium 2.7 L* 2.6 L* Chloride 65.8 L 67.5 L Carbon Dioxide 31 H 33 H BUN Creatinine 0.3 L 0.4 L Glucose POC Glucose Hemoglobin A1c Lactic Acid Uric Acid 3.2 L Calcium Phosphorus Magnesium Alkaline Phosphatase Lactate Dehydrogenase C-Reactive Protein Total Protein Albumin Arterial Blood Glucose Urine WBC (Auto) 06/23/21 06/23/21 06/23/21 05:29 05:29 12:11 WBC RBC Hgb MCHC Lymph % (Auto) Leslie % (Auto) Lymph # (Auto) Leslie # (Auto) Seg Neutrophils % Seg Neuts % (Manual) Lymphocytes % (Manual) Seg Neutrophils # Seg Neutrophils # Man Lymphocytes # (Manual) PT INR D-Dimer Heparin Anti-Xa Level ABG pH POC ABG pCO2 ABG pO2 ABG HCO3 ABG O2 Saturation ABG Base Excess ABG Hemoglobin ABG Oxyhemoglobin ABG Sodium ABG Chloride ABG Glucose Sodium 113 L* Potassium 2.6 L* Chloride 69.7 L Carbon Dioxide BUN Creatinine 0.4 L Glucose 106 H POC Glucose Hemoglobin A1c 6.6 H Lactic Acid Uric Acid Calcium Phosphorus Magnesium 1.50 L Alkaline Phosphatase Lactate Dehydrogenase C-Reactive Protein Total Protein Albumin Arterial Blood Glucose Urine WBC (Auto) 06/23/21 06/24/21 06/24/21 17:43 00:43 00:45 WBC RBC Hgb MCHC Lymph % (Auto) Leslie % (Auto) Lymph # (Auto) Leslie # (Auto) Seg Neutrophils % Seg Neuts % (Manual) Lymphocytes % (Manual) Seg Neutrophils # Seg Neutrophils # Man Lymphocytes # (Manual) PT INR D-Dimer Heparin Anti-Xa Level ABG pH POC ABG pCO2 ABG pO2 ABG HCO3 ABG O2 Saturation ABG Base Excess ABG Hemoglobin ABG Oxyhemoglobin ABG Sodium ABG Chloride ABG Glucose Sodium 117 L* 119 L* Potassium Chloride 74.9 L 79.6 L Carbon Dioxide 32 H BUN Creatinine 0.3 L 0.4 L Glucose 125 H 116 H POC Glucose 117 H Hemoglobin A1c Lactic Acid Uric Acid Calcium Phosphorus Magnesium Alkaline Phosphatase Lactate Dehydrogenase C-Reactive Protein Total Protein Albumin Arterial Blood Glucose Urine WBC (Auto) 06/24/21 06/24/21 06/24/21 05:33 05:33 06:11 WBC 12.0 H RBC Hgb MCHC Lymph % (Auto) Leslie % (Auto) Lymph # (Auto) Leslie # (Auto) Seg Neutrophils % Seg Neuts % (Manual) 95.0 H Lymphocytes % (Manual) 2.0 L Seg Neutrophils # Seg Neutrophils # Man 11.4 H Lymphocytes # (Manual) 0.2 L PT INR D-Dimer Heparin Anti-Xa Level ABG pH POC ABG pCO2 ABG pO2 ABG HCO3 ABG O2 Saturation ABG Base Excess ABG Hemoglobin ABG Oxyhemoglobin ABG Sodium ABG Chloride ABG Glucose Sodium 122 L Potassium Chloride 80.2 L Carbon Dioxide 31 H BUN Creatinine 0.3 L Glucose 143 H POC Glucose 141 H Hemoglobin A1c Lactic Acid Uric Acid Calcium Phosphorus Magnesium Alkaline Phosphatase Lactate Dehydrogenase C-Reactive Protein Total Protein Albumin Arterial Blood Glucose Urine WBC (Auto) 06/24/21 06/24/21 06/24/21 16:25 18:16 23:49 WBC RBC Hgb MCHC Lymph % (Auto) Leslie % (Auto) Lymph # (Auto) Leslie # (Auto) Seg Neutrophils % Seg Neuts % (Manual) Lymphocytes % (Manual) Seg Neutrophils # Seg Neutrophils # Man Lymphocytes # (Manual) PT INR D-Dimer Heparin Anti-Xa Level ABG pH POC ABG pCO2 ABG pO2 ABG HCO3 ABG O2 Saturation ABG Base Excess ABG Hemoglobin ABG Oxyhemoglobin ABG Sodium ABG Chloride ABG Glucose Sodium 122 L 123 L Potassium Chloride 78.9 L Carbon Dioxide 32 H BUN Creatinine 0.5 L D Glucose 141 H POC Glucose 162 H Hemoglobin A1c Lactic Acid Uric Acid Calcium Phosphorus Magnesium Alkaline Phosphatase Lactate Dehydrogenase C-Reactive Protein Total Protein Albumin Arterial Blood Glucose Urine WBC (Auto) 06/25/21 06/25/21 06/25/21 00:18 03:06 06:15 WBC RBC Hgb MCHC Lymph % (Auto) Leslie % (Auto) Lymph # (Auto) Leslie # (Auto) Seg Neutrophils % Seg Neuts % (Manual) Lymphocytes % (Manual) Seg Neutrophils # Seg Neutrophils # Man Lymphocytes # (Manual) PT INR D-Dimer Heparin Anti-Xa Level ABG pH POC ABG pCO2 ABG pO2 ABG HCO3 ABG O2 Saturation ABG Base Excess ABG Hemoglobin ABG Oxyhemoglobin ABG Sodium ABG Chloride ABG Glucose Sodium 122 L Potassium Chloride Carbon Dioxide BUN Creatinine Glucose POC Glucose 151 H 149 H Hemoglobin A1c Lactic Acid Uric Acid Calcium Phosphorus Magnesium Alkaline Phosphatase Lactate Dehydrogenase C-Reactive Protein Total Protein Albumin Arterial Blood Glucose Urine WBC (Auto) 06/25/21 06/25/21 06/25/21 10:19 13:42 13:42 WBC RBC Hgb MCHC Lymph % (Auto) Leslie % (Auto) Lymph # (Auto) Leslie # (Auto) Seg Neutrophils % Seg Neuts % (Manual) Lymphocytes % (Manual) Seg Neutrophils # Seg Neutrophils # Man Lymphocytes # (Manual) PT INR 0.85 L D-Dimer Heparin Anti-Xa Level ABG pH POC ABG pCO2 ABG pO2 ABG HCO3 ABG O2 Saturation ABG Base Excess ABG Hemoglobin ABG Oxyhemoglobin ABG Sodium ABG Chloride ABG Glucose Sodium 123 L Potassium Chloride 78.5 L Carbon Dioxide 32 H BUN 19 H Creatinine Glucose 193 H POC Glucose 152 H Hemoglobin A1c Lactic Acid Uric Acid Calcium Phosphorus Magnesium Alkaline Phosphatase Lactate Dehydrogenase C-Reactive Protein Total Protein Albumin Arterial Blood Glucose Urine WBC (Auto) 06/25/21 06/25/21 06/25/21 15:13 15:21 19:49 WBC RBC Hgb MCHC Lymph % (Auto) Leslie % (Auto) Lymph # (Auto) Leslie # (Auto) Seg Neutrophils % Seg Neuts % (Manual) Lymphocytes % (Manual) Seg Neutrophils # Seg Neutrophils # Man Lymphocytes # (Manual) PT INR D-Dimer Heparin Anti-Xa Level < 0.10 L ABG pH POC ABG pCO2 ABG pO2 ABG HCO3 ABG O2 Saturation ABG Base Excess ABG Hemoglobin ABG Oxyhemoglobin ABG Sodium ABG Chloride ABG Glucose Sodium Potassium Chloride Carbon Dioxide BUN Creatinine Glucose POC Glucose 221 H 194 H Hemoglobin A1c Lactic Acid Uric Acid Calcium Phosphorus Magnesium Alkaline Phosphatase Lactate Dehydrogenase C-Reactive Protein Total Protein Albumin Arterial Blood Glucose Urine WBC (Auto) 06/25/21 06/25/21 06/25/21 21:21 22:55 22:55 WBC 14.8 H RBC Hgb MCHC Lymph % (Auto) Leslie % (Auto) Lymph # (Auto) Leslie # (Auto) Seg Neutrophils % Seg Neuts % (Manual) 91.0 H Lymphocytes % (Manual) 6.0 L Seg Neutrophils # Seg Neutrophils # Man 13.5 H Lymphocytes # (Manual) 0.9 L PT INR D-Dimer Heparin Anti-Xa Level ABG pH 7.086 L POC ABG pCO2 104.9 H ABG pO2 ABG HCO3 ABG O2 Saturation ABG Base Excess ABG Hemoglobin ABG Oxyhemoglobin 92.4 L ABG Sodium 123.4 L ABG Chloride 81.0 L ABG Glucose 225 H Sodium 124 L Potassium Chloride 82.9 L Carbon Dioxide BUN 22 H Creatinine Glucose 226 H POC Glucose Hemoglobin A1c Lactic Acid Uric Acid Calcium 8.2 L Phosphorus 4.70 H Magnesium Alkaline Phosphatase Lactate Dehydrogenase C-Reactive Protein Total Protein Albumin Arterial Blood Glucose 225 H Urine WBC (Auto) 06/26/21 06/26/21 06/26/21 00:35 02:58 04:32 WBC RBC Hgb MCHC Lymph % (Auto) Leslie % (Auto) Lymph # (Auto) Leslie # (Auto) Seg Neutrophils % Seg Neuts % (Manual) Lymphocytes % (Manual) Seg Neutrophils # Seg Neutrophils # Man Lymphocytes # (Manual) PT INR D-Dimer Heparin Anti-Xa Level ABG pH POC ABG pCO2 ABG pO2 439.6 H ABG HCO3 30.0 H ABG O2 Saturation 99.6 H ABG Base Excess 3.3 H ABG Hemoglobin ABG Oxyhemoglobin ABG Sodium ABG Chloride ABG Glucose Sodium 123 L Potassium Chloride 79.2 L Carbon Dioxide BUN 26 H Creatinine Glucose 202 H POC Glucose 227 H Hemoglobin A1c Lactic Acid Uric Acid Calcium Phosphorus Magnesium Alkaline Phosphatase Lactate Dehydrogenase C-Reactive Protein Total Protein 5.9 L Albumin 2.8 L Arterial Blood Glucose Urine WBC (Auto) 06/26/21 06/26/21 06/26/21 05:53 09:14 09:48 WBC RBC Hgb MCHC Lymph % (Auto) Leslie % (Auto) Lymph # (Auto) Leslie # (Auto) Seg Neutrophils % Seg Neuts % (Manual) Lymphocytes % (Manual) Seg Neutrophils # Seg Neutrophils # Man Lymphocytes # (Manual) PT INR D-Dimer Heparin Anti-Xa Level ABG pH POC ABG pCO2 ABG pO2 ABG HCO3 ABG O2 Saturation ABG Base Excess ABG Hemoglobin ABG Oxyhemoglobin ABG Sodium ABG Chloride ABG Glucose Sodium Potassium Chloride Carbon Dioxide BUN Creatinine Glucose POC Glucose 187 H 194 H Hemoglobin A1c Lactic Acid Uric Acid Calcium Phosphorus Magnesium Alkaline Phosphatase Lactate Dehydrogenase C-Reactive Protein Total Protein Albumin Arterial Blood Glucose Urine WBC (Auto) 69.0 H 06/26/21 06/26/21 06/26/21 10:00 16:06 22:34 WBC RBC Hgb MCHC Lymph % (Auto) Leslie % (Auto) Lymph # (Auto) Leslie # (Auto) Seg Neutrophils % Seg Neuts % (Manual) Lymphocytes % (Manual) Seg Neutrophils # Seg Neutrophils # Man Lymphocytes # (Manual) PT INR D-Dimer Heparin Anti-Xa Level ABG pH 7.467 H POC ABG pCO2 ABG pO2 125.4 H ABG HCO3 ABG O2 Saturation ABG Base Excess ABG Hemoglobin ABG Oxyhemoglobin ABG Sodium ABG Chloride ABG Glucose Sodium 128 L Potassium Chloride 88.6 L Carbon Dioxide BUN 32 H Creatinine Glucose 161 H POC Glucose 231 H Hemoglobin A1c Lactic Acid Uric Acid Calcium Phosphorus Magnesium Alkaline Phosphatase Lactate Dehydrogenase C-Reactive Protein Total Protein Albumin Arterial Blood Glucose Urine WBC (Auto) 06/26/21 06/27/21 06/27/21 23:32 05:06 06:00 WBC 12.0 H RBC Hgb MCHC Lymph % (Auto) Leslie % (Auto) Lymph # (Auto) Leslie # (Auto) Seg Neutrophils % Seg Neuts % (Manual) Lymphocytes % (Manual) Seg Neutrophils # Seg Neutrophils # Man Lymphocytes # (Manual) PT INR D-Dimer Heparin Anti-Xa Level ABG pH 7.480 H POC ABG pCO2 ABG pO2 ABG HCO3 ABG O2 Saturation ABG Base Excess ABG Hemoglobin 11.9 L ABG Oxyhemoglobin ABG Sodium 123.5 L ABG Chloride 91.0 L ABG Glucose 328 H Sodium 126 L Potassium Chloride 89.2 L Carbon Dioxide BUN 34 H Creatinine Glucose 257 H POC Glucose Hemoglobin A1c Lactic Acid Uric Acid Calcium Phosphorus Magnesium Alkaline Phosphatase Lactate Dehydrogenase C-Reactive Protein Total Protein Albumin Arterial Blood Glucose 328 H Urine WBC (Auto) 06/27/21 06/27/21 06/27/21 06:00 11:41 17:06 WBC RBC Hgb MCHC Lymph % (Auto) Leslie % (Auto) Lymph # (Auto) Leslie # (Auto) Seg Neutrophils % Seg Neuts % (Manual) Lymphocytes % (Manual) Seg Neutrophils # Seg Neutrophils # Man Lymphocytes # (Manual) PT INR D-Dimer Heparin Anti-Xa Level ABG pH POC ABG pCO2 ABG pO2 ABG HCO3 ABG O2 Saturation ABG Base Excess ABG Hemoglobin ABG Oxyhemoglobin ABG Sodium ABG Chloride ABG Glucose Sodium 128 L Potassium Chloride 91.4 L Carbon Dioxide BUN 36 H Creatinine Glucose 346 H POC Glucose 259 H 301 H Hemoglobin A1c Lactic Acid Uric Acid Calcium Phosphorus Magnesium Alkaline Phosphatase Lactate Dehydrogenase C-Reactive Protein Total Protein Albumin Arterial Blood Glucose Urine WBC (Auto) 06/27/21 06/28/21 06/28/21 23:36 03:00 03:00 WBC 14.9 H RBC 3.46 L Hgb MCHC Lymph % (Auto) 2.8 L Leslie % (Auto) 7.5 H Lymph # (Auto) 0.4 L Leslie # (Auto) 1.1 H Seg Neutrophils % 89.6 H Seg Neuts % (Manual) Lymphocytes % (Manual) Seg Neutrophils # 13.4 H Seg Neutrophils # Man Lymphocytes # (Manual) PT INR D-Dimer Heparin Anti-Xa Level ABG pH POC ABG pCO2 ABG pO2 ABG HCO3 ABG O2 Saturation ABG Base Excess ABG Hemoglobin ABG Oxyhemoglobin ABG Sodium ABG Chloride ABG Glucose Sodium 134 L Potassium Chloride 91.1 L Carbon Dioxide BUN 35 H Creatinine Glucose 235 H POC Glucose 215 H Hemoglobin A1c Lactic Acid Uric Acid Calcium Phosphorus 1.10 L Magnesium Alkaline Phosphatase Lactate Dehydrogenase C-Reactive Protein Total Protein Albumin Arterial Blood Glucose Urine WBC (Auto) 06/28/21 06/28/21 06/28/21 03:00 05:13 16:53 WBC RBC Hgb MCHC Lymph % (Auto) Leslie % (Auto) Lymph # (Auto) Leslie # (Auto) Seg Neutrophils % Seg Neuts % (Manual) Lymphocytes % (Manual) Seg Neutrophils # Seg Neutrophils # Man Lymphocytes # (Manual) PT INR D-Dimer Heparin Anti-Xa Level 0.27 L ABG pH POC ABG pCO2 ABG pO2 ABG HCO3 ABG O2 Saturation ABG Base Excess ABG Hemoglobin ABG Oxyhemoglobin ABG Sodium ABG Chloride ABG Glucose Sodium Potassium Chloride Carbon Dioxide BUN Creatinine Glucose POC Glucose 241 H 213 H Hemoglobin A1c Lactic Acid Uric Acid Calcium Phosphorus Magnesium Alkaline Phosphatase Lactate Dehydrogenase C-Reactive Protein Total Protein Albumin Arterial Blood Glucose Urine WBC (Auto) 06/28/21 06/29/21 06/29/21 23:32 05:13 05:13 WBC RBC Hgb MCHC Lymph % (Auto) Leslie % (Auto) Lymph # (Auto) Leslie # (Auto) Seg Neutrophils % Seg Neuts % (Manual) Lymphocytes % (Manual) Seg Neutrophils # Seg Neutrophils # Man Lymphocytes # (Manual) PT INR D-Dimer Heparin Anti-Xa Level 0.13 L ABG pH POC ABG pCO2 ABG pO2 ABG HCO3 ABG O2 Saturation ABG Base Excess ABG Hemoglobin ABG Oxyhemoglobin ABG Sodium ABG Chloride ABG Glucose Sodium 133 L Potassium Chloride Carbon Dioxide BUN 34 H Creatinine 0.5 L Glucose 186 H POC Glucose 236 H Hemoglobin A1c Lactic Acid Uric Acid Calcium Phosphorus 2.20 L D Magnesium Alkaline Phosphatase 31 L Lactate Dehydrogenase C-Reactive Protein Total Protein 3.3 L D Albumin 1.9 L Arterial Blood Glucose Urine WBC (Auto) 06/29/21 06/29/21 06/29/21 06:00 06:00 06:00 WBC 12.7 H RBC 3.36 L Hgb 10.0 L MCHC Lymph % (Auto) 9.5 L Leslie % (Auto) 8.6 H Lymph # (Auto) Leslie # (Auto) 1.1 H Seg Neutrophils % 80.4 H Seg Neuts % (Manual) Lymphocytes % (Manual) Seg Neutrophils # 10.2 H Seg Neutrophils # Man Lymphocytes # (Manual) PT INR D-Dimer Heparin Anti-Xa Level 0.22 L ABG pH POC ABG pCO2 ABG pO2 ABG HCO3 ABG O2 Saturation ABG Base Excess ABG Hemoglobin ABG Oxyhemoglobin ABG Sodium ABG Chloride ABG Glucose Sodium 134 L Potassium Chloride 97.8 L Carbon Dioxide BUN 33 H Creatinine Glucose 189 H POC Glucose Hemoglobin A1c Lactic Acid Uric Acid Calcium Phosphorus Magnesium Alkaline Phosphatase Lactate Dehydrogenase C-Reactive Protein Total Protein Albumin Arterial Blood Glucose Urine WBC (Auto) 06/29/21 06/29/21 06/30/21 12:02 17:20 04:20 WBC 11.9 H RBC 3.37 L Hgb MCHC Lymph % (Auto) 8.6 L Leslie % (Auto) 8.3 H Lymph # (Auto) 1.0 L Leslie # (Auto) 1.0 H Seg Neutrophils % 82.6 H Seg Neuts % (Manual) Lymphocytes % (Manual) Seg Neutrophils # 9.8 H Seg Neutrophils # Man Lymphocytes # (Manual) PT INR D-Dimer Heparin Anti-Xa Level ABG pH POC ABG pCO2 ABG pO2 ABG HCO3 ABG O2 Saturation ABG Base Excess ABG Hemoglobin ABG Oxyhemoglobin ABG Sodium ABG Chloride ABG Glucose Sodium Potassium Chloride Carbon Dioxide BUN Creatinine Glucose POC Glucose 249 H 172 H Hemoglobin A1c Lactic Acid Uric Acid Calcium Phosphorus Magnesium Alkaline Phosphatase Lactate Dehydrogenase C-Reactive Protein Total Protein Albumin Arterial Blood Glucose Urine WBC (Auto) 06/30/21 06/30/21 07/01/21 04:20 04:20 04:00 WBC RBC Hgb MCHC Lymph % (Auto) Leslie % (Auto) Lymph # (Auto) Leslie # (Auto) Seg Neutrophils % Seg Neuts % (Manual) Lymphocytes % (Manual) Seg Neutrophils # Seg Neutrophils # Man Lymphocytes # (Manual) PT INR D-Dimer Heparin Anti-Xa Level 0.29 L 0.26 L ABG pH POC ABG pCO2 ABG pO2 ABG HCO3 ABG O2 Saturation ABG Base Excess ABG Hemoglobin ABG Oxyhemoglobin ABG Sodium ABG Chloride ABG Glucose Sodium Potassium Chloride Carbon Dioxide BUN 30 H Creatinine 0.5 L Glucose POC Glucose Hemoglobin A1c Lactic Acid Uric Acid Calcium Phosphorus Magnesium Alkaline Phosphatase Lactate Dehydrogenase C-Reactive Protein Total Protein Albumin Arterial Blood Glucose Urine WBC (Auto) 07/01/21 07/01/21 07/01/21 04:00 06:00 08:33 WBC RBC Hgb MCHC Lymph % (Auto) Leslie % (Auto) Lymph # (Auto) Leslie # (Auto) Seg Neutrophils % Seg Neuts % (Manual) Lymphocytes % (Manual) Seg Neutrophils # Seg Neutrophils # Man Lymphocytes # (Manual) PT INR D-Dimer Heparin Anti-Xa Level ABG pH POC ABG pCO2 ABG pO2 ABG HCO3 ABG O2 Saturation ABG Base Excess ABG Hemoglobin ABG Oxyhemoglobin ABG Sodium ABG Chloride ABG Glucose Sodium Potassium Chloride Carbon Dioxide BUN 25 H Creatinine 0.4 L Glucose POC Glucose 69 L 131 H Hemoglobin A1c Lactic Acid Uric Acid Calcium Phosphorus Magnesium Alkaline Phosphatase Lactate Dehydrogenase C-Reactive Protein Total Protein Albumin Arterial Blood Glucose Urine WBC (Auto) 07/01/21 07/01/21 07/02/21 16:59 Unknown 05:23 WBC 12.2 H RBC 3.57 L Hgb MCHC Lymph % (Auto) Leslie % (Auto) Lymph # (Auto) Leslie # (Auto) Seg Neutrophils % Seg Neuts % (Manual) Lymphocytes % (Manual) Seg Neutrophils # Seg Neutrophils # Man Lymphocytes # (Manual) PT INR D-Dimer Heparin Anti-Xa Level 0.29 L ABG pH POC ABG pCO2 ABG pO2 ABG HCO3 ABG O2 Saturation ABG Base Excess ABG Hemoglobin ABG Oxyhemoglobin ABG Sodium ABG Chloride ABG Glucose Sodium Potassium Chloride Carbon Dioxide BUN Creatinine Glucose POC Glucose 109 H Hemoglobin A1c Lactic Acid Uric Acid Calcium Phosphorus Magnesium Alkaline Phosphatase Lactate Dehydrogenase C-Reactive Protein Total Protein Albumin Arterial Blood Glucose Urine WBC (Auto) 0107/02/21 07/02/21 05:23 05:23 05:29 WBC RBC 3.35 L Hgb MCHC Lymph % (Auto) Leslie % (Auto) Lymph # (Auto) Leslie # (Auto) Seg Neutrophils % Seg Neuts % (Manual) Lymphocytes % (Manual) Seg Neutrophils # Seg Neutrophils # Man Lymphocytes # (Manual) PT INR D-Dimer Heparin Anti-Xa Level ABG pH POC ABG pCO2 ABG pO2 ABG HCO3 ABG O2 Saturation ABG Base Excess ABG Hemoglobin ABG Oxyhemoglobin ABG Sodium ABG Chloride ABG Glucose Sodium Potassium Chloride Carbon Dioxide 33 H BUN 21 H Creatinine 0.5 L Glucose 122 H POC Glucose 118 H Hemoglobin A1c Lactic Acid Uric Acid Calcium Phosphorus Magnesium Alkaline Phosphatase Lactate Dehydrogenase C-Reactive Protein Total Protein Albumin Arterial Blood Glucose Urine WBC (Auto) 07/02/21 07/02/21 07/02/21 11:38 18:08 23:27 WBC RBC Hgb MCHC Lymph % (Auto) Leslie % (Auto) Lymph # (Auto) Leslie # (Auto) Seg Neutrophils % Seg Neuts % (Manual) Lymphocytes % (Manual) Seg Neutrophils # Seg Neutrophils # Man Lymphocytes # (Manual) PT INR D-Dimer Heparin Anti-Xa Level ABG pH POC ABG pCO2 ABG pO2 ABG HCO3 ABG O2 Saturation ABG Base Excess ABG Hemoglobin ABG Oxyhemoglobin ABG Sodium ABG Chloride ABG Glucose Sodium Potassium Chloride Carbon Dioxide BUN Creatinine Glucose POC Glucose 177 H 153 H 143 H Hemoglobin A1c Lactic Acid Uric Acid Calcium Phosphorus Magnesium Alkaline Phosphatase Lactate Dehydrogenase C-Reactive Protein Total Protein Albumin Arterial Blood Glucose Urine WBC (Auto) 07/03/21 07/03/21 07/03/21 04:09 07:57 10:59 WBC RBC Hgb MCHC Lymph % (Auto) Leslie % (Auto) Lymph # (Auto) Leslie # (Auto) Seg Neutrophils % Seg Neuts % (Manual) Lymphocytes % (Manual) Seg Neutrophils # Seg Neutrophils # Man Lymphocytes # (Manual) PT INR D-Dimer Heparin Anti-Xa Level 1.90 H ABG pH POC ABG pCO2 ABG pO2 ABG HCO3 ABG O2 Saturation ABG Base Excess ABG Hemoglobin ABG Oxyhemoglobin ABG Sodium ABG Chloride ABG Glucose Sodium Potassium Chloride Carbon Dioxide BUN Creatinine Glucose POC Glucose 158 H 175 H Hemoglobin A1c Lactic Acid Uric Acid Calcium Phosphorus Magnesium Alkaline Phosphatase Lactate Dehydrogenase C-Reactive Protein Total Protein Albumin Arterial Blood Glucose Urine WBC (Auto) 07/03/21 07/03/21 07/04/21 15:40 23:45 04:52 WBC RBC Hgb MCHC Lymph % (Auto) Leslie % (Auto) Lymph # (Auto) Leslie # (Auto) Seg Neutrophils % Seg Neuts % (Manual) Lymphocytes % (Manual) Seg Neutrophils # Seg Neutrophils # Man Lymphocytes # (Manual) PT INR D-Dimer Heparin Anti-Xa Level ABG pH POC ABG pCO2 ABG pO2 ABG HCO3 ABG O2 Saturation ABG Base Excess ABG Hemoglobin ABG Oxyhemoglobin ABG Sodium ABG Chloride ABG Glucose Sodium Potassium Chloride Carbon Dioxide BUN Creatinine Glucose POC Glucose 209 H 168 H 155 H Hemoglobin A1c Lactic Acid Uric Acid Calcium Phosphorus Magnesium Alkaline Phosphatase Lactate Dehydrogenase C-Reactive Protein Total Protein Albumin Arterial Blood Glucose Urine WBC (Auto) 07/04/21 07/04/21 05:26 05:26 WBC RBC 3.32 L Hgb 9.9 L MCHC Lymph % (Auto) Leslie % (Auto) Lymph # (Auto) Leslie # (Auto) Seg Neutrophils % Seg Neuts % (Manual) Lymphocytes % (Manual) Seg Neutrophils # Seg Neutrophils # Man Lymphocytes # (Manual) PT INR D-Dimer Heparin Anti-Xa Level ABG pH POC ABG pCO2 ABG pO2 ABG HCO3 ABG O2 Saturation ABG Base Excess ABG Hemoglobin ABG Oxyhemoglobin ABG Sodium ABG Chloride ABG Glucose Sodium Potassium Chloride Carbon Dioxide 36 H BUN 35 H Creatinine 0.5 L Glucose 149 H POC Glucose Hemoglobin A1c Lactic Acid Uric Acid Calcium Phosphorus Magnesium Alkaline Phosphatase Lactate Dehydrogenase C-Reactive Protein Total Protein Albumin Arterial Blood Glucose Urine WBC (Auto) Chest x-ray: report reviewed Allied health notes reviewed: nursing
[2021-07-04] MEDS: METOPROLOL TARTRATE 100 MG TAB PO SCH ×2 (10:17→21:32)
[2021-07-04] MEDS: LISINOPRIL 10 MG TAB PO SCH (10:17)
[2021-07-04] MEDS: FAMOTIDINE 20 MG TAB FEEDTUBE SCH ×2 (10:17→21:33)
[2021-07-04] MEDS: APIXABAN 5 MG TAB PO SCH ×2 (10:17→21:32)
[2021-07-04] MEDS: CLOPIDOGREL 75 MG TAB PO SCH (10:17)
[2021-07-04] MEDS: DOCUSATE SODIUM 100 MG/10 ML ORAL LIQD PO SCH ×2 (10:17→21:32)
--- NOTE | 2021-07-04 11:38 | Progress Note ---
Assessment and Plan Patient is 65-year-old female with a past medical history of hypertension, diabetes, and tobacco use who is brought to the ED for complaint of weakness and altered mental status that lasted 4 days prior to admission Acute Encephalopathy Symptomatic Hyponatremia-nephrology following Acute Respiratory Failure-on Bipap PNA UTI Hypotension AF with RVR (new onset) Hypokalemia (resolved) Hypomagnesemia (resolved) H/o HTN DM2 H/o Tobacco Abuse Echo reviewed - EF 60-65%, no significant valvular abnormalities. Plan: Patient is converting between A. fib and sinus rhythm Continue Eliquis for anticoagulation cont metoprolol 100 mg p.o. BID cont lisinopril 10 mg p.o. daily discuss with primary low dose lasix to see if repisatory status will improve Subjective Date of service: 07/04/21 Principal diagnosis: AF w RVR Interval history: pt on bipap Objective Vital Signs Temp Pulse Pulse Resp BP Pulse Ox 07/04/21 11:10 98 07/04/21 07:38 97.4 F L 83 22 117/49 100 07/04/21 04:00 94 H 96 07/04/21 03:59 98.1 F 94 H 26 H 126/55 97 07/04/21 02:38 18 07/04/21 01:38 19 07/04/21 00:00 98 H 07/03/21 22:27 99.8 F H 28 H 07/03/21 22:05 96 H 28 H 97 07/03/21 22:04 97 07/03/21 21:47 106 H 150/57 07/03/21 19:45 98.2 F 64 21 113/39 96 07/03/21 16:49 101 H 22 98 07/03/21 15:41 128/48 07/03/21 15:15 98 07/03/21 15:00 53 L 27 H 96 - Physical Examination General: No Apparent Distress HEENT: Positive: Normocephaly, Mucus Membranes Dry Neck: Positive: neck supple, trachea midline Cardiac: Positive: Reg Rate and Rhythm Lungs: Positive: clear to auscultation Neuro: Positive: Grossly Intact Abdomen: Positive: Soft Skin: Negative: Rash Musculoskeletal: No Fluid Collection Extremities: Present: lower extr. pulses, warm. Absent: edema - Labs and Meds CBC 07/04/21 Range/Units 05:26 WBC 10.6 (4.5-11.0) K/mm3 RBC 3.32 L (3.65-5.03) M/mm3 Hgb 9.9 L (10.1-14.3) gm/dl Hct 30.8 (30.3-42.9) % Plt Count 304 (140-440) K/mm3 Comprehensive Metabolic Panel 07/04/21 Range/Units 05:26 Sodium 140 (137-145) mmol/L Potassium 3.8 (3.6-5.0) mmol/L Chloride 98.8 (98-107) mmol/L Carbon Dioxide 36 H (22-30) mmol/L BUN 35 H (7-17) mg/dL Creatinine 0.5 L (0.6-1.2) mg/dL Glucose 149 H (65-100) mg/dL Calcium 10.0 (8.4-10.2) mg/dL - Imaging and Cardiology EKG: report reviewed, image reviewed Echo: report reviewed - Telemetry EKG Rhythm: Sinus Rhythm - EKG Sinus rhythms and dysrhythmias: sinus rhythm Ventricular dysrhythmias: ventricular premature com Myocardial infarction: septal [place] (old age or ind, anterior [place] (old age or i - Allied health notes Allied health notes reviewed: nursing
[2021-07-04] MEDS ORDERED: FUROSEMIDE 20 MG/2 ML INJ IV ONE (13:00)
[2021-07-04] MEDS: PRAVASTATIN 40 MG TAB PO SCH (21:32)
[2021-07-05] MEDS: INSULIN LISPRO 100 UNIT/ML SUB-Q SCH ×4 (00:45→17:26)
--- NOTE | 2021-07-05 08:04 | Progress Note ---
Assessment and Plan Assessment and plan: #Acute hypercapnic respiratory failure -Currently on nasal cannula at 5 L/min will wean as tolerated -if unable to wean, will need home O2 walk test prior to d/c -keep SpO2 >92% -BiPAP at night -likely 2/2 to CAP #Atrial fibrillation -continue metoprolol and eliquis -Cardiology following, assistance appreciated #Hypertension -controlled -continue lisinopril 10mg qday #Type 2 diabetes -controlled, glucose 155-200 -continue SSI Resolved problems #Severe hyponatremia- resolved #Acute metabolic encephalopathy- likely 2/2 hyponatremia #Urinary tract infection #Community-acquired pneumonia-s/p abx Disposition Plan: Continue medical management History Interval history: No acute events overnight. Patient resting on nasal cannula. Easy to arouse. She has no complaints at this time. Hospitalist Physical - Physical exam Narrative exam: GENERAL: Well-developed well-nourished. In no acute distress. HEENT: Nasal cannula at 5 L/min CHEST/LUNGS: Coarse breath sounds bilaterally. HEART/CARDIOVASCULAR: Irregularly irregular rhythm. No murmur, rubs or gallops appreciated. ABDOMEN: +BS. NT/ND. NEURO: No focal motor deficit. Follows all commands. PSYCH: Cooperative. - Constitutional Vitals: Temp Pulse Resp BP Pulse Ox 97.6 F 99 H 20 143/64 96 07/04/21 23:01 07/05/21 05:18 07/05/21 05:18 07/05/21 05:18 07/05/21 05:18 General appearance: Present: no acute distress, obese HEART Score - HEART Score Troponin: Troponin T < 0.010 ng/mL (0.00-0.029) 06/22/21 07:58 Results - Labs CBC & Chem 7: 07/04/21 05:26 07/05/21 07:55 Labs: Laboratory Last Values WBC 10.6 K/mm3 (4.5-11.0) 07/04/21 05:26 RBC 3.32 M/mm3 (3.65-5.03) L 07/04/21 05:26 Hgb 9.9 gm/dl (10.1-14.3) L 07/04/21 05:26 Hct 30.8 % (30.3-42.9) 07/04/21 05:26 MCV 93 fl (79-97) 07/04/21 05:26 MCH 30 pg (28-32) 07/04/21 05:26 MCHC 32 % (30-34) 07/04/21 05:26 RDW 13.6 % (13.2-15.2) 07/04/21 05:26 Plt Count 304 K/mm3 (140-440) 07/04/21 05:26 Lymph % (Auto) 8.6 % (13.4-35.0) L 06/30/21 04:20 Merrick % (Auto) 8.3 % (0.0-7.3) H 06/30/21 04:20 Eos % (Auto) 0.5 % (0.0-4.3) 06/30/21 04:20 Baso % (Auto) 0.0 % (0.0-1.8) 06/30/21 04:20 Lymph # (Auto) 1.0 K/mm3 (1.2-5.4) L 06/30/21 04:20 [place]rick # (Auto) 1.0 K/mm3 (0.0-0.8) H 06/30/21 04:20 Eos # (Auto) 0.1 K/mm3 (0.0-0.4) 06/30/21 04:20 Baso # (Auto) 0.0 K/mm3 (0.0-0.1) 06/30/21 04:20 Add Manual Diff Complete 06/25/21 22:55 Total Counted 100 06/25/21 22:55 Seg Neutrophils % 82.6 % (40.0-70.0) H 06/30/21 04:20 Seg Neuts % (Manual) 91.0 % (40.0-70.0) H 06/25/21 22:55 Lymphocytes % (Manual) 6.0 % (13.4-35.0) L 06/25/21 22:55 Monocytes % (Manual) 3.0 % (0.0-7.3) 06/25/21 22:55 Metamyelocytes % 1.0 % 06/24/21 05:33 Nucleated RBC % Not Reportable 06/25/21 22:55 Seg Neutrophils # 9.8 K/mm3 (1.8-7.7) H 06/30/21 04:20 Seg Neutrophils # Man 13.5 K/mm3 (1.8-7.7) H 06/25/21 22:55 Band Neutrophils # 0.0 K/mm3 06/25/21 22:55 Lymphocytes # (Manual) 0.9 K/mm3 (1.2-5.4) L 06/25/21 22:55 Abs React Lymphs (Man) 0.0 K/mm3 06/25/21 22:55 Monocytes # (Manual) 0.4 K/mm3 (0.0-0.8) 06/25/21 22:55 Eosinophils # (Manual) 0.0 K/mm3 (0.0-0.4) 06/25/21 22:55 Basophils # (Manual) 0.0 K/mm3 (0.0-0.1) 06/25/21 22:55 Metamyelocytes # 0.0 K/mm3 06/25/21 22:55 Myelocytes # 0.0 K/mm3 06/25/21 22:55 Promyelocytes # 0.0 K/mm3 06/25/21 22:55 Blast Cells # 0.0 K/mm3 06/25/21 22:55 WBC Morphology Not Reportable 06/25/21 22:55 Hypersegmented Neuts Not Reportable 06/25/21 22:55 Hyposegmented Neuts Not Reportable 06/25/21 22:55 Hypogranular Neuts Not Reportable 06/25/21 22:55 Smudge Cells Not Reportable 06/25/21 22:55 Toxic Granulation Not Reportable 06/25/21 22:55 Toxic Vacuolation Not Reportable 06/25/21 22:55 Dohle Bodies Not Reportable 06/25/21 22:55 Pelger-Huet Anomaly Not Reportable 06/25/21 22:55 Otf Rods Not Reportable 06/25/21 22:55 Platelet Estimate Consistent w auto 06/25/21 22:55 Clumped Platelets Not Reportable 06/25/21 22:55 Plt Clumps, EDTA Not Reportable 06/25/21 22:55 Large Platelets Not Reportable 06/25/21 22:55 Giant Platelets Not Reportable 06/25/21 22:55 Platelet Satelliting Not Reportable 06/25/21 22:55 Plt Morphology Comment Not Reportable 06/25/21 22:55 RBC Morphology Normal 06/25/21 22:55 Dimorphic RBCs Not Reportable 06/25/21 22:55 Polychromasia Not Reportable 06/25/21 22:55 Hypochromasia Not Reportable 06/25/21 22:55 Poikilocytosis Not Reportable 06/25/21 22:55 Anisocytosis Not Reportable 06/25/21 22:55 Microcytosis Not Reportable 06/25/21 22:55 Macrocytosis Not Reportable 06/25/21 22:55 Spherocytes Not Reportable 06/25/21 22:55 Pappenheimer Bodies Not Reportable 06/25/21 22:55 Sickle Cells Not Reportable 06/25/21 22:55 Target Cells Not Reportable 06/25/21 22:55 Tear Drop Cells Not Reportable 06/25/21 22:55 Ovalocytes Not Reportable 06/25/21 22:55 Helmet Cells Not Reportable 06/25/21 22:55 Bridges-White Signal Bodies Not Reportable 06/25/21 22:55 [place] Rings Not Reportable 06/25/21 22:55 Dearing Cells Not Reportable 06/25/21 22:55 Bite Cells Not Reportable 06/25/21 22:55 Crenated Cell Not Reportable 06/25/21 22:55 Elliptocytes Not Reportable 06/25/21 22:55 Acanthocytes (Spur) Not Reportable 06/25/21 22:55 Rouleaux Not Reportable 06/25/21 22:55 Hemoglobin C Crystals Not Reportable 06/25/21 22:55 Schistocytes Not Reportable 06/25/21 22:55 Malaria parasites Not Reportable 06/25/21 22:55 Steve Bodies Not Reportable 06/25/21 22:55 Hem Pathologist Commnt No 06/25/21 22:55 PT 13.0 Sec. (12.2-14.9) 07/02/21 05:30 INR 0.88 (0.87-1.13) 07/02/21 05:30 APTT TNR 07/02/21 05:30 Thrombin Time 15.9 Sec. (15.1-19.6) 06/22/21 07:58 D-Dimer 390 ng/mlDDU (0-234) H 06/22/21 08:56 Heparin Anti-Xa Level 1.90 U.I./ml (0.3-0.7) H 07/03/21 04:09 ABG pH 7.480 (7.320-7.450) H 06/27/21 05:06 POC ABG pCO2 38.0 mmHg (32.0-48.0) 06/27/21 05:06 ABG pCO2 35.8 mm Hg 06/26/21 10:00 POC ABG pO2 93.6 mmHg (83-108) 06/27/21 05:06 ABG pO2 125.4 mm Hg (80.0-90.0) H 06/26/21 10:00 POC ABG HCO3 27.7 06/27/21 05:06 ABG HCO3 25.3 mmol/L (20.0-26.0) 06/26/21 10:00 ABG O2 Saturation 98.0 (0-100) 06/27/21 05:06 ABG O2 Content 17.1 (0.0-44) 06/26/21 10:00 POC ABG Base Excess 4.0 06/27/21 05:06 ABG Base Excess 1.9 mmol/L (-2.0-3.0) 06/26/21 10:00 ABG Hemoglobin 11.9 (12.0-17.5) L 06/27/21 05:06 ABG Oxyhemoglobin 96.8 (94-98) 06/27/21 05:06 ABG Carboxyhemoglobin 1.1 % (0.0-5.0) 06/26/21 10:00 ABG Methemoglobin 0.3 (0.0-1.5) 06/27/21 05:06 ABG Sodium 123.5 mmol/L (136.0-145.0) L 06/27/21 05:06 ABG Potassium 3.7 mmol/L (3.40-4.50) 06/27/21 05:06 ABG Chloride 91.0 mmol/L (98-107) L 06/27/21 05:06 ABG Glucose 328 mg/dL (65-95) H 06/27/21 05:06 Oxyhemoglobin 97.0 % (95.0-99.0) 06/26/21 10:00 Carboxyhemoglobin 0.9 (0.5-1.5) 06/27/21 05:06 FiO2 50 % 06/26/21 10:00 FiO2 % 40.0 06/27/21 05:06 Sodium 140 mmol/L (137-145) 07/04/21 05:26 Potassium 3.8 mmol/L (3.6-5.0) 07/04/21 05:26 Chloride 98.8 mmol/L (98-107) 07/04/21 05:26 Carbon Dioxide 36 mmol/L (22-30) H 07/04/21 05:26 Anion Gap 9 mmol/L 07/04/21 05:26 BUN 35 mg/dL (7-17) H 07/04/21 05:26 Creatinine 0.5 mg/dL (0.6-1.2) L 07/04/21 05:26 Estimated GFR > 60 ml/min 07/04/21 05:26 BUN/Creatinine Ratio 70 % 07/04/21 05:26 Glucose 149 mg/dL (65-100) H 07/04/21 05:26 POC Glucose 192 mg/dL (70-105) H 07/05/21 06:54 Hemoglobin A1c 6.6 % (4-6) H 06/23/21 05:29 Osmolality 240 Mosm/kg 06/22/21 23:24 Lactic Acid 1.60 mmol/L (0.7-2.0) 06/25/21 22:55 Uric Acid 3.2 mg/dL (3.5-7.6) L 06/23/21 05:29 Calcium 10.0 mg/dL (8.4-10.2) 07/04/21 05:26 Phosphorus 3.10 mg/dL (2.5-4.5) 07/02/21 05:23 Magnesium 1.80 mg/dL (1.7-2.3) 07/02/21 05:23 Ferritin 102.1 ng/mL (10.0-200.0) 06/22/21 08:56 Total Bilirubin 0.30 mg/dL (0.1-1.2) 06/29/21 05:13 Direct Bilirubin < 0.2 mg/dL (0-0.2) 06/26/21 04:32 Indirect Bilirubin 0.1 mg/dL 06/26/21 04:32 AST 12 units/L (5-40) 06/29/21 05:13 ALT 9 units/L (7-56) 06/29/21 05:13 Alkaline Phosphatase 31 units/L (35-129) L 06/29/21 05:13 Lactate Dehydrogenase 220 units/L (91-180) H 06/22/21 08:56 Troponin T < 0.010 ng/mL (0.00-0.029) 06/22/21 07:58 C-Reactive Protein 5.40 mg/dL (0.00-1.30) H 06/22/21 08:56 Total Protein 3.3 g/dL (6.3-8.2) L D 06/29/21 05:13 Albumin 1.9 g/dL (3.9-5) L 06/29/21 05:13 Albumin/Globulin Ratio 1.4 % 06/29/21 05:13 Procalcitonin < 0.05 ng/mL (<0.15) 06/22/21 08:56 TSH 1.070 mlU/mL (0.270-4.200) 06/22/21 07:58 Total Cortisol 36.4 mcg/dL () 06/26/21 16:06 Arterial Blood Glucose 328 mg/dL (65-95) H 06/27/21 05:06 Arterial Blood Ionized Calcium 4.9 mg/dL (4.6-5.3) 06/27/21 05:06 Urine Color Yellow (Yellow) 06/26/21 09:48 Urine Turbidity Slightly-cloudy (Clear) 06/26/21 09:48 Urine pH 6.0 (5.0-7.0) 06/26/21 09:48 Ur Specific [place] 1.014 (1.003-1.030) 06/26/21 09:48 Urine Protein 30 mg/dl mg/dL (Negative) 06/26/21 09:48 Urine Glucose (UA) 50 mg/dL (Negative) 06/26/21 09:48 Urine Ketones 20 mg/dL (Negative) 06/26/21 09:48 Urine Blood Mod (Negative) 06/26/21 09:48 Urine Nitrite Neg (Negative) 06/26/21 09:48 Urine Bilirubin Neg (Negative) 06/26/21 09:48 Urine Urobilinogen < 2.0 mg/dL (<2.0) 06/26/21 09:48 Ur Leukocyte Esterase Mod (Negative) 06/26/21 09:48 Urine WBC (Auto) 69.0 /HPF (0.0-6.0) H 06/26/21 09:48 Urine RBC (Auto) 29.0 /HPF (0.0-6.0) 06/26/21 09:48 U Epithel Cells (Auto) 1.0 /HPF (0-13.0) 06/26/21 09:48 Urine Bacteria (Auto) 4+ /HPF (Negative) 06/26/21 09:48 Ur Transition Epith Cell 1 /HPF 06/22/21 11:47 Hyaline Casts 5 /LPF 06/22/21 11:47 Urine Mucus Few /HPF 06/26/21 09:48 Urine Yeast (Budding) 3+ /HPF 06/26/21 09:48 Urine Osmolality 571 Mosm/kg 06/22/21 11:47 Urine Sodium 25 mmol/L 06/22/21 11:47 Coronavirus (PCR) Negative (Negative) 06/22/21 Unknown Martines/IV: Voiding Method External Female Catheter Active Medications - Current Medications Current Medications: Generic Name Dose Route Start Last Admin Trade Name Freq PRN Reason Stop Dose Admin Acetaminophen 650 mg 06/22/21 22:21 07/04/21 10:22 Acetaminophen 325 Mg Tab PO 650 mg Q4H PRN Administration Pain MILD(1-3)/Fever >100.5/NAVA Lipase/Protease/Amylase 1 each 06/29/21 16:20 Lipase 10,500/Protease 25,000/Amylase 43,750 (Units) Dr Castellanos FEEDTUBE PRN PRN For Clogged Feeding Tube Apixaban 5 mg 07/02/21 12:00 07/04/21 21:32 Apixaban 5 Mg Tab PO 5 mg Q12HR JUDY Administration Protocol Clopidogrel Bisulfate 75 mg 06/23/21 10:00 07/04/21 10:17 Clopidogrel 75 Mg Tab PO 75 mg DAILY JUDY Administration Docusate Sodium 100 mg 06/25/21 22:00 07/04/21 21:32 Docusate Sodium 100 Mg/10 Ml Oral Liqd PO 100 mg BID JUDY Administration Famotidine 20 mg 06/29/21 22:00 07/04/21 21:33 Famotidine 20 Mg Tab FEEDTUBE 20 mg BID JUDY Administration Insulin Human Lispro 0 unit 06/26/21 12:00 07/05/21 07:07 Insulin Lispro 100 Unit/Ml SUB-Q 3 unit Q6HR JUDY Administration Protocol Lisinopril 10 mg 07/03/21 10:00 07/04/21 10:17 Lisinopril 10 Mg Tab PO 10 mg QDAY JUDY Administration Metoclopramide HCl 10 mg 06/22/21 22:21 Metoclopramide 10 Mg/2 Ml Inj IV Q6H PRN Nausea And Vomiting Metoprolol Tartrate 100 mg 07/03/21 10:00 07/04/21 21:32 Metoprolol Tartrate 100 Mg Tab PO 100 mg BID JUDY Administration Ondansetron HCl 4 mg 06/22/21 22:21 Ondansetron 4 Mg/2 Ml Inj IV Q8H PRN Nausea And Vomiting Pravastatin Sodium 40 mg 06/23/21 22:00 07/04/21 21:32 Pravastatin 40 Mg Tab PO 40 mg QHS JUDY Administration Simple Syrup 15 ml 06/29/21 16:20 Simple Syrup 15 Ml FEEDTUBE PRN PRN Hypoglycemia Simple Syrup 30 ml 06/29/21 16:20 Simple Syrup 15 Ml FEEDTUBE PRN PRN Hypoglycemia Sodium Bicarbonate 325 mg 06/29/21 16:20 Sodium Bicarbonate 325 Mg Tab FEEDTUBE PRN PRN For Clogged Feeding Tube Sodium Chloride 10 ml 06/23/21 10:00 07/04/21 21:33 Sodium Chloride 0.9% 10 Ml Flush Syringe IV 10 ml BID JUDY Administration Sodium Chloride 10 ml 06/22/21 22:21 Sodium Chloride 0.9% 10 Ml Flush Syringe IV PRN PRN LINE FLUSH Nutrition/Malnutrition Assess - Dietary Evaluation Nutrition/Malnutrition Findings: Nutrition Notes Start: 06/26/21 11:01 Freq: Status: Active Protocol: Document 07/01/21 18:17 VINCENZO (Rec: 07/01/21 18:27 VINCENZO [email or web address]) Nutrition Notes Initial or Follow up Brief Note Current Diet TF-Vital High Protein @ 50 ml/ hr (since D 06/29). Height 5 ft 5 in Weight 86.183 kg Berry Body Weight (kg) 56.81 BMI 31.6 Weight change and time frame No body weight change reported . Weight Status Obese Subjective/Other Information RD consult for routine F/U on Dietary advancement or TF resume. TF continuation, new formula without changes, thus, well tolerated. Percent of energy/protein needs met: Prescribed Vital High Protein @ 50 ml/hr provides for energy /protein needs (1,200 Kcal/105 g) during LOS. #1 Nutrition Diagnosis Inadequate oral intake Diagnosis Progress(for reassessment Continues documentation) Nutrition Intervention Nutrition Support: Continue Vital High Protein @ 50 ml/hr. Flush: 50 ml water Q 4 hr. Goal #1 Provide at least 75% of energy /protein needs through Enteral Feeding during LOS. Follow-Up By: 07/08/21 Additional Comments Continue monitoring TF tolerance and BM.
--- NOTE | 2021-07-05 09:25 | Progress Note ---
Assessment and Plan - Patient Problems (1) Acute hyponatremia Current Visit: Yes Status: Acute (2) Acute metabolic encephalopathy Current Visit: Yes Status: Acute (3) Atrial fibrillation with RVR Current Visit: Yes Status: Acute (4) Community acquired pneumonia Current Visit: Yes Status: Acute (5) Essential (primary) hypertension Current Visit: Yes Status: Acute (6) Hypokalemia Current Visit: Yes Status: Acute (7) Hypomagnesemia Current Visit: Yes Status: Acute (8) UTI (urinary tract infection) Current Visit: Yes Status: Acute Qualifiers: Urinary tract infection type: acute cystitis (9) Type 2 diabetes mellitus without complications Current Visit: Yes Status: Chronic (10) Acute and chronic respiratory failure with hypercapnia Current Visit: Yes Status: Acute Subjective Principal diagnosis: AF w RVR Interval history: awake and responsive used bipap last pm as per staff and pt Objective Vital Signs - 12hr 07/04/21 07/04/21 07/04/21 21:32 22:00 23:01 Temperature 97.6 F Pulse Rate 108 H 88 Respiratory 20 Rate Blood Pressure 150/65 132/46 O2 Sat by Pulse 97 92 Oximetry 07/05/21 05:18 Temperature Pulse Rate 99 H Respiratory 20 Rate Blood Pressure 143/64 O2 Sat by Pulse 96 Oximetry Constitutional: no acute distress, alert, other (obese) Eyes: non-icteric ENT: oropharynx moist Neck: supple Effort: normal Ascultation: Bilateral: diminished breath sounds, other (coarse BS bilaterally) Cardiovascular: regular rate and rhythm (ir/ir, no mrg) Gastrointestinal: normoactive bowel sounds, soft, non-distended Integumentary: normal Extremities: no cyanosis, no edema, pink and warm Neurologic: normal mental status, non-focal exam, pupils equal and round, CN II- XII normal Psychiatric: mood appropriate, affect normal CBC and BMP: 07/04/21 05:26 07/05/21 07:55 ABG, PT/INR, D-dimer: ABG ABG pH 7.480 (7.320-7.450) H 06/27/21 05:06 POC ABG pCO2 38.0 mmHg (32.0-48.0) 06/27/21 05:06 ABG pCO2 35.8 mm Hg 06/26/21 10:00 POC ABG pO2 93.6 mmHg (83-108) 06/27/21 05:06 ABG pO2 125.4 mm Hg (80.0-90.0) H 06/26/21 10:00 POC ABG HCO3 27.7 06/27/21 05:06 ABG O2 Saturation 98.0 (0-100) 06/27/21 05:06 PT/INR, D-dimer PT 13.0 Sec. (12.2-14.9) 07/02/21 05:30 INR 0.88 (0.87-1.13) 07/02/21 05:30 D-Dimer 390 ng/mlDDU (0-234) H 06/22/21 08:56 Abnormal lab findings: Abnormal Labs 06/22/21 06/22/21 06/22/21 07:58 07:58 07:58 WBC 13.0 H RBC Hgb MCHC 35 H Lymph % (Auto) 6.3 L [place] % (Auto) 7.4 H Lymph # (Auto) 0.8 L [place] # (Auto) 1.0 H Seg Neutrophils % 85.5 H Seg Neuts % (Manual) Lymphocytes % (Manual) Seg Neutrophils # 11.1 H Seg Neutrophils # Man Lymphocytes # (Manual) PT 11.8 L INR 0.78 L D-Dimer Heparin Anti-Xa Level ABG pH POC ABG pCO2 ABG pO2 ABG HCO3 ABG O2 Saturation ABG Base Excess ABG Hemoglobin ABG Oxyhemoglobin ABG Sodium ABG Chloride ABG Glucose Sodium 107 L* Potassium 2.7 L* Chloride 60.0 L Carbon Dioxide 32 H BUN Creatinine 0.5 L Glucose 177 H POC Glucose Hemoglobin A1c Lactic Acid Uric Acid Calcium Phosphorus Magnesium Alkaline Phosphatase Lactate Dehydrogenase C-Reactive Protein Total Protein Albumin Arterial Blood Glucose Urine WBC (Auto) 06/22/21 06/22/21 06/22/21 08:56 08:56 08:56 WBC RBC Hgb MCHC Lymph % (Auto) [place] % (Auto) Lymph # (Auto) [place] # (Auto) Seg Neutrophils % Seg Neuts % (Manual) Lymphocytes % (Manual) Seg Neutrophils # Seg Neutrophils # Man Lymphocytes # (Manual) PT INR D-Dimer 390 H Heparin Anti-Xa Level ABG pH POC ABG pCO2 ABG pO2 ABG HCO3 ABG O2 Saturation ABG Base Excess ABG Hemoglobin ABG Oxyhemoglobin ABG Sodium ABG Chloride ABG Glucose Sodium Potassium Chloride Carbon Dioxide BUN Creatinine Glucose 179 H POC Glucose Hemoglobin A1c Lactic Acid 2.10 H* Uric Acid Calcium Phosphorus Magnesium Alkaline Phosphatase Lactate Dehydrogenase 220 H C-Reactive Protein 5.40 H Total Protein Albumin Arterial Blood Glucose Urine WBC (Auto) 06/22/21 06/22/21 06/22/21 08:56 11:47 14:20 WBC RBC Hgb MCHC Lymph % (Auto) [place] % (Auto) Lymph # (Auto) [place] # (Auto) Seg Neutrophils % Seg Neuts % (Manual) Lymphocytes % (Manual) Seg Neutrophils # Seg Neutrophils # Man Lymphocytes # (Manual) PT INR D-Dimer Heparin Anti-Xa Level ABG pH POC ABG pCO2 ABG pO2 ABG HCO3 ABG O2 Saturation ABG Base Excess ABG Hemoglobin ABG Oxyhemoglobin ABG Sodium ABG Chloride ABG Glucose Sodium 104 L* 112 L* D Potassium 3.2 L 2.7 L* Chloride 60.0 L 65.2 L Carbon Dioxide 32 H BUN Creatinine 0.4 L 0.4 L Glucose 181 H 119 H POC Glucose Hemoglobin A1c Lactic Acid Uric Acid Calcium Phosphorus Magnesium Alkaline Phosphatase Lactate Dehydrogenase C-Reactive Protein Total Protein Albumin Arterial Blood Glucose Urine WBC (Auto) 11.0 H 06/22/21 06/23/21 06/23/21 18:19 05:29 05:29 WBC 12.4 H RBC Hgb MCHC Lymph % (Auto) 5.8 L [place] % (Auto) Lymph # (Auto) 0.7 L [place] # (Auto) 0.9 H Seg Neutrophils % 87.1 H Seg Neuts % (Manual) Lymphocytes % (Manual) Seg Neutrophils # 10.8 H Seg Neutrophils # Man Lymphocytes # (Manual) PT INR D-Dimer Heparin Anti-Xa Level ABG pH POC ABG pCO2 ABG pO2 ABG HCO3 ABG O2 Saturation ABG Base Excess ABG Hemoglobin ABG Oxyhemoglobin ABG Sodium ABG Chloride ABG Glucose Sodium 112 L* 112 L* Potassium 2.7 L* 2.6 L* Chloride 65.8 L 67.5 L Carbon Dioxide 31 H 33 H BUN Creatinine 0.3 L 0.4 L Glucose POC Glucose Hemoglobin A1c Lactic Acid Uric Acid 3.2 L Calcium Phosphorus Magnesium Alkaline Phosphatase Lactate Dehydrogenase C-Reactive Protein Total Protein Albumin Arterial Blood Glucose Urine WBC (Auto) 06/23/21 06/23/21 06/23/21 05:29 05:29 12:11 WBC RBC Hgb MCHC Lymph % (Auto) [place] % (Auto) Lymph # (Auto) [place] # (Auto) Seg Neutrophils % Seg Neuts % (Manual) Lymphocytes % (Manual) Seg Neutrophils # Seg Neutrophils # Man Lymphocytes # (Manual) PT INR D-Dimer Heparin Anti-Xa Level ABG pH POC ABG pCO2 ABG pO2 ABG HCO3 ABG O2 Saturation ABG Base Excess ABG Hemoglobin ABG Oxyhemoglobin ABG Sodium ABG Chloride ABG Glucose Sodium 113 L* Potassium 2.6 L* Chloride 69.7 L Carbon Dioxide BUN Creatinine 0.4 L Glucose 106 H POC Glucose Hemoglobin A1c 6.6 H Lactic Acid Uric Acid Calcium Phosphorus Magnesium 1.50 L Alkaline Phosphatase Lactate Dehydrogenase C-Reactive Protein Total Protein Albumin Arterial Blood Glucose Urine WBC (Auto) 06/23/21 06/24/21 06/24/21 17:43 00:43 00:45 WBC RBC Hgb MCHC Lymph % (Auto) [place] % (Auto) Lymph # (Auto) [place] # (Auto) Seg Neutrophils % Seg Neuts % (Manual) Lymphocytes % (Manual) Seg Neutrophils # Seg Neutrophils # Man Lymphocytes # (Manual) PT INR D-Dimer Heparin Anti-Xa Level ABG pH POC ABG pCO2 ABG pO2 ABG HCO3 ABG O2 Saturation ABG Base Excess ABG Hemoglobin ABG Oxyhemoglobin ABG Sodium ABG Chloride ABG Glucose Sodium 117 L* 119 L* Potassium Chloride 74.9 L 79.6 L Carbon Dioxide 32 H BUN Creatinine 0.3 L 0.4 L Glucose 125 H 116 H POC Glucose 117 H Hemoglobin A1c Lactic Acid Uric Acid Calcium Phosphorus Magnesium Alkaline Phosphatase Lactate Dehydrogenase C-Reactive Protein Total Protein Albumin Arterial Blood Glucose Urine WBC (Auto) 06/24/21 06/24/21 06/24/21 05:33 05:33 06:11 WBC 12.0 H RBC Hgb MCHC Lymph % (Auto) [place] % (Auto) Lymph # (Auto) [place] # (Auto) Seg Neutrophils % Seg Neuts % (Manual) 95.0 H Lymphocytes % (Manual) 2.0 L Seg Neutrophils # Seg Neutrophils # Man 11.4 H Lymphocytes # (Manual) 0.2 L PT INR D-Dimer Heparin Anti-Xa Level ABG pH POC ABG pCO2 ABG pO2 ABG HCO3 ABG O2 Saturation ABG Base Excess ABG Hemoglobin ABG Oxyhemoglobin ABG Sodium ABG Chloride ABG Glucose Sodium 122 L Potassium Chloride 80.2 L Carbon Dioxide 31 H BUN Creatinine 0.3 L Glucose 143 H POC Glucose 141 H Hemoglobin A1c Lactic Acid Uric Acid Calcium Phosphorus Magnesium Alkaline Phosphatase Lactate Dehydrogenase C-Reactive Protein Total Protein Albumin Arterial Blood Glucose Urine WBC (Auto) 06/24/21 06/24/21 06/24/21 16:25 18:16 23:49 WBC RBC Hgb MCHC Lymph % (Auto) [place] % (Auto) Lymph # (Auto) [place] # (Auto) Seg Neutrophils % Seg Neuts % (Manual) Lymphocytes % (Manual) Seg Neutrophils # Seg Neutrophils # Man Lymphocytes # (Manual) PT INR D-Dimer Heparin Anti-Xa Level ABG pH POC ABG pCO2 ABG pO2 ABG HCO3 ABG O2 Saturation ABG Base Excess ABG Hemoglobin ABG Oxyhemoglobin ABG Sodium ABG Chloride ABG Glucose Sodium 122 L 123 L Potassium Chloride 78.9 L Carbon Dioxide 32 H BUN Creatinine 0.5 L D Glucose 141 H POC Glucose 162 H Hemoglobin A1c Lactic Acid Uric Acid Calcium Phosphorus Magnesium Alkaline Phosphatase Lactate Dehydrogenase C-Reactive Protein Total Protein Albumin Arterial Blood Glucose Urine WBC (Auto) 06/25/21 06/25/21 06/25/21 00:18 03:06 06:15 WBC RBC Hgb MCHC Lymph % (Auto) [place] % (Auto) Lymph # (Auto) [place] # (Auto) Seg Neutrophils % Seg Neuts % (Manual) Lymphocytes % (Manual) Seg Neutrophils # Seg Neutrophils # Man Lymphocytes # (Manual) PT INR D-Dimer Heparin Anti-Xa Level ABG pH POC ABG pCO2 ABG pO2 ABG HCO3 ABG O2 Saturation ABG Base Excess ABG Hemoglobin ABG Oxyhemoglobin ABG Sodium ABG Chloride ABG Glucose Sodium 122 L Potassium Chloride Carbon Dioxide BUN Creatinine Glucose POC Glucose 151 H 149 H Hemoglobin A1c Lactic Acid Uric Acid Calcium Phosphorus Magnesium Alkaline Phosphatase Lactate Dehydrogenase C-Reactive Protein Total Protein Albumin Arterial Blood Glucose Urine WBC (Auto) 06/25/21 06/25/21 06/25/21 10:19 13:42 13:42 WBC RBC Hgb MCHC Lymph % (Auto) [place] % (Auto) Lymph # (Auto) [place] # (Auto) Seg Neutrophils % Seg Neuts % (Manual) Lymphocytes % (Manual) Seg Neutrophils # Seg Neutrophils # Man Lymphocytes # (Manual) PT INR 0.85 L D-Dimer Heparin Anti-Xa Level ABG pH POC ABG pCO2 ABG pO2 ABG HCO3 ABG O2 Saturation ABG Base Excess ABG Hemoglobin ABG Oxyhemoglobin ABG Sodium ABG Chloride ABG Glucose Sodium 123 L Potassium Chloride 78.5 L Carbon Dioxide 32 H BUN 19 H Creatinine Glucose 193 H POC Glucose 152 H Hemoglobin A1c Lactic Acid Uric Acid Calcium Phosphorus Magnesium Alkaline Phosphatase Lactate Dehydrogenase C-Reactive Protein Total Protein Albumin Arterial Blood Glucose Urine WBC (Auto) 06/25/21 06/25/21 06/25/21 15:13 15:21 19:49 WBC RBC Hgb MCHC Lymph % (Auto) [place] % (Auto) Lymph # (Auto) [place] # (Auto) Seg Neutrophils % Seg Neuts % (Manual) Lymphocytes % (Manual) Seg Neutrophils # Seg Neutrophils # Man Lymphocytes # (Manual) PT INR D-Dimer Heparin Anti-Xa Level < 0.10 L ABG pH POC ABG pCO2 ABG pO2 ABG HCO3 ABG O2 Saturation ABG Base Excess ABG Hemoglobin ABG Oxyhemoglobin ABG Sodium ABG Chloride ABG Glucose Sodium Potassium Chloride Carbon Dioxide BUN Creatinine Glucose POC Glucose 221 H 194 H Hemoglobin A1c Lactic Acid Uric Acid Calcium Phosphorus Magnesium Alkaline Phosphatase Lactate Dehydrogenase C-Reactive Protein Total Protein Albumin Arterial Blood Glucose Urine WBC (Auto) 06/25/21 06/25/21 06/25/21 21:21 22:55 22:55 WBC 14.8 H RBC Hgb MCHC Lymph % (Auto) [place] % (Auto) Lymph # (Auto) [place] # (Auto) Seg Neutrophils % Seg Neuts % (Manual) 91.0 H Lymphocytes % (Manual) 6.0 L Seg Neutrophils # Seg Neutrophils # Man 13.5 H Lymphocytes # (Manual) 0.9 L PT INR D-Dimer Heparin Anti-Xa Level ABG pH 7.086 L POC ABG pCO2 104.9 H ABG pO2 ABG HCO3 ABG O2 Saturation ABG Base Excess ABG Hemoglobin ABG Oxyhemoglobin 92.4 L ABG Sodium 123.4 L ABG Chloride 81.0 L ABG Glucose 225 H Sodium 124 L Potassium Chloride 82.9 L Carbon Dioxide BUN 22 H Creatinine Glucose 226 H POC Glucose Hemoglobin A1c Lactic Acid Uric Acid Calcium 8.2 L Phosphorus 4.70 H Magnesium Alkaline Phosphatase Lactate Dehydrogenase C-Reactive Protein Total Protein Albumin Arterial Blood Glucose 225 H Urine WBC (Auto) 1206/26/21 06/26/21 00:35 02:58 04:32 WBC RBC Hgb MCHC Lymph % (Auto) [place] % (Auto) Lymph # (Auto) [place] # (Auto) Seg Neutrophils % Seg Neuts % (Manual) Lymphocytes % (Manual) Seg Neutrophils # Seg Neutrophils # Man Lymphocytes # (Manual) PT INR D-Dimer Heparin Anti-Xa Level ABG pH POC ABG pCO2 ABG pO2 439.6 H ABG HCO3 30.0 H ABG O2 Saturation 99.6 H ABG Base Excess 3.3 H ABG Hemoglobin ABG Oxyhemoglobin ABG Sodium ABG Chloride ABG Glucose Sodium 123 L Potassium Chloride 79.2 L Carbon Dioxide BUN 26 H Creatinine Glucose 202 H POC Glucose 227 H Hemoglobin A1c Lactic Acid Uric Acid Calcium Phosphorus Magnesium Alkaline Phosphatase Lactate Dehydrogenase C-Reactive Protein Total Protein 5.9 L Albumin 2.8 L Arterial Blood Glucose Urine WBC (Auto) 06/26/21 06/26/21 06/26/21 05:53 09:14 09:48 WBC RBC Hgb MCHC Lymph % (Auto) [place] % (Auto) Lymph # (Auto) [place] # (Auto) Seg Neutrophils % Seg Neuts % (Manual) Lymphocytes % (Manual) Seg Neutrophils # Seg Neutrophils # Man Lymphocytes # (Manual) PT INR D-Dimer Heparin Anti-Xa Level ABG pH POC ABG pCO2 ABG pO2 ABG HCO3 ABG O2 Saturation ABG Base Excess ABG Hemoglobin ABG Oxyhemoglobin ABG Sodium ABG Chloride ABG Glucose Sodium Potassium Chloride Carbon Dioxide BUN Creatinine Glucose POC Glucose 187 H 194 H Hemoglobin A1c Lactic Acid Uric Acid Calcium Phosphorus Magnesium Alkaline Phosphatase Lactate Dehydrogenase C-Reactive Protein Total Protein Albumin Arterial Blood Glucose Urine WBC (Auto) 69.0 H 06/26/21 06/26/21 06/26/21 10:00 16:06 22:34 WBC RBC Hgb MCHC Lymph % (Auto) [place] % (Auto) Lymph # (Auto) [place] # (Auto) Seg Neutrophils % Seg Neuts % (Manual) Lymphocytes % (Manual) Seg Neutrophils # Seg Neutrophils # Man Lymphocytes # (Manual) PT INR D-Dimer Heparin Anti-Xa Level ABG pH 7.467 H POC ABG pCO2 ABG pO2 125.4 H ABG HCO3 ABG O2 Saturation ABG Base Excess ABG Hemoglobin ABG Oxyhemoglobin ABG Sodium ABG Chloride ABG Glucose Sodium 128 L Potassium Chloride 88.6 L Carbon Dioxide BUN 32 H Creatinine Glucose 161 H POC Glucose 231 H Hemoglobin A1c Lactic Acid Uric Acid Calcium Phosphorus Magnesium Alkaline Phosphatase Lactate Dehydrogenase C-Reactive Protein Total Protein Albumin Arterial Blood Glucose Urine WBC (Auto) 06/26/21 06/27/21 06/27/21 23:32 05:06 06:00 WBC 12.0 H RBC Hgb MCHC Lymph % (Auto) [place] % (Auto) Lymph # (Auto) [place] # (Auto) Seg Neutrophils % Seg Neuts % (Manual) Lymphocytes % (Manual) Seg Neutrophils # Seg Neutrophils # Man Lymphocytes # (Manual) PT INR D-Dimer Heparin Anti-Xa Level ABG pH 7.480 H POC ABG pCO2 ABG pO2 ABG HCO3 ABG O2 Saturation ABG Base Excess ABG Hemoglobin 11.9 L ABG Oxyhemoglobin ABG Sodium 123.5 L ABG Chloride 91.0 L ABG Glucose 328 H Sodium 126 L Potassium Chloride 89.2 L Carbon Dioxide BUN 34 H Creatinine Glucose 257 H POC Glucose Hemoglobin A1c Lactic Acid Uric Acid Calcium Phosphorus Magnesium Alkaline Phosphatase Lactate Dehydrogenase C-Reactive Protein Total Protein Albumin Arterial Blood Glucose 328 H Urine WBC (Auto) 06/27/21 06/27/21 06/27/21 06:00 11:41 17:06 WBC RBC Hgb MCHC Lymph % (Auto) [place] % (Auto) Lymph # (Auto) [place] # (Auto) Seg Neutrophils % Seg Neuts % (Manual) Lymphocytes % (Manual) Seg Neutrophils # Seg Neutrophils # Man Lymphocytes # (Manual) PT INR D-Dimer Heparin Anti-Xa Level ABG pH POC ABG pCO2 ABG pO2 ABG HCO3 ABG O2 Saturation ABG Base Excess ABG Hemoglobin ABG Oxyhemoglobin ABG Sodium ABG Chloride ABG Glucose Sodium 128 L Potassium Chloride 91.4 L Carbon Dioxide BUN 36 H Creatinine Glucose 346 H POC Glucose 259 H 301 H Hemoglobin A1c Lactic Acid Uric Acid Calcium Phosphorus Magnesium Alkaline Phosphatase Lactate Dehydrogenase C-Reactive Protein Total Protein Albumin Arterial Blood Glucose Urine WBC (Auto) 06/27/21 06/28/21 06/28/21 23:36 03:00 03:00 WBC 14.9 H RBC 3.46 L Hgb MCHC Lymph % (Auto) 2.8 L [place] % (Auto) 7.5 H Lymph # (Auto) 0.4 L [place] # (Auto) 1.1 H Seg Neutrophils % 89.6 H Seg Neuts % (Manual) Lymphocytes % (Manual) Seg Neutrophils # 13.4 H Seg Neutrophils # Man Lymphocytes # (Manual) PT INR D-Dimer Heparin Anti-Xa Level ABG pH POC ABG pCO2 ABG pO2 ABG HCO3 ABG O2 Saturation ABG Base Excess ABG Hemoglobin ABG Oxyhemoglobin ABG Sodium ABG Chloride ABG Glucose Sodium 134 L Potassium Chloride 91.1 L Carbon Dioxide BUN 35 H Creatinine Glucose 235 H POC Glucose 215 H Hemoglobin A1c Lactic Acid Uric Acid Calcium Phosphorus 1.10 L Magnesium Alkaline Phosphatase Lactate Dehydrogenase C-Reactive Protein Total Protein Albumin Arterial Blood Glucose Urine WBC (Auto) 06/28/21 06/28/21 06/28/21 03:00 05:13 16:53 WBC RBC Hgb MCHC Lymph % (Auto) [place] % (Auto) Lymph # (Auto) [place] # (Auto) Seg Neutrophils % Seg Neuts % (Manual) Lymphocytes % (Manual) Seg Neutrophils # Seg Neutrophils # Man Lymphocytes # (Manual) PT INR D-Dimer Heparin Anti-Xa Level 0.27 L ABG pH POC ABG pCO2 ABG pO2 ABG HCO3 ABG O2 Saturation ABG Base Excess ABG Hemoglobin ABG Oxyhemoglobin ABG Sodium ABG Chloride ABG Glucose Sodium Potassium Chloride Carbon Dioxide BUN Creatinine Glucose POC Glucose 241 H 213 H Hemoglobin A1c Lactic Acid Uric Acid Calcium Phosphorus Magnesium Alkaline Phosphatase Lactate Dehydrogenase C-Reactive Protein Total Protein Albumin Arterial Blood Glucose Urine WBC (Auto) 06/28/21 06/29/21 06/29/21 23:32 05:13 05:13 WBC RBC Hgb MCHC Lymph % (Auto) [place] % (Auto) Lymph # (Auto) [place] # (Auto) Seg Neutrophils % Seg Neuts % (Manual) Lymphocytes % (Manual) Seg Neutrophils # Seg Neutrophils # Man Lymphocytes # (Manual) PT INR D-Dimer Heparin Anti-Xa Level 0.13 L ABG pH POC ABG pCO2 ABG pO2 ABG HCO3 ABG O2 Saturation ABG Base Excess ABG Hemoglobin ABG Oxyhemoglobin ABG Sodium ABG Chloride ABG Glucose Sodium 133 L Potassium Chloride Carbon Dioxide BUN 34 H Creatinine 0.5 L Glucose 186 H POC Glucose 236 H Hemoglobin A1c Lactic Acid Uric Acid Calcium Phosphorus 2.20 L D Magnesium Alkaline Phosphatase 31 L Lactate Dehydrogenase C-Reactive Protein Total Protein 3.3 L D Albumin 1.9 L Arterial Blood Glucose Urine WBC (Auto) 06/29/21 06/29/21 06/29/21 06:00 06:00 06:00 WBC 12.7 H RBC 3.36 L Hgb 10.0 L MCHC Lymph % (Auto) 9.5 L [place] % (Auto) 8.6 H Lymph # (Auto) [place] # (Auto) 1.1 H Seg Neutrophils % 80.4 H Seg Neuts % (Manual) Lymphocytes % (Manual) Seg Neutrophils # 10.2 H Seg Neutrophils # Man Lymphocytes # (Manual) PT INR D-Dimer Heparin Anti-Xa Level 0.22 L ABG pH POC ABG pCO2 ABG pO2 ABG HCO3 ABG O2 Saturation ABG Base Excess ABG Hemoglobin ABG Oxyhemoglobin ABG Sodium ABG Chloride ABG Glucose Sodium 134 L Potassium Chloride 97.8 L Carbon Dioxide BUN 33 H Creatinine Glucose 189 H POC Glucose Hemoglobin A1c Lactic Acid Uric Acid Calcium Phosphorus Magnesium Alkaline Phosphatase Lactate Dehydrogenase C-Reactive Protein Total Protein Albumin Arterial Blood Glucose Urine WBC (Auto) 06/29/21 06/29/21 06/30/21 12:02 17:20 04:20 WBC 11.9 H RBC 3.37 L Hgb MCHC Lymph % (Auto) 8.6 L [place] % (Auto) 8.3 H Lymph # (Auto) 1.0 L [place] # (Auto) 1.0 H Seg Neutrophils % 82.6 H Seg Neuts % (Manual) Lymphocytes % (Manual) Seg Neutrophils # 9.8 H Seg Neutrophils # Man Lymphocytes # (Manual) PT INR D-Dimer Heparin Anti-Xa Level ABG pH POC ABG pCO2 ABG pO2 ABG HCO3 ABG O2 Saturation ABG Base Excess ABG Hemoglobin ABG Oxyhemoglobin ABG Sodium ABG Chloride ABG Glucose Sodium Potassium Chloride Carbon Dioxide BUN Creatinine Glucose POC Glucose 249 H 172 H Hemoglobin A1c Lactic Acid Uric Acid Calcium Phosphorus Magnesium Alkaline Phosphatase Lactate Dehydrogenase C-Reactive Protein Total Protein Albumin Arterial Blood Glucose Urine WBC (Auto) 06/30/21 06/30/21 07/01/21 04:20 04:20 04:00 WBC RBC Hgb MCHC Lymph % (Auto) [place] % (Auto) Lymph # (Auto) [place] # (Auto) Seg Neutrophils % Seg Neuts % (Manual) Lymphocytes % (Manual) Seg Neutrophils # Seg Neutrophils # Man Lymphocytes # (Manual) PT INR D-Dimer Heparin Anti-Xa Level 0.29 L 0.26 L ABG pH POC ABG pCO2 ABG pO2 ABG HCO3 ABG O2 Saturation ABG Base Excess ABG Hemoglobin ABG Oxyhemoglobin ABG Sodium ABG Chloride ABG Glucose Sodium Potassium Chloride Carbon Dioxide BUN 30 H Creatinine 0.5 L Glucose POC Glucose Hemoglobin A1c Lactic Acid Uric Acid Calcium Phosphorus Magnesium Alkaline Phosphatase Lactate Dehydrogenase C-Reactive Protein Total Protein Albumin Arterial Blood Glucose Urine WBC (Auto) 07/01/21 07/01/21 07/01/21 04:00 06:00 08:33 WBC RBC Hgb MCHC Lymph % (Auto) [place] % (Auto) Lymph # (Auto) [place] # (Auto) Seg Neutrophils % Seg Neuts % (Manual) Lymphocytes % (Manual) Seg Neutrophils # Seg Neutrophils # Man Lymphocytes # (Manual) PT INR D-Dimer Heparin Anti-Xa Level ABG pH POC ABG pCO2 ABG pO2 ABG HCO3 ABG O2 Saturation ABG Base Excess ABG Hemoglobin ABG Oxyhemoglobin ABG Sodium ABG Chloride ABG Glucose Sodium Potassium Chloride Carbon Dioxide BUN 25 H Creatinine 0.4 L Glucose POC Glucose 69 L 131 H Hemoglobin A1c Lactic Acid Uric Acid Calcium Phosphorus Magnesium Alkaline Phosphatase Lactate Dehydrogenase C-Reactive Protein Total Protein Albumin Arterial Blood Glucose Urine WBC (Auto) 07/01/21 07/01/21 07/02/21 16:59 Unknown 05:23 WBC 12.2 H RBC 3.57 L Hgb MCHC Lymph % (Auto) [place] % (Auto) Lymph # (Auto) [place] # (Auto) Seg Neutrophils % Seg Neuts % (Manual) Lymphocytes % (Manual) Seg Neutrophils # Seg Neutrophils # Man Lymphocytes # (Manual) PT INR D-Dimer Heparin Anti-Xa Level 0.29 L ABG pH POC ABG pCO2 ABG pO2 ABG HCO3 ABG O2 Saturation ABG Base Excess ABG Hemoglobin ABG Oxyhemoglobin ABG Sodium ABG Chloride ABG Glucose Sodium Potassium Chloride Carbon Dioxide BUN Creatinine Glucose POC Glucose 109 H Hemoglobin A1c Lactic Acid Uric Acid Calcium Phosphorus Magnesium Alkaline Phosphatase Lactate Dehydrogenase C-Reactive Protein Total Protein Albumin Arterial Blood Glucose Urine WBC (Auto) 07/02/21 07/02/21 07/02/21 05:23 05:23 05:29 WBC RBC 3.35 L Hgb MCHC Lymph % (Auto) [place] % (Auto) Lymph # (Auto) [place] # (Auto) Seg Neutrophils % Seg Neuts % (Manual) Lymphocytes % (Manual) Seg Neutrophils # Seg Neutrophils # Man Lymphocytes # (Manual) PT INR D-Dimer Heparin Anti-Xa Level ABG pH POC ABG pCO2 ABG pO2 ABG HCO3 ABG O2 Saturation ABG Base Excess ABG Hemoglobin ABG Oxyhemoglobin ABG Sodium ABG Chloride ABG Glucose Sodium Potassium Chloride Carbon Dioxide 33 H BUN 21 H Creatinine 0.5 L Glucose 122 H POC Glucose 118 H Hemoglobin A1c Lactic Acid Uric Acid Calcium Phosphorus Magnesium Alkaline Phosphatase Lactate Dehydrogenase C-Reactive Protein Total Protein Albumin Arterial Blood Glucose Urine WBC (Auto) 07/02/21 07/02/21 07/02/21 11:38 18:08 23:27 WBC RBC Hgb MCHC Lymph % (Auto) [place] % (Auto) Lymph # (Auto) [place] # (Auto) Seg Neutrophils % Seg Neuts % (Manual) Lymphocytes % (Manual) Seg Neutrophils # Seg Neutrophils # Man Lymphocytes # (Manual) PT INR D-Dimer Heparin Anti-Xa Level ABG pH POC ABG pCO2 ABG pO2 ABG HCO3 ABG O2 Saturation ABG Base Excess ABG Hemoglobin ABG Oxyhemoglobin ABG Sodium ABG Chloride ABG Glucose Sodium Potassium Chloride Carbon Dioxide BUN Creatinine Glucose POC Glucose 177 H 153 H 143 H Hemoglobin A1c Lactic Acid Uric Acid Calcium Phosphorus Magnesium Alkaline Phosphatase Lactate Dehydrogenase C-Reactive Protein Total Protein Albumin Arterial Blood Glucose Urine WBC (Auto) 07/03/21 07/03/21 07/03/21 04:09 07:57 10:59 WBC RBC Hgb MCHC Lymph % (Auto) [place] % (Auto) Lymph # (Auto) [place] # (Auto) Seg Neutrophils % Seg Neuts % (Manual) Lymphocytes % (Manual) Seg Neutrophils # Seg Neutrophils # Man Lymphocytes # (Manual) PT INR D-Dimer Heparin Anti-Xa Level 1.90 H ABG pH POC ABG pCO2 ABG pO2 ABG HCO3 ABG O2 Saturation ABG Base Excess ABG Hemoglobin ABG Oxyhemoglobin ABG Sodium ABG Chloride ABG Glucose Sodium Potassium Chloride Carbon Dioxide BUN Creatinine Glucose POC Glucose 158 H 175 H Hemoglobin A1c Lactic Acid Uric Acid Calcium Phosphorus Magnesium Alkaline Phosphatase Lactate Dehydrogenase C-Reactive Protein Total Protein Albumin Arterial Blood Glucose Urine WBC (Auto) 07/03/21 07/03/21 07/04/21 15:40 23:45 04:52 WBC RBC Hgb MCHC Lymph % (Auto) [place] % (Auto) Lymph # (Auto) [place] # (Auto) Seg Neutrophils % Seg Neuts % (Manual) Lymphocytes % (Manual) Seg Neutrophils # Seg Neutrophils # Man Lymphocytes # (Manual) PT INR D-Dimer Heparin Anti-Xa Level ABG pH POC ABG pCO2 ABG pO2 ABG HCO3 ABG O2 Saturation ABG Base Excess ABG Hemoglobin ABG Oxyhemoglobin ABG Sodium ABG Chloride ABG Glucose Sodium Potassium Chloride Carbon Dioxide BUN Creatinine Glucose POC Glucose 209 H 168 H 155 H Hemoglobin A1c Lactic Acid Uric Acid Calcium Phosphorus Magnesium Alkaline Phosphatase Lactate Dehydrogenase C-Reactive Protein Total Protein Albumin Arterial Blood Glucose Urine WBC (Auto) 07/04/21 07/04/21 07/04/21 05:26 05:26 12:01 WBC RBC 3.32 L Hgb 9.9 L MCHC Lymph % (Auto) Wilkes % (Auto) Lymph # (Auto) Wilkes # (Auto) Seg Neutrophils % Seg Neuts % (Manual) Lymphocytes % (Manual) Seg Neutrophils # Seg Neutrophils # Man Lymphocytes # (Manual) PT INR D-Dimer Heparin Anti-Xa Level ABG pH POC ABG pCO2 ABG pO2 ABG HCO3 ABG O2 Saturation ABG Base Excess ABG Hemoglobin ABG Oxyhemoglobin ABG Sodium ABG Chloride ABG Glucose Sodium Potassium Chloride Carbon Dioxide 36 H BUN 35 H Creatinine 0.5 L Glucose 149 H POC Glucose 184 H Hemoglobin A1c Lactic Acid Uric Acid Calcium Phosphorus Magnesium Alkaline Phosphatase Lactate Dehydrogenase C-Reactive Protein Total Protein Albumin Arterial Blood Glucose Urine WBC (Auto) 07/04/21 07/04/21 07/05/21 17:14 22:15 06:54 WBC RBC Hgb MCHC Lymph % (Auto) Wilkes % (Auto) Lymph # (Auto) Wilkes # (Auto) Seg Neutrophils % Seg Neuts % (Manual) Lymphocytes % (Manual) Seg Neutrophils # Seg Neutrophils # Man Lymphocytes # (Manual) PT INR D-Dimer Heparin Anti-Xa Level ABG pH POC ABG pCO2 ABG pO2 ABG HCO3 ABG O2 Saturation ABG Base Excess ABG Hemoglobin ABG Oxyhemoglobin ABG Sodium ABG Chloride ABG Glucose Sodium Potassium Chloride Carbon Dioxide BUN Creatinine Glucose POC Glucose 151 H 189 H 192 H Hemoglobin A1c Lactic Acid Uric Acid Calcium Phosphorus Magnesium Alkaline Phosphatase Lactate Dehydrogenase C-Reactive Protein Total Protein Albumin Arterial Blood Glucose Urine WBC (Auto) Allied health notes reviewed: nursing
[2021-07-05] MEDS: METOPROLOL TARTRATE 100 MG TAB PO SCH ×2 (09:49→22:50)
[2021-07-05] MEDS: LISINOPRIL 10 MG TAB PO SCH (09:49)
[2021-07-05] MEDS: DOCUSATE SODIUM 100 MG/10 ML ORAL LIQD PO SCH ×2 (09:49→22:15)
[2021-07-05] MEDS: FAMOTIDINE 20 MG TAB FEEDTUBE SCH ×2 (09:49→22:12)
[2021-07-05] MEDS: APIXABAN 5 MG TAB PO SCH ×2 (09:49→22:12)
[2021-07-05] MEDS: CLOPIDOGREL 75 MG TAB PO SCH (09:49)
--- NOTE | 2021-07-05 10:47 | Progress Note ---
Assessment and Plan Patient is 65-year-old female with a past medical history of hypertension, diabetes, and tobacco use who is brought to the ED for complaint of weakness and altered mental status that lasted 4 days prior to admission Acute Encephalopathy Symptomatic Hyponatremia-nephrology following Acute Respiratory Failure-on Bipap PNA UTI Hypotension AF with RVR (new onset) Hypokalemia (resolved) Hypomagnesemia (resolved) H/o HTN DM2 H/o Tobacco Abuse Echo reviewed - EF 60-65%, no significant valvular abnormalities. Plan: Patient is converting between A. fib and sinus rhythm Continue Eliquis for anticoagulation cont metoprolol 100 mg p.o. BID cont lisinopril 10 mg p.o. daily discuss with primary low dose lasix to see if repisatory status will improve pt off bipap on 5 l, cont pulmonary treatment Subjective Date of service: 07/05/21 Principal diagnosis: AF w RVR Interval history: pt sleeping Objective Vital Signs Temp Pulse Resp BP Pulse Ox 07/05/21 10:36 103 H 07/05/21 08:23 97.4 F L 108 H 24 159/65 97 07/05/21 05:18 99 H 20 143/64 96 07/04/21 23:01 97.6 F 88 20 132/46 92 07/04/21 22:00 97 07/04/21 21:32 108 H 150/65 07/04/21 20:10 97.4 F L 108 H 19 150/65 95 07/04/21 16:42 97.4 F L 98 H 20 142/56 98 07/04/21 12:00 97.5 F L 73 20 119/44 100 07/04/21 11:10 98 - Physical Examination General: No Apparent Distress HEENT: Positive: Normocephaly, Mucus Membranes Dry Neck: Positive: neck supple, trachea midline Cardiac: Positive: Reg Rate and Rhythm Lungs: Positive: clear to auscultation Neuro: Positive: Grossly Intact Abdomen: Positive: Soft Skin: Negative: Rash Musculoskeletal: No Fluid Collection Extremities: Present: lower extr. pulses, warm. Absent: edema - Labs and Meds Comprehensive Metabolic Panel 07/05/21 Range/Units 07:55 Creatinine 0.6 (0.6-1.2) mg/dL - Imaging and Cardiology EKG: report reviewed, image reviewed Echo: report reviewed - Telemetry EKG Rhythm: Sinus Rhythm (with vpc) - EKG Sinus rhythms and dysrhythmias: sinus rhythm Ventricular dysrhythmias: ventricular premature com Myocardial infarction: septal NH (old age or ind, anterior NH (old age or i - Allied health notes Allied health notes reviewed: nursing
[2021-07-05] MEDS: PRAVASTATIN 40 MG TAB PO SCH (22:12)
[2021-07-06] MEDS: INSULIN LISPRO 100 UNIT/ML SUB-Q SCH ×4 (00:28→18:40)
[2021-07-06 07:55] LABS: Hemoglobin 9.1 gm/dl (10.1-14.3); Mean Corpuscular HGB Conc 32 % (30-34); Mean Corpuscular Volume 95 fl (79-97); Platelet Count 349 K/mm3 (140-440); Red Blood Count 3.04 M/mm3 (3.65-5.03); Red Cell Distribution Width 13.9 % (13.2-15.2)
--- NOTE | 2021-07-06 09:44 | Progress Note ---
Assessment and Plan Assessment and plan: --Acute hypercapnic respiratory failure -Currently on nasal cannula at 5 L/min will wean as tolerated -if unable to wean, will need home O2 walk test prior to d/c -keep SpO2 >92% -BiPAP at night -likely 2/2 to CAP --Atrial fibrillation -continue metoprolol and eliquis -Cardiology following, assistance appreciated --Hypertension -controlled -continue lisinopril 10mg qday --Type 2 diabetes -controlled, glucose 155-200 -continue SSI Resolved problems --Severe hyponatremia- resolved ---Acute metabolic encephalopathy- likely 2/2 hyponatremia ---Urinary tract infection --Community-acquired pneumonia-s/p abx Disposition Plan: Continue medical management Continue to wean from BiPAP Home O2 evaluation, home BiPAP at discharge History Interval history: I have seen and examined the patient at the bedside Chart and medications reviewed No new events reported by the nursing Vital signs noted Patient in acute respiratory failure requiring continuous BiPAP at night and during daytime as needed COVID-19 test is negative Hospitalist Physical - Constitutional Vitals: Temp Pulse Resp BP Pulse Ox 99.0 F 103 H 16 126/55 91 07/06/21 07:44 07/06/21 07:44 07/06/21 07:44 07/06/21 07:44 07/06/21 07:44 General appearance: Present: no acute distress, well-nourished, obese (Morbidly) - EENT Eyes: Present: PERRL, EOM intact - Neck Neck: Present: supple, normal ROM - Respiratory Respiratory effort: normal Respiratory: bilateral: diminished, rhonchi, negative: rales, wheezing - Cardiovascular Rhythm: regular Heart Sounds: Present: S1 & S2 - Extremities Extremities: no ischemia, No edema - Abdominal General gastrointestinal: soft, non-tender, non-distended, normal bowel sounds - Integumentary Integumentary: Present: clear, warm - Psychiatric Psychiatric: appropriate mood/affect, cooperative - Neurologic Neurologic: CNII-XII intact, moves all extremities HEART Score - HEART Score Troponin: Troponin T < 0.010 ng/mL (0.00-0.029) 06/22/21 07:58 Results - Labs CBC & Chem 7: 07/06/21 07:04 07/05/21 07:55 Labs: Laboratory Last Values WBC 9.6 K/mm3 (4.5-11.0) 07/06/21 07:04 RBC 3.04 M/mm3 (3.65-5.03) L 07/06/21 07:04 Hgb 9.1 gm/dl (10.1-14.3) L 07/06/21 07:04 Hct 29.0 % (30.3-42.9) L 07/06/21 07:04 MCV 95 fl (79-97) 07/06/21 07:04 MCH 30 pg (28-32) 07/06/21 07:04 MCHC 32 % (30-34) 07/06/21 07:04 RDW 13.9 % (13.2-15.2) 07/06/21 07:04 Plt Count 349 K/mm3 (140-440) 07/06/21 07:04 Lymph % (Auto) 8.6 % (13.4-35.0) L 06/30/21 04:20 Bond % (Auto) 8.3 % (0.0-7.3) H 06/30/21 04:20 Eos % (Auto) 0.5 % (0.0-4.3) 06/30/21 04:20 Baso % (Auto) 0.0 % (0.0-1.8) 06/30/21 04:20 Lymph # (Auto) 1.0 K/mm3 (1.2-5.4) L 06/30/21 04:20 Bond # (Auto) 1.0 K/mm3 (0.0-0.8) H 06/30/21 04:20 Eos # (Auto) 0.1 K/mm3 (0.0-0.4) 06/30/21 04:20 Baso # (Auto) 0.0 K/mm3 (0.0-0.1) 06/30/21 04:20 Add Manual Diff Complete 06/25/21 22:55 Total Counted 100 06/25/21 22:55 Seg Neutrophils % 82.6 % (40.0-70.0) H 06/30/21 04:20 Seg Neuts % (Manual) 91.0 % (40.0-70.0) H 06/25/21 22:55 Lymphocytes % (Manual) 6.0 % (13.4-35.0) L 06/25/21 22:55 Monocytes % (Manual) 3.0 % (0.0-7.3) 06/25/21 22:55 Metamyelocytes % 1.0 % 06/24/21 05:33 Nucleated RBC % Not Reportable 06/25/21 22:55 Seg Neutrophils # 9.8 K/mm3 (1.8-7.7) H 06/30/21 04:20 Seg Neutrophils # Man 13.5 K/mm3 (1.8-7.7) H 06/25/21 22:55 Band Neutrophils # 0.0 K/mm3 06/25/21 22:55 Lymphocytes # (Manual) 0.9 K/mm3 (1.2-5.4) L 06/25/21 22:55 Abs React Lymphs (Man) 0.0 K/mm3 06/25/21 22:55 Monocytes # (Manual) 0.4 K/mm3 (0.0-0.8) 06/25/21 22:55 Eosinophils # (Manual) 0.0 K/mm3 (0.0-0.4) 06/25/21 22:55 Basophils # (Manual) 0.0 K/mm3 (0.0-0.1) 06/25/21 22:55 Metamyelocytes # 0.0 K/mm3 06/25/21 22:55 Myelocytes # 0.0 K/mm3 06/25/21 22:55 Promyelocytes # 0.0 K/mm3 06/25/21 22:55 Blast Cells # 0.0 K/mm3 06/25/21 22:55 WBC Morphology Not Reportable 06/25/21 22:55 Hypersegmented Neuts Not Reportable 06/25/21 22:55 Hyposegmented Neuts Not Reportable 06/25/21 22:55 Hypogranular Neuts Not Reportable 06/25/21 22:55 Smudge Cells Not Reportable 06/25/21 22:55 Toxic Granulation Not Reportable 06/25/21 22:55 Toxic Vacuolation Not Reportable 06/25/21 22:55 Dohle Bodies Not Reportable 06/25/21 22:55 Pelger-Huet Anomaly Not Reportable 06/25/21 22:55 Otf Rods Not Reportable 06/25/21 22:55 Platelet Estimate Consistent w auto 06/25/21 22:55 Clumped Platelets Not Reportable 06/25/21 22:55 Plt Clumps, EDTA Not Reportable 06/25/21 22:55 Large Platelets Not Reportable 06/25/21 22:55 Giant Platelets Not Reportable 06/25/21 22:55 Platelet Satelliting Not Reportable 06/25/21 22:55 Plt Morphology Comment Not Reportable 06/25/21 22:55 RBC Morphology Normal 06/25/21 22:55 Dimorphic RBCs Not Reportable 06/25/21 22:55 Polychromasia Not Reportable 06/25/21 22:55 Hypochromasia Not Reportable 06/25/21 22:55 Poikilocytosis Not Reportable 06/25/21 22:55 Anisocytosis Not Reportable 06/25/21 22:55 Microcytosis Not Reportable 06/25/21 22:55 Macrocytosis Not Reportable 06/25/21 22:55 Spherocytes Not Reportable 06/25/21 22:55 Pappenheimer Bodies Not Reportable 06/25/21 22:55 Sickle Cells Not Reportable 06/25/21 22:55 Target Cells Not Reportable 06/25/21 22:55 Tear Drop Cells Not Reportable 06/25/21 22:55 Ovalocytes Not Reportable 06/25/21 22:55 Helmet Cells Not Reportable 06/25/21 22:55 Bridges-Marissa Bodies Not Reportable 06/25/21 22:55 [place] Rings Not Reportable 06/25/21 22:55 William Cells Not Reportable 06/25/21 22:55 Bite Cells Not Reportable 06/25/21 22:55 Crenated Cell Not Reportable 06/25/21 22:55 Elliptocytes Not Reportable 06/25/21 22:55 Acanthocytes (Spur) Not Reportable 06/25/21 22:55 Rouleaux Not Reportable 06/25/21 22:55 Hemoglobin C Crystals Not Reportable 06/25/21 22:55 Schistocytes Not Reportable 06/25/21 22:55 Malaria parasites Not Reportable 06/25/21 22:55 Steve Bodies Not Reportable 06/25/21 22:55 Hem Pathologist Commnt No 06/25/21 22:55 PT 13.0 Sec. (12.2-14.9) 07/02/21 05:30 INR 0.88 (0.87-1.13) 07/02/21 05:30 APTT TNR 07/02/21 05:30 Thrombin Time 15.9 Sec. (15.1-19.6) 06/22/21 07:58 D-Dimer 390 ng/mlDDU (0-234) H 06/22/21 08:56 Heparin Anti-Xa Level 1.90 U.I./ml (0.3-0.7) H 07/03/21 04:09 ABG pH 7.480 (7.320-7.450) H 06/27/21 05:06 POC ABG pCO2 38.0 mmHg (32.0-48.0) 06/27/21 05:06 ABG pCO2 35.8 mm Hg 06/26/21 10:00 POC ABG pO2 93.6 mmHg (83-108) 06/27/21 05:06 ABG pO2 125.4 mm Hg (80.0-90.0) H 06/26/21 10:00 POC ABG HCO3 27.7 06/27/21 05:06 ABG HCO3 25.3 mmol/L (20.0-26.0) 06/26/21 10:00 ABG O2 Saturation 98.0 (0-100) 06/27/21 05:06 ABG O2 Content 17.1 (0.0-44) 06/26/21 10:00 POC ABG Base Excess 4.0 06/27/21 05:06 ABG Base Excess 1.9 mmol/L (-2.0-3.0) 06/26/21 10:00 ABG Hemoglobin 11.9 (12.0-17.5) L 06/27/21 05:06 ABG Oxyhemoglobin 96.8 (94-98) 06/27/21 05:06 ABG Carboxyhemoglobin 1.1 % (0.0-5.0) 06/26/21 10:00 ABG Methemoglobin 0.3 (0.0-1.5) 06/27/21 05:06 ABG Sodium 123.5 mmol/L (136.0-145.0) L 06/27/21 05:06 ABG Potassium 3.7 mmol/L (3.40-4.50) 06/27/21 05:06 ABG Chloride 91.0 mmol/L (98-107) L 06/27/21 05:06 ABG Glucose 328 mg/dL (65-95) H 06/27/21 05:06 Oxyhemoglobin 97.0 % (95.0-99.0) 06/26/21 10:00 Carboxyhemoglobin 0.9 (0.5-1.5) 06/27/21 05:06 FiO2 50 % 06/26/21 10:00 FiO2 % 40.0 06/27/21 05:06 Sodium 140 mmol/L (137-145) 07/04/21 05:26 Potassium 3.8 mmol/L (3.6-5.0) 07/04/21 05:26 Chloride 98.8 mmol/L (98-107) 07/04/21 05:26 Carbon Dioxide 36 mmol/L (22-30) H 07/04/21 05:26 Anion Gap 9 mmol/L 07/04/21 05:26 BUN 35 mg/dL (7-17) H 07/04/21 05:26 Creatinine 0.6 mg/dL (0.6-1.2) 07/05/21 07:55 Estimated GFR > 60 ml/min 07/05/21 07:55 BUN/Creatinine Ratio 70 % 07/04/21 05:26 Glucose 149 mg/dL (65-100) H 07/04/21 05:26 POC Glucose 235 mg/dL (70-105) H 07/06/21 06:15 Hemoglobin A1c 6.6 % (4-6) H 06/23/21 05:29 Osmolality 240 Mosm/kg 06/22/21 23:24 Lactic Acid 1.60 mmol/L (0.7-2.0) 06/25/21 22:55 Uric Acid 3.2 mg/dL (3.5-7.6) L 06/23/21 05:29 Calcium 10.0 mg/dL (8.4-10.2) 07/04/21 05:26 Phosphorus 3.10 mg/dL (2.5-4.5) 07/02/21 05:23 Magnesium 1.80 mg/dL (1.7-2.3) 07/02/21 05:23 Ferritin 102.1 ng/mL (10.0-200.0) 06/22/21 08:56 Total Bilirubin 0.30 mg/dL (0.1-1.2) 06/29/21 05:13 Direct Bilirubin < 0.2 mg/dL (0-0.2) 06/26/21 04:32 Indirect Bilirubin 0.1 mg/dL 06/26/21 04:32 AST 12 units/L (5-40) 06/29/21 05:13 ALT 9 units/L (7-56) 06/29/21 05:13 Alkaline Phosphatase 31 units/L (35-129) L 06/29/21 05:13 Lactate Dehydrogenase 220 units/L (91-180) H 06/22/21 08:56 Troponin T < 0.010 ng/mL (0.00-0.029) 06/22/21 07:58 C-Reactive Protein 5.40 mg/dL (0.00-1.30) H 06/22/21 08:56 Total Protein 3.3 g/dL (6.3-8.2) L D 06/29/21 05:13 Albumin 1.9 g/dL (3.9-5) L 06/29/21 05:13 Albumin/Globulin Ratio 1.4 % 06/29/21 05:13 Procalcitonin < 0.05 ng/mL (<0.15) 06/22/21 08:56 TSH 1.070 mlU/mL (0.270-4.200) 06/22/21 07:58 Total Cortisol 36.4 mcg/dL () 06/26/21 16:06 Arterial Blood Glucose 328 mg/dL (65-95) H 06/27/21 05:06 Arterial Blood Ionized Calcium 4.9 mg/dL (4.6-5.3) 06/27/21 05:06 Urine Color Yellow (Yellow) 06/26/21 09:48 Urine Turbidity Slightly-cloudy (Clear) 06/26/21 09:48 Urine pH 6.0 (5.0-7.0) 06/26/21 09:48 Ur Specific [place] 1.014 (1.003-1.030) 06/26/21 09:48 Urine Protein 30 mg/dl mg/dL (Negative) 06/26/21 09:48 Urine Glucose (UA) 50 mg/dL (Negative) 06/26/21 09:48 Urine Ketones 20 mg/dL (Negative) 06/26/21 09:48 Urine Blood Mod (Negative) 06/26/21 09:48 Urine Nitrite Neg (Negative) 06/26/21 09:48 Urine Bilirubin Neg (Negative) 06/26/21 09:48 Urine Urobilinogen < 2.0 mg/dL (<2.0) 06/26/21 09:48 Ur Leukocyte Esterase Mod (Negative) 06/26/21 09:48 Urine WBC (Auto) 69.0 /HPF (0.0-6.0) H 06/26/21 09:48 Urine RBC (Auto) 29.0 /HPF (0.0-6.0) 06/26/21 09:48 U Epithel Cells (Auto) 1.0 /HPF (0-13.0) 06/26/21 09:48 Urine Bacteria (Auto) 4+ /HPF (Negative) 06/26/21 09:48 Ur Transition Epith Cell 1 /HPF 06/22/21 11:47 Hyaline Casts 5 /LPF 06/22/21 11:47 Urine Mucus Few /HPF 06/26/21 09:48 Urine Yeast (Budding) 3+ /HPF 06/26/21 09:48 Urine Osmolality 571 Mosm/kg 06/22/21 11:47 Urine Sodium 25 mmol/L 06/22/21 11:47 Coronavirus (PCR) Negative (Negative) 06/22/21 Unknown Martines/IV: Voiding Method External Female Catheter Active Medications - Current Medications Current Medications: Generic Name Dose Route Start Last Admin Trade Name Freq PRN Reason Stop Dose Admin Acetaminophen 650 mg 06/22/21 22:21 07/04/21 10:22 Acetaminophen 325 Mg Tab PO 650 mg Q4H PRN Administration Pain MILD(1-3)/Fever >100.5/NAVA Lipase/Protease/Amylase 1 each 06/29/21 16:20 Lipase 10,500/Protease 25,000/Amylase 43,750 (Units) Dr Castellanos FEEDTUBE PRN PRN For Clogged Feeding Tube Apixaban 5 mg 07/02/21 12:00 07/05/21 22:12 Apixaban 5 Mg Tab PO 5 mg Q12HR JUDY Administration Protocol Clopidogrel Bisulfate 75 mg 06/23/21 10:00 07/05/21 09:49 Clopidogrel 75 Mg Tab PO 75 mg DAILY JUDY Administration Docusate Sodium 100 mg 06/25/21 22:00 07/05/21 22:15 Docusate Sodium 100 Mg/10 Ml Oral Liqd PO 100 mg BID JUDY Administration Famotidine 20 mg 06/29/21 22:00 07/05/21 22:12 Famotidine 20 Mg Tab FEEDTUBE 20 mg BID JUDY Administration Insulin Human Lispro 0 unit 06/26/21 12:00 07/06/21 06:44 Insulin Lispro 100 Unit/Ml SUB-Q 4 unit Q6HR JUDY Administration Protocol Lisinopril 10 mg 07/03/21 10:00 07/05/21 09:49 Lisinopril 10 Mg Tab PO 10 mg QDAY JUDY Administration Metoclopramide HCl 10 mg 06/22/21 22:21 Metoclopramide 10 Mg/2 Ml Inj IV Q6H PRN Nausea And Vomiting Metoprolol Tartrate 100 mg 07/03/21 10:00 07/05/21 22:50 Metoprolol Tartrate 100 Mg Tab PO 100 mg BID JUDY Administration Ondansetron HCl 4 mg 06/22/21 22:21 Ondansetron 4 Mg/2 Ml Inj IV Q8H PRN Nausea And Vomiting Pravastatin Sodium 40 mg 06/23/21 22:00 07/05/21 22:12 Pravastatin 40 Mg Tab PO 40 mg QHS JUDY Administration Simple Syrup 15 ml 06/29/21 16:20 Simple Syrup 15 Ml FEEDTUBE PRN PRN Hypoglycemia Simple Syrup 30 ml 06/29/21 16:20 Simple Syrup 15 Ml FEEDTUBE PRN PRN Hypoglycemia Sodium Bicarbonate 325 mg 06/29/21 16:20 Sodium Bicarbonate 325 Mg Tab FEEDTUBE PRN PRN For Clogged Feeding Tube Sodium Chloride 10 ml 06/23/21 10:00 07/05/21 22:12 Sodium Chloride 0.9% 10 Ml Flush Syringe IV 10 ml BID JUDY Administration Sodium Chloride 10 ml 06/22/21 22:21 Sodium Chloride 0.9% 10 Ml Flush Syringe IV PRN PRN LINE FLUSH Nutrition/Malnutrition Assess - Dietary Evaluation Nutrition/Malnutrition Findings: Nutrition Notes Start: 06/26/21 11:01 Freq: Status: Active Protocol: Document 07/01/21 18:17 VINCENZO (Rec: 07/01/21 18:27 VINCENZO [id number]) Nutrition Notes Initial or Follow up Brief Note Current Diet TF-Vital High Protein @ 50 ml/ hr (since D 06/29). Height 5 ft 5 in Weight 86.183 kg [place] Body Weight (kg) 56.81 BMI 31.6 Weight change and time frame No body weight change reported . Weight Status Obese Subjective/Other Information RD consult for routine F/U on Dietary advancement or TF resume. TF continuation, new formula without changes, thus, well tolerated. Percent of energy/protein needs met: Prescribed Vital High Protein @ 50 ml/hr provides for energy /protein needs (1,200 Kcal/105 g) during LOS. #1 Nutrition Diagnosis Inadequate oral intake Diagnosis Progress(for reassessment Continues documentation) Nutrition Intervention Nutrition Support: Continue Vital High Protein @ 50 ml/hr. Flush: 50 ml water Q 4 hr. Goal #1 Provide at least 75% of energy /protein needs through Enteral Feeding during LOS. Follow-Up By: 07/08/21 Additional Comments Continue monitoring TF tolerance and BM.
[2021-07-06] MEDS: METOPROLOL TARTRATE 100 MG TAB PO SCH ×2 (12:30→22:31)
[2021-07-06] MEDS: FAMOTIDINE 20 MG TAB FEEDTUBE SCH ×2 (12:30→22:30)
[2021-07-06] MEDS: APIXABAN 5 MG TAB PO SCH ×2 (12:30→22:30)
[2021-07-06] MEDS: DOCUSATE SODIUM 100 MG/10 ML ORAL LIQD PO SCH ×2 (12:35→22:30)
[2021-07-06] MEDS: CLOPIDOGREL 75 MG TAB PO SCH (12:47)
[2021-07-06] MEDS: LISINOPRIL 10 MG TAB PO SCH (12:47)
--- NOTE | 2021-07-06 13:13 | Progress Note ---
Assessment and Plan Patient is 65-year-old female with a past medical history of hypertension, diabetes, and tobacco use who is brought to the ED for complaint of weakness and altered mental status that lasted 4 days prior to admission Acute Encephalopathy Symptomatic Hyponatremia-nephrology following Acute Respiratory Failure-on Bipap PNA UTI Hypotension AF with RVR (new onset) Hypokalemia (resolved) Hypomagnesemia (resolved) H/o HTN DM2 H/o Tobacco Abuse Echo reviewed - EF 60-65%, no significant valvular abnormalities. Plan: Patient is converting between A. fib and sinus rhythm Continue Eliquis for anticoagulation Continue to metoprolol 100 mg p.o. BID and lisinopril 10 mg p.o. daily Patient seen in conjunction with Dr. Romano who agrees with this plan of care. We will continue to follow - Patient Problems (1) Atrial fibrillation with RVR Current Visit: Yes Status: Acute (2) Acute metabolic encephalopathy Current Visit: Yes Status: Acute (3) Acute hyponatremia Current Visit: Yes Status: Acute (4) Community acquired pneumonia Current Visit: Yes Status: Acute (5) Hypokalemia Current Visit: Yes Status: Acute (6) Essential (primary) hypertension Current Visit: Yes Status: Acute (7) Type 2 diabetes mellitus without complications Current Visit: Yes Status: Chronic (8) Hypomagnesemia Current Visit: Yes Status: Acute (9) UTI (urinary tract infection) Current Visit: Yes Status: Acute Qualifiers: Urinary tract infection type: acute cystitis Subjective Date of service: 07/06/21 Principal diagnosis: AF w RVR Interval history: Patient lethargic this a.m. and on BiPAP Patient patient is going in and out of A. fib and sinus rhythm. Rate trending 90s to 100s Objective Vital Signs Temp Pulse Resp BP Pulse Ox 07/06/21 10:00 93 07/06/21 09:55 93 H 27 H 93 07/06/21 07:44 99.0 F 103 H 16 126/55 91 07/06/21 05:16 97.9 F 94 H 20 116/40 97 07/06/21 01:16 27 H 07/06/21 00:00 77 07/05/21 22:00 96 07/05/21 21:05 95 07/05/21 20:32 98.2 F 101 H 19 108/47 98 07/05/21 19:00 76 07/05/21 16:03 97.6 F 102 H 24 134/57 89 - Physical Examination General: No Apparent Distress HEENT: Positive: Normocephaly, Mucus Membranes Dry Neck: Positive: neck supple, trachea midline Cardiac: Positive: Reg Rate and Rhythm Lungs: Positive: Normal Breath Sounds Neuro: Positive: Grossly Intact Abdomen: Positive: Soft Skin: Negative: Rash Musculoskeletal: No Fluid Collection Extremities: Present: lower extr. pulses, warm. Absent: edema - Labs and Meds CBC 07/06/21 Range/Units 07:04 WBC 9.6 (4.5-11.0) K/mm3 RBC 3.04 L (3.65-5.03) M/mm3 Hgb 9.1 L (10.1-14.3) gm/dl Hct 29.0 L (30.3-42.9) % Plt Count 349 (140-440) K/mm3 - Imaging and Cardiology EKG: report reviewed, image reviewed Echo: report reviewed - Telemetry EKG Rhythm: Sinus Rhythm - EKG Sinus rhythms and dysrhythmias: sinus rhythm Ventricular dysrhythmias: ventricular premature com Myocardial infarction: septal [place] (old age or ind, anterior [place] (old age or i - Allied health notes Allied health notes reviewed: nursing
[2021-07-06 16:18] LABS: ABG Base Excess 19.7 mmol/L (-2.0-3.0); ABG HCO3 46.7 mmol/L (20.0-26.0); ABG Methemoglobin 0.2 % (0.0-1.5); ABG Oxygen Saturation 95.2 % (95.0-99.0); ABG PCO2 74.5 mm Hg; ABG PH 7.415 pH Units (7.350-7.450)
[2021-07-06] MEDS: PRAVASTATIN 40 MG TAB PO SCH (22:30)
[2021-07-07] MEDS: INSULIN LISPRO 100 UNIT/ML SUB-Q SCH ×5 (00:14→23:16)
[2021-07-07] MEDS: ACETAMINOPHEN 325 MG TAB PO PRN (07:25)
[2021-07-07] MEDS: DOCUSATE SODIUM 100 MG/10 ML ORAL LIQD PO SCH ×2 (09:02→21:27)
[2021-07-07] MEDS: LISINOPRIL 10 MG TAB PO SCH (09:02)
[2021-07-07] MEDS: CLOPIDOGREL 75 MG TAB PO SCH (09:03)
[2021-07-07] MEDS: METOPROLOL TARTRATE 100 MG TAB PO SCH ×2 (09:03→21:27)
[2021-07-07] MEDS: APIXABAN 5 MG TAB PO SCH ×2 (09:03→21:27)
[2021-07-07] MEDS: FAMOTIDINE 20 MG TAB FEEDTUBE SCH ×2 (09:03→21:28)
--- NOTE | 2021-07-07 09:41 | Progress Note ---
Assessment and Plan Assessment and plan: --Acute hypercapnic respiratory failure/nasal cannula oxygen/intermittent BiPAP -Currently on nasal cannula at 5 L/min will wean as tolerated -if unable to wean, will need home O2 walk test prior to d/c -keep SpO2 >92%, -BiPAP at night -likely 2/2 to CAP Wean as tolerated Home O2 evaluation Home BiPAP evaluation --Atrial fibrillation rate controlled -continue metoprolol and eliquis -Cardiology following, Continue current management --Hypertension/well-controlled Continue current antihypertensives As needed medications --Type 2 diabetes Accu-Chek sliding scale coverage ADA diet Long-acting insulin as needed Resolved problems --Severe hyponatremia- resolved ---Acute metabolic encephalopathy- likely 2/2 hyponatremia ---Urinary tract infection --Community-acquired pneumonia-s/p abx Disposition Plan: Continue medical management Continue to wean from BiPAP Home O2 evaluation, home BiPAP at discharge We'll closely monitor the patient and adjust management as needed Plan of care reviewed with the patient and her nurse Also discussed the DC planning with case management group History Interval history: I have seen and examined the patient at the bedside Patient's chart and medications reviewed No new events reported by the nursing staff Patient continues to be on continuous BiPAP at nights and intermittent during daytime Noncommunicative, morbidly obese Hospitalist Physical - Constitutional Vitals: Temp Pulse Resp BP Pulse Ox 98.0 F 92 H 20 147/69 90 07/07/21 08:19 07/07/21 03:25 07/07/21 08:19 07/07/21 08:19 07/07/21 03:25 General appearance: Present: no acute distress, well-nourished, obese (Morbidly) - EENT Eyes: Present: PERRL, EOM intact - Neck Neck: Present: supple, normal ROM - Respiratory Respiratory effort: normal Respiratory: bilateral: diminished, rhonchi, negative: rales, wheezing - Cardiovascular Rhythm: regular Heart Sounds: Present: S1 & S2 - Extremities Extremities: no ischemia, No edema - Abdominal General gastrointestinal: soft, non-tender, non-distended, normal bowel sounds - Integumentary Integumentary: Present: clear, warm - Psychiatric Psychiatric: appropriate mood/affect, cooperative - Neurologic Neurologic: CNII-XII intact, moves all extremities HEART Score - HEART Score Troponin: Troponin T < 0.010 ng/mL (0.00-0.029) 06/22/21 07:58 Results - Labs CBC & Chem 7: 07/06/21 07:04 07/07/21 14:44 Labs: Laboratory Last Values WBC 9.6 K/mm3 (4.5-11.0) 07/06/21 07:04 RBC 3.04 M/mm3 (3.65-5.03) L 07/06/21 07:04 Hgb 9.1 gm/dl (10.1-14.3) L 07/06/21 07:04 Hct 29.0 % (30.3-42.9) L 07/06/21 07:04 MCV 95 fl (79-97) 07/06/21 07:04 MCH 30 pg (28-32) 07/06/21 07:04 MCHC 32 % (30-34) 07/06/21 07:04 RDW 13.9 % (13.2-15.2) 07/06/21 07:04 Plt Count 349 K/mm3 (140-440) 07/06/21 07:04 Lymph % (Auto) 8.6 % (13.4-35.0) L 06/30/21 04:20 [place] % (Auto) 8.3 % (0.0-7.3) H 06/30/21 04:20 Eos % (Auto) 0.5 % (0.0-4.3) 06/30/21 04:20 Baso % (Auto) 0.0 % (0.0-1.8) 06/30/21 04:20 Lymph # (Auto) 1.0 K/mm3 (1.2-5.4) L 06/30/21 04:20 [place] # (Auto) 1.0 K/mm3 (0.0-0.8) H 06/30/21 04:20 Eos # (Auto) 0.1 K/mm3 (0.0-0.4) 06/30/21 04:20 Baso # (Auto) 0.0 K/mm3 (0.0-0.1) 06/30/21 04:20 Add Manual Diff Complete 06/25/21 22:55 Total Counted 100 06/25/21 22:55 Seg Neutrophils % 82.6 % (40.0-70.0) H 06/30/21 04:20 Seg Neuts % (Manual) 91.0 % (40.0-70.0) H 06/25/21 22:55 Lymphocytes % (Manual) 6.0 % (13.4-35.0) L 06/25/21 22:55 Monocytes % (Manual) 3.0 % (0.0-7.3) 06/25/21 22:55 Metamyelocytes % 1.0 % 06/24/21 05:33 Nucleated RBC % Not Reportable 06/25/21 22:55 Seg Neutrophils # 9.8 K/mm3 (1.8-7.7) H 06/30/21 04:20 Seg Neutrophils # Man 13.5 K/mm3 (1.8-7.7) H 06/25/21 22:55 Band Neutrophils # 0.0 K/mm3 06/25/21 22:55 Lymphocytes # (Manual) 0.9 K/mm3 (1.2-5.4) L 06/25/21 22:55 Abs React Lymphs (Man) 0.0 K/mm3 06/25/21 22:55 Monocytes # (Manual) 0.4 K/mm3 (0.0-0.8) 06/25/21 22:55 Eosinophils # (Manual) 0.0 K/mm3 (0.0-0.4) 06/25/21 22:55 Basophils # (Manual) 0.0 K/mm3 (0.0-0.1) 06/25/21 22:55 Metamyelocytes # 0.0 K/mm3 06/25/21 22:55 Myelocytes # 0.0 K/mm3 06/25/21 22:55 Promyelocytes # 0.0 K/mm3 06/25/21 22:55 Blast Cells # 0.0 K/mm3 06/25/21 22:55 WBC Morphology Not Reportable 06/25/21 22:55 Hypersegmented Neuts Not Reportable 06/25/21 22:55 Hyposegmented Neuts Not Reportable 06/25/21 22:55 Hypogranular Neuts Not Reportable 06/25/21 22:55 Smudge Cells Not Reportable 06/25/21 22:55 Toxic Granulation Not Reportable 06/25/21 22:55 Toxic Vacuolation Not Reportable 06/25/21 22:55 Dohle Bodies Not Reportable 06/25/21 22:55 Pelger-Huet Anomaly Not Reportable 06/25/21 22:55 Otf Rods Not Reportable 06/25/21 22:55 Platelet Estimate Consistent w auto 06/25/21 22:55 Clumped Platelets Not Reportable 06/25/21 22:55 Plt Clumps, EDTA Not Reportable 06/25/21 22:55 Large Platelets Not Reportable 06/25/21 22:55 Giant Platelets Not Reportable 06/25/21 22:55 Platelet Satelliting Not Reportable 06/25/21 22:55 Plt Morphology Comment Not Reportable 06/25/21 22:55 RBC Morphology Normal 06/25/21 22:55 Dimorphic RBCs Not Reportable 06/25/21 22:55 Polychromasia Not Reportable 06/25/21 22:55 Hypochromasia Not Reportable 06/25/21 22:55 Poikilocytosis Not Reportable 06/25/21 22:55 Anisocytosis Not Reportable 06/25/21 22:55 Microcytosis Not Reportable 06/25/21 22:55 Macrocytosis Not Reportable 06/25/21 22:55 Spherocytes Not Reportable 06/25/21 22:55 Pappenheimer Bodies Not Reportable 06/25/21 22:55 Sickle Cells Not Reportable 06/25/21 22:55 Target Cells Not Reportable 06/25/21 22:55 Tear Drop Cells Not Reportable 06/25/21 22:55 Ovalocytes Not Reportable 06/25/21 22:55 Helmet Cells Not Reportable 06/25/21 22:55 [place] Bodies Not Reportable 06/25/21 22:55 [place] Rings Not Reportable 06/25/21 22:55 [place] Cells Not Reportable 06/25/21 22:55 Bite Cells Not Reportable 06/25/21 22:55 Crenated Cell Not Reportable 06/25/21 22:55 Elliptocytes Not Reportable 06/25/21 22:55 Acanthocytes (Spur) Not Reportable 06/25/21 22:55 Rouleaux Not Reportable 06/25/21 22:55 Hemoglobin C Crystals Not Reportable 06/25/21 22:55 Schistocytes Not Reportable 06/25/21 22:55 Malaria parasites Not Reportable 06/25/21 22:55 Steve Bodies Not Reportable 06/25/21 22:55 Hem Pathologist Commnt No 06/25/21 22:55 PT 13.0 Sec. (12.2-14.9) 07/02/21 05:30 INR 0.88 (0.87-1.13) 07/02/21 05:30 APTT TNR 07/02/21 05:30 Thrombin Time 15.9 Sec. (15.1-19.6) 06/22/21 07:58 D-Dimer 390 ng/mlDDU (0-234) H 06/22/21 08:56 Heparin Anti-Xa Level 1.90 U.I./ml (0.3-0.7) H 07/03/21 04:09 ABG pH 7.415 pH Units (7.350-7.450) 07/06/21 16:00 POC ABG pCO2 38.0 mmHg (32.0-48.0) 06/27/21 05:06 ABG pCO2 74.5 mm Hg 07/06/21 16:00 POC ABG pO2 93.6 mmHg (83-108) 06/27/21 05:06 ABG pO2 69.0 mm Hg (80.0-90.0) L 07/06/21 16:00 POC ABG HCO3 27.7 06/27/21 05:06 ABG HCO3 46.7 mmol/L (20.0-26.0) H 07/06/21 16:00 ABG O2 Saturation 95.2 % (95.0-99.0) 07/06/21 16:00 ABG O2 Content 10.8 (0.0-44) 07/06/21 16:00 POC ABG Base Excess 4.0 06/27/21 05:06 ABG Base Excess 19.7 mmol/L (-2.0-3.0) H 07/06/21 16:00 ABG Hemoglobin 8.1 gm/dl (12.0-16.0) L 07/06/21 16:00 ABG Oxyhemoglobin 96.8 (94-98) 06/27/21 05:06 ABG Carboxyhemoglobin 1.7 % (0.0-5.0) 07/06/21 16:00 ABG Methemoglobin 0.2 % (0.0-1.5) 07/06/21 16:00 ABG Sodium 123.5 mmol/L (136.0-145.0) L 06/27/21 05:06 ABG Potassium 3.7 mmol/L (3.40-4.50) 06/27/21 05:06 ABG Chloride 91.0 mmol/L (98-107) L 06/27/21 05:06 ABG Glucose 328 mg/dL (65-95) H 06/27/21 05:06 Oxyhemoglobin 93.4 % (95.0-99.0) L 07/06/21 16:00 Carboxyhemoglobin 0.9 (0.5-1.5) 06/27/21 05:06 FiO2 40 % 07/06/21 16:00 FiO2 % 40.0 06/27/21 05:06 Sodium 140 mmol/L (137-145) 07/04/21 05:26 Potassium 3.8 mmol/L (3.6-5.0) 07/04/21 05:26 Chloride 98.8 mmol/L (98-107) 07/04/21 05:26 Carbon Dioxide 36 mmol/L (22-30) H 07/04/21 05:26 Anion Gap 9 mmol/L 07/04/21 05:26 BUN 35 mg/dL (7-17) H 07/04/21 05:26 Creatinine 0.6 mg/dL (0.6-1.2) 07/05/21 07:55 Estimated GFR > 60 ml/min 07/05/21 07:55 BUN/Creatinine Ratio 70 % 07/04/21 05:26 Glucose 149 mg/dL (65-100) H 07/04/21 05:26 POC Glucose 224 mg/dL (70-105) H 07/06/21 23:19 Hemoglobin A1c 6.6 % (4-6) H 06/23/21 05:29 Osmolality 240 Mosm/kg 06/22/21 23:24 Lactic Acid 1.60 mmol/L (0.7-2.0) 06/25/21 22:55 Uric Acid 3.2 mg/dL (3.5-7.6) L 06/23/21 05:29 Calcium 10.0 mg/dL (8.4-10.2) 07/04/21 05:26 Phosphorus 3.10 mg/dL (2.5-4.5) 07/02/21 05:23 Magnesium 1.80 mg/dL (1.7-2.3) 07/02/21 05:23 Ferritin 102.1 ng/mL (10.0-200.0) 06/22/21 08:56 Total Bilirubin 0.30 mg/dL (0.1-1.2) 06/29/21 05:13 Direct Bilirubin < 0.2 mg/dL (0-0.2) 06/26/21 04:32 Indirect Bilirubin 0.1 mg/dL 06/26/21 04:32 AST 12 units/L (5-40) 06/29/21 05:13 ALT 9 units/L (7-56) 06/29/21 05:13 Alkaline Phosphatase 31 units/L (35-129) L 06/29/21 05:13 Lactate Dehydrogenase 220 units/L (91-180) H 06/22/21 08:56 Troponin T < 0.010 ng/mL (0.00-0.029) 06/22/21 07:58 C-Reactive Protein 5.40 mg/dL (0.00-1.30) H 06/22/21 08:56 Total Protein 3.3 g/dL (6.3-8.2) L D 06/29/21 05:13 Albumin 1.9 g/dL (3.9-5) L 06/29/21 05:13 Albumin/Globulin Ratio 1.4 % 06/29/21 05:13 Procalcitonin < 0.05 ng/mL (<0.15) 06/22/21 08:56 TSH 1.070 mlU/mL (0.270-4.200) 06/22/21 07:58 Total Cortisol 36.4 mcg/dL () 06/26/21 16:06 Arterial Blood Glucose 328 mg/dL (65-95) H 06/27/21 05:06 Arterial Blood Ionized Calcium 4.9 mg/dL (4.6-5.3) 06/27/21 05:06 Urine Color Yellow (Yellow) 06/26/21 09:48 Urine Turbidity Slightly-cloudy (Clear) 06/26/21 09:48 Urine pH 6.0 (5.0-7.0) 06/26/21 09:48 Ur Specific [place] 1.014 (1.003-1.030) 06/26/21 09:48 Urine Protein 30 mg/dl mg/dL (Negative) 06/26/21 09:48 Urine Glucose (UA) 50 mg/dL (Negative) 06/26/21 09:48 Urine Ketones 20 mg/dL (Negative) 06/26/21 09:48 Urine Blood Mod (Negative) 06/26/21 09:48 Urine Nitrite Neg (Negative) 06/26/21 09:48 Urine Bilirubin Neg (Negative) 06/26/21 09:48 Urine Urobilinogen < 2.0 mg/dL (<2.0) 06/26/21 09:48 Ur Leukocyte Esterase Mod (Negative) 06/26/21 09:48 Urine WBC (Auto) 69.0 /HPF (0.0-6.0) H 06/26/21 09:48 Urine RBC (Auto) 29.0 /HPF (0.0-6.0) 06/26/21 09:48 U Epithel Cells (Auto) 1.0 /HPF (0-13.0) 06/26/21 09:48 Urine Bacteria (Auto) 4+ /HPF (Negative) 06/26/21 09:48 Ur Transition Epith Cell 1 /HPF 06/22/21 11:47 Hyaline Casts 5 /LPF 06/22/21 11:47 Urine Mucus Few /HPF 06/26/21 09:48 Urine Yeast (Budding) 3+ /HPF 06/26/21 09:48 Urine Osmolality 571 Mosm/kg 06/22/21 11:47 Urine Sodium 25 mmol/L 06/22/21 11:47 Coronavirus (PCR) Negative (Negative) 06/22/21 Unknown Martines/IV: Voiding Method External Female Catheter Active Medications - Current Medications Current Medications: Generic Name Dose Route Start Last Admin Trade Name Freq PRN Reason Stop Dose Admin Acetaminophen 650 mg 06/22/21 22:21 07/07/21 07:25 Acetaminophen 325 Mg Tab PO 650 mg Q4H PRN Administration Pain MILD(1-3)/Fever >100.5/NAVA Lipase/Protease/Amylase 1 each 06/29/21 16:20 Lipase 10,500/Protease 25,000/Amylase 43,750 (Units) Dr Castellanos FEEDTUBE PRN PRN For Clogged Feeding Tube Apixaban 5 mg 07/02/21 12:00 07/07/21 09:03 Apixaban 5 Mg Tab PO 5 mg Q12HR JUDY Administration Protocol Clopidogrel Bisulfate 75 mg 06/23/21 10:00 07/07/21 09:03 Clopidogrel 75 Mg Tab PO 75 mg DAILY JUDY Administration Docusate Sodium 100 mg 06/25/21 22:00 07/07/21 09:02 Docusate Sodium 100 Mg/10 Ml Oral Liqd PO 100 mg BID JUDY Administration Famotidine 20 mg 06/29/21 22:00 07/07/21 09:03 Famotidine 20 Mg Tab FEEDTUBE 20 mg BID JUDY Administration Insulin Human Lispro 0 unit 06/26/21 12:00 07/07/21 07:25 Insulin Lispro 100 Unit/Ml SUB-Q 3 unit Q6HR JUDY Administration Protocol Lisinopril 10 mg 07/03/21 10:00 07/07/21 09:02 Lisinopril 10 Mg Tab PO 10 mg QDAY JUDY Administration Metoclopramide HCl 10 mg 06/22/21 22:21 Metoclopramide 10 Mg/2 Ml Inj IV Q6H PRN Nausea And Vomiting Metoprolol Tartrate 100 mg 07/03/21 10:00 07/07/21 09:03 Metoprolol Tartrate 100 Mg Tab PO 100 mg BID JUDY Administration Ondansetron HCl 4 mg 06/22/21 22:21 Ondansetron 4 Mg/2 Ml Inj IV Q8H PRN Nausea And Vomiting Pravastatin Sodium 40 mg 06/23/21 22:00 07/06/21 22:30 Pravastatin 40 Mg Tab PO 40 mg QHS JUDY Administration Simple Syrup 15 ml 06/29/21 16:20 Simple Syrup 15 Ml FEEDTUBE PRN PRN Hypoglycemia Simple Syrup 30 ml 06/29/21 16:20 Simple Syrup 15 Ml FEEDTUBE PRN PRN Hypoglycemia Sodium Bicarbonate 325 mg 06/29/21 16:20 Sodium Bicarbonate 325 Mg Tab FEEDTUBE PRN PRN For Clogged Feeding Tube Sodium Chloride 10 ml 06/23/21 10:00 07/07/21 09:03 Sodium Chloride 0.9% 10 Ml Flush Syringe IV 10 ml BID JUDY Administration Sodium Chloride 10 ml 06/22/21 22:21 Sodium Chloride 0.9% 10 Ml Flush Syringe IV PRN PRN LINE FLUSH Nutrition/Malnutrition Assess - Dietary Evaluation Nutrition/Malnutrition Findings: Nutrition Notes Start: 06/26/21 11:01 Freq: Status: Active Protocol: Document 07/01/21 18:17 VINCENZO (Rec: 07/01/21 18:27 VINCENZO [id number]) Nutrition Notes Initial or Follow up Brief Note Current Diet TF-Vital High Protein @ 50 ml/ hr (since D 06/29). Height 5 ft 5 in Weight 86.183 kg [place] Body Weight (kg) 56.81 BMI 31.6 Weight change and time frame No body weight change reported . Weight Status Obese Subjective/Other Information RD consult for routine F/U on Dietary advancement or TF resume. TF continuation, new formula without changes, thus, well tolerated. Percent of energy/protein needs met: Prescribed Vital High Protein @ 50 ml/hr provides for energy /protein needs (1,200 Kcal/105 g) during LOS. #1 Nutrition Diagnosis Inadequate oral intake Diagnosis Progress(for reassessment Continues documentation) Nutrition Intervention Nutrition Support: Continue Vital High Protein @ 50 ml/hr. Flush: 50 ml water Q 4 hr. Goal #1 Provide at least 75% of energy /protein needs through Enteral Feeding during LOS. Follow-Up By: 07/08/21 Additional Comments Continue monitoring TF tolerance and BM.
--- NOTE | 2021-07-07 11:09 | Progress Note ---
Assessment and Plan Patient is 65-year-old female with a past medical history of hypertension, diabetes, and tobacco use who is brought to the ED for complaint of weakness and altered mental status that lasted 4 days prior to admission Acute Encephalopathy Symptomatic Hyponatremia-nephrology following Acute Respiratory Failure-on Bipap PNA UTI Hypotension AF with RVR (new onset) Hypokalemia (resolved) Hypomagnesemia (resolved) H/o HTN DM2 H/o Tobacco Abuse Echo reviewed - EF 60-65%, no significant valvular abnormalities. Plan: Patient is currently sinus rhythm with PACs Continue Eliquis for anticoagulation Continue to metoprolol 100 mg p.o. BID and lisinopril 10 mg p.o. daily Patient seen in conjunction with Dr. Romano who agrees with this plan of care. We will continue to follow - Patient Problems (1) Atrial fibrillation with RVR Current Visit: Yes Status: Acute (2) Acute metabolic encephalopathy Current Visit: Yes Status: Acute (3) Acute hyponatremia Current Visit: Yes Status: Acute (4) Community acquired pneumonia Current Visit: Yes Status: Acute (5) Hypokalemia Current Visit: Yes Status: Acute (6) Essential (primary) hypertension Current Visit: Yes Status: Acute (7) Type 2 diabetes mellitus without complications Current Visit: Yes Status: Chronic (8) Hypomagnesemia Current Visit: Yes Status: Acute (9) UTI (urinary tract infection) Current Visit: Yes Status: Acute Qualifiers: Urinary tract infection type: acute cystitis Subjective Date of service: 07/07/21 Principal diagnosis: AF w RVR Interval history: Patient remained lethargic this a.m. and is still on BiPAP Patient currently sinus rhythm 80s-90s with PACs. Objective Vital Signs Temp Pulse Resp BP Pulse Ox 07/07/21 09:48 73 15 99 07/07/21 09:46 99 07/07/21 08:19 98.0 F 20 147/69 07/07/21 03:25 92 H 90 07/07/21 03:23 93 07/07/21 03:22 100.4 F H 20 111/50 07/06/21 23:18 100.6 F H 91 H 20 145/69 99 07/06/21 22:58 56 L 17 98 07/06/21 22:56 98 07/06/21 22:31 76 107/89 07/06/21 21:05 100.6 F H 76 20 107/89 100 07/06/21 16:53 114 H 16 97 07/06/21 16:48 98.7 F 115 H 16 131/64 94 07/06/21 16:00 117 H 24 94 - Physical Examination General: No Apparent Distress HEENT: Positive: Normocephaly, Mucus Membranes Dry Neck: Positive: neck supple, trachea midline Cardiac: Positive: Reg Rate and Rhythm Lungs: Positive: Decreased Breath Sounds Neuro: Positive: Grossly Intact Abdomen: Positive: Soft Skin: Negative: Rash Musculoskeletal: No Fluid Collection Extremities: Present: lower extr. pulses, warm. Absent: edema - Imaging and Cardiology EKG: report reviewed, image reviewed Echo: report reviewed - Telemetry EKG Rhythm: Sinus Rhythm - EKG Sinus rhythms and dysrhythmias: sinus rhythm Ventricular dysrhythmias: ventricular premature com Myocardial infarction: septal [place] (old age or ind, anterior [place] (old age or i - Allied health notes Allied health notes reviewed: nursing
[2021-07-07 15:34] LABS: Blood Urea Nitrogen 61 mg/dL (7-17); Hemolysis Index 59
[2021-07-07 15:37] LABS: BUN/Creatinine Ratio 122
[2021-07-07] MEDS: PRAVASTATIN 40 MG TAB PO SCH (21:28)
[2021-07-08] MEDS: INSULIN LISPRO 100 UNIT/ML SUB-Q SCH ×3 (05:27→18:05)
[2021-07-08 06:13] LABS: Hematocrit 27.8 % (30.3-42.9); Hemoglobin 8.8 gm/dl (10.1-14.3); Mean Corpuscular HGB Conc 32 % (30-34); Mean Corpuscular Volume 96 fl (79-97); Platelet Count 353 K/mm3 (140-440); Red Blood Count 2.91 M/mm3 (3.65-5.03); Red Cell Distribution Width 14.2 % (13.2-15.2)
[2021-07-08 06:26] LABS: Blood Urea Nitrogen 55 mg/dL (7-17); Calcium 10.4 mg/dL (8.4-10.2); Hemolysis Index 0
[2021-07-08 06:40] LABS: BUN/Creatinine Ratio 110
--- NOTE | 2021-07-08 09:58 | Progress Note ---
Assessment and Plan Assessment and plan: --Acute hypercapnic respiratory failure/nasal cannula oxygen/intermittent BiPAP -Currently on nasal cannula at 5 L/min will wean as tolerated -if unable to wean, will need home O2 walk test prior to d/c -keep SpO2 >92%, -BiPAP at night -likely 2/2 to CAP, Wean as tolerated Home O2 evaluation Home BiPAP evaluation --Atrial fibrillation rate controlled -continue metoprolol and eliquis -Cardiology following, Continue current management --Hypertension/well-controlled Continue current antihypertensives As needed medications --Type 2 diabetes Accu-Chek sliding scale coverage ADA diet Long-acting insulin as needed Resolved problems --Severe hyponatremia- resolved ---Acute metabolic encephalopathy- likely 2/2 hyponatremia ---Urinary tract infection --Community-acquired pneumonia-s/p abx Disposition Plan: Continue medical management Continue to wean from BiPAP Home O2 evaluation, home BiPAP at discharge We'll closely monitor the patient and adjust management as needed Plan of care reviewed with the patient and her nurse Also discussed the DC planning with case management group Consults and recommendations noted and appreciated Continue current management History Interval history: I have seen and examined the patient at the bedside Patient's chart and medications reviewed Patient feels slightly better No new complaints Hospitalist Physical - Constitutional Vitals: Temp Pulse Resp BP Pulse Ox 97.4 F L 70 24 164/80 80 L 07/08/21 07:57 07/08/21 07:57 07/08/21 07:57 07/08/21 07:57 07/08/21 07:57 General appearance: Present: no acute distress, well-nourished, obese (Morbidly) - EENT Eyes: Present: PERRL, EOM intact - Neck Neck: Present: supple, normal ROM - Respiratory Respiratory effort: normal Respiratory: bilateral: diminished, negative: rales, rhonchi, wheezing - Cardiovascular Rhythm: regular Heart Sounds: Present: S1 & S2 - Extremities Extremities: no ischemia, No edema - Abdominal General gastrointestinal: soft, non-tender, non-distended, normal bowel sounds - Integumentary Integumentary: Present: clear, warm - Psychiatric Psychiatric: appropriate mood/affect, cooperative - Neurologic Neurologic: moves all extremities HEART Score - HEART Score Troponin: Troponin T < 0.010 ng/mL (0.00-0.029) 06/22/21 07:58 Results - Labs CBC & Chem 7: 07/08/21 05:34 07/08/21 05:34 Labs: Laboratory Last Values WBC 9.4 K/mm3 (4.5-11.0) 07/08/21 05:34 RBC 2.91 M/mm3 (3.65-5.03) L 07/08/21 05:34 Hgb 8.8 gm/dl (10.1-14.3) L 07/08/21 05:34 Hct 27.8 % (30.3-42.9) L 07/08/21 05:34 MCV 96 fl (79-97) 07/08/21 05:34 MCH 30 pg (28-32) 07/08/21 05:34 MCHC 32 % (30-34) 07/08/21 05:34 RDW 14.2 % (13.2-15.2) 07/08/21 05:34 Plt Count 353 K/mm3 (140-440) 07/08/21 05:34 Lymph % (Auto) 8.6 % (13.4-35.0) L 06/30/21 04:20 Wood % (Auto) 8.3 % (0.0-7.3) H 06/30/21 04:20 Eos % (Auto) 0.5 % (0.0-4.3) 06/30/21 04:20 Baso % (Auto) 0.0 % (0.0-1.8) 06/30/21 04:20 Lymph # (Auto) 1.0 K/mm3 (1.2-5.4) L 06/30/21 04:20 Wood # (Auto) 1.0 K/mm3 (0.0-0.8) H 06/30/21 04:20 Eos # (Auto) 0.1 K/mm3 (0.0-0.4) 06/30/21 04:20 Baso # (Auto) 0.0 K/mm3 (0.0-0.1) 06/30/21 04:20 Add Manual Diff Complete 06/25/21 22:55 Total Counted 100 06/25/21 22:55 Seg Neutrophils % 82.6 % (40.0-70.0) H 06/30/21 04:20 Seg Neuts % (Manual) 91.0 % (40.0-70.0) H 06/25/21 22:55 Lymphocytes % (Manual) 6.0 % (13.4-35.0) L 06/25/21 22:55 Monocytes % (Manual) 3.0 % (0.0-7.3) 06/25/21 22:55 Metamyelocytes % 1.0 % 06/24/21 05:33 Nucleated RBC % Not Reportable 06/25/21 22:55 Seg Neutrophils # 9.8 K/mm3 (1.8-7.7) H 06/30/21 04:20 Seg Neutrophils # Man 13.5 K/mm3 (1.8-7.7) H 06/25/21 22:55 Band Neutrophils # 0.0 K/mm3 06/25/21 22:55 Lymphocytes # (Manual) 0.9 K/mm3 (1.2-5.4) L 06/25/21 22:55 Abs React Lymphs (Man) 0.0 K/mm3 06/25/21 22:55 Monocytes # (Manual) 0.4 K/mm3 (0.0-0.8) 06/25/21 22:55 Eosinophils # (Manual) 0.0 K/mm3 (0.0-0.4) 06/25/21 22:55 Basophils # (Manual) 0.0 K/mm3 (0.0-0.1) 06/25/21 22:55 Metamyelocytes # 0.0 K/mm3 06/25/21 22:55 Myelocytes # 0.0 K/mm3 06/25/21 22:55 Promyelocytes # 0.0 K/mm3 06/25/21 22:55 Blast Cells # 0.0 K/mm3 06/25/21 22:55 WBC Morphology Not Reportable 06/25/21 22:55 Hypersegmented Neuts Not Reportable 06/25/21 22:55 Hyposegmented Neuts Not Reportable 06/25/21 22:55 Hypogranular Neuts Not Reportable 06/25/21 22:55 Smudge Cells Not Reportable 06/25/21 22:55 Toxic Granulation Not Reportable 06/25/21 22:55 Toxic Vacuolation Not Reportable 06/25/21 22:55 Dohle Bodies Not Reportable 06/25/21 22:55 Pelger-Huet Anomaly Not Reportable 06/25/21 22:55 Otf Rods Not Reportable 06/25/21 22:55 Platelet Estimate Consistent w auto 06/25/21 22:55 Clumped Platelets Not Reportable 06/25/21 22:55 Plt Clumps, EDTA Not Reportable 06/25/21 22:55 Large Platelets Not Reportable 06/25/21 22:55 Giant Platelets Not Reportable 06/25/21 22:55 Platelet Satelliting Not Reportable 06/25/21 22:55 Plt Morphology Comment Not Reportable 06/25/21 22:55 RBC Morphology Normal 06/25/21 22:55 Dimorphic RBCs Not Reportable 06/25/21 22:55 Polychromasia Not Reportable 06/25/21 22:55 Hypochromasia Not Reportable 06/25/21 22:55 Poikilocytosis Not Reportable 06/25/21 22:55 Anisocytosis Not Reportable 06/25/21 22:55 Microcytosis Not Reportable 06/25/21 22:55 Macrocytosis Not Reportable 06/25/21 22:55 Spherocytes Not Reportable 06/25/21 22:55 Pappenheimer Bodies Not Reportable 06/25/21 22:55 Sickle Cells Not Reportable 06/25/21 22:55 Target Cells Not Reportable 06/25/21 22:55 Tear Drop Cells Not Reportable 06/25/21 22:55 Ovalocytes Not Reportable 06/25/21 22:55 Helmet Cells Not Reportable 06/25/21 22:55 Brid[place] Bodies Not Reportable 06/25/21 22:55 [place] Rings Not Reportable 06/25/21 22:55 Hubbard Cells Not Reportable 06/25/21 22:55 Bite Cells Not Reportable 06/25/21 22:55 Crenated Cell Not Reportable 06/25/21 22:55 Elliptocytes Not Reportable 06/25/21 22:55 Acanthocytes (Spur) Not Reportable 06/25/21 22:55 Rouleaux Not Reportable 06/25/21 22:55 Hemoglobin C Crystals Not Reportable 06/25/21 22:55 Schistocytes Not Reportable 06/25/21 22:55 Malaria parasites Not Reportable 06/25/21 22:55 Steve Bodies Not Reportable 06/25/21 22:55 Hem Pathologist Commnt No 06/25/21 22:55 PT 13.0 Sec. (12.2-14.9) 07/02/21 05:30 INR 0.88 (0.87-1.13) 07/02/21 05:30 APTT TNR 07/02/21 05:30 Thrombin Time 15.9 Sec. (15.1-19.6) 06/22/21 07:58 D-Dimer 390 ng/mlDDU (0-234) H 06/22/21 08:56 Heparin Anti-Xa Level 1.90 U.I./ml (0.3-0.7) H 07/03/21 04:09 ABG pH 7.415 pH Units (7.350-7.450) 07/06/21 16:00 POC ABG pCO2 38.0 mmHg (32.0-48.0) 06/27/21 05:06 ABG pCO2 74.5 mm Hg 07/06/21 16:00 POC ABG pO2 93.6 mmHg (83-108) 06/27/21 05:06 ABG pO2 69.0 mm Hg (80.0-90.0) L 07/06/21 16:00 POC ABG HCO3 27.7 06/27/21 05:06 ABG HCO3 46.7 mmol/L (20.0-26.0) H 07/06/21 16:00 ABG O2 Saturation 95.2 % (95.0-99.0) 07/06/21 16:00 ABG O2 Content 10.8 (0.0-44) 07/06/21 16:00 POC ABG Base Excess 4.0 06/27/21 05:06 ABG Base Excess 19.7 mmol/L (-2.0-3.0) H 07/06/21 16:00 ABG Hemoglobin 8.1 gm/dl (12.0-16.0) L 07/06/21 16:00 ABG Oxyhemoglobin 96.8 (94-98) 06/27/21 05:06 ABG Carboxyhemoglobin 1.7 % (0.0-5.0) 07/06/21 16:00 ABG Methemoglobin 0.2 % (0.0-1.5) 07/06/21 16:00 ABG Sodium 123.5 mmol/L (136.0-145.0) L 06/27/21 05:06 ABG Potassium 3.7 mmol/L (3.40-4.50) 06/27/21 05:06 ABG Chloride 91.0 mmol/L (98-107) L 06/27/21 05:06 ABG Glucose 328 mg/dL (65-95) H 06/27/21 05:06 Oxyhemoglobin 93.4 % (95.0-99.0) L 07/06/21 16:00 Carboxyhemoglobin 0.9 (0.5-1.5) 06/27/21 05:06 FiO2 40 % 07/06/21 16:00 FiO2 % 40.0 06/27/21 05:06 Sodium 154 mmol/L (137-145) H 07/08/21 05:34 Potassium 3.8 mmol/L (3.6-5.0) 07/08/21 05:34 Chloride 103.3 mmol/L (98-107) 07/08/21 05:34 Carbon Dioxide 44 mmol/L (22-30) H* 07/08/21 05:34 Anion Gap 11 mmol/L 07/08/21 05:34 BUN 55 mg/dL (7-17) H 07/08/21 05:34 Creatinine 0.5 mg/dL (0.6-1.2) L 07/08/21 05:34 Estimated GFR > 60 ml/min 07/08/21 05:34 BUN/Creatinine Ratio 110 % 07/08/21 05:34 Glucose 202 mg/dL (65-100) H 07/08/21 05:34 POC Glucose 156 mg/dL (70-105) H 07/08/21 04:57 Hemoglobin A1c 6.6 % (4-6) H 06/23/21 05:29 Osmolality 240 Mosm/kg 06/22/21 23:24 Lactic Acid 1.60 mmol/L (0.7-2.0) 06/25/21 22:55 Uric Acid 3.2 mg/dL (3.5-7.6) L 06/23/21 05:29 Calcium 10.4 mg/dL (8.4-10.2) H 07/08/21 05:34 Phosphorus 3.10 mg/dL (2.5-4.5) 07/02/21 05:23 Magnesium 1.80 mg/dL (1.7-2.3) 07/02/21 05:23 Ferritin 102.1 ng/mL (10.0-200.0) 06/22/21 08:56 Total Bilirubin 0.30 mg/dL (0.1-1.2) 06/29/21 05:13 Direct Bilirubin < 0.2 mg/dL (0-0.2) 06/26/21 04:32 Indirect Bilirubin 0.1 mg/dL 06/26/21 04:32 AST 12 units/L (5-40) 06/29/21 05:13 ALT 9 units/L (7-56) 06/29/21 05:13 Alkaline Phosphatase 31 units/L (35-129) L 06/29/21 05:13 Lactate Dehydrogenase 220 units/L (91-180) H 06/22/21 08:56 Troponin T < 0.010 ng/mL (0.00-0.029) 06/22/21 07:58 C-Reactive Protein 5.40 mg/dL (0.00-1.30) H 06/22/21 08:56 Total Protein 3.3 g/dL (6.3-8.2) L D 06/29/21 05:13 Albumin 1.9 g/dL (3.9-5) L 06/29/21 05:13 Albumin/Globulin Ratio 1.4 % 06/29/21 05:13 Procalcitonin < 0.05 ng/mL (<0.15) 06/22/21 08:56 TSH 1.070 mlU/mL (0.270-4.200) 06/22/21 07:58 Total Cortisol 36.4 mcg/dL () 06/26/21 16:06 Arterial Blood Glucose 328 mg/dL (65-95) H 06/27/21 05:06 Arterial Blood Ionized Calcium 4.9 mg/dL (4.6-5.3) 06/27/21 05:06 Urine Color Yellow (Yellow) 06/26/21 09:48 Urine Turbidity Slightly-cloudy (Clear) 06/26/21 09:48 Urine pH 6.0 (5.0-7.0) 06/26/21 09:48 Ur Specific Hickman 1.014 (1.003-1.030) 06/26/21 09:48 Urine Protein 30 mg/dl mg/dL (Negative) 06/26/21 09:48 Urine Glucose (UA) 50 mg/dL (Negative) 06/26/21 09:48 Urine Ketones 20 mg/dL (Negative) 06/26/21 09:48 Urine Blood Mod (Negative) 06/26/21 09:48 Urine Nitrite Neg (Negative) 06/26/21 09:48 Urine Bilirubin Neg (Negative) 06/26/21 09:48 Urine Urobilinogen < 2.0 mg/dL (<2.0) 06/26/21 09:48 Ur Leukocyte Esterase Mod (Negative) 06/26/21 09:48 Urine WBC (Auto) 69.0 /HPF (0.0-6.0) H 06/26/21 09:48 Urine RBC (Auto) 29.0 /HPF (0.0-6.0) 06/26/21 09:48 U Epithel Cells (Auto) 1.0 /HPF (0-13.0) 06/26/21 09:48 Urine Bacteria (Auto) 4+ /HPF (Negative) 06/26/21 09:48 Ur Transition Epith Cell 1 /HPF 06/22/21 11:47 Hyaline Casts 5 /LPF 06/22/21 11:47 Urine Mucus Few /HPF 06/26/21 09:48 Urine Yeast (Budding) 3+ /HPF 06/26/21 09:48 Urine Osmolality 571 Mosm/kg 06/22/21 11:47 Urine Sodium 25 mmol/L 06/22/21 11:47 Coronavirus (PCR) Negative (Negative) 06/22/21 Unknown Martines/IV: Voiding Method External Female Catheter Active Medications - Current Medications Current Medications: Generic Name Dose Route Start Last Admin Trade Name Freq PRN Reason Stop Dose Admin Acetaminophen 650 mg 06/22/21 22:21 07/07/21 07:25 Acetaminophen 325 Mg Tab PO 650 mg Q4H PRN Administration Pain MILD(1-3)/Fever >100.5/NAVA Lipase/Protease/Amylase 1 each 06/29/21 16:20 Lipase 10,500/Protease 25,000/Amylase 43,750 (Units) Dr Cap FEEDTUBE PRN PRN For Clogged Feeding Tube Apixaban 5 mg 07/02/21 12:00 07/07/21 21:27 Apixaban 5 Mg Tab PO 5 mg Q12HR JUDY Administration Protocol Clopidogrel Bisulfate 75 mg 06/23/21 10:00 07/07/21 09:03 Clopidogrel 75 Mg Tab PO 75 mg DAILY JUDY Administration Docusate Sodium 100 mg 06/25/21 22:00 07/07/21 21:27 Docusate Sodium 100 Mg/10 Ml Oral Liqd PO 100 mg BID JUDY Administration Famotidine 20 mg 06/29/21 22:00 07/07/21 21:28 Famotidine 20 Mg Tab FEEDTUBE 20 mg BID JUDY Administration Insulin Human Lispro 0 unit 06/26/21 12:00 07/08/21 05:27 Insulin Lispro 100 Unit/Ml SUB-Q 3 unit Q6HR JUDY Administration Protocol Lisinopril 10 mg 07/03/21 10:00 07/07/21 09:02 Lisinopril 10 Mg Tab PO 10 mg QDAY JUDY Administration Metoclopramide HCl 10 mg 06/22/21 22:21 Metoclopramide 10 Mg/2 Ml Inj IV Q6H PRN Nausea And Vomiting Metoprolol Tartrate 100 mg 07/03/21 10:00 07/07/21 21:27 Metoprolol Tartrate 100 Mg Tab PO 100 mg BID JUDY Administration Ondansetron HCl 4 mg 06/22/21 22:21 Ondansetron 4 Mg/2 Ml Inj IV Q8H PRN Nausea And Vomiting Pravastatin Sodium 40 mg 06/23/21 22:00 07/07/21 21:28 Pravastatin 40 Mg Tab PO 40 mg QHS JUDY Administration Simple Syrup 15 ml 06/29/21 16:20 Simple Syrup 15 Ml FEEDTUBE PRN PRN Hypoglycemia Simple Syrup 30 ml 06/29/21 16:20 Simple Syrup 15 Ml FEEDTUBE PRN PRN Hypoglycemia Sodium Bicarbonate 325 mg 06/29/21 16:20 Sodium Bicarbonate 325 Mg Tab FEEDTUBE PRN PRN For Clogged Feeding Tube Sodium Chloride 10 ml 06/23/21 10:00 07/07/21 21:28 Sodium Chloride 0.9% 10 Ml Flush Syringe IV 10 ml BID JUDY Administration Sodium Chloride 10 ml 06/22/21 22:21 Sodium Chloride 0.9% 10 Ml Flush Syringe IV PRN PRN LINE FLUSH Nutrition/Malnutrition Assess - Dietary Evaluation Nutrition/Malnutrition Findings: Nutrition Notes Start: 06/26/21 11:01 Freq: Status: Active Protocol: Document 07/01/21 18:17 VINCENZO (Rec: 07/01/21 18:27 VINCENZO [id number]) Nutrition Notes Initial or Follow up Brief Note Current Diet TF-Vital High Protein @ 50 ml/ hr (since D 06/29). Height 5 ft 5 in Weight 86.183 kg Hermann Body Weight (kg) 56.81 BMI 31.6 Weight change and time frame No body weight change reported . Weight Status Obese Subjective/Other Information RD consult for routine F/U on Dietary advancement or TF resume. TF continuation, new formula without changes, thus, well tolerated. Percent of energy/protein needs met: Prescribed Vital High Protein @ 50 ml/hr provides for energy /protein needs (1,200 Kcal/105 g) during LOS. #1 Nutrition Diagnosis Inadequate oral intake Diagnosis Progress(for reassessment Continues documentation) Nutrition Intervention Nutrition Support: Continue Vital High Protein @ 50 ml/hr. Flush: 50 ml water Q 4 hr. Goal #1 Provide at least 75% of energy /protein needs through Enteral Feeding during LOS. Follow-Up By: 07/08/21 Additional Comments Continue monitoring TF tolerance and BM.
--- NOTE | 2021-07-08 10:28 | XRay Report ---
ABDOMEN 1 VIEW(S) INDICATION / CLINICAL INFORMATION: ngt position. COMPARISON: 06/25/2021 FINDINGS: TUBES / LINES: The nasogastric tube is not visualized in the abdomen. BOWEL GAS PATTERN: No significant abnormality. FREE AIR / EXTRALUMINAL GAS: None seen. ADDITIONAL FINDINGS: No significant additional findings. IMPRESSION: The nasogastric tube is not visualized in the abdomen. It may be coiled in the esophagus. Signer Name: Marquis Marion Jr, MD Signed: 07/08/2021 10:23 AM Workstation Name: [id number]
--- NOTE | 2021-07-08 11:27 | Progress Note ---
Assessment and Plan Patient is 65-year-old female with a past medical history of hypertension, diabetes, and tobacco use who is brought to the ED for complaint of weakness and altered mental status that lasted 4 days prior to admission Acute Encephalopathy Symptomatic Hyponatremia-nephrology following Acute Respiratory Failure-on Bipap PNA UTI Hypotension AF with RVR (new onset) Hypokalemia (resolved) Hypomagnesemia (resolved) H/o HTN DM2 H/o Tobacco Abuse Echo reviewed - EF 60-65%, no significant valvular abnormalities. Plan: Patient is currently sinus tach rhythm with PACs Patient hemoglobin has been noted to been decreasing since admission due to A. fib will continue Eliquis for anticoagulation with close monitoring of H&H and signs of bleeds Continue to metoprolol 100 mg p.o. BID and lisinopril 10 mg p.o. daily Patient seen in conjunction with Dr. Romano who agrees with this plan of care. We will continue to follow - Patient Problems (1) Atrial fibrillation with RVR Current Visit: Yes Status: Acute (2) Acute metabolic encephalopathy Current Visit: Yes Status: Acute (3) Acute hyponatremia Current Visit: Yes Status: Acute (4) Community acquired pneumonia Current Visit: Yes Status: Acute (5) Hypokalemia Current Visit: Yes Status: Acute (6) Essential (primary) hypertension Current Visit: Yes Status: Acute (7) Type 2 diabetes mellitus without complications Current Visit: Yes Status: Chronic (8) Hypomagnesemia Current Visit: Yes Status: Acute (9) UTI (urinary tract infection) Current Visit: Yes Status: Acute Qualifiers: Urinary tract infection type: acute cystitis Subjective Date of service: 07/08/21 Principal diagnosis: AF w RVR Interval history: Patient more awake this a.m. 6on BiPAP in no acute distress Patient sinus tach 110 with PACs. Objective Vital Signs Temp Pulse Pulse Resp BP BP Pulse Ox 07/08/21 07:57 97.4 F L 70 24 164/80 80 L 07/08/21 05:01 97.6 F 106 H 22 167/43 97 07/08/21 04:05 16 98 07/08/21 00:28 86 95 07/07/21 23:00 97.4 F L 86 23 121/75 98 07/07/21 21:53 67 19 100 07/07/21 19:37 97.4 F L 111 H 24 152/61 94 07/07/21 15:49 82 24 99 07/07/21 15:32 98.0 F 100 H 18 130/62 97 07/07/21 13:10 86 93 07/07/21 12:45 78 22 99 - Physical Examination General: No Apparent Distress HEENT: Positive: Normocephaly, Mucus Membranes Dry Neck: Positive: neck supple, trachea midline Cardiac: Positive: Regular Rhythm, Tachycardia Lungs: Positive: Rhonchi Neuro: Positive: Grossly Intact Abdomen: Positive: Soft Skin: Negative: Rash Musculoskeletal: No Fluid Collection Extremities: Present: lower extr. pulses, warm. Absent: edema - Labs and Meds CBC 07/08/21 Range/Units 05:34 WBC 9.4 (4.5-11.0) K/mm3 RBC 2.91 L (3.65-5.03) M/mm3 Hgb 8.8 L (10.1-14.3) gm/dl Hct 27.8 L (30.3-42.9) % Plt Count 353 (140-440) K/mm3 Comprehensive Metabolic Panel 07/07/21 07/08/21 Range/Units 14:44 05:34 Sodium 152 H D 154 H (137-145) mmol/L Potassium 4.5 3.8 (3.6-5.0) mmol/L Chloride 102.8 103.3 (98-107) mmol/L Carbon Dioxide 45 H* D 44 H* (22-30) mmol/L BUN 61 H 55 H (7-17) mg/dL Creatinine 0.5 L 0.5 L (0.6-1.2) mg/dL Glucose 224 H 202 H (65-100) mg/dL Calcium 10.0 10.4 H (8.4-10.2) mg/dL - Imaging and Cardiology EKG: report reviewed, image reviewed Echo: report reviewed - Telemetry EKG Rhythm: Sinus Tachycardia - EKG Sinus rhythms and dysrhythmias: sinus tachycardia Ventricular dysrhythmias: ventricular premature com Myocardial infarction: septal NV (old age or ind, anterior NV (old age or i - Allied health notes Allied health notes reviewed: nursing
[2021-07-08] MEDS: DOCUSATE SODIUM 100 MG/10 ML ORAL LIQD PO SCH ×2 (12:08→22:05)
[2021-07-08] MEDS: ACETAMINOPHEN 325 MG TAB PO PRN (12:08)
[2021-07-08] MEDS: CLOPIDOGREL 75 MG TAB PO SCH (12:09)
[2021-07-08] MEDS: APIXABAN 5 MG TAB PO SCH ×2 (12:09→22:05)
[2021-07-08] MEDS: FAMOTIDINE 20 MG TAB FEEDTUBE SCH ×2 (12:09→22:06)
[2021-07-08] MEDS: METOPROLOL TARTRATE 100 MG TAB PO SCH ×2 (12:10→22:06)
[2021-07-08] MEDS: LISINOPRIL 10 MG TAB PO SCH (12:12)
--- NOTE | 2021-07-08 13:25 | XRay Report ---
XR abdomen 1V ap INDICATION: NGT position COMPARISON: None. FINDINGS/IMPRESSION: Enteric tube terminates in the distal esophagus. Advance further and reimage to ensure appropriate po sitioning. Signer Name: Andrea Parker MD Signed: 07/08/2021 1:21 PM Workstation Name: [id number]
--- NOTE | 2021-07-08 15:28 | XRay Report ---
XR abdomen 1V ap INDICATION: ngt POSITION COMPARISON: Earlier same day FINDINGS/IMPRESSION: Enteric tube terminates in the proximal stomach. Side-port is at the GE junction. Recommend advancing further. Signer Name: Andrea Parker MD Signed: 07/08/2021 3:24 PM Workstation Name: [id number]
--- NOTE | 2021-07-08 17:04 | XRay Report ---
ABDOMEN 1 VIEW INDICATION / CLINICAL INFORMATION: ngt POSITION. COMPARISON: 07/08/2021. FINDINGS: Nasogastric tube tip and side-port project in the distal stomach. Signer Name: Robert Hernandez MD Signed: 07/08/2021 5:00 PM Workstation Name: [id number]
[2021-07-08] MEDS: PRAVASTATIN 40 MG TAB PO SCH (22:06)
[2021-07-09] MEDS: INSULIN LISPRO 100 UNIT/ML SUB-Q SCH ×4 (00:03→18:06)
--- NOTE | 2021-07-09 11:04 | Progress Note ---
Assessment and Plan Patient is 65-year-old female with a past medical history of hypertension, diabetes, and tobacco use who is brought to the ED for complaint of weakness and altered mental status that lasted 4 days prior to admission Acute Encephalopathy Symptomatic Hyponatremia-nephrology following Acute Respiratory Failure-on Bipap PNA UTI Hypotension AF with RVR (new onset) Hypokalemia (resolved) Hypomagnesemia (resolved) H/o HTN DM2 H/o Tobacco Abuse Echo reviewed - EF 60-65%, no significant valvular abnormalities. Plan: Patient is currently sinus tach rhythm with PACs Patient hemoglobin has been noted to been decreasing since admission. Today Hbg came back as 7.6. Will hold Eliquis Continue to metoprolol 100 mg p.o. BID and lisinopril 10 mg p.o. daily Patient seen in conjunction with Dr. Romano who agrees with this plan of care. We will continue to follow - Patient Problems (1) Atrial fibrillation with RVR Current Visit: Yes Status: Acute (2) Acute metabolic encephalopathy Current Visit: Yes Status: Acute (3) Acute hyponatremia Current Visit: Yes Status: Acute (4) Community acquired pneumonia Current Visit: Yes Status: Acute (5) Hypokalemia Current Visit: Yes Status: Acute (6) Essential (primary) hypertension Current Visit: Yes Status: Acute (7) Type 2 diabetes mellitus without complications Current Visit: Yes Status: Chronic (8) Hypomagnesemia Current Visit: Yes Status: Acute (9) UTI (urinary tract infection) Current Visit: Yes Status: Acute Qualifiers: Urinary tract infection type: acute cystitis Subjective Date of service: 07/09/21 Principal diagnosis: AF w RVR Interval history: Patient currently on BiPAP in no acute distress Patient sinus tach 100s with PACs. Objective Vital Signs Temp Pulse Pulse Resp BP Pulse Ox 07/09/21 03:49 122.0 F H 91 H 22 109/40 80 L 07/09/21 03:41 97.5 F L 07/09/21 01:10 86 95 07/09/21 00:00 100 H 18 100 07/08/21 23:51 97.4 F L 103 H 20 122/59 100 07/08/21 22:00 100 07/08/21 20:00 108 H 22 99 07/08/21 19:57 97.4 F L 67 22 134/47 99 07/08/21 16:28 98.0 F 50 L 19 150/55 87 07/08/21 16:17 112 H 20 100 07/08/21 12:12 122 H 07/08/21 12:10 120 H 07/08/21 11:50 98.1 F 105 H 28 H 106/57 99 07/08/21 11:41 110 H 23 94 - Physical Examination General: No Apparent Distress HEENT: Positive: Normocephaly, Mucus Membranes Dry Neck: Positive: neck supple, trachea midline Cardiac: Positive: Regular Rhythm, Tachycardia Lungs: Positive: Decreased Breath Sounds Neuro: Positive: Grossly Intact Abdomen: Positive: Soft Skin: Negative: Rash Musculoskeletal: No Fluid Collection Extremities: Present: lower extr. pulses, warm. Absent: edema - Imaging and Cardiology EKG: report reviewed, image reviewed Echo: report reviewed - Telemetry EKG Rhythm: Sinus Tachycardia - EKG Sinus rhythms and dysrhythmias: sinus tachycardia Supraventricular dysrhythmia: atrial premature complexe Myocardial infarction: septal AL (old age or ind, anterior AL (old age or i - Allied health notes Allied health notes reviewed: nursing
[2021-07-09 11:05] LABS: Blood Urea Nitrogen 53 mg/dL (7-17); Calcium 10.6 mg/dL (8.4-10.2); Hemolysis Index 3
[2021-07-09 11:09] LABS: BUN/Creatinine Ratio 106
[2021-07-09 11:16] LABS: Hematocrit 24.9 % (30.3-42.9); Hemoglobin 7.6 gm/dl (10.1-14.3); Mean Corpuscular HGB Conc 31 % (30-34); Mean Corpuscular Volume 96 fl (79-97); Platelet Count 304 K/mm3 (140-440); Red Blood Count 2.59 M/mm3 (3.65-5.03); Red Cell Distribution Width 14.7 % (13.2-15.2)
[2021-07-09] MEDS: LISINOPRIL 10 MG TAB PO SCH (11:45)
[2021-07-09] MEDS: FAMOTIDINE 20 MG TAB FEEDTUBE SCH ×2 (11:45→21:33)
[2021-07-09] MEDS: METOPROLOL TARTRATE 100 MG TAB PO SCH ×2 (11:45→21:32)
[2021-07-09] MEDS: APIXABAN 5 MG TAB PO SCH (11:45)
[2021-07-09] MEDS: CLOPIDOGREL 75 MG TAB PO SCH (11:45)
[2021-07-09] MEDS: DOCUSATE SODIUM 100 MG/10 ML ORAL LIQD PO SCH ×2 (11:46→21:32)
--- NOTE | 2021-07-09 12:17 | Progress Note ---
Assessment and Plan 65 y/o female with symptomatic hyponatremia of unknown etiology 07/09/21: can come off bipap but must be worn at night and PRN. CM working on funding. Guarded prognosis 07/03/21: Continue NIV at night. Unfortunately, based on CM note, it appears she has no funding but really needs NIV therapy. Wean supplemental O2 as tolerated and will need walk test prior to discharge. Suggest PT/OT consult as well. 07/02/21: stable pulm [facility] now for transfer to floor, should have tele. COntinue bipap at night and pRN. CM investigating funding as she will need NIV at discharge. 07/01/21: Will need NIV for night time and PRN use at home. Will continue bipap QHS and PRN here. Ok with transfer to step down for at least 24 hours and then to floor. Rate control per cards. Ok to restart feeds as well. Will continue to follow. CM to further investigate funding 06/30/21: Will give break off bipap for at least an hour and monitor mental state hourly. In the event she requires continuous bipap again, then will discuss with patient and family () the Idea of trach, trach care and what that could mean for her in the future. Cardiology has ordered PO meds. We will attempt to give those but we had changed them back to IV given the likelihood she is going to require bipap again. Continue ICU care. 06/29/21: Will keep patient on continuous bipap at least until tomorrow morning. Try off Bipap again. If she fails will reach out to surgery as patient would likely need trach. Biggest question is why now (for CO2 retention.) Per cards echo is normal and when asked no prior history of RADHA. Will keep NPO so will nee to Continue Amio drip. Will place on scheduled lopressor since we cannot give oral meds at this time. 06/26/21: Transfer on hold. Follow up repeat ABG. Wean vasopressors for maps >65. Call renal in regards to Na since no real improvement with samsaca. Place n[place]. If 3% is needed again, please give through central line. 06/25/21: Transferring to floor. Suggest remote tele. Wean FiO2 as tolerated. Will continue to follow. 06/24/21: Given Na greater than 120 and symptoms continue to improve, no objection to down grade to floor status. Suggest either tele floor or remote tele. Follow up renal recs. 1. Follow up renal recs 2. Yesterday placed patient on normal saline but now that 3% is being given will discontinue 3. q6 hour Chemistries given low chloride as well 4. Frequent neuro checks given rising na 5. Guarded prognosis. CCT 31minutes. Subjective Date of service: 07/09/21 Principal diagnosis: AF w RVR Interval history: Nguyen PCR was negative. Objective Vital Signs - 12hr 07/09/21 07/09/21 07/09/21 01:10 03:41 03:49 Temperature 97.5 F L 122.0 F H Pulse Rate 91 H Pulse Rate [ 86 From Monitor] Respiratory 22 Rate Blood Pressure 109/40 O2 Sat by Pulse 95 80 L Oximetry Constitutional: no acute distress, alert, other (obese) Eyes: non-icteric ENT: oropharynx moist Neck: supple Effort: normal Ascultation: Bilateral: diminished breath sounds, other (coarse BS bilaterally) Cardiovascular: regular rate and rhythm (ir/ir, no mrg) Gastrointestinal: normoactive bowel sounds, soft, non-distended Integumentary: normal Extremities: no cyanosis, no edema, pink and warm Neurologic: normal mental status, non-focal exam, pupils equal and round, CN II- XII normal Psychiatric: mood appropriate, affect normal CBC and BMP: 07/09/21 10:18 07/09/21 10:18 ABG, PT/INR, D-dimer: ABG ABG pH 7.415 pH Units (7.350-7.450) 07/06/21 16:00 POC ABG pCO2 38.0 mmHg (32.0-48.0) 06/27/21 05:06 ABG pCO2 74.5 mm Hg 07/06/21 16:00 POC ABG pO2 93.6 mmHg (83-108) 06/27/21 05:06 ABG pO2 69.0 mm Hg (80.0-90.0) L 07/06/21 16:00 POC ABG HCO3 27.7 06/27/21 05:06 ABG O2 Saturation 95.2 % (95.0-99.0) 07/06/21 16:00 PT/INR, D-dimer PT 13.0 Sec. (12.2-14.9) 07/02/21 05:30 INR 0.88 (0.87-1.13) 07/02/21 05:30 D-Dimer 390 ng/mlDDU (0-234) H 06/22/21 08:56 Abnormal lab findings: Abnormal Labs 06/22/21 06/22/21 06/22/21 07:58 07:58 07:58 WBC 13.0 H RBC Hgb Hct MCHC 35 H Lymph % (Auto) 6.3 L Mccone % (Auto) 7.4 H Lymph # (Auto) 0.8 L Mccone # (Auto) 1.0 H Seg Neutrophils % 85.5 H Seg Neuts % (Manual) Lymphocytes % (Manual) Seg Neutrophils # 11.1 H Seg Neutrophils # Man Lymphocytes # (Manual) PT 11.8 L INR 0.78 L D-Dimer Heparin Anti-Xa Level ABG pH POC ABG pCO2 ABG pO2 ABG HCO3 ABG O2 Saturation ABG Base Excess ABG Hemoglobin ABG Oxyhemoglobin ABG Sodium ABG Chloride ABG Glucose Oxyhemoglobin Sodium 107 L* Potassium 2.7 L* Chloride 60.0 L Carbon Dioxide 32 H BUN Creatinine 0.5 L Glucose 177 H POC Glucose Hemoglobin A1c Lactic Acid Uric Acid Calcium Phosphorus Magnesium Alkaline Phosphatase Lactate Dehydrogenase C-Reactive Protein Total Protein Albumin Arterial Blood Glucose Urine WBC (Auto) 06/22/21 06/22/21 06/22/21 08:56 08:56 08:56 WBC RBC Hgb Hct MCHC Lymph % (Auto) Mccone % (Auto) Lymph # (Auto) Mccone # (Auto) Seg Neutrophils % Seg Neuts % (Manual) Lymphocytes % (Manual) Seg Neutrophils # Seg Neutrophils # Man Lymphocytes # (Manual) PT INR D-Dimer 390 H Heparin Anti-Xa Level ABG pH POC ABG pCO2 ABG pO2 ABG HCO3 ABG O2 Saturation ABG Base Excess ABG Hemoglobin ABG Oxyhemoglobin ABG Sodium ABG Chloride ABG Glucose Oxyhemoglobin Sodium Potassium Chloride Carbon Dioxide BUN Creatinine Glucose 179 H POC Glucose Hemoglobin A1c Lactic Acid 2.10 H* Uric Acid Calcium Phosphorus Magnesium Alkaline Phosphatase Lactate Dehydrogenase 220 H C-Reactive Protein 5.40 H Total Protein Albumin Arterial Blood Glucose Urine WBC (Auto) 06/22/21 06/22/21 06/22/21 08:56 11:47 14:20 WBC RBC Hgb Hct MCHC Lymph % (Auto) Mccone % (Auto) Lymph # (Auto) Mccone # (Auto) Seg Neutrophils % Seg Neuts % (Manual) Lymphocytes % (Manual) Seg Neutrophils # Seg Neutrophils # Man Lymphocytes # (Manual) PT INR D-Dimer Heparin Anti-Xa Level ABG pH POC ABG pCO2 ABG pO2 ABG HCO3 ABG O2 Saturation ABG Base Excess ABG Hemoglobin ABG Oxyhemoglobin ABG Sodium ABG Chloride ABG Glucose Oxyhemoglobin Sodium 104 L* 112 L* D Potassium 3.2 L 2.7 L* Chloride 60.0 L 65.2 L Carbon Dioxide 32 H BUN Creatinine 0.4 L 0.4 L Glucose 181 H 119 H POC Glucose Hemoglobin A1c Lactic Acid Uric Acid Calcium Phosphorus Magnesium Alkaline Phosphatase Lactate Dehydrogenase C-Reactive Protein Total Protein Albumin Arterial Blood Glucose Urine WBC (Auto) 11.0 H 06/22/21 06/23/21 06/23/21 18:19 05:29 05:29 WBC 12.4 H RBC Hgb Hct MCHC Lymph % (Auto) 5.8 L Mccone % (Auto) Lymph # (Auto) 0.7 L Mccone # (Auto) 0.9 H Seg Neutrophils % 87.1 H Seg Neuts % (Manual) Lymphocytes % (Manual) Seg Neutrophils # 10.8 H Seg Neutrophils # Man Lymphocytes # (Manual) PT INR D-Dimer Heparin Anti-Xa Level ABG pH POC ABG pCO2 ABG pO2 ABG HCO3 ABG O2 Saturation ABG Base Excess ABG Hemoglobin ABG Oxyhemoglobin ABG Sodium ABG Chloride ABG Glucose Oxyhemoglobin Sodium 112 L* 112 L* Potassium 2.7 L* 2.6 L* Chloride 65.8 L 67.5 L Carbon Dioxide 31 H 33 H BUN Creatinine 0.3 L 0.4 L Glucose POC Glucose Hemoglobin A1c Lactic Acid Uric Acid 3.2 L Calcium Phosphorus Magnesium Alkaline Phosphatase Lactate Dehydrogenase C-Reactive Protein Total Protein Albumin Arterial Blood Glucose Urine WBC (Auto) 06/23/21 06/23/21 06/23/21 05:29 05:29 12:11 WBC RBC Hgb Hct MCHC Lymph % (Auto) Mccone % (Auto) Lymph # (Auto) Mccone # (Auto) Seg Neutrophils % Seg Neuts % (Manual) Lymphocytes % (Manual) Seg Neutrophils # Seg Neutrophils # Man Lymphocytes # (Manual) PT INR D-Dimer Heparin Anti-Xa Level ABG pH POC ABG pCO2 ABG pO2 ABG HCO3 ABG O2 Saturation ABG Base Excess ABG Hemoglobin ABG Oxyhemoglobin ABG Sodium ABG Chloride ABG Glucose Oxyhemoglobin Sodium 113 L* Potassium 2.6 L* Chloride 69.7 L Carbon Dioxide BUN Creatinine 0.4 L Glucose 106 H POC Glucose Hemoglobin A1c 6.6 H Lactic Acid Uric Acid Calcium Phosphorus Magnesium 1.50 L Alkaline Phosphatase Lactate Dehydrogenase C-Reactive Protein Total Protein Albumin Arterial Blood Glucose Urine WBC (Auto) 06/23/21 06/24/21 06/24/21 17:43 00:43 00:45 WBC RBC Hgb Hct MCHC Lymph % (Auto) Mccone % (Auto) Lymph # (Auto) Mccone # (Auto) Seg Neutrophils % Seg Neuts % (Manual) Lymphocytes % (Manual) Seg Neutrophils # Seg Neutrophils # Man Lymphocytes # (Manual) PT INR D-Dimer Heparin Anti-Xa Level ABG pH POC ABG pCO2 ABG pO2 ABG HCO3 ABG O2 Saturation ABG Base Excess ABG Hemoglobin ABG Oxyhemoglobin ABG Sodium ABG Chloride ABG Glucose Oxyhemoglobin Sodium 117 L* 119 L* Potassium Chloride 74.9 L 79.6 L Carbon Dioxide 32 H BUN Creatinine 0.3 L 0.4 L Glucose 125 H 116 H POC Glucose 117 H Hemoglobin A1c Lactic Acid Uric Acid Calcium Phosphorus Magnesium Alkaline Phosphatase Lactate Dehydrogenase C-Reactive Protein Total Protein Albumin Arterial Blood Glucose Urine WBC (Auto) 06/24/21 06/24/21 06/24/21 05:33 05:33 06:11 WBC 12.0 H RBC Hgb Hct MCHC Lymph % (Auto) Mccone % (Auto) Lymph # (Auto) Mccone # (Auto) Seg Neutrophils % Seg Neuts % (Manual) 95.0 H Lymphocytes % (Manual) 2.0 L Seg Neutrophils # Seg Neutrophils # Man 11.4 H Lymphocytes # (Manual) 0.2 L PT INR D-Dimer Heparin Anti-Xa Level ABG pH POC ABG pCO2 ABG pO2 ABG HCO3 ABG O2 Saturation ABG Base Excess ABG Hemoglobin ABG Oxyhemoglobin ABG Sodium ABG Chloride ABG Glucose Oxyhemoglobin Sodium 122 L Potassium Chloride 80.2 L Carbon Dioxide 31 H BUN Creatinine 0.3 L Glucose 143 H POC Glucose 141 H Hemoglobin A1c Lactic Acid Uric Acid Calcium Phosphorus Magnesium Alkaline Phosphatase Lactate Dehydrogenase C-Reactive Protein Total Protein Albumin Arterial Blood Glucose Urine WBC (Auto) 06/24/21 06/24/21 06/24/21 16:25 18:16 23:49 WBC RBC Hgb Hct MCHC Lymph % (Auto) Mccone % (Auto) Lymph # (Auto) Mccone # (Auto) Seg Neutrophils % Seg Neuts % (Manual) Lymphocytes % (Manual) Seg Neutrophils # Seg Neutrophils # Man Lymphocytes # (Manual) PT INR D-Dimer Heparin Anti-Xa Level ABG pH POC ABG pCO2 ABG pO2 ABG HCO3 ABG O2 Saturation ABG Base Excess ABG Hemoglobin ABG Oxyhemoglobin ABG Sodium ABG Chloride ABG Glucose Oxyhemoglobin Sodium 122 L 123 L Potassium Chloride 78.9 L Carbon Dioxide 32 H BUN Creatinine 0.5 L D Glucose 141 H POC Glucose 162 H Hemoglobin A1c Lactic Acid Uric Acid Calcium Phosphorus Magnesium Alkaline Phosphatase Lactate Dehydrogenase C-Reactive Protein Total Protein Albumin Arterial Blood Glucose Urine WBC (Auto) 06/25/21 06/25/21 06/25/21 00:18 03:06 06:15 WBC RBC Hgb Hct MCHC Lymph % (Auto) Mccone % (Auto) Lymph # (Auto) Mccone # (Auto) Seg Neutrophils % Seg Neuts % (Manual) Lymphocytes % (Manual) Seg Neutrophils # Seg Neutrophils # Man Lymphocytes # (Manual) PT INR D-Dimer Heparin Anti-Xa Level ABG pH POC ABG pCO2 ABG pO2 ABG HCO3 ABG O2 Saturation ABG Base Excess ABG Hemoglobin ABG Oxyhemoglobin ABG Sodium ABG Chloride ABG Glucose Oxyhemoglobin Sodium 122 L Potassium Chloride Carbon Dioxide BUN Creatinine Glucose POC Glucose 151 H 149 H Hemoglobin A1c Lactic Acid Uric Acid Calcium Phosphorus Magnesium Alkaline Phosphatase Lactate Dehydrogenase C-Reactive Protein Total Protein Albumin Arterial Blood Glucose Urine WBC (Auto) 06/25/21 06/25/21 06/25/21 10:19 13:42 13:42 WBC RBC Hgb Hct MCHC Lymph % (Auto) Mccone % (Auto) Lymph # (Auto) Mccone # (Auto) Seg Neutrophils % Seg Neuts % (Manual) Lymphocytes % (Manual) Seg Neutrophils # Seg Neutrophils # Man Lymphocytes # (Manual) PT INR 0.85 L D-Dimer Heparin Anti-Xa Level ABG pH POC ABG pCO2 ABG pO2 ABG HCO3 ABG O2 Saturation ABG Base Excess ABG Hemoglobin ABG Oxyhemoglobin ABG Sodium ABG Chloride ABG Glucose Oxyhemoglobin Sodium 123 L Potassium Chloride 78.5 L Carbon Dioxide 32 H BUN 19 H Creatinine Glucose 193 H POC Glucose 152 H Hemoglobin A1c Lactic Acid Uric Acid Calcium Phosphorus Magnesium Alkaline Phosphatase Lactate Dehydrogenase C-Reactive Protein Total Protein Albumin Arterial Blood Glucose Urine WBC (Auto) 06/25/21 06/25/21 06/25/21 15:13 15:21 19:49 WBC RBC Hgb Hct MCHC Lymph % (Auto) Mccone % (Auto) Lymph # (Auto) Mccone # (Auto) Seg Neutrophils % Seg Neuts % (Manual) Lymphocytes % (Manual) Seg Neutrophils # Seg Neutrophils # Man Lymphocytes # (Manual) PT INR D-Dimer Heparin Anti-Xa Level < 0.10 L ABG pH POC ABG pCO2 ABG pO2 ABG HCO3 ABG O2 Saturation ABG Base Excess ABG Hemoglobin ABG Oxyhemoglobin ABG Sodium ABG Chloride ABG Glucose Oxyhemoglobin Sodium Potassium Chloride Carbon Dioxide BUN Creatinine Glucose POC Glucose 221 H 194 H Hemoglobin A1c Lactic Acid Uric Acid Calcium Phosphorus Magnesium Alkaline Phosphatase Lactate Dehydrogenase C-Reactive Protein Total Protein Albumin Arterial Blood Glucose Urine WBC (Auto) 06/25/21 06/25/21 06/25/21 21:21 22:55 22:55 WBC 14.8 H RBC Hgb Hct MCHC Lymph % (Auto) Mccone % (Auto) Lymph # (Auto) Mccone # (Auto) Seg Neutrophils % Seg Neuts % (Manual) 91.0 H Lymphocytes % (Manual) 6.0 L Seg Neutrophils # Seg Neutrophils # Man 13.5 H Lymphocytes # (Manual) 0.9 L PT INR D-Dimer Heparin Anti-Xa Level ABG pH 7.086 L POC ABG pCO2 104.9 H ABG pO2 ABG HCO3 ABG O2 Saturation ABG Base Excess ABG Hemoglobin ABG Oxyhemoglobin 92.4 L ABG Sodium 123.4 L ABG Chloride 81.0 L ABG Glucose 225 H Oxyhemoglobin Sodium 124 L Potassium Chloride 82.9 L Carbon Dioxide BUN 22 H Creatinine Glucose 226 H POC Glucose Hemoglobin A1c Lactic Acid Uric Acid Calcium 8.2 L Phosphorus 4.70 H Magnesium Alkaline Phosphatase Lactate Dehydrogenase C-Reactive Protein Total Protein Albumin Arterial Blood Glucose 225 H Urine WBC (Auto) 06/26/21 06/26/21 06/26/21 00:35 02:58 04:32 WBC RBC Hgb Hct MCHC Lymph % (Auto) Mccone % (Auto) Lymph # (Auto) Mccone # (Auto) Seg Neutrophils % Seg Neuts % (Manual) Lymphocytes % (Manual) Seg Neutrophils # Seg Neutrophils # Man Lymphocytes # (Manual) PT INR D-Dimer Heparin Anti-Xa Level ABG pH POC ABG pCO2 ABG pO2 439.6 H ABG HCO3 30.0 H ABG O2 Saturation 99.6 H ABG Base Excess 3.3 H ABG Hemoglobin ABG Oxyhemoglobin ABG Sodium ABG Chloride ABG Glucose Oxyhemoglobin Sodium 123 L Potassium Chloride 79.2 L Carbon Dioxide BUN 26 H Creatinine Glucose 202 H POC Glucose 227 H Hemoglobin A1c Lactic Acid Uric Acid Calcium Phosphorus Magnesium Alkaline Phosphatase Lactate Dehydrogenase C-Reactive Protein Total Protein 5.9 L Albumin 2.8 L Arterial Blood Glucose Urine WBC (Auto) 06/26/21 06/26/21 06/26/21 05:53 09:14 09:48 WBC RBC Hgb Hct MCHC Lymph % (Auto) Mccone % (Auto) Lymph # (Auto) Mccone # (Auto) Seg Neutrophils % Seg Neuts % (Manual) Lymphocytes % (Manual) Seg Neutrophils # Seg Neutrophils # Man Lymphocytes # (Manual) PT INR D-Dimer Heparin Anti-Xa Level ABG pH POC ABG pCO2 ABG pO2 ABG HCO3 ABG O2 Saturation ABG Base Excess ABG Hemoglobin ABG Oxyhemoglobin ABG Sodium ABG Chloride ABG Glucose Oxyhemoglobin Sodium Potassium Chloride Carbon Dioxide BUN Creatinine Glucose POC Glucose 187 H 194 H Hemoglobin A1c Lactic Acid Uric Acid Calcium Phosphorus Magnesium Alkaline Phosphatase Lactate Dehydrogenase C-Reactive Protein Total Protein Albumin Arterial Blood Glucose Urine WBC (Auto) 69.0 H 06/26/21 06/26/21 06/26/21 10:00 16:06 22:34 WBC RBC Hgb Hct MCHC Lymph % (Auto) Mccone % (Auto) Lymph # (Auto) Mccone # (Auto) Seg Neutrophils % Seg Neuts % (Manual) Lymphocytes % (Manual) Seg Neutrophils # Seg Neutrophils # Man Lymphocytes # (Manual) PT INR D-Dimer Heparin Anti-Xa Level ABG pH 7.467 H POC ABG pCO2 ABG pO2 125.4 H ABG HCO3 ABG O2 Saturation ABG Base Excess ABG Hemoglobin ABG Oxyhemoglobin ABG Sodium ABG Chloride ABG Glucose Oxyhemoglobin Sodium 128 L Potassium Chloride 88.6 L Carbon Dioxide BUN 32 H Creatinine Glucose 161 H POC Glucose 231 H Hemoglobin A1c Lactic Acid Uric Acid Calcium Phosphorus Magnesium Alkaline Phosphatase Lactate Dehydrogenase C-Reactive Protein Total Protein Albumin Arterial Blood Glucose Urine WBC (Auto) 06/26/21 06/27/21 06/27/21 23:32 05:06 06:00 WBC 12.0 H RBC Hgb Hct MCHC Lymph % (Auto) Mccone % (Auto) Lymph # (Auto) Mccone # (Auto) Seg Neutrophils % Seg Neuts % (Manual) Lymphocytes % (Manual) Seg Neutrophils # Seg Neutrophils # Man Lymphocytes # (Manual) PT INR D-Dimer Heparin Anti-Xa Level ABG pH 7.480 H POC ABG pCO2 ABG pO2 ABG HCO3 ABG O2 Saturation ABG Base Excess ABG Hemoglobin 11.9 L ABG Oxyhemoglobin ABG Sodium 123.5 L ABG Chloride 91.0 L ABG Glucose 328 H Oxyhemoglobin Sodium 126 L Potassium Chloride 89.2 L Carbon Dioxide BUN 34 H Creatinine Glucose 257 H POC Glucose Hemoglobin A1c Lactic Acid Uric Acid Calcium Phosphorus Magnesium Alkaline Phosphatase Lactate Dehydrogenase C-Reactive Protein Total Protein Albumin Arterial Blood Glucose 328 H Urine WBC (Auto) 06/27/21 06/27/21 06/27/21 06:00 11:41 17:06 WBC RBC Hgb Hct MCHC Lymph % (Auto) Mccone % (Auto) Lymph # (Auto) Mccone # (Auto) Seg Neutrophils % Seg Neuts % (Manual) Lymphocytes % (Manual) Seg Neutrophils # Seg Neutrophils # Man Lymphocytes # (Manual) PT INR D-Dimer Heparin Anti-Xa Level ABG pH POC ABG pCO2 ABG pO2 ABG HCO3 ABG O2 Saturation ABG Base Excess ABG Hemoglobin ABG Oxyhemoglobin ABG Sodium ABG Chloride ABG Glucose Oxyhemoglobin Sodium 128 L Potassium Chloride 91.4 L Carbon Dioxide BUN 36 H Creatinine Glucose 346 H POC Glucose 259 H 301 H Hemoglobin A1c Lactic Acid Uric Acid Calcium Phosphorus Magnesium Alkaline Phosphatase Lactate Dehydrogenase C-Reactive Protein Total Protein Albumin Arterial Blood Glucose Urine WBC (Auto) 06/27/21 06/28/21 06/28/21 23:36 03:00 03:00 WBC 14.9 H RBC 3.46 L Hgb Hct MCHC Lymph % (Auto) 2.8 L Mccone % (Auto) 7.5 H Lymph # (Auto) 0.4 L Mccone # (Auto) 1.1 H Seg Neutrophils % 89.6 H Seg Neuts % (Manual) Lymphocytes % (Manual) Seg Neutrophils # 13.4 H Seg Neutrophils # Man Lymphocytes # (Manual) PT INR D-Dimer Heparin Anti-Xa Level ABG pH POC ABG pCO2 ABG pO2 ABG HCO3 ABG O2 Saturation ABG Base Excess ABG Hemoglobin ABG Oxyhemoglobin ABG Sodium ABG Chloride ABG Glucose Oxyhemoglobin Sodium 134 L Potassium Chloride 91.1 L Carbon Dioxide BUN 35 H Creatinine Glucose 235 H POC Glucose 215 H Hemoglobin A1c Lactic Acid Uric Acid Calcium Phosphorus 1.10 L Magnesium Alkaline Phosphatase Lactate Dehydrogenase C-Reactive Protein Total Protein Albumin Arterial Blood Glucose Urine WBC (Auto) 06/28/21 06/28/21 06/28/21 03:00 05:13 16:53 WBC RBC Hgb Hct MCHC Lymph % (Auto) Mccone % (Auto) Lymph # (Auto) Mccone # (Auto) Seg Neutrophils % Seg Neuts % (Manual) Lymphocytes % (Manual) Seg Neutrophils # Seg Neutrophils # Man Lymphocytes # (Manual) PT INR D-Dimer Heparin Anti-Xa Level 0.27 L ABG pH POC ABG pCO2 ABG pO2 ABG HCO3 ABG O2 Saturation ABG Base Excess ABG Hemoglobin ABG Oxyhemoglobin ABG Sodium ABG Chloride ABG Glucose Oxyhemoglobin Sodium Potassium Chloride Carbon Dioxide BUN Creatinine Glucose POC Glucose 241 H 213 H Hemoglobin A1c Lactic Acid Uric Acid Calcium Phosphorus Magnesium Alkaline Phosphatase Lactate Dehydrogenase C-Reactive Protein Total Protein Albumin Arterial Blood Glucose Urine WBC (Auto) 06/28/21 06/29/21 06/29/21 23:32 05:13 05:13 WBC RBC Hgb Hct MCHC Lymph % (Auto) Mccone % (Auto) Lymph # (Auto) Mccone # (Auto) Seg Neutrophils % Seg Neuts % (Manual) Lymphocytes % (Manual) Seg Neutrophils # Seg Neutrophils # Man Lymphocytes # (Manual) PT INR D-Dimer Heparin Anti-Xa Level 0.13 L ABG pH POC ABG pCO2 ABG pO2 ABG HCO3 ABG O2 Saturation ABG Base Excess ABG Hemoglobin ABG Oxyhemoglobin ABG Sodium ABG Chloride ABG Glucose Oxyhemoglobin Sodium 133 L Potassium Chloride Carbon Dioxide BUN 34 H Creatinine 0.5 L Glucose 186 H POC Glucose 236 H Hemoglobin A1c Lactic Acid Uric Acid Calcium Phosphorus 2.20 L D Magnesium Alkaline Phosphatase 31 L Lactate Dehydrogenase C-Reactive Protein Total Protein 3.3 L D Albumin 1.9 L Arterial Blood Glucose Urine WBC (Auto) 06/29/21 06/29/21 06/29/21 06:00 06:00 06:00 WBC 12.7 H RBC 3.36 L Hgb 10.0 L Hct MCHC Lymph % (Auto) 9.5 L Mccone % (Auto) 8.6 H Lymph # (Auto) Mccone # (Auto) 1.1 H Seg Neutrophils % 80.4 H Seg Neuts % (Manual) Lymphocytes % (Manual) Seg Neutrophils # 10.2 H Seg Neutrophils # Man Lymphocytes # (Manual) PT INR D-Dimer Heparin Anti-Xa Level 0.22 L ABG pH POC ABG pCO2 ABG pO2 ABG HCO3 ABG O2 Saturation ABG Base Excess ABG Hemoglobin ABG Oxyhemoglobin ABG Sodium ABG Chloride ABG Glucose Oxyhemoglobin Sodium 134 L Potassium Chloride 97.8 L Carbon Dioxide BUN 33 H Creatinine Glucose 189 H POC Glucose Hemoglobin A1c Lactic Acid Uric Acid Calcium Phosphorus Magnesium Alkaline Phosphatase Lactate Dehydrogenase C-Reactive Protein Total Protein Albumin Arterial Blood Glucose Urine WBC (Auto) 06/29/21 06/29/21 06/30/21 12:02 17:20 04:20 WBC 11.9 H RBC 3.37 L Hgb Hct MCHC Lymph % (Auto) 8.6 L Mccone % (Auto) 8.3 H Lymph # (Auto) 1.0 L Mccone # (Auto) 1.0 H Seg Neutrophils % 82.6 H Seg Neuts % (Manual) Lymphocytes % (Manual) Seg Neutrophils # 9.8 H Seg Neutrophils # Man Lymphocytes # (Manual) PT INR D-Dimer Heparin Anti-Xa Level ABG pH POC ABG pCO2 ABG pO2 ABG HCO3 ABG O2 Saturation ABG Base Excess ABG Hemoglobin ABG Oxyhemoglobin ABG Sodium ABG Chloride ABG Glucose Oxyhemoglobin Sodium Potassium Chloride Carbon Dioxide BUN Creatinine Glucose POC Glucose 249 H 172 H Hemoglobin A1c Lactic Acid Uric Acid Calcium Phosphorus Magnesium Alkaline Phosphatase Lactate Dehydrogenase C-Reactive Protein Total Protein Albumin Arterial Blood Glucose Urine WBC (Auto) 06/30/21 06/30/21 07/01/21 04:20 04:20 04:00 WBC RBC Hgb Hct MCHC Lymph % (Auto) Mccone % (Auto) Lymph # (Auto) Mccone # (Auto) Seg Neutrophils % Seg Neuts % (Manual) Lymphocytes % (Manual) Seg Neutrophils # Seg Neutrophils # Man Lymphocytes # (Manual) PT INR D-Dimer Heparin Anti-Xa Level 0.29 L 0.26 L ABG pH POC ABG pCO2 ABG pO2 ABG HCO3 ABG O2 Saturation ABG Base Excess ABG Hemoglobin ABG Oxyhemoglobin ABG Sodium ABG Chloride ABG Glucose Oxyhemoglobin Sodium Potassium Chloride Carbon Dioxide BUN 30 H Creatinine 0.5 L Glucose POC Glucose Hemoglobin A1c Lactic Acid Uric Acid Calcium Phosphorus Magnesium Alkaline Phosphatase Lactate Dehydrogenase C-Reactive Protein Total Protein Albumin Arterial Blood Glucose Urine WBC (Auto) 07/01/21 07/01/21 07/01/21 04:00 06:00 08:33 WBC RBC Hgb Hct MCHC Lymph % (Auto) Mccone % (Auto) Lymph # (Auto) Mccone # (Auto) Seg Neutrophils % Seg Neuts % (Manual) Lymphocytes % (Manual) Seg Neutrophils # Seg Neutrophils # Man Lymphocytes # (Manual) PT INR D-Dimer Heparin Anti-Xa Level ABG pH POC ABG pCO2 ABG pO2 ABG HCO3 ABG O2 Saturation ABG Base Excess ABG Hemoglobin ABG Oxyhemoglobin ABG Sodium ABG Chloride ABG Glucose Oxyhemoglobin Sodium Potassium Chloride Carbon Dioxide BUN 25 H Creatinine 0.4 L Glucose POC Glucose 69 L 131 H Hemoglobin A1c Lactic Acid Uric Acid Calcium Phosphorus Magnesium Alkaline Phosphatase Lactate Dehydrogenase C-Reactive Protein Total Protein Albumin Arterial Blood Glucose Urine WBC (Auto) 07/01/21 07/01/21 07/02/21 16:59 Unknown 05:23 WBC 12.2 H RBC 3.57 L Hgb Hct MCHC Lymph % (Auto) Mccone % (Auto) Lymph # (Auto) Mccone # (Auto) Seg Neutrophils % Seg Neuts % (Manual) Lymphocytes % (Manual) Seg Neutrophils # Seg Neutrophils # Man Lymphocytes # (Manual) PT INR D-Dimer Heparin Anti-Xa Level 0.29 L ABG pH POC ABG pCO2 ABG pO2 ABG HCO3 ABG O2 Saturation ABG Base Excess ABG Hemoglobin ABG Oxyhemoglobin ABG Sodium ABG Chloride ABG Glucose Oxyhemoglobin Sodium Potassium Chloride Carbon Dioxide BUN Creatinine Glucose POC Glucose 109 H Hemoglobin A1c Lactic Acid Uric Acid Calcium Phosphorus Magnesium Alkaline Phosphatase Lactate Dehydrogenase C-Reactive Protein Total Protein Albumin Arterial Blood Glucose Urine WBC (Auto) 07/02/21 07/02/21 07/02/21 05:23 05:23 05:29 WBC RBC 3.35 L Hgb Hct MCHC Lymph % (Auto) Mccone % (Auto) Lymph # (Auto) Mccone # (Auto) Seg Neutrophils % Seg Neuts % (Manual) Lymphocytes % (Manual) Seg Neutrophils # Seg Neutrophils # Man Lymphocytes # (Manual) PT INR D-Dimer Heparin Anti-Xa Level ABG pH POC ABG pCO2 ABG pO2 ABG HCO3 ABG O2 Saturation ABG Base Excess ABG Hemoglobin ABG Oxyhemoglobin ABG Sodium ABG Chloride ABG Glucose Oxyhemoglobin Sodium Potassium Chloride Carbon Dioxide 33 H BUN 21 H Creatinine 0.5 L Glucose 122 H POC Glucose 118 H Hemoglobin A1c Lactic Acid Uric Acid Calcium Phosphorus Magnesium Alkaline Phosphatase Lactate Dehydrogenase C-Reactive Protein Total Protein Albumin Arterial Blood Glucose Urine WBC (Auto) 07/02/21 07/02/21 07/02/21 11:38 18:08 23:27 WBC RBC Hgb Hct MCHC Lymph % (Auto) Mccone % (Auto) Lymph # (Auto) Mccone # (Auto) Seg Neutrophils % Seg Neuts % (Manual) Lymphocytes % (Manual) Seg Neutrophils # Seg Neutrophils # Man Lymphocytes # (Manual) PT INR D-Dimer Heparin Anti-Xa Level ABG pH POC ABG pCO2 ABG pO2 ABG HCO3 ABG O2 Saturation ABG Base Excess ABG Hemoglobin ABG Oxyhemoglobin ABG Sodium ABG Chloride ABG Glucose Oxyhemoglobin Sodium Potassium Chloride Carbon Dioxide BUN Creatinine Glucose POC Glucose 177 H 153 H 143 H Hemoglobin A1c Lactic Acid Uric Acid Calcium Phosphorus Magnesium Alkaline Phosphatase Lactate Dehydrogenase C-Reactive Protein Total Protein Albumin Arterial Blood Glucose Urine WBC (Auto) 07/03/21 07/03/21 07/03/21 04:09 07:57 10:59 WBC RBC Hgb Hct MCHC Lymph % (Auto) Mccone % (Auto) Lymph # (Auto) Mccone # (Auto) Seg Neutrophils % Seg Neuts % (Manual) Lymphocytes % (Manual) Seg Neutrophils # Seg Neutrophils # Man Lymphocytes # (Manual) PT INR D-Dimer Heparin Anti-Xa Level 1.90 H ABG pH POC ABG pCO2 ABG pO2 ABG HCO3 ABG O2 Saturation ABG Base Excess ABG Hemoglobin ABG Oxyhemoglobin ABG Sodium ABG Chloride ABG Glucose Oxyhemoglobin Sodium Potassium Chloride Carbon Dioxide BUN Creatinine Glucose POC Glucose 158 H 175 H Hemoglobin A1c Lactic Acid Uric Acid Calcium Phosphorus Magnesium Alkaline Phosphatase Lactate Dehydrogenase C-Reactive Protein Total Protein Albumin Arterial Blood Glucose Urine WBC (Auto) 07/03/21 07/03/21 07/04/21 15:40 23:45 04:52 WBC RBC Hgb Hct MCHC Lymph % (Auto) Mccone % (Auto) Lymph # (Auto) Mccone # (Auto) Seg Neutrophils % Seg Neuts % (Manual) Lymphocytes % (Manual) Seg Neutrophils # Seg Neutrophils # Man Lymphocytes # (Manual) PT INR D-Dimer Heparin Anti-Xa Level ABG pH POC ABG pCO2 ABG pO2 ABG HCO3 ABG O2 Saturation ABG Base Excess ABG Hemoglobin ABG Oxyhemoglobin ABG Sodium ABG Chloride ABG Glucose Oxyhemoglobin Sodium Potassium Chloride Carbon Dioxide BUN Creatinine Glucose POC Glucose 209 H 168 H 155 H Hemoglobin A1c Lactic Acid Uric Acid Calcium Phosphorus Magnesium Alkaline Phosphatase Lactate Dehydrogenase C-Reactive Protein Total Protein Albumin Arterial Blood Glucose Urine WBC (Auto) 07/04/21 07/04/21 07/04/21 05:26 05:26 12:01 WBC RBC 3.32 L Hgb 9.9 L Hct MCHC Lymph % (Auto) Mccone % (Auto) Lymph # (Auto) Mccone # (Auto) Seg Neutrophils % Seg Neuts % (Manual) Lymphocytes % (Manual) Seg Neutrophils # Seg Neutrophils # Man Lymphocytes # (Manual) PT INR D-Dimer Heparin Anti-Xa Level ABG pH POC ABG pCO2 ABG pO2 ABG HCO3 ABG O2 Saturation ABG Base Excess ABG Hemoglobin ABG Oxyhemoglobin ABG Sodium ABG Chloride ABG Glucose Oxyhemoglobin Sodium Potassium Chloride Carbon Dioxide 36 H BUN 35 H Creatinine 0.5 L Glucose 149 H POC Glucose 184 H Hemoglobin A1c Lactic Acid Uric Acid Calcium Phosphorus Magnesium Alkaline Phosphatase Lactate Dehydrogenase C-Reactive Protein Total Protein Albumin Arterial Blood Glucose Urine WBC (Auto) 07/04/21 07/04/21 07/05/21 17:14 22:15 06:54 WBC RBC Hgb Hct MCHC Lymph % (Auto) Mccone % (Auto) Lymph # (Auto) Mccone # (Auto) Seg Neutrophils % Seg Neuts % (Manual) Lymphocytes % (Manual) Seg Neutrophils # Seg Neutrophils # Man Lymphocytes # (Manual) PT INR D-Dimer Heparin Anti-Xa Level ABG pH POC ABG pCO2 ABG pO2 ABG HCO3 ABG O2 Saturation ABG Base Excess ABG Hemoglobin ABG Oxyhemoglobin ABG Sodium ABG Chloride ABG Glucose Oxyhemoglobin Sodium Potassium Chloride Carbon Dioxide BUN Creatinine Glucose POC Glucose 151 H 189 H 192 H Hemoglobin A1c Lactic Acid Uric Acid Calcium Phosphorus Magnesium Alkaline Phosphatase Lactate Dehydrogenase C-Reactive Protein Total Protein Albumin Arterial Blood Glucose Urine WBC (Auto) 07/05/21 07/05/21 07/05/21 11:14 17:15 21:49 WBC RBC Hgb Hct MCHC Lymph % (Auto) Mccone % (Auto) Lymph # (Auto) Mccone # (Auto) Seg Neutrophils % Seg Neuts % (Manual) Lymphocytes % (Manual) Seg Neutrophils # Seg Neutrophils # Man Lymphocytes # (Manual) PT INR D-Dimer Heparin Anti-Xa Level ABG pH POC ABG pCO2 ABG pO2 ABG HCO3 ABG O2 Saturation ABG Base Excess ABG Hemoglobin ABG Oxyhemoglobin ABG Sodium ABG Chloride ABG Glucose Oxyhemoglobin Sodium Potassium Chloride Carbon Dioxide BUN Creatinine Glucose POC Glucose 187 H 212 H 199 H Hemoglobin A1c Lactic Acid Uric Acid Calcium Phosphorus Magnesium Alkaline Phosphatase Lactate Dehydrogenase C-Reactive Protein Total Protein Albumin Arterial Blood Glucose Urine WBC (Auto) 07/06/21 07/06/21 07/06/21 06:15 07:04 11:58 WBC RBC 3.04 L Hgb 9.1 L Hct 29.0 L MCHC Lymph % (Auto) Mccone % (Auto) Lymph # (Auto) Mccone # (Auto) Seg Neutrophils % Seg Neuts % (Manual) Lymphocytes % (Manual) Seg Neutrophils # Seg Neutrophils # Man Lymphocytes # (Manual) PT INR D-Dimer Heparin Anti-Xa Level ABG pH POC ABG pCO2 ABG pO2 ABG HCO3 ABG O2 Saturation ABG Base Excess ABG Hemoglobin ABG Oxyhemoglobin ABG Sodium ABG Chloride ABG Glucose Oxyhemoglobin Sodium Potassium Chloride Carbon Dioxide BUN Creatinine Glucose POC Glucose 235 H 228 H Hemoglobin A1c Lactic Acid Uric Acid Calcium Phosphorus Magnesium Alkaline Phosphatase Lactate Dehydrogenase C-Reactive Protein Total Protein Albumin Arterial Blood Glucose Urine WBC (Auto) 07/06/21 07/06/21 07/06/21 16:00 16:47 23:19 WBC RBC Hgb Hct MCHC Lymph % (Auto) Mccone % (Auto) Lymph # (Auto) Mccone # (Auto) Seg Neutrophils % Seg Neuts % (Manual) Lymphocytes % (Manual) Seg Neutrophils # Seg Neutrophils # Man Lymphocytes # (Manual) PT INR D-Dimer Heparin Anti-Xa Level ABG pH POC ABG pCO2 ABG pO2 69.0 L ABG HCO3 46.7 H ABG O2 Saturation ABG Base Excess 19.7 H ABG Hemoglobin 8.1 L ABG Oxyhemoglobin ABG Sodium ABG Chloride ABG Glucose Oxyhemoglobin 93.4 L Sodium Potassium Chloride Carbon Dioxide BUN Creatinine Glucose POC Glucose 272 H 224 H Hemoglobin A1c Lactic Acid Uric Acid Calcium Phosphorus Magnesium Alkaline Phosphatase Lactate Dehydrogenase C-Reactive Protein Total Protein Albumin Arterial Blood Glucose Urine WBC (Auto) 07/07/21 07/07/21 07/07/21 11:40 14:44 15:50 WBC RBC Hgb Hct MCHC Lymph % (Auto) Mccone % (Auto) Lymph # (Auto) Mccone # (Auto) Seg Neutrophils % Seg Neuts % (Manual) Lymphocytes % (Manual) Seg Neutrophils # Seg Neutrophils # Man Lymphocytes # (Manual) PT INR D-Dimer Heparin Anti-Xa Level ABG pH POC ABG pCO2 ABG pO2 ABG HCO3 ABG O2 Saturation ABG Base Excess ABG Hemoglobin ABG Oxyhemoglobin ABG Sodium ABG Chloride ABG Glucose Oxyhemoglobin Sodium 152 H D Potassium Chloride Carbon Dioxide 45 H* D BUN 61 H Creatinine 0.5 L Glucose 224 H POC Glucose 174 H 210 H Hemoglobin A1c Lactic Acid Uric Acid Calcium Phosphorus Magnesium Alkaline Phosphatase Lactate Dehydrogenase C-Reactive Protein Total Protein Albumin Arterial Blood Glucose Urine WBC (Auto) 07/07/21 07/08/21 07/08/21 23:09 04:57 05:34 WBC RBC 2.91 L Hgb 8.8 L Hct 27.8 L MCHC Lymph % (Auto) Mccone % (Auto) Lymph # (Auto) Mccone # (Auto) Seg Neutrophils % Seg Neuts % (Manual) Lymphocytes % (Manual) Seg Neutrophils # Seg Neutrophils # Man Lymphocytes # (Manual) PT INR D-Dimer Heparin Anti-Xa Level ABG pH POC ABG pCO2 ABG pO2 ABG HCO3 ABG O2 Saturation ABG Base Excess ABG Hemoglobin ABG Oxyhemoglobin ABG Sodium ABG Chloride ABG Glucose Oxyhemoglobin Sodium Potassium Chloride Carbon Dioxide BUN Creatinine Glucose POC Glucose 188 H 156 H Hemoglobin A1c Lactic Acid Uric Acid Calcium Phosphorus Magnesium Alkaline Phosphatase Lactate Dehydrogenase C-Reactive Protein Total Protein Albumin Arterial Blood Glucose Urine WBC (Auto) 07/08/21 07/08/21 07/08/21 05:34 11:20 16:25 WBC RBC Hgb Hct MCHC Lymph % (Auto) Mccone % (Auto) Lymph # (Auto) Mccone # (Auto) Seg Neutrophils % Seg Neuts % (Manual) Lymphocytes % (Manual) Seg Neutrophils # Seg Neutrophils # Man Lymphocytes # (Manual) PT INR D-Dimer Heparin Anti-Xa Level ABG pH POC ABG pCO2 ABG pO2 ABG HCO3 ABG O2 Saturation ABG Base Excess ABG Hemoglobin ABG Oxyhemoglobin ABG Sodium ABG Chloride ABG Glucose Oxyhemoglobin Sodium 154 H Potassium Chloride Carbon Dioxide 44 H* BUN 55 H Creatinine 0.5 L Glucose 202 H POC Glucose 186 H 169 H Hemoglobin A1c Lactic Acid Uric Acid Calcium 10.4 H Phosphorus Magnesium Alkaline Phosphatase Lactate Dehydrogenase C-Reactive Protein Total Protein Albumin Arterial Blood Glucose Urine WBC (Auto) 07/08/21 07/09/21 07/09/21 23:49 05:08 10:18 WBC RBC 2.59 L Hgb 7.6 L Hct 24.9 L MCHC Lymph % (Auto) Mccone % (Auto) Lymph # (Auto) Mccone # (Auto) Seg Neutrophils % Seg Neuts % (Manual) Lymphocytes % (Manual) Seg Neutrophils # Seg Neutrophils # Man Lymphocytes # (Manual) PT INR D-Dimer Heparin Anti-Xa Level ABG pH POC ABG pCO2 ABG pO2 ABG HCO3 ABG O2 Saturation ABG Base Excess ABG Hemoglobin ABG Oxyhemoglobin ABG Sodium ABG Chloride ABG Glucose Oxyhemoglobin Sodium Potassium Chloride Carbon Dioxide BUN Creatinine Glucose POC Glucose 182 H 161 H Hemoglobin A1c Lactic Acid Uric Acid Calcium Phosphorus Magnesium Alkaline Phosphatase Lactate Dehydrogenase C-Reactive Protein Total Protein Albumin Arterial Blood Glucose Urine WBC (Auto) 07/09/21 10:18 WBC RBC Hgb Hct MCHC Lymph % (Auto) Mccone % (Auto) Lymph # (Auto) Mccone # (Auto) Seg Neutrophils % Seg Neuts % (Manual) Lymphocytes % (Manual) Seg Neutrophils # Seg Neutrophils # Man Lymphocytes # (Manual) PT INR D-Dimer Heparin Anti-Xa Level ABG pH POC ABG pCO2 ABG pO2 ABG HCO3 ABG O2 Saturation ABG Base Excess ABG Hemoglobin ABG Oxyhemoglobin ABG Sodium ABG Chloride ABG Glucose Oxyhemoglobin Sodium 152 H Potassium Chloride Carbon Dioxide 46 H* BUN 53 H Creatinine 0.5 L Glucose 211 H POC Glucose Hemoglobin A1c Lactic Acid Uric Acid Calcium 10.6 H Phosphorus Magnesium Alkaline Phosphatase Lactate Dehydrogenase C-Reactive Protein Total Protein Albumin Arterial Blood Glucose Urine WBC (Auto) Allied health notes reviewed: nursing
--- NOTE | 2021-07-09 17:24 | Progress Note ---
Assessment and Plan Assessment and plan: --Acute hypercapnic respiratory failure/nasal cannula oxygen/intermittent BiPAP Currently on nasal cannula at 5 L/min will wean as tolerated and BiPAP keep SpO2 >92%, -BiPAP at night likely 2/2 to CAP, Wean as tolerated Home O2 evaluation Wean off BiPAP as tolerated --Atrial fibrillation rate controlled -continue metoprolol and eliquis -Cardiology following, Continue current management --Hypertension/well-controlled Continue current antihypertensives As needed medications --Type 2 diabetes Accu-Chek sliding scale coverage ADA diet Long-acting insulin as needed Resolved problems --Severe hyponatremia- resolved ---Acute metabolic encephalopathy- likely 2/2 hyponatremia ---Urinary tract infection --Community-acquired pneumonia-s/p abx Disposition Plan: Continue medical management Continue to wean off a.m. dose a.m. dose. Amaryl moderate she gets awake because she is BiPAP Home O2 evaluation, home BiPAP at discharge We'll closely monitor the patient and adjust management as needed Plan of care reviewed with the patient and her nurse Also discussed the DC planning with case management group Consults and recommendations noted and appreciated Continue current management Home O2 evaluation and BiPAP at night and as needed during daytime Case management to assist with home O2/BiPAP at discharge History Interval history: I have no new events reported by the nursing staff seen and examined the patient at the bedside Patient's chart and medications reviewed No new events reported by the nursing staff Patient remains on BiPAP Hospitalist Physical - Constitutional Vitals: Temp Pulse Resp BP Pulse Ox 122.0 F H 103 H 17 109/40 98 07/09/21 03:49 07/09/21 15:14 07/09/21 15:14 07/09/21 03:49 07/09/21 15:14 General appearance: Present: no acute distress, well-nourished, obese (Morbidly) - EENT Eyes: Present: PERRL, EOM intact - Neck Neck: Present: supple, normal ROM (No no no no" pain) - Respiratory Respiratory effort: normal Respiratory: bilateral: diminished, negative: rales, rhonchi, wheezing - Cardiovascular Rhythm: regular Heart Sounds: Present: S1 & S2 - Extremities Extremities: no ischemia, No edema - Abdominal General gastrointestinal: soft, non-tender, non-distended, normal bowel sounds - Integumentary Integumentary: Present: clear, warm - Psychiatric Psychiatric: appropriate mood/affect, cooperative - Neurologic Neurologic: CNII-XII intact, moves all extremities HEART Score - HEART Score Troponin: Troponin T < 0.010 ng/mL (0.00-0.029) 06/22/21 07:58 Results - Labs CBC & Chem 7: 07/09/21 10:18 07/09/21 10:18 Labs: Laboratory Last Values WBC 9.7 K/mm3 (4.5-11.0) 07/09/21 10:18 RBC 2.59 M/mm3 (3.65-5.03) L 07/09/21 10:18 Hgb 7.6 gm/dl (10.1-14.3) L 07/09/21 10:18 Hct 24.9 % (30.3-42.9) L 07/09/21 10:18 MCV 96 fl (79-97) 07/09/21 10:18 MCH 30 pg (28-32) 07/09/21 10:18 MCHC 31 % (30-34) 07/09/21 10:18 RDW 14.7 % (13.2-15.2) 07/09/21 10:18 Plt Count 304 K/mm3 (140-440) 07/09/21 10:18 Lymph % (Auto) 8.6 % (13.4-35.0) L 06/30/21 04:20 [place]oca % (Auto) 8.3 % (0.0-7.3) H 06/30/21 04:20 Eos % (Auto) 0.5 % (0.0-4.3) 06/30/21 04:20 Baso % (Auto) 0.0 % (0.0-1.8) 06/30/21 04:20 Lymph # (Auto) 1.0 K/mm3 (1.2-5.4) L 06/30/21 04:20 [place]oca # (Auto) 1.0 K/mm3 (0.0-0.8) H 06/30/21 04:20 Eos # (Auto) 0.1 K/mm3 (0.0-0.4) 06/30/21 04:20 Baso # (Auto) 0.0 K/mm3 (0.0-0.1) 06/30/21 04:20 Add Manual Diff Complete 06/25/21 22:55 Total Counted 100 06/25/21 22:55 Seg Neutrophils % 82.6 % (40.0-70.0) H 06/30/21 04:20 Seg Neuts % (Manual) 91.0 % (40.0-70.0) H 06/25/21 22:55 Lymphocytes % (Manual) 6.0 % (13.4-35.0) L 06/25/21 22:55 Monocytes % (Manual) 3.0 % (0.0-7.3) 06/25/21 22:55 Metamyelocytes % 1.0 % 06/24/21 05:33 Nucleated RBC % Not Reportable 06/25/21 22:55 Seg Neutrophils # 9.8 K/mm3 (1.8-7.7) H 06/30/21 04:20 Seg Neutrophils # Man 13.5 K/mm3 (1.8-7.7) H 06/25/21 22:55 Band Neutrophils # 0.0 K/mm3 06/25/21 22:55 Lymphocytes # (Manual) 0.9 K/mm3 (1.2-5.4) L 06/25/21 22:55 Abs React Lymphs (Man) 0.0 K/mm3 06/25/21 22:55 Monocytes # (Manual) 0.4 K/mm3 (0.0-0.8) 06/25/21 22:55 Eosinophils # (Manual) 0.0 K/mm3 (0.0-0.4) 06/25/21 22:55 Basophils # (Manual) 0.0 K/mm3 (0.0-0.1) 06/25/21 22:55 Metamyelocytes # 0.0 K/mm3 06/25/21 22:55 Myelocytes # 0.0 K/mm3 06/25/21 22:55 Promyelocytes # 0.0 K/mm3 06/25/21 22:55 Blast Cells # 0.0 K/mm3 06/25/21 22:55 WBC Morphology Not Reportable 06/25/21 22:55 Hypersegmented Neuts Not Reportable 06/25/21 22:55 Hyposegmented Neuts Not Reportable 06/25/21 22:55 Hypogranular Neuts Not Reportable 06/25/21 22:55 Smudge Cells Not Reportable 06/25/21 22:55 Toxic Granulation Not Reportable 06/25/21 22:55 Toxic Vacuolation Not Reportable 06/25/21 22:55 Dohle Bodies Not Reportable 06/25/21 22:55 Pelger-Huet Anomaly Not Reportable 06/25/21 22:55 Otf Rods Not Reportable 06/25/21 22:55 Platelet Estimate Consistent w auto 06/25/21 22:55 Clumped Platelets Not Reportable 06/25/21 22:55 Plt Clumps, EDTA Not Reportable 06/25/21 22:55 Large Platelets Not Reportable 06/25/21 22:55 Giant Platelets Not Reportable 06/25/21 22:55 Platelet Satelliting Not Reportable 06/25/21 22:55 Plt Morphology Comment Not Reportable 06/25/21 22:55 RBC Morphology Normal 06/25/21 22:55 Dimorphic RBCs Not Reportable 06/25/21 22:55 Polychromasia Not Reportable 06/25/21 22:55 Hypochromasia Not Reportable 06/25/21 22:55 Poikilocytosis Not Reportable 06/25/21 22:55 Anisocytosis Not Reportable 06/25/21 22:55 Microcytosis Not Reportable 06/25/21 22:55 Macrocytosis Not Reportable 06/25/21 22:55 Spherocytes Not Reportable 06/25/21 22:55 Pappenheimer Bodies Not Reportable 06/25/21 22:55 Sickle Cells Not Reportable 06/25/21 22:55 Target Cells Not Reportable 06/25/21 22:55 Tear Drop Cells Not Reportable 06/25/21 22:55 Ovalocytes Not Reportable 06/25/21 22:55 Helmet Cells Not Reportable 06/25/21 22:55 [place] Bodies Not Reportable 06/25/21 22:55 [place] Rings Not Reportable 06/25/21 22:55 William Cells Not Reportable 06/25/21 22:55 Bite Cells Not Reportable 06/25/21 22:55 Crenated Cell Not Reportable 06/25/21 22:55 Elliptocytes Not Reportable 06/25/21 22:55 Acanthocytes (Spur) Not Reportable 06/25/21 22:55 Rouleaux Not Reportable 06/25/21 22:55 Hemoglobin C Crystals Not Reportable 06/25/21 22:55 Schistocytes Not Reportable 06/25/21 22:55 Malaria parasites Not Reportable 06/25/21 22:55 Steve Bodies Not Reportable 06/25/21 22:55 Hem Pathologist Commnt No 06/25/21 22:55 PT 13.0 Sec. (12.2-14.9) 07/02/21 05:30 INR 0.88 (0.87-1.13) 07/02/21 05:30 APTT TNR 07/02/21 05:30 Thrombin Time 15.9 Sec. (15.1-19.6) 06/22/21 07:58 D-Dimer 390 ng/mlDDU (0-234) H 06/22/21 08:56 Heparin Anti-Xa Level 1.90 U.I./ml (0.3-0.7) H 07/03/21 04:09 ABG pH 7.415 pH Units (7.350-7.450) 07/06/21 16:00 POC ABG pCO2 38.0 mmHg (32.0-48.0) 06/27/21 05:06 ABG pCO2 74.5 mm Hg 07/06/21 16:00 POC ABG pO2 93.6 mmHg (83-108) 06/27/21 05:06 ABG pO2 69.0 mm Hg (80.0-90.0) L 07/06/21 16:00 POC ABG HCO3 27.7 06/27/21 05:06 ABG HCO3 46.7 mmol/L (20.0-26.0) H 07/06/21 16:00 ABG O2 Saturation 95.2 % (95.0-99.0) 07/06/21 16:00 ABG O2 Content 10.8 (0.0-44) 07/06/21 16:00 POC ABG Base Excess 4.0 06/27/21 05:06 ABG Base Excess 19.7 mmol/L (-2.0-3.0) H 07/06/21 16:00 ABG Hemoglobin 8.1 gm/dl (12.0-16.0) L 07/06/21 16:00 ABG Oxyhemoglobin 96.8 (94-98) 06/27/21 05:06 ABG Carboxyhemoglobin 1.7 % (0.0-5.0) 07/06/21 16:00 ABG Methemoglobin 0.2 % (0.0-1.5) 07/06/21 16:00 ABG Sodium 123.5 mmol/L (136.0-145.0) L 06/27/21 05:06 ABG Potassium 3.7 mmol/L (3.40-4.50) 06/27/21 05:06 ABG Chloride 91.0 mmol/L (98-107) L 06/27/21 05:06 ABG Glucose 328 mg/dL (65-95) H 06/27/21 05:06 Oxyhemoglobin 93.4 % (95.0-99.0) L 07/06/21 16:00 Carboxyhemoglobin 0.9 (0.5-1.5) 06/27/21 05:06 FiO2 40 % 07/06/21 16:00 FiO2 % 40.0 06/27/21 05:06 Sodium 152 mmol/L (137-145) H 07/09/21 10:18 Potassium 3.6 mmol/L (3.6-5.0) 07/09/21 10:18 Chloride 100.9 mmol/L (98-107) 07/09/21 10:18 Carbon Dioxide 46 mmol/L (22-30) H* 07/09/21 10:18 Anion Gap 9 mmol/L 07/09/21 10:18 BUN 53 mg/dL (7-17) H 07/09/21 10:18 Creatinine 0.5 mg/dL (0.6-1.2) L 07/09/21 10:18 Estimated GFR > 60 ml/min 07/09/21 10:18 BUN/Creatinine Ratio 106 % 07/09/21 10:18 Glucose 211 mg/dL (65-100) H 07/09/21 10:18 POC Glucose 189 mg/dL (70-105) H 07/09/21 16:53 Hemoglobin A1c 6.6 % (4-6) H 06/23/21 05:29 Osmolality 240 Mosm/kg 06/22/21 23:24 Lactic Acid 1.60 mmol/L (0.7-2.0) 06/25/21 22:55 Uric Acid 3.2 mg/dL (3.5-7.6) L 06/23/21 05:29 Calcium 10.6 mg/dL (8.4-10.2) H 07/09/21 10:18 Phosphorus 3.10 mg/dL (2.5-4.5) 07/02/21 05:23 Magnesium 1.80 mg/dL (1.7-2.3) 07/02/21 05:23 Ferritin 102.1 ng/mL (10.0-200.0) 06/22/21 08:56 Total Bilirubin 0.30 mg/dL (0.1-1.2) 06/29/21 05:13 Direct Bilirubin < 0.2 mg/dL (0-0.2) 06/26/21 04:32 Indirect Bilirubin 0.1 mg/dL 06/26/21 04:32 AST 12 units/L (5-40) 06/29/21 05:13 ALT 9 units/L (7-56) 06/29/21 05:13 Alkaline Phosphatase 31 units/L (35-129) L 06/29/21 05:13 Lactate Dehydrogenase 220 units/L (91-180) H 06/22/21 08:56 Troponin T < 0.010 ng/mL (0.00-0.029) 06/22/21 07:58 C-Reactive Protein 5.40 mg/dL (0.00-1.30) H 06/22/21 08:56 Total Protein 3.3 g/dL (6.3-8.2) L D 06/29/21 05:13 Albumin 1.9 g/dL (3.9-5) L 06/29/21 05:13 Albumin/Globulin Ratio 1.4 % 06/29/21 05:13 Procalcitonin < 0.05 ng/mL (<0.15) 06/22/21 08:56 TSH 1.070 mlU/mL (0.270-4.200) 06/22/21 07:58 Total Cortisol 36.4 mcg/dL () 06/26/21 16:06 Arterial Blood Glucose 328 mg/dL (65-95) H 06/27/21 05:06 Arterial Blood Ionized Calcium 4.9 mg/dL (4.6-5.3) 06/27/21 05:06 Urine Color Yellow (Yellow) 06/26/21 09:48 Urine Turbidity Slightly-cloudy (Clear) 06/26/21 09:48 Urine pH 6.0 (5.0-7.0) 06/26/21 09:48 Ur Specific [place] 1.014 (1.003-1.030) 06/26/21 09:48 Urine Protein 30 mg/dl mg/dL (Negative) 06/26/21 09:48 Urine Glucose (UA) 50 mg/dL (Negative) 06/26/21 09:48 Urine Ketones 20 mg/dL (Negative) 06/26/21 09:48 Urine Blood Mod (Negative) 06/26/21 09:48 Urine Nitrite Neg (Negative) 06/26/21 09:48 Urine Bilirubin Neg (Negative) 06/26/21 09:48 Urine Urobilinogen < 2.0 mg/dL (<2.0) 06/26/21 09:48 Ur Leukocyte Esterase Mod (Negative) 06/26/21 09:48 Urine WBC (Auto) 69.0 /HPF (0.0-6.0) H 06/26/21 09:48 Urine RBC (Auto) 29.0 /HPF (0.0-6.0) 06/26/21 09:48 U Epithel Cells (Auto) 1.0 /HPF (0-13.0) 06/26/21 09:48 Urine Bacteria (Auto) 4+ /HPF (Negative) 06/26/21 09:48 Ur Transition Epith Cell 1 /HPF 06/22/21 11:47 Hyaline Casts 5 /LPF 06/22/21 11:47 Urine Mucus Few /HPF 06/26/21 09:48 Urine Yeast (Budding) 3+ /HPF 06/26/21 09:48 Urine Osmolality 571 Mosm/kg 06/22/21 11:47 Urine Sodium 25 mmol/L 06/22/21 11:47 Coronavirus (PCR) Negative (Negative) 07/08/21 Unknown Microbiology: Microbiology 06/26/21 09:48 Urine,Clean Catch Urine Culture - Final Martines/IV: Voiding Method External Female Catheter Active Medications - Current Medications Current Medications: Generic Name Dose Route Start Last Admin Trade Name Freq PRN Reason Stop Dose Admin Acetaminophen 650 mg 06/22/21 22:21 07/08/21 12:08 Acetaminophen 325 Mg Tab PO 650 mg Q4H PRN Administration Pain MILD(1-3)/Fever >100.5/NAVA Lipase/Protease/Amylase 1 each 06/29/21 16:20 Lipase 10,500/Protease 25,000/Amylase 43,750 (Units) Dr Emanuel FEEDTUBE PRN PRN For Clogged Feeding Tube Clopidogrel Bisulfate 75 mg 06/23/21 10:00 07/09/21 11:45 Clopidogrel 75 Mg Tab PO 75 mg DAILY JUDY Administration Docusate Sodium 100 mg 06/25/21 22:00 07/09/21 11:46 Docusate Sodium 100 Mg/10 Ml Oral Liqd PO 100 mg BID JUDY Administration Famotidine 20 mg 06/29/21 22:00 07/09/21 11:45 Famotidine 20 Mg Tab FEEDTUBE 20 mg BID JUDY Administration Insulin Human Lispro 0 unit 06/26/21 12:00 07/09/21 05:36 Insulin Lispro 100 Unit/Ml SUB-Q 3 unit Q6HR JUDY Administration Protocol Lisinopril 10 mg 07/03/21 10:00 07/09/21 11:45 Lisinopril 10 Mg Tab PO 10 mg QDAY JUDY Administration Metoclopramide HCl 10 mg 06/22/21 22:21 Metoclopramide 10 Mg/2 Ml Inj IV Q6H PRN Nausea And Vomiting Metoprolol Tartrate 100 mg 07/03/21 10:00 07/09/21 11:45 Metoprolol Tartrate 100 Mg Tab PO 100 mg BID JUDY Administration Ondansetron HCl 4 mg 06/22/21 22:21 Ondansetron 4 Mg/2 Ml Inj IV Q8H PRN Nausea And Vomiting Pravastatin Sodium 40 mg 06/23/21 22:00 07/08/21 22:06 Pravastatin 40 Mg Tab PO 40 mg QHS JUDY Administration Simple Syrup 15 ml 06/29/21 16:20 Simple Syrup 15 Ml FEEDTUBE PRN PRN Hypoglycemia Simple Syrup 30 ml 06/29/21 16:20 Simple Syrup 15 Ml FEEDTUBE PRN PRN Hypoglycemia Sodium Bicarbonate 325 mg 06/29/21 16:20 Sodium Bicarbonate 325 Mg Tab FEEDTUBE PRN PRN For Clogged Feeding Tube Sodium Chloride 10 ml 06/23/21 10:00 07/09/21 11:46 Sodium Chloride 0.9% 10 Ml Flush Syringe IV 10 ml BID JUDY Administration Sodium Chloride 10 ml 06/22/21 22:21 Sodium Chloride 0.9% 10 Ml Flush Syringe IV PRN PRN LINE FLUSH Nutrition/Malnutrition Assess - Dietary Evaluation Nutrition/Malnutrition Findings: Nutrition Notes Start: 06/26/21 11:01 Freq: Status: Active Protocol: Document 07/08/21 17:32 VINCENZO (Rec: 07/08/21 17:40 VINCENZO [id number]) Nutrition Notes Initial or Follow up Brief Note Current Diet TF-Vital High Protein @ 50 ml/ hr (since D 06/29). Height 5 ft 5 in Weight 114.4 kg [place] Body Weight (kg) 56.81 BMI 41.9 Weight change and time frame Discrepancy of 28.217 Kg body weight change in 1 week reported. Weight Status Morbidly Obese Subjective/Other Information RD consult for routine F/U on TF tolerance. TF continues without changes, thus, well tolerated. Percent of energy/protein needs met: Prescribed Vital High Protein @ 50 ml/hr provides for energy /protein needs (1,200 Kcal/105 g) during LOS, 100% Kcal; 90% AA. Current % PO Other Minimum of two criteria No #1 Nutrition Diagnosis Inadequate oral intake Diagnosis Progress(for reassessment Continues documentation) Nutrition Intervention Nutrition Support: Continue Vital High Protein @ 50 ml/hr. Flush: 50 ml water Q 4 hr. Kcal 1,200 Protein (gm) 105 Carbohydrates (gm) 134 Fat (gm) 28 Fluid (mL) 1,003 Fiber (gm) 0 % RDI: 100% Kcal; 90% AA. Goal #1 Provide at least 75% of energy /protein needs through Enteral Feeding during LOS. Follow-Up By: 07/14/21 Additional Comments Continue monitoring TF tolerance and BM.
[2021-07-09] MEDS: PRAVASTATIN 40 MG TAB PO SCH (21:32)
[2021-07-10] MEDS: INSULIN LISPRO 100 UNIT/ML SUB-Q SCH ×4 (00:44→17:40)
[2021-07-10 05:58] LABS: Hematocrit 21.6 % (30.3-42.9); Hemoglobin 6.7 gm/dl (10.1-14.3); Mean Corpuscular HGB Conc 31 % (30-34); Mean Corpuscular Volume 97 fl (79-97); Platelet Count 279 K/mm3 (140-440); Red Blood Count 2.23 M/mm3 (3.65-5.03); Red Cell Distribution Width 14.9 % (13.2-15.2)
[2021-07-10 06:19] LABS: Blood Urea Nitrogen 59 mg/dL (7-17); Calcium 10.1 mg/dL (8.4-10.2); Hemolysis Index 2
[2021-07-10 06:30] LABS: BUN/Creatinine Ratio 118
--- NOTE | 2021-07-10 10:52 | XRay Report ---
ABDOMEN 1 VIEW(S) INDICATION / CLINICAL INFORMATION: NG tube placement. COMPARISON: 07/08/2021 FINDINGS: TUBES / LINES: The nasogastric tube terminates at the GE junction. Advancement by 10 cm is recommende d. BOWEL GAS PATTERN: No significant abnormality. FREE AIR / EXTRALUMINAL GAS: None seen. ADDITIONAL FINDINGS: An approximate 2.5 cm calcification is identified in the right upper quadrant wh ich could be biliary or renal in origin. IMPRESSION: Recommend advancement of the nasogastric tube. Signer Name: Marquis Marion Jr, MD Signed: 07/10/2021 10:48 AM Workstation Name: [id number]
--- NOTE | 2021-07-10 12:02 | Progress Note ---
Assessment and Plan Patient is 65-year-old female with a past medical history of hypertension, diabetes, and tobacco use who is brought to the ED for complaint of weakness and altered mental status that lasted 4 days prior to admission Acute Encephalopathy Symptomatic Hyponatremia-nephrology following Acute Respiratory Failure-on Bipap PNA UTI Hypotension AF with RVR (new onset) Hypokalemia (resolved) Hypomagnesemia (resolved) H/o HTN DM2 H/o Tobacco Abuse Echo reviewed - EF 60-65%, no significant valvular abnormalities. Plan: Patient is remains sinus tach rhythm with PACs Patient hemoglobin has been noted to been decreasing since admission. Continue to hold Eliquis. May consider restarting when H&H is stable Continue to metoprolol 100 mg p.o. BID and lisinopril 10 mg p.o. daily Patient seen in conjunction with Dr. Romano who agrees with this plan of care. We will continue to follow - Patient Problems (1) Atrial fibrillation with RVR Current Visit: Yes Status: Acute (2) Acute metabolic encephalopathy Current Visit: Yes Status: Acute (3) Acute hyponatremia Current Visit: Yes Status: Acute (4) Community acquired pneumonia Current Visit: Yes Status: Acute (5) Hypokalemia Current Visit: Yes Status: Acute (6) Essential (primary) hypertension Current Visit: Yes Status: Acute (7) Type 2 diabetes mellitus without complications Current Visit: Yes Status: Chronic (8) Hypomagnesemia Current Visit: Yes Status: Acute (9) UTI (urinary tract infection) Current Visit: Yes Status: Acute Qualifiers: Urinary tract infection type: acute cystitis Subjective Date of service: 07/10/21 Principal diagnosis: AF w RVR Interval history: Patient appears slightly confused. Informed by respiratory therapist patient removed BiPAP and NG tube this a.m. Patient sinus tach 100s with PACs. Objective Vital Signs Temp Pulse Pulse Pulse Pulse Resp BP 07/10/21 08:03 98.9 F 103 H 16 112/58 07/10/21 08:00 96 H 21 07/10/21 03:51 96.7 F L 95 H 16 114/49 07/10/21 03:00 96 H 07/09/21 23:12 97.1 F L 92 H 16 110/64 07/09/21 22:00 86 61 65 07/09/21 21:32 73 110/35 07/09/21 20:01 96.2 F L 73 16 110/35 07/09/21 15:29 98.1 F 97 H 20 128/60 07/09/21 15:14 103 H 17 07/09/21 14:48 100 H 18 Pulse Ox 07/10/21 08:03 93 07/10/21 08:00 97 07/10/21 03:51 93 07/10/21 03:00 07/09/21 23:12 99 07/09/21 22:00 95 07/09/21 21:32 07/09/21 20:01 80 L 07/09/21 15:29 99 07/09/21 15:14 98 07/09/21 14:48 100 - Physical Examination General: No Apparent Distress HEENT: Positive: Normocephaly, Mucus Membranes Dry Neck: Positive: neck supple, trachea midline Cardiac: Positive: Regular Rhythm, Tachycardia Lungs: Positive: Decreased Breath Sounds Neuro: Positive: Grossly Intact Abdomen: Positive: Soft Skin: Negative: Rash Musculoskeletal: No Fluid Collection Extremities: Present: lower extr. pulses, warm. Absent: edema - Labs and Meds CBC 07/10/21 Range/Units 04:52 WBC 9.1 (4.5-11.0) K/mm3 RBC 2.23 L (3.65-5.03) M/mm3 Hgb 6.7 L (10.1-14.3) gm/dl Hct 21.6 L (30.3-42.9) % Plt Count 279 (140-440) K/mm3 Comprehensive Metabolic Panel 07/10/21 Range/Units 04:52 Sodium 160 H D (137-145) mmol/L Potassium 4.0 (3.6-5.0) mmol/L Chloride 108.7 H (98-107) mmol/L Carbon Dioxide 43 H* (22-30) mmol/L BUN 59 H (7-17) mg/dL Creatinine 0.5 L (0.6-1.2) mg/dL Glucose 222 H (65-100) mg/dL Calcium 10.1 (8.4-10.2) mg/dL - Imaging and Cardiology EKG: report reviewed, image reviewed Echo: report reviewed - Telemetry EKG Rhythm: Sinus Tachycardia - EKG Sinus rhythms and dysrhythmias: sinus tachycardia Ventricular dysrhythmias: ventricular premature com Myocardial infarction: septal CA (old age or ind, anterior CA (old age or i - Allied health notes Allied health notes reviewed: nursing
--- NOTE | 2021-07-10 12:03 | XRay Report ---
ABDOMEN 1 VIEW(S) INDICATION / CLINICAL INFORMATION: NGT placement. COMPARISON: Earlier today at 1016 hours FINDINGS: TUBES / LINES: The nasogastric tube has been advanced to the distal stomach and is in good position. BOWEL GAS PATTERN: No significant abnormality. FREE AIR / EXTRALUMINAL GAS: None seen. ADDITIONAL FINDINGS: No significant additional findings. IMPRESSION: Adequate placement of the nasogastric tube. Signer Name: Marquis Marion Jr, MD Signed: 07/10/2021 11:59 AM Workstation Name: [id number]
[2021-07-10] MEDS ORDERED: SODIUM CHLORIDE 0.9% 500 ML 500 ML IV ONE (12:47)
[2021-07-10] MEDS: DOCUSATE SODIUM 100 MG/10 ML ORAL LIQD PO SCH ×2 (13:26→22:10)
[2021-07-10] MEDS: FAMOTIDINE 20 MG TAB FEEDTUBE SCH ×2 (13:26→22:10)
[2021-07-10] MEDS: CLOPIDOGREL 75 MG TAB PO SCH (13:26)
[2021-07-10] MEDS: METOPROLOL TARTRATE 100 MG TAB PO SCH ×2 (13:30→22:10)
[2021-07-10] MEDS: LISINOPRIL 10 MG TAB PO SCH (13:30)
[2021-07-10] MEDS ORDERED: SODIUM CHLORIDE 0.9% 500 ML 500 ML ONE (15:22)
--- NOTE | 2021-07-10 20:10 | Progress Note ---
Assessment and Plan Assessment and plan: --Acute hypercapnic respiratory failure/nasal cannula oxygen/intermittent BiPAP Currently on nasal cannula at 5 L/min will wean as tolerated and BiPAP keep SpO2 >92%, -BiPAP at night likely 2/2 to CAP, Wean as tolerated Home O2 evaluation Wean off BiPAP as tolerated --Atrial fibrillation rate controlled -continue metoprolol and eliquis -Cardiology following, Continue current management --Hypertension/well-controlled Continue current antihypertensives As needed medications --Type 2 diabetes Accu-Chek sliding scale coverage ADA diet Long-acting insulin as needed Resolved problems --Severe hyponatremia- resolved ---Acute metabolic encephalopathy- likely 2/2 hyponatremia ---Urinary tract infection --Community-acquired pneumonia-s/p abx Disposition Plan: Continue medical management Continue to wean off a.m. dose a.m. dose. Amaryl moderate she gets awake because she is BiPAP Home O2 evaluation, home BiPAP at discharge We'll closely monitor the patient and adjust management as needed Plan of care reviewed with the patient and her nurse Also discussed the DC planning with case management group Consults and recommendations noted and appreciated Continue current management Home O2 evaluation and BiPAP at night and as needed during daytime Case management to assist with home O2/BiPAP at discharge 07/10/2019; continue current management Wean off BiPAP as tolerated, home O2 evaluation Home BiPAP if needed History Interval history: I have seen and examined the patient at the bedside Patient's chart and medications reviewed No new events reported by nursing Hospitalist Physical - Constitutional Vitals: Temp Pulse Resp BP Pulse Ox 98.2 F 89 17 108/59 95 07/10/21 18:06 07/10/21 18:06 07/10/21 18:06 07/10/21 18:06 07/10/21 18:06 General appearance: Present: no acute distress, well-nourished, obese (Morbidly) - EENT Eyes: Present: PERRL, EOM intact - Neck Neck: Present: supple, normal ROM - Respiratory Respiratory effort: normal Respiratory: bilateral: diminished, negative: rales, rhonchi, wheezing - Cardiovascular Rhythm: regular Heart Sounds: Present: S1 & S2 - Extremities Extremities: no ischemia, No edema - Abdominal General gastrointestinal: soft, non-tender, non-distended, normal bowel sounds - Integumentary Integumentary: Present: clear, warm - Psychiatric Psychiatric: other - Neurologic Neurologic: other HEART Score - HEART Score Troponin: Troponin T < 0.010 ng/mL (0.00-0.029) 06/22/21 07:58 Results - Labs CBC & Chem 7: 07/10/21 04:52 07/10/21 04:52 Labs: Laboratory Last Values WBC 9.1 K/mm3 (4.5-11.0) 07/10/21 04:52 RBC 2.23 M/mm3 (3.65-5.03) L 07/10/21 04:52 Hgb 6.7 gm/dl (10.1-14.3) L 07/10/21 04:52 Hct 21.6 % (30.3-42.9) L 07/10/21 04:52 MCV 97 fl (79-97) 07/10/21 04:52 MCH 30 pg (28-32) 07/10/21 04:52 MCHC 31 % (30-34) 07/10/21 04:52 RDW 14.9 % (13.2-15.2) 07/10/21 04:52 Plt Count 279 K/mm3 (140-440) 07/10/21 04:52 Lymph % (Auto) 8.6 % (13.4-35.0) L 06/30/21 04:20 [place] % (Auto) 8.3 % (0.0-7.3) H 06/30/21 04:20 Eos % (Auto) 0.5 % (0.0-4.3) 06/30/21 04:20 Baso % (Auto) 0.0 % (0.0-1.8) 06/30/21 04:20 Lymph # (Auto) 1.0 K/mm3 (1.2-5.4) L 06/30/21 04:20 [place] # (Auto) 1.0 K/mm3 (0.0-0.8) H 06/30/21 04:20 Eos # (Auto) 0.1 K/mm3 (0.0-0.4) 06/30/21 04:20 Baso # (Auto) 0.0 K/mm3 (0.0-0.1) 06/30/21 04:20 Add Manual Diff Complete 06/25/21 22:55 Total Counted 100 06/25/21 22:55 Seg Neutrophils % 82.6 % (40.0-70.0) H 06/30/21 04:20 Seg Neuts % (Manual) 91.0 % (40.0-70.0) H 06/25/21 22:55 Lymphocytes % (Manual) 6.0 % (13.4-35.0) L 06/25/21 22:55 Monocytes % (Manual) 3.0 % (0.0-7.3) 06/25/21 22:55 Metamyelocytes % 1.0 % 06/24/21 05:33 Nucleated RBC % Not Reportable 06/25/21 22:55 Seg Neutrophils # 9.8 K/mm3 (1.8-7.7) H 06/30/21 04:20 Seg Neutrophils # Man 13.5 K/mm3 (1.8-7.7) H 06/25/21 22:55 Band Neutrophils # 0.0 K/mm3 06/25/21 22:55 Lymphocytes # (Manual) 0.9 K/mm3 (1.2-5.4) L 06/25/21 22:55 Abs React Lymphs (Man) 0.0 K/mm3 06/25/21 22:55 Monocytes # (Manual) 0.4 K/mm3 (0.0-0.8) 06/25/21 22:55 Eosinophils # (Manual) 0.0 K/mm3 (0.0-0.4) 06/25/21 22:55 Basophils # (Manual) 0.0 K/mm3 (0.0-0.1) 06/25/21 22:55 Metamyelocytes # 0.0 K/mm3 06/25/21 22:55 Myelocytes # 0.0 K/mm3 06/25/21 22:55 Promyelocytes # 0.0 K/mm3 06/25/21 22:55 Blast Cells # 0.0 K/mm3 06/25/21 22:55 WBC Morphology Not Reportable 06/25/21 22:55 Hypersegmented Neuts Not Reportable 06/25/21 22:55 Hyposegmented Neuts Not Reportable 06/25/21 22:55 Hypogranular Neuts Not Reportable 06/25/21 22:55 Smudge Cells Not Reportable 06/25/21 22:55 Toxic Granulation Not Reportable 06/25/21 22:55 Toxic Vacuolation Not Reportable 06/25/21 22:55 Dohle Bodies Not Reportable 06/25/21 22:55 Pelger-Huet Anomaly Not Reportable 06/25/21 22:55 Otf Rods Not Reportable 06/25/21 22:55 Platelet Estimate Consistent w auto 06/25/21 22:55 Clumped Platelets Not Reportable 06/25/21 22:55 Plt Clumps, EDTA Not Reportable 06/25/21 22:55 Large Platelets Not Reportable 06/25/21 22:55 Giant Platelets Not Reportable 06/25/21 22:55 Platelet Satelliting Not Reportable 06/25/21 22:55 Plt Morphology Comment Not Reportable 06/25/21 22:55 RBC Morphology Normal 06/25/21 22:55 Dimorphic RBCs Not Reportable 06/25/21 22:55 Polychromasia Not Reportable 06/25/21 22:55 Hypochromasia Not Reportable 06/25/21 22:55 Poikilocytosis Not Reportable 06/25/21 22:55 Anisocytosis Not Reportable 06/25/21 22:55 Microcytosis Not Reportable 06/25/21 22:55 Macrocytosis Not Reportable 06/25/21 22:55 Spherocytes Not Reportable 06/25/21 22:55 Pappenheimer Bodies Not Reportable 06/25/21 22:55 Sickle Cells Not Reportable 06/25/21 22:55 Target Cells Not Reportable 06/25/21 22:55 Tear Drop Cells Not Reportable 06/25/21 22:55 Ovalocytes Not Reportable 06/25/21 22:55 Helmet Cells Not Reportable 06/25/21 22:55 Bridges-Leonore Bodies Not Reportable 06/25/21 22:55 [employer] Rings Not Reportable 06/25/21 22:55 [place] Cells Not Reportable 06/25/21 22:55 Bite Cells Not Reportable 06/25/21 22:55 Crenated Cell Not Reportable 06/25/21 22:55 Elliptocytes Not Reportable 06/25/21 22:55 Acanthocytes (Spur) Not Reportable 06/25/21 22:55 Rouleaux Not Reportable 06/25/21 22:55 Hemoglobin C Crystals Not Reportable 06/25/21 22:55 Schistocytes Not Reportable 06/25/21 22:55 Malaria parasites Not Reportable 06/25/21 22:55 Steve Bodies Not Reportable 06/25/21 22:55 Hem Pathologist Commnt No 06/25/21 22:55 PT 13.0 Sec. (12.2-14.9) 07/02/21 05:30 INR 0.88 (0.87-1.13) 07/02/21 05:30 APTT TNR 07/02/21 05:30 Thrombin Time 15.9 Sec. (15.1-19.6) 06/22/21 07:58 D-Dimer 390 ng/mlDDU (0-234) H 06/22/21 08:56 Heparin Anti-Xa Level 1.90 U.I./ml (0.3-0.7) H 07/03/21 04:09 ABG pH 7.415 pH Units (7.350-7.450) 07/06/21 16:00 POC ABG pCO2 38.0 mmHg (32.0-48.0) 06/27/21 05:06 ABG pCO2 74.5 mm Hg 07/06/21 16:00 POC ABG pO2 93.6 mmHg (83-108) 06/27/21 05:06 ABG pO2 69.0 mm Hg (80.0-90.0) L 07/06/21 16:00 POC ABG HCO3 27.7 06/27/21 05:06 ABG HCO3 46.7 mmol/L (20.0-26.0) H 07/06/21 16:00 ABG O2 Saturation 95.2 % (95.0-99.0) 07/06/21 16:00 ABG O2 Content 10.8 (0.0-44) 07/06/21 16:00 POC ABG Base Excess 4.0 06/27/21 05:06 ABG Base Excess 19.7 mmol/L (-2.0-3.0) H 07/06/21 16:00 ABG Hemoglobin 8.1 gm/dl (12.0-16.0) L 07/06/21 16:00 ABG Oxyhemoglobin 96.8 (94-98) 06/27/21 05:06 ABG Carboxyhemoglobin 1.7 % (0.0-5.0) 07/06/21 16:00 ABG Methemoglobin 0.2 % (0.0-1.5) 07/06/21 16:00 ABG Sodium 123.5 mmol/L (136.0-145.0) L 06/27/21 05:06 ABG Potassium 3.7 mmol/L (3.40-4.50) 06/27/21 05:06 ABG Chloride 91.0 mmol/L (98-107) L 06/27/21 05:06 ABG Glucose 328 mg/dL (65-95) H 06/27/21 05:06 Oxyhemoglobin 93.4 % (95.0-99.0) L 07/06/21 16:00 Carboxyhemoglobin 0.9 (0.5-1.5) 06/27/21 05:06 FiO2 40 % 07/06/21 16:00 FiO2 % 40.0 06/27/21 05:06 Sodium 160 mmol/L (137-145) H D 07/10/21 04:52 Potassium 4.0 mmol/L (3.6-5.0) 07/10/21 04:52 Chloride 108.7 mmol/L (98-107) H 07/10/21 04:52 Carbon Dioxide 43 mmol/L (22-30) H* 07/10/21 04:52 Anion Gap 12 mmol/L 07/10/21 04:52 BUN 59 mg/dL (7-17) H 07/10/21 04:52 Creatinine 0.5 mg/dL (0.6-1.2) L 07/10/21 04:52 Estimated GFR > 60 ml/min 07/10/21 04:52 BUN/Creatinine Ratio 118 % 07/10/21 04:52 Glucose 222 mg/dL (65-100) H 07/10/21 04:52 POC Glucose 174 mg/dL (70-105) H 07/10/21 11:39 Hemoglobin A1c 6.6 % (4-6) H 06/23/21 05:29 Osmolality 240 Mosm/kg 06/22/21 23:24 Lactic Acid 1.60 mmol/L (0.7-2.0) 06/25/21 22:55 Uric Acid 3.2 mg/dL (3.5-7.6) L 06/23/21 05:29 Calcium 10.1 mg/dL (8.4-10.2) 07/10/21 04:52 Phosphorus 3.10 mg/dL (2.5-4.5) 07/02/21 05:23 Magnesium 1.80 mg/dL (1.7-2.3) 07/02/21 05:23 Ferritin 102.1 ng/mL (10.0-200.0) 06/22/21 08:56 Total Bilirubin 0.30 mg/dL (0.1-1.2) 06/29/21 05:13 Direct Bilirubin < 0.2 mg/dL (0-0.2) 06/26/21 04:32 Indirect Bilirubin 0.1 mg/dL 06/26/21 04:32 AST 12 units/L (5-40) 06/29/21 05:13 ALT 9 units/L (7-56) 06/29/21 05:13 Alkaline Phosphatase 31 units/L (35-129) L 06/29/21 05:13 Lactate Dehydrogenase 220 units/L (91-180) H 06/22/21 08:56 Troponin T < 0.010 ng/mL (0.00-0.029) 06/22/21 07:58 C-Reactive Protein 5.40 mg/dL (0.00-1.30) H 06/22/21 08:56 Total Protein 3.3 g/dL (6.3-8.2) L D 06/29/21 05:13 Albumin 1.9 g/dL (3.9-5) L 06/29/21 05:13 Albumin/Globulin Ratio 1.4 % 06/29/21 05:13 Procalcitonin < 0.05 ng/mL (<0.15) 06/22/21 08:56 TSH 1.070 mlU/mL (0.270-4.200) 06/22/21 07:58 Total Cortisol 36.4 mcg/dL () 06/26/21 16:06 Arterial Blood Glucose 328 mg/dL (65-95) H 06/27/21 05:06 Arterial Blood Ionized Calcium 4.9 mg/dL (4.6-5.3) 06/27/21 05:06 Urine Color Yellow (Yellow) 06/26/21 09:48 Urine Turbidity Slightly-cloudy (Clear) 06/26/21 09:48 Urine pH 6.0 (5.0-7.0) 06/26/21 09:48 Ur Specific [place] 1.014 (1.003-1.030) 06/26/21 09:48 Urine Protein 30 mg/dl mg/dL (Negative) 06/26/21 09:48 Urine Glucose (UA) 50 mg/dL (Negative) 06/26/21 09:48 Urine Ketones 20 mg/dL (Negative) 06/26/21 09:48 Urine Blood Mod (Negative) 06/26/21 09:48 Urine Nitrite Neg (Negative) 06/26/21 09:48 Urine Bilirubin Neg (Negative) 06/26/21 09:48 Urine Urobilinogen < 2.0 mg/dL (<2.0) 06/26/21 09:48 Ur Leukocyte Esterase Mod (Negative) 06/26/21 09:48 Urine WBC (Auto) 69.0 /HPF (0.0-6.0) H 06/26/21 09:48 Urine RBC (Auto) 29.0 /HPF (0.0-6.0) 06/26/21 09:48 U Epithel Cells (Auto) 1.0 /HPF (0-13.0) 06/26/21 09:48 Urine Bacteria (Auto) 4+ /HPF (Negative) 06/26/21 09:48 Ur Transition Epith Cell 1 /HPF 06/22/21 11:47 Hyaline Casts 5 /LPF 06/22/21 11:47 Urine Mucus Few /HPF 06/26/21 09:48 Urine Yeast (Budding) 3+ /HPF 06/26/21 09:48 Urine Osmolality 571 Mosm/kg 06/22/21 11:47 Urine Sodium 25 mmol/L 06/22/21 11:47 Coronavirus (PCR) Negative (Negative) 07/08/21 Unknown Blood Type B POSITIVE 07/10/21 13:08 Antibody Screen Negative 07/10/21 13:08 Crossmatch See Detail 07/10/21 13:08 Martines/IV: Voiding Method External Female Catheter Active Medications - Current Medications Current Medications: Generic Name Dose Route Start Last Admin Trade Name Freq PRN Reason Stop Dose Admin Acetaminophen 650 mg 06/22/21 22:07/08/21 12:08 Acetaminophen 325 Mg Tab PO 650 mg Q4H PRN Administration Pain MILD(1-3)/Fever >100.5/NAVA Lipase/Protease/Amylase 1 each 06/29/21 16:20 Lipase 10,500/Protease 25,000/Amylase 43,750 (Units) Dr Emanuel FEEDTUBE PRN PRN For Clogged Feeding Tube Clopidogrel Bisulfate 75 mg 06/23/21 10:00 07/10/21 13:26 Clopidogrel 75 Mg Tab PO 75 mg DAILY JUDY Administration Docusate Sodium 100 mg 06/25/21 22:00 07/10/21 13:26 Docusate Sodium 100 Mg/10 Ml Oral Liqd PO 100 mg BID JUDY Administration Famotidine 20 mg 06/29/21 22:00 07/10/21 13:26 Famotidine 20 Mg Tab FEEDTUBE 20 mg BID JUDY Administration Insulin Human Lispro 0 unit 06/26/21 12:00 07/10/21 17:40 Insulin Lispro 100 Unit/Ml SUB-Q Not Given Q6HR [facility] Protocol Lisinopril 10 mg 07/03/21 10:00 07/10/21 13:30 Lisinopril 10 Mg Tab PO 10 mg QDAY JUDY Administration Metoclopramide HCl 10 mg 06/22/21 22:21 Metoclopramide 10 Mg/2 Ml Inj IV Q6H PRN Nausea And Vomiting Metoprolol Tartrate 100 mg 07/03/21 10:00 07/10/21 13:30 Metoprolol Tartrate 100 Mg Tab PO 100 mg BID JUDY Administration Ondansetron HCl 4 mg 06/22/21 22:21 Ondansetron 4 Mg/2 Ml Inj IV Q8H PRN Nausea And Vomiting Pravastatin Sodium 40 mg 06/23/21 22:00 07/09/21 21:32 Pravastatin 40 Mg Tab PO 40 mg QHS JUDY Administration Simple Syrup 15 ml 06/29/21 16:20 Simple Syrup 15 Ml FEEDTUBE PRN PRN Hypoglycemia Simple Syrup 30 ml 06/29/21 16:20 Simple Syrup 15 Ml FEEDTUBE PRN PRN Hypoglycemia Sodium Bicarbonate 325 mg 06/29/21 16:20 Sodium Bicarbonate 325 Mg Tab FEEDTUBE PRN PRN For Clogged Feeding Tube Sodium Chloride 10 ml 06/23/21 10:00 07/10/21 13:27 Sodium Chloride 0.9% 10 Ml Flush Syringe IV 10 ml BID JUDY Administration Sodium Chloride 10 ml 06/22/21 22:21 Sodium Chloride 0.9% 10 Ml Flush Syringe IV PRN PRN LINE FLUSH Nutrition/Malnutrition Assess - Dietary Evaluation Nutrition/Malnutrition Findings: Nutrition Notes Start: 06/26/21 11:01 Freq: Status: Active Protocol: Document 07/08/21 17:32 VINCENZO (Rec: 07/08/21 17:40 VINCENZO [id number]) Nutrition Notes Initial or Follow up Brief Note Current Diet TF-Vital High Protein @ 50 ml/ hr (since D 06/29). Height 5 ft 5 in Weight 114.4 kg [place] Body Weight (kg) 56.81 BMI 41.9 Weight change and time frame Discrepancy of 28.217 Kg body weight change in 1 week reported. Weight Status Morbidly Obese Subjective/Other Information RD consult for routine F/U on TF tolerance. TF continues without changes, thus, well tolerated. Percent of energy/protein needs met: Prescribed Vital High Protein @ 50 ml/hr provides for energy /protein needs (1,200 Kcal/105 g) during LOS, 100% Kcal; 90% AA. Current % PO Other Minimum of two criteria No #1 Nutrition Diagnosis Inadequate oral intake Diagnosis Progress(for reassessment Continues documentation) Nutrition Intervention Nutrition Support: Continue Vital High Protein @ 50 ml/hr. Flush: 50 ml water Q 4 hr. Kcal 1,200 Protein (gm) 105 Carbohydrates (gm) 134 Fat (gm) 28 Fluid (mL) 1,003 Fiber (gm) 0 % RDI: 100% Kcal; 90% AA. Goal #1 Provide at least 75% of energy /protein needs through Enteral Feeding during LOS. Follow-Up By: 07/14/21 Additional Comments Continue monitoring TF tolerance and BM.
[2021-07-10] MEDS: PRAVASTATIN 40 MG TAB PO SCH (22:10)
[2021-07-11 00:02] LABS: Hematocrit 25.6 % (30.3-42.9); Hemoglobin 8.1 gm/dl (10.1-14.3)
[2021-07-11] MEDS: INSULIN LISPRO 100 UNIT/ML SUB-Q SCH ×4 (00:24→17:56)
--- NOTE | 2021-07-11 08:53 | Progress Note ---
Assessment and Plan 65 y/o female with symptomatic hyponatremia of unknown etiology 07/11/21: NIV at night. Needs for home secondary to chronic respiratory failure with hypercapnea. supplemental oxygen during the day. 07/09/21: can come off bipap but must be worn at night and PRN. CM working on funding. Guarded prognosis 07/03/21: Continue NIV at night. Unfortunately, based on CM note, it appears she has no funding but really needs NIV therapy. Wean supplemental O2 as tolerated and will need walk test prior to discharge. Suggest PT/OT consult as well. 07/02/21: stable pulm [place] now for transfer to floor, should have tele. COntinue bipap at night and pRN. CM investigating funding as she will need NIV at discharge. 07/01/21: Will need NIV for night time and PRN use at home. Will continue bipap QHS and PRN here. Ok with transfer to step down for at least 24 hours and then to floor. Rate control per cards. Ok to restart feeds as well. Will continue to follow. CM to further investigate funding 06/30/21: Will give break off bipap for at least an hour and monitor mental state hourly. In the event she requires continuous bipap again, then will discuss with patient and family () the Idea of trach, trach care and what that co uld mean for her in the future. Cardiology has ordered PO meds. We will attempt to give those but we had changed them back to IV given the likelihood she is going to require bipap again. Continue ICU care. 06/29/21: Will keep patient on continuous bipap at least until tomorrow morning. Try off Bipap again. If she fails will reach out to surgery as patient would likely need trach. Biggest question is why now (for CO2 retention.) Per cards echo is normal and when asked no prior history of RADHA. Will keep NPO so will nee to Continue Amio drip. Will place on scheduled lopressor since we cannot give oral meds at this time. 06/26/21: Transfer on hold. Follow up repeat ABG. Wean vasopressors for maps >65. Call renal in regards to Na since no real improvement with samsaca. Place [place]. If 3% is needed again, please give through central line. 06/25/21: Transferring to floor. Suggest remote tele. Wean FiO2 as tolerated. Will continue to follow. 06/24/21: Given Na greater than 120 and symptoms continue to improve, no objection to down grade to floor status. Suggest either tele floor or remote tele. Follow up renal recs. 1. Follow up renal recs 2. Yesterday placed patient on normal saline but now that 3% is being given will discontinue 3. q6 hour Chemistries given low chloride as well 4. Frequent neuro checks given rising na 5. Guarded prognosis. CCT 31minutes. Subjective Date of service: 07/11/21 Principal diagnosis: AF w RVR Interval history: On 4 liters. No distress. Objective Vital Signs - 12hr 07/10/21 07/10/21 07/10/21 22:00 22:10 23:12 Temperature 97.9 F Pulse Rate 102 H Pulse Rate [ 75 From Monitor] Pulse Rate [ 61 Left Dorsalis Pedis] Pulse Rate [ 65 Right Dorsalis Pedis] Respiratory 19 Rate Blood Pressure 96/40 O2 Sat by Pulse 96 Oximetry 07/11/21 07/11/21 07/11/21 00:11 03:50 08:24 Temperature 98.2 F 97.6 F Pulse Rate 87 Pulse Rate [ From Monitor] Pulse Rate [ Left Dorsalis Pedis] Pulse Rate [ Right Dorsalis Pedis] Respiratory 18 22 Rate Blood Pressure 99/54 106/39 O2 Sat by Pulse 100 98 Oximetry 07/11/21 08:38 Temperature Pulse Rate Pulse Rate [ From Monitor] Pulse Rate [ Left Dorsalis Pedis] Pulse Rate [ Right Dorsalis Pedis] Respiratory Rate Blood Pressure O2 Sat by Pulse 94 Oximetry Constitutional: no acute distress, alert, other (obese) Eyes: non-icteric ENT: oropharynx moist Neck: supple Effort: normal Ascultation: Bilateral: diminished breath sounds, other (coarse BS bilaterally) Cardiovascular: regular rate and rhythm (ir/ir, no mrg) Gastrointestinal: normoactive bowel sounds, soft, non-distended Integumentary: normal Extremities: no cyanosis, no edema, pink and warm Neurologic: normal mental status, non-focal exam, pupils equal and round, CN II- XII normal Psychiatric: mood appropriate, affect normal CBC and BMP: 07/10/21 23:47 07/10/21 04:52 ABG, PT/INR, D-dimer: ABG ABG pH 7.415 pH Units (7.350-7.450) 07/06/21 16:00 POC ABG pCO2 38.0 mmHg (32.0-48.0) 06/27/21 05:06 ABG pCO2 74.5 mm Hg 07/06/21 16:00 POC ABG pO2 93.6 mmHg (83-108) 06/27/21 05:06 ABG pO2 69.0 mm Hg (80.0-90.0) L 07/06/21 16:00 POC ABG HCO3 27.7 06/27/21 05:06 ABG O2 Saturation 95.2 % (95.0-99.0) 07/06/21 16:00 PT/INR, D-dimer PT 13.0 Sec. (12.2-14.9) 07/02/21 05:30 INR 0.88 (0.87-1.13) 07/02/21 05:30 D-Dimer 390 ng/mlDDU (0-234) H 06/22/21 08:56 Abnormal lab findings: Abnormal Labs 06/22/21 06/22/21 06/22/21 07:58 07:58 07:58 WBC 13.0 H RBC Hgb Hct MCHC 35 H Lymph % (Auto) 6.3 L [place] % (Auto) 7.4 H Lymph # (Auto) 0.8 L [place] # (Auto) 1.0 H Seg Neutrophils % 85.5 H Seg Neuts % (Manual) Lymphocytes % (Manual) Seg Neutrophils # 11.1 H Seg Neutrophils # Man Lymphocytes # (Manual) PT 11.8 L INR 0.78 L D-Dimer Heparin Anti-Xa Level ABG pH POC ABG pCO2 ABG pO2 ABG HCO3 ABG O2 Saturation ABG Base Excess ABG Hemoglobin ABG Oxyhemoglobin ABG Sodium ABG Chloride ABG Glucose Oxyhemoglobin Sodium 107 L* Potassium 2.7 L* Chloride 60.0 L Carbon Dioxide 32 H BUN Creatinine 0.5 L Glucose 177 H POC Glucose Hemoglobin A1c Lactic Acid Uric Acid Calcium Phosphorus Magnesium Alkaline Phosphatase Lactate Dehydrogenase C-Reactive Protein Total Protein Albumin Arterial Blood Glucose Urine WBC (Auto) Crossmatch 06/22/21 06/22/21 06/22/21 08:56 08:56 08:56 WBC RBC Hgb Hct MCHC Lymph % (Auto) [place] % (Auto) Lymph # (Auto) [place] # (Auto) Seg Neutrophils % Seg Neuts % (Manual) Lymphocytes % (Manual) Seg Neutrophils # Seg Neutrophils # Man Lymphocytes # (Manual) PT INR D-Dimer 390 H Heparin Anti-Xa Level ABG pH POC ABG pCO2 ABG pO2 ABG HCO3 ABG O2 Saturation ABG Base Excess ABG Hemoglobin ABG Oxyhemoglobin ABG Sodium ABG Chloride ABG Glucose Oxyhemoglobin Sodium Potassium Chloride Carbon Dioxide BUN Creatinine Glucose 179 H POC Glucose Hemoglobin A1c Lactic Acid 2.10 H* Uric Acid Calcium Phosphorus Magnesium Alkaline Phosphatase Lactate Dehydrogenase 220 H C-Reactive Protein 5.40 H Total Protein Albumin Arterial Blood Glucose Urine WBC (Auto) Crossmatch 06/22/21 06/22/21 06/22/21 08:56 11:47 14:20 WBC RBC Hgb Hct MCHC Lymph % (Auto) [place] % (Auto) Lymph # (Auto) [place] # (Auto) Seg Neutrophils % Seg Neuts % (Manual) Lymphocytes % (Manual) Seg Neutrophils # Seg Neutrophils # Man Lymphocytes # (Manual) PT INR D-Dimer Heparin Anti-Xa Level ABG pH POC ABG pCO2 ABG pO2 ABG HCO3 ABG O2 Saturation ABG Base Excess ABG Hemoglobin ABG Oxyhemoglobin ABG Sodium ABG Chloride ABG Glucose Oxyhemoglobin Sodium 104 L* 112 L* D Potassium 3.2 L 2.7 L* Chloride 60.0 L 65.2 L Carbon Dioxide 32 H BUN Creatinine 0.4 L 0.4 L Glucose 181 H 119 H POC Glucose Hemoglobin A1c Lactic Acid Uric Acid Calcium Phosphorus Magnesium Alkaline Phosphatase Lactate Dehydrogenase C-Reactive Protein Total Protein Albumin Arterial Blood Glucose Urine WBC (Auto) 11.0 H Crossmatch 06/22/21 06/23/21 06/23/21 18:19 05:29 05:29 WBC 12.4 H RBC Hgb Hct MCHC Lymph % (Auto) 5.8 L [place] % (Auto) Lymph # (Auto) 0.7 L [place] # (Auto) 0.9 H Seg Neutrophils % 87.1 H Seg Neuts % (Manual) Lymphocytes % (Manual) Seg Neutrophils # 10.8 H Seg Neutrophils # Man Lymphocytes # (Manual) PT INR D-Dimer Heparin Anti-Xa Level ABG pH POC ABG pCO2 ABG pO2 ABG HCO3 ABG O2 Saturation ABG Base Excess ABG Hemoglobin ABG Oxyhemoglobin ABG Sodium ABG Chloride ABG Glucose Oxyhemoglobin Sodium 112 L* 112 L* Potassium 2.7 L* 2.6 L* Chloride 65.8 L 67.5 L Carbon Dioxide 31 H 33 H BUN Creatinine 0.3 L 0.4 L Glucose POC Glucose Hemoglobin A1c Lactic Acid Uric Acid 3.2 L Calcium Phosphorus Magnesium Alkaline Phosphatase Lactate Dehydrogenase C-Reactive Protein Total Protein Albumin Arterial Blood Glucose Urine WBC (Auto) Crossmatch 06/23/21 06/23/21 06/23/21 05:29 05:29 12:11 WBC RBC Hgb Hct MCHC Lymph % (Auto) [place] % (Auto) Lymph # (Auto) [place] # (Auto) Seg Neutrophils % Seg Neuts % (Manual) Lymphocytes % (Manual) Seg Neutrophils # Seg Neutrophils # Man Lymphocytes # (Manual) PT INR D-Dimer Heparin Anti-Xa Level ABG pH POC ABG pCO2 ABG pO2 ABG HCO3 ABG O2 Saturation ABG Base Excess ABG Hemoglobin ABG Oxyhemoglobin ABG Sodium ABG Chloride ABG Glucose Oxyhemoglobin Sodium 113 L* Potassium 2.6 L* Chloride 69.7 L Carbon Dioxide BUN Creatinine 0.4 L Glucose 106 H POC Glucose Hemoglobin A1c 6.6 H Lactic Acid Uric Acid Calcium Phosphorus Magnesium 1.50 L Alkaline Phosphatase Lactate Dehydrogenase C-Reactive Protein Total Protein Albumin Arterial Blood Glucose Urine WBC (Auto) Crossmatch 06/23/21 06/24/21 06/24/21 17:43 00:43 00:45 WBC RBC Hgb Hct MCHC Lymph % (Auto) [place] % (Auto) Lymph # (Auto) [place] # (Auto) Seg Neutrophils % Seg Neuts % (Manual) Lymphocytes % (Manual) Seg Neutrophils # Seg Neutrophils # Man Lymphocytes # (Manual) PT INR D-Dimer Heparin Anti-Xa Level ABG pH POC ABG pCO2 ABG pO2 ABG HCO3 ABG O2 Saturation ABG Base Excess ABG Hemoglobin ABG Oxyhemoglobin ABG Sodium ABG Chloride ABG Glucose Oxyhemoglobin Sodium 117 L* 119 L* Potassium Chloride 74.9 L 79.6 L Carbon Dioxide 32 H BUN Creatinine 0.3 L 0.4 L Glucose 125 H 116 H POC Glucose 117 H Hemoglobin A1c Lactic Acid Uric Acid Calcium Phosphorus Magnesium Alkaline Phosphatase Lactate Dehydrogenase C-Reactive Protein Total Protein Albumin Arterial Blood Glucose Urine WBC (Auto) Crossmatch 06/24/21 06/24/21 06/24/21 05:33 05:33 06:11 WBC 12.0 H RBC Hgb Hct MCHC Lymph % (Auto) [place] % (Auto) Lymph # (Auto) [place] # (Auto) Seg Neutrophils % Seg Neuts % (Manual) 95.0 H Lymphocytes % (Manual) 2.0 L Seg Neutrophils # Seg Neutrophils # Man 11.4 H Lymphocytes # (Manual) 0.2 L PT INR D-Dimer Heparin Anti-Xa Level ABG pH POC ABG pCO2 ABG pO2 ABG HCO3 ABG O2 Saturation ABG Base Excess ABG Hemoglobin ABG Oxyhemoglobin ABG Sodium ABG Chloride ABG Glucose Oxyhemoglobin Sodium 122 L Potassium Chloride 80.2 L Carbon Dioxide 31 H BUN Creatinine 0.3 L Glucose 143 H POC Glucose 141 H Hemoglobin A1c Lactic Acid Uric Acid Calcium Phosphorus Magnesium Alkaline Phosphatase Lactate Dehydrogenase C-Reactive Protein Total Protein Albumin Arterial Blood Glucose Urine WBC (Auto) Crossmatch 06/24/21 06/24/21 06/24/21 16:25 18:16 23:49 WBC RBC Hgb Hct MCHC Lymph % (Auto) [place] % (Auto) Lymph # (Auto) [place] # (Auto) Seg Neutrophils % Seg Neuts % (Manual) Lymphocytes % (Manual) Seg Neutrophils # Seg Neutrophils # Man Lymphocytes # (Manual) PT INR D-Dimer Heparin Anti-Xa Level ABG pH POC ABG pCO2 ABG pO2 ABG HCO3 ABG O2 Saturation ABG Base Excess ABG Hemoglobin ABG Oxyhemoglobin ABG Sodium ABG Chloride ABG Glucose Oxyhemoglobin Sodium 122 L 123 L Potassium Chloride 78.9 L Carbon Dioxide 32 H BUN Creatinine 0.5 L D Glucose 141 H POC Glucose 162 H Hemoglobin A1c Lactic Acid Uric Acid Calcium Phosphorus Magnesium Alkaline Phosphatase Lactate Dehydrogenase C-Reactive Protein Total Protein Albumin Arterial Blood Glucose Urine WBC (Auto) Crossmatch 06/25/21 06/25/21 06/25/21 00:18 03:06 06:15 WBC RBC Hgb Hct MCHC Lymph % (Auto) [place] % (Auto) Lymph # (Auto) [place] # (Auto) Seg Neutrophils % Seg Neuts % (Manual) Lymphocytes % (Manual) Seg Neutrophils # Seg Neutrophils # Man Lymphocytes # (Manual) PT INR D-Dimer Heparin Anti-Xa Level ABG pH POC ABG pCO2 ABG pO2 ABG HCO3 ABG O2 Saturation ABG Base Excess ABG Hemoglobin ABG Oxyhemoglobin ABG Sodium ABG Chloride ABG Glucose Oxyhemoglobin Sodium 122 L Potassium Chloride Carbon Dioxide BUN Creatinine Glucose POC Glucose 151 H 149 H Hemoglobin A1c Lactic Acid Uric Acid Calcium Phosphorus Magnesium Alkaline Phosphatase Lactate Dehydrogenase C-Reactive Protein Total Protein Albumin Arterial Blood Glucose Urine WBC (Auto) Crossmatch 06/25/21 06/25/21 06/25/21 10:19 13:42 13:42 WBC RBC Hgb Hct MCHC Lymph % (Auto) [place] % (Auto) Lymph # (Auto) [place] # (Auto) Seg Neutrophils % Seg Neuts % (Manual) Lymphocytes % (Manual) Seg Neutrophils # Seg Neutrophils # Man Lymphocytes # (Manual) PT INR 0.85 L D-Dimer Heparin Anti-Xa Level ABG pH POC ABG pCO2 ABG pO2 ABG HCO3 ABG O2 Saturation ABG Base Excess ABG Hemoglobin ABG Oxyhemoglobin ABG Sodium ABG Chloride ABG Glucose Oxyhemoglobin Sodium 123 L Potassium Chloride 78.5 L Carbon Dioxide 32 H BUN 19 H Creatinine Glucose 193 H POC Glucose 152 H Hemoglobin A1c Lactic Acid Uric Acid Calcium Phosphorus Magnesium Alkaline Phosphatase Lactate Dehydrogenase C-Reactive Protein Total Protein Albumin Arterial Blood Glucose Urine WBC (Auto) Crossmatch 06/25/21 06/25/21 06/25/21 15:13 15:21 19:49 WBC RBC Hgb Hct MCHC Lymph % (Auto) [place] % (Auto) Lymph # (Auto) [place] # (Auto) Seg Neutrophils % Seg Neuts % (Manual) Lymphocytes % (Manual) Seg Neutrophils # Seg Neutrophils # Man Lymphocytes # (Manual) PT INR D-Dimer Heparin Anti-Xa Level < 0.10 L ABG pH POC ABG pCO2 ABG pO2 ABG HCO3 ABG O2 Saturation ABG Base Excess ABG Hemoglobin ABG Oxyhemoglobin ABG Sodium ABG Chloride ABG Glucose Oxyhemoglobin Sodium Potassium Chloride Carbon Dioxide BUN Creatinine Glucose POC Glucose 221 H 194 H Hemoglobin A1c Lactic Acid Uric Acid Calcium Phosphorus Magnesium Alkaline Phosphatase Lactate Dehydrogenase C-Reactive Protein Total Protein Albumin Arterial Blood Glucose Urine WBC (Auto) Crossmatch 06/25/21 06/25/21 06/25/21 21:21 22:55 22:55 WBC 14.8 H RBC Hgb Hct MCHC Lymph % (Auto) [place] % (Auto) Lymph # (Auto) [place] # (Auto) Seg Neutrophils % Seg Neuts % (Manual) 91.0 H Lymphocytes % (Manual) 6.0 L Seg Neutrophils # Seg Neutrophils # Man 13.5 H Lymphocytes # (Manual) 0.9 L PT INR D-Dimer Heparin Anti-Xa Level ABG pH 7.086 L POC ABG pCO2 104.9 H ABG pO2 ABG HCO3 ABG O2 Saturation ABG Base Excess ABG Hemoglobin ABG Oxyhemoglobin 92.4 L ABG Sodium 123.4 L ABG Chloride 81.0 L ABG Glucose 225 H Oxyhemoglobin Sodium 124 L Potassium Chloride 82.9 L Carbon Dioxide BUN 22 H Creatinine Glucose 226 H POC Glucose Hemoglobin A1c Lactic Acid Uric Acid Calcium 8.2 L Phosphorus 4.70 H Magnesium Alkaline Phosphatase Lactate Dehydrogenase C-Reactive Protein Total Protein Albumin Arterial Blood Glucose 225 H Urine WBC (Auto) Crossmatch 06/26/21 06/26/21 06/26/21 00:35 02:58 04:32 WBC RBC Hgb Hct MCHC Lymph % (Auto) [place] % (Auto) Lymph # (Auto) [place] # (Auto) Seg Neutrophils % Seg Neuts % (Manual) Lymphocytes % (Manual) Seg Neutrophils # Seg Neutrophils # Man Lymphocytes # (Manual) PT INR D-Dimer Heparin Anti-Xa Level ABG pH POC ABG pCO2 ABG pO2 439.6 H ABG HCO3 30.0 H ABG O2 Saturation 99.6 H ABG Base Excess 3.3 H ABG Hemoglobin ABG Oxyhemoglobin ABG Sodium ABG Chloride ABG Glucose Oxyhemoglobin Sodium 123 L Potassium Chloride 79.2 L Carbon Dioxide BUN 26 H Creatinine Glucose 202 H POC Glucose 227 H Hemoglobin A1c Lactic Acid Uric Acid Calcium Phosphorus Magnesium Alkaline Phosphatase Lactate Dehydrogenase C-Reactive Protein Total Protein 5.9 L Albumin 2.8 L Arterial Blood Glucose Urine WBC (Auto) Crossmatch 06/26/21 06/26/21 06/26/21 05:53 09:14 09:48 WBC RBC Hgb Hct MCHC Lymph % (Auto) [place] % (Auto) Lymph # (Auto) [place] # (Auto) Seg Neutrophils % Seg Neuts % (Manual) Lymphocytes % (Manual) Seg Neutrophils # Seg Neutrophils # Man Lymphocytes # (Manual) PT INR D-Dimer Heparin Anti-Xa Level ABG pH POC ABG pCO2 ABG pO2 ABG HCO3 ABG O2 Saturation ABG Base Excess ABG Hemoglobin ABG Oxyhemoglobin ABG Sodium ABG Chloride ABG Glucose Oxyhemoglobin Sodium Potassium Chloride Carbon Dioxide BUN Creatinine Glucose POC Glucose 187 H 194 H Hemoglobin A1c Lactic Acid Uric Acid Calcium Phosphorus Magnesium Alkaline Phosphatase Lactate Dehydrogenase C-Reactive Protein Total Protein Albumin Arterial Blood Glucose Urine WBC (Auto) 69.0 H Crossmatch 06/26/21 06/26/21 06/26/21 10:00 16:06 22:34 WBC RBC Hgb Hct MCHC Lymph % (Auto) [place] % (Auto) Lymph # (Auto) [place] # (Auto) Seg Neutrophils % Seg Neuts % (Manual) Lymphocytes % (Manual) Seg Neutrophils # Seg Neutrophils # Man Lymphocytes # (Manual) PT INR D-Dimer Heparin Anti-Xa Level ABG pH 7.467 H POC ABG pCO2 ABG pO2 125.4 H ABG HCO3 ABG O2 Saturation ABG Base Excess ABG Hemoglobin ABG Oxyhemoglobin ABG Sodium ABG Chloride ABG Glucose Oxyhemoglobin Sodium 128 L Potassium Chloride 88.6 L Carbon Dioxide BUN 32 H Creatinine Glucose 161 H POC Glucose 231 H Hemoglobin A1c Lactic Acid Uric Acid Calcium Phosphorus Magnesium Alkaline Phosphatase Lactate Dehydrogenase C-Reactive Protein Total Protein Albumin Arterial Blood Glucose Urine WBC (Auto) Crossmatch 06/26/21 06/27/21 06/27/21 23:32 05:06 06:00 WBC 12.0 H RBC Hgb Hct MCHC Lymph % (Auto) [place] % (Auto) Lymph # (Auto) [place] # (Auto) Seg Neutrophils % Seg Neuts % (Manual) Lymphocytes % (Manual) Seg Neutrophils # Seg Neutrophils # Man Lymphocytes # (Manual) PT INR D-Dimer Heparin Anti-Xa Level ABG pH 7.480 H POC ABG pCO2 ABG pO2 ABG HCO3 ABG O2 Saturation ABG Base Excess ABG Hemoglobin 11.9 L ABG Oxyhemoglobin ABG Sodium 123.5 L ABG Chloride 91.0 L ABG Glucose 328 H Oxyhemoglobin Sodium 126 L Potassium Chloride 89.2 L Carbon Dioxide BUN 34 H Creatinine Glucose 257 H POC Glucose Hemoglobin A1c Lactic Acid Uric Acid Calcium Phosphorus Magnesium Alkaline Phosphatase Lactate Dehydrogenase C-Reactive Protein Total Protein Albumin Arterial Blood Glucose 328 H Urine WBC (Auto) Crossmatch 06/27/21 06/27/21 06/27/21 06:00 11:41 17:06 WBC RBC Hgb Hct MCHC Lymph % (Auto) [place] % (Auto) Lymph # (Auto) [place] # (Auto) Seg Neutrophils % Seg Neuts % (Manual) Lymphocytes % (Manual) Seg Neutrophils # Seg Neutrophils # Man Lymphocytes # (Manual) PT INR D-Dimer Heparin Anti-Xa Level ABG pH POC ABG pCO2 ABG pO2 ABG HCO3 ABG O2 Saturation ABG Base Excess ABG Hemoglobin ABG Oxyhemoglobin ABG Sodium ABG Chloride ABG Glucose Oxyhemoglobin Sodium 128 L Potassium Chloride 91.4 L Carbon Dioxide BUN 36 H Creatinine Glucose 346 H POC Glucose 259 H 301 H Hemoglobin A1c Lactic Acid Uric Acid Calcium Phosphorus Magnesium Alkaline Phosphatase Lactate Dehydrogenase C-Reactive Protein Total Protein Albumin Arterial Blood Glucose Urine WBC (Auto) Crossmatch 06/27/21 06/28/21 06/28/21 23:36 03:00 03:00 WBC 14.9 H RBC 3.46 L Hgb Hct MCHC Lymph % (Auto) 2.8 L [place] % (Auto) 7.5 H Lymph # (Auto) 0.4 L [place] # (Auto) 1.1 H Seg Neutrophils % 89.6 H Seg Neuts % (Manual) Lymphocytes % (Manual) Seg Neutrophils # 13.4 H Seg Neutrophils # Man Lymphocytes # (Manual) PT INR D-Dimer Heparin Anti-Xa Level ABG pH POC ABG pCO2 ABG pO2 ABG HCO3 ABG O2 Saturation ABG Base Excess ABG Hemoglobin ABG Oxyhemoglobin ABG Sodium ABG Chloride ABG Glucose Oxyhemoglobin Sodium 134 L Potassium Chloride 91.1 L Carbon Dioxide BUN 35 H Creatinine Glucose 235 H POC Glucose 215 H Hemoglobin A1c Lactic Acid Uric Acid Calcium Phosphorus 1.10 L Magnesium Alkaline Phosphatase Lactate Dehydrogenase C-Reactive Protein Total Protein Albumin Arterial Blood Glucose Urine WBC (Auto) Crossmatch 06/28/21 06/28/21 06/28/21 03:00 05:13 16:53 WBC RBC Hgb Hct MCHC Lymph % (Auto) [place] % (Auto) Lymph # (Auto) [place] # (Auto) Seg Neutrophils % Seg Neuts % (Manual) Lymphocytes % (Manual) Seg Neutrophils # Seg Neutrophils # Man Lymphocytes # (Manual) PT INR D-Dimer Heparin Anti-Xa Level 0.27 L ABG pH POC ABG pCO2 ABG pO2 ABG HCO3 ABG O2 Saturation ABG Base Excess ABG Hemoglobin ABG Oxyhemoglobin ABG Sodium ABG Chloride ABG Glucose Oxyhemoglobin Sodium Potassium Chloride Carbon Dioxide BUN Creatinine Glucose POC Glucose 241 H 213 H Hemoglobin A1c Lactic Acid Uric Acid Calcium Phosphorus Magnesium Alkaline Phosphatase Lactate Dehydrogenase C-Reactive Protein Total Protein Albumin Arterial Blood Glucose Urine WBC (Auto) Crossmatch 06/28/21 06/29/21 06/29/21 23:32 05:13 05:13 WBC RBC Hgb Hct MCHC Lymph % (Auto) [place] % (Auto) Lymph # (Auto) [place] # (Auto) Seg Neutrophils % Seg Neuts % (Manual) Lymphocytes % (Manual) Seg Neutrophils # Seg Neutrophils # Man Lymphocytes # (Manual) PT INR D-Dimer Heparin Anti-Xa Level 0.13 L ABG pH POC ABG pCO2 ABG pO2 ABG HCO3 ABG O2 Saturation ABG Base Excess ABG Hemoglobin ABG Oxyhemoglobin ABG Sodium ABG Chloride ABG Glucose Oxyhemoglobin Sodium 133 L Potassium Chloride Carbon Dioxide BUN 34 H Creatinine 0.5 L Glucose 186 H POC Glucose 236 H Hemoglobin A1c Lactic Acid Uric Acid Calcium Phosphorus 2.20 L D Magnesium Alkaline Phosphatase 31 L Lactate Dehydrogenase C-Reactive Protein Total Protein 3.3 L D Albumin 1.9 L Arterial Blood Glucose Urine WBC (Auto) Crossmatch 06/29/21 06/29/21 06/29/21 06:00 06:00 06:00 WBC 12.7 H RBC 3.36 L Hgb 10.0 L Hct MCHC Lymph % (Auto) 9.5 L [place] % (Auto) 8.6 H Lymph # (Auto) [place] # (Auto) 1.1 H Seg Neutrophils % 80.4 H Seg Neuts % (Manual) Lymphocytes % (Manual) Seg Neutrophils # 10.2 H Seg Neutrophils # Man Lymphocytes # (Manual) PT INR D-Dimer Heparin Anti-Xa Level 0.22 L ABG pH POC ABG pCO2 ABG pO2 ABG HCO3 ABG O2 Saturation ABG Base Excess ABG Hemoglobin ABG Oxyhemoglobin ABG Sodium ABG Chloride ABG Glucose Oxyhemoglobin Sodium 134 L Potassium Chloride 97.8 L Carbon Dioxide BUN 33 H Creatinine Glucose 189 H POC Glucose Hemoglobin A1c Lactic Acid Uric Acid Calcium Phosphorus Magnesium Alkaline Phosphatase Lactate Dehydrogenase C-Reactive Protein Total Protein Albumin Arterial Blood Glucose Urine WBC (Auto) Crossmatch 06/29/21 06/29/21 06/30/21 12:02 17:20 04:20 WBC 11.9 H RBC 3.37 L Hgb Hct MCHC Lymph % (Auto) 8.6 L [place] % (Auto) 8.3 H Lymph # (Auto) 1.0 L [place] # (Auto) 1.0 H Seg Neutrophils % 82.6 H Seg Neuts % (Manual) Lymphocytes % (Manual) Seg Neutrophils # 9.8 H Seg Neutrophils # Man Lymphocytes # (Manual) PT INR D-Dimer Heparin Anti-Xa Level ABG pH POC ABG pCO2 ABG pO2 ABG HCO3 ABG O2 Saturation ABG Base Excess ABG Hemoglobin ABG Oxyhemoglobin ABG Sodium ABG Chloride ABG Glucose Oxyhemoglobin Sodium Potassium Chloride Carbon Dioxide BUN Creatinine Glucose POC Glucose 249 H 172 H Hemoglobin A1c Lactic Acid Uric Acid Calcium Phosphorus Magnesium Alkaline Phosphatase Lactate Dehydrogenase C-Reactive Protein Total Protein Albumin Arterial Blood Glucose Urine WBC (Auto) Crossmatch 06/30/21 06/30/21 07/01/21 04:20 04:20 04:00 WBC RBC Hgb Hct MCHC Lymph % (Auto) [place] % (Auto) Lymph # (Auto) [place] # (Auto) Seg Neutrophils % Seg Neuts % (Manual) Lymphocytes % (Manual) Seg Neutrophils # Seg Neutrophils # Man Lymphocytes # (Manual) PT INR D-Dimer Heparin Anti-Xa Level 0.29 L 0.26 L ABG pH POC ABG pCO2 ABG pO2 ABG HCO3 ABG O2 Saturation ABG Base Excess ABG Hemoglobin ABG Oxyhemoglobin ABG Sodium ABG Chloride ABG Glucose Oxyhemoglobin Sodium Potassium Chloride Carbon Dioxide BUN 30 H Creatinine 0.5 L Glucose POC Glucose Hemoglobin A1c Lactic Acid Uric Acid Calcium Phosphorus Magnesium Alkaline Phosphatase Lactate Dehydrogenase C-Reactive Protein Total Protein Albumin Arterial Blood Glucose Urine WBC (Auto) Crossmatch 07/01/21 07/01/21 07/01/21 04:00 06:00 08:33 WBC RBC Hgb Hct MCHC Lymph % (Auto) [place] % (Auto) Lymph # (Auto) [place] # (Auto) Seg Neutrophils % Seg Neuts % (Manual) Lymphocytes % (Manual) Seg Neutrophils # Seg Neutrophils # Man Lymphocytes # (Manual) PT INR D-Dimer Heparin Anti-Xa Level ABG pH POC ABG pCO2 ABG pO2 ABG HCO3 ABG O2 Saturation ABG Base Excess ABG Hemoglobin ABG Oxyhemoglobin ABG Sodium ABG Chloride ABG Glucose Oxyhemoglobin Sodium Potassium Chloride Carbon Dioxide BUN 25 H Creatinine 0.4 L Glucose POC Glucose 69 L 131 H Hemoglobin A1c Lactic Acid Uric Acid Calcium Phosphorus Magnesium Alkaline Phosphatase Lactate Dehydrogenase C-Reactive Protein Total Protein Albumin Arterial Blood Glucose Urine WBC (Auto) Crossmatch 07/01/21 07/01/21 07/02/21 16:59 Unknown 05:23 WBC 12.2 H RBC 3.57 L Hgb Hct MCHC Lymph % (Auto) [place] % (Auto) Lymph # (Auto) [place] # (Auto) Seg Neutrophils % Seg Neuts % (Manual) Lymphocytes % (Manual) Seg Neutrophils # Seg Neutrophils # Man Lymphocytes # (Manual) PT INR D-Dimer Heparin Anti-Xa Level 0.29 L ABG pH POC ABG pCO2 ABG pO2 ABG HCO3 ABG O2 Saturation ABG Base Excess ABG Hemoglobin ABG Oxyhemoglobin ABG Sodium ABG Chloride ABG Glucose Oxyhemoglobin Sodium Potassium Chloride Carbon Dioxide BUN Creatinine Glucose POC Glucose 109 H Hemoglobin A1c Lactic Acid Uric Acid Calcium Phosphorus Magnesium Alkaline Phosphatase Lactate Dehydrogenase C-Reactive Protein Total Protein Albumin Arterial Blood Glucose Urine WBC (Auto) Crossmatch 07/02/21 07/02/21 07/02/21 05:23 05:23 05:29 WBC RBC 3.35 L Hgb Hct MCHC Lymph % (Auto) [place] % (Auto) Lymph # (Auto) [place] # (Auto) Seg Neutrophils % Seg Neuts % (Manual) Lymphocytes % (Manual) Seg Neutrophils # Seg Neutrophils # Man Lymphocytes # (Manual) PT INR D-Dimer Heparin Anti-Xa Level ABG pH POC ABG pCO2 ABG pO2 ABG HCO3 ABG O2 Saturation ABG Base Excess ABG Hemoglobin ABG Oxyhemoglobin ABG Sodium ABG Chloride ABG Glucose Oxyhemoglobin Sodium Potassium Chloride Carbon Dioxide 33 H BUN 21 H Creatinine 0.5 L Glucose 122 H POC Glucose 118 H Hemoglobin A1c Lactic Acid Uric Acid Calcium Phosphorus Magnesium Alkaline Phosphatase Lactate Dehydrogenase C-Reactive Protein Total Protein Albumin Arterial Blood Glucose Urine WBC (Auto) Crossmatch 07/02/21 07/02/21 07/02/21 11:38 18:08 23:27 WBC RBC Hgb Hct MCHC Lymph % (Auto) [place] % (Auto) Lymph # (Auto) [place] # (Auto) Seg Neutrophils % Seg Neuts % (Manual) Lymphocytes % (Manual) Seg Neutrophils # Seg Neutrophils # Man Lymphocytes # (Manual) PT INR D-Dimer Heparin Anti-Xa Level ABG pH POC ABG pCO2 ABG pO2 ABG HCO3 ABG O2 Saturation ABG Base Excess ABG Hemoglobin ABG Oxyhemoglobin ABG Sodium ABG Chloride ABG Glucose Oxyhemoglobin Sodium Potassium Chloride Carbon Dioxide BUN Creatinine Glucose POC Glucose 177 H 153 H 143 H Hemoglobin A1c Lactic Acid Uric Acid Calcium Phosphorus Magnesium Alkaline Phosphatase Lactate Dehydrogenase C-Reactive Protein Total Protein Albumin Arterial Blood Glucose Urine WBC (Auto) Crossmatch 07/03/21 07/03/21 07/03/21 04:09 07:57 10:59 WBC RBC Hgb Hct MCHC Lymph % (Auto) [place] % (Auto) Lymph # (Auto) [place] # (Auto) Seg Neutrophils % Seg Neuts % (Manual) Lymphocytes % (Manual) Seg Neutrophils # Seg Neutrophils # Man Lymphocytes # (Manual) PT INR D-Dimer Heparin Anti-Xa Level 1.90 H ABG pH POC ABG pCO2 ABG pO2 ABG HCO3 ABG O2 Saturation ABG Base Excess ABG Hemoglobin ABG Oxyhemoglobin ABG Sodium ABG Chloride ABG Glucose Oxyhemoglobin Sodium Potassium Chloride Carbon Dioxide BUN Creatinine Glucose POC Glucose 158 H 175 H Hemoglobin A1c Lactic Acid Uric Acid Calcium Phosphorus Magnesium Alkaline Phosphatase Lactate Dehydrogenase C-Reactive Protein Total Protein Albumin Arterial Blood Glucose Urine WBC (Auto) Crossmatch 07/03/21 07/03/21 07/04/21 15:40 23:45 04:52 WBC RBC Hgb Hct MCHC Lymph % (Auto) [place] % (Auto) Lymph # (Auto) [place] # (Auto) Seg Neutrophils % Seg Neuts % (Manual) Lymphocytes % (Manual) Seg Neutrophils # Seg Neutrophils # Man Lymphocytes # (Manual) PT INR D-Dimer Heparin Anti-Xa Level ABG pH POC ABG pCO2 ABG pO2 ABG HCO3 ABG O2 Saturation ABG Base Excess ABG Hemoglobin ABG Oxyhemoglobin ABG Sodium ABG Chloride ABG Glucose Oxyhemoglobin Sodium Potassium Chloride Carbon Dioxide BUN Creatinine Glucose POC Glucose 209 H 168 H 155 H Hemoglobin A1c Lactic Acid Uric Acid Calcium Phosphorus Magnesium Alkaline Phosphatase Lactate Dehydrogenase C-Reactive Protein Total Protein Albumin Arterial Blood Glucose Urine WBC (Auto) Crossmatch 07/04/21 07/04/21 07/04/21 05:26 05:26 12:01 WBC RBC 3.32 L Hgb 9.9 L Hct MCHC Lymph % (Auto) [place] % (Auto) Lymph # (Auto) [place] # (Auto) Seg Neutrophils % Seg Neuts % (Manual) Lymphocytes % (Manual) Seg Neutrophils # Seg Neutrophils # Man Lymphocytes # (Manual) PT INR D-Dimer Heparin Anti-Xa Level ABG pH POC ABG pCO2 ABG pO2 ABG HCO3 ABG O2 Saturation ABG Base Excess ABG Hemoglobin ABG Oxyhemoglobin ABG Sodium ABG Chloride ABG Glucose Oxyhemoglobin Sodium Potassium Chloride Carbon Dioxide 36 H BUN 35 H Creatinine 0.5 L Glucose 149 H POC Glucose 184 H Hemoglobin A1c Lactic Acid Uric Acid Calcium Phosphorus Magnesium Alkaline Phosphatase Lactate Dehydrogenase C-Reactive Protein Total Protein Albumin Arterial Blood Glucose Urine WBC (Auto) Crossmatch 07/04/21 07/04/21 07/05/21 17:14 22:15 06:54 WBC RBC Hgb Hct MCHC Lymph % (Auto) [place] % (Auto) Lymph # (Auto) [place] # (Auto) Seg Neutrophils % Seg Neuts % (Manual) Lymphocytes % (Manual) Seg Neutrophils # Seg Neutrophils # Man Lymphocytes # (Manual) PT INR D-Dimer Heparin Anti-Xa Level ABG pH POC ABG pCO2 ABG pO2 ABG HCO3 ABG O2 Saturation ABG Base Excess ABG Hemoglobin ABG Oxyhemoglobin ABG Sodium ABG Chloride ABG Glucose Oxyhemoglobin Sodium Potassium Chloride Carbon Dioxide BUN Creatinine Glucose POC Glucose 151 H 189 H 192 H Hemoglobin A1c Lactic Acid Uric Acid Calcium Phosphorus Magnesium Alkaline Phosphatase Lactate Dehydrogenase C-Reactive Protein Total Protein Albumin Arterial Blood Glucose Urine WBC (Auto) Crossmatch 07/05/21 07/05/21 07/05/21 11:14 17:15 21:49 WBC RBC Hgb Hct MCHC Lymph % (Auto) [place] % (Auto) Lymph # (Auto) [place] # (Auto) Seg Neutrophils % Seg Neuts % (Manual) Lymphocytes % (Manual) Seg Neutrophils # Seg Neutrophils # Man Lymphocytes # (Manual) PT INR D-Dimer Heparin Anti-Xa Level ABG pH POC ABG pCO2 ABG pO2 ABG HCO3 ABG O2 Saturation ABG Base Excess ABG Hemoglobin ABG Oxyhemoglobin ABG Sodium ABG Chloride ABG Glucose Oxyhemoglobin Sodium Potassium Chloride Carbon Dioxide BUN Creatinine Glucose POC Glucose 187 H 212 H 199 H Hemoglobin A1c Lactic Acid Uric Acid Calcium Phosphorus Magnesium Alkaline Phosphatase Lactate Dehydrogenase C-Reactive Protein Total Protein Albumin Arterial Blood Glucose Urine WBC (Auto) Crossmatch 07/06/21 07/06/21 07/06/21 06:15 07:04 11:58 WBC RBC 3.04 L Hgb 9.1 L Hct 29.0 L MCHC Lymph % (Auto) [place] % (Auto) Lymph # (Auto) [place] # (Auto) Seg Neutrophils % Seg Neuts % (Manual) Lymphocytes % (Manual) Seg Neutrophils # Seg Neutrophils # Man Lymphocytes # (Manual) PT INR D-Dimer Heparin Anti-Xa Level ABG pH POC ABG pCO2 ABG pO2 ABG HCO3 ABG O2 Saturation ABG Base Excess ABG Hemoglobin ABG Oxyhemoglobin ABG Sodium ABG Chloride ABG Glucose Oxyhemoglobin Sodium Potassium Chloride Carbon Dioxide BUN Creatinine Glucose POC Glucose 235 H 228 H Hemoglobin A1c Lactic Acid Uric Acid Calcium Phosphorus Magnesium Alkaline Phosphatase Lactate Dehydrogenase C-Reactive Protein Total Protein Albumin Arterial Blood Glucose Urine WBC (Auto) Crossmatch 07/06/21 07/06/21 07/06/21 16:00 16:47 23:19 WBC RBC Hgb Hct MCHC Lymph % (Auto) [place] % (Auto) Lymph # (Auto) [place] # (Auto) Seg Neutrophils % Seg Neuts % (Manual) Lymphocytes % (Manual) Seg Neutrophils # Seg Neutrophils # Man Lymphocytes # (Manual) PT INR D-Dimer Heparin Anti-Xa Level ABG pH POC ABG pCO2 ABG pO2 69.0 L ABG HCO3 46.7 H ABG O2 Saturation ABG Base Excess 19.7 H ABG Hemoglobin 8.1 L ABG Oxyhemoglobin ABG Sodium ABG Chloride ABG Glucose Oxyhemoglobin 93.4 L Sodium Potassium Chloride Carbon Dioxide BUN Creatinine Glucose POC Glucose 272 H 224 H Hemoglobin A1c Lactic Acid Uric Acid Calcium Phosphorus Magnesium Alkaline Phosphatase Lactate Dehydrogenase C-Reactive Protein Total Protein Albumin Arterial Blood Glucose Urine WBC (Auto) Crossmatch 07/07/21 07/07/21 07/07/21 11:40 14:44 15:50 WBC RBC Hgb Hct MCHC Lymph % (Auto) [place] % (Auto) Lymph # (Auto) [place] # (Auto) Seg Neutrophils % Seg Neuts % (Manual) Lymphocytes % (Manual) Seg Neutrophils # Seg Neutrophils # Man Lymphocytes # (Manual) PT INR D-Dimer Heparin Anti-Xa Level ABG pH POC ABG pCO2 ABG pO2 ABG HCO3 ABG O2 Saturation ABG Base Excess ABG Hemoglobin ABG Oxyhemoglobin ABG Sodium ABG Chloride ABG Glucose Oxyhemoglobin Sodium 152 H D Potassium Chloride Carbon Dioxide 45 H* D BUN 61 H Creatinine 0.5 L Glucose 224 H POC Glucose 174 H 210 H Hemoglobin A1c Lactic Acid Uric Acid Calcium Phosphorus Magnesium Alkaline Phosphatase Lactate Dehydrogenase C-Reactive Protein Total Protein Albumin Arterial Blood Glucose Urine WBC (Auto) Crossmatch 07/07/21 07/08/21 07/08/21 23:09 04:57 05:34 WBC RBC 2.91 L Hgb 8.8 L Hct 27.8 L MCHC Lymph % (Auto) [place] % (Auto) Lymph # (Auto) [place] # (Auto) Seg Neutrophils % Seg Neuts % (Manual) Lymphocytes % (Manual) Seg Neutrophils # Seg Neutrophils # Man Lymphocytes # (Manual) PT INR D-Dimer Heparin Anti-Xa Level ABG pH POC ABG pCO2 ABG pO2 ABG HCO3 ABG O2 Saturation ABG Base Excess ABG Hemoglobin ABG Oxyhemoglobin ABG Sodium ABG Chloride ABG Glucose Oxyhemoglobin Sodium Potassium Chloride Carbon Dioxide BUN Creatinine Glucose POC Glucose 188 H 156 H Hemoglobin A1c Lactic Acid Uric Acid Calcium Phosphorus Magnesium Alkaline Phosphatase Lactate Dehydrogenase C-Reactive Protein Total Protein Albumin Arterial Blood Glucose Urine WBC (Auto) Crossmatch 07/08/21 07/08/21 07/08/21 05:34 11:20 16:25 WBC RBC Hgb Hct MCHC Lymph % (Auto) [place] % (Auto) Lymph # (Auto) [place] # (Auto) Seg Neutrophils % Seg Neuts % (Manual) Lymphocytes % (Manual) Seg Neutrophils # Seg Neutrophils # Man Lymphocytes # (Manual) PT INR D-Dimer Heparin Anti-Xa Level ABG pH POC ABG pCO2 ABG pO2 ABG HCO3 ABG O2 Saturation ABG Base Excess ABG Hemoglobin ABG Oxyhemoglobin ABG Sodium ABG Chloride ABG Glucose Oxyhemoglobin Sodium 154 H Potassium Chloride Carbon Dioxide 44 H* BUN 55 H Creatinine 0.5 L Glucose 202 H POC Glucose 186 H 169 H Hemoglobin A1c Lactic Acid Uric Acid Calcium 10.4 H Phosphorus Magnesium Alkaline Phosphatase Lactate Dehydrogenase C-Reactive Protein Total Protein Albumin Arterial Blood Glucose Urine WBC (Auto) Crossmatch 07/08/21 07/09/21 07/09/21 23:49 05:08 10:18 WBC RBC 2.59 L Hgb 7.6 L Hct 24.9 L MCHC Lymph % (Auto) [place] % (Auto) Lymph # (Auto) [place] # (Auto) Seg Neutrophils % Seg Neuts % (Manual) Lymphocytes % (Manual) Seg Neutrophils # Seg Neutrophils # Man Lymphocytes # (Manual) PT INR D-Dimer Heparin Anti-Xa Level ABG pH POC ABG pCO2 ABG pO2 ABG HCO3 ABG O2 Saturation ABG Base Excess ABG Hemoglobin ABG Oxyhemoglobin ABG Sodium ABG Chloride ABG Glucose Oxyhemoglobin Sodium Potassium Chloride Carbon Dioxide BUN Creatinine Glucose POC Glucose 182 H 161 H Hemoglobin A1c Lactic Acid Uric Acid Calcium Phosphorus Magnesium Alkaline Phosphatase Lactate Dehydrogenase C-Reactive Protein Total Protein Albumin Arterial Blood Glucose Urine WBC (Auto) Crossmatch 07/09/21 07/09/21 07/09/21 10:18 12:36 16:53 WBC RBC Hgb Hct MCHC Lymph % (Auto) [place] % (Auto) Lymph # (Auto) [place] # (Auto) Seg Neutrophils % Seg Neuts % (Manual) Lymphocytes % (Manual) Seg Neutrophils # Seg Neutrophils # Man Lymphocytes # (Manual) PT INR D-Dimer Heparin Anti-Xa Level ABG pH POC ABG pCO2 ABG pO2 ABG HCO3 ABG O2 Saturation ABG Base Excess ABG Hemoglobin ABG Oxyhemoglobin ABG Sodium ABG Chloride ABG Glucose Oxyhemoglobin Sodium 152 H Potassium Chloride Carbon Dioxide 46 H* BUN 53 H Creatinine 0.5 L Glucose 211 H POC Glucose 182 H 189 H Hemoglobin A1c Lactic Acid Uric Acid Calcium 10.6 H Phosphorus Magnesium Alkaline Phosphatase Lactate Dehydrogenase C-Reactive Protein Total Protein Albumin Arterial Blood Glucose Urine WBC (Auto) Crossmatch 07/09/21 07/10/21 07/10/21 23:25 04:52 04:52 WBC RBC 2.23 L Hgb 6.7 L Hct 21.6 L MCHC Lymph % (Auto) [place] % (Auto) Lymph # (Auto) [place] # (Auto) Seg Neutrophils % Seg Neuts % (Manual) Lymphocytes % (Manual) Seg Neutrophils # Seg Neutrophils # Man Lymphocytes # (Manual) PT INR D-Dimer Heparin Anti-Xa Level ABG pH POC ABG pCO2 ABG pO2 ABG HCO3 ABG O2 Saturation ABG Base Excess ABG Hemoglobin ABG Oxyhemoglobin ABG Sodium ABG Chloride ABG Glucose Oxyhemoglobin Sodium 160 H D Potassium Chloride 108.7 H Carbon Dioxide 43 H* BUN 59 H Creatinine 0.5 L Glucose 222 H POC Glucose 189 H Hemoglobin A1c Lactic Acid Uric Acid Calcium Phosphorus Magnesium Alkaline Phosphatase Lactate Dehydrogenase C-Reactive Protein Total Protein Albumin Arterial Blood Glucose Urine WBC (Auto) Crossmatch 07/10/21 07/10/21 07/10/21 05:57 11:39 13:08 WBC RBC Hgb Hct MCHC Lymph % (Auto) [place] % (Auto) Lymph # (Auto) [place] # (Auto) Seg Neutrophils % Seg Neuts % (Manual) Lymphocytes % (Manual) Seg Neutrophils # Seg Neutrophils # Man Lymphocytes # (Manual) PT INR D-Dimer Heparin Anti-Xa Level ABG pH POC ABG pCO2 ABG pO2 ABG HCO3 ABG O2 Saturation ABG Base Excess ABG Hemoglobin ABG Oxyhemoglobin ABG Sodium ABG Chloride ABG Glucose Oxyhemoglobin Sodium Potassium Chloride Carbon Dioxide BUN Creatinine Glucose POC Glucose 179 H 174 H Hemoglobin A1c Lactic Acid Uric Acid Calcium Phosphorus Magnesium Alkaline Phosphatase Lactate Dehydrogenase C-Reactive Protein Total Protein Albumin Arterial Blood Glucose Urine WBC (Auto) Crossmatch See Detail 07/10/21 07/10/21 07/11/21 23:30 23:47 05:10 WBC RBC Hgb 8.1 L Hct 25.6 L MCHC Lymph % (Auto) [place] % (Auto) Lymph # (Auto) [place] # (Auto) Seg Neutrophils % Seg Neuts % (Manual) Lymphocytes % (Manual) Seg Neutrophils # Seg Neutrophils # Man Lymphocytes # (Manual) PT INR D-Dimer Heparin Anti-Xa Level ABG pH POC ABG pCO2 ABG pO2 ABG HCO3 ABG O2 Saturation ABG Base Excess ABG Hemoglobin ABG Oxyhemoglobin ABG Sodium ABG Chloride ABG Glucose Oxyhemoglobin Sodium Potassium Chloride Carbon Dioxide BUN Creatinine Glucose POC Glucose 230 H 190 H Hemoglobin A1c Lactic Acid Uric Acid Calcium Phosphorus Magnesium Alkaline Phosphatase Lactate Dehydrogenase C-Reactive Protein Total Protein Albumin Arterial Blood Glucose Urine WBC (Auto) Crossmatch Allied health notes reviewed: nursing
[2021-07-11] MEDS: FAMOTIDINE 20 MG TAB FEEDTUBE SCH ×2 (09:06→21:59)
[2021-07-11] MEDS: LISINOPRIL 10 MG TAB PO SCH (09:06)
[2021-07-11] MEDS: DOCUSATE SODIUM 100 MG/10 ML ORAL LIQD PO SCH ×2 (09:06→21:59)
[2021-07-11] MEDS: METOPROLOL TARTRATE 100 MG TAB PO SCH (09:06)
[2021-07-11] MEDS: CLOPIDOGREL 75 MG TAB PO SCH (09:06)
--- NOTE | 2021-07-11 10:47 | Progress Note ---
Assessment and Plan With low BPs, will reduce Metoprolol dose with hold parameters. DC Lisinopril for now while BP is low. Free water supplementation. - Patient Problems (1) Acute metabolic encephalopathy Current Visit: Yes Status: Acute (2) Acute hyponatremia Current Visit: Yes Status: Resolved (3) Hypernatremia Current Visit: Yes Status: Acute (4) Acute respiratory failure with hypoxemia Current Visit: Yes Status: Acute (5) Atrial fibrillation with rapid ventricular response Current Visit: Yes Status: Resolved (6) Hypertension Current Visit: Yes Status: Chronic Qualifiers: Hypertension type: primary hypertension Qualified Code(s): I10 - Essential (primary) hypertension (7) Diabetes mellitus Current Visit: Yes Status: Chronic Qualifiers: Diabetes mellitus type: type 2 Diabetes mellitus complication status: without complication (8) Anemia Current Visit: Yes Status: Acute (9) Community acquired pneumonia Current Visit: Yes Status: Acute Subjective Date of service: 07/11/21 Principal diagnosis: Acute encephalopathy, CAP, PAF with RVR, Acute resp failure, Hyponatremia Interval history: Confused. In sinus tachycardia. [place] BPs. Objective Vital Signs Last Vital Signs Temp 97.6 F 07/11/21 08:24 Pulse 87 07/11/21 08:24 Resp 22 07/11/21 08:24 BP 106/39 07/11/21 08:24 Pulse Ox 94 07/11/21 08:38 - Physical Examination General: No Apparent Distress HEENT: Positive: EOMI, Normocephaly, Mucus Membranes Moist, Mucus Membranes Dry Neck: Positive: neck supple, trachea midline Cardiac: Positive: Reg Rate and Rhythm, S1/S2 Lungs: Positive: clear to auscultation Neuro: Positive: Other (confused) Abdomen: Positive: Soft, Active Bowel Sounds. Negative: Tender Skin: Negative: Rash Musculoskeletal: Normal Range of Motion Extremities: Present: warm. Absent: edema - Labs and Meds CBC 07/10/21 Range/Units 23:47 Hgb 8.1 L (10.1-14.3) gm/dl Hct 25.6 L (30.3-42.9) % - Telemetry EKG Rhythm: Sinus Tachycardia - Allied health notes Allied health notes reviewed: nursing
[2021-07-11] MEDS ORDERED: METOPROLOL TARTRATE 100 MG TAB PO SCH (11:00)
[2021-07-11 16:04] LABS: BUN/Creatinine Ratio 93; Blood Urea Nitrogen 56 mg/dL (7-17); Calcium 10.2 mg/dL (8.4-10.2); Hemolysis Index 9
--- NOTE | 2021-07-11 16:25 | Progress Note ---
Assessment and Plan Assessment and plan: --Anemia: Gradual drop in hemoglobin 6.7, with 1 unit PRBC improved to 8.1 Patient's Eliquis is held, closely monitor H&H, additional transfusion if needed Consultants recommendations noted and appreciated We will try to contact patient's spouse Marshal Kelley at [phone] And will update patient's condition if he is available --Acute hypercapnic respiratory failure/nasal cannula oxygen/intermittent BiPAP Currently on nasal cannula at 5 L/min will wean as tolerated and BiPAP keep SpO2 >92%, -BiPAP at night likely 2/2 to CAP, Wean as tolerated Home O2 evaluation Wean off BiPAP as tolerated --Monitor hypercapnia; Patient needs supplemental oxygen and BiPAP at night --Atrial fibrillation rate controlled -continue metoprolol and eliquis held due to GI bleeding -Cardiology following, Continue current management --Hypertension/well-controlled Continue current antihypertensives As needed medications --Type 2 diabetes Accu-Chek sliding scale coverage ADA diet Long-acting insulin as needed Resolved problems --Severe hyponatremia- resolved ---Acute metabolic encephalopathy- likely 2/2 hyponatremia ---Urinary tract infection --Community-acquired pneumonia-s/p abx Disposition Plan: Continue medical management Continue to wean off a.m. dose a.m. dose. Amaryl moderate she gets awake because she is BiPAP Home O2 evaluation, home BiPAP at discharge We'll closely monitor the patient and adjust management as needed Plan of care reviewed with the patient and her nurse Also discussed the DC planning with case management group Consults and recommendations noted and appreciated Continue current management Home O2 evaluation and BiPAP at night and as needed during daytime Case management to assist with home O2/BiPAP at discharge 07/10/2021; continue current management Wean off BiPAP as tolerated, home O2 evaluation Home BiPAP if needed 07/11/21; chronic hypercapnic respiratory failure Patient may need BiPAP at night Continue current management Considered hospice/no resources for LTAC placement History Interval history: Have seen and examined the patient at the bedside Patient's chart and medications reviewed Patient is in chronic hypercapnic respiratory failure Receiving BiPAP at night No new complaints Hospitalist Physical - Constitutional Vitals: Temp Pulse Resp BP Pulse Ox 97.9 F 104 H 17 99/61 98 07/11/21 11:08 07/11/21 11:08 07/11/21 11:08 07/11/21 11:08 07/11/21 11:08 General appearance: Present: no acute distress, well-nourished, obese (Morbidly) - EENT Eyes: Present: PERRL, EOM intact - Neck Neck: Present: supple, normal ROM - Respiratory Respiratory effort: normal Respiratory: bilateral: diminished, negative: rales, rhonchi, wheezing - Cardiovascular Rhythm: regular Heart Sounds: Present: S1 & S2 - Extremities Extremities: no ischemia, No edema - Abdominal General gastrointestinal: soft, non-tender, non-distended, normal bowel sounds - Integumentary Integumentary: Present: clear, warm - Psychiatric Psychiatric: appropriate mood/affect, cooperative - Neurologic Neurologic: CNII-XII intact, moves all extremities HEART Score - HEART Score Troponin: Troponin T < 0.010 ng/mL (0.00-0.029) 06/22/21 07:58 Results - Labs CBC & Chem 7: 07/10/21 23:47 07/11/21 Unknown Labs: Laboratory Last Values WBC 9.1 K/mm3 (4.5-11.0) 07/10/21 04:52 RBC 2.23 M/mm3 (3.65-5.03) L 07/10/21 04:52 Hgb 8.1 gm/dl (10.1-14.3) L 07/10/21 23:47 Hct 25.6 % (30.3-42.9) L 07/10/21 23:47 MCV 97 fl (79-97) 07/10/21 04:52 MCH 30 pg (28-32) 07/10/21 04:52 MCHC 31 % (30-34) 07/10/21 04:52 RDW 14.9 % (13.2-15.2) 07/10/21 04:52 Plt Count 279 K/mm3 (140-440) 07/10/21 04:52 Lymph % (Auto) 8.6 % (13.4-35.0) L 06/30/21 04:20 Henry % (Auto) 8.3 % (0.0-7.3) H 06/30/21 04:20 Eos % (Auto) 0.5 % (0.0-4.3) 06/30/21 04:20 Baso % (Auto) 0.0 % (0.0-1.8) 06/30/21 04:20 Lymph # (Auto) 1.0 K/mm3 (1.2-5.4) L 06/30/21 04:20 Henry # (Auto) 1.0 K/mm3 (0.0-0.8) H 06/30/21 04:20 Eos # (Auto) 0.1 K/mm3 (0.0-0.4) 06/30/21 04:20 Baso # (Auto) 0.0 K/mm3 (0.0-0.1) 06/30/21 04:20 Add Manual Diff Complete 06/25/21 22:55 Total Counted 100 06/25/21 22:55 Seg Neutrophils % 82.6 % (40.0-70.0) H 06/30/21 04:20 Seg Neuts % (Manual) 91.0 % (40.0-70.0) H 06/25/21 22:55 Lymphocytes % (Manual) 6.0 % (13.4-35.0) L 06/25/21 22:55 Monocytes % (Manual) 3.0 % (0.0-7.3) 06/25/21 22:55 Metamyelocytes % 1.0 % 06/24/21 05:33 Nucleated RBC % Not Reportable 06/25/21 22:55 Seg Neutrophils # 9.8 K/mm3 (1.8-7.7) H 06/30/21 04:20 Seg Neutrophils # Man 13.5 K/mm3 (1.8-7.7) H 06/25/21 22:55 Band Neutrophils # 0.0 K/mm3 06/25/21 22:55 Lymphocytes # (Manual) 0.9 K/mm3 (1.2-5.4) L 06/25/21 22:55 Abs React Lymphs (Man) 0.0 K/mm3 06/25/21 22:55 Monocytes # (Manual) 0.4 K/mm3 (0.0-0.8) 06/25/21 22:55 Eosinophils # (Manual) 0.0 K/mm3 (0.0-0.4) 06/25/21 22:55 Basophils # (Manual) 0.0 K/mm3 (0.0-0.1) 06/25/21 22:55 Metamyelocytes # 0.0 K/mm3 06/25/21 22:55 Myelocytes # 0.0 K/mm3 06/25/21 22:55 Promyelocytes # 0.0 K/mm3 06/25/21 22:55 Blast Cells # 0.0 K/mm3 06/25/21 22:55 WBC Morphology Not Reportable 06/25/21 22:55 Hypersegmented Neuts Not Reportable 06/25/21 22:55 Hyposegmented Neuts Not Reportable 06/25/21 22:55 Hypogranular Neuts Not Reportable 06/25/21 22:55 Smudge Cells Not Reportable 06/25/21 22:55 Toxic Granulation Not Reportable 06/25/21 22:55 Toxic Vacuolation Not Reportable 06/25/21 22:55 Dohle Bodies Not Reportable 06/25/21 22:55 Pelger-Huet Anomaly Not Reportable 06/25/21 22:55 Otf Rods Not Reportable 06/25/21 22:55 Platelet Estimate Consistent w auto 06/25/21 22:55 Clumped Platelets Not Reportable 06/25/21 22:55 Plt Clumps, EDTA Not Reportable 06/25/21 22:55 Large Platelets Not Reportable 06/25/21 22:55 Giant Platelets Not Reportable 06/25/21 22:55 Platelet Satelliting Not Reportable 06/25/21 22:55 Plt Morphology Comment Not Reportable 06/25/21 22:55 RBC Morphology Normal 06/25/21 22:55 Dimorphic RBCs Not Reportable 06/25/21 22:55 Polychromasia Not Reportable 06/25/21 22:55 Hypochromasia Not Reportable 06/25/21 22:55 Poikilocytosis Not Reportable 06/25/21 22:55 Anisocytosis Not Reportable 06/25/21 22:55 Microcytosis Not Reportable 06/25/21 22:55 Macrocytosis Not Reportable 06/25/21 22:55 Spherocytes Not Reportable 06/25/21 22:55 Pappenheimer Bodies Not Reportable 06/25/21 22:55 Sickle Cells Not Reportable 06/25/21 22:55 Target Cells Not Reportable 06/25/21 22:55 Tear Drop Cells Not Reportable 06/25/21 22:55 Ovalocytes Not Reportable 06/25/21 22:55 Helmet Cells Not Reportable 06/25/21 22:55 [place] Bodies Not Reportable 06/25/21 22:55 [place] Rings Not Reportable 06/25/21 22:55 William Cells Not Reportable 06/25/21 22:55 Bite Cells Not Reportable 06/25/21 22:55 Crenated Cell Not Reportable 06/25/21 22:55 Elliptocytes Not Reportable 06/25/21 22:55 Acanthocytes (Spur) Not Reportable 06/25/21 22:55 Rouleaux Not Reportable 06/25/21 22:55 Hemoglobin C Crystals Not Reportable 06/25/21 22:55 Schistocytes Not Reportable 06/25/21 22:55 Malaria parasites Not Reportable 06/25/21 22:55 Steve Bodies Not Reportable 06/25/21 22:55 Hem Pathologist Commnt No 06/25/21 22:55 PT 13.0 Sec. (12.2-14.9) 07/02/21 05:30 INR 0.88 (0.87-1.13) 07/02/21 05:30 APTT TNR 07/02/21 05:30 Thrombin Time 15.9 Sec. (15.1-19.6) 06/22/21 07:58 D-Dimer 390 ng/mlDDU (0-234) H 06/22/21 08:56 Heparin Anti-Xa Level 1.90 U.I./ml (0.3-0.7) H 07/03/21 04:09 ABG pH 7.415 pH Units (7.350-7.450) 07/06/21 16:00 POC ABG pCO2 38.0 mmHg (32.0-48.0) 06/27/21 05:06 ABG pCO2 74.5 mm Hg 07/06/21 16:00 POC ABG pO2 93.6 mmHg (83-108) 06/27/21 05:06 ABG pO2 69.0 mm Hg (80.0-90.0) L 07/06/21 16:00 POC ABG HCO3 27.7 06/27/21 05:06 ABG HCO3 46.7 mmol/L (20.0-26.0) H 07/06/21 16:00 ABG O2 Saturation 95.2 % (95.0-99.0) 07/06/21 16:00 ABG O2 Content 10.8 (0.0-44) 07/06/21 16:00 POC ABG Base Excess 4.0 06/27/21 05:06 ABG Base Excess 19.7 mmol/L (-2.0-3.0) H 07/06/21 16:00 ABG Hemoglobin 8.1 gm/dl (12.0-16.0) L 07/06/21 16:00 ABG Oxyhemoglobin 96.8 (94-98) 06/27/21 05:06 ABG Carboxyhemoglobin 1.7 % (0.0-5.0) 07/06/21 16:00 ABG Methemoglobin 0.2 % (0.0-1.5) 07/06/21 16:00 ABG Sodium 123.5 mmol/L (136.0-145.0) L 06/27/21 05:06 ABG Potassium 3.7 mmol/L (3.40-4.50) 06/27/21 05:06 ABG Chloride 91.0 mmol/L (98-107) L 06/27/21 05:06 ABG Glucose 328 mg/dL (65-95) H 06/27/21 05:06 Oxyhemoglobin 93.4 % (95.0-99.0) L 07/06/21 16:00 Carboxyhemoglobin 0.9 (0.5-1.5) 06/27/21 05:06 FiO2 40 % 07/06/21 16:00 FiO2 % 40.0 06/27/21 05:06 Sodium 160 mmol/L (137-145) H 07/11/21 Unknown Potassium 3.9 mmol/L (3.6-5.0) 07/11/21 Unknown Chloride 109.2 mmol/L (98-107) H 07/11/21 Unknown Carbon Dioxide 44 mmol/L (22-30) H* 07/11/21 Unknown Anion Gap 11 mmol/L 07/11/21 Unknown BUN 56 mg/dL (7-17) H 07/11/21 Unknown Creatinine 0.6 mg/dL (0.6-1.2) 07/11/21 Unknown Estimated GFR > 60 ml/min 07/11/21 Unknown BUN/Creatinine Ratio 93 % 07/11/21 Unknown Glucose 170 mg/dL (65-100) H 07/11/21 Unknown POC Glucose 161 mg/dL (70-105) H 07/11/21 11:56 Hemoglobin A1c 6.6 % (4-6) H 06/23/21 05:29 Osmolality 240 Mosm/kg 06/22/21 23:24 Lactic Acid 1.60 mmol/L (0.7-2.0) 06/25/21 22:55 Uric Acid 3.2 mg/dL (3.5-7.6) L 06/23/21 05:29 Calcium 10.2 mg/dL (8.4-10.2) 07/11/21 Unknown Phosphorus 3.10 mg/dL (2.5-4.5) 07/02/21 05:23 Magnesium 1.80 mg/dL (1.7-2.3) 07/02/21 05:23 Ferritin 102.1 ng/mL (10.0-200.0) 06/22/21 08:56 Total Bilirubin 0.30 mg/dL (0.1-1.2) 06/29/21 05:13 Direct Bilirubin < 0.2 mg/dL (0-0.2) 06/26/21 04:32 Indirect Bilirubin 0.1 mg/dL 06/26/21 04:32 AST 12 units/L (5-40) 06/29/21 05:13 ALT 9 units/L (7-56) 06/29/21 05:13 Alkaline Phosphatase 31 units/L (35-129) L 06/29/21 05:13 Lactate Dehydrogenase 220 units/L (91-180) H 06/22/21 08:56 Troponin T < 0.010 ng/mL (0.00-0.029) 06/22/21 07:58 C-Reactive Protein 5.40 mg/dL (0.00-1.30) H 06/22/21 08:56 Total Protein 3.3 g/dL (6.3-8.2) L D 06/29/21 05:13 Albumin 1.9 g/dL (3.9-5) L 06/29/21 05:13 Albumin/Globulin Ratio 1.4 % 06/29/21 05:13 Procalcitonin < 0.05 ng/mL (<0.15) 06/22/21 08:56 TSH 1.070 mlU/mL (0.270-4.200) 06/22/21 07:58 Total Cortisol 36.4 mcg/dL () 06/26/21 16:06 Arterial Blood Glucose 328 mg/dL (65-95) H 06/27/21 05:06 Arterial Blood Ionized Calcium 4.9 mg/dL (4.6-5.3) 06/27/21 05:06 Urine Color Yellow (Yellow) 06/26/21 09:48 Urine Turbidity Slightly-cloudy (Clear) 06/26/21 09:48 Urine pH 6.0 (5.0-7.0) 06/26/21 09:48 Ur Specific [place] 1.014 (1.003-1.030) 06/26/21 09:48 Urine Protein 30 mg/dl mg/dL (Negative) 06/26/21 09:48 Urine Glucose (UA) 50 mg/dL (Negative) 06/26/21 09:48 Urine Ketones 20 mg/dL (Negative) 06/26/21 09:48 Urine Blood Mod (Negative) 06/26/21 09:48 Urine Nitrite Neg (Negative) 06/26/21 09:48 Urine Bilirubin Neg (Negative) 06/26/21 09:48 Urine Urobilinogen < 2.0 mg/dL (<2.0) 06/26/21 09:48 Ur Leukocyte Esterase Mod (Negative) 06/26/21 09:48 Urine WBC (Auto) 69.0 /HPF (0.0-6.0) H 06/26/21 09:48 Urine RBC (Auto) 29.0 /HPF (0.0-6.0) 06/26/21 09:48 U Epithel Cells (Auto) 1.0 /HPF (0-13.0) 06/26/21 09:48 Urine Bacteria (Auto) 4+ /HPF (Negative) 06/26/21 09:48 Ur Transition Epith Cell 1 /HPF 06/22/21 11:47 Hyaline Casts 5 /LPF 06/22/21 11:47 Urine Mucus Few /HPF 06/26/21 09:48 Urine Yeast (Budding) 3+ /HPF 06/26/21 09:48 Urine Osmolality 571 Mosm/kg 06/22/21 11:47 Urine Sodium 25 mmol/L 06/22/21 11:47 Coronavirus (PCR) Negative (Negative) 07/08/21 Unknown Blood Type B POSITIVE 07/10/21 13:08 Antibody Screen Negative 07/10/21 13:08 Crossmatch See Detail 07/10/21 13:08 Martines/IV: Voiding Method External Female Catheter Active Medications - Current Medications Current Medications: Generic Name Dose Route Start Last Admin Trade Name Freq PRN Reason Stop Dose Admin Acetaminophen 650 mg 06/22/21 22:21 07/08/21 12:08 Acetaminophen 325 Mg Tab PO 650 mg Q4H PRN Administration Pain MILD(1-3)/Fever >100.5/NAVA Lipase/Protease/Amylase 1 each 06/29/21 16:20 Lipase 10,500/Protease 25,000/Amylase 43,750 (Units) Dr Castellanos FEEDTUBE PRN PRN For Clogged Feeding Tube Clopidogrel Bisulfate 75 mg 06/23/21 10:00 07/11/21 09:06 Clopidogrel 75 Mg Tab PO 75 mg DAILY JUDY Administration Docusate Sodium 100 mg 06/25/21 22:00 07/11/21 09:06 Docusate Sodium 100 Mg/10 Ml Oral Liqd PO 100 mg BID JUDY Administration Famotidine 20 mg 06/29/21 22:00 07/11/21 09:06 Famotidine 20 Mg Tab FEEDTUBE 20 mg BID JUDY Administration Insulin Human Lispro 0 unit 06/26/21 12:00 07/11/21 12:07 Insulin Lispro 100 Unit/Ml SUB-Q 3 unit Q6HR JUDY Administration Protocol Metoclopramide HCl 10 mg 06/22/21 22:21 Metoclopramide 10 Mg/2 Ml Inj IV Q6H PRN Nausea And Vomiting Metoprolol Tartrate 25 mg 07/11/21 18:00 Metoprolol Tartrate 25 Mg Tab PO Q6HR JUDY Ondansetron HCl 4 mg 06/22/21 22:21 Ondansetron 4 Mg/2 Ml Inj IV Q8H PRN Nausea And Vomiting Pravastatin Sodium 40 mg 06/23/21 22:00 07/10/21 22:10 Pravastatin 40 Mg Tab PO 40 mg QHS JUDY Administration Simple Syrup 15 ml 06/29/21 16:20 Simple Syrup 15 Ml FEEDTUBE PRN PRN Hypoglycemia Simple Syrup 30 ml 06/29/21 16:20 Simple Syrup 15 Ml FEEDTUBE PRN PRN Hypoglycemia Sodium Bicarbonate 325 mg 06/29/21 16:20 Sodium Bicarbonate 325 Mg Tab FEEDTUBE PRN PRN For Clogged Feeding Tube Sodium Chloride 10 ml 06/23/21 10:00 07/11/21 09:07 Sodium Chloride 0.9% 10 Ml Flush Syringe IV 10 ml BID JUDY Administration Sodium Chloride 10 ml 06/22/21 22:21 Sodium Chloride 0.9% 10 Ml Flush Syringe IV PRN PRN LINE FLUSH Nutrition/Malnutrition Assess - Dietary Evaluation Nutrition/Malnutrition Findings: Nutrition Notes Start: 06/26/21 11:01 Freq: Status: Active Protocol: Document 07/08/21 17:32 VINCENZO (Rec: 07/08/21 17:40 VINCENZO [id number]) Nutrition Notes Initial or Follow up Brief Note Current Diet TF-Vital High Protein @ 50 ml/ hr (since D 06/29). Height 5 ft 5 in Weight 114.4 kg [place] Body Weight (kg) 56.81 BMI 41.9 Weight change and time frame Discrepancy of 28.217 Kg body weight change in 1 week reported. Weight Status Morbidly Obese Subjective/Other Information RD consult for routine F/U on TF tolerance. TF continues without changes, thus, well tolerated. Percent of energy/protein needs met: Prescribed Vital High Protein @ 50 ml/hr provides for energy /protein needs (1,200 Kcal/105 g) during LOS, 100% Kcal; 90% AA. Current % PO Other Minimum of two criteria No #1 Nutrition Diagnosis Inadequate oral intake Diagnosis Progress(for reassessment Continues documentation) Nutrition Intervention Nutrition Support: Continue Vital High Protein @ 50 ml/hr. Flush: 50 ml water Q 4 hr. Kcal 1,200 Protein (gm) 105 Carbohydrates (gm) 134 Fat (gm) 28 Fluid (mL) 1,003 Fiber (gm) 0 % RDI: 100% Kcal; 90% AA. Goal #1 Provide at least 75% of energy /protein needs through Enteral Feeding during LOS. Follow-Up By: 07/14/21 Additional Comments Continue monitoring TF tolerance and BM.
[2021-07-11] MEDS: METOPROLOL TARTRATE 25 MG TAB PO SCH (17:06)
[2021-07-11] MEDS: PRAVASTATIN 40 MG TAB PO SCH (21:59)
--- NOTE | 2021-07-11 23:55 | Progress Note ---
Assessment and Plan Assessment and plan: --Anemia: Gradual drop in hemoglobin 6.7, with 1 unit PRBC improved to 8.1 Patient's Eliquis is held, closely monitor H&H, additional transfusion if needed Consultants recommendations noted and appreciated We will try to contact patient's spouse Marshal Kelley at [phone] And will update patient's condition if he is available --Acute hypercapnic respiratory failure/nasal cannula oxygen/intermittent BiPAP Currently on nasal cannula at 5 L/min will wean as tolerated and BiPAP keep SpO2 >92%, -BiPAP at night likely 2/2 to CAP, Wean as tolerated Home O2 evaluation Wean off BiPAP as tolerated --Monitor hypercapnia; Patient needs supplemental oxygen and BiPAP at night --Atrial fibrillation rate controlled -continue metoprolol and eliquis held due to GI bleeding -Cardiology following, Continue current management --Hypertension/well-controlled Continue current antihypertensives As needed medications --Type 2 diabetes Accu-Chek sliding scale coverage ADA diet Long-acting insulin as needed Resolved problems --Severe hyponatremia- resolved ---Acute metabolic encephalopathy- likely 2/2 hyponatremia ---Urinary tract infection --Community-acquired pneumonia-s/p abx Disposition Plan: Continue medical management Continue to wean off a.m. dose a.m. dose. Amaryl moderate she gets awake because she is BiPAP Home O2 evaluation, home BiPAP at discharge We'll closely monitor the patient and adjust management as needed Plan of care reviewed with the patient and her nurse Also discussed the DC planning with case management group Consults and recommendations noted and appreciated Continue current management Home O2 evaluation and BiPAP at night and as needed during daytime Case management to assist with home O2/BiPAP at discharge 07/10/2021; continue current management Wean off BiPAP as tolerated, home O2 evaluation Home BiPAP if needed 07/11/21; chronic hypercapnic respiratory failure Patient may need BiPAP at night Continue current management Considered hospice/no resources for LTAC placement 07/12/2021; patient has intermittent pauses and tachycardia Resolved after adjusting BiPAP settings, Hb dropped 8.1 -7.2 Closely monitor H&H and transfuse as needed History Interval history: I have seen and examined the patient at the bedside Patient's chart and medications reviewed Patient was having intermittent pauses with tachycardia patient patient was slightly in distress However after respiratory therapy was called and after adjusting the BiPAP. Patient's symptoms resolved Cardiology is following .patient baseline is confusion Hospitalist Physical - Constitutional Vitals: Temp Pulse Resp BP Pulse Ox 98.6 F 109 H 19 103/54 76 L 07/11/21 19:27 07/11/21 19:27 07/11/21 19:27 07/11/21 19:27 07/11/21 19:27 General appearance: Present: no acute distress, well-nourished, obese (Morbidly), other (Mild lethargy) - EENT Eyes: Present: PERRL, EOM intact - Neck Neck: Present: supple, normal ROM - Respiratory Respiratory effort: normal Respiratory: bilateral: diminished, rhonchi, negative: rales, wheezing - Cardiovascular Rhythm: regular Heart Sounds: Present: S1 & S2 - Extremities Extremities: no ischemia, No edema - Abdominal General gastrointestinal: soft, non-tender, non-distended, normal bowel sounds - Integumentary Integumentary: Present: clear, warm - Psychiatric Psychiatric: appropriate mood/affect, cooperative - Neurologic Neurologic: CNII-XII intact, moves all extremities HEART Score - HEART Score Troponin: Troponin T < 0.010 ng/mL (0.00-0.029) 06/22/21 07:58 Results - Labs CBC & Chem 7: 07/12/21 05:33 07/12/21 05:33 Labs: Laboratory Last Values WBC 9.1 K/mm3 (4.5-11.0) 07/10/21 04:52 RBC 2.23 M/mm3 (3.65-5.03) L 07/10/21 04:52 Hgb 8.1 gm/dl (10.1-14.3) L 07/10/21 23:47 Hct 25.6 % (30.3-42.9) L 07/10/21 23:47 MCV 97 fl (79-97) 07/10/21 04:52 MCH 30 pg (28-32) 07/10/21 04:52 MCHC 31 % (30-34) 07/10/21 04:52 RDW 14.9 % (13.2-15.2) 07/10/21 04:52 Plt Count 279 K/mm3 (140-440) 07/10/21 04:52 Lymph % (Auto) 8.6 % (13.4-35.0) L 06/30/21 04:20 [place] % (Auto) 8.3 % (0.0-7.3) H 06/30/21 04:20 Eos % (Auto) 0.5 % (0.0-4.3) 06/30/21 04:20 Baso % (Auto) 0.0 % (0.0-1.8) 06/30/21 04:20 Lymph # (Auto) 1.0 K/mm3 (1.2-5.4) L 06/30/21 04:20 [place] # (Auto) 1.0 K/mm3 (0.0-0.8) H 06/30/21 04:20 Eos # (Auto) 0.1 K/mm3 (0.0-0.4) 06/30/21 04:20 Baso # (Auto) 0.0 K/mm3 (0.0-0.1) 06/30/21 04:20 Add Manual Diff Complete 06/25/21 22:55 Total Counted 100 06/25/21 22:55 Seg Neutrophils % 82.6 % (40.0-70.0) H 06/30/21 04:20 Seg Neuts % (Manual) 91.0 % (40.0-70.0) H 06/25/21 22:55 Lymphocytes % (Manual) 6.0 % (13.4-35.0) L 06/25/21 22:55 Monocytes % (Manual) 3.0 % (0.0-7.3) 06/25/21 22:55 Metamyelocytes % 1.0 % 06/24/21 05:33 Nucleated RBC % Not Reportable 06/25/21 22:55 Seg Neutrophils # 9.8 K/mm3 (1.8-7.7) H 06/30/21 04:20 Seg Neutrophils # Man 13.5 K/mm3 (1.8-7.7) H 06/25/21 22:55 Band Neutrophils # 0.0 K/mm3 06/25/21 22:55 Lymphocytes # (Manual) 0.9 K/mm3 (1.2-5.4) L 06/25/21 22:55 Abs React Lymphs (Man) 0.0 K/mm3 06/25/21 22:55 Monocytes # (Manual) 0.4 K/mm3 (0.0-0.8) 06/25/21 22:55 Eosinophils # (Manual) 0.0 K/mm3 (0.0-0.4) 06/25/21 22:55 Basophils # (Manual) 0.0 K/mm3 (0.0-0.1) 06/25/21 22:55 Metamyelocytes # 0.0 K/mm3 06/25/21 22:55 Myelocytes # 0.0 K/mm3 06/25/21 22:55 Promyelocytes # 0.0 K/mm3 06/25/21 22:55 Blast Cells # 0.0 K/mm3 06/25/21 22:55 WBC Morphology Not Reportable 06/25/21 22:55 Hypersegmented Neuts Not Reportable 06/25/21 22:55 Hyposegmented Neuts Not Reportable 06/25/21 22:55 Hypogranular Neuts Not Reportable 06/25/21 22:55 Smudge Cells Not Reportable 06/25/21 22:55 Toxic Granulation Not Reportable 06/25/21 22:55 Toxic Vacuolation Not Reportable 06/25/21 22:55 Dohle Bodies Not Reportable 06/25/21 22:55 Pelger-Huet Anomaly Not Reportable 06/25/21 22:55 Otf Rods Not Reportable 06/25/21 22:55 Platelet Estimate Consistent w auto 06/25/21 22:55 Clumped Platelets Not Reportable 06/25/21 22:55 Plt Clumps, EDTA Not Reportable 06/25/21 22:55 Large Platelets Not Reportable 06/25/21 22:55 Giant Platelets Not Reportable 06/25/21 22:55 Platelet Satelliting Not Reportable 06/25/21 22:55 Plt Morphology Comment Not Reportable 06/25/21 22:55 RBC Morphology Normal 06/25/21 22:55 Dimorphic RBCs Not Reportable 06/25/21 22:55 Polychromasia Not Reportable 06/25/21 22:55 Hypochromasia Not Reportable 06/25/21 22:55 Poikilocytosis Not Reportable 06/25/21 22:55 Anisocytosis Not Reportable 06/25/21 22:55 Microcytosis Not Reportable 06/25/21 22:55 Macrocytosis Not Reportable 06/25/21 22:55 Spherocytes Not Reportable 06/25/21 22:55 Pappenheimer Bodies Not Reportable 06/25/21 22:55 Sickle Cells Not Reportable 06/25/21 22:55 Target Cells Not Reportable 06/25/21 22:55 Tear Drop Cells Not Reportable 06/25/21 22:55 Ovalocytes Not Reportable 06/25/21 22:55 Helmet Cells Not Reportable 06/25/21 22:55 [place] Bodies Not Reportable 06/25/21 22:55 [place] Rings Not Reportable 06/25/21 22:55 [place] Cells Not Reportable 06/25/21 22:55 Bite Cells Not Reportable 06/25/21 22:55 Crenated Cell Not Reportable 06/25/21 22:55 Elliptocytes Not Reportable 06/25/21 22:55 Acanthocytes (Spur) Not Reportable 06/25/21 22:55 Rouleaux Not Reportable 06/25/21 22:55 Hemoglobin C Crystals Not Reportable 06/25/21 22:55 Schistocytes Not Reportable 06/25/21 22:55 Malaria parasites Not Reportable 06/25/21 22:55 Steve Bodies Not Reportable 06/25/21 22:55 Hem Pathologist Commnt No 06/25/21 22:55 PT 13.0 Sec. (12.2-14.9) 07/02/21 05:30 INR 0.88 (0.87-1.13) 07/02/21 05:30 APTT TNR 07/02/21 05:30 Thrombin Time 15.9 Sec. (15.1-19.6) 06/22/21 07:58 D-Dimer 390 ng/mlDDU (0-234) H 06/22/21 08:56 Heparin Anti-Xa Level 1.90 U.I./ml (0.3-0.7) H 07/03/21 04:09 ABG pH 7.415 pH Units (7.350-7.450) 07/06/21 16:00 POC ABG pCO2 38.0 mmHg (32.0-48.0) 06/27/21 05:06 ABG pCO2 74.5 mm Hg 07/06/21 16:00 POC ABG pO2 93.6 mmHg (83-108) 06/27/21 05:06 ABG pO2 69.0 mm Hg (80.0-90.0) L 07/06/21 16:00 POC ABG HCO3 27.7 06/27/21 05:06 ABG HCO3 46.7 mmol/L (20.0-26.0) H 07/06/21 16:00 ABG O2 Saturation 95.2 % (95.0-99.0) 07/06/21 16:00 ABG O2 Content 10.8 (0.0-44) 07/06/21 16:00 POC ABG Base Excess 4.0 06/27/21 05:06 ABG Base Excess 19.7 mmol/L (-2.0-3.0) H 07/06/21 16:00 ABG Hemoglobin 8.1 gm/dl (12.0-16.0) L 07/06/21 16:00 ABG Oxyhemoglobin 96.8 (94-98) 06/27/21 05:06 ABG Carboxyhemoglobin 1.7 % (0.0-5.0) 07/06/21 16:00 ABG Methemoglobin 0.2 % (0.0-1.5) 07/06/21 16:00 ABG Sodium 123.5 mmol/L (136.0-145.0) L 06/27/21 05:06 ABG Potassium 3.7 mmol/L (3.40-4.50) 06/27/21 05:06 ABG Chloride 91.0 mmol/L (98-107) L 06/27/21 05:06 ABG Glucose 328 mg/dL (65-95) H 06/27/21 05:06 Oxyhemoglobin 93.4 % (95.0-99.0) L 07/06/21 16:00 Carboxyhemoglobin 0.9 (0.5-1.5) 06/27/21 05:06 FiO2 40 % 07/06/21 16:00 FiO2 % 40.0 06/27/21 05:06 Sodium 160 mmol/L (137-145) H 07/11/21 Unknown Potassium 3.9 mmol/L (3.6-5.0) 07/11/21 Unknown Chloride 109.2 mmol/L (98-107) H 07/11/21 Unknown Carbon Dioxide 44 mmol/L (22-30) H* 07/11/21 Unknown Anion Gap 11 mmol/L 07/11/21 Unknown BUN 56 mg/dL (7-17) H 07/11/21 Unknown Creatinine 0.6 mg/dL (0.6-1.2) 07/11/21 Unknown Estimated GFR > 60 ml/min 07/11/21 Unknown BUN/Creatinine Ratio 93 % 07/11/21 Unknown Glucose 170 mg/dL (65-100) H 07/11/21 Unknown POC Glucose 196 mg/dL (70-105) H 07/11/21 22:55 Hemoglobin A1c 6.6 % (4-6) H 06/23/21 05:29 Osmolality 240 Mosm/kg 06/22/21 23:24 Lactic Acid 1.60 mmol/L (0.7-2.0) 06/25/21 22:55 Uric Acid 3.2 mg/dL (3.5-7.6) L 06/23/21 05:29 Calcium 10.2 mg/dL (8.4-10.2) 07/11/21 Unknown Phosphorus 3.10 mg/dL (2.5-4.5) 07/02/21 05:23 Magnesium 1.80 mg/dL (1.7-2.3) 07/02/21 05:23 Ferritin 102.1 ng/mL (10.0-200.0) 06/22/21 08:56 Total Bilirubin 0.30 mg/dL (0.1-1.2) 06/29/21 05:13 Direct Bilirubin < 0.2 mg/dL (0-0.2) 06/26/21 04:32 Indirect Bilirubin 0.1 mg/dL 06/26/21 04:32 AST 12 units/L (5-40) 06/29/21 05:13 ALT 9 units/L (7-56) 06/29/21 05:13 Alkaline Phosphatase 31 units/L (35-129) L 06/29/21 05:13 Lactate Dehydrogenase 220 units/L (91-180) H 06/22/21 08:56 Troponin T < 0.010 ng/mL (0.00-0.029) 06/22/21 07:58 C-Reactive Protein 5.40 mg/dL (0.00-1.30) H 06/22/21 08:56 Total Protein 3.3 g/dL (6.3-8.2) L D 06/29/21 05:13 Albumin 1.9 g/dL (3.9-5) L 06/29/21 05:13 Albumin/Globulin Ratio 1.4 % 06/29/21 05:13 Procalcitonin < 0.05 ng/mL (<0.15) 06/22/21 08:56 TSH 1.070 mlU/mL (0.270-4.200) 06/22/21 07:58 Total Cortisol 36.4 mcg/dL () 06/26/21 16:06 Arterial Blood Glucose 328 mg/dL (65-95) H 06/27/21 05:06 Arterial Blood Ionized Calcium 4.9 mg/dL (4.6-5.3) 06/27/21 05:06 Urine Color Yellow (Yellow) 06/26/21 09:48 Urine Turbidity Slightly-cloudy (Clear) 06/26/21 09:48 Urine pH 6.0 (5.0-7.0) 06/26/21 09:48 Ur Specific [place] 1.014 (1.003-1.030) 06/26/21 09:48 Urine Protein 30 mg/dl mg/dL (Negative) 06/26/21 09:48 Urine Glucose (UA) 50 mg/dL (Negative) 06/26/21 09:48 Urine Ketones 20 mg/dL (Negative) 06/26/21 09:48 Urine Blood Mod (Negative) 06/26/21 09:48 Urine Nitrite Neg (Negative) 06/26/21 09:48 Urine Bilirubin Neg (Negative) 06/26/21 09:48 Urine Urobilinogen < 2.0 mg/dL (<2.0) 06/26/21 09:48 Ur Leukocyte Esterase Mod (Negative) 06/26/21 09:48 Urine WBC (Auto) 69.0 /HPF (0.0-6.0) H 06/26/21 09:48 Urine RBC (Auto) 29.0 /HPF (0.0-6.0) 06/26/21 09:48 U Epithel Cells (Auto) 1.0 /HPF (0-13.0) 06/26/21 09:48 Urine Bacteria (Auto) 4+ /HPF (Negative) 06/26/21 09:48 Ur Transition Epith Cell 1 /HPF 06/22/21 11:47 Hyaline Casts 5 /LPF 06/22/21 11:47 Urine Mucus Few /HPF 06/26/21 09:48 Urine Yeast (Budding) 3+ /HPF 06/26/21 09:48 Urine Osmolality 571 Mosm/kg 06/22/21 11:47 Urine Sodium 25 mmol/L 06/22/21 11:47 Coronavirus (PCR) Negative (Negative) 07/08/21 Unknown Blood Type B POSITIVE 07/10/21 13:08 Antibody Screen Negative 07/10/21 13:08 Crossmatch See Detail 07/10/21 13:08 Martines/IV: Voiding Method External Female Catheter Active Medications - Current Medications Current Medications: Generic Name Dose Route Start Last Admin Trade Name Freq PRN Reason Stop Dose Admin Acetaminophen 650 mg 06/22/21 22:21 07/08/21 12:08 Acetaminophen 325 Mg Tab PO 650 mg Q4H PRN Administration Pain MILD(1-3)/Fever >100.5/NAVA Lipase/Protease/Amylase 1 each 06/29/21 16:20 Lipase 10,500/Protease 25,000/Amylase 43,750 (Units) Dr Castellanos FEEDTUBE PRN PRN For Clogged Feeding Tube Clopidogrel Bisulfate 75 mg 06/23/21 10:00 07/11/21 09:06 Clopidogrel 75 Mg Tab PO 75 mg DAILY JUDY Administration Docusate Sodium 100 mg 06/25/21 22:00 07/11/21 21:59 Docusate Sodium 100 Mg/10 Ml Oral Liqd PO 100 mg BID JUDY Administration Famotidine 20 mg 06/29/21 22:00 07/11/21 21:59 Famotidine 20 Mg Tab FEEDTUBE 20 mg BID JUDY Administration Insulin Human Lispro 0 unit 06/26/21 12:00 07/11/21 17:56 Insulin Lispro 100 Unit/Ml SUB-Q 3 unit Q6HR JUDY Administration Protocol Metoclopramide HCl 10 mg 06/22/21 22:21 Metoclopramide 10 Mg/2 Ml Inj IV Q6H PRN Nausea And Vomiting Metoprolol Tartrate 25 mg 07/11/21 18:00 07/11/21 17:06 Metoprolol Tartrate 25 Mg Tab PO 25 mg Q6HR JUDY Administration Ondansetron HCl 4 mg 06/22/21 22:21 Ondansetron 4 Mg/2 Ml Inj IV Q8H PRN Nausea And Vomiting Pravastatin Sodium 40 mg 06/23/21 22:00 07/11/21 21:59 Pravastatin 40 Mg Tab PO 40 mg QHS JUDY Administration Simple Syrup 15 ml 06/29/21 16:20 Simple Syrup 15 Ml FEEDTUBE PRN PRN Hypoglycemia Simple Syrup 30 ml 06/29/21 16:20 Simple Syrup 15 Ml FEEDTUBE PRN PRN Hypoglycemia Sodium Bicarbonate 325 mg 06/29/21 16:20 Sodium Bicarbonate 325 Mg Tab FEEDTUBE PRN PRN For Clogged Feeding Tube Sodium Chloride 10 ml 06/23/21 10:00 07/11/21 21:59 Sodium Chloride 0.9% 10 Ml Flush Syringe IV 10 ml BID JUDY Administration Sodium Chloride 10 ml 06/22/21 22:21 Sodium Chloride 0.9% 10 Ml Flush Syringe IV PRN PRN LINE FLUSH Nutrition/Malnutrition Assess - Dietary Evaluation Nutrition/Malnutrition Findings: Nutrition Notes Start: 06/26/21 11:01 Freq: Status: Active Protocol: Document 07/08/21 17:32 VINCENZO (Rec: 07/08/21 17:40 VINCENZO [email or web address]) Nutrition Notes Initial or Follow up Brief Note Current Diet TF-Vital High Protein @ 50 ml/ hr (since D 06/29). Height 5 ft 5 in Weight 114.4 kg [place] Body Weight (kg) 56.81 BMI 41.9 Weight change and time frame Discrepancy of 28.217 Kg body weight change in 1 week reported. Weight Status Morbidly Obese Subjective/Other Information RD consult for routine F/U on TF tolerance. TF continues without changes, thus, well tolerated. Percent of energy/protein needs met: Prescribed Vital High Protein @ 50 ml/hr provides for energy /protein needs (1,200 Kcal/105 g) during LOS, 100% Kcal; 90% AA. Current % PO Other Minimum of two criteria No #1 Nutrition Diagnosis Inadequate oral intake Diagnosis Progress(for reassessment Continues documentation) Nutrition Intervention Nutrition Support: Continue Vital High Protein @ 50 ml/hr. Flush: 50 ml water Q 4 hr. Kcal 1,200 Protein (gm) 105 Carbohydrates (gm) 134 Fat (gm) 28 Fluid (mL) 1,003 Fiber (gm) 0 % RDI: 100% Kcal; 90% AA. Goal #1 Provide at least 75% of energy /protein needs through Enteral Feeding during LOS. Follow-Up By: 07/14/21 Additional Comments Continue monitoring TF tolerance and BM.
[2021-07-12] MEDS: METOPROLOL TARTRATE 25 MG TAB PO SCH ×2 (00:28→05:56)
[2021-07-12] MEDS: INSULIN LISPRO 100 UNIT/ML SUB-Q SCH ×4 (00:30→17:30)
[2021-07-12 06:25] LABS: Hemoglobin 7.2 gm/dl (10.1-14.3)
[2021-07-12 06:46] LABS: Blood Urea Nitrogen 65 mg/dL (7-17); Calcium 9.9 mg/dL (8.4-10.2); Hemolysis Index 0
[2021-07-12 07:09] LABS: BUN/Creatinine Ratio 93
[2021-07-12] MEDS: DOCUSATE SODIUM 100 MG/10 ML ORAL LIQD PO SCH ×2 (10:37→21:47)
[2021-07-12] MEDS: CLOPIDOGREL 75 MG TAB PO SCH (10:37)
[2021-07-12] MEDS: FAMOTIDINE 20 MG TAB FEEDTUBE SCH ×2 (10:37→21:47)
--- NOTE | 2021-07-12 13:21 | Progress Note ---
Assessment and Plan Free water supplementation. - Patient Problems (1) Acute metabolic encephalopathy Current Visit: Yes Status: Acute (2) Acute hyponatremia Current Visit: Yes Status: Resolved (3) Hypernatremia Current Visit: Yes Status: Acute (4) Acute respiratory failure with hypoxemia Current Visit: Yes Status: Acute (5) Atrial fibrillation with rapid ventricular response Current Visit: Yes Status: Resolved (6) Hypertension Current Visit: Yes Status: Chronic Qualifiers: Hypertension type: primary hypertension Qualified Code(s): I10 - Essential (primary) hypertension (7) Diabetes mellitus Current Visit: Yes Status: Chronic Qualifiers: Diabetes mellitus type: type 2 Diabetes mellitus complication status: without complication (8) Anemia Current Visit: Yes Status: Acute (9) Community acquired pneumonia Current Visit: Yes Status: Acute Subjective Date of service: 07/12/21 Principal diagnosis: Acute encephalopathy, CAP, PAF with RVR, Acute resp failure, Hyponatremia Interval history: On Bipap this morning. Objective Vital Signs Temp Pulse Resp BP Pulse Ox 07/12/21 09:55 96 H 24 97 07/12/21 09:14 94 07/12/21 05:56 84 07/12/21 04:20 84 16 97 07/12/21 01:55 85 25 H 99 07/12/21 00:28 110 H 135/65 07/12/21 00:00 116 H 07/11/21 22:56 98.4 F 110 H 18 135/65 93 07/11/21 22:00 93 07/11/21 19:27 98.6 F 109 H 19 103/54 76 L 07/11/21 17:06 108 H 111/61 07/11/21 16:18 98.1 F 110 H 20 117/52 95 - Physical Examination General: No Apparent Distress HEENT: Positive: EOMI, Normocephaly, Mucus Membranes Moist, Mucus Membranes Dry Neck: Positive: neck supple, trachea midline Cardiac: Positive: Reg Rate and Rhythm, S1/S2 Lungs: Positive: clear to auscultation Neuro: Positive: Other (confused) Abdomen: Positive: Soft, Active Bowel Sounds. Negative: Tender Skin: Negative: Rash Musculoskeletal: Normal Range of Motion Extremities: Present: warm. Absent: edema - Labs and Meds CBC 07/12/21 Range/Units 05:33 Hgb 7.2 L (10.1-14.3) gm/dl Hct 23.0 L (30.3-42.9) % Comprehensive Metabolic Panel 07/11/21 07/12/21 Range/Units Unknown 05:33 Sodium 160 H 159 H (137-145) mmol/L Potassium 3.9 3.8 (3.6-5.0) mmol/L Chloride 109.2 H 109.5 H (98-107) mmol/L Carbon Dioxide 44 H* 44 H* (22-30) mmol/L BUN 56 H 65 H (7-17) mg/dL Creatinine 0.6 0.7 (0.6-1.2) mg/dL Glucose 170 H 206 H (65-100) mg/dL Calcium 10.2 9.9 (8.4-10.2) mg/dL - Imaging and Cardiology EKG: image reviewed - Telemetry EKG Rhythm: Sinus Rhythm - EKG Sinus rhythms and dysrhythmias: sinus tachycardia Ventricular dysrhythmias: ventricular premature com Myocardial infarction: septal MT (old age or ind, anterior MT (old age or i - Allied health notes Allied health notes reviewed: nursing
[2021-07-12 14:23] LABS: Blood Urea Nitrogen 69 mg/dL (7-17); Calcium 9.9 mg/dL (8.4-10.2); Hemolysis Index 0
[2021-07-12 14:32] LABS: BUN/Creatinine Ratio 99
--- NOTE | 2021-07-12 15:33 | Event Note ---
Date: 07/12/21 I called patient's /spouse, Marshal Kelley and discussed in detail patient's condition, tests and reports, consultants recommendation, Treatment plan and prognosis, he had numerous questions I answered all of them, and encouraged him to call back if she has new questions or concerns,He verbalized understanding .
[2021-07-12] MEDS: PRAVASTATIN 40 MG TAB PO SCH (21:48)
[2021-07-13] MEDS: INSULIN LISPRO 100 UNIT/ML SUB-Q SCH ×4 (01:21→17:44)
[2021-07-13 05:49] LABS: Hematocrit 21.8 % (30.3-42.9); Hemoglobin 6.8 gm/dl (10.1-14.3)
[2021-07-13 06:05] LABS: BUN/Creatinine Ratio 91; Blood Urea Nitrogen 73 mg/dL (7-17); Calcium 9.7 mg/dL (8.4-10.2); Hemolysis Index 4
[2021-07-13] MEDS: DOCUSATE SODIUM 100 MG/10 ML ORAL LIQD PO SCH ×2 (09:45→22:56)
[2021-07-13] MEDS: FAMOTIDINE 20 MG TAB FEEDTUBE SCH ×2 (09:45→22:55)
[2021-07-13] MEDS: CLOPIDOGREL 75 MG TAB PO SCH (09:45)
--- NOTE | 2021-07-13 11:23 | Progress Note ---
Assessment and Plan Add Amiodarone for rate control since the patient's BP is borderline. Free water supplementation for severe hyponatremia. - Patient Problems (1) Acute metabolic encephalopathy Current Visit: Yes Status: Acute (2) Acute hyponatremia Current Visit: Yes Status: Resolved (3) Hypernatremia Current Visit: Yes Status: Acute (4) Acute respiratory failure with hypoxemia Current Visit: Yes Status: Acute (5) Atrial fibrillation with rapid ventricular response Current Visit: Yes Status: Resolved (6) Hypertension Current Visit: Yes Status: Chronic Qualifiers: Hypertension type: primary hypertension Qualified Code(s): I10 - Essential (primary) hypertension (7) Diabetes mellitus Current Visit: Yes Status: Chronic Qualifiers: Diabetes mellitus type: type 2 Diabetes mellitus complication status: without complication (8) Anemia Current Visit: Yes Status: Acute (9) Community acquired pneumonia Current Visit: Yes Status: Acute Subjective Date of service: 07/13/21 Principal diagnosis: Acute encephalopathy, CAP, PAF with RVR, Acute resp failure, Hyponatremia Interval history: Confused. Objective Vital Signs Temp Pulse Resp BP Pulse Ox 07/13/21 09:23 94 07/13/21 09:22 114 H 19 95 07/13/21 08:02 97.3 F L 87 23 102/60 100 07/13/21 03:12 99 H 20 96 07/13/21 02:00 61 07/12/21 22:00 17 94 07/12/21 21:37 110 H 17 97 07/12/21 17:22 107 H 18 95 07/12/21 14:34 90 20 96 07/12/21 13:49 116 H 20 99 - Physical Examination General: No Apparent Distress HEENT: Positive: EOMI, Normocephaly, Mucus Membranes Moist, Mucus Membranes Dry Neck: Positive: neck supple, trachea midline Cardiac: Positive: irregularly irregular, S1/S2 Lungs: Positive: clear to auscultation Neuro: Positive: Other (confused) Abdomen: Positive: Soft, Active Bowel Sounds. Negative: Tender Skin: Negative: Rash Musculoskeletal: Normal Range of Motion Extremities: Present: warm. Absent: edema - Labs and Meds CBC 07/13/21 Range/Units 04:19 Hgb 6.8 L (10.1-14.3) gm/dl Hct 21.8 L (30.3-42.9) % Comprehensive Metabolic Panel 07/12/21 07/13/21 Range/Units 13:35 04:19 Sodium 157 H 165 H* D (137-145) mmol/L Potassium 3.6 3.5 L (3.6-5.0) mmol/L Chloride 107.6 H 111.1 H (98-107) mmol/L Carbon Dioxide 46 H* 42 H* (22-30) mmol/L BUN 69 H 73 H (7-17) mg/dL Creatinine 0.7 0.8 (0.6-1.2) mg/dL Glucose 221 H 228 H (65-100) mg/dL Calcium 9.9 9.7 (8.4-10.2) mg/dL - Imaging and Cardiology EKG: image reviewed Echo: report reviewed - Telemetry EKG Rhythm: Atrial Fibrillation - EKG Ventricular dysrhythmias: ventricular premature com Myocardial infarction: septal SC (old age or ind, anterior SC (old age or i - Allied health notes Allied health notes reviewed: nursing
--- NOTE | 2021-07-13 12:56 | Progress Note ---
Assessment and Plan 65 y/o female with symptomatic hyponatremia of unknown etiology 07/13/21: check CXR today. CM hopefully are working on funding so patient can get NIV. electrolyte abnormalities per primary care. 07/11/21: NIV at night. Needs for home secondary to chronic respiratory failure with hypercapnea. supplemental oxygen during the day. 07/09/21: can come off bipap but must be worn at night and PRN. CM working on funding. Guarded prognosis 07/03/21: Continue NIV at night. Unfortunately, based on CM note, it appears she has no funding but really needs NIV therapy. Wean supplemental O2 as tolerated and will need walk test prior to discharge. Suggest PT/OT consult as well. 07/02/21: stable pulm [place] now for transfer to floor, should have tele. COntinue bipap at night and pRN. CM investigating funding as she will need NIV at dis charge. 07/01/21: Will need NIV for night time and PRN use at home. Will continue bipap QHS and PRN here. Ok with transfer to step down for at least 24 hours and then to floor. Rate control per cards. Ok to restart feeds as well. Will continue to follow. CM to further investigate funding 06/30/21: Will give break off bipap for at least an hour and monitor mental state hourly. In the event she requires continuous bipap again, then will discuss with patient and family () the Idea of trach, trach care and what that could mean for her in the future. Cardiology has ordered PO meds. We will attempt to give those but we had changed them back to IV given the likelihood she is going to require bipap again. Continue ICU care. 06/29/21: Will keep patient on continuous bipap at least until tomorrow morning. Try off Bipap again. If she fails will reach out to surgery as patient would likely need trach. Biggest question is why now (for CO2 retention.) Per cards echo is normal and when asked no prior history of RADHA. Will keep NPO so will nee to Continue Amio drip. Will place on scheduled lopressor since we cannot give oral meds at this time. 06/26/21: Transfer on hold. Follow up repeat ABG. Wean vasopressors for maps >65. Call renal in regards to Na since no real improvement with samsaca. Place [place]. If 3% is needed again, please give through central line. 06/25/21: Transferring to floor. Suggest remote tele. Wean FiO2 as tolerated. Will continue to follow. 06/24/21: Given Na greater than 120 and symptoms continue to improve, no objection to down grade to floor status. Suggest either tele floor or remote tele. Follow up renal recs. 1. Follow up renal recs 2. Yesterday placed patient on normal saline but now that 3% is being given will discontinue 3. q6 hour Chemistries given low chloride as well 4. Frequent neuro checks given rising na 5. Guarded prognosis. CCT 31minutes. Subjective Date of service: 07/13/21 Principal diagnosis: Acute encephalopathy, CAP, PAF with RVR, Acute resp failure, Hyponatremia Interval history: Pt failed being on NC yesterday morning secondary to increased work of breathing and hypoxemia. placed back on bipap and remained on until this am, now on 6 liters NC which is increased from her usual 4 Objective Vital Signs - 12hr 07/13/21 07/13/21 07/13/21 02:00 03:12 08:02 Temperature 97.3 F L Pulse Rate 61 99 H 87 Pulse Rate [ From Monitor] Respiratory 20 23 Rate Blood Pressure 102/60 O2 Sat by Pulse 96 100 Oximetry 07/13/21 07/13/21 07/13/21 09:22 09:23 10:00 Temperature Pulse Rate 114 H Pulse Rate [ 118 H From Monitor] Respiratory 19 20 Rate Blood Pressure O2 Sat by Pulse 95 94 95 Oximetry 07/13/21 11:55 Temperature 98.3 F Pulse Rate 119 H Pulse Rate [ From Monitor] Respiratory 20 Rate Blood Pressure 101/42 O2 Sat by Pulse 95 Oximetry Constitutional: no acute distress, alert, other (obese) Eyes: non-icteric ENT: oropharynx moist Neck: supple Effort: normal Ascultation: Bilateral: diminished breath sounds, other (coarse BS bilaterally) Cardiovascular: regular rate and rhythm (ir/ir, no mrg) Gastrointestinal: normoactive bowel sounds, soft, non-distended Integumentary: normal Extremities: no cyanosis, no edema, pink and warm Neurologic: normal mental status, non-focal exam, pupils equal and round, CN II- XII normal Psychiatric: mood appropriate, affect normal CBC and BMP: 07/13/21 04:19 07/13/21 04:19 ABG, PT/INR, D-dimer: ABG ABG pH 7.415 pH Units (7.350-7.450) 07/06/21 16:00 POC ABG pCO2 38.0 mmHg (32.0-48.0) 06/27/21 05:06 ABG pCO2 74.5 mm Hg 07/06/21 16:00 POC ABG pO2 93.6 mmHg (83-108) 06/27/21 05:06 ABG pO2 69.0 mm Hg (80.0-90.0) L 07/06/21 16:00 POC ABG HCO3 27.7 06/27/21 05:06 ABG O2 Saturation 95.2 % (95.0-99.0) 07/06/21 16:00 PT/INR, D-dimer PT 13.0 Sec. (12.2-14.9) 07/02/21 05:30 INR 0.88 (0.87-1.13) 07/02/21 05:30 D-Dimer 390 ng/mlDDU (0-234) H 06/22/21 08:56 Abnormal lab findings: Abnormal Labs 06/22/21 06/22/21 06/22/21 07:58 07:58 07:58 WBC 13.0 H RBC Hgb Hct MCHC 35 H Lymph % (Auto) 6.3 L [place] % (Auto) 7.4 H Lymph # (Auto) 0.8 L [place] # (Auto) 1.0 H Seg Neutrophils % 85.5 H Seg Neuts % (Manual) Lymphocytes % (Manual) Seg Neutrophils # 11.1 H Seg Neutrophils # Man Lymphocytes # (Manual) PT 11.8 L INR 0.78 L D-Dimer Heparin Anti-Xa Level ABG pH POC ABG pCO2 ABG pO2 ABG HCO3 ABG O2 Saturation ABG Base Excess ABG Hemoglobin ABG Oxyhemoglobin ABG Sodium ABG Chloride ABG Glucose Oxyhemoglobin Sodium 107 L* Potassium 2.7 L* Chloride 60.0 L Carbon Dioxide 32 H BUN Creatinine 0.5 L Glucose 177 H POC Glucose Hemoglobin A1c Lactic Acid Uric Acid Calcium Phosphorus Magnesium Alkaline Phosphatase Lactate Dehydrogenase C-Reactive Protein Total Protein Albumin Arterial Blood Glucose Urine WBC (Auto) Crossmatch 06/22/21 06/22/21 06/22/21 08:56 08:56 08:56 WBC RBC Hgb Hct MCHC Lymph % (Auto) [place] % (Auto) Lymph # (Auto) [place] # (Auto) Seg Neutrophils % Seg Neuts % (Manual) Lymphocytes % (Manual) Seg Neutrophils # Seg Neutrophils # Man Lymphocytes # (Manual) PT INR D-Dimer 390 H Heparin Anti-Xa Level ABG pH POC ABG pCO2 ABG pO2 ABG HCO3 ABG O2 Saturation ABG Base Excess ABG Hemoglobin ABG Oxyhemoglobin ABG Sodium ABG Chloride ABG Glucose Oxyhemoglobin Sodium Potassium Chloride Carbon Dioxide BUN Creatinine Glucose 179 H POC Glucose Hemoglobin A1c Lactic Acid 2.10 H* Uric Acid Calcium Phosphorus Magnesium Alkaline Phosphatase Lactate Dehydrogenase 220 H C-Reactive Protein 5.40 H Total Protein Albumin Arterial Blood Glucose Urine WBC (Auto) Crossmatch 06/22/21 06/22/21 06/22/21 08:56 11:47 14:20 WBC RBC Hgb Hct MCHC Lymph % (Auto) [place] % (Auto) Lymph # (Auto) [place] # (Auto) Seg Neutrophils % Seg Neuts % (Manual) Lymphocytes % (Manual) Seg Neutrophils # Seg Neutrophils # Man Lymphocytes # (Manual) PT INR D-Dimer Heparin Anti-Xa Level ABG pH POC ABG pCO2 ABG pO2 ABG HCO3 ABG O2 Saturation ABG Base Excess ABG Hemoglobin ABG Oxyhemoglobin ABG Sodium ABG Chloride ABG Glucose Oxyhemoglobin Sodium 104 L* 112 L* D Potassium 3.2 L 2.7 L* Chloride 60.0 L 65.2 L Carbon Dioxide 32 H BUN Creatinine 0.4 L 0.4 L Glucose 181 H 119 H POC Glucose Hemoglobin A1c Lactic Acid Uric Acid Calcium Phosphorus Magnesium Alkaline Phosphatase Lactate Dehydrogenase C-Reactive Protein Total Protein Albumin Arterial Blood Glucose Urine WBC (Auto) 11.0 H Crossmatch 06/22/21 06/23/21 06/23/21 18:19 05:29 05:29 WBC 12.4 H RBC Hgb Hct MCHC Lymph % (Auto) 5.8 L [place] % (Auto) Lymph # (Auto) 0.7 L [place] # (Auto) 0.9 H Seg Neutrophils % 87.1 H Seg Neuts % (Manual) Lymphocytes % (Manual) Seg Neutrophils # 10.8 H Seg Neutrophils # Man Lymphocytes # (Manual) PT INR D-Dimer Heparin Anti-Xa Level ABG pH POC ABG pCO2 ABG pO2 ABG HCO3 ABG O2 Saturation ABG Base Excess ABG Hemoglobin ABG Oxyhemoglobin ABG Sodium ABG Chloride ABG Glucose Oxyhemoglobin Sodium 112 L* 112 L* Potassium 2.7 L* 2.6 L* Chloride 65.8 L 67.5 L Carbon Dioxide 31 H 33 H BUN Creatinine 0.3 L 0.4 L Glucose POC Glucose Hemoglobin A1c Lactic Acid Uric Acid 3.2 L Calcium Phosphorus Magnesium Alkaline Phosphatase Lactate Dehydrogenase C-Reactive Protein Total Protein Albumin Arterial Blood Glucose Urine WBC (Auto) Crossmatch 06/23/21 06/23/21 06/23/21 05:29 05:29 12:11 WBC RBC Hgb Hct MCHC Lymph % (Auto) [place] % (Auto) Lymph # (Auto) [place] # (Auto) Seg Neutrophils % Seg Neuts % (Manual) Lymphocytes % (Manual) Seg Neutrophils # Seg Neutrophils # Man Lymphocytes # (Manual) PT INR D-Dimer Heparin Anti-Xa Level ABG pH POC ABG pCO2 ABG pO2 ABG HCO3 ABG O2 Saturation ABG Base Excess ABG Hemoglobin ABG Oxyhemoglobin ABG Sodium ABG Chloride ABG Glucose Oxyhemoglobin Sodium 113 L* Potassium 2.6 L* Chloride 69.7 L Carbon Dioxide BUN Creatinine 0.4 L Glucose 106 H POC Glucose Hemoglobin A1c 6.6 H Lactic Acid Uric Acid Calcium Phosphorus Magnesium 1.50 L Alkaline Phosphatase Lactate Dehydrogenase C-Reactive Protein Total Protein Albumin Arterial Blood Glucose Urine WBC (Auto) Crossmatch 06/23/21 06/24/21 06/24/21 17:43 00:43 00:45 WBC RBC Hgb Hct MCHC Lymph % (Auto) [place] % (Auto) Lymph # (Auto) [place] # (Auto) Seg Neutrophils % Seg Neuts % (Manual) Lymphocytes % (Manual) Seg Neutrophils # Seg Neutrophils # Man Lymphocytes # (Manual) PT INR D-Dimer Heparin Anti-Xa Level ABG pH POC ABG pCO2 ABG pO2 ABG HCO3 ABG O2 Saturation ABG Base Excess ABG Hemoglobin ABG Oxyhemoglobin ABG Sodium ABG Chloride ABG Glucose Oxyhemoglobin Sodium 117 L* 119 L* Potassium Chloride 74.9 L 79.6 L Carbon Dioxide 32 H BUN Creatinine 0.3 L 0.4 L Glucose 125 H 116 H POC Glucose 117 H Hemoglobin A1c Lactic Acid Uric Acid Calcium Phosphorus Magnesium Alkaline Phosphatase Lactate Dehydrogenase C-Reactive Protein Total Protein Albumin Arterial Blood Glucose Urine WBC (Auto) Crossmatch 06/24/21 06/24/21 06/24/21 05:33 05:33 06:11 WBC 12.0 H RBC Hgb Hct MCHC Lymph % (Auto) [place] % (Auto) Lymph # (Auto) [place] # (Auto) Seg Neutrophils % Seg Neuts % (Manual) 95.0 H Lymphocytes % (Manual) 2.0 L Seg Neutrophils # Seg Neutrophils # Man 11.4 H Lymphocytes # (Manual) 0.2 L PT INR D-Dimer Heparin Anti-Xa Level ABG pH POC ABG pCO2 ABG pO2 ABG HCO3 ABG O2 Saturation ABG Base Excess ABG Hemoglobin ABG Oxyhemoglobin ABG Sodium ABG Chloride ABG Glucose Oxyhemoglobin Sodium 122 L Potassium Chloride 80.2 L Carbon Dioxide 31 H BUN Creatinine 0.3 L Glucose 143 H POC Glucose 141 H Hemoglobin A1c Lactic Acid Uric Acid Calcium Phosphorus Magnesium Alkaline Phosphatase Lactate Dehydrogenase C-Reactive Protein Total Protein Albumin Arterial Blood Glucose Urine WBC (Auto) Crossmatch 06/24/21 06/24/21 06/24/21 16:25 18:16 23:49 WBC RBC Hgb Hct MCHC Lymph % (Auto) [place] % (Auto) Lymph # (Auto) [place] # (Auto) Seg Neutrophils % Seg Neuts % (Manual) Lymphocytes % (Manual) Seg Neutrophils # Seg Neutrophils # Man Lymphocytes # (Manual) PT INR D-Dimer Heparin Anti-Xa Level ABG pH POC ABG pCO2 ABG pO2 ABG HCO3 ABG O2 Saturation ABG Base Excess ABG Hemoglobin ABG Oxyhemoglobin ABG Sodium ABG Chloride ABG Glucose Oxyhemoglobin Sodium 122 L 123 L Potassium Chloride 78.9 L Carbon Dioxide 32 H BUN Creatinine 0.5 L D Glucose 141 H POC Glucose 162 H Hemoglobin A1c Lactic Acid Uric Acid Calcium Phosphorus Magnesium Alkaline Phosphatase Lactate Dehydrogenase C-Reactive Protein Total Protein Albumin Arterial Blood Glucose Urine WBC (Auto) Crossmatch 06/25/21 06/25/21 06/25/21 00:18 03:06 06:15 WBC RBC Hgb Hct MCHC Lymph % (Auto) [place] % (Auto) Lymph # (Auto) [place] # (Auto) Seg Neutrophils % Seg Neuts % (Manual) Lymphocytes % (Manual) Seg Neutrophils # Seg Neutrophils # Man Lymphocytes # (Manual) PT INR D-Dimer Heparin Anti-Xa Level ABG pH POC ABG pCO2 ABG pO2 ABG HCO3 ABG O2 Saturation ABG Base Excess ABG Hemoglobin ABG Oxyhemoglobin ABG Sodium ABG Chloride ABG Glucose Oxyhemoglobin Sodium 122 L Potassium Chloride Carbon Dioxide BUN Creatinine Glucose POC Glucose 151 H 149 H Hemoglobin A1c Lactic Acid Uric Acid Calcium Phosphorus Magnesium Alkaline Phosphatase Lactate Dehydrogenase C-Reactive Protein Total Protein Albumin Arterial Blood Glucose Urine WBC (Auto) Crossmatch 06/25/21 06/25/21 06/25/21 10:19 13:42 13:42 WBC RBC Hgb Hct MCHC Lymph % (Auto) [place] % (Auto) Lymph # (Auto) [place] # (Auto) Seg Neutrophils % Seg Neuts % (Manual) Lymphocytes % (Manual) Seg Neutrophils # Seg Neutrophils # Man Lymphocytes # (Manual) PT INR 0.85 L D-Dimer Heparin Anti-Xa Level ABG pH POC ABG pCO2 ABG pO2 ABG HCO3 ABG O2 Saturation ABG Base Excess ABG Hemoglobin ABG Oxyhemoglobin ABG Sodium ABG Chloride ABG Glucose Oxyhemoglobin Sodium 123 L Potassium Chloride 78.5 L Carbon Dioxide 32 H BUN 19 H Creatinine Glucose 193 H POC Glucose 152 H Hemoglobin A1c Lactic Acid Uric Acid Calcium Phosphorus Magnesium Alkaline Phosphatase Lactate Dehydrogenase C-Reactive Protein Total Protein Albumin Arterial Blood Glucose Urine WBC (Auto) Crossmatch 06/25/21 06/25/21 06/25/21 15:13 15:21 19:49 WBC RBC Hgb Hct MCHC Lymph % (Auto) [place] % (Auto) Lymph # (Auto) [place] # (Auto) Seg Neutrophils % Seg Neuts % (Manual) Lymphocytes % (Manual) Seg Neutrophils # Seg Neutrophils # Man Lymphocytes # (Manual) PT INR D-Dimer Heparin Anti-Xa Level < 0.10 L ABG pH POC ABG pCO2 ABG pO2 ABG HCO3 ABG O2 Saturation ABG Base Excess ABG Hemoglobin ABG Oxyhemoglobin ABG Sodium ABG Chloride ABG Glucose Oxyhemoglobin Sodium Potassium Chloride Carbon Dioxide BUN Creatinine Glucose POC Glucose 221 H 194 H Hemoglobin A1c Lactic Acid Uric Acid Calcium Phosphorus Magnesium Alkaline Phosphatase Lactate Dehydrogenase C-Reactive Protein Total Protein Albumin Arterial Blood Glucose Urine WBC (Auto) Crossmatch 06/25/21 06/25/21 06/25/21 21:21 22:55 22:55 WBC 14.8 H RBC Hgb Hct MCHC Lymph % (Auto) [place] % (Auto) Lymph # (Auto) [place] # (Auto) Seg Neutrophils % Seg Neuts % (Manual) 91.0 H Lymphocytes % (Manual) 6.0 L Seg Neutrophils # Seg Neutrophils # Man 13.5 H Lymphocytes # (Manual) 0.9 L PT INR D-Dimer Heparin Anti-Xa Level ABG pH 7.086 L POC ABG pCO2 104.9 H ABG pO2 ABG HCO3 ABG O2 Saturation ABG Base Excess ABG Hemoglobin ABG Oxyhemoglobin 92.4 L ABG Sodium 123.4 L ABG Chloride 81.0 L ABG Glucose 225 H Oxyhemoglobin Sodium 124 L Potassium Chloride 82.9 L Carbon Dioxide BUN 22 H Creatinine Glucose 226 H POC Glucose Hemoglobin A1c Lactic Acid Uric Acid Calcium 8.2 L Phosphorus 4.70 H Magnesium Alkaline Phosphatase Lactate Dehydrogenase C-Reactive Protein Total Protein Albumin Arterial Blood Glucose 225 H Urine WBC (Auto) Crossmatch 06/26/21 06/26/21 06/26/21 00:35 02:58 04:32 WBC RBC Hgb Hct MCHC Lymph % (Auto) [place] % (Auto) Lymph # (Auto) [place] # (Auto) Seg Neutrophils % Seg Neuts % (Manual) Lymphocytes % (Manual) Seg Neutrophils # Seg Neutrophils # Man Lymphocytes # (Manual) PT INR D-Dimer Heparin Anti-Xa Level ABG pH POC ABG pCO2 ABG pO2 439.6 H ABG HCO3 30.0 H ABG O2 Saturation 99.6 H ABG Base Excess 3.3 H ABG Hemoglobin ABG Oxyhemoglobin ABG Sodium ABG Chloride ABG Glucose Oxyhemoglobin Sodium 123 L Potassium Chloride 79.2 L Carbon Dioxide BUN 26 H Creatinine Glucose 202 H POC Glucose 227 H Hemoglobin A1c Lactic Acid Uric Acid Calcium Phosphorus Magnesium Alkaline Phosphatase Lactate Dehydrogenase C-Reactive Protein Total Protein 5.9 L Albumin 2.8 L Arterial Blood Glucose Urine WBC (Auto) Crossmatch 06/26/21 06/26/21 06/26/21 05:53 09:14 09:48 WBC RBC Hgb Hct MCHC Lymph % (Auto) [place] % (Auto) Lymph # (Auto) [place] # (Auto) Seg Neutrophils % Seg Neuts % (Manual) Lymphocytes % (Manual) Seg Neutrophils # Seg Neutrophils # Man Lymphocytes # (Manual) PT INR D-Dimer Heparin Anti-Xa Level ABG pH POC ABG pCO2 ABG pO2 ABG HCO3 ABG O2 Saturation ABG Base Excess ABG Hemoglobin ABG Oxyhemoglobin ABG Sodium ABG Chloride ABG Glucose Oxyhemoglobin Sodium Potassium Chloride Carbon Dioxide BUN Creatinine Glucose POC Glucose 187 H 194 H Hemoglobin A1c Lactic Acid Uric Acid Calcium Phosphorus Magnesium Alkaline Phosphatase Lactate Dehydrogenase C-Reactive Protein Total Protein Albumin Arterial Blood Glucose Urine WBC (Auto) 69.0 H Crossmatch 06/26/21 06/26/21 06/26/21 10:00 16:06 22:34 WBC RBC Hgb Hct MCHC Lymph % (Auto) [place] % (Auto) Lymph # (Auto) [place] # (Auto) Seg Neutrophils % Seg Neuts % (Manual) Lymphocytes % (Manual) Seg Neutrophils # Seg Neutrophils # Man Lymphocytes # (Manual) PT INR D-Dimer Heparin Anti-Xa Level ABG pH 7.467 H POC ABG pCO2 ABG pO2 125.4 H ABG HCO3 ABG O2 Saturation ABG Base Excess ABG Hemoglobin ABG Oxyhemoglobin ABG Sodium ABG Chloride ABG Glucose Oxyhemoglobin Sodium 128 L Potassium Chloride 88.6 L Carbon Dioxide BUN 32 H Creatinine Glucose 161 H POC Glucose 231 H Hemoglobin A1c Lactic Acid Uric Acid Calcium Phosphorus Magnesium Alkaline Phosphatase Lactate Dehydrogenase C-Reactive Protein Total Protein Albumin Arterial Blood Glucose Urine WBC (Auto) Crossmatch 06/26/21 06/27/21 06/27/21 23:32 05:06 06:00 WBC 12.0 H RBC Hgb Hct MCHC Lymph % (Auto) [place] % (Auto) Lymph # (Auto) [place] # (Auto) Seg Neutrophils % Seg Neuts % (Manual) Lymphocytes % (Manual) Seg Neutrophils # Seg Neutrophils # Man Lymphocytes # (Manual) PT INR D-Dimer Heparin Anti-Xa Level ABG pH 7.480 H POC ABG pCO2 ABG pO2 ABG HCO3 ABG O2 Saturation ABG Base Excess ABG Hemoglobin 11.9 L ABG Oxyhemoglobin ABG Sodium 123.5 L ABG Chloride 91.0 L ABG Glucose 328 H Oxyhemoglobin Sodium 126 L Potassium Chloride 89.2 L Carbon Dioxide BUN 34 H Creatinine Glucose 257 H POC Glucose Hemoglobin A1c Lactic Acid Uric Acid Calcium Phosphorus Magnesium Alkaline Phosphatase Lactate Dehydrogenase C-Reactive Protein Total Protein Albumin Arterial Blood Glucose 328 H Urine WBC (Auto) Crossmatch 06/27/21 06/27/21 06/27/21 06:00 11:41 17:06 WBC RBC Hgb Hct MCHC Lymph % (Auto) [place] % (Auto) Lymph # (Auto) [place] # (Auto) Seg Neutrophils % Seg Neuts % (Manual) Lymphocytes % (Manual) Seg Neutrophils # Seg Neutrophils # Man Lymphocytes # (Manual) PT INR D-Dimer Heparin Anti-Xa Level ABG pH POC ABG pCO2 ABG pO2 ABG HCO3 ABG O2 Saturation ABG Base Excess ABG Hemoglobin ABG Oxyhemoglobin ABG Sodium ABG Chloride ABG Glucose Oxyhemoglobin Sodium 128 L Potassium Chloride 91.4 L Carbon Dioxide BUN 36 H Creatinine Glucose 346 H POC Glucose 259 H 301 H Hemoglobin A1c Lactic Acid Uric Acid Calcium Phosphorus Magnesium Alkaline Phosphatase Lactate Dehydrogenase C-Reactive Protein Total Protein Albumin Arterial Blood Glucose Urine WBC (Auto) Crossmatch 06/27/21 06/28/21 06/28/21 23:36 03:00 03:00 WBC 14.9 H RBC 3.46 L Hgb Hct MCHC Lymph % (Auto) 2.8 L [place] % (Auto) 7.5 H Lymph # (Auto) 0.4 L [place] # (Auto) 1.1 H Seg Neutrophils % 89.6 H Seg Neuts % (Manual) Lymphocytes % (Manual) Seg Neutrophils # 13.4 H Seg Neutrophils # Man Lymphocytes # (Manual) PT INR D-Dimer Heparin Anti-Xa Level ABG pH POC ABG pCO2 ABG pO2 ABG HCO3 ABG O2 Saturation ABG Base Excess ABG Hemoglobin ABG Oxyhemoglobin ABG Sodium ABG Chloride ABG Glucose Oxyhemoglobin Sodium 134 L Potassium Chloride 91.1 L Carbon Dioxide BUN 35 H Creatinine Glucose 235 H POC Glucose 215 H Hemoglobin A1c Lactic Acid Uric Acid Calcium Phosphorus 1.10 L Magnesium Alkaline Phosphatase Lactate Dehydrogenase C-Reactive Protein Total Protein Albumin Arterial Blood Glucose Urine WBC (Auto) Crossmatch 06/28/21 06/28/21 06/28/21 03:00 05:13 16:53 WBC RBC Hgb Hct MCHC Lymph % (Auto) [place] % (Auto) Lymph # (Auto) [place] # (Auto) Seg Neutrophils % Seg Neuts % (Manual) Lymphocytes % (Manual) Seg Neutrophils # Seg Neutrophils # Man Lymphocytes # (Manual) PT INR D-Dimer Heparin Anti-Xa Level 0.27 L ABG pH POC ABG pCO2 ABG pO2 ABG HCO3 ABG O2 Saturation ABG Base Excess ABG Hemoglobin ABG Oxyhemoglobin ABG Sodium ABG Chloride ABG Glucose Oxyhemoglobin Sodium Potassium Chloride Carbon Dioxide BUN Creatinine Glucose POC Glucose 241 H 213 H Hemoglobin A1c Lactic Acid Uric Acid Calcium Phosphorus Magnesium Alkaline Phosphatase Lactate Dehydrogenase C-Reactive Protein Total Protein Albumin Arterial Blood Glucose Urine WBC (Auto) Crossmatch 06/28/21 06/29/21 06/29/21 23:32 05:13 05:13 WBC RBC Hgb Hct MCHC Lymph % (Auto) [place] % (Auto) Lymph # (Auto) [place] # (Auto) Seg Neutrophils % Seg Neuts % (Manual) Lymphocytes % (Manual) Seg Neutrophils # Seg Neutrophils # Man Lymphocytes # (Manual) PT INR D-Dimer Heparin Anti-Xa Level 0.13 L ABG pH POC ABG pCO2 ABG pO2 ABG HCO3 ABG O2 Saturation ABG Base Excess ABG Hemoglobin ABG Oxyhemoglobin ABG Sodium ABG Chloride ABG Glucose Oxyhemoglobin Sodium 133 L Potassium Chloride Carbon Dioxide BUN 34 H Creatinine 0.5 L Glucose 186 H POC Glucose 236 H Hemoglobin A1c Lactic Acid Uric Acid Calcium Phosphorus 2.20 L D Magnesium Alkaline Phosphatase 31 L Lactate Dehydrogenase C-Reactive Protein Total Protein 3.3 L D Albumin 1.9 L Arterial Blood Glucose Urine WBC (Auto) Crossmatch 06/29/21 06/29/21 06/29/21 06:00 06:00 06:00 WBC 12.7 H RBC 3.36 L Hgb 10.0 L Hct MCHC Lymph % (Auto) 9.5 L [place] % (Auto) 8.6 H Lymph # (Auto) [place] # (Auto) 1.1 H Seg Neutrophils % 80.4 H Seg Neuts % (Manual) Lymphocytes % (Manual) Seg Neutrophils # 10.2 H Seg Neutrophils # Man Lymphocytes # (Manual) PT INR D-Dimer Heparin Anti-Xa Level 0.22 L ABG pH POC ABG pCO2 ABG pO2 ABG HCO3 ABG O2 Saturation ABG Base Excess ABG Hemoglobin ABG Oxyhemoglobin ABG Sodium ABG Chloride ABG Glucose Oxyhemoglobin Sodium 134 L Potassium Chloride 97.8 L Carbon Dioxide BUN 33 H Creatinine Glucose 189 H POC Glucose Hemoglobin A1c Lactic Acid Uric Acid Calcium Phosphorus Magnesium Alkaline Phosphatase Lactate Dehydrogenase C-Reactive Protein Total Protein Albumin Arterial Blood Glucose Urine WBC (Auto) Crossmatch 06/29/21 06/29/21 06/30/21 12:02 17:20 04:20 WBC 11.9 H RBC 3.37 L Hgb Hct MCHC Lymph % (Auto) 8.6 L [place] % (Auto) 8.3 H Lymph # (Auto) 1.0 L [place] # (Auto) 1.0 H Seg Neutrophils % 82.6 H Seg Neuts % (Manual) Lymphocytes % (Manual) Seg Neutrophils # 9.8 H Seg Neutrophils # Man Lymphocytes # (Manual) PT INR D-Dimer Heparin Anti-Xa Level ABG pH POC ABG pCO2 ABG pO2 ABG HCO3 ABG O2 Saturation ABG Base Excess ABG Hemoglobin ABG Oxyhemoglobin ABG Sodium ABG Chloride ABG Glucose Oxyhemoglobin Sodium Potassium Chloride Carbon Dioxide BUN Creatinine Glucose POC Glucose 249 H 172 H Hemoglobin A1c Lactic Acid Uric Acid Calcium Phosphorus Magnesium Alkaline Phosphatase Lactate Dehydrogenase C-Reactive Protein Total Protein Albumin Arterial Blood Glucose Urine WBC (Auto) Crossmatch 06/30/21 06/30/21 07/01/21 04:20 04:20 04:00 WBC RBC Hgb Hct MCHC Lymph % (Auto) [place] % (Auto) Lymph # (Auto) [place] # (Auto) Seg Neutrophils % Seg Neuts % (Manual) Lymphocytes % (Manual) Seg Neutrophils # Seg Neutrophils # Man Lymphocytes # (Manual) PT INR D-Dimer Heparin Anti-Xa Level 0.29 L 0.26 L ABG pH POC ABG pCO2 ABG pO2 ABG HCO3 ABG O2 Saturation ABG Base Excess ABG Hemoglobin ABG Oxyhemoglobin ABG Sodium ABG Chloride ABG Glucose Oxyhemoglobin Sodium Potassium Chloride Carbon Dioxide BUN 30 H Creatinine 0.5 L Glucose POC Glucose Hemoglobin A1c Lactic Acid Uric Acid Calcium Phosphorus Magnesium Alkaline Phosphatase Lactate Dehydrogenase C-Reactive Protein Total Protein Albumin Arterial Blood Glucose Urine WBC (Auto) Crossmatch 07/01/21 07/01/21 07/01/21 04:00 06:00 08:33 WBC RBC Hgb Hct MCHC Lymph % (Auto) [place] % (Auto) Lymph # (Auto) [place] # (Auto) Seg Neutrophils % Seg Neuts % (Manual) Lymphocytes % (Manual) Seg Neutrophils # Seg Neutrophils # Man Lymphocytes # (Manual) PT INR D-Dimer Heparin Anti-Xa Level ABG pH POC ABG pCO2 ABG pO2 ABG HCO3 ABG O2 Saturation ABG Base Excess ABG Hemoglobin ABG Oxyhemoglobin ABG Sodium ABG Chloride ABG Glucose Oxyhemoglobin Sodium Potassium Chloride Carbon Dioxide BUN 25 H Creatinine 0.4 L Glucose POC Glucose 69 L 131 H Hemoglobin A1c Lactic Acid Uric Acid Calcium Phosphorus Magnesium Alkaline Phosphatase Lactate Dehydrogenase C-Reactive Protein Total Protein Albumin Arterial Blood Glucose Urine WBC (Auto) Crossmatch 07/01/21 07/01/21 07/02/21 16:59 Unknown 05:23 WBC 12.2 H RBC 3.57 L Hgb Hct MCHC Lymph % (Auto) [place] % (Auto) Lymph # (Auto) [place] # (Auto) Seg Neutrophils % Seg Neuts % (Manual) Lymphocytes % (Manual) Seg Neutrophils # Seg Neutrophils # Man Lymphocytes # (Manual) PT INR D-Dimer Heparin Anti-Xa Level 0.29 L ABG pH POC ABG pCO2 ABG pO2 ABG HCO3 ABG O2 Saturation ABG Base Excess ABG Hemoglobin ABG Oxyhemoglobin ABG Sodium ABG Chloride ABG Glucose Oxyhemoglobin Sodium Potassium Chloride Carbon Dioxide BUN Creatinine Glucose POC Glucose 109 H Hemoglobin A1c Lactic Acid Uric Acid Calcium Phosphorus Magnesium Alkaline Phosphatase Lactate Dehydrogenase C-Reactive Protein Total Protein Albumin Arterial Blood Glucose Urine WBC (Auto) Crossmatch 07/02/21 07/02/21 07/02/21 05:23 05:23 05:29 WBC RBC 3.35 L Hgb Hct MCHC Lymph % (Auto) [place] % (Auto) Lymph # (Auto) [place] # (Auto) Seg Neutrophils % Seg Neuts % (Manual) Lymphocytes % (Manual) Seg Neutrophils # Seg Neutrophils # Man Lymphocytes # (Manual) PT INR D-Dimer Heparin Anti-Xa Level ABG pH POC ABG pCO2 ABG pO2 ABG HCO3 ABG O2 Saturation ABG Base Excess ABG Hemoglobin ABG Oxyhemoglobin ABG Sodium ABG Chloride ABG Glucose Oxyhemoglobin Sodium Potassium Chloride Carbon Dioxide 33 H BUN 21 H Creatinine 0.5 L Glucose 122 H POC Glucose 118 H Hemoglobin A1c Lactic Acid Uric Acid Calcium Phosphorus Magnesium Alkaline Phosphatase Lactate Dehydrogenase C-Reactive Protein Total Protein Albumin Arterial Blood Glucose Urine WBC (Auto) Crossmatch 07/02/21 07/02/21 07/02/21 11:38 18:08 23:27 WBC RBC Hgb Hct MCHC Lymph % (Auto) [place] % (Auto) Lymph # (Auto) [place] # (Auto) Seg Neutrophils % Seg Neuts % (Manual) Lymphocytes % (Manual) Seg Neutrophils # Seg Neutrophils # Man Lymphocytes # (Manual) PT INR D-Dimer Heparin Anti-Xa Level ABG pH POC ABG pCO2 ABG pO2 ABG HCO3 ABG O2 Saturation ABG Base Excess ABG Hemoglobin ABG Oxyhemoglobin ABG Sodium ABG Chloride ABG Glucose Oxyhemoglobin Sodium Potassium Chloride Carbon Dioxide BUN Creatinine Glucose POC Glucose 177 H 153 H 143 H Hemoglobin A1c Lactic Acid Uric Acid Calcium Phosphorus Magnesium Alkaline Phosphatase Lactate Dehydrogenase C-Reactive Protein Total Protein Albumin Arterial Blood Glucose Urine WBC (Auto) Crossmatch 07/03/21 07/03/21 07/03/21 04:09 07:57 10:59 WBC RBC Hgb Hct MCHC Lymph % (Auto) [place] % (Auto) Lymph # (Auto) [place] # (Auto) Seg Neutrophils % Seg Neuts % (Manual) Lymphocytes % (Manual) Seg Neutrophils # Seg Neutrophils # Man Lymphocytes # (Manual) PT INR D-Dimer Heparin Anti-Xa Level 1.90 H ABG pH POC ABG pCO2 ABG pO2 ABG HCO3 ABG O2 Saturation ABG Base Excess ABG Hemoglobin ABG Oxyhemoglobin ABG Sodium ABG Chloride ABG Glucose Oxyhemoglobin Sodium Potassium Chloride Carbon Dioxide BUN Creatinine Glucose POC Glucose 158 H 175 H Hemoglobin A1c Lactic Acid Uric Acid Calcium Phosphorus Magnesium Alkaline Phosphatase Lactate Dehydrogenase C-Reactive Protein Total Protein Albumin Arterial Blood Glucose Urine WBC (Auto) Crossmatch 07/03/21 07/03/21 07/04/21 15:40 23:45 04:52 WBC RBC Hgb Hct MCHC Lymph % (Auto) [place] % (Auto) Lymph # (Auto) [place] # (Auto) Seg Neutrophils % Seg Neuts % (Manual) Lymphocytes % (Manual) Seg Neutrophils # Seg Neutrophils # Man Lymphocytes # (Manual) PT INR D-Dimer Heparin Anti-Xa Level ABG pH POC ABG pCO2 ABG pO2 ABG HCO3 ABG O2 Saturation ABG Base Excess ABG Hemoglobin ABG Oxyhemoglobin ABG Sodium ABG Chloride ABG Glucose Oxyhemoglobin Sodium Potassium Chloride Carbon Dioxide BUN Creatinine Glucose POC Glucose 209 H 168 H 155 H Hemoglobin A1c Lactic Acid Uric Acid Calcium Phosphorus Magnesium Alkaline Phosphatase Lactate Dehydrogenase C-Reactive Protein Total Protein Albumin Arterial Blood Glucose Urine WBC (Auto) Crossmatch 07/04/21 07/04/21 07/04/21 05:26 05:26 12:01 WBC RBC 3.32 L Hgb 9.9 L Hct MCHC Lymph % (Auto) [place] % (Auto) Lymph # (Auto) [place] # (Auto) Seg Neutrophils % Seg Neuts % (Manual) Lymphocytes % (Manual) Seg Neutrophils # Seg Neutrophils # Man Lymphocytes # (Manual) PT INR D-Dimer Heparin Anti-Xa Level ABG pH POC ABG pCO2 ABG pO2 ABG HCO3 ABG O2 Saturation ABG Base Excess ABG Hemoglobin ABG Oxyhemoglobin ABG Sodium ABG Chloride ABG Glucose Oxyhemoglobin Sodium Potassium Chloride Carbon Dioxide 36 H BUN 35 H Creatinine 0.5 L Glucose 149 H POC Glucose 184 H Hemoglobin A1c Lactic Acid Uric Acid Calcium Phosphorus Magnesium Alkaline Phosphatase Lactate Dehydrogenase C-Reactive Protein Total Protein Albumin Arterial Blood Glucose Urine WBC (Auto) Crossmatch 07/04/21 07/04/21 07/05/21 17:14 22:15 06:54 WBC RBC Hgb Hct MCHC Lymph % (Auto) [place] % (Auto) Lymph # (Auto) [place] # (Auto) Seg Neutrophils % Seg Neuts % (Manual) Lymphocytes % (Manual) Seg Neutrophils # Seg Neutrophils # Man Lymphocytes # (Manual) PT INR D-Dimer Heparin Anti-Xa Level ABG pH POC ABG pCO2 ABG pO2 ABG HCO3 ABG O2 Saturation ABG Base Excess ABG Hemoglobin ABG Oxyhemoglobin ABG Sodium ABG Chloride ABG Glucose Oxyhemoglobin Sodium Potassium Chloride Carbon Dioxide BUN Creatinine Glucose POC Glucose 151 H 189 H 192 H Hemoglobin A1c Lactic Acid Uric Acid Calcium Phosphorus Magnesium Alkaline Phosphatase Lactate Dehydrogenase C-Reactive Protein Total Protein Albumin Arterial Blood Glucose Urine WBC (Auto) Crossmatch 07/05/21 07/05/21 07/05/21 11:14 17:15 21:49 WBC RBC Hgb Hct MCHC Lymph % (Auto) [place] % (Auto) Lymph # (Auto) [place] # (Auto) Seg Neutrophils % Seg Neuts % (Manual) Lymphocytes % (Manual) Seg Neutrophils # Seg Neutrophils # Man Lymphocytes # (Manual) PT INR D-Dimer Heparin Anti-Xa Level ABG pH POC ABG pCO2 ABG pO2 ABG HCO3 ABG O2 Saturation ABG Base Excess ABG Hemoglobin ABG Oxyhemoglobin ABG Sodium ABG Chloride ABG Glucose Oxyhemoglobin Sodium Potassium Chloride Carbon Dioxide BUN Creatinine Glucose POC Glucose 187 H 212 H 199 H Hemoglobin A1c Lactic Acid Uric Acid Calcium Phosphorus Magnesium Alkaline Phosphatase Lactate Dehydrogenase C-Reactive Protein Total Protein Albumin Arterial Blood Glucose Urine WBC (Auto) Crossmatch 07/06/21 07/06/21 07/06/21 06:15 07:04 11:58 WBC RBC 3.04 L Hgb 9.1 L Hct 29.0 L MCHC Lymph % (Auto) [place] % (Auto) Lymph # (Auto) [place] # (Auto) Seg Neutrophils % Seg Neuts % (Manual) Lymphocytes % (Manual) Seg Neutrophils # Seg Neutrophils # Man Lymphocytes # (Manual) PT INR D-Dimer Heparin Anti-Xa Level ABG pH POC ABG pCO2 ABG pO2 ABG HCO3 ABG O2 Saturation ABG Base Excess ABG Hemoglobin ABG Oxyhemoglobin ABG Sodium ABG Chloride ABG Glucose Oxyhemoglobin Sodium Potassium Chloride Carbon Dioxide BUN Creatinine Glucose POC Glucose 235 H 228 H Hemoglobin A1c Lactic Acid Uric Acid Calcium Phosphorus Magnesium Alkaline Phosphatase Lactate Dehydrogenase C-Reactive Protein Total Protein Albumin Arterial Blood Glucose Urine WBC (Auto) Crossmatch 07/06/21 07/06/21 07/06/21 16:00 16:47 23:19 WBC RBC Hgb Hct MCHC Lymph % (Auto) [place] % (Auto) Lymph # (Auto) [place] # (Auto) Seg Neutrophils % Seg Neuts % (Manual) Lymphocytes % (Manual) Seg Neutrophils # Seg Neutrophils # Man Lymphocytes # (Manual) PT INR D-Dimer Heparin Anti-Xa Level ABG pH POC ABG pCO2 ABG pO2 69.0 L ABG HCO3 46.7 H ABG O2 Saturation ABG Base Excess 19.7 H ABG Hemoglobin 8.1 L ABG Oxyhemoglobin ABG Sodium ABG Chloride ABG Glucose Oxyhemoglobin 93.4 L Sodium Potassium Chloride Carbon Dioxide BUN Creatinine Glucose POC Glucose 272 H 224 H Hemoglobin A1c Lactic Acid Uric Acid Calcium Phosphorus Magnesium Alkaline Phosphatase Lactate Dehydrogenase C-Reactive Protein Total Protein Albumin Arterial Blood Glucose Urine WBC (Auto) Crossmatch 07/07/21 07/07/21 07/07/21 11:40 14:44 15:50 WBC RBC Hgb Hct MCHC Lymph % (Auto) [place] % (Auto) Lymph # (Auto) [place] # (Auto) Seg Neutrophils % Seg Neuts % (Manual) Lymphocytes % (Manual) Seg Neutrophils # Seg Neutrophils # Man Lymphocytes # (Manual) PT INR D-Dimer Heparin Anti-Xa Level ABG pH POC ABG pCO2 ABG pO2 ABG HCO3 ABG O2 Saturation ABG Base Excess ABG Hemoglobin ABG Oxyhemoglobin ABG Sodium ABG Chloride ABG Glucose Oxyhemoglobin Sodium 152 H D Potassium Chloride Carbon Dioxide 45 H* D BUN 61 H Creatinine 0.5 L Glucose 224 H POC Glucose 174 H 210 H Hemoglobin A1c Lactic Acid Uric Acid Calcium Phosphorus Magnesium Alkaline Phosphatase Lactate Dehydrogenase C-Reactive Protein Total Protein Albumin Arterial Blood Glucose Urine WBC (Auto) Crossmatch 07/07/21 07/08/21 07/08/21 23:09 04:57 05:34 WBC RBC 2.91 L Hgb 8.8 L Hct 27.8 L MCHC Lymph % (Auto) [place] % (Auto) Lymph # (Auto) [place] # (Auto) Seg Neutrophils % Seg Neuts % (Manual) Lymphocytes % (Manual) Seg Neutrophils # Seg Neutrophils # Man Lymphocytes # (Manual) PT INR D-Dimer Heparin Anti-Xa Level ABG pH POC ABG pCO2 ABG pO2 ABG HCO3 ABG O2 Saturation ABG Base Excess ABG Hemoglobin ABG Oxyhemoglobin ABG Sodium ABG Chloride ABG Glucose Oxyhemoglobin Sodium Potassium Chloride Carbon Dioxide BUN Creatinine Glucose POC Glucose 188 H 156 H Hemoglobin A1c Lactic Acid Uric Acid Calcium Phosphorus Magnesium Alkaline Phosphatase Lactate Dehydrogenase C-Reactive Protein Total Protein Albumin Arterial Blood Glucose Urine WBC (Auto) Crossmatch 07/08/21 07/08/21 07/08/21 05:34 11:20 16:25 WBC RBC Hgb Hct MCHC Lymph % (Auto) [place] % (Auto) Lymph # (Auto) [place] # (Auto) Seg Neutrophils % Seg Neuts % (Manual) Lymphocytes % (Manual) Seg Neutrophils # Seg Neutrophils # Man Lymphocytes # (Manual) PT INR D-Dimer Heparin Anti-Xa Level ABG pH POC ABG pCO2 ABG pO2 ABG HCO3 ABG O2 Saturation ABG Base Excess ABG Hemoglobin ABG Oxyhemoglobin ABG Sodium ABG Chloride ABG Glucose Oxyhemoglobin Sodium 154 H Potassium Chloride Carbon Dioxide 44 H* BUN 55 H Creatinine 0.5 L Glucose 202 H POC Glucose 186 H 169 H Hemoglobin A1c Lactic Acid Uric Acid Calcium 10.4 H Phosphorus Magnesium Alkaline Phosphatase Lactate Dehydrogenase C-Reactive Protein Total Protein Albumin Arterial Blood Glucose Urine WBC (Auto) Crossmatch 07/08/21 07/09/21 07/09/21 23:49 05:08 10:18 WBC RBC 2.59 L Hgb 7.6 L Hct 24.9 L MCHC Lymph % (Auto) [place] % (Auto) Lymph # (Auto) [place] # (Auto) Seg Neutrophils % Seg Neuts % (Manual) Lymphocytes % (Manual) Seg Neutrophils # Seg Neutrophils # Man Lymphocytes # (Manual) PT INR D-Dimer Heparin Anti-Xa Level ABG pH POC ABG pCO2 ABG pO2 ABG HCO3 ABG O2 Saturation ABG Base Excess ABG Hemoglobin ABG Oxyhemoglobin ABG Sodium ABG Chloride ABG Glucose Oxyhemoglobin Sodium Potassium Chloride Carbon Dioxide BUN Creatinine Glucose POC Glucose 182 H 161 H Hemoglobin A1c Lactic Acid Uric Acid Calcium Phosphorus Magnesium Alkaline Phosphatase Lactate Dehydrogenase C-Reactive Protein Total Protein Albumin Arterial Blood Glucose Urine WBC (Auto) Crossmatch 07/09/21 07/09/21 07/09/21 10:18 12:36 16:53 WBC RBC Hgb Hct MCHC Lymph % (Auto) [place] % (Auto) Lymph # (Auto) [place] # (Auto) Seg Neutrophils % Seg Neuts % (Manual) Lymphocytes % (Manual) Seg Neutrophils # Seg Neutrophils # Man Lymphocytes # (Manual) PT INR D-Dimer Heparin Anti-Xa Level ABG pH POC ABG pCO2 ABG pO2 ABG HCO3 ABG O2 Saturation ABG Base Excess ABG Hemoglobin ABG Oxyhemoglobin ABG Sodium ABG Chloride ABG Glucose Oxyhemoglobin Sodium 152 H Potassium Chloride Carbon Dioxide 46 H* BUN 53 H Creatinine 0.5 L Glucose 211 H POC Glucose 182 H 189 H Hemoglobin A1c Lactic Acid Uric Acid Calcium 10.6 H Phosphorus Magnesium Alkaline Phosphatase Lactate Dehydrogenase C-Reactive Protein Total Protein Albumin Arterial Blood Glucose Urine WBC (Auto) Crossmatch 07/09/21 07/10/21 07/10/21 23:25 04:52 04:52 WBC RBC 2.23 L Hgb 6.7 L Hct 21.6 L MCHC Lymph % (Auto) [place] % (Auto) Lymph # (Auto) [place] # (Auto) Seg Neutrophils % Seg Neuts % (Manual) Lymphocytes % (Manual) Seg Neutrophils # Seg Neutrophils # Man Lymphocytes # (Manual) PT INR D-Dimer Heparin Anti-Xa Level ABG pH POC ABG pCO2 ABG pO2 ABG HCO3 ABG O2 Saturation ABG Base Excess ABG Hemoglobin ABG Oxyhemoglobin ABG Sodium ABG Chloride ABG Glucose Oxyhemoglobin Sodium 160 H D Potassium Chloride 108.7 H Carbon Dioxide 43 H* BUN 59 H Creatinine 0.5 L Glucose 222 H POC Glucose 189 H Hemoglobin A1c Lactic Acid Uric Acid Calcium Phosphorus Magnesium Alkaline Phosphatase Lactate Dehydrogenase C-Reactive Protein Total Protein Albumin Arterial Blood Glucose Urine WBC (Auto) Crossmatch 0107/10/21 07/10/21 05:57 11:39 13:08 WBC RBC Hgb Hct MCHC Lymph % (Auto) [place] % (Auto) Lymph # (Auto) [place] # (Auto) Seg Neutrophils % Seg Neuts % (Manual) Lymphocytes % (Manual) Seg Neutrophils # Seg Neutrophils # Man Lymphocytes # (Manual) PT INR D-Dimer Heparin Anti-Xa Level ABG pH POC ABG pCO2 ABG pO2 ABG HCO3 ABG O2 Saturation ABG Base Excess ABG Hemoglobin ABG Oxyhemoglobin ABG Sodium ABG Chloride ABG Glucose Oxyhemoglobin Sodium Potassium Chloride Carbon Dioxide BUN Creatinine Glucose POC Glucose 179 H 174 H Hemoglobin A1c Lactic Acid Uric Acid Calcium Phosphorus Magnesium Alkaline Phosphatase Lactate Dehydrogenase C-Reactive Protein Total Protein Albumin Arterial Blood Glucose Urine WBC (Auto) Crossmatch See Detail 07/10/21 07/10/21 07/11/21 23:30 23:47 05:10 WBC RBC Hgb 8.1 L Hct 25.6 L MCHC Lymph % (Auto) [place] % (Auto) Lymph # (Auto) [place] # (Auto) Seg Neutrophils % Seg Neuts % (Manual) Lymphocytes % (Manual) Seg Neutrophils # Seg Neutrophils # Man Lymphocytes # (Manual) PT INR D-Dimer Heparin Anti-Xa Level ABG pH POC ABG pCO2 ABG pO2 ABG HCO3 ABG O2 Saturation ABG Base Excess ABG Hemoglobin ABG Oxyhemoglobin ABG Sodium ABG Chloride ABG Glucose Oxyhemoglobin Sodium Potassium Chloride Carbon Dioxide BUN Creatinine Glucose POC Glucose 230 H 190 H Hemoglobin A1c Lactic Acid Uric Acid Calcium Phosphorus Magnesium Alkaline Phosphatase Lactate Dehydrogenase C-Reactive Protein Total Protein Albumin Arterial Blood Glucose Urine WBC (Auto) Crossmatch 07/11/21 07/11/21 07/11/21 11:56 16:21 22:55 WBC RBC Hgb Hct MCHC Lymph % (Auto) [place] % (Auto) Lymph # (Auto) [place] # (Auto) Seg Neutrophils % Seg Neuts % (Manual) Lymphocytes % (Manual) Seg Neutrophils # Seg Neutrophils # Man Lymphocytes # (Manual) PT INR D-Dimer Heparin Anti-Xa Level ABG pH POC ABG pCO2 ABG pO2 ABG HCO3 ABG O2 Saturation ABG Base Excess ABG Hemoglobin ABG Oxyhemoglobin ABG Sodium ABG Chloride ABG Glucose Oxyhemoglobin Sodium Potassium Chloride Carbon Dioxide BUN Creatinine Glucose POC Glucose 161 H 152 H 196 H Hemoglobin A1c Lactic Acid Uric Acid Calcium Phosphorus Magnesium Alkaline Phosphatase Lactate Dehydrogenase C-Reactive Protein Total Protein Albumin Arterial Blood Glucose Urine WBC (Auto) Crossmatch 07/11/21 07/12/21 07/12/21 Unknown 04:50 05:33 WBC RBC Hgb 7.2 L Hct 23.0 L MCHC Lymph % (Auto) [place] % (Auto) Lymph # (Auto) [place] # (Auto) Seg Neutrophils % Seg Neuts % (Manual) Lymphocytes % (Manual) Seg Neutrophils # Seg Neutrophils # Man Lymphocytes # (Manual) PT INR D-Dimer Heparin Anti-Xa Level ABG pH POC ABG pCO2 ABG pO2 ABG HCO3 ABG O2 Saturation ABG Base Excess ABG Hemoglobin ABG Oxyhemoglobin ABG Sodium ABG Chloride ABG Glucose Oxyhemoglobin Sodium 160 H Potassium Chloride 109.2 H Carbon Dioxide 44 H* BUN 56 H Creatinine Glucose 170 H POC Glucose 168 H Hemoglobin A1c Lactic Acid Uric Acid Calcium Phosphorus Magnesium Alkaline Phosphatase Lactate Dehydrogenase C-Reactive Protein Total Protein Albumin Arterial Blood Glucose Urine WBC (Auto) Crossmatch 07/12/21 07/12/21 07/12/21 05:33 11:59 13:35 WBC RBC Hgb Hct MCHC Lymph % (Auto) [place] % (Auto) Lymph # (Auto) [place] # (Auto) Seg Neutrophils % Seg Neuts % (Manual) Lymphocytes % (Manual) Seg Neutrophils # Seg Neutrophils # Man Lymphocytes # (Manual) PT INR D-Dimer Heparin Anti-Xa Level ABG pH POC ABG pCO2 ABG pO2 ABG HCO3 ABG O2 Saturation ABG Base Excess ABG Hemoglobin ABG Oxyhemoglobin ABG Sodium ABG Chloride ABG Glucose Oxyhemoglobin Sodium 159 H 157 H Potassium Chloride 109.5 H 107.6 H Carbon Dioxide 44 H* 46 H* BUN 65 H 69 H Creatinine Glucose 206 H 221 H POC Glucose 203 H Hemoglobin A1c Lactic Acid Uric Acid Calcium Phosphorus Magnesium Alkaline Phosphatase Lactate Dehydrogenase C-Reactive Protein Total Protein Albumin Arterial Blood Glucose Urine WBC (Auto) Crossmatch 07/12/21 07/13/21 07/13/21 17:05 01:10 04:19 WBC RBC Hgb 6.8 L Hct 21.8 L MCHC Lymph % (Auto) [place] % (Auto) Lymph # (Auto) [place] # (Auto) Seg Neutrophils % Seg Neuts % (Manual) Lymphocytes % (Manual) Seg Neutrophils # Seg Neutrophils # Man Lymphocytes # (Manual) PT INR D-Dimer Heparin Anti-Xa Level ABG pH POC ABG pCO2 ABG pO2 ABG HCO3 ABG O2 Saturation ABG Base Excess ABG Hemoglobin ABG Oxyhemoglobin ABG Sodium ABG Chloride ABG Glucose Oxyhemoglobin Sodium Potassium Chloride Carbon Dioxide BUN Creatinine Glucose POC Glucose 208 H 245 H Hemoglobin A1c Lactic Acid Uric Acid Calcium Phosphorus Magnesium Alkaline Phosphatase Lactate Dehydrogenase C-Reactive Protein Total Protein Albumin Arterial Blood Glucose Urine WBC (Auto) Crossmatch 07/13/21 07/13/21 07/13/21 04:19 06:28 11:50 WBC RBC Hgb Hct MCHC Lymph % (Auto) [place] % (Auto) Lymph # (Auto) [place] # (Auto) Seg Neutrophils % Seg Neuts % (Manual) Lymphocytes % (Manual) Seg Neutrophils # Seg Neutrophils # Man Lymphocytes # (Manual) PT INR D-Dimer Heparin Anti-Xa Level ABG pH POC ABG pCO2 ABG pO2 ABG HCO3 ABG O2 Saturation ABG Base Excess ABG Hemoglobin ABG Oxyhemoglobin ABG Sodium ABG Chloride ABG Glucose Oxyhemoglobin Sodium 165 H* D Potassium 3.5 L Chloride 111.1 H Carbon Dioxide 42 H* BUN 73 H Creatinine Glucose 228 H POC Glucose 205 H 251 H Hemoglobin A1c Lactic Acid Uric Acid Calcium Phosphorus Magnesium 2.50 H Alkaline Phosphatase Lactate Dehydrogenase C-Reactive Protein Total Protein Albumin Arterial Blood Glucose Urine WBC (Auto) Crossmatch Allied health notes reviewed: nursing
--- NOTE | 2021-07-13 14:14 | XRay Report ---
CHEST 1 VIEW INDICATION: Worsening Hypoxemia. COMPARISON: 06/29/2021 FINDINGS: Support devices: The patient has been extubated. Esophagogastric tube and left IJ catheter in satisfa ctory position. Heart: Stable. Lungs/Pleura: There is airspace disease in the inferior right upper lobe and in the right lower lobe with small right pleural effusion. Left lung is clear. There is smooth tapering of the trachea in the neck. IMPRESSION: 1. Airspace disease in the right mid to lower lung, new since the prior, concerning for pneumonia. Th ere appears to be a small right pleural effusion. 2. There is smooth tapering of the trachea within the neck. This could be stenosis related to prior i ntubation. Signer Name: Luis Armando Philip MD Signed: 07/13/2021 2:10 PM Workstation Name: [id number]
[2021-07-13] MEDS ORDERED: SODIUM CHLORIDE 0.9% 500 ML 500 ML IV NR (15:00)
--- NOTE | 2021-07-13 16:52 | Progress Note ---
Assessment and Plan Assessment and plan: --Anemia: Gradual drop in hemoglobin 6.7, with 1 unit PRBC improved to 8.1 Patient's Eliquis is held, closely monitor H&H, additional transfusion if needed Consultants recommendations noted and appreciated We will try to contact patient's spouse Marshal Kelley at [phone] And will update patient's condition if he is available --Acute hypercapnic respiratory failure/nasal cannula oxygen/intermittent BiPAP Currently on nasal cannula at 5 L/min will wean as tolerated and BiPAP keep SpO2 >92%, -BiPAP at night likely 2/2 to CAP, Wean as tolerated Home O2 evaluation Wean off BiPAP as tolerated --Monitor hypercapnia; Patient needs supplemental oxygen and BiPAP at night --Atrial fibrillation rate controlled -continue metoprolol and eliquis held due to GI bleeding -Cardiology following, Continue current management --Hypertension/well-controlled Continue current antihypertensives As needed medications --Type 2 diabetes Accu-Chek sliding scale coverage ADA diet Long-acting insulin as needed Resolved problems --Severe hyponatremia- resolved ---Acute metabolic encephalopathy- likely 2/2 hyponatremia ---Urinary tract infection --Community-acquired pneumonia-s/p abx Disposition Plan: Continue medical management Continue to wean off a.m. dose a.m. dose. Amaryl moderate she gets awake because she is BiPAP Home O2 evaluation, home BiPAP at discharge We'll closely monitor the patient and adjust management as needed Plan of care reviewed with the patient and her nurse Also discussed the DC planning with case management group Consults and recommendations noted and appreciated Continue current management Home O2 evaluation and BiPAP at night and as needed during daytime Case management to assist with home O2/BiPAP at discharge 07/10/2021; continue current management Wean off BiPAP as tolerated, home O2 evaluation Home BiPAP if needed 07/11/21; chronic hypercapnic respiratory failure Patient may need BiPAP at night Continue current management Considered hospice/no resources for LTAC placement 07/12/2021; patient has intermittent pauses and tachycardia Resolved after adjusting BiPAP settings, Hb dropped 8.1 -7.2 Closely monitor H&H and transfuse as needed 07/13/2021; patient is in severe distress, severe hyponatremia Receiving a lot of free water flushes, nephrology reconsulted I discussed with deep tissue massage therapist Dr. Harkins. Hospice accepted the patient for home hospice We will closely monitor the patient and adjust management as needed History Interval history: I have seen and examined the patient at the bedside Patient's chart and medications reviewed Patient is lethargic and hypoxic,Mild distress On 6 L nasal cannula oxygen, intermittent BiPAP Hospitalist Physical - Constitutional Vitals: Temp Pulse Resp BP Pulse Ox 98.3 F 119 H 20 101/42 95 07/13/21 11:55 07/13/21 11:55 07/13/21 11:55 07/13/21 11:55 07/13/21 11:55 General appearance: Present: no acute distress, well-nourished, obese (Morbidly), other (Mild lethargy) - EENT Eyes: Present: PERRL, EOM intact - Neck Neck: Present: supple, normal ROM - Respiratory Respiratory effort: normal Respiratory: bilateral: diminished, negative: rales, rhonchi, wheezing - Cardiovascular Rhythm: regular Heart Sounds: Present: S1 & S2 - Extremities Extremities: no ischemia, No edema - Abdominal General gastrointestinal: soft, non-tender, non-distended, normal bowel sounds - Integumentary Integumentary: Present: clear, warm - Psychiatric Psychiatric: other (Confused, noncommunicative) - Neurologic Neurologic: moves all extremities HEART Score - HEART Score Troponin: Troponin T < 0.010 ng/mL (0.00-0.029) 06/22/21 07:58 Results - Labs CBC & Chem 7: 07/13/21 04:19 07/13/21 04:19 Labs: Laboratory Last Values WBC 9.1 K/mm3 (4.5-11.0) 07/10/21 04:52 RBC 2.23 M/mm3 (3.65-5.03) L 07/10/21 04:52 Hgb 6.8 gm/dl (10.1-14.3) L 07/13/21 04:19 Hct 21.8 % (30.3-42.9) L 07/13/21 04:19 MCV 97 fl (79-97) 07/10/21 04:52 MCH 30 pg (28-32) 07/10/21 04:52 MCHC 31 % (30-34) 07/10/21 04:52 RDW 14.9 % (13.2-15.2) 07/10/21 04:52 Plt Count 279 K/mm3 (140-440) 07/10/21 04:52 Lymph % (Auto) 8.6 % (13.4-35.0) L 06/30/21 04:20 [place] % (Auto) 8.3 % (0.0-7.3) H 06/30/21 04:20 Eos % (Auto) 0.5 % (0.0-4.3) 06/30/21 04:20 Baso % (Auto) 0.0 % (0.0-1.8) 06/30/21 04:20 Lymph # (Auto) 1.0 K/mm3 (1.2-5.4) L 06/30/21 04:20 [place] # (Auto) 1.0 K/mm3 (0.0-0.8) H 06/30/21 04:20 Eos # (Auto) 0.1 K/mm3 (0.0-0.4) 06/30/21 04:20 Baso # (Auto) 0.0 K/mm3 (0.0-0.1) 06/30/21 04:20 Add Manual Diff Complete 06/25/21 22:55 Total Counted 100 06/25/21 22:55 Seg Neutrophils % 82.6 % (40.0-70.0) H 06/30/21 04:20 Seg Neuts % (Manual) 91.0 % (40.0-70.0) H 06/25/21 22:55 Lymphocytes % (Manual) 6.0 % (13.4-35.0) L 06/25/21 22:55 Monocytes % (Manual) 3.0 % (0.0-7.3) 06/25/21 22:55 Metamyelocytes % 1.0 % 06/24/21 05:33 Nucleated RBC % Not Reportable 06/25/21 22:55 Seg Neutrophils # 9.8 K/mm3 (1.8-7.7) H 06/30/21 04:20 Seg Neutrophils # Man 13.5 K/mm3 (1.8-7.7) H 06/25/21 22:55 Band Neutrophils # 0.0 K/mm3 06/25/21 22:55 Lymphocytes # (Manual) 0.9 K/mm3 (1.2-5.4) L 06/25/21 22:55 Abs React Lymphs (Man) 0.0 K/mm3 06/25/21 22:55 Monocytes # (Manual) 0.4 K/mm3 (0.0-0.8) 06/25/21 22:55 Eosinophils # (Manual) 0.0 K/mm3 (0.0-0.4) 06/25/21 22:55 Basophils # (Manual) 0.0 K/mm3 (0.0-0.1) 06/25/21 22:55 Metamyelocytes # 0.0 K/mm3 06/25/21 22:55 Myelocytes # 0.0 K/mm3 06/25/21 22:55 Promyelocytes # 0.0 K/mm3 06/25/21 22:55 Blast Cells # 0.0 K/mm3 06/25/21 22:55 WBC Morphology Not Reportable 06/25/21 22:55 Hypersegmented Neuts Not Reportable 06/25/21 22:55 Hyposegmented Neuts Not Reportable 06/25/21 22:55 Hypogranular Neuts Not Reportable 06/25/21 22:55 Smudge Cells Not Reportable 06/25/21 22:55 Toxic Granulation Not Reportable 06/25/21 22:55 Toxic Vacuolation Not Reportable 06/25/21 22:55 Dohle Bodies Not Reportable 06/25/21 22:55 Pelger-Huet Anomaly Not Reportable 06/25/21 22:55 Otf Rods Not Reportable 06/25/21 22:55 Platelet Estimate Consistent w auto 06/25/21 22:55 Clumped Platelets Not Reportable 06/25/21 22:55 Plt Clumps, EDTA Not Reportable 06/25/21 22:55 Large Platelets Not Reportable 06/25/21 22:55 Giant Platelets Not Reportable 06/25/21 22:55 Platelet Satelliting Not Reportable 06/25/21 22:55 Plt Morphology Comment Not Reportable 06/25/21 22:55 RBC Morphology Normal 06/25/21 22:55 Dimorphic RBCs Not Reportable 06/25/21 22:55 Polychromasia Not Reportable 06/25/21 22:55 Hypochromasia Not Reportable 06/25/21 22:55 Poikilocytosis Not Reportable 06/25/21 22:55 Anisocytosis Not Reportable 06/25/21 22:55 Microcytosis Not Reportable 06/25/21 22:55 Macrocytosis Not Reportable 06/25/21 22:55 Spherocytes Not Reportable 06/25/21 22:55 Pappenheimer Bodies Not Reportable 06/25/21 22:55 Sickle Cells Not Reportable 06/25/21 22:55 Target Cells Not Reportable 06/25/21 22:55 Tear Drop Cells Not Reportable 06/25/21 22:55 Ovalocytes Not Reportable 06/25/21 22:55 Helmet Cells Not Reportable 06/25/21 22:55 [place] Bodies Not Reportable 06/25/21 22:55 [place] Rings Not Reportable 06/25/21 22:55 William Cells Not Reportable 06/25/21 22:55 Bite Cells Not Reportable 06/25/21 22:55 Crenated Cell Not Reportable 06/25/21 22:55 Elliptocytes Not Reportable 06/25/21 22:55 Acanthocytes (Spur) Not Reportable 06/25/21 22:55 Rouleaux Not Reportable 06/25/21 22:55 Hemoglobin C Crystals Not Reportable 06/25/21 22:55 Schistocytes Not Reportable 06/25/21 22:55 Malaria parasites Not Reportable 06/25/21 22:55 Steve Bodies Not Reportable 06/25/21 22:55 Hem Pathologist Commnt No 06/25/21 22:55 PT 13.0 Sec. (12.2-14.9) 07/02/21 05:30 INR 0.88 (0.87-1.13) 07/02/21 05:30 APTT TNR 07/02/21 05:30 Thrombin Time 15.9 Sec. (15.1-19.6) 06/22/21 07:58 D-Dimer 390 ng/mlDDU (0-234) H 06/22/21 08:56 Heparin Anti-Xa Level 1.90 U.I./ml (0.3-0.7) H 07/03/21 04:09 ABG pH 7.415 pH Units (7.350-7.450) 07/06/21 16:00 POC ABG pCO2 38.0 mmHg (32.0-48.0) 06/27/21 05:06 ABG pCO2 74.5 mm Hg 07/06/21 16:00 POC ABG pO2 93.6 mmHg (83-108) 06/27/21 05:06 ABG pO2 69.0 mm Hg (80.0-90.0) L 07/06/21 16:00 POC ABG HCO3 27.7 06/27/21 05:06 ABG HCO3 46.7 mmol/L (20.0-26.0) H 07/06/21 16:00 ABG O2 Saturation 95.2 % (95.0-99.0) 07/06/21 16:00 ABG O2 Content 10.8 (0.0-44) 07/06/21 16:00 POC ABG Base Excess 4.0 06/27/21 05:06 ABG Base Excess 19.7 mmol/L (-2.0-3.0) H 07/06/21 16:00 ABG Hemoglobin 8.1 gm/dl (12.0-16.0) L 07/06/21 16:00 ABG Oxyhemoglobin 96.8 (94-98) 06/27/21 05:06 ABG Carboxyhemoglobin 1.7 % (0.0-5.0) 07/06/21 16:00 ABG Methemoglobin 0.2 % (0.0-1.5) 07/06/21 16:00 ABG Sodium 123.5 mmol/L (136.0-145.0) L 06/27/21 05:06 ABG Potassium 3.7 mmol/L (3.40-4.50) 06/27/21 05:06 ABG Chloride 91.0 mmol/L (98-107) L 06/27/21 05:06 ABG Glucose 328 mg/dL (65-95) H 06/27/21 05:06 Oxyhemoglobin 93.4 % (95.0-99.0) L 07/06/21 16:00 Carboxyhemoglobin 0.9 (0.5-1.5) 06/27/21 05:06 FiO2 40 % 07/06/21 16:00 FiO2 % 40.0 06/27/21 05:06 Sodium 165 mmol/L (137-145) H* D 07/13/21 04:19 Potassium 3.5 mmol/L (3.6-5.0) L 07/13/21 04:19 Chloride 111.1 mmol/L (98-107) H 07/13/21 04:19 Carbon Dioxide 42 mmol/L (22-30) H* 07/13/21 04:19 Anion Gap 15 mmol/L 07/13/21 04:19 BUN 73 mg/dL (7-17) H 07/13/21 04:19 Creatinine 0.8 mg/dL (0.6-1.2) 07/13/21 04:19 Estimated GFR > 60 ml/min 07/13/21 04:19 BUN/Creatinine Ratio 91 % 07/13/21 04:19 Glucose 228 mg/dL (65-100) H 07/13/21 04:19 POC Glucose 251 mg/dL (70-105) H 07/13/21 11:50 Hemoglobin A1c 6.6 % (4-6) H 06/23/21 05:29 Osmolality 240 Mosm/kg 06/22/21 23:24 Lactic Acid 1.60 mmol/L (0.7-2.0) 06/25/21 22:55 Uric Acid 3.2 mg/dL (3.5-7.6) L 06/23/21 05:29 Calcium 9.7 mg/dL (8.4-10.2) 07/13/21 04:19 Phosphorus 3.10 mg/dL (2.5-4.5) 07/02/21 05:23 Magnesium 2.50 mg/dL (1.7-2.3) H 07/13/21 04:19 Ferritin 102.1 ng/mL (10.0-200.0) 06/22/21 08:56 Total Bilirubin 0.30 mg/dL (0.1-1.2) 06/29/21 05:13 Direct Bilirubin < 0.2 mg/dL (0-0.2) 06/26/21 04:32 Indirect Bilirubin 0.1 mg/dL 06/26/21 04:32 AST 12 units/L (5-40) 06/29/21 05:13 ALT 9 units/L (7-56) 06/29/21 05:13 Alkaline Phosphatase 31 units/L (35-129) L 06/29/21 05:13 Lactate Dehydrogenase 220 units/L (91-180) H 06/22/21 08:56 Troponin T < 0.010 ng/mL (0.00-0.029) 06/22/21 07:58 C-Reactive Protein 5.40 mg/dL (0.00-1.30) H 06/22/21 08:56 Total Protein 3.3 g/dL (6.3-8.2) L D 06/29/21 05:13 Albumin 1.9 g/dL (3.9-5) L 06/29/21 05:13 Albumin/Globulin Ratio 1.4 % 06/29/21 05:13 Procalcitonin < 0.05 ng/mL (<0.15) 06/22/21 08:56 TSH 4.050 mlU/mL (0.270-4.200) 07/12/21 13:35 Total Cortisol 36.4 mcg/dL () 06/26/21 16:06 Arterial Blood Glucose 328 mg/dL (65-95) H 06/27/21 05:06 Arterial Blood Ionized Calcium 4.9 mg/dL (4.6-5.3) 06/27/21 05:06 Urine Color Yellow (Yellow) 06/26/21 09:48 Urine Turbidity Slightly-cloudy (Clear) 06/26/21 09:48 Urine pH 6.0 (5.0-7.0) 06/26/21 09:48 Ur Specific [place] 1.014 (1.003-1.030) 06/26/21 09:48 Urine Protein 30 mg/dl mg/dL (Negative) 06/26/21 09:48 Urine Glucose (UA) 50 mg/dL (Negative) 06/26/21 09:48 Urine Ketones 20 mg/dL (Negative) 06/26/21 09:48 Urine Blood Mod (Negative) 06/26/21 09:48 Urine Nitrite Neg (Negative) 06/26/21 09:48 Urine Bilirubin Neg (Negative) 06/26/21 09:48 Urine Urobilinogen < 2.0 mg/dL (<2.0) 06/26/21 09:48 Ur Leukocyte Esterase Mod (Negative) 06/26/21 09:48 Urine WBC (Auto) 69.0 /HPF (0.0-6.0) H 06/26/21 09:48 Urine RBC (Auto) 29.0 /HPF (0.0-6.0) 06/26/21 09:48 U Epithel Cells (Auto) 1.0 /HPF (0-13.0) 06/26/21 09:48 Urine Bacteria (Auto) 4+ /HPF (Negative) 06/26/21 09:48 Ur Transition Epith Cell 1 /HPF 06/22/21 11:47 Hyaline Casts 5 /LPF 06/22/21 11:47 Urine Mucus Few /HPF 06/26/21 09:48 Urine Yeast (Budding) 3+ /HPF 06/26/21 09:48 Urine Osmolality 571 Mosm/kg 06/22/21 11:47 Urine Sodium 25 mmol/L 06/22/21 11:47 Coronavirus (PCR) Negative (Negative) 07/08/21 Unknown Blood Type B POSITIVE 07/10/21 13:08 Antibody Screen Negative 07/10/21 13:08 Crossmatch See Detail 07/10/21 13:08 Martines/IV: Voiding Method External Female Catheter Active Medications - Current Medications Current Medications: Generic Name Dose Route Start Last Admin Trade Name Freq PRN Reason Stop Dose Admin Acetaminophen 650 mg 06/22/21 22:21 07/08/21 12:08 Acetaminophen 325 Mg Tab PO 650 mg Q4H PRN Administration Pain MILD(1-3)/Fever >100.5/NAVA Lipase/Protease/Amylase 1 each 06/29/21 16:20 Lipase 10,500/Protease 25,000/Amylase 43,750 (Units) Dr Castellanos FEEDTUBE PRN PRN For Clogged Feeding Tube Clopidogrel Bisulfate 75 mg 06/23/21 10:00 07/13/21 09:45 Clopidogrel 75 Mg Tab PO 75 mg DAILY JUDY Administration Docusate Sodium 100 mg 06/25/21 22:00 07/13/21 09:45 Docusate Sodium 100 Mg/10 Ml Oral Liqd PO 100 mg BID JUDY Administration Famotidine 20 mg 06/29/21 22:00 07/13/21 09:45 Famotidine 20 Mg Tab FEEDTUBE 20 mg BID JUDY Administration Sodium Chloride 500 mls @ 0 mls/hr 07/13/21 15:00 Nacl 0.9% 500 Ml IV 07/13/21 17:00 ONCE NR As Directed Dextrose 1,000 mls @ 100 mls/hr 07/13/21 16:00 D5w IV DIRECT JUDY Insulin Human Lispro 0 unit 06/26/21 12:00 07/13/21 12:55 Insulin Lispro 100 Unit/Ml SUB-Q 6 unit Q6HR JUDY Administration Protocol Metoclopramide HCl 10 mg 06/22/21 22:21 Metoclopramide 10 Mg/2 Ml Inj IV Q6H PRN Nausea And Vomiting Ondansetron HCl 4 mg 06/22/21 22:21 Ondansetron 4 Mg/2 Ml Inj IV Q8H PRN Nausea And Vomiting Pravastatin Sodium 40 mg 06/23/21 22:00 07/12/21 21:48 Pravastatin 40 Mg Tab PO Not Given QHS JUDY Simple Syrup 15 ml 06/29/21 16:20 Simple Syrup 15 Ml FEEDTUBE PRN PRN Hypoglycemia Simple Syrup 30 ml 06/29/21 16:20 Simple Syrup 15 Ml FEEDTUBE PRN PRN Hypoglycemia Sodium Bicarbonate 325 mg 06/29/21 16:20 Sodium Bicarbonate 325 Mg Tab FEEDTUBE PRN PRN For Clogged Feeding Tube Sodium Chloride 10 ml 06/23/21 10:00 07/13/21 09:45 Sodium Chloride 0.9% 10 Ml Flush Syringe IV 10 ml BID JUDY Administration Sodium Chloride 10 ml 06/22/21 22:21 Sodium Chloride 0.9% 10 Ml Flush Syringe IV PRN PRN LINE FLUSH Nutrition/Malnutrition Assess - Dietary Evaluation Nutrition/Malnutrition Findings: Nutrition Notes Start: 06/26/21 11:01 Freq: Status: Active Protocol: Document 07/08/21 17:32 VINCENZO (Rec: 07/08/21 17:40 VINCENZO [id number]) Nutrition Notes Initial or Follow up Brief Note Current Diet TF-Vital High Protein @ 50 ml/ hr (since D 06/29). Height 5 ft 5 in Weight 114.4 kg [place] Body Weight (kg) 56.81 BMI 41.9 Weight change and time frame Discrepancy of 28.217 Kg body weight change in 1 week reported. Weight Status Morbidly Obese Subjective/Other Information RD consult for routine F/U on TF tolerance. TF continues without changes, thus, well tolerated. Percent of energy/protein needs met: Prescribed Vital High Protein @ 50 ml/hr provides for energy /protein needs (1,200 Kcal/105 g) during LOS, 100% Kcal; 90% AA. Current % PO Other Minimum of two criteria No #1 Nutrition Diagnosis Inadequate oral intake Diagnosis Progress(for reassessment Continues documentation) Nutrition Intervention Nutrition Support: Continue Vital High Protein @ 50 ml/hr. Flush: 50 ml water Q 4 hr. Kcal 1,200 Protein (gm) 105 Carbohydrates (gm) 134 Fat (gm) 28 Fluid (mL) 1,003 Fiber (gm) 0 % RDI: 100% Kcal; 90% AA. Goal #1 Provide at least 75% of energy /protein needs through Enteral Feeding during LOS. Follow-Up By: 07/14/21 Additional Comments Continue monitoring TF tolerance and BM.
--- NOTE | 2021-07-13 17:05 | Event Note ---
Date: 07/13/[address] Shahana mclain for hyponatremia,agreed with free water flushes and D5W We will closely monitor electrolytes and adjust as needed
[2021-07-13] MEDS: PRAVASTATIN 40 MG TAB PO SCH (22:55)
[2021-07-14] MEDS: DEXTROSE 5% IN WATER 1,000 ML IV SCH ×2 (05:57→10:08)
[2021-07-14] MEDS: INSULIN LISPRO 100 UNIT/ML SUB-Q SCH ×2 (05:58)
[2021-07-14] MEDS ORDERED: SODIUM CHLORIDE 0.9% 1000 ML 1,000 ML ONE (07:25)
[2021-07-14 07:36] VITALS: BP 63/30
[2021-07-14 07:36] LABS: Basophils # (Auto) 0.1 K/mm3 (0.0-0.1); Basophils % (Auto) 0.6 % (0.0-1.8); Eosinophils # (Auto) 0.3 K/mm3 (0.0-0.4); Eosinophils % (Auto) 3.2 % (0.0-4.3); Hematocrit 22.2 % (30.3-42.9); Hemoglobin 6.8 gm/dl (10.1-14.3); Lymphocytes # (Auto) 2.1 K/mm3 (1.2-5.4); Mean Corpuscular HGB Conc 31 % (30-34); Mean Corpuscular Volume 101 fl (79-97); Monocytes # (Auto) 0.7 K/mm3 (0.0-0.8); Monocytes % (Auto) 6.9 % (0.0-7.3); Platelet Count 217 K/mm3 (140-440); Red Blood Count 2.21 M/mm3 (3.65-5.03); Red Cell Distribution Width 16.3 % (13.2-15.2)
[2021-07-14 07:54] LABS: Calcium 9.7 mg/dL (8.4-10.2)
[2021-07-14] MEDS ORDERED: SODIUM CHLORIDE 0.9% 500 ML 500 ML IV NR (09:51)
--- NOTE | 2021-07-14 09:54 | Progress Note ---
Assessment and Plan Assessment and plan: --Anemia: Gradual drop in hemoglobin 6.7, with 1 unit PRBC improved to 8.1 Patient's Eliquis is held, closely monitor H&H, additional transfusion if needed Consultants recommendations noted and appreciated We will try to contact patient's spouse Marshal Kelley at [phone] And will update patient's condition if he is available --Acute hypercapnic respiratory failure/nasal cannula oxygen/intermittent BiPAP Currently on nasal cannula at 5 L/min will wean as tolerated and BiPAP keep SpO2 >92%, -BiPAP at night likely 2/2 to CAP, Wean as tolerated Home O2 evaluation Wean off BiPAP as tolerated --Monitor hypercapnia; Patient needs supplemental oxygen and BiPAP at night --Atrial fibrillation rate controlled -continue metoprolol and eliquis held due to GI bleeding -Cardiology following, Continue current management --Hypertension/well-controlled Continue current antihypertensives As needed medications --Type 2 diabetes Accu-Chek sliding scale coverage ADA diet Long-acting insulin as needed Resolved problems --Severe hyponatremia- resolved ---Acute metabolic encephalopathy- likely 2/2 hyponatremia ---Urinary tract infection --Community-acquired pneumonia-s/p abx Disposition Plan: Continue medical management Continue to wean off a.m. dose a.m. dose. Amaryl moderate she gets awake because she is BiPAP Home O2 evaluation, home BiPAP at discharge We'll closely monitor the patient and adjust management as needed Plan of care reviewed with the patient and her nurse Also discussed the DC planning with case management group Consults and recommendations noted and appreciated Continue current management Home O2 evaluation and BiPAP at night and as needed during daytime Case management to assist with home O2/BiPAP at discharge 07/10/2021; continue current management Wean off BiPAP as tolerated, home O2 evaluation Home BiPAP if needed 07/11/21; chronic hypercapnic respiratory failure Patient may need BiPAP at night Continue current management Considered hospice/no resources for LTAC placement 07/12/2021; patient has intermittent pauses and tachycardia Resolved after adjusting BiPAP settings, Hb dropped 8.1 -7.2 Closely monitor H&H and transfuse as needed 07/13/2021; patient is in severe distress, severe hyponatremia Receiving a lot of free water flushes, nephrology reconsulted I discussed with quantitative research analyst Dr. Harkins. Hospice accepted the patient for home hospice We will closely monitor the patient and adjust management as needed Hospitalist Physical - Constitutional Vitals: Temp Pulse Resp BP Pulse Ox 98.9 F 64 26 H 63/30 92 07/14/21 06:36 07/14/21 07:32 07/14/21 07:32 07/14/21 07:32 07/14/21 07:32 General appearance: Present: severe distress, well-nourished, obese (Morbidly), other (Mild lethargy) - EENT Eyes: Present: PERRL, EOM intact - Neck Neck: Present: supple, normal ROM - Respiratory Respiratory effort: normal Respiratory: bilateral: diminished, negative: rales, rhonchi, wheezing - Cardiovascular Rhythm: regular Heart Sounds: Present: S1 & S2 - Extremities Extremities: no ischemia Extremity abnormal: edema - Abdominal General gastrointestinal: soft, non-tender, non-distended, normal bowel sounds - Integumentary Integumentary: Present: clear, warm - Psychiatric Psychiatric: other (confused) HEART Score - HEART Score Troponin: Troponin T < 0.010 ng/mL (0.00-0.029) 06/22/21 07:58 Results - Labs CBC & Chem 7: 07/14/21 07:28 07/14/21 07:28 Labs: Laboratory Last Values WBC 10.6 K/mm3 (4.5-11.0) 07/14/21 07:28 RBC 2.21 M/mm3 (3.65-5.03) L 07/14/21 07:28 Hgb 6.8 gm/dl (10.1-14.3) L 07/14/21 07:28 Hct 22.2 % (30.3-42.9) L 07/14/21 07:28 MCV 101 fl (79-97) H 07/14/21 07:28 MCH 31 pg (28-32) 07/14/21 07:28 MCHC 31 % (30-34) 07/14/21 07:28 RDW 16.3 % (13.2-15.2) H 07/14/21 07:28 Plt Count 217 K/mm3 (140-440) 07/14/21 07:28 Lymph % (Auto) 20.0 % (13.4-35.0) 07/14/21 07:28 Hendry % (Auto) 6.9 % (0.0-7.3) 07/14/21 07:28 Eos % (Auto) 3.2 % (0.0-4.3) 07/14/21 07: Baso % (Auto) 0.6 % (0.0-1.8) 07/14/21 07:28 Lymph # (Auto) 2.1 K/mm3 (1.2-5.4) 07/14/21 07: Hendry # (Auto) 0.7 K/mm3 (0.0-0.8) 07/14/21 07: Eos # (Auto) 0.3 K/mm3 (0.0-0.4) 07/14/21 07: Baso # (Auto) 0.1 K/mm3 (0.0-0.1) 07/14/21 07: Add Manual Diff Complete 06/25/21 22:55 Total Counted 100 06/25/21 22:55 Seg Neutrophils % 69.3 % (40.0-70.0) 07/14/21 07: Seg Neuts % (Manual) 91.0 % (40.0-70.0) H 06/25/21 22:55 Lymphocytes % (Manual) 6.0 % (13.4-35.0) L 06/25/21 22:55 Monocytes % (Manual) 3.0 % (0.0-7.3) 06/25/21 22:55 Metamyelocytes % 1.0 % 06/24/21 05:33 Nucleated RBC % Not Reportable 06/25/21 22:55 Seg Neutrophils # 7.3 K/mm3 (1.8-7.7) 07/14/21 07:28 Seg Neutrophils # Man 13.5 K/mm3 (1.8-7.7) H 06/25/21 22:55 Band Neutrophils # 0.0 K/mm3 06/25/21 22:55 Lymphocytes # (Manual) 0.9 K/mm3 (1.2-5.4) L 06/25/21 22:55 Abs React Lymphs (Man) 0.0 K/mm3 06/25/21 22:55 Monocytes # (Manual) 0.4 K/mm3 (0.0-0.8) 06/25/21 22:55 Eosinophils # (Manual) 0.0 K/mm3 (0.0-0.4) 06/25/21 22:55 Basophils # (Manual) 0.0 K/mm3 (0.0-0.1) 06/25/21 22:55 Metamyelocytes # 0.0 K/mm3 06/25/21 22:55 Myelocytes # 0.0 K/mm3 06/25/21 22:55 Promyelocytes # 0.0 K/mm3 06/25/21 22:55 Blast Cells # 0.0 K/mm3 06/25/21 22:55 WBC Morphology Not Reportable 06/25/21 22:55 Hypersegmented Neuts Not Reportable 06/25/21 22:55 Hyposegmented Neuts Not Reportable 06/25/21 22:55 Hypogranular Neuts Not Reportable 06/25/21 22:55 Smudge Cells Not Reportable 06/25/21 22:55 Toxic Granulation Not Reportable 06/25/21 22:55 Toxic Vacuolation Not Reportable 06/25/21 22:55 Dohle Bodies Not Reportable 06/25/21 22:55 Pelger-Huet Anomaly Not Reportable 06/25/21 22:55 Otf Rods Not Reportable 06/25/21 22:55 Platelet Estimate Consistent w auto 06/25/21 22:55 Clumped Platelets Not Reportable 06/25/21 22:55 Plt Clumps, EDTA Not Reportable 06/25/21 22:55 Large Platelets Not Reportable 06/25/21 22:55 Giant Platelets Not Reportable 06/25/21 22:55 Platelet Satelliting Not Reportable 06/25/21 22:55 Plt Morphology Comment Not Reportable 06/25/21 22:55 RBC Morphology Normal 06/25/21 22:55 Dimorphic RBCs Not Reportable 06/25/21 22:55 Polychromasia Not Reportable 06/25/21 22:55 Hypochromasia Not Reportable 06/25/21 22:55 Poikilocytosis Not Reportable 06/25/21 22:55 Anisocytosis Not Reportable 06/25/21 22:55 Microcytosis Not Reportable 06/25/21 22:55 Macrocytosis Not Reportable 06/25/21 22:55 Spherocytes Not Reportable 06/25/21 22:55 Pappenheimer Bodies Not Reportable 06/25/21 22:55 Sickle Cells Not Reportable 06/25/21 22:55 Target Cells Not Reportable 06/25/21 22:55 Tear Drop Cells Not Reportable 06/25/21 22:55 Ovalocytes Not Reportable 06/25/21 22:55 Helmet Cells Not Reportable 06/25/21 22:55 [place] Bodies Not Reportable 06/25/21 22:55 [place] Rings Not Reportable 06/25/21 22:55 William Cells Not Reportable 06/25/21 22:55 Bite Cells Not Reportable 06/25/21 22:55 Crenated Cell Not Reportable 06/25/21 22:55 Elliptocytes Not Reportable 06/25/21 22:55 Acanthocytes (Spur) Not Reportable 06/25/21 22:55 Rouleaux Not Reportable 06/25/21 22:55 Hemoglobin C Crystals Not Reportable 06/25/21 22:55 Schistocytes Not Reportable 06/25/21 22:55 Malaria parasites Not Reportable 06/25/21 22:55 Steve Bodies Not Reportable 06/25/21 22:55 Hem Pathologist Commnt No 06/25/21 22:55 PT 13.0 Sec. (12.2-14.9) 07/02/21 05:30 INR 0.88 (0.87-1.13) 07/02/21 05:30 APTT TNR 07/02/21 05:30 Thrombin Time 15.9 Sec. (15.1-19.6) 06/22/21 07:58 D-Dimer 390 ng/mlDDU (0-234) H 06/22/21 08:56 Heparin Anti-Xa Level 1.90 U.I./ml (0.3-0.7) H 07/03/21 04:09 ABG pH 7.415 pH Units (7.350-7.450) 07/06/21 16:00 POC ABG pCO2 38.0 mmHg (32.0-48.0) 06/27/21 05:06 ABG pCO2 74.5 mm Hg 07/06/21 16:00 POC ABG pO2 93.6 mmHg (83-108) 06/27/21 05:06 ABG pO2 69.0 mm Hg (80.0-90.0) L 07/06/21 16:00 POC ABG HCO3 27.7 06/27/21 05:06 ABG HCO3 46.7 mmol/L (20.0-26.0) H 07/06/21 16:00 ABG O2 Saturation 95.2 % (95.0-99.0) 07/06/21 16:00 ABG O2 Content 10.8 (0.0-44) 07/06/21 16:00 POC ABG Base Excess 4.0 06/27/21 05:06 ABG Base Excess 19.7 mmol/L (-2.0-3.0) H 07/06/21 16:00 ABG Hemoglobin 8.1 gm/dl (12.0-16.0) L 07/06/21 16:00 ABG Oxyhemoglobin 96.8 (94-98) 06/27/21 05:06 ABG Carboxyhemoglobin 1.7 % (0.0-5.0) 07/06/21 16:00 ABG Methemoglobin 0.2 % (0.0-1.5) 07/06/21 16:00 ABG Sodium 123.5 mmol/L (136.0-145.0) L 06/27/21 05:06 ABG Potassium 3.7 mmol/L (3.40-4.50) 06/27/21 05:06 ABG Chloride 91.0 mmol/L (98-107) L 06/27/21 05:06 ABG Glucose 328 mg/dL (65-95) H 06/27/21 05:06 Oxyhemoglobin 93.4 % (95.0-99.0) L 07/06/21 16:00 Carboxyhemoglobin 0.9 (0.5-1.5) 06/27/21 05:06 FiO2 40 % 07/06/21 16:00 FiO2 % 40.0 06/27/21 05:06 Sodium 155 mmol/L (137-145) H 07/14/21 07:28 Potassium 3.7 mmol/L (3.6-5.0) 07/14/21 07:28 Chloride 104.7 mmol/L (98-107) 07/14/21 07:28 Carbon Dioxide 38 mmol/L (22-30) H 07/14/21 07:28 Anion Gap 16 mmol/L 07/14/21 07:28 BUN 74 mg/dL (7-17) H 07/14/21 07:28 Creatinine 1.2 mg/dL (0.6-1.2) 07/14/21 07:28 Estimated GFR 45 ml/min 07/14/21 07:28 BUN/Creatinine Ratio 62 % 07/14/21 07:28 Glucose 403 mg/dL (65-100) H 07/14/21 07:28 POC Glucose 272 mg/dL (70-105) H 07/14/21 05:52 Hemoglobin A1c 6.6 % (4-6) H 06/23/21 05:29 Osmolality 240 Mosm/kg 06/22/21 23:24 Lactic Acid 1.60 mmol/L (0.7-2.0) 06/25/21 22:55 Uric Acid 3.2 mg/dL (3.5-7.6) L 06/23/21 05:29 Calcium 9.7 mg/dL (8.4-10.2) 07/14/21 07:28 Phosphorus 3.10 mg/dL (2.5-4.5) 07/02/21 05:23 Magnesium 2.60 mg/dL (1.7-2.3) H 07/14/21 07:28 Ferritin 102.1 ng/mL (10.0-200.0) 06/22/21 08:56 Total Bilirubin 0.30 mg/dL (0.1-1.2) 06/29/21 05:13 Direct Bilirubin < 0.2 mg/dL (0-0.2) 06/26/21 04:32 Indirect Bilirubin 0.1 mg/dL 06/26/21 04:32 AST 12 units/L (5-40) 06/29/21 05:13 ALT 9 units/L (7-56) 06/29/21 05:13 Alkaline Phosphatase 31 units/L (35-129) L 06/29/21 05:13 Lactate Dehydrogenase 220 units/L (91-180) H 06/22/21 08:56 Troponin T < 0.010 ng/mL (0.00-0.029) 06/22/21 07:58 C-Reactive Protein 5.40 mg/dL (0.00-1.30) H 06/22/21 08:56 Total Protein 3.3 g/dL (6.3-8.2) L D 06/29/21 05:13 Albumin 1.9 g/dL (3.9-5) L 06/29/21 05:13 Albumin/Globulin Ratio 1.4 % 06/29/21 05:13 Procalcitonin < 0.05 ng/mL (<0.15) 06/22/21 08:56 TSH 4.050 mlU/mL (0.270-4.200) 07/12/21 13:35 Total Cortisol 36.4 mcg/dL () 06/26/21 16:06 Arterial Blood Glucose 328 mg/dL (65-95) H 06/27/21 05:06 Arterial Blood Ionized Calcium 4.9 mg/dL (4.6-5.3) 06/27/21 05:06 Urine Color Yellow (Yellow) 06/26/21 09:48 Urine Turbidity Slightly-cloudy (Clear) 06/26/21 09:48 Urine pH 6.0 (5.0-7.0) 06/26/21 09:48 Ur Specific Maxwell 1.014 (1.003-1.030) 06/26/21 09:48 Urine Protein 30 mg/dl mg/dL (Negative) 06/26/21 09:48 Urine Glucose (UA) 50 mg/dL (Negative) 06/26/21 09:48 Urine Ketones 20 mg/dL (Negative) 06/26/21 09:48 Urine Blood Mod (Negative) 06/26/21 09:48 Urine Nitrite Neg (Negative) 06/26/21 09:48 Urine Bilirubin Neg (Negative) 06/26/21 09:48 Urine Urobilinogen < 2.0 mg/dL (<2.0) 06/26/21 09:48 Ur Leukocyte Esterase Mod (Negative) 06/26/21 09:48 Urine WBC (Auto) 69.0 /HPF (0.0-6.0) H 06/26/21 09:48 Urine RBC (Auto) 29.0 /HPF (0.0-6.0) 06/26/21 09:48 U Epithel Cells (Auto) 1.0 /HPF (0-13.0) 06/26/21 09:48 Urine Bacteria (Auto) 4+ /HPF (Negative) 06/26/21 09:48 Ur Transition Epith Cell 1 /HPF 06/22/21 11:47 Hyaline Casts 5 /LPF 06/22/21 11:47 Urine Mucus Few /HPF 06/26/21 09:48 Urine Yeast (Budding) 3+ /HPF 06/26/21 09:48 Urine Osmolality 571 Mosm/kg 06/22/21 11:47 Urine Sodium 25 mmol/L 06/22/21 11:47 Coronavirus (PCR) Negative (Negative) 07/08/21 Unknown Blood Type B POSITIVE 07/13/21 18:43 Antibody Screen Negative 07/13/21 18:43 Crossmatch See Detail 07/13/21 18:43 Martines/IV: Voiding Method External Female Catheter Active Medications - Current Medications Current Medications: Generic Name Dose Route Start Last Admin Trade Name Freq PRN Reason Stop Dose Admin Acetaminophen 650 mg 06/22/21 22:21 07/08/21 12:08 Acetaminophen 325 Mg Tab PO 650 mg Q4H PRN Administration Pain MILD(1-3)/Fever >100.5/NAVA Lipase/Protease/Amylase 1 each 06/29/21 16:20 Lipase 10,500/Protease 25,000/Amylase 43,750 (Units) Dr Castellanos FEEDTUBE PRN PRN For Clogged Feeding Tube Clopidogrel Bisulfate 75 mg 06/23/21 10:00 07/13/21 09:45 Clopidogrel 75 Mg Tab PO 75 mg DAILY JUDY Administration Docusate Sodium 100 mg 06/25/21 22:00 07/13/21 22:56 Docusate Sodium 100 Mg/10 Ml Oral Liqd PO 100 mg BID JUDY Administration Famotidine 20 mg 06/29/21 22:00 07/13/21 22:55 Famotidine 20 Mg Tab FEEDTUBE 20 mg BID JUDY Administration Dextrose 1,000 mls @ 75 mls/hr 07/13/21 16:00 07/14/21 05:57 D5w IV 75 mls/hr DIRECT JUDY Administration Sodium Chloride 500 mls @ 0 mls/hr 07/14/21 09:51 Nacl 0.9% 500 Ml IV 07/14/21 09:52 ONCE ONE As Directed Insulin Human Lispro 0 unit 06/26/21 12:00 07/14/21 05:58 Insulin Lispro 100 Unit/Ml SUB-Q 6 unit Q6HR JUDY Administration Protocol Metoclopramide HCl 10 mg 06/22/21 22:21 Metoclopramide 10 Mg/2 Ml Inj IV Q6H PRN Nausea And Vomiting Ondansetron HCl 4 mg 06/22/21 22:21 Ondansetron 4 Mg/2 Ml Inj IV Q8H PRN Nausea And Vomiting Pravastatin Sodium 40 mg 06/23/21 22:00 07/13/21 22:55 Pravastatin 40 Mg Tab PO 40 mg QHS JUDY Administration Simple Syrup 15 ml 06/29/21 16:20 Simple Syrup 15 Ml FEEDTUBE PRN PRN Hypoglycemia Simple Syrup 30 ml 06/29/21 16:20 Simple Syrup 15 Ml FEEDTUBE PRN PRN Hypoglycemia Sodium Bicarbonate 325 mg 06/29/21 16:20 Sodium Bicarbonate 325 Mg Tab FEEDTUBE PRN PRN For Clogged Feeding Tube Sodium Chloride 10 ml 06/23/21 10:00 07/13/21 22:56 Sodium Chloride 0.9% 10 Ml Flush Syringe IV 10 ml BID JUDY Administration Sodium Chloride 10 ml 06/22/21 22:21 Sodium Chloride 0.9% 10 Ml Flush Syringe IV PRN PRN LINE FLUSH Nutrition/Malnutrition Assess - Dietary Evaluation Nutrition/Malnutrition Findings: Nutrition Notes Start: 06/26/21 11:01 Freq: Status: Active Protocol: Document 07/08/21 17:32 VINCENZO (Rec: 07/08/21 17:40 VINCENZO [id number]) Nutrition Notes Initial or Follow up Brief Note Current Diet TF-Vital High Protein @ 50 ml/ hr (since D 06/29). Height 5 ft 5 in Weight 114.4 kg [place] Body Weight (kg) 56.81 BMI 41.9 Weight change and time frame Discrepancy of 28.217 Kg body weight change in 1 week reported. Weight Status Morbidly Obese Subjective/Other Information RD consult for routine F/U on TF tolerance. TF continues without changes, thus, well tolerated. Percent of energy/protein needs met: Prescribed Vital High Protein @ 50 ml/hr provides for energy /protein needs (1,200 Kcal/105 g) during LOS, 100% Kcal; 90% AA. Current % PO Other Minimum of two criteria No #1 Nutrition Diagnosis Inadequate oral intake Diagnosis Progress(for reassessment Continues documentation) Nutrition Intervention Nutrition Support: Continue Vital High Protein @ 50 ml/hr. Flush: 50 ml water Q 4 hr. Kcal 1,200 Protein (gm) 105 Carbohydrates (gm) 134 Fat (gm) 28 Fluid (mL) 1,003 Fiber (gm) 0 % RDI: 100% Kcal; 90% AA. Goal #1 Provide at least 75% of energy /protein needs through Enteral Feeding during LOS. Follow-Up By: 07/14/21 Additional Comments Continue monitoring TF tolerance and BM.
[2021-07-14] MEDS: CLOPIDOGREL 75 MG TAB PO SCH (10:08)
[2021-07-14] MEDS: DOCUSATE SODIUM 100 MG/10 ML ORAL LIQD PO SCH (10:08)
[2021-07-14] MEDS: FAMOTIDINE 20 MG TAB FEEDTUBE SCH (10:08)
--- NOTE | 2021-07-14 10:52 | Progress Note ---
Assessment and Plan - Patient Problems (1) Hypernatremia Current Visit: Yes Status: Acute Plan to address problem: Continue aggressive free water replacement. Follow up Sodium (2) Acute kidney injury Current Visit: Yes Status: Acute Plan to address problem: Probably Pre-renal azotemia secondary to violume depletion. Kidney function improving. Folllow up electrolytes and kidney fxn (3) Acute metabolic encephalopathy Current Visit: Yes Status: Acute Plan to address problem: Improving. Continue neuro monitoring. (4) Hypokalemia Current Visit: Yes Status: Acute Plan to address problem: Due to moderate dose thiazide diuretic and also probably poor oral intake. Thiazide diuretic has been stopped. Potassium has improved with aggressive supplementation. Follow-up level (5) Community acquired pneumonia Current Visit: Yes Status: Resolved Plan to address problem: Empiric antibiotics. Follow-up SARS coronavirus 2 PCR. Follow-up imaging of the chest (6) Essential (primary) hypertension Current Visit: Yes Status: Acute Plan to address problem: Follow-up blood pressure off of thiazide diuretic. We will start spironolactone if needed. (7) Type 2 diabetes mellitus without complications Current Visit: Yes Status: Chronic Plan to address problem: Blood sugar management by primary attending Subjective Date of service: 07/14/21 Principal diagnosis: Acute encephalopathy, CAP, PAF with RVR, Acute resp failure, Hyponatremia Interval history: Patient seen lying in bed. She is non-verbal. She is on Bipap. Events noted Objective - Exam Narrative Exam: Middle-aged female lying in bed in no acute distress HEENT: NCAT, pink conjunctiva Neck: Supple, no venous distention CVS: S1S2 RRR with no murmur, rub or gallop Chest: Clear to auscultation but BS diminished in LZ Abdomen: Obese, soft, nontender, no organomegaly, bowel sounds are present Extremities: 1-2 edema Neuro: Drowsy, not interacting - Vital Signs Vital signs: Vital Signs - 12hr 07/14/21 07/14/21 07/14/21 00:16 02:00 03:43 Temperature 98.9 F 97.1 F L Pulse Rate 101 H 60 Respiratory 20 17 Rate Blood Pressure 97/35 91/30 O2 Sat by Pulse 95 Oximetry 07/14/21 07/14/21 07/14/21 04:03 04:33 05:03 Temperature 97.4 F L 97.4 F L 97.2 F L Pulse Rate 115 H 115 H 107 H Respiratory 18 18 18 Rate Blood Pressure 92/42 96/42 98/55 O2 Sat by Pulse 95 95 95 Oximetry 07/14/21 07/14/21 06:36 07:32 Temperature 98.9 F Pulse Rate 114 H 64 Respiratory 18 26 H Rate Blood Pressure 94/44 63/30 O2 Sat by Pulse 94 92 Oximetry - Lab 07/14/21 07:28 07/14/21 07:28 Most recent lab results ABG pH 7.415 pH Units (7.350-7.450) 07/06/21 16:00 ABG pCO2 74.5 mm Hg 07/06/21 16:00 ABG pO2 69.0 mm Hg (80.0-90.0) L 07/06/21 16:00 ABG HCO3 46.7 mmol/L (20.0-26.0) H 07/06/21 16:00 ABG O2 Saturation 95.2 % (95.0-99.0) 07/06/21 16:00 Calcium 9.7 mg/dL (8.4-10.2) 07/14/21 07:28 Phosphorus 3.10 mg/dL (2.5-4.5) 07/02/21 05:23 Magnesium 2.60 mg/dL (1.7-2.3) H 07/14/21 07:28 Urine Sodium 25 mmol/L 06/22/21 11:47 Medications & Allergies - Medications Allergies/Adverse Reactions: Allergies aspirin Allergy (Verified 07/03/21 10:32) Swelling Home Medications: Home Medications Medication Instructions Recorded Confirmed Last Taken Type Atenolol/Chlorthalidone [Tenoretic 1 tab PO DAILY 06/22/21 06/22/21 Unknown History 50-25] Clopidogrel [Plavix] 75 mg PO DAILY 06/22/21 06/22/21 Unknown History Glimepiride [Amaryl] 2 mg PO QAM 06/22/21 06/22/21 Unknown History Pioglitazone [Actos] 15 mg PO DAILY 06/22/21 06/22/21 Unknown History Pravastatin [Pravachol] 40 mg PO QHS 06/22/21 06/22/21 Unknown History lisinopriL [Zestril TAB] 5 mg PO DAILY 06/22/21 06/22/21 Unknown History Active Medications: Generic Name Dose Route Start Last Admin Trade Name Freq PRN Reason Stop Dose Admin Acetaminophen 650 mg 06/22/21 22:21 07/08/21 12:08 Acetaminophen 325 Mg Tab PO 650 mg Q4H PRN Administration Pain MILD(1-3)/Fever >100.5/NAVA Lipase/Protease/Amylase 1 each 06/29/21 16:20 Lipase 10,500/Protease 25,000/Amylase 43,750 (Units) Dr Castellanos FEEDTUBE PRN PRN For Clogged Feeding Tube Clopidogrel Bisulfate 75 mg 06/23/21 10:00 07/14/21 10:08 Clopidogrel 75 Mg Tab PO Not Given DAILY JUDY Docusate Sodium 100 mg 06/25/21 22:00 07/14/21 10:08 Docusate Sodium 100 Mg/10 Ml Oral Liqd PO Not Given BID JUDY Famotidine 20 mg 06/29/21 22:00 07/14/21 10:08 Famotidine 20 Mg Tab FEEDTUBE Not Given BID JUDY Dextrose 1,000 mls @ 75 mls/hr 07/13/21 16:00 07/14/21 10:08 D5w IV 75 mls/hr DIRECT JUDY Administration Sodium Chloride 500 mls @ 0 mls/hr 07/14/21 09:51 Nacl 0.9% 500 Ml IV 07/14/21 20:00 ONCE NR As Directed Insulin Human Lispro 0 unit 06/26/21 12:00 07/14/21 05:58 Insulin Lispro 100 Unit/Ml SUB-Q 6 unit Q6HR JUDY Administration Protocol Metoclopramide HCl 10 mg 06/22/21 22:21 Metoclopramide 10 Mg/2 Ml Inj IV Q6H PRN Nausea And Vomiting Ondansetron HCl 4 mg 06/22/21 22:21 Ondansetron 4 Mg/2 Ml Inj IV Q8H PRN Nausea And Vomiting Pravastatin Sodium 40 mg 06/23/21 22:00 07/13/21 22:55 Pravastatin 40 Mg Tab PO 40 mg QHS JUDY Administration Simple Syrup 15 ml 06/29/21 16:20 Simple Syrup 15 Ml FEEDTUBE PRN PRN Hypoglycemia Simple Syrup 30 ml 06/29/21 16:20 Simple Syrup 15 Ml FEEDTUBE PRN PRN Hypoglycemia Sodium Bicarbonate 325 mg 06/29/21 16:20 Sodium Bicarbonate 325 Mg Tab FEEDTUBE PRN PRN For Clogged Feeding Tube Sodium Chloride 10 ml 06/23/21 10:00 07/14/21 10:09 Sodium Chloride 0.9% 10 Ml Flush Syringe IV 10 ml BID JUDY Administration Sodium Chloride 10 ml 06/22/21 22:21 Sodium Chloride 0.9% 10 Ml Flush Syringe IV PRN PRN LINE FLUSH
--- NOTE | 2021-07-14 11:30 | Event Note ---
Date: 07/14/21 I responded to code met this morning, patient was in severe hypoxia, severe hypotension, unresponsive and critically ill, respiratory therapist at the bedside, started BiPAP, some fluid bolus, we were considering transferring the patient to ICU for possible intubation and starting on pressors. I called patient's Mr. Marshal Polo [phone] and discussed patient's critical condition, acute hypoxic respiratory failure, hypotension . I discussed the goals of treatment , advanced directives and CODE STATUS .Mr. Marshal Kelley requested DNR/ DNI status and does not want her to suffer. The nurse witnessed this conversation, signed the necessary papers. Patient is DNR status
--- NOTE | 2021-07-14 11:38 | Event Note ---
Date: 07/14/21 Nurse called and reported patient had asystole, Patient DNR status, when I went and evaluated the patient Patient is unresponsive, pupils dilated and fixed, no cardiopulmonary activity Pronounced patient has on 07/14/2021 at 11:10 AM Time of ; 07/14/2021 at 11:10 AM I called patient's Mr. Marshal Kelley and informed him of the patient's passing. I answered all his questions and gave my condolences.
--- NOTE | 2021-07-14 11:39 | Death Summary ---
Summary - Providers Date of service: 07/14/21 Consults: 06/22/21 08:34 Consult to Physician [CONS] Stat Comment: Consulting Provider: BASIL LOUISE Physician Instructions: Reason For Exam: severe hyponatremia 06/22/21 10:44 Consult to Physician [CONS] Stat Comment: Consulting Provider: J LUIS CHAMBERLAIN Physician Instructions: Reason For Exam: critical care 06/23/21 15:51 Occupational Therapy Evaluate and Treat [CONS] Urgent Comment: Reason For Exam: to assess ADL status 06/25/21 11:52 Consult to Physician [CONS] Routine Comment: Consulting Provider: ZION GUILLEN Physician Instructions: Reason For Exam: afib 06/25/21 22:06 Consult to Dietitian/Nutrition [CONS] Routine Physician Instructions: Reason For Exam: Reason for Consult: Evaluate nutritional intake 06/26/21 00:51 Consult to Dietitian/Nutrition [CONS] Routine Physician Instructions: Reason For Exam: Reason for Consult: Write/Manage Tube Feeding 07/02/21 12:53 Physical Therapy Evaluation and Treat [CONS] Routine Comment: Reason For Exam: strengthening 07/02/21 15:26 Speech Therapy Evaluation and Treat [CONS] Routine Reason For Exam: evaluate swallowing 07/13/21 14:39 Consult to Physician [CONS] Routine Comment: Consulting Provider: CHARLY ACEVEDO Physician Instructions: Reason For Exam: Hypernatremia/reconsult Attending: SHADY CLARKE - summary Date of admission: 06/22/21 10:44 Date of : 07/14/21 (At 11:10)
--- NOTE | 2021-07-14 13:53 | Progress Note ---
Assessment and Plan Patient is 65-year-old female with a past medical history of hypertension, diabetes, and tobacco use who is brought to the ED for complaint of weakness and altered mental status that lasted 4 days prior to admission Acute Encephalopathy Symptomatic Hyponatremia-nephrology following Acute Respiratory Failure-on Bipap PNA UTI Hypotension AF with RVR (new onset) Hypokalemia (resolved) Hypomagnesemia (resolved) H/o HTN DM2 H/o Tobacco Abuse Echo reviewed - EF 60-65%, no significant valvular abnormalities. Plan: Patient hemoglobin has been noted to been decreasing since admission. Continue to hold Eliquis and hold plavix due to anemia Due to bradycardia hold BB Patient seen in conjunction with Dr. Monterroso who agrees with this plan of care. - Patient Problems (1) Atrial fibrillation with RVR Current Visit: Yes Status: Acute (2) Acute metabolic encephalopathy Current Visit: Yes Status: Acute (3) Acute hyponatremia Current Visit: Yes Status: Resolved (4) Community acquired pneumonia Current Visit: Yes Status: Resolved (5) Hypokalemia Current Visit: Yes Status: Acute (6) Essential (primary) hypertension Current Visit: Yes Status: Acute (7) Type 2 diabetes mellitus without complications Current Visit: Yes Status: Chronic (8) Hypomagnesemia Current Visit: Yes Status: Acute (9) UTI (urinary tract infection) Current Visit: Yes Status: Acute Qualifiers: Urinary tract infection type: acute cystitis Subjective Date of service: 07/14/21 Principal diagnosis: Acute encephalopathy, CAP, PAF with RVR, Acute resp failure, Hyponatremia Interval history: Patient had code MET this AM. Patient was reported to have bradycardia into 30s. Patient was made DNR/AND Objective Vital Signs Temp Pulse Resp BP Pulse Ox 07/14/21 07:32 64 26 H 63/30 92 07/14/21 06:36 98.9 F 114 H 18 94/44 94 07/14/21 05:03 97.2 F L 107 H 18 98/55 95 07/14/21 04:33 97.4 F L 115 H 18 96/42 95 07/14/21 04:03 97.4 F L 115 H 18 92/42 95 07/14/21 03:43 97.1 F L 60 17 91/30 95 07/14/21 02:00 101 H 07/14/21 00:16 98.9 F 20 97/35 07/13/21 22:00 95 07/13/21 21:15 94 07/13/21 20:02 97.6 F 114 H 16 111/54 95 07/13/21 17:29 94 - Physical Examination General: No Apparent Distress HEENT: Positive: EOMI, Normocephaly, Mucus Membranes Moist, Mucus Membranes Dry Neck: Positive: neck supple, trachea midline Cardiac: Positive: Reg Rate and Rhythm Lungs: Positive: Decreased Breath Sounds Neuro: Positive: Other (confused) Abdomen: Positive: Soft, Active Bowel Sounds. Negative: Tender Skin: Negative: Rash Musculoskeletal: Normal Range of Motion Extremities: Present: warm. Absent: edema - Labs and Meds CBC 07/14/21 Range/Units 07:28 WBC 10.6 (4.5-11.0) K/mm3 RBC 2.21 L (3.65-5.03) M/mm3 Hgb 6.8 L (10.1-14.3) gm/dl Hct 22.2 L (30.3-42.9) % Plt Count 217 (140-440) K/mm3 Lymph # (Auto) 2.1 (1.2-5.4) K/mm3 Park # (Auto) 0.7 (0.0-0.8) K/mm3 Eos # (Auto) 0.3 (0.0-0.4) K/mm3 Baso # (Auto) 0.1 (0.0-0.1) K/mm3 Comprehensive Metabolic Panel 07/13/21 07/14/21 Range/Units 18:43 07:28 Sodium 159 H 155 H (137-145) mmol/L Potassium 3.7 (3.6-5.0) mmol/L Chloride 104.7 (98-107) mmol/L Carbon Dioxide 38 H (22-30) mmol/L BUN 74 H (7-17) mg/dL Creatinine 1.2 (0.6-1.2) mg/dL Glucose 403 H (65-100) mg/dL Calcium 9.7 (8.4-10.2) mg/dL - Imaging and Cardiology EKG: image reviewed Echo: report reviewed - Telemetry EKG Rhythm: Sinus Rhythm - EKG Sinus rhythms and dysrhythmias: sinus rhythm, sinus bradycardia Ventricular dysrhythmias: ventricular premature com Myocardial infarction: septal [place] (old age or ind, anterior [place] (old age or i - Allied health notes Allied health notes reviewed: nursing
--- NOTE | 2021-07-19 20:00 | Electrocardiograph Report ---
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 EFFECT, diffuse leads Compared to ECG 06/25/2021 10:54:00 ST DEPRESSION now present Ventricular premature complex(es) no longer present Myocardial infarct finding no longer present Electronically Signed On 07-19-2021 19:59:48 EST by Emilio Smart
== END 2021-07-14 16:35 | DRG 70 ==
LOC: ED 07:41 → CC1 10:44 → 4A 22:27 → CC1 22:28 → IMCU 07-02 00:03 → 4A 07-02 17:08
PROVIDERS: ADMIT Internal Medicine; ATTEND Internal Medicine
PROC: 0BH17EZ Insertion of Endotracheal Airway into Trachea, Via Natural or Artificial Opening (ICD-10-PCS; principal; 2021-06-25)
PROC: 5A09457 Assistance with Respiratory Ventilation, 24-96 Consecutive Hours, Continuous Positive Airway Pressure (ICD-10-PCS; 2021-06-25)
PROC: 4A033R1 Measurement of Arterial Saturation, Peripheral, Percutaneous Approach (ICD-10-PCS; 2021-06-28)
PROC: 5A09557 Assistance with Respiratory Ventilation, Greater than 96 Consecutive Hours, Continuous Positive Airway Pressure (ICD-10-PCS; 2021-06-29)
PROC: 5A09557 Assistance with Respiratory Ventilation, Greater than 96 Consecutive Hours, Continuous Positive Airway Pressure (ICD-10-PCS; 2021-07-06)
PROC: 30233N1 Transfusion of Nonautologous Red Blood Cells into Peripheral Vein, Percutaneous Approach (ICD-10-PCS; 2021-07-10)
DX: G93.41 Metabolic encephalopathy (principal); J18.9 Pneumonia, unspecified organism; J96.01 Acute respiratory failure with hypoxia; J96.02 Acute respiratory failure with hypercapnia; E87.1 Hypo-osmolality and hyponatremia; N39.0 Urinary tract infection, site not specified; I48.91 Unspecified atrial fibrillation; I10 Essential (primary) hypertension; E11.9 Type 2 diabetes mellitus without complications; Z20.822 Contact with and (suspected) exposure to COVID-19; F17.210 Nicotine dependence, cigarettes, uncomplicated; E87.6 Hypokalemia; E83.42 Hypomagnesemia; Z66 Do not resuscitate
CPT/HCPCS: 31500; 36415; 36600; 70450; 71045; 74018; 80048; 80053; 80076; 81001; 82140; 82310; 82533; 82565; 82728; 82803; 82805; 82947; 82962; 83036; 83615; 83735; 83930; 83935; 84100; 84145; 84295; 84300; 84443; 84484; 84550; 85007; 85014; 85018; 85025; 85027; 85049; 85379; 85520; 85610; 85670; 85730; 86140; 86850; 86900; 86901; 86920; 87040; 87086; 87106; 93005; 93306; 94002; 94003; 94660; 94760; 99291; G0378; J2354; J3490; J7060; J9280; Q0162; Q9967; C8929; J0282; J0456; J0692; J0696; J1644; J1720; J1815; J1940; J2060; J2250; J3010; J3370; J3475; J3480; J7030; J7040; J7050; J7070; P9016; P9047; U0003